=== PATIENT | female | born 1945 | race Caucasian/White ===

== ENCOUNTER 2020-09-03 09:48 | Outpatient (REF) | payer MEDICARE, SELFPAY ==
--- NOTE | ~2020-09-03 | XR_ITS ---
EXAMINATION: XR LUMBOSACRAL SPINE CLINICAL INFORMATION: Lumbar radiculopathy. COMPARISON: Lumbar spine radiographs dated 07/08/2016. TECHNIQUE: 3 views of the lumbosacral spine. FINDINGS: Mild levocurvature of the lumbar spine is unchanged. No acute fracture or subluxation. No loss of vertebral body height. Multilevel loss of intervertebral disc height with endplate osteophytes. Multilevel bilateral facet arthropathy. Findings have slightly progressed when compared to the prior radiographs. No lytic or blastic osseous lesion. Atherosclerotic calcifications. XR/XR lumbar spine 2-3V IMPRESSION: Prominent multilevel degenerative disc disease and bilateral facet arthropathy, slightly progressed when compared to the prior radiographs.
[2020-09-03 10:42] LABS: MANUAL DIFF FLAG NO
[2020-09-03 11:00] LABS: Basophils Percent Auto 0.4 % (0-2); Eosinophils Absolute Auto 0.2 X10*3/uL (0.0-0.4); Eosinophils Percent Auto 4.2 % (0-4); Hematocrit 28.2 % (37-47); Hemoglobin 8.7 g/dl (12.0-16.0); Imm Gran Abs Auto 0.01 X10*3/uL (0.00-0.03); Imm Gran Pct Auto 0.2 % (0.0-0.4); Lymphocytes Absolute Auto 0.9 X10*3/uL (1.2-4.9); Lymphocytes Percent Auto 17.9 % (20-40); Mean Corpuscular HGB Conc 30.9 g/dl (31.0-35.0); Mean Corpuscular Volume 84.2 fL (80-98); Mean Platelet Volume 9.8 fL (9.4-12.3); Monocytes Absolute Auto 0.5 X10*3/uL (0.1-1.2); Monocytes Percent Auto 10.1 % (2-11); Neutrophils Absolute Auto 3.5 X10*3/uL (2.0-8.3); Neutrophils Percent Auto 67.2 % (45-73); Platelet Count 153 X10*3/uL (160-400); Red Blood Count 3.35 X10*6/uL (4.20-5.50); Red Cell Distribution Width 14.3 % (11.0-16.0); White Blood Count 5.3 X10*3/uL (4.8-10.8)
[2020-09-03 11:22] LABS: Alanine Aminotransferase 15 U/L (0-31); Albumin Level 3.9 g/dL (3.5-5.0); Alkaline Phosphatase 78 U/L (39-117); Anion Gap 16 (12-20); Aspartate Amino Transferase 21 U/L (5-31); Bilirubin Total 0.4 mg/dL (0.0-1.0); Blood Urea Nitrogen 24 mg/dL (9-16); Calcium 9.1 mg/dL (8.4-10.2); Carbon Dioxide 24 mmol/L (22-29); Chloride 98 mmol/L (96-108); Cholesterol 112 mg/dL; Estimated Glomerular Filt Rate 42; Glucose Fasting 142 mg/dL (60-99); HDL Cholesterol 42 mg/dL; LDL Cholesterol Calculated 57 mg/dl; Potassium 4.9 mmol/L (3.3-5.1); Sodium 133 mmol/L (135-145); Total Protein 6.8 g/dL (6.5-8.0); Triglycerides 67 mg/dL; Uric Acid 4.3 mg/dL (2.4-5.7)
[2020-09-03 11:48] LABS: Thyroid Stimulating Hormone 2.44 uIU/mL (0.32-4.0)
[2020-09-07 13:32] LABS: Vitamin D 25-OH, D2 <4 ng/mL; Vitamin D 25-OH, D3 36 ng/mL; Vitamin D 25-OH, Total 36 ng/mL (30-100)
== END 2020-09-03 09:49 | disposition home or self-care (01) ==
LOC: HO.XRAY 09:48
PROVIDERS: PCP Internal Medicine; Visit Provider Internal Medicine
DX: M54.16 Radiculopathy, lumbar region (principal); E78.00 Pure hypercholesterolemia, unspecified; M10.9 Gout, unspecified; E78.5 Hyperlipidemia, unspecified; E55.9 Vitamin D deficiency, unspecified; D64.9 Anemia, unspecified; D61.818 Other pancytopenia; L65.9 Nonscarring hair loss, unspecified
CPT/HCPCS: 36415; 72100; 80053; 80061; 82306; 84443; 84550; 85025

== ENCOUNTER → 2020-09-09 09:56 | Outpatient (BNVA) | payer MEDICARE, SELFPAY | PROVIDERS: PCP Internal Medicine; Visit Provider Student in an Organized Health Care Education/Training Program | DX: M70.61 Trochanteric bursitis, right hip (principal); M16.11 Unilateral primary osteoarthritis, right hip; M25.551 Pain in right hip; I10 Essential (primary) hypertension; E78.00 Pure hypercholesterolemia, unspecified; F41.8 Other specified anxiety disorders; Z87.891 Personal history of nicotine dependence; Z79.4 Long term (current) use of insulin; Z79.899 Other long term (current) drug therapy | CPT/HCPCS: 20610; 99212 ==

== ENCOUNTER → 2020-09-15 14:21 | Outpatient (BNVA) | payer MEDICARE, SELFPAY | PROVIDERS: PCP Internal Medicine; Visit Provider Internal Medicine | DX: E11.9 Type 2 diabetes mellitus without complications (principal); E78.5 Hyperlipidemia, unspecified; I10 Essential (primary) hypertension | CPT/HCPCS: 82947; 99212 ==

== ENCOUNTER 2020-12-20 11:12 | Emergency (ER) | payer MEDICARE, SELFPAY ==
[2020-12-20] VITALS (7 sets, daily range): BP systolic 158–184; BP diastolic 53–82; PULSE 62–95; RESP 14–18; TEMP 36.1–36.6; O2SAT 94–99; BMI 34.5
--- NOTE | ~2020-12-20 | US_ITS ---
EXAMINATION: US VENOUS ULTRASOUND WITH DOPPLER LOWER EXTREMITY, BILATERAL CLINICAL INFORMATION: Fall and swelling to both legs, rule out DVT COMPARISON: None TECHNIQUE: Ultrasound of the deep veins is performed from the hip to the calf with compression sonography and color and pulse Doppler assessment. Spectral analysis with color-flow imaging is performed. FINDINGS: RIGHT: There is normal venous compression and respiratory variation and augmented flow. The visualized common femoral vein, superficial femoral vein, profunda femoral vein, popliteal vein, and the trifurcation region shows no evidence of deep venous thrombosis. There is no significant popliteal fossa cyst. LEFT: There is normal venous compression and respiratory variation and augmented flow. The visualized common femoral vein, superficial femoral vein, profunda femoral vein, popliteal vein, and the trifurcation region shows no evidence of deep venous thrombosis. There is no significant popliteal fossa cyst. If the patient's symptoms persist, followup ultrasound in 5 days 7 days might be of value to exclude proximal propagation from a non-visualized calf vein. US/US venous duplex LE BI IMPRESSION: No DVT demonstrated in the bilateral lower extremity.
--- NOTE | ~2020-12-20 | XR_ITS ---
EXAMINATION: CR RIGHT ANKLE. CR RIGHT HIP. CLINICAL INFORMATION: Fall. Right ankle pain. Right hip pain. COMPARISON: CT scan of the abdomen and pelvis dated 06/27/2019. Right ankle films dated 08/13/2013. TECHNIQUE: 3 views of the right ankle. Frontal view of the pelvis and 2 views of the right hip performed on 3 images. FINDINGS: Right ankle: Prominent bimalleolar soft tissue swelling is seen, asymmetrically affecting the lateral malleolus. Diffuse osteopenia is noted. No acute fracture or dislocation is seen. The ankle mortise is symmetric and intact. Previously noted lucency in the lateral talar dome is less well visualized. There are now new/progressive mild hypertrophic changes seen in the tibiotalar and tibiofibular joint. No significant ankle joint effusion seen. Moderate-sized plantar and posterior calcaneal spurs noted. Mild intertarsal spurring also seen. Pelvis and right hip: Bony pelvis appears intact. Evaluation of the mid and lower sacrum is, however, limited by overlying stool and gas filled loops of bowel. Sacroiliac joints and pubic symphysis remain intact. Both hip joints are intact, though there is significant limitation in evaluating the hip on the crosstable lateral views due to technical difficulties and overlap of structures. There is mild degenerative change seen in both hip joints with superior joint space narrowing and acetabular roof sclerosis, spurring and cystic change noted. XR/XR hip RT min 2V IMPRESSION: 1. Prominent soft tissue swelling about the ankle. No definite acute fracture. Degenerative changes in the ankle and hindfoot and midfoot as discussed above. 2. No acute fracture of the pelvis or right hip, though evaluation of the right hip on crosstable lateral view is significantly limited. If patient's symptoms persist, repeat radiograph in 7-10 days is suggested for reassessment versus evaluation with CT scan.
--- NOTE | 2020-12-20 11:35 | ED.LOWEXIN ---
HPI - Extremity Injury (Lower) General Chief Complaint: Extremity Injury, Lower Stated Complaint: fell a month ago Time Seen by Provider: 12/20/20 11:26 Source: patient and EMS Mode of arrival: EMS Limitations: no limitations History of Present Illness HPI Narrative: this is a 75 yo female came in by EMS for evaluation of right ankle and right hip pain. patient lives home alone mostly independent, patient fell last month hurt her right ankle and right hip, patient is be able to ambulate with difficulty, patient woke up this morning with increased pain to the right ankle. Patient declined any recent fall, no head injury, no other complaint of the patient. Related Data Home Medications Medication Instructions Recorded Confirmed albuterol sulfate 90 mcg/actuation 2 puff INHALATION Q4H PRN 01/31/20 10/30/20 aerosol inhaler docusate sodium 100 mg capsule 100 mg PO BID PRN 01/31/20 10/30/20 insulin aspart U-100 100 unit/mL 3 - 9 unit SUBCUT TID 01/31/20 10/30/20 (3 mL) subcutaneous pen lancets 33 gauge #100 ea 01/31/20 10/30/20 insulin glargine 100 unit/mL (3 24 unit SUBCUT BEDTIME ml 09/15/20 10/30/20 mL) subcutaneous pen (Lantus Solostar U-100 Insulin) Previous Rx's Medication Instructions Recorded lancets 28 gauge (FreeStyle #100 ea 01/22/20 Lancets) spironolactone 25 mg tablet 25 mg PO DAILY 90 Days #90 tab 03/11/20 colchicine 0.6 mg capsule 0.6 mg PO DAILY 30 Days #30 cap 04/17/20 blood sugar diagnostic (FreeStyle 1 strip MISCELLANEOUS TID 90 Days 07/21/20 Lite Strips) #200 strip alcohol swabs 1 pad TOPICAL TID 67 Days #200 ea 07/22/20 triamcinolone acetonide 0.1 % 1 appl TOPICAL BID PRN 30 Days #80 07/24/20 topical cream g ascorbic acid (vitamin C) 500 mg 500 mg PO BID 90 Days #180 tab 08/19/20 tablet ferrous sulfate 325 mg (65 mg 325 mg PO DAILY 90 Days #90 tab 09/03/20 iron) tablet,delayed release metformin 1,000 mg tablet 1,000 mg PO BID 90 Days #180 tab 09/18/20 gabapentin 800 mg tablet 800 mg PO .every 6 hours 30 Days 09/25/20 #120 tab pen needle, diabetic 32 gauge x #50 ea 09/25/20 furosemide 20 mg tablet 20 mg PO BID 30 Days #60 tab 09/28/20 albuterol sulfate 2.5 mg INHALATION TID 30 Days #270 10/14/20 ml liraglutide 0.6 mg/0.1 mL (18 mg/3 1.8 mg SUBCUT DAILY 30 Days #9 ml 10/15/20 mL) subcutaneous pen injector ([employer] 3-Aric) atorvastatin 20 mg tablet 20 mg PO DAILY 90 Days #90 tab 10/18/20 montelukast 10 mg tablet 10 mg PO BEDTIME 90 Days #90 tab 10/18/20 grab bars #3 ea 10/28/20 mupirocin 2 % topical ointment 1 appl TOPICAL BID 14 Days #15 g 11/07/20 calcium carbonate 600 mg (1,500 1 tab PO BID 90 Days #180 tab 11/12/20 mg)-vitamin D3 400 unit tablet allopurinol 300 mg tablet 300 mg PO DAILY 90 Days #90 tab 12/02/20 clonazepam 0.5 mg tablet 0.5 mg PO BID PRN 30 Days #60 tab 12/02/20 tramadol 50 mg tablet 50 mg PO Q6H PRN 30 Days #120 tab 12/02/20 blood-glucose meter (FreeStyle #1 ea 12/15/20 Cathay Lite) losartan 50 mg tablet 50 mg PO DAILY 90 Days #90 tab 12/18/20 Allergies Allergy/AdvReac Type Severity Reaction Status Date / Time No Known Allergies Allergy Verified 10/02/20 14:09 Review of Systems Review of Systems: All other systems are reviewed and are negative Constitutional: Reports as per HPI and Reports no additional constitutional complaints Eyes: Reports as per HPI and Reports no additional eye complaints Reports system reviewed and no additional complaints, except as documented Cardiovascular: Reports as per HPI and Reports no additional cardiovascular complaints Respiratory: Reports as per HPI and Reports no additional respiratory complaints Gastrointestinal: Reports as per HPI and Reports no additional gastrointestinal complaints Genitourinary: Reports no additional female genitourinary complaints Musculoskeletal: Reports no additional musculoskeletal complaints Skin/Breast: Reports system reviewed and no additional complaints, except as docu Psychiatric: Reports no additional psychiatric complaints Endocrine: Reports no additional endocrine complaints Hematologic/Lymphatic: Reports no additional hematologic/lymphatic complaints Allergic/Immunologic: Reports no additional allergic/immunologic complaints Reports system reviewed and no additional complaints, except as documented and Reports Abnormal speech present FOR[facility]LY [facility] Past Medical History Medical History Chronic alcoholic liver disease Constipation by delayed colonic transit Depression with anxiety Diabetes mellitus Essential hypertension Gout Hair loss Hearing loss HLD (hyperlipidemia) HTN (hypertension) Hypovitaminosis D Lumbar degenerative disc disease Lumbar radiculopathy Moderate asthma Neuropathy Numbness Pure hypercholesterolemia T2DM (type 2 diabetes mellitus) Umbilical hernia Surgical History H/O cervical biopsy History of appendectomy History of colonoscopy History of total abdominal hysterectomy and bilateral salpingo-oophorectomy Family History Family History Father Renal failure Mother Fatty liver Ovarian cancer Maternal Aunt Ovarian cancer Breast cancer Brother Colon cancer Social History Social History Housing: Apartment Alcohol intake: former Patient Tobacco Use Status: Former Tobacco user Tobacco use type: Cigarette e-Cigarette/Vaping Use: Never Used Second Hand Smoke Exposure: No Advance Directives: No Advance Directives Information Provided: No service: No Current occupational status: employed Physical Exam Vital Signs: Vital Signs: Last Vital Signs Temp 97.0 F 12/20/20 11:33 Pulse 68 12/20/20 11:33 Resp 15 12/20/20 11:33 BP 184/78 H 12/20/20 11:33 Pulse Ox 94 12/20/20 11:33 Body Mass Index 34.5 Vital signs have been reviewed as appeared to be correct. Blood pressure elevated. Heart rate normal. Respiration rate normal. Temperature normal. Oxygen saturation normal. Appearance: Alert. Oriented X3. No acute distress. Head: Normal external exam. Normocephalic. Atraumatic. No Perez signs noted. No raccoon eyes noted Eyes: PERRLA. EOMI. Conjunctiva and sclera normal. Eyelids normal. ENT: TM's Normal. Pharynx normal. Uvula midline. Moist mucous membranes. No trismus noted. No drooling noted. No muffled voice noted. Neck: Normal inspection. Neck supple. FROM. No adenopathy. Thyroid Normal. No meningeal signs. No neck mass noted. CVS: Normal heart rate and rhythm. Heart sound normal. No murmurs noted. Pulses normal throughout. Respiratory: No respiratory distress. Painless inspiration. Breath sounds normal. No wheezes/rales/rhonchi noted. Chest nontender. No accessory muscle usage noted or decreased air movement noted. Abdomen: Soft and nontender. Bowel sounds normal in all 4 quadrants. No distention noted. No organomegaly noted. No visible injury noted. Back: No CVA tenderness. Full range of motion noted. Skin: Skin warm and dry. Normal skin color. Normal skin turgor. No rashes/lesions/lacerations noted. Extremities: Right lower ext. exam.: Right ankle normal inspection, tender to touch diffusely, no step-off, no deformity. Right hip exam is normal inspection, no deformity, tender to touch. Neuro: Oriented X 3. Cranial nerve exam: II-XII are grossly intact No motor deficit. No sensory deficit. Reflexes normal. Course Course Course Narrative: Assessment and plan. 75-year-old female's [place] came in for evaluation a fall month ago complaining of right hip/right ankle pain, exam and x-rays are unremarkable, labs are overall unremarkable in normal range. As discussed with the patient we will place the patient into a rehab/physical therapy. Reevaluation(s) Reevaluation #1: Physician observation started at 13;45 . Patient placed in physician observation because the patient needed more time for medication to work and to see PT/case management for evaluation and the need for placement patient's vital sign were stable, patient is alert and oriented , neuro exam unchanged, unremarkable rest of physical exam. Time: 13:45 MDM - Extremity Injury (Lower) Medical Records Attestation: I reviewed the patient's medical records. Lab Data Attestation: I reviewed the patient's lab results. Result diagrams: 12/20/20 13:06 12/20/20 13:06 Labs: Lab Results 12/20/20 12/20/20 Range/Units 13:06 13:06 WBC 6.0 (4.8-10.8) X10*3/uL RBC 3.78 L (4.20-5.50) X10*6/uL Hgb 11.3 L (12.0-16.0) g/dl Hct 35.0 L (37.0-47.0) % MCV 92.6 (80.0-98.0) fL MCH 29.9 (27.0-33.0) pg MCHC 32.3 (31.0-35.0) g/dl RDW 16.7 H (11.0-16.0) % Plt Count 145 L (160-400) X10*3/uL MPV 8.7 L (9.4-12.3) fL Immature Gran % (Auto) 0.2 (0.0-0.4) % Neut % (Auto) 73.9 H (45-73) % Lymph % (Auto) 15.4 L (20-40) % [place] % (Auto) 6.3 (2-11) % Eos % (Auto) 3.7 (0-4) % Baso % (Auto) 0.5 (0-2) % Lymph # (Auto) 0.9 L (1.2-4.9) X10*3/uL [place] # (Auto) 0.4 (0.1-1.2) X10*3/uL Eos # (Auto) 0.2 (0.0-0.4) X10*3/uL Baso # (Auto) 0.0 (0.0-0.2) X10*3/uL Abs Immat Gran (auto) 0.01 (0.00-0.03) X10*3/uL Absolute Neuts (auto) 4.45 (2.0-8.3) x10*3/uL Absolute Nucleated RBC 0.000 (0.0-0.012) X10*3/uL Nucleated RBC % (auto) 0.0 (0.0-0.2) /100WBC Sodium 140 (135-145) mmol/L Potassium 5.0 (3.3-5.1) mmol/L Chloride 99 (96-108) mmol/L Carbon Dioxide 32 H (22-29) mmol/L Anion Gap 14 (12-20) BUN 35 H (9-16) mg/dL Creatinine 1.35 (0.5-1.4) mg/dL Estim Creat Clear Calc 37.3 Estimated GFR 38 Random Glucose 147 H (60-115) mg/dL Calcium 9.8 (8.4-10.2) mg/dL Imaging Data Right ankle/right hip x-ray: Radiologist's impression: 1. Prominent soft tissue swelling about the ankle. No definite acute fracture. Degenerative changes in the ankle and hindfoot and midfoot as discussed above. 2. No acute fracture of the pelvis or right hip, though evaluation of the right hip on crosstable lateral view is significantly limited. If patient's symptoms persist, repeat radiograph in 7-10 days is suggested for reassessment versus evaluation with CT scan. Right lower extremities venous ultrasound: Radiologist's impression: No DVT demonstrated in bilateral lower extremities. Discharge Plan Discharge Clinical Impression: Adult failure to thrive, Ankle pain, Acute hip pain Prescriptions: No Action (DME) lancets [FreeStyle Lancets] 28 gauge misc See Rx Instructions .ROUTE .MEDSUPPLY Qty: 100 RF: 11 Hold Instructions: patient's request spironolactone 25 mg tablet 25 mg PO DAILY 90 Days Qty: 90 RF: 3 colchicine 0.6 mg capsule 0.6 mg PO DAILY 30 Days Qty: 30 RF: 0 blood sugar diagnostic [FreeStyle Lite Strips] Strip 1 strip miscellaneous TID 90 Days Qty: 200 RF: 3 Hold Instructions: patient request alcohol swabs Pads, Medicated 1 pad topical TID 67 Days Qty: 200 RF: 5 triamcinolone acetonide 0.1 % cream 1 appl topical BID PRN (Reason: rash) 30 Days Qty: 80 RF: 4 ascorbic acid (vitamin C) 500 mg tablet 500 mg PO BID 90 Days Qty: 180 RF: 3 ferrous sulfate 325 mg (65 mg iron) tablet,delayed release (DR/EC) 325 mg PO DAILY 90 Days Qty: 90 RF: 1 metformin 1,000 mg tablet 1,000 mg PO BID 90 Days Qty: 180 RF: 3 (DME) pen needle, diabetic 32 gauge x 5/32 needle See Rx Instructions ea .ROUTE TID Qty: 50 RF: 11 gabapentin 800 mg tablet 800 mg PO .every 6 hours 30 Days Qty: 120 RF: 6 furosemide 20 mg tablet 20 mg PO BID 30 Days Qty: 60 RF: 6 albuterol sulfate 2.5 mg /3 mL (0.083 %) solution for nebulization 2.5 mg inhalation TID 30 Days Qty: 270 RF: 3 Hold Instructions: Doctor's Order [employer] 3-Aric 0.6 mg/0.1 mL (18 mg/3 mL) pen injector 1.8 mg subcut DAILY 30 Days Qty: 9 RF: 6 montelukast 10 mg tablet 10 mg PO BEDTIME 90 Days Qty: 90 RF: 1 atorvastatin 20 mg tablet 20 mg PO DAILY 90 Days Qty: 90 RF: 3 (DME) grab bars See Rx Instructions .Route .MEDSUPPLY Qty: 3 RF: 0 mupirocin 2 % ointment 1 appl topical BID 14 Days Qty: 15 RF: 1 calcium carbonate-vitamin D3 600 mg(1,500mg) -400 unit tablet 1 tab PO BID 90 Days Qty: 180 RF: 3 clonazepam 0.5 mg tablet 0.5 mg PO BID PRN (Reason: anxiety) 30 Days Qty: 60 RF: 0 allopurinol 300 mg tablet 300 mg PO DAILY 90 Days Qty: 90 RF: 3 tramadol 50 mg tablet 50 mg PO Q6H PRN (Reason: pain) 30 Days Qty: 120 RF: 0 (DME) blood-glucose meter [FreeStyle Cathay Lite] Kit See Rx Instructions .ROUTE .MEDSUPPLY Qty: 1 RF: 0 losartan 50 mg tablet 50 mg PO DAILY 90 Days Qty: 90 RF: 3 docusate sodium 100 mg capsule 100 mg PO BID PRN (Reason: Constipation) RF: 0 (DME) lancets 33 gauge misc See Rx Instructions ea .ROUTE .MEDSUPPLY Qty: 100 RF: 0 Hold Instructions: patient's request insulin aspart U-100 100 unit/mL (3 mL) insulin pen 3 - 9 unit subcut TID RF: 0 albuterol sulfate 90 mcg/actuation HFA aerosol inhaler 2 puff inhalation Q4H PRN (Reason: Wheezing) RF: 0 Lantus Solostar U-100 Insulin 100 unit/mL (3 mL) insulin pen 24 unit subcut BEDTIME RF: 0
[2020-12-20 13:10] LABS: MANUAL DIFF FLAG NO
[2020-12-20 13:19] LABS: Basophils Percent Auto 0.5 % (0-2); Eosinophils Absolute Auto 0.2 X10*3/uL (0.0-0.4); Eosinophils Percent Auto 3.7 % (0-4); Hemoglobin 11.3 g/dl (12.0-16.0); Imm Gran Abs Auto 0.01 X10*3/uL (0.00-0.03); Imm Gran Pct Auto 0.2 % (0.0-0.4); Lymphocytes Absolute Auto 0.9 X10*3/uL (1.2-4.9); Lymphocytes Percent Auto 15.4 % (20-40); Mean Corpuscular HGB Conc 32.3 g/dl (31.0-35.0); Mean Corpuscular Hemoglobin 29.9 pg (27.0-33.0); Mean Corpuscular Volume 92.6 fL (80.0-98.0); Mean Platelet Volume 8.7 fL (9.4-12.3); Monocytes Absolute Auto 0.4 X10*3/uL (0.1-1.2); Monocytes Percent Auto 6.3 % (2-11); Neutrophils Absolute Auto 4.45 x10*3/uL (2.0-8.3); Neutrophils Percent Auto 73.9 % (45-73); Platelet Count 145 X10*3/uL (160-400); Red Blood Count 3.78 X10*6/uL (4.20-5.50); Red Cell Distribution Width 16.7 % (11.0-16.0)
[2020-12-20 13:27] LABS: Anion Gap 14 (12-20); Blood Urea Nitrogen 35 mg/dL (9-16); Calcium 9.8 mg/dL (8.4-10.2); Carbon Dioxide 32 mmol/L (22-29); Chloride 99 mmol/L (96-108); Creatinine Clr Calc Pharmacy 37.3; Estimated Glomerular Filt Rate 38; Glucose Random 147 mg/dL (60-115); Sodium 140 mmol/L (135-145)
--- NOTE | 2020-12-20 14:00 | PC.NURSE ---
pt at bedside
[2020-12-20 14:10] LABS: Appearance Urine CLEAR; Color Urine STRAW; Glucose Urine UA NEG (NEG); Leukocyte Esterase Urine NEG (NEG); Nitrite Urine NEG (NEG); PH 6.5 (5.0-8.0); Urine Blood NEG (NEG); Urine Ketones NEG (NEG); Urine Protein NEG (NEG-TRACE)
--- NOTE | 2020-12-20 14:23 | PC.NURSE ---
pt resting in bed at this time, awaiting dispo.
--- NOTE | 2020-12-20 15:32 | PC.NURSE ---
Jolanta Faith, daughter and proxy called,
--- NOTE | 2020-12-20 15:50 | MHC.CM.PN ---
Female 75 Consult received from ED, for placement. The patient BIBA for rt LE pain. A PT eval indicated that the pt will qualify for STR. The pt agrees with [facility] STR. Pt preferences obtained. Referral were sent out. The PT and ER info was sent for facility review. [facility] following [facility]. They will not have a bed until Tuesday. Several attempts to reach primary contact Jolanta Faith. There was not the option of leaving a . Second contact, Pts son, Nubia Faith was reached. He was notified of Pt coming to [facility] for LE pain. The discharge plan was reviewed.He was informed that She qualifies for rehab. He is aware that the pt provided preferences for STR. The referrals were sent. He is in agreement with discharge plan. He agreed to communicate our discussion to Jolanta because [facility] was not able to contact her. CM will follow.
[2020-12-20 15:53] LABS: Glucose, Whole Blood 87 mg/dL (60-115)
--- NOTE | 2020-12-20 16:14 | PC.NURSE ---
pt moved into room 9. cbg checked. denies any needs. call srinivasan in reach.
--- NOTE | 2020-12-20 18:29 | PC.NURSE ---
med rec done, aware.
[2020-12-20] MEDS: Colchicine 0.6 MG TABLET PO (20:30)
[2020-12-20] MEDS: Ferrous Sulfate 324 MG TABLET.DR PO (20:42)
[2020-12-20] MEDS: Spironolactone 25 MG TABLET PO (20:43)
[2020-12-20] MEDS: Gabapentin 400 MG CAPSULE 800 MG PO (20:43)
[2020-12-20] MEDS: Furosemide 20 MG TABLET PO (20:44)
[2020-12-20] MEDS: allopurinoL 300 MG TABLET PO (20:44)
[2020-12-20] MEDS: Losartan Potassium 50 MG TABLET PO (20:44)
[2020-12-20] MEDS: Calcium + Vitamin D 250 MG TABLET 500 MG PO (20:45)
[2020-12-20] MEDS: metFORMIN HCl 1,000 MG TABLET 1000 MG PO (20:45)
[2020-12-20] MEDS: Montelukast Sodium 10 MG TABLET PO (20:45)
[2020-12-20] MEDS: Atorvastatin Calcium 20 MG TABLET PO (20:45)
[2020-12-20] MEDS: Ascorbic Acid 500 MG TABLET PO (21:00)
[2020-12-20 22:42] LABS: Glucose, Whole Blood 162 mg/dL (60-115)
--- NOTE | 2020-12-21 00:04 | PC.NURSE ---
Moved pt to a hospital bed. Pt used commode before transfer to hospital bed. Pt has difficulty standing and moving to commode, recommended use of a pure wick. Pt agreeable to try for the night. Put pt on pure wick. Will continue to monitor.
--- NOTE | 2020-12-21 00:47 | PC.NURSE ---
Patient's insulin held due to BS of 162. aware.
[2020-12-21 03:40] VITALS: RESP 14
[2020-12-21 06:08] VITALS: BP 143/67; PULSE 70; RESP 14; O2SAT 95
[2020-12-21] MEDS: metFORMIN HCl 1,000 MG TABLET 1000 MG PO ×2 (09:02→20:57)
[2020-12-21] MEDS: Ascorbic Acid 500 MG TABLET PO ×2 (09:02→20:57)
[2020-12-21] MEDS: Calcium + Vitamin D 250 MG TABLET 500 MG PO ×2 (09:02→20:57)
[2020-12-21 09:03] VITALS: BP 143/67; PULSE 70
[2020-12-21] MEDS: Losartan Potassium 50 MG TABLET PO (09:03)
[2020-12-21] MEDS: Gabapentin 400 MG CAPSULE 800 MG PO ×3 (09:03→20:57)
[2020-12-21] MEDS: Ferrous Sulfate 324 MG TABLET.DR PO (09:03)
[2020-12-21] MEDS: allopurinoL 300 MG TABLET PO (09:03)
[2020-12-21] MEDS: Furosemide 20 MG TABLET PO ×2 (09:03→20:58)
[2020-12-21] MEDS: Spironolactone 25 MG TABLET PO (09:03)
[2020-12-21] MEDS: Atorvastatin Calcium 20 MG TABLET PO (09:04)
[2020-12-21] MEDS: traMADoL HCL 50 MG TABLET PO ×3 (09:09→15:56)
--- NOTE | 2020-12-21 09:23 | PC.NURSE ---
cleaned up in bathroom, bed linens changed, pt 2 assist. sts feeling stronger today than yesterday. tolerating po, took all of morning medications, eating breakfast at this time.
--- NOTE | 2020-12-21 11:33 | MHC.CM.PN ---
Addendum entered by Janny Rubalcava 12/21/20 15:01: Met with the patient this afternoon to review DP. I updated the patient on the bed search. [facility]. They did not have a bed over the weekend, but will offer if they have bed availability Tuesday. She told me that has been vaccinated x2 Moderna Feb 2020. I was notified by staff that there was an error in the # listed for Jolanta her primary contact. Using the correct #, I was able to leave a VM. I updated her on the bed search. The contact info for the ER tomorrow will be Ariane. Original Note: Female 75 DX LE pain s/p recent fall. We do not have a bed offer for today. R facilities are following for Tuesday, [facility]. More referrals have been sent out today with updated info. We have not received a bed offer yet, from the new facility referrals. T/W attempted to reach the 2 contacts listed. A VM was left requesting vaccine status. An update on the bed search was also communicated. CM will follow.
[2020-12-21 15:19] VITALS: BP 170/61; PULSE 64; RESP 16; O2SAT 94
[2020-12-21] MEDS: polyethylene glycoL 3350 17 GM POWD.PACK PO (15:56)
[2020-12-21] MEDS: Magnesium Citrate 300 ML SOLUTION 150 ML PO (19:02)
[2020-12-21 20:54] LABS: Glucose, Whole Blood 233 mg/dL (60-115)
[2020-12-21] MEDS: Montelukast Sodium 10 MG TABLET PO (20:57)
[2020-12-21] MEDS: Insulin Glargine,Hum.rec.anlog 100 UNIT/ML 10 ML VIAL 24 UNIT SUBCUT (20:57)
--- NOTE | 2020-12-21 21:01 | PC.NURSE ---
Pt is alert/oriented. Reports 6/10 right hip pain, repositioned in bed with some relief. Up to commode after Mag citrate, no bowel movement at this time. Reports last BM 4 days ago, adb is soft, nontender with +bowel sounds x 4 Pt given PM meds and Lantus, with HS snack. VSS.
[2020-12-21 21:06] VITALS: BP 152/76; PULSE 65; RESP 16
--- NOTE | 2020-12-22 02:53 | PC.NURSE ---
Pt asleep, RR even/unlabored
[2020-12-22] MEDS: Gabapentin 400 MG CAPSULE 800 MG PO ×3 (03:01→15:43)
[2020-12-22] MEDS: Ascorbic Acid 500 MG TABLET PO (09:26)
[2020-12-22] MEDS: Calcium + Vitamin D 250 MG TABLET 500 MG PO (09:26)
[2020-12-22] MEDS: Atorvastatin Calcium 20 MG TABLET PO (09:26)
[2020-12-22] MEDS: metFORMIN HCl 1,000 MG TABLET 1000 MG PO (09:26)
[2020-12-22 09:29] VITALS: BP 144/62; PULSE 66
[2020-12-22] MEDS: Spironolactone 25 MG TABLET PO (09:29)
[2020-12-22 09:32] VITALS: BP 146/62; PULSE 66
[2020-12-22] MEDS: allopurinoL 300 MG TABLET PO (09:32)
[2020-12-22] MEDS: Losartan Potassium 50 MG TABLET PO (09:32)
--- NOTE | 2020-12-22 09:34 | MHC.CM.ED ---
Patient remains in ER. Clinical updates sent to facilities still following patient: [facility] and [facility]. Continue to monitor for d/c needs.
[2020-12-22] MEDS: Furosemide 20 MG TABLET PO (09:35)
[2020-12-22 09:37] VITALS: BP 146/62; PULSE 66; RESP 16; O2SAT 97
--- NOTE | 2020-12-22 09:52 | PC.NURSE ---
pt alert, vss. pt given breakfast, morning meds given as documented. pt denies chest pain/sob. pt reports 4/10 pain in both her right arm and knee. Pt resting quietly, no apparent distress noted.
[2020-12-22] MEDS: Colchicine 0.6 MG TABLET PO (11:29)
--- NOTE | 2020-12-22 11:30 | PC.NURSE ---
Pt reported she has not had a b.m. in 4 days. she stated she was given something this morning to help her go but it did not help. Pt requested something else to help her with her bowels. PRN Colace given. Pharmacy brought med up, med administered late.
[2020-12-22] MEDS: Docusate Sodium 100 MG CAPSULE PO (11:41)
--- NOTE | 2020-12-22 13:04 | MHC.CM.ED ---
[facility] is only facility that is able to offer a bed. Spoke with patient's daughter, Jolanta, via telephone. Jolanta accepts bed. [facility] will go for insurance auth. Rapid Covid swab is ordered. Continue to monitor for d/c needs.
[2020-12-22 14:03] LABS: COVID-19 Test Negative (Negative)
--- NOTE | 2020-12-22 15:41 | MHC.CM.ED ---
Insurance auth has been obtained by [facility]. Patient can leave at 530pm. [facility] booked. Med nec with chart. Patient, daughter Antonio Stover RN and Dr Bailey aware. Continue to moior for d/c needs.
[2020-12-22 15:46] VITALS: BP 157/73; PULSE 68; RESP 18; O2SAT 97
--- NOTE | 2020-12-22 16:00 | PC.NURSE ---
pt accepted to [facility] pt to be transported to facility via ambulance around 1730. pt aware. lunch given, vss. daughter at bedside.
== END 2020-12-22 18:56 | disposition skilled nursing facility (03) ==
PROVIDERS: Emergency Medicine; Emergency Provider Emergency Medicine; PCP Internal Medicine
DX: R62.7 Adult failure to thrive (principal); M25.572 Pain in left ankle and joints of left foot; M25.571 Pain in right ankle and joints of right foot; M25.552 Pain in left hip; M25.551 Pain in right hip; R60.0 Localized edema; Z20.822 Contact with and (suspected) exposure to COVID-19; Z79.899 Other long term (current) drug therapy
CPT/HCPCS: 36415; 73502; 73600; 80048; 81003; 82947; 85025; 87635; 93970; 97162; 99285

== ENCOUNTER 2020-12-23 06:40 | Outpatient (REF) | payer MEDICARE, SELFPAY ==
[2020-12-23 06:45] LABS: MANUAL DIFF FLAG NO
[2020-12-23 06:55] LABS: Basophils Absolute Auto 0.1 X10*3/uL (0.0-0.2); Basophils Percent Auto 0.8 % (0-2); Eosinophils Absolute Auto 0.3 X10*3/uL (0.0-0.4); Eosinophils Percent Auto 3.3 % (0-4); Hematocrit 37.7 % (37.0-47.0); Hemoglobin 12.1 g/dl (12.0-16.0); Imm Gran Abs Auto 0.02 X10*3/uL (0.00-0.03); Imm Gran Pct Auto 0.3 % (0.0-0.4); Lymphocytes Absolute Auto 1.2 X10*3/uL (1.2-4.9); Lymphocytes Percent Auto 16.4 % (20-40); Mean Corpuscular HGB Conc 32.1 g/dl (31.0-35.0); Mean Corpuscular Volume 90.4 fL (80.0-98.0); Mean Platelet Volume 9.7 fL (9.4-12.3); Monocytes Absolute Auto 0.6 X10*3/uL (0.1-1.2); Monocytes Percent Auto 7.5 % (2-11); Neutrophils Absolute Auto 5.42 x10*3/uL (2.0-8.3); Neutrophils Percent Auto 71.7 % (45-73); Platelet Count 210 X10*3/uL (160-400); Red Blood Count 4.17 X10*6/uL (4.20-5.50); Red Cell Distribution Width 16.1 % (11.0-16.0); White Blood Count 7.6 X10*3/uL (4.8-10.8)
[2020-12-23 07:12] LABS: Alanine Aminotransferase 19 U/L (0-31); Albumin Level 4.1 g/dL (3.5-5.0); Alkaline Phosphatase 86 U/L (39-117); Anion Gap 17 (12-20); Aspartate Amino Transferase 22 U/L (5-31); Bilirubin Total 0.6 mg/dL (0.0-1.0); Blood Urea Nitrogen 38 mg/dL (9-16); Calcium 9.8 mg/dL (8.4-10.2); Carbon Dioxide 28 mmol/L (22-29); Chloride 98 mmol/L (96-108); Estimated Glomerular Filt Rate 43; Glucose Random 173 mg/dL (60-115); Potassium 4.8 mmol/L (3.3-5.1); Sodium 138 mmol/L (135-145); Total Protein 7.3 g/dL (6.5-8.0)
== END 2020-12-23 06:41 | disposition home or self-care (01) ==
LOC: HO.MMNH1L 06:40
PROVIDERS: Visit Provider Family Medicine
DX: I10 Essential (primary) hypertension (principal); E11.9 Type 2 diabetes mellitus without complications; K76.9 Liver disease, unspecified
CPT/HCPCS: 36415; 80053; 85025

== ENCOUNTER 2020-12-29 00:31 | Outpatient (REF) | payer MEDICARE, SELFPAY ==
[2020-12-29 06:25] LABS: MANUAL DIFF FLAG NO
[2020-12-29 06:53] LABS: Basophils Absolute Auto 0.1 X10*3/uL (0.0-0.2); Basophils Percent Auto 0.9 % (0-2); Eosinophils Absolute Auto 0.2 X10*3/uL (0.0-0.4); Eosinophils Percent Auto 4.4 % (0-4); Hematocrit 34.4 % (37.0-47.0); Imm Gran Abs Auto 0.01 X10*3/uL (0.00-0.03); Imm Gran Pct Auto 0.2 % (0.0-0.4); Lymphocytes Absolute Auto 1.6 X10*3/uL (1.2-4.9); Lymphocytes Percent Auto 29.2 % (20-40); Mean Corpuscular Hemoglobin 29.9 pg (27.0-33.0); Mean Corpuscular Volume 93.5 fL (80.0-98.0); Mean Platelet Volume 9.4 fL (9.4-12.3); Monocytes Absolute Auto 0.5 X10*3/uL (0.1-1.2); Monocytes Percent Auto 8.5 % (2-11); Neutrophils Absolute Auto 3.1 x10*3/uL (2.0-8.3); Neutrophils Percent Auto 56.8 % (45-73); Platelet Count 148 X10*3/uL (160-400); Red Blood Count 3.68 X10*6/uL (4.20-5.50); Red Cell Distribution Width 15.4 % (11.0-16.0); White Blood Count 5.4 X10*3/uL (4.8-10.8)
[2020-12-29 07:52] LABS: Anion Gap 15 (12-20); Blood Urea Nitrogen 40 mg/dL (9-16); Calcium 8.8 mg/dL (8.4-10.2); Carbon Dioxide 30 mmol/L (22-29); Chloride 101 mmol/L (96-108); Estimated Glomerular Filt Rate 44; Glucose Random 40 mg/dL (60-115); Potassium 3.9 mmol/L (3.3-5.1); Sodium 142 mmol/L (135-145)
== END 2020-12-29 00:32 | disposition home or self-care (01) ==
LOC: HO.MMNH1L 00:31
PROVIDERS: Visit Provider Family Medicine
DX: K76.9 Liver disease, unspecified (principal); I10 Essential (primary) hypertension; E11.9 Type 2 diabetes mellitus without complications
CPT/HCPCS: 36415; 80048; 85025

== ENCOUNTER 2021-01-05 00:30 | Outpatient (REF) | payer MEDICARE, SELFPAY ==
[2021-01-05 07:11] LABS: MANUAL DIFF FLAG NO
[2021-01-05 07:30] LABS: Basophils Percent Auto 0.5 % (0-2); Eosinophils Absolute Auto 0.3 X10*3/uL (0.0-0.4); Eosinophils Percent Auto 4.8 % (0-4); Hematocrit 35.3 % (37.0-47.0); Lymphocytes Absolute Auto 1.5 X10*3/uL (1.2-4.9); Lymphocytes Percent Auto 26.2 % (20-40); Mean Corpuscular HGB Conc 31.2 g/dl (31.0-35.0); Mean Corpuscular Hemoglobin 29.5 pg (27.0-33.0); Mean Corpuscular Volume 94.6 fL (80.0-98.0); Monocytes Absolute Auto 0.6 X10*3/uL (0.1-1.2); Neutrophils Absolute Auto 3.3 x10*3/uL (2.0-8.3); Neutrophils Percent Auto 58.5 % (45-73); Platelet Count 147 X10*3/uL (160-400); Red Blood Count 3.73 X10*6/uL (4.20-5.50); Red Cell Distribution Width 14.9 % (11.0-16.0); White Blood Count 5.6 X10*3/uL (4.8-10.8)
[2021-01-05 08:09] LABS: Anion Gap 16 (12-20); Blood Urea Nitrogen 35 mg/dL (9-16); Calcium 9.6 mg/dL (8.4-10.2); Carbon Dioxide 33 mmol/L (22-29); Chloride 98 mmol/L (96-108); Estimated Glomerular Filt Rate 32; Glucose Random 76 mg/dL (60-115); Potassium 4.5 mmol/L (3.3-5.1); Sodium 142 mmol/L (135-145)
== END 2021-01-05 00:31 | disposition home or self-care (01) ==
LOC: HO.MMNH1L 00:30
PROVIDERS: Visit Provider Family Medicine
DX: K76.9 Liver disease, unspecified (principal); I10 Essential (primary) hypertension; E11.9 Type 2 diabetes mellitus without complications
CPT/HCPCS: 36415; 80048; 85025

== ENCOUNTER 2021-01-12 22:06 | Outpatient (REF) | payer MEDICARE, SELFPAY ==
[2021-01-12 06:53] LABS: MANUAL DIFF FLAG NO
[2021-01-12 07:05] LABS: Basophils Percent Auto 0.5 % (0-2); Eosinophils Absolute Auto 0.2 X10*3/uL (0.0-0.4); Hematocrit 33.9 % (37.0-47.0); Hemoglobin 10.5 g/dl (12.0-16.0); Imm Gran Abs Auto 0.01 X10*3/uL (0.00-0.03); Imm Gran Pct Auto 0.2 % (0.0-0.4); Lymphocytes Percent Auto 24.7 % (20-40); Mean Corpuscular Hemoglobin 29.7 pg (27.0-33.0); Monocytes Absolute Auto 0.4 X10*3/uL (0.1-1.2); Monocytes Percent Auto 9.1 % (2-11); Neutrophils Absolute Auto 2.5 x10*3/uL (2.0-8.3); Neutrophils Percent Auto 60.5 % (45-73); Platelet Count 121 X10*3/uL (160-400); Red Blood Count 3.53 X10*6/uL (4.20-5.50); Red Cell Distribution Width 14.7 % (11.0-16.0); White Blood Count 4.2 X10*3/uL (4.8-10.8)
[2021-01-12 07:22] LABS: Anion Gap 16 (12-20); Blood Urea Nitrogen 35 mg/dL (9-16); Calcium 9.6 mg/dL (8.4-10.2); Carbon Dioxide 31 mmol/L (22-29); Chloride 102 mmol/L (96-108); Estimated Glomerular Filt Rate 38; Glucose Random 63 mg/dL (60-115); Potassium 4.2 mmol/L (3.3-5.1); Sodium 145 mmol/L (135-145)
== END 2021-01-12 22:07 | disposition home or self-care (01) ==
LOC: HO.MMNH1L 22:06
PROVIDERS: Visit Provider Family Medicine
DX: K76.9 Liver disease, unspecified (principal); I10 Essential (primary) hypertension; E11.9 Type 2 diabetes mellitus without complications
CPT/HCPCS: 36415; 80048; 85025

== ENCOUNTER 2021-01-19 00:56 | Outpatient (REF) | payer MEDICARE, SELFPAY ==
[2021-01-19 06:40] LABS: MANUAL DIFF FLAG NO
[2021-01-19 06:54] LABS: Basophils Percent Auto 0.7 % (0-2); Eosinophils Absolute Auto 0.2 X10*3/uL (0.0-0.4); Eosinophils Percent Auto 4.2 % (0-4); Hemoglobin 10.5 g/dl (12.0-16.0); Imm Gran Abs Auto 0.01 X10*3/uL (0.00-0.03); Imm Gran Pct Auto 0.2 % (0.0-0.4); Lymphocytes Absolute Auto 1.2 X10*3/uL (1.2-4.9); Lymphocytes Percent Auto 28.1 % (20-40); Mean Corpuscular HGB Conc 30.9 g/dl (31.0-35.0); Mean Corpuscular Hemoglobin 29.8 pg (27.0-33.0); Mean Corpuscular Volume 96.6 fL (80.0-98.0); Monocytes Absolute Auto 0.4 X10*3/uL (0.1-1.2); Monocytes Percent Auto 8.2 % (2-11); Neutrophils Absolute Auto 2.5 x10*3/uL (2.0-8.3); Neutrophils Percent Auto 58.6 % (45-73); Platelet Count 118 X10*3/uL (160-400); Red Blood Count 3.52 X10*6/uL (4.20-5.50); Red Cell Distribution Width 14.6 % (11.0-16.0); White Blood Count 4.3 X10*3/uL (4.8-10.8)
[2021-01-19 07:28] LABS: Anion Gap 15 (12-20); Blood Urea Nitrogen 35 mg/dL (9-16); Calcium 9.8 mg/dL (8.4-10.2); Carbon Dioxide 30 mmol/L (22-29); Chloride 100 mmol/L (96-108); Estimated Glomerular Filt Rate 38; Glucose Random 106 mg/dL (60-115); Potassium 4.2 mmol/L (3.3-5.1); Sodium 141 mmol/L (135-145)
== END 2021-01-19 00:57 | disposition home or self-care (01) ==
LOC: HO.MMNH1L 00:56
PROVIDERS: Visit Provider Family Medicine
DX: I10 Essential (primary) hypertension (principal); E11.9 Type 2 diabetes mellitus without complications; K76.9 Liver disease, unspecified
CPT/HCPCS: 36415; 80048; 85025

== ENCOUNTER 2021-01-26 00:16 | Outpatient (REF) | payer MEDICARE, SELFPAY ==
[2021-01-26 07:34] LABS: MANUAL DIFF FLAG NO
[2021-01-26 08:06] LABS: Basophils Percent Auto 0.4 % (0-2); Eosinophils Absolute Auto 0.2 X10*3/uL (0.0-0.4); Hematocrit 34.5 % (37.0-47.0); Imm Gran Abs Auto 0.02 X10*3/uL (0.00-0.03); Imm Gran Pct Auto 0.4 % (0.0-0.4); Lymphocytes Absolute Auto 1.5 X10*3/uL (1.2-4.9); Lymphocytes Percent Auto 28.4 % (20-40); Mean Corpuscular HGB Conc 31.9 g/dl (31.0-35.0); Mean Corpuscular Hemoglobin 30.7 pg (27.0-33.0); Mean Corpuscular Volume 96.4 fL (80.0-98.0); Mean Platelet Volume 10.1 fL (9.4-12.3); Monocytes Absolute Auto 0.4 X10*3/uL (0.1-1.2); Monocytes Percent Auto 8.4 % (2-11); Neutrophils Percent Auto 58.4 % (45-73); Platelet Count 131 X10*3/uL (160-400); Red Blood Count 3.58 X10*6/uL (4.20-5.50); Red Cell Distribution Width 14.5 % (11.0-16.0); White Blood Count 5.2 X10*3/uL (4.8-10.8)
[2021-01-26 08:51] LABS: Anion Gap 13 (12-20); Blood Urea Nitrogen 29 mg/dL (9-16); Calcium 9.4 mg/dL (8.4-10.2); Carbon Dioxide 32 mmol/L (22-29); Chloride 103 mmol/L (96-108); Estimated Glomerular Filt Rate 39; Glucose Random 55 mg/dL (60-115); Potassium 4.3 mmol/L (3.3-5.1); Sodium 144 mmol/L (135-145)
== END 2021-01-26 00:17 | disposition home or self-care (01) ==
LOC: HO.MMNH1L 00:16
PROVIDERS: Visit Provider Family Medicine
DX: K76.9 Liver disease, unspecified (principal); I10 Essential (primary) hypertension; E11.9 Type 2 diabetes mellitus without complications
CPT/HCPCS: 36415; 80048; 85025

== ENCOUNTER 2021-02-02 00:15 | Outpatient (REF) | payer MEDICARE, SELFPAY ==
[2021-02-02 06:28] LABS: MANUAL DIFF FLAG NO
[2021-02-02 06:59] LABS: Basophils Percent Auto 0.6 % (0-2); Eosinophils Absolute Auto 0.2 X10*3/uL (0.0-0.4); Eosinophils Percent Auto 3.8 % (0-4); Hemoglobin 10.9 g/dl (12.0-16.0); Imm Gran Abs Auto 0.01 X10*3/uL (0.00-0.03); Imm Gran Pct Auto 0.2 % (0.0-0.4); Lymphocytes Absolute Auto 1.2 X10*3/uL (1.2-4.9); Lymphocytes Percent Auto 24.9 % (20-40); Mean Corpuscular HGB Conc 31.1 g/dl (31.0-35.0); Mean Corpuscular Hemoglobin 30.2 pg (27.0-33.0); Mean Platelet Volume 10.2 fL (9.4-12.3); Monocytes Absolute Auto 0.5 X10*3/uL (0.1-1.2); Monocytes Percent Auto 11.3 % (2-11); Neutrophils Absolute Auto 2.8 x10*3/uL (2.0-8.3); Neutrophils Percent Auto 59.2 % (45-73); Platelet Count 125 X10*3/uL (160-400); Red Blood Count 3.61 X10*6/uL (4.20-5.50); Red Cell Distribution Width 14.3 % (11.0-16.0); White Blood Count 4.8 X10*3/uL (4.8-10.8)
[2021-02-02 07:21] LABS: Anion Gap 15 (12-20); Blood Urea Nitrogen 32 mg/dL (9-16); Calcium 9.8 mg/dL (8.4-10.2); Carbon Dioxide 33 mmol/L (22-29); Chloride 99 mmol/L (96-108); Estimated Glomerular Filt Rate 33; Glucose Random 99 mg/dL (60-115); Sodium 142 mmol/L (135-145)
== END 2021-02-02 00:16 | disposition home or self-care (01) ==
LOC: HO.MMNH1L 00:15
PROVIDERS: Visit Provider Family Medicine
DX: I10 Essential (primary) hypertension (principal); E11.9 Type 2 diabetes mellitus without complications; K76.9 Liver disease, unspecified
CPT/HCPCS: 36415; 80048; 85025

== ENCOUNTER 2021-02-09 01:27 | Outpatient (REF) | payer MEDICARE, SELFPAY ==
[2021-02-09 06:48] LABS: MANUAL DIFF FLAG NO
[2021-02-09 07:41] LABS: Anion Gap 12 (12-20); Blood Urea Nitrogen 31 mg/dL (9-16); Calcium 9.8 mg/dL (8.4-10.2); Carbon Dioxide 35 mmol/L (22-29); Chloride 103 mmol/L (96-108); Estimated Glomerular Filt Rate 34; Glucose Random 111 mg/dL (60-115); Potassium 4.5 mmol/L (3.3-5.1); Sodium 145 mmol/L (135-145)
[2021-02-09 08:53] LABS: Basophils Percent Auto 0.5 % (0-2); Eosinophils Absolute Auto 0.1 X10*3/uL (0.0-0.4); Eosinophils Percent Auto 3.3 % (0-4); Hemoglobin 11.1 g/dl (12.0-16.0); Imm Gran Abs Auto 0.02 X10*3/uL (0.00-0.03); Imm Gran Pct Auto 0.5 % (0.0-0.4); Lymphocytes Absolute Auto 1.3 X10*3/uL (1.2-4.9); Mean Corpuscular HGB Conc 30.8 g/dl (31.0-35.0); Mean Corpuscular Hemoglobin 29.6 pg (27.0-33.0); Mean Platelet Volume 10.3 fL (9.4-12.3); Monocytes Absolute Auto 0.3 X10*3/uL (0.1-1.2); Neutrophils Absolute Auto 2.4 x10*3/uL (2.0-8.3); Neutrophils Percent Auto 56.7 % (45-73); Platelet Count 122 X10*3/uL (160-400); Red Blood Count 3.75 X10*6/uL (4.20-5.50); Red Cell Distribution Width 14.2 % (11.0-16.0); White Blood Count 4.2 X10*3/uL (4.8-10.8)
== END 2021-02-09 01:28 | disposition home or self-care (01) ==
LOC: HO.MMNH1L 01:27
PROVIDERS: Visit Provider Family Medicine
DX: K76.9 Liver disease, unspecified (principal); I10 Essential (primary) hypertension; E11.9 Type 2 diabetes mellitus without complications
CPT/HCPCS: 36415; 80048; 85025

== ENCOUNTER 2021-02-16 00:50 | Outpatient (REF) | payer MEDICARE, SELFPAY ==
[2021-02-16 06:47] LABS: MANUAL DIFF FLAG NO
[2021-02-16 07:08] LABS: Basophils Percent Auto 0.5 % (0-2); Eosinophils Absolute Auto 0.2 X10*3/uL (0.0-0.4); Hematocrit 33.9 % (37.0-47.0); Hemoglobin 10.4 g/dl (12.0-16.0); Imm Gran Abs Auto 0.01 X10*3/uL (0.00-0.03); Imm Gran Pct Auto 0.3 % (0.0-0.4); Lymphocytes Absolute Auto 1.1 X10*3/uL (1.2-4.9); Lymphocytes Percent Auto 26.4 % (20-40); Mean Corpuscular HGB Conc 30.7 g/dl (31.0-35.0); Mean Corpuscular Hemoglobin 29.9 pg (27.0-33.0); Mean Corpuscular Volume 97.4 fL (80.0-98.0); Mean Platelet Volume 9.9 fL (9.4-12.3); Monocytes Absolute Auto 0.5 X10*3/uL (0.1-1.2); Monocytes Percent Auto 11.6 % (2-11); Neutrophils Absolute Auto 2.3 x10*3/uL (2.0-8.3); Neutrophils Percent Auto 57.2 % (45-73); Platelet Count 108 X10*3/uL (160-400); Red Blood Count 3.48 X10*6/uL (4.20-5.50); Red Cell Distribution Width 14.6 % (11.0-16.0)
[2021-02-16 07:44] LABS: Anion Gap 17 (12-20); Blood Urea Nitrogen 37 mg/dL (9-16); Calcium 9.4 mg/dL (8.4-10.2); Carbon Dioxide 30 mmol/L (22-29); Chloride 104 mmol/L (96-108); Estimated Glomerular Filt Rate 28; Glucose Random 96 mg/dL (60-115); Potassium 4.7 mmol/L (3.3-5.1); Sodium 146 mmol/L (135-145)
== END 2021-02-16 00:51 | disposition home or self-care (01) ==
LOC: HO.MMNH1L 00:50
PROVIDERS: Visit Provider Family Medicine
DX: I10 Essential (primary) hypertension (principal); E11.9 Type 2 diabetes mellitus without complications; K76.9 Liver disease, unspecified
CPT/HCPCS: 36415; 80048; 85025

== ENCOUNTER 2021-02-23 00:21 | Outpatient (REF) | payer MEDICARE, SELFPAY ==
[2021-02-23 06:43] LABS: MANUAL DIFF FLAG NO
[2021-02-23 07:15] LABS: Basophils Percent Auto 0.7 % (0-2); Eosinophils Absolute Auto 0.2 X10*3/uL (0.0-0.4); Eosinophils Percent Auto 4.7 % (0-4); Hematocrit 33.4 % (37.0-47.0); Hemoglobin 10.6 g/dl (12.0-16.0); Imm Gran Abs Auto 0.01 X10*3/uL (0.00-0.03); Imm Gran Pct Auto 0.2 % (0.0-0.4); Lymphocytes Absolute Auto 1.3 X10*3/uL (1.2-4.9); Lymphocytes Percent Auto 30.7 % (20-40); Mean Corpuscular HGB Conc 31.7 g/dl (31.0-35.0); Mean Corpuscular Hemoglobin 30.5 pg (27.0-33.0); Monocytes Absolute Auto 0.4 X10*3/uL (0.1-1.2); Neutrophils Absolute Auto 2.3 x10*3/uL (2.0-8.3); Neutrophils Percent Auto 54.7 % (45-73); Platelet Count 118 X10*3/uL (160-400); Red Blood Count 3.48 X10*6/uL (4.20-5.50); Red Cell Distribution Width 14.2 % (11.0-16.0); White Blood Count 4.2 X10*3/uL (4.8-10.8)
[2021-02-23 07:55] LABS: Anion Gap 14 (12-20); Blood Urea Nitrogen 29 mg/dL (9-16); Calcium 9.4 mg/dL (8.4-10.2); Carbon Dioxide 30 mmol/L (22-29); Chloride 104 mmol/L (96-108); Estimated Glomerular Filt Rate 33; Glucose Random 74 mg/dL (60-115); Potassium 4.8 mmol/L (3.3-5.1); Sodium 143 mmol/L (135-145)
== END 2021-02-23 00:22 | disposition home or self-care (01) ==
LOC: HO.MMNH1L 00:21
PROVIDERS: Visit Provider Family Medicine
DX: I10 Essential (primary) hypertension (principal); E11.9 Type 2 diabetes mellitus without complications; K76.9 Liver disease, unspecified
CPT/HCPCS: 36415; 80048; 85025

== ENCOUNTER 2021-03-02 00:47 | Outpatient (REF) | payer MEDICARE, SELFPAY ==
[2021-03-02 06:49] LABS: MANUAL DIFF FLAG NO
[2021-03-02 07:11] LABS: Basophils Percent Auto 0.4 % (0-2); Eosinophils Absolute Auto 0.1 X10*3/uL (0.0-0.4); Eosinophils Percent Auto 5.2 % (0-4); Hematocrit 31.3 % (37.0-47.0); Hemoglobin 9.8 g/dl (12.0-16.0); Lymphocytes Absolute Auto 0.8 X10*3/uL (1.2-4.9); Lymphocytes Percent Auto 30.7 % (20-40); Mean Corpuscular HGB Conc 31.3 g/dl (31.0-35.0); Mean Corpuscular Hemoglobin 30.3 pg (27.0-33.0); Mean Corpuscular Volume 96.9 fL (80.0-98.0); Mean Platelet Volume 9.5 fL (9.4-12.3); Monocytes Absolute Auto 0.5 X10*3/uL (0.1-1.2); Monocytes Percent Auto 17.9 % (2-11); Neutrophils Absolute Auto 1.2 x10*3/uL (2.0-8.3); Neutrophils Percent Auto 45.8 % (45-73); Platelet Count 105 X10*3/uL (160-400); Red Blood Count 3.23 X10*6/uL (4.20-5.50); Red Cell Distribution Width 14.6 % (11.0-16.0)
[2021-03-02 07:30] LABS: Anion Gap 12 (12-20); Blood Urea Nitrogen 33 mg/dL (9-16); Calcium 9.2 mg/dL (8.4-10.2); Carbon Dioxide 31 mmol/L (22-29); Chloride 103 mmol/L (96-108); Estimated Glomerular Filt Rate 33; Glucose Random 170 mg/dL (60-115); Potassium 4.1 mmol/L (3.3-5.1); Sodium 142 mmol/L (135-145)
[2021-03-02 07:35] LABS: White Blood Count 2.5 X10*3/uL (4.8-10.8)
== END 2021-03-02 00:48 | disposition home or self-care (01) ==
LOC: HO.MMNH1L 00:47
PROVIDERS: Visit Provider Family Medicine
DX: K76.9 Liver disease, unspecified (principal); I10 Essential (primary) hypertension; E11.9 Type 2 diabetes mellitus without complications
CPT/HCPCS: 36415; 80048; 85025

== ENCOUNTER 2021-03-09 | Outpatient (REF) | payer MEDICARE, SELFPAY ==
[2021-03-09 07:44] LABS: MANUAL DIFF FLAG NO
[2021-03-09 07:49] LABS: Basophils Percent Auto 0.6 % (0-2); Eosinophils Absolute Auto 0.2 X10*3/uL (0.0-0.4); Eosinophils Percent Auto 6.1 % (0-4); Hematocrit 32.6 % (37.0-47.0); Hemoglobin 10.1 g/dl (12.0-16.0); Imm Gran Abs Auto 0.01 X10*3/uL (0.00-0.03); Imm Gran Pct Auto 0.3 % (0.0-0.4); Lymphocytes Absolute Auto 1.1 X10*3/uL (1.2-4.9); Lymphocytes Percent Auto 33.4 % (20-40); Mean Corpuscular Hemoglobin 29.8 pg (27.0-33.0); Mean Corpuscular Volume 96.2 fL (80.0-98.0); Mean Platelet Volume 10.1 fL (9.4-12.3); Monocytes Absolute Auto 0.3 X10*3/uL (0.1-1.2); Monocytes Percent Auto 9.5 % (2-11); Neutrophils Absolute Auto 1.6 x10*3/uL (2.0-8.3); Neutrophils Percent Auto 50.1 % (45-73); Platelet Count 114 X10*3/uL (160-400); Red Blood Count 3.39 X10*6/uL (4.20-5.50); Red Cell Distribution Width 14.3 % (11.0-16.0); White Blood Count 3.3 X10*3/uL (4.8-10.8)
[2021-03-09 08:12] LABS: Anion Gap 13 (12-20); Blood Urea Nitrogen 29 mg/dL (9-16); Calcium 9.4 mg/dL (8.4-10.2); Carbon Dioxide 31 mmol/L (22-29); Chloride 104 mmol/L (96-108); Estimated Glomerular Filt Rate 41; Glucose Random 163 mg/dL (60-115); Potassium 3.9 mmol/L (3.3-5.1); Sodium 144 mmol/L (135-145)
== END 2021-03-09 00:01 | disposition home or self-care (01) ==
LOC: HO.MMNH1L
PROVIDERS: Visit Provider Family Medicine
DX: K76.9 Liver disease, unspecified (principal); E11.9 Type 2 diabetes mellitus without complications; I10 Essential (primary) hypertension
CPT/HCPCS: 36415; 80048; 85025

== ENCOUNTER 2021-03-16 01:02 | Outpatient (REF) | payer MEDICARE, SELFPAY ==
[2021-03-16 06:45] LABS: MANUAL DIFF FLAG NO
[2021-03-16 06:59] LABS: Basophils Percent Auto 0.6 % (0-2); Eosinophils Absolute Auto 0.2 X10*3/uL (0.0-0.4); Eosinophils Percent Auto 4.7 % (0-4); Hematocrit 31.8 % (37.0-47.0); Hemoglobin 10.3 g/dl (12.0-16.0); Imm Gran Abs Auto 0.01 X10*3/uL (0.00-0.03); Imm Gran Pct Auto 0.2 % (0.0-0.4); Lymphocytes Absolute Auto 1.5 X10*3/uL (1.2-4.9); Lymphocytes Percent Auto 28.6 % (20-40); Mean Corpuscular HGB Conc 32.4 g/dl (31.0-35.0); Mean Corpuscular Hemoglobin 31.1 pg (27.0-33.0); Mean Corpuscular Volume 96.1 fL (80.0-98.0); Monocytes Absolute Auto 0.5 X10*3/uL (0.1-1.2); Monocytes Percent Auto 9.7 % (2-11); Neutrophils Absolute Auto 2.9 x10*3/uL (2.0-8.3); Neutrophils Percent Auto 56.2 % (45-73); Platelet Count 125 X10*3/uL (160-400); Red Blood Count 3.31 X10*6/uL (4.20-5.50); Red Cell Distribution Width 14.3 % (11.0-16.0); White Blood Count 5.1 X10*3/uL (4.8-10.8)
[2021-03-16 07:25] LABS: Anion Gap 13 (12-20); Blood Urea Nitrogen 28 mg/dL (9-16); Calcium 9.4 mg/dL (8.4-10.2); Carbon Dioxide 33 mmol/L (22-29); Chloride 100 mmol/L (96-108); Estimated Glomerular Filt Rate 33; Glucose Random 142 mg/dL (60-115); Potassium 4.2 mmol/L (3.3-5.1); Sodium 142 mmol/L (135-145)
== END 2021-03-16 01:03 | disposition home or self-care (01) ==
LOC: HO.MMNH1L 01:02
PROVIDERS: Visit Provider Family Medicine
DX: K76.9 Liver disease, unspecified (principal); I10 Essential (primary) hypertension; E11.9 Type 2 diabetes mellitus without complications
CPT/HCPCS: 36415; 80048; 85025

== ENCOUNTER 2021-03-23 00:40 | Outpatient (REF) | payer MEDICARE, SELFPAY ==
[2021-03-23 07:07] LABS: MANUAL DIFF FLAG NO
[2021-03-23 08:00] LABS: Basophils Percent Auto 0.4 % (0-2); Eosinophils Absolute Auto 0.2 X10*3/uL (0.0-0.4); Eosinophils Percent Auto 4.2 % (0-4); Hematocrit 31.3 % (37.0-47.0); Imm Gran Abs Auto 0.02 X10*3/uL (0.00-0.03); Imm Gran Pct Auto 0.4 % (0.0-0.4); Lymphocytes Absolute Auto 1.5 X10*3/uL (1.2-4.9); Mean Corpuscular HGB Conc 31.9 g/dl (31.0-35.0); Mean Corpuscular Hemoglobin 30.4 pg (27.0-33.0); Mean Corpuscular Volume 95.1 fL (80.0-98.0); Monocytes Absolute Auto 0.5 X10*3/uL (0.1-1.2); Monocytes Percent Auto 9.8 % (2-11); Neutrophils Absolute Auto 3.2 x10*3/uL (2.0-8.3); Neutrophils Percent Auto 58.2 % (45-73); Platelet Count 126 X10*3/uL (160-400); Red Blood Count 3.29 X10*6/uL (4.20-5.50); Red Cell Distribution Width 14.6 % (11.0-16.0); White Blood Count 5.5 X10*3/uL (4.8-10.8)
[2021-03-23 08:22] LABS: Anion Gap 12 (12-20); Blood Urea Nitrogen 34 mg/dL (9-16); Calcium 9.3 mg/dL (8.4-10.2); Carbon Dioxide 31 mmol/L (22-29); Chloride 102 mmol/L (96-108); Estimated Glomerular Filt Rate 34; Glucose Random 80 mg/dL (60-115); Potassium 4.4 mmol/L (3.3-5.1); Sodium 141 mmol/L (135-145)
== END 2021-03-23 00:41 | disposition home or self-care (01) ==
LOC: HO.MMNH1L 00:40
PROVIDERS: Visit Provider Family Medicine
DX: K76.9 Liver disease, unspecified (principal); I10 Essential (primary) hypertension; E11.9 Type 2 diabetes mellitus without complications
CPT/HCPCS: 36415; 80048; 85025

== ENCOUNTER 2021-03-30 | Outpatient (REF) | payer MEDICARE, SELFPAY ==
[2021-03-30 07:23] LABS: MANUAL DIFF FLAG NO
[2021-03-30 07:33] LABS: Basophils Percent Auto 0.7 % (0-2); Eosinophils Absolute Auto 0.3 X10*3/uL (0.0-0.4); Eosinophils Percent Auto 6.2 % (0-4); Hematocrit 31.6 % (37.0-47.0); Hemoglobin 10.2 g/dl (12.0-16.0); Imm Gran Abs Auto 0.01 X10*3/uL (0.00-0.03); Imm Gran Pct Auto 0.2 % (0.0-0.4); Lymphocytes Absolute Auto 1.1 X10*3/uL (1.2-4.9); Lymphocytes Percent Auto 26.7 % (20-40); Mean Corpuscular HGB Conc 32.3 g/dl (31.0-35.0); Mean Platelet Volume 9.9 fL (9.4-12.3); Monocytes Absolute Auto 0.4 X10*3/uL (0.1-1.2); Monocytes Percent Auto 9.1 % (2-11); Neutrophils Absolute Auto 2.3 x10*3/uL (2.0-8.3); Neutrophils Percent Auto 57.1 % (45-73); Platelet Count 118 X10*3/uL (160-400); Red Blood Count 3.29 X10*6/uL (4.20-5.50); Red Cell Distribution Width 14.7 % (11.0-16.0); White Blood Count 4.1 X10*3/uL (4.8-10.8)
[2021-03-30 08:31] LABS: Anion Gap 14 (12-20); Blood Urea Nitrogen 44 mg/dL (9-16); Calcium 9.3 mg/dL (8.4-10.2); Carbon Dioxide 31 mmol/L (22-29); Chloride 103 mmol/L (96-108); Estimated Glomerular Filt Rate 27; Glucose Random 107 mg/dL (60-115); Potassium 4.8 mmol/L (3.3-5.1); Sodium 143 mmol/L (135-145)
== END 2021-03-30 00:01 | disposition home or self-care (01) ==
LOC: HO.MMNH1L
PROVIDERS: Visit Provider Family Medicine
DX: E11.9 Type 2 diabetes mellitus without complications (principal); I10 Essential (primary) hypertension; K76.9 Liver disease, unspecified
CPT/HCPCS: 36415; 80048; 85025

== ENCOUNTER 2021-04-06 | Outpatient (REF) | payer MEDICARE, SELFPAY ==
[2021-04-06 07:30] LABS: MANUAL DIFF FLAG NO
[2021-04-06 07:37] LABS: Basophils Percent Auto 0.3 % (0-2); Eosinophils Absolute Auto 0.2 X10*3/uL (0.0-0.4); Hematocrit 30.8 % (37.0-47.0); Hemoglobin 9.6 g/dl (12.0-16.0); Lymphocytes Absolute Auto 0.7 X10*3/uL (1.2-4.9); Lymphocytes Percent Auto 20.5 % (20-40); Mean Corpuscular HGB Conc 31.2 g/dl (31.0-35.0); Mean Corpuscular Hemoglobin 30.3 pg (27.0-33.0); Mean Corpuscular Volume 97.2 fL (80.0-98.0); Mean Platelet Volume 9.7 fL (9.4-12.3); Monocytes Absolute Auto 0.6 X10*3/uL (0.1-1.2); Monocytes Percent Auto 17.9 % (2-11); Neutrophils Absolute Auto 1.9 x10*3/uL (2.0-8.3); Neutrophils Percent Auto 54.3 % (45-73); Platelet Count 104 X10*3/uL (160-400); Red Blood Count 3.17 X10*6/uL (4.20-5.50); Red Cell Distribution Width 14.8 % (11.0-16.0); White Blood Count 3.4 X10*3/uL (4.8-10.8)
[2021-04-06 08:08] LABS: Anion Gap 14 (12-20); Blood Urea Nitrogen 36 mg/dL (9-16); Calcium 9.2 mg/dL (8.4-10.2); Carbon Dioxide 31 mmol/L (22-29); Chloride 104 mmol/L (96-108); Estimated Glomerular Filt Rate 31; Glucose Random 97 mg/dL (60-115); Potassium 4.5 mmol/L (3.3-5.1); Sodium 144 mmol/L (135-145)
== END 2021-04-06 00:01 | disposition home or self-care (01) ==
LOC: HO.MMNH1L
PROVIDERS: Visit Provider Family Medicine
DX: K76.9 Liver disease, unspecified (principal); E11.9 Type 2 diabetes mellitus without complications; I10 Essential (primary) hypertension
CPT/HCPCS: 36415; 80048; 85025

== ENCOUNTER 2021-04-13 | Outpatient (REF) | payer MEDICARE, SELFPAY ==
[2021-04-13 06:34] LABS: MANUAL DIFF FLAG NO
[2021-04-13 07:08] LABS: Basophils Percent Auto 0.5 % (0-2); Eosinophils Absolute Auto 0.2 X10*3/uL (0.0-0.4); Eosinophils Percent Auto 5.6 % (0-4); Hematocrit 31.3 % (37.0-47.0); Imm Gran Abs Auto 0.01 X10*3/uL (0.00-0.03); Imm Gran Pct Auto 0.3 % (0.0-0.4); Lymphocytes Absolute Auto 1.4 X10*3/uL (1.2-4.9); Lymphocytes Percent Auto 36.8 % (20-40); Mean Corpuscular HGB Conc 31.9 g/dl (31.0-35.0); Mean Corpuscular Volume 96.9 fL (80.0-98.0); Mean Platelet Volume 9.6 fL (9.4-12.3); Monocytes Absolute Auto 0.3 X10*3/uL (0.1-1.2); Monocytes Percent Auto 8.5 % (2-11); Neutrophils Absolute Auto 1.8 x10*3/uL (2.0-8.3); Neutrophils Percent Auto 48.3 % (45-73); Platelet Count 125 X10*3/uL (160-400); Red Blood Count 3.23 X10*6/uL (4.20-5.50); Red Cell Distribution Width 14.5 % (11.0-16.0); White Blood Count 3.8 X10*3/uL (4.8-10.8)
[2021-04-13 07:26] LABS: Anion Gap 16 (12-20); Blood Urea Nitrogen 31 mg/dL (9-16); Carbon Dioxide 30 mmol/L (22-29); Chloride 101 mmol/L (96-108); Estimated Glomerular Filt Rate 35; Glucose Random 85 mg/dL (60-115); Potassium 4.6 mmol/L (3.3-5.1); Sodium 142 mmol/L (135-145)
== END 2021-04-13 00:01 | disposition home or self-care (01) ==
LOC: HO.MMNH1L
PROVIDERS: Visit Provider Family Medicine
DX: K76.9 Liver disease, unspecified (principal); E11.9 Type 2 diabetes mellitus without complications; I10 Essential (primary) hypertension
CPT/HCPCS: 36415; 80048; 85025

== ENCOUNTER 2021-04-20 05:35 | Outpatient (REF) | payer MEDICARE, SELFPAY ==
[2021-04-20 07:03] LABS: MANUAL DIFF FLAG NO
[2021-04-20 07:15] LABS: Basophils Percent Auto 0.7 % (0-2); Eosinophils Absolute Auto 0.2 X10*3/uL (0.0-0.4); Eosinophils Percent Auto 4.5 % (0-4); Hemoglobin 9.9 g/dl (12.0-16.0); Imm Gran Abs Auto 0.01 X10*3/uL (0.00-0.03); Imm Gran Pct Auto 0.2 % (0.0-0.4); Lymphocytes Absolute Auto 1.3 X10*3/uL (1.2-4.9); Lymphocytes Percent Auto 28.8 % (20-40); Mean Corpuscular HGB Conc 30.9 g/dl (31.0-35.0); Mean Corpuscular Hemoglobin 30.7 pg (27.0-33.0); Mean Corpuscular Volume 99.1 fL (80.0-98.0); Mean Platelet Volume 9.8 fL (9.4-12.3); Monocytes Absolute Auto 0.5 X10*3/uL (0.1-1.2); Monocytes Percent Auto 11.1 % (2-11); Neutrophils Absolute Auto 2.4 x10*3/uL (2.0-8.3); Neutrophils Percent Auto 54.7 % (45-73); Platelet Count 123 X10*3/uL (160-400); Red Blood Count 3.23 X10*6/uL (4.20-5.50); Red Cell Distribution Width 14.9 % (11.0-16.0); White Blood Count 4.4 X10*3/uL (4.8-10.8)
[2021-04-20 07:35] LABS: Anion Gap 14 (12-20); Blood Urea Nitrogen 33 mg/dL (9-16); Calcium 9.7 mg/dL (8.4-10.2); Carbon Dioxide 34 mmol/L (22-29); Chloride 102 mmol/L (96-108); Estimated Glomerular Filt Rate 29; Glucose Random 131 mg/dL (60-115); Sodium 145 mmol/L (135-145)
== END 2021-04-20 05:36 | disposition home or self-care (01) ==
LOC: HO.MMNH1L 05:35
PROVIDERS: Visit Provider Family Medicine
DX: K76.9 Liver disease, unspecified (principal); I10 Essential (primary) hypertension; E11.9 Type 2 diabetes mellitus without complications
CPT/HCPCS: 36415; 80048; 85025

== ENCOUNTER 2021-04-27 21:31 | Outpatient (REF) | payer MEDICARE, SELFPAY ==
[2021-04-27 06:20] LABS: MANUAL DIFF FLAG NO
[2021-04-27 07:03] LABS: Basophils Percent Auto 0.5 % (0-2); Eosinophils Absolute Auto 0.2 X10*3/uL (0.0-0.4); Eosinophils Percent Auto 4.4 % (0-4); Hematocrit 29.7 % (37.0-47.0); Hemoglobin 9.4 g/dl (12.0-16.0); Imm Gran Abs Auto 0.01 X10*3/uL (0.00-0.03); Imm Gran Pct Auto 0.3 % (0.0-0.4); Lymphocytes Absolute Auto 1.2 X10*3/uL (1.2-4.9); Lymphocytes Percent Auto 31.3 % (20-40); Mean Corpuscular HGB Conc 31.6 g/dl (31.0-35.0); Mean Corpuscular Hemoglobin 30.7 pg (27.0-33.0); Mean Corpuscular Volume 97.1 fL (80.0-98.0); Mean Platelet Volume 10.2 fL (9.4-12.3); Monocytes Absolute Auto 0.4 X10*3/uL (0.1-1.2); Neutrophils Absolute Auto 2.1 x10*3/uL (2.0-8.3); Neutrophils Percent Auto 54.5 % (45-73); Platelet Count 116 X10*3/uL (160-400); Red Blood Count 3.06 X10*6/uL (4.20-5.50); Red Cell Distribution Width 14.6 % (11.0-16.0); White Blood Count 3.9 X10*3/uL (4.8-10.8)
[2021-04-27 07:24] LABS: Anion Gap 13 (12-20); Blood Urea Nitrogen 29 mg/dL (9-16); Calcium 9.4 mg/dL (8.4-10.2); Carbon Dioxide 31 mmol/L (22-29); Chloride 101 mmol/L (96-108); Estimated Glomerular Filt Rate 36; Glucose Random 66 mg/dL (60-115); Potassium 4.8 mmol/L (3.3-5.1); Sodium 140 mmol/L (135-145)
== END 2021-04-27 21:32 | disposition home or self-care (01) ==
LOC: HO.MMNH1L 21:31
PROVIDERS: Visit Provider Family Medicine
DX: K76.9 Liver disease, unspecified (principal); I10 Essential (primary) hypertension; E11.9 Type 2 diabetes mellitus without complications
CPT/HCPCS: 36415; 80048; 85025

== ENCOUNTER 2021-05-04 00:34 | Outpatient (REF) | payer MEDICARE, SELFPAY ==
[2021-05-04 06:46] LABS: MANUAL DIFF FLAG NO
[2021-05-04 06:56] LABS: Basophils Percent Auto 0.7 % (0-2); Eosinophils Absolute Auto 0.1 X10*3/uL (0.0-0.4); Eosinophils Percent Auto 1.8 % (0-4); Hematocrit 31.1 % (37.0-47.0); Hemoglobin 9.9 g/dl (12.0-16.0); Imm Gran Abs Auto 0.01 X10*3/uL (0.00-0.03); Imm Gran Pct Auto 0.2 % (0.0-0.4); Lymphocytes Absolute Auto 0.9 X10*3/uL (1.2-4.9); Lymphocytes Percent Auto 20.1 % (20-40); Mean Corpuscular HGB Conc 31.8 g/dl (31.0-35.0); Mean Corpuscular Hemoglobin 30.8 pg (27.0-33.0); Mean Corpuscular Volume 96.9 fL (80.0-98.0); Mean Platelet Volume 9.8 fL (9.4-12.3); Monocytes Absolute Auto 0.4 X10*3/uL (0.1-1.2); Neutrophils Percent Auto 68.2 % (45-73); Platelet Count 123 X10*3/uL (160-400); Red Blood Count 3.21 X10*6/uL (4.20-5.50); Red Cell Distribution Width 14.7 % (11.0-16.0); White Blood Count 4.4 X10*3/uL (4.8-10.8)
[2021-05-04 07:17] LABS: Anion Gap 12 (12-20); Blood Urea Nitrogen 36 mg/dL (9-16); Carbon Dioxide 30 mmol/L (22-29); Chloride 104 mmol/L (96-108); Estimated Glomerular Filt Rate 45; Glucose Random 192 mg/dL (60-115); Potassium 5.1 mmol/L (3.3-5.1); Sodium 141 mmol/L (135-145)
== END 2021-05-04 00:35 | disposition home or self-care (01) ==
LOC: HO.MMNH1L 00:34
PROVIDERS: Visit Provider Family Medicine
DX: K76.9 Liver disease, unspecified (principal); I10 Essential (primary) hypertension; E11.9 Type 2 diabetes mellitus without complications
CPT/HCPCS: 36415; 80048; 85025

== ENCOUNTER 2021-05-11 00:21 | Outpatient (REF) | payer MEDICARE, SELFPAY ==
[2021-05-11 07:16] LABS: MANUAL DIFF FLAG NO
[2021-05-11 07:23] LABS: Basophils Percent Auto 0.4 % (0-2); Eosinophils Absolute Auto 0.1 X10*3/uL (0.0-0.4); Eosinophils Percent Auto 1.4 % (0-4); Hematocrit 32.8 % (37.0-47.0); Hemoglobin 10.3 g/dl (12.0-16.0); Imm Gran Abs Auto 0.02 X10*3/uL (0.00-0.03); Imm Gran Pct Auto 0.4 % (0.0-0.4); Lymphocytes Absolute Auto 1.1 X10*3/uL (1.2-4.9); Lymphocytes Percent Auto 20.1 % (20-40); Mean Corpuscular HGB Conc 31.4 g/dl (31.0-35.0); Mean Corpuscular Hemoglobin 31.2 pg (27.0-33.0); Mean Corpuscular Volume 99.4 fL (80.0-98.0); Mean Platelet Volume 9.4 fL (9.4-12.3); Monocytes Absolute Auto 0.5 X10*3/uL (0.1-1.2); Monocytes Percent Auto 8.9 % (2-11); Neutrophils Absolute Auto 3.9 x10*3/uL (2.0-8.3); Neutrophils Percent Auto 68.8 % (45-73); Platelet Count 125 X10*3/uL (160-400); White Blood Count 5.6 X10*3/uL (4.8-10.8)
[2021-05-11 07:46] LABS: Anion Gap 13 (12-20); Blood Urea Nitrogen 38 mg/dL (9-16); Calcium 9.3 mg/dL (8.4-10.2); Carbon Dioxide 29 mmol/L (22-29); Chloride 103 mmol/L (96-108); Estimated Glomerular Filt Rate 37; Glucose Random 104 mg/dL (60-115); Potassium 5.4 mmol/L (3.3-5.1); Sodium 140 mmol/L (135-145)
== END 2021-05-11 00:22 | disposition home or self-care (01) ==
LOC: HO.MMNH1L 00:21
PROVIDERS: Visit Provider Family Medicine
DX: I10 Essential (primary) hypertension (principal); E11.9 Type 2 diabetes mellitus without complications; K76.9 Liver disease, unspecified
CPT/HCPCS: 36415; 80048; 85025

== ENCOUNTER 2021-05-18 00:31 | Outpatient (REF) | payer MEDICARE, SELFPAY ==
[2021-05-18 06:42] LABS: MANUAL DIFF FLAG NO
[2021-05-18 07:04] LABS: Basophils Percent Auto 0.5 % (0-2); Eosinophils Absolute Auto 0.1 X10*3/uL (0.0-0.4); Eosinophils Percent Auto 2.5 % (0-4); Hematocrit 32.1 % (37.0-47.0); Hemoglobin 10.1 g/dl (12.0-16.0); Imm Gran Abs Auto 0.01 X10*3/uL (0.00-0.03); Imm Gran Pct Auto 0.2 % (0.0-0.4); Lymphocytes Absolute Auto 0.9 X10*3/uL (1.2-4.9); Lymphocytes Percent Auto 19.9 % (20-40); Mean Corpuscular HGB Conc 31.5 g/dl (31.0-35.0); Mean Corpuscular Hemoglobin 31.3 pg (27.0-33.0); Mean Corpuscular Volume 99.4 fL (80.0-98.0); Mean Platelet Volume 9.6 fL (9.4-12.3); Monocytes Absolute Auto 0.3 X10*3/uL (0.1-1.2); Monocytes Percent Auto 7.1 % (2-11); Neutrophils Absolute Auto 3.1 x10*3/uL (2.0-8.3); Neutrophils Percent Auto 69.8 % (45-73); Platelet Count 118 X10*3/uL (160-400); Red Blood Count 3.23 X10*6/uL (4.20-5.50); Red Cell Distribution Width 14.5 % (11.0-16.0); White Blood Count 4.4 X10*3/uL (4.8-10.8)
[2021-05-18 07:23] LABS: Anion Gap 14 (12-20); Blood Urea Nitrogen 38 mg/dL (9-16); Calcium 9.1 mg/dL (8.4-10.2); Carbon Dioxide 29 mmol/L (22-29); Chloride 103 mmol/L (96-108); Estimated Glomerular Filt Rate 39; Glucose Random 224 mg/dL (60-115); Potassium 4.9 mmol/L (3.3-5.1); Sodium 141 mmol/L (135-145)
== END 2021-05-18 00:32 | disposition home or self-care (01) ==
LOC: HO.MMNH1L 00:31
PROVIDERS: Visit Provider Family Medicine
DX: K76.9 Liver disease, unspecified (principal); I10 Essential (primary) hypertension; E11.9 Type 2 diabetes mellitus without complications
CPT/HCPCS: 36415; 80048; 85025

== ENCOUNTER 2021-05-25 | Outpatient (REF) | payer OTHER, SELFPAY ==
[2021-05-25 06:42] LABS: MANUAL DIFF FLAG NO
[2021-05-25 06:51] LABS: Basophils Percent Auto 0.5 % (0-2); Eosinophils Absolute Auto 0.1 X10*3/uL (0.0-0.4); Eosinophils Percent Auto 2.8 % (0-4); Hematocrit 31.8 % (37.0-47.0); Hemoglobin 9.9 g/dl (12.0-16.0); Imm Gran Abs Auto 0.01 X10*3/uL (0.00-0.03); Imm Gran Pct Auto 0.2 % (0.0-0.4); Lymphocytes Percent Auto 24.2 % (20-40); Mean Corpuscular HGB Conc 31.1 g/dl (31.0-35.0); Mean Corpuscular Hemoglobin 31.1 pg (27.0-33.0); Monocytes Absolute Auto 0.4 X10*3/uL (0.1-1.2); Monocytes Percent Auto 9.2 % (2-11); Neutrophils Absolute Auto 2.7 x10*3/uL (2.0-8.3); Neutrophils Percent Auto 63.1 % (45-73); Platelet Count 106 X10*3/uL (160-400); Red Blood Count 3.18 X10*6/uL (4.20-5.50); Red Cell Distribution Width 14.5 % (11.0-16.0); White Blood Count 4.3 X10*3/uL (4.8-10.8)
[2021-05-25 07:21] LABS: Anion Gap 12 (12-20); Blood Urea Nitrogen 35 mg/dL (9-16); Calcium 9.1 mg/dL (8.4-10.2); Carbon Dioxide 31 mmol/L (22-29); Chloride 103 mmol/L (96-108); Estimated Glomerular Filt Rate 40; Glucose Random 124 mg/dL (60-115); Potassium 4.5 mmol/L (3.3-5.1); Sodium 141 mmol/L (135-145)
== END 2021-05-25 00:01 ==
LOC: HO.MMNH1L
PROVIDERS: Visit Provider Family Medicine
DX: K76.9 Liver disease, unspecified (principal); I10 Essential (primary) hypertension; E11.9 Type 2 diabetes mellitus without complications
CPT/HCPCS: 36415; 80048; 85025

== ENCOUNTER 2021-06-01 | Outpatient (REF) | payer OTHER, SELFPAY ==
[2021-06-01 06:41] LABS: MANUAL DIFF FLAG NO
[2021-06-01 06:44] LABS: Basophils Percent Auto 0.5 % (0-2); Eosinophils Absolute Auto 0.1 X10*3/uL (0.0-0.4); Eosinophils Percent Auto 2.1 % (0-4); Hematocrit 32.4 % (37.0-47.0); Hemoglobin 10.3 g/dl (12.0-16.0); Imm Gran Abs Auto 0.01 X10*3/uL (0.00-0.03); Imm Gran Pct Auto 0.2 % (0.0-0.4); Lymphocytes Absolute Auto 1.2 X10*3/uL (1.2-4.9); Lymphocytes Percent Auto 27.1 % (20-40); Mean Corpuscular HGB Conc 31.8 g/dl (31.0-35.0); Mean Corpuscular Hemoglobin 31.4 pg (27.0-33.0); Mean Corpuscular Volume 98.8 fL (80.0-98.0); Mean Platelet Volume 9.9 fL (9.4-12.3); Monocytes Absolute Auto 0.4 X10*3/uL (0.1-1.2); Monocytes Percent Auto 9.1 % (2-11); Neutrophils Absolute Auto 2.6 x10*3/uL (2.0-8.3); Platelet Count 110 X10*3/uL (160-400); Red Blood Count 3.28 X10*6/uL (4.20-5.50); Red Cell Distribution Width 14.3 % (11.0-16.0); White Blood Count 4.3 X10*3/uL (4.8-10.8)
[2021-06-01 07:20] LABS: Anion Gap 13 (12-20); Blood Urea Nitrogen 34 mg/dL (9-16); Calcium 9.3 mg/dL (8.4-10.2); Carbon Dioxide 29 mmol/L (22-29); Chloride 101 mmol/L (96-108); Estimated Glomerular Filt Rate 34; Glucose Random 133 mg/dL (60-115); Sodium 138 mmol/L (135-145)
== END 2021-06-01 00:01 | disposition home or self-care (01) ==
LOC: HO.MMNH1L
PROVIDERS: Visit Provider Family Medicine
DX: I10 Essential (primary) hypertension (principal); E11.9 Type 2 diabetes mellitus without complications
CPT/HCPCS: 36415; 80048; 85025

== ENCOUNTER 2021-06-08 | Outpatient (REF) | payer OTHER, SELFPAY ==
[2021-06-08 06:57] LABS: MANUAL DIFF FLAG NO
[2021-06-08 07:08] LABS: Basophils Percent Auto 0.5 % (0-2); Eosinophils Absolute Auto 0.1 X10*3/uL (0.0-0.4); Eosinophils Percent Auto 1.8 % (0-4); Hematocrit 32.1 % (37.0-47.0); Hemoglobin 10.1 g/dl (12.0-16.0); Imm Gran Abs Auto 0.02 X10*3/uL (0.00-0.03); Imm Gran Pct Auto 0.4 % (0.0-0.4); Lymphocytes Absolute Auto 1.2 X10*3/uL (1.2-4.9); Lymphocytes Percent Auto 20.5 % (20-40); Mean Corpuscular HGB Conc 31.5 g/dl (31.0-35.0); Mean Corpuscular Hemoglobin 31.2 pg (27.0-33.0); Mean Corpuscular Volume 99.1 fL (80.0-98.0); Mean Platelet Volume 9.6 fL (9.4-12.3); Monocytes Absolute Auto 0.6 X10*3/uL (0.1-1.2); Monocytes Percent Auto 9.8 % (2-11); Neutrophils Absolute Auto 3.8 x10*3/uL (2.0-8.3); Platelet Count 119 X10*3/uL (160-400); Red Blood Count 3.24 X10*6/uL (4.20-5.50); Red Cell Distribution Width 14.1 % (11.0-16.0); White Blood Count 5.7 X10*3/uL (4.8-10.8)
[2021-06-08 08:07] LABS: Anion Gap 13 (12-20); Blood Urea Nitrogen 42 mg/dL (9-16); Calcium 9.4 mg/dL (8.4-10.2); Carbon Dioxide 32 mmol/L (22-29); Chloride 102 mmol/L (96-108); Estimated Glomerular Filt Rate 31; Glucose Random 102 mg/dL (60-115); Potassium 5.1 mmol/L (3.3-5.1); Sodium 142 mmol/L (135-145)
== END 2021-06-08 00:01 | disposition home or self-care (01) ==
LOC: HO.MMNH1L
PROVIDERS: Visit Provider Family Medicine
DX: I10 Essential (primary) hypertension (principal); E11.9 Type 2 diabetes mellitus without complications; K76.9 Liver disease, unspecified
CPT/HCPCS: 36415; 80048; 85025

== ENCOUNTER 2021-06-15 | Outpatient (REF) | payer OTHER, SELFPAY ==
[2021-06-15 07:09] LABS: MANUAL DIFF FLAG NO
[2021-06-15 07:29] LABS: Basophils Percent Auto 0.4 % (0-2); Eosinophils Absolute Auto 0.1 X10*3/uL (0.0-0.4); Eosinophils Percent Auto 2.6 % (0-4); Hematocrit 32.6 % (37.0-47.0); Hemoglobin 10.4 g/dl (12.0-16.0); Imm Gran Abs Auto 0.01 X10*3/uL (0.00-0.03); Imm Gran Pct Auto 0.2 % (0.0-0.4); Lymphocytes Absolute Auto 1.1 X10*3/uL (1.2-4.9); Lymphocytes Percent Auto 24.4 % (20-40); Mean Corpuscular HGB Conc 31.9 g/dl (31.0-35.0); Mean Corpuscular Hemoglobin 31.3 pg (27.0-33.0); Mean Corpuscular Volume 98.2 fL (80.0-98.0); Mean Platelet Volume 9.7 fL (9.4-12.3); Monocytes Absolute Auto 0.5 X10*3/uL (0.1-1.2); Monocytes Percent Auto 11.6 % (2-11); Neutrophils Absolute Auto 2.8 x10*3/uL (2.0-8.3); Neutrophils Percent Auto 60.8 % (45-73); Platelet Count 117 X10*3/uL (160-400); Red Blood Count 3.32 X10*6/uL (4.20-5.50); Red Cell Distribution Width 14.2 % (11.0-16.0); White Blood Count 4.6 X10*3/uL (4.8-10.8)
[2021-06-15 07:35] LABS: Anion Gap 9 (12-20); Blood Urea Nitrogen 34 mg/dL (9-16); Calcium 9.2 mg/dL (8.4-10.2); Carbon Dioxide 34 mmol/L (22-29); Chloride 103 mmol/L (96-108); Estimated Glomerular Filt Rate 42; Glucose Random 101 mg/dL (60-115); Potassium 5.1 mmol/L (3.3-5.1); Sodium 141 mmol/L (135-145)
== END 2021-06-15 00:01 | disposition home or self-care (01) ==
LOC: HO.MMNH1L
PROVIDERS: Visit Provider Family Medicine
DX: I10 Essential (primary) hypertension (principal); E11.9 Type 2 diabetes mellitus without complications; K76.9 Liver disease, unspecified
CPT/HCPCS: 36415; 80048; 85025

== ENCOUNTER 2021-06-22 | Outpatient (REF) | payer OTHER, SELFPAY ==
[2021-06-22 06:35] LABS: MANUAL DIFF FLAG NO
[2021-06-22 07:05] LABS: Basophils Percent Auto 0.5 % (0-2); Eosinophils Absolute Auto 0.1 X10*3/uL (0.0-0.4); Eosinophils Percent Auto 2.3 % (0-4); Hematocrit 34.3 % (37.0-47.0); Hemoglobin 10.8 g/dl (12.0-16.0); Imm Gran Abs Auto 0.01 X10*3/uL (0.00-0.03); Imm Gran Pct Auto 0.2 % (0.0-0.4); Lymphocytes Absolute Auto 1.1 X10*3/uL (1.2-4.9); Lymphocytes Percent Auto 25.3 % (20-40); Mean Corpuscular HGB Conc 31.5 g/dl (31.0-35.0); Mean Corpuscular Hemoglobin 31.1 pg (27.0-33.0); Mean Corpuscular Volume 98.8 fL (80.0-98.0); Mean Platelet Volume 9.8 fL (9.4-12.3); Monocytes Absolute Auto 0.4 X10*3/uL (0.1-1.2); Monocytes Percent Auto 8.7 % (2-11); Neutrophils Absolute Auto 2.8 x10*3/uL (2.0-8.3); Platelet Count 130 X10*3/uL (160-400); Red Blood Count 3.47 X10*6/uL (4.20-5.50); White Blood Count 4.4 X10*3/uL (4.8-10.8)
[2021-06-22 07:10] LABS: Anion Gap 16 (12-20); Blood Urea Nitrogen 33 mg/dL (9-16); Calcium 9.3 mg/dL (8.4-10.2); Carbon Dioxide 27 mmol/L (22-29); Chloride 101 mmol/L (96-108); Estimated Glomerular Filt Rate 39; Glucose Random 237 mg/dL (60-115); Potassium 4.8 mmol/L (3.3-5.1); Sodium 139 mmol/L (135-145)
== END 2021-06-22 00:01 ==
LOC: HO.MMNH1L
PROVIDERS: Visit Provider Family Medicine
DX: I10 Essential (primary) hypertension (principal); E11.9 Type 2 diabetes mellitus without complications; K76.9 Liver disease, unspecified
CPT/HCPCS: 36415; 80048; 85025

== ENCOUNTER 2021-07-02 | Outpatient (REF) | payer OTHER, SELFPAY ==
[2021-07-02 06:37] LABS: Hematocrit 32.2 % (37.0-47.0); Hemoglobin 10.3 g/dl (12.0-16.0); Mean Corpuscular Hemoglobin 31.4 pg (27.0-33.0); Mean Corpuscular Volume 98.2 fL (80.0-98.0); Mean Platelet Volume 9.7 fL (9.4-12.3); Platelet Count 130 X10*3/uL (160-400); Red Blood Count 3.28 X10*6/uL (4.20-5.50); Red Cell Distribution Width 13.8 % (11.0-16.0); White Blood Count 4.9 X10*3/uL (4.8-10.8)
[2021-07-02 07:31] LABS: Anion Gap 14 (12-20); Blood Urea Nitrogen 37 mg/dL (9-16); Calcium 9.7 mg/dL (8.4-10.2); Carbon Dioxide 32 mmol/L (22-29); Chloride 97 mmol/L (96-108); Estimated Glomerular Filt Rate 34; Glucose Random 187 mg/dL (60-115); Potassium 5.1 mmol/L (3.3-5.1); Sodium 138 mmol/L (135-145)
== END 2021-07-02 00:01 ==
LOC: HO.MMNH1L
PROVIDERS: Visit Provider Family Medicine
DX: M51.36 Other intervertebral disc degeneration, lumbar region (principal); Z86.16 Personal history of COVID-19
CPT/HCPCS: 36415; 80048; 85027

== ENCOUNTER 2021-07-06 | Outpatient (REF) | payer OTHER, MEDICARE, SELFPAY ==
[2021-07-06 07:02] LABS: MANUAL DIFF FLAG NO
[2021-07-06 07:33] LABS: Basophils Percent Auto 0.6 % (0-2); Eosinophils Absolute Auto 0.2 X10*3/uL (0.0-0.4); Eosinophils Percent Auto 2.3 % (0-4); Hematocrit 33.5 % (37.0-47.0); Hemoglobin 10.6 g/dl (12.0-16.0); Imm Gran Abs Auto 0.02 X10*3/uL (0.00-0.03); Imm Gran Pct Auto 0.3 % (0.0-0.4); Lymphocytes Percent Auto 14.3 % (20-40); Mean Corpuscular HGB Conc 31.6 g/dl (31.0-35.0); Mean Platelet Volume 9.2 fL (9.4-12.3); Monocytes Absolute Auto 0.7 X10*3/uL (0.1-1.2); Monocytes Percent Auto 10.4 % (2-11); Neutrophils Absolute Auto 5.1 x10*3/uL (2.0-8.3); Neutrophils Percent Auto 72.1 % (45-73); Platelet Count 158 X10*3/uL (160-400); Red Blood Count 3.42 X10*6/uL (4.20-5.50); Red Cell Distribution Width 14.1 % (11.0-16.0)
[2021-07-06 07:59] LABS: Anion Gap 14 (12-20); Blood Urea Nitrogen 48 mg/dL (9-16); Calcium 9.3 mg/dL (8.4-10.2); Carbon Dioxide 32 mmol/L (22-29); Chloride 97 mmol/L (96-108); Estimated Glomerular Filt Rate 27; Glucose Random 249 mg/dL (60-115); Potassium 4.5 mmol/L (3.3-5.1); Sodium 138 mmol/L (135-145)
== END 2021-07-06 00:01 | disposition home or self-care (01) ==
LOC: HO.MMNH1L
PROVIDERS: Visit Provider Family Medicine
DX: M51.36 Other intervertebral disc degeneration, lumbar region (principal); Z86.16 Personal history of COVID-19
CPT/HCPCS: 36415; 80048; 85025

== ENCOUNTER 2021-07-23 10:53 | Outpatient (REF) | payer OTHER, SELFPAY ==
[2021-07-21 06:23] LABS: MANUAL DIFF FLAG NO
[2021-07-21 07:04] LABS: Basophils Percent Auto 0.6 % (0-2); Eosinophils Absolute Auto 0.1 X10*3/uL (0.0-0.4); Eosinophils Percent Auto 2.4 % (0-4); Hematocrit 33.1 % (37.0-47.0); Hemoglobin 10.5 g/dl (12.0-16.0); Imm Gran Abs Auto 0.01 X10*3/uL (0.00-0.03); Imm Gran Pct Auto 0.2 % (0.0-0.4); Lymphocytes Percent Auto 18.8 % (20-40); Mean Corpuscular HGB Conc 31.7 g/dl (31.0-35.0); Mean Corpuscular Hemoglobin 31.2 pg (27.0-33.0); Mean Corpuscular Volume 98.2 fL (80.0-98.0); Mean Platelet Volume 9.7 fL (9.4-12.3); Monocytes Absolute Auto 0.5 X10*3/uL (0.1-1.2); Monocytes Percent Auto 8.8 % (2-11); Neutrophils Absolute Auto 3.8 x10*3/uL (2.0-8.3); Neutrophils Percent Auto 69.2 % (45-73); Platelet Count 134 X10*3/uL (160-400); Red Blood Count 3.37 X10*6/uL (4.20-5.50); White Blood Count 5.4 X10*3/uL (4.8-10.8)
[2021-07-21 07:27] LABS: Anion Gap 17 (12-20); Blood Urea Nitrogen 46 mg/dL (9-16); Calcium 9.4 mg/dL (8.4-10.2); Carbon Dioxide 28 mmol/L (22-29); Chloride 100 mmol/L (96-108); Estimated Glomerular Filt Rate 24; Glucose Random 230 mg/dL (60-115); Potassium 4.8 mmol/L (3.3-5.1); Sodium 140 mmol/L (135-145)
== END 2021-07-23 10:54 | disposition home or self-care (01) ==
LOC: HO.MMNH1L 10:53
PROVIDERS: Visit Provider Family Medicine
DX: M51.36 Other intervertebral disc degeneration, lumbar region (principal); Z86.16 Personal history of COVID-19
CPT/HCPCS: 36415; 80048; 85025

== ENCOUNTER 2021-07-23 11:21 | Outpatient (REF) | payer OTHER, MEDICARE, SELFPAY ==
[2021-07-13 06:49] LABS: MANUAL DIFF FLAG NO
[2021-07-13 07:03] LABS: Basophils Percent Auto 0.7 % (0-2); Eosinophils Absolute Auto 0.1 X10*3/uL (0.0-0.4); Hemoglobin 10.9 g/dl (12.0-16.0); Imm Gran Abs Auto 0.01 X10*3/uL (0.00-0.03); Imm Gran Pct Auto 0.2 % (0.0-0.4); Lymphocytes Absolute Auto 1.2 X10*3/uL (1.2-4.9); Lymphocytes Percent Auto 20.4 % (20-40); Mean Corpuscular HGB Conc 32.1 g/dl (31.0-35.0); Mean Corpuscular Hemoglobin 31.4 pg (27.0-33.0); Mean Platelet Volume 9.7 fL (9.4-12.3); Monocytes Absolute Auto 0.5 X10*3/uL (0.1-1.2); Neutrophils Percent Auto 67.7 % (45-73); Platelet Count 151 X10*3/uL (160-400); Red Blood Count 3.47 X10*6/uL (4.20-5.50); Red Cell Distribution Width 13.9 % (11.0-16.0); White Blood Count 5.9 X10*3/uL (4.8-10.8)
[2021-07-13 07:38] LABS: Anion Gap 19 (12-20); Blood Urea Nitrogen 47 mg/dL (9-16); Calcium 9.2 mg/dL (8.4-10.2); Carbon Dioxide 31 mmol/L (22-29); Chloride 96 mmol/L (96-108); Estimated Glomerular Filt Rate 27; Glucose Random 192 mg/dL (60-115); Potassium 4.8 mmol/L (3.3-5.1); Sodium 141 mmol/L (135-145)
== END 2021-07-23 11:22 | disposition home or self-care (01) ==
LOC: HO.MMNH1L 11:21
PROVIDERS: Visit Provider Family Medicine
DX: M51.36 Other intervertebral disc degeneration, lumbar region (principal); Z86.16 Personal history of COVID-19
CPT/HCPCS: 36415; 80048; 85025

== ENCOUNTER 2021-07-27 06:30 | Outpatient (REF) | payer OTHER, MEDICARE, SELFPAY ==
[2021-07-27 06:39] LABS: MANUAL DIFF FLAG NO
[2021-07-27 07:12] LABS: Basophils Percent Auto 0.5 % (0-2); Eosinophils Absolute Auto 0.1 X10*3/uL (0.0-0.4); Eosinophils Percent Auto 1.9 % (0-4); Hematocrit 32.6 % (37.0-47.0); Hemoglobin 10.4 g/dl (12.0-16.0); Imm Gran Abs Auto 0.01 X10*3/uL (0.00-0.03); Imm Gran Pct Auto 0.2 % (0.0-0.4); Lymphocytes Absolute Auto 0.9 X10*3/uL (1.2-4.9); Lymphocytes Percent Auto 21.3 % (20-40); Mean Corpuscular HGB Conc 31.9 g/dl (31.0-35.0); Mean Corpuscular Hemoglobin 31.3 pg (27.0-33.0); Mean Corpuscular Volume 98.2 fL (80.0-98.0); Mean Platelet Volume 9.7 fL (9.4-12.3); Monocytes Absolute Auto 0.4 X10*3/uL (0.1-1.2); Neutrophils Absolute Auto 2.9 x10*3/uL (2.0-8.3); Neutrophils Percent Auto 67.1 % (45-73); Platelet Count 128 X10*3/uL (160-400); Red Blood Count 3.32 X10*6/uL (4.20-5.50); Red Cell Distribution Width 13.7 % (11.0-16.0); White Blood Count 4.3 X10*3/uL (4.8-10.8)
[2021-07-27 07:43] LABS: Anion Gap 12 (12-20); Blood Urea Nitrogen 27 mg/dL (9-16); Calcium 9.3 mg/dL (8.4-10.2); Carbon Dioxide 31 mmol/L (22-29); Chloride 103 mmol/L (96-108); Estimated Glomerular Filt Rate 38; Glucose Random 205 mg/dL (60-115); Potassium 4.6 mmol/L (3.3-5.1); Sodium 141 mmol/L (135-145)
== END 2021-07-27 06:31 | disposition home or self-care (01) ==
LOC: HO.MMNH1L 06:30
PROVIDERS: Visit Provider Family Medicine
DX: M51.36 Other intervertebral disc degeneration, lumbar region (principal); Z86.16 Personal history of COVID-19
CPT/HCPCS: 36415; 80048; 85025

== ENCOUNTER 2021-08-03 06:12 | Outpatient (REF) | payer OTHER, MEDICARE, SELFPAY ==
[2021-08-03 06:15] LABS: MANUAL DIFF FLAG NO
[2021-08-03 06:51] LABS: Basophils Percent Auto 0.5 % (0-2); Eosinophils Absolute Auto 0.1 X10*3/uL (0.0-0.4); Eosinophils Percent Auto 2.1 % (0-4); Hematocrit 31.3 % (37.0-47.0); Imm Gran Abs Auto 0.01 X10*3/uL (0.00-0.03); Imm Gran Pct Auto 0.2 % (0.0-0.4); Lymphocytes Absolute Auto 0.9 X10*3/uL (1.2-4.9); Lymphocytes Percent Auto 21.7 % (20-40); Mean Corpuscular HGB Conc 31.9 g/dl (31.0-35.0); Mean Corpuscular Hemoglobin 31.4 pg (27.0-33.0); Mean Corpuscular Volume 98.4 fL (80.0-98.0); Mean Platelet Volume 9.7 fL (9.4-12.3); Monocytes Absolute Auto 0.4 X10*3/uL (0.1-1.2); Monocytes Percent Auto 10.3 % (2-11); Neutrophils Absolute Auto 2.8 x10*3/uL (2.0-8.3); Neutrophils Percent Auto 65.2 % (45-73); Platelet Count 121 X10*3/uL (160-400); Red Blood Count 3.18 X10*6/uL (4.20-5.50); Red Cell Distribution Width 13.9 % (11.0-16.0); White Blood Count 4.3 X10*3/uL (4.8-10.8)
[2021-08-03 07:18] LABS: Anion Gap 14 (12-20); Blood Urea Nitrogen 34 mg/dL (9-16); Calcium 8.5 mg/dL (8.4-10.2); Carbon Dioxide 30 mmol/L (22-29); Chloride 104 mmol/L (96-108); Estimated Glomerular Filt Rate 34; Glucose Random 152 mg/dL (60-115); Potassium 4.7 mmol/L (3.3-5.1); Sodium 143 mmol/L (135-145)
== END 2021-08-03 06:13 | disposition home or self-care (01) ==
LOC: HO.MMNH1L 06:12
PROVIDERS: Visit Provider Family Medicine
DX: M51.36 Other intervertebral disc degeneration, lumbar region (principal); Z86.16 Personal history of COVID-19
CPT/HCPCS: 36415; 80048; 85025

== ENCOUNTER 2021-08-10 08:55 | Outpatient (REF) | payer OTHER, SELFPAY ==
[2021-08-10 06:41] LABS: MANUAL DIFF FLAG NO
[2021-08-10 06:42] LABS: Basophils Percent Auto 0.4 % (0-2); Eosinophils Absolute Auto 0.1 X10*3/uL (0.0-0.4); Eosinophils Percent Auto 1.3 % (0-4); Hematocrit 32.6 % (37.0-47.0); Hemoglobin 10.2 g/dl (12.0-16.0); Imm Gran Abs Auto 0.01 X10*3/uL (0.00-0.03); Imm Gran Pct Auto 0.2 % (0.0-0.4); Lymphocytes Absolute Auto 0.9 X10*3/uL (1.2-4.9); Lymphocytes Percent Auto 17.9 % (20-40); Mean Corpuscular HGB Conc 31.3 g/dl (31.0-35.0); Mean Corpuscular Hemoglobin 30.9 pg (27.0-33.0); Mean Corpuscular Volume 98.8 fL (80.0-98.0); Mean Platelet Volume 9.2 fL (9.4-12.3); Monocytes Absolute Auto 0.4 X10*3/uL (0.1-1.2); Monocytes Percent Auto 8.2 % (2-11); Neutrophils Absolute Auto 3.4 x10*3/uL (2.0-8.3); Platelet Count 116 X10*3/uL (160-400); White Blood Count 4.8 X10*3/uL (4.8-10.8)
[2021-08-10 07:18] LABS: Anion Gap 15 (12-20); Blood Urea Nitrogen 43 mg/dL (9-16); Calcium 8.8 mg/dL (8.4-10.2); Carbon Dioxide 28 mmol/L (22-29); Chloride 101 mmol/L (96-108); Estimated Glomerular Filt Rate 35; Glucose Random 255 mg/dL (60-115); Potassium 4.8 mmol/L (3.3-5.1); Sodium 139 mmol/L (135-145)
== END 2021-08-10 08:56 | disposition home or self-care (01) ==
LOC: HO.MMNH1L 08:55
PROVIDERS: Visit Provider Family Medicine
DX: M51.36 Other intervertebral disc degeneration, lumbar region (principal); Z86.16 Personal history of COVID-19
CPT/HCPCS: 36415; 80048; 85025

== ENCOUNTER 2021-08-17 06:17 | Outpatient (REF) | payer OTHER, SELFPAY ==
[2021-08-17 06:17] LABS: MANUAL DIFF FLAG NO
[2021-08-17 07:08] LABS: Basophils Percent Auto 0.5 % (0-2); Eosinophils Absolute Auto 0.1 X10*3/uL (0.0-0.4); Eosinophils Percent Auto 2.3 % (0-4); Hematocrit 35.3 % (37.0-47.0); Hemoglobin 10.9 g/dl (12.0-16.0); Imm Gran Abs Auto 0.01 X10*3/uL (0.00-0.03); Imm Gran Pct Auto 0.2 % (0.0-0.4); Lymphocytes Percent Auto 17.6 % (20-40); Mean Corpuscular HGB Conc 30.9 g/dl (31.0-35.0); Mean Corpuscular Hemoglobin 30.6 pg (27.0-33.0); Mean Corpuscular Volume 99.2 fL (80.0-98.0); Mean Platelet Volume 9.9 fL (9.4-12.3); Monocytes Absolute Auto 0.5 X10*3/uL (0.1-1.2); Monocytes Percent Auto 8.4 % (2-11); Neutrophils Absolute Auto 4.1 x10*3/uL (2.0-8.3); Platelet Count 119 X10*3/uL (160-400); Red Blood Count 3.56 X10*6/uL (4.20-5.50); White Blood Count 5.7 X10*3/uL (4.8-10.8)
[2021-08-17 07:21] LABS: Anion Gap 20 (12-20); Blood Urea Nitrogen 36 mg/dL (9-16); Calcium 9.6 mg/dL (8.4-10.2); Carbon Dioxide 27 mmol/L (22-29); Chloride 99 mmol/L (96-108); Estimated Glomerular Filt Rate 33; Glucose Random 193 mg/dL (60-115); Potassium 4.4 mmol/L (3.3-5.1); Sodium 142 mmol/L (135-145)
== END 2021-08-17 06:18 | disposition home or self-care (01) ==
LOC: HO.MMNH1L 06:17
PROVIDERS: Visit Provider Family Medicine
DX: M51.36 Other intervertebral disc degeneration, lumbar region (principal); Z86.16 Personal history of COVID-19
CPT/HCPCS: 36415; 80048; 85025

== ENCOUNTER 2021-08-25 07:08 | Outpatient (REF) | payer OTHER, SELFPAY ==
[2021-08-25 06:28] LABS: MANUAL DIFF FLAG NO
[2021-08-25 06:44] LABS: Anion Gap 13 (12-20); Blood Urea Nitrogen 34 mg/dL (9-16); Calcium 9.2 mg/dL (8.4-10.2); Carbon Dioxide 31 mmol/L (22-29); Chloride 103 mmol/L (96-108); Estimated Glomerular Filt Rate 33; Glucose Random 158 mg/dL (60-115); Potassium 4.7 mmol/L (3.3-5.1); Sodium 142 mmol/L (135-145)
[2021-08-25 06:45] LABS: Basophils Percent Auto 0.5 % (0-2); Eosinophils Absolute Auto 0.1 X10*3/uL (0.0-0.4); Eosinophils Percent Auto 2.2 % (0-4); Hematocrit 31.5 % (37.0-47.0); Hemoglobin 9.6 g/dl (12.0-16.0); Imm Gran Abs Auto 0.02 X10*3/uL (0.00-0.03); Imm Gran Pct Auto 0.4 % (0.0-0.4); Lymphocytes Absolute Auto 1.2 X10*3/uL (1.2-4.9); Lymphocytes Percent Auto 21.7 % (20-40); Mean Corpuscular HGB Conc 30.5 g/dl (31.0-35.0); Mean Corpuscular Hemoglobin 30.6 pg (27.0-33.0); Mean Corpuscular Volume 100.3 fL (80.0-98.0); Mean Platelet Volume 9.5 fL (9.4-12.3); Monocytes Absolute Auto 0.6 X10*3/uL (0.1-1.2); Monocytes Percent Auto 10.5 % (2-11); Neutrophils Absolute Auto 3.6 x10*3/uL (2.0-8.3); Neutrophils Percent Auto 64.7 % (45-73); Platelet Count 122 X10*3/uL (160-400); Red Blood Count 3.14 X10*6/uL (4.20-5.50); Red Cell Distribution Width 14.2 % (11.0-16.0); White Blood Count 5.5 X10*3/uL (4.8-10.8)
== END 2021-08-25 07:09 | disposition home or self-care (01) ==
LOC: HO.MMNH1L 07:08
PROVIDERS: Visit Provider Family Medicine
DX: M51.36 Other intervertebral disc degeneration, lumbar region (principal); Z86.16 Personal history of COVID-19
CPT/HCPCS: 36415; 80048; 85025

== ENCOUNTER 2021-08-31 06:18 | Outpatient (REF) | payer OTHER, SELFPAY ==
[2021-08-31 06:35] LABS: MANUAL DIFF FLAG NO
[2021-08-31 06:54] LABS: Basophils Percent Auto 0.5 % (0-2); Eosinophils Absolute Auto 0.1 X10*3/uL (0.0-0.4); Eosinophils Percent Auto 2.1 % (0-4); Hematocrit 34.5 % (37.0-47.0); Imm Gran Abs Auto 0.02 X10*3/uL (0.00-0.03); Imm Gran Pct Auto 0.3 % (0.0-0.4); Lymphocytes Absolute Auto 1.3 X10*3/uL (1.2-4.9); Lymphocytes Percent Auto 22.3 % (20-40); Mean Corpuscular HGB Conc 31.9 g/dl (31.0-35.0); Mean Corpuscular Hemoglobin 31.6 pg (27.0-33.0); Mean Corpuscular Volume 99.1 fL (80.0-98.0); Mean Platelet Volume 9.6 fL (9.4-12.3); Monocytes Absolute Auto 0.5 X10*3/uL (0.1-1.2); Monocytes Percent Auto 9.4 % (2-11); Neutrophils Absolute Auto 3.7 x10*3/uL (2.0-8.3); Neutrophils Percent Auto 65.4 % (45-73); Platelet Count 141 X10*3/uL (160-400); Red Blood Count 3.48 X10*6/uL (4.20-5.50); White Blood Count 5.7 X10*3/uL (4.8-10.8)
[2021-08-31 07:16] LABS: Anion Gap 17 (12-20); Blood Urea Nitrogen 33 mg/dL (9-16); Calcium 9.4 mg/dL (8.4-10.2); Carbon Dioxide 27 mmol/L (22-29); Chloride 100 mmol/L (96-108); Estimated Glomerular Filt Rate 31; Glucose Random 203 mg/dL (60-115); Potassium 4.8 mmol/L (3.3-5.1); Sodium 139 mmol/L (135-145)
== END 2021-08-31 06:19 | disposition home or self-care (01) ==
LOC: HO.MMNH1L 06:18
PROVIDERS: Visit Provider Family Medicine
DX: M51.36 Other intervertebral disc degeneration, lumbar region (principal); Z86.16 Personal history of COVID-19
CPT/HCPCS: 36415; 80048; 85025

== ENCOUNTER 2021-09-07 06:55 | Outpatient (REF) | payer OTHER, SELFPAY ==
[2021-09-07 06:43] LABS: Hematocrit 32.9 % (37.0-47.0); Hemoglobin 10.3 g/dl (12.0-16.0); Mean Corpuscular HGB Conc 31.3 g/dl (31.0-35.0); Mean Corpuscular Hemoglobin 30.7 pg (27.0-33.0); Mean Corpuscular Volume 98.2 fL (80.0-98.0); Mean Platelet Volume 9.7 fL (9.4-12.3); Platelet Count 133 X10*3/uL (160-400); Red Blood Count 3.35 X10*6/uL (4.20-5.50); Red Cell Distribution Width 14.1 % (11.0-16.0); White Blood Count 4.8 X10*3/uL (4.8-10.8)
[2021-09-07 07:03] LABS: Anion Gap 14 (12-20); Blood Urea Nitrogen 34 mg/dL (9-16); Calcium 8.7 mg/dL (8.4-10.2); Carbon Dioxide 31 mmol/L (22-29); Chloride 101 mmol/L (96-108); Estimated Glomerular Filt Rate 27; Glucose Random 110 mg/dL (60-115); Potassium 4.6 mmol/L (3.3-5.1); Sodium 141 mmol/L (135-145)
== END 2021-09-07 06:56 | disposition home or self-care (01) ==
LOC: HO.MMNH1L 06:55
PROVIDERS: Visit Provider Family Medicine
DX: M51.36 Other intervertebral disc degeneration, lumbar region (principal); Z86.16 Personal history of COVID-19
CPT/HCPCS: 36415; 80048; 85027

== ENCOUNTER 2021-09-14 06:20 | Outpatient (REF) | payer OTHER, SELFPAY ==
[2021-09-14 06:24] LABS: MANUAL DIFF FLAG NO
[2021-09-14 06:47] LABS: Basophils Percent Auto 0.6 % (0-2); Eosinophils Absolute Auto 0.1 X10*3/uL (0.0-0.4); Eosinophils Percent Auto 2.4 % (0-4); Hematocrit 32.8 % (37.0-47.0); Hemoglobin 10.4 g/dl (12.0-16.0); Imm Gran Abs Auto 0.01 X10*3/uL (0.00-0.03); Imm Gran Pct Auto 0.2 % (0.0-0.4); Lymphocytes Absolute Auto 1.1 X10*3/uL (1.2-4.9); Lymphocytes Percent Auto 23.4 % (20-40); Mean Corpuscular HGB Conc 31.7 g/dl (31.0-35.0); Mean Corpuscular Hemoglobin 31.5 pg (27.0-33.0); Mean Corpuscular Volume 99.4 fL (80.0-98.0); Mean Platelet Volume 9.8 fL (9.4-12.3); Monocytes Absolute Auto 0.4 X10*3/uL (0.1-1.2); Monocytes Percent Auto 8.7 % (2-11); Neutrophils Percent Auto 64.7 % (45-73); Platelet Count 128 X10*3/uL (160-400); Red Cell Distribution Width 14.1 % (11.0-16.0); White Blood Count 4.6 X10*3/uL (4.8-10.8)
[2021-09-14 07:18] LABS: Anion Gap 16 (12-20); Blood Urea Nitrogen 34 mg/dL (9-16); Calcium 8.7 mg/dL (8.4-10.2); Carbon Dioxide 29 mmol/L (22-29); Chloride 103 mmol/L (96-108); Estimated Glomerular Filt Rate 32; Glucose Random 93 mg/dL (60-115); Potassium 5.1 mmol/L (3.3-5.1); Sodium 143 mmol/L (135-145)
== END 2021-09-14 06:21 | disposition home or self-care (01) ==
LOC: HO.MMNH1L 06:20
PROVIDERS: Visit Provider Family Medicine
DX: M51.36 Other intervertebral disc degeneration, lumbar region (principal); Z86.16 Personal history of COVID-19
CPT/HCPCS: 36415; 80048; 85025

== ENCOUNTER 2021-09-21 06:38 | Outpatient (REF) | payer OTHER, SELFPAY ==
[2021-09-21 06:31] LABS: MANUAL DIFF FLAG NO
[2021-09-21 06:59] LABS: Basophils Percent Auto 0.5 % (0-2); Eosinophils Absolute Auto 0.1 X10*3/uL (0.0-0.4); Eosinophils Percent Auto 2.6 % (0-4); Hematocrit 32.9 % (37.0-47.0); Hemoglobin 10.4 g/dl (12.0-16.0); Imm Gran Abs Auto 0.01 X10*3/uL (0.00-0.03); Imm Gran Pct Auto 0.2 % (0.0-0.4); Lymphocytes Percent Auto 23.3 % (20-40); Mean Corpuscular HGB Conc 31.6 g/dl (31.0-35.0); Mean Corpuscular Hemoglobin 31.9 pg (27.0-33.0); Mean Corpuscular Volume 100.9 fL (80.0-98.0); Mean Platelet Volume 9.8 fL (9.4-12.3); Monocytes Absolute Auto 0.5 X10*3/uL (0.1-1.2); Monocytes Percent Auto 11.9 % (2-11); Neutrophils Absolute Auto 2.6 x10*3/uL (2.0-8.3); Neutrophils Percent Auto 61.5 % (45-73); Platelet Count 113 X10*3/uL (160-400); Red Blood Count 3.26 X10*6/uL (4.20-5.50); Red Cell Distribution Width 14.3 % (11.0-16.0); White Blood Count 4.2 X10*3/uL (4.8-10.8)
[2021-09-21 07:04] LABS: Anion Gap 17 (12-20); Blood Urea Nitrogen 42 mg/dL (9-16); Carbon Dioxide 29 mmol/L (22-29); Chloride 102 mmol/L (96-108); Estimated Glomerular Filt Rate 24; Glucose Random 226 mg/dL (60-115); Potassium 4.4 mmol/L (3.3-5.1); Sodium 144 mmol/L (135-145)
== END 2021-09-21 06:39 | disposition home or self-care (01) ==
LOC: HO.MMNH1L 06:38
PROVIDERS: Visit Provider Family Medicine
DX: M51.36 Other intervertebral disc degeneration, lumbar region (principal); Z86.16 Personal history of COVID-19
CPT/HCPCS: 36415; 80048; 85025

== ENCOUNTER 2021-09-28 06:37 | Outpatient (REF) | payer OTHER, SELFPAY ==
[2021-09-28 06:19] LABS: MANUAL DIFF FLAG NO
[2021-09-28 07:20] LABS: Basophils Percent Auto 0.5 % (0-2); Eosinophils Absolute Auto 0.2 X10*3/uL (0.0-0.4); Hematocrit 34.8 % (37.0-47.0); Hemoglobin 11.2 g/dl (12.0-16.0); Imm Gran Abs Auto 0.01 X10*3/uL (0.00-0.03); Imm Gran Pct Auto 0.2 % (0.0-0.4); Lymphocytes Absolute Auto 1.3 X10*3/uL (1.2-4.9); Lymphocytes Percent Auto 23.9 % (20-40); Mean Corpuscular HGB Conc 32.2 g/dl (31.0-35.0); Mean Corpuscular Hemoglobin 31.8 pg (27.0-33.0); Mean Corpuscular Volume 98.9 fL (80.0-98.0); Mean Platelet Volume 9.7 fL (9.4-12.3); Monocytes Absolute Auto 0.5 X10*3/uL (0.1-1.2); Monocytes Percent Auto 9.3 % (2-11); Neutrophils Absolute Auto 3.5 x10*3/uL (2.0-8.3); Neutrophils Percent Auto 63.1 % (45-73); Platelet Count 150 X10*3/uL (160-400); Red Blood Count 3.52 X10*6/uL (4.20-5.50); Red Cell Distribution Width 14.3 % (11.0-16.0); White Blood Count 5.6 X10*3/uL (4.8-10.8)
[2021-09-28 07:29] LABS: Anion Gap 15 (12-20); Blood Urea Nitrogen 28 mg/dL (9-16); Calcium 9.7 mg/dL (8.4-10.2); Carbon Dioxide 30 mmol/L (22-29); Chloride 101 mmol/L (96-108); Estimated Glomerular Filt Rate 39; Glucose Random 191 mg/dL (60-115); Potassium 4.5 mmol/L (3.3-5.1); Sodium 141 mmol/L (135-145)
== END 2021-09-28 06:38 | disposition home or self-care (01) ==
LOC: HO.MMNH1L 06:37
PROVIDERS: Visit Provider Family Medicine
DX: M51.36 Other intervertebral disc degeneration, lumbar region (principal); Z86.16 Personal history of COVID-19
CPT/HCPCS: 36415; 80048; 85025

== ENCOUNTER 2021-10-05 06:20 | Outpatient (REF) | payer OTHER, SELFPAY ==
[2021-10-05 06:13] LABS: MANUAL DIFF FLAG NO
[2021-10-05 06:30] LABS: Basophils Percent Auto 0.6 % (0-2); Eosinophils Absolute Auto 0.1 X10*3/uL (0.0-0.4); Eosinophils Percent Auto 2.8 % (0-4); Hematocrit 31.3 % (37.0-47.0); Imm Gran Abs Auto 0.02 X10*3/uL (0.00-0.03); Imm Gran Pct Auto 0.4 % (0.0-0.4); Lymphocytes Percent Auto 21.4 % (20-40); Mean Corpuscular HGB Conc 31.9 g/dl (31.0-35.0); Mean Corpuscular Hemoglobin 31.4 pg (27.0-33.0); Mean Corpuscular Volume 98.4 fL (80.0-98.0); Monocytes Absolute Auto 0.6 X10*3/uL (0.1-1.2); Monocytes Percent Auto 12.2 % (2-11); Neutrophils Absolute Auto 2.9 x10*3/uL (2.0-8.3); Neutrophils Percent Auto 62.6 % (45-73); Platelet Count 115 X10*3/uL (160-400); Red Blood Count 3.18 X10*6/uL (4.20-5.50); Red Cell Distribution Width 13.6 % (11.0-16.0); White Blood Count 4.7 X10*3/uL (4.8-10.8)
[2021-10-05 07:10] LABS: Anion Gap 15 (12-20); Blood Urea Nitrogen 32 mg/dL (9-16); Calcium 8.5 mg/dL (8.4-10.2); Carbon Dioxide 33 mmol/L (22-29); Chloride 96 mmol/L (96-108); Estimated Glomerular Filt Rate 29; Glucose Random 183 mg/dL (60-115); Potassium 4.2 mmol/L (3.3-5.1); Sodium 140 mmol/L (135-145)
== END 2021-10-05 06:21 | disposition home or self-care (01) ==
LOC: HO.MMNH1L 06:20
PROVIDERS: Visit Provider Family Medicine
DX: M51.36 Other intervertebral disc degeneration, lumbar region (principal); Z86.16 Personal history of COVID-19
CPT/HCPCS: 36415; 80048; 85025

== ENCOUNTER 2021-10-12 06:29 | Outpatient (REF) | payer OTHER, SELFPAY ==
[2021-10-12 06:17] LABS: MANUAL DIFF FLAG NO
[2021-10-12 06:27] LABS: Basophils Absolute Auto 0.1 X10*3/uL (0.0-0.2); Basophils Percent Auto 0.8 % (0-2); Eosinophils Absolute Auto 0.2 X10*3/uL (0.0-0.4); Eosinophils Percent Auto 3.9 % (0-4); Hematocrit 34.9 % (37.0-47.0); Hemoglobin 11.1 g/dl (12.0-16.0); Imm Gran Abs Auto 0.01 X10*3/uL (0.00-0.03); Imm Gran Pct Auto 0.2 % (0.0-0.4); Lymphocytes Absolute Auto 1.5 X10*3/uL (1.2-4.9); Lymphocytes Percent Auto 24.4 % (20-40); Mean Corpuscular HGB Conc 31.8 g/dl (31.0-35.0); Mean Corpuscular Hemoglobin 31.4 pg (27.0-33.0); Mean Corpuscular Volume 98.6 fL (80.0-98.0); Mean Platelet Volume 9.7 fL (9.4-12.3); Monocytes Absolute Auto 0.6 X10*3/uL (0.1-1.2); Monocytes Percent Auto 9.3 % (2-11); Neutrophils Absolute Auto 3.8 x10*3/uL (2.0-8.3); Neutrophils Percent Auto 61.4 % (45-73); Platelet Count 154 X10*3/uL (160-400); Red Blood Count 3.54 X10*6/uL (4.20-5.50); Red Cell Distribution Width 13.9 % (11.0-16.0); White Blood Count 6.2 X10*3/uL (4.8-10.8)
[2021-10-12 06:59] LABS: Anion Gap 20 (12-20); Blood Urea Nitrogen 28 mg/dL (9-16); Calcium 9.5 mg/dL (8.4-10.2); Carbon Dioxide 30 mmol/L (22-29); Chloride 96 mmol/L (96-108); Estimated Glomerular Filt Rate 30; Glucose Random 135 mg/dL (60-115); Potassium 4.9 mmol/L (3.3-5.1); Sodium 141 mmol/L (135-145)
== END 2021-10-12 06:30 | disposition home or self-care (01) ==
LOC: HO.MMNH1L 06:29
PROVIDERS: Visit Provider Family Medicine
DX: M51.36 Other intervertebral disc degeneration, lumbar region (principal); Z86.16 Personal history of COVID-19
CPT/HCPCS: 36415; 80048; 85025

== ENCOUNTER 2021-10-19 06:37 | Outpatient (REF) | payer OTHER, SELFPAY ==
[2021-10-19 06:24] LABS: MANUAL DIFF FLAG NO
[2021-10-19 06:46] LABS: Anion Gap 19 (12-20); Basophils Percent Auto 0.5 % (0-2); Blood Urea Nitrogen 33 mg/dL (9-16); Calcium 9.4 mg/dL (8.4-10.2); Carbon Dioxide 32 mmol/L (22-29); Chloride 96 mmol/L (96-108); Eosinophils Absolute Auto 0.2 X10*3/uL (0.0-0.4); Eosinophils Percent Auto 4.1 % (0-4); Estimated Glomerular Filt Rate 30; Glucose Random 294 mg/dL (60-115); Hematocrit 32.9 % (37.0-47.0); Hemoglobin 10.4 g/dl (12.0-16.0); Imm Gran Abs Auto 0.01 X10*3/uL (0.00-0.03); Imm Gran Pct Auto 0.2 % (0.0-0.4); Lymphocytes Percent Auto 21.9 % (20-40); Mean Corpuscular HGB Conc 31.6 g/dl (31.0-35.0); Mean Corpuscular Hemoglobin 31.3 pg (27.0-33.0); Mean Corpuscular Volume 99.1 fL (80.0-98.0); Mean Platelet Volume 9.9 fL (9.4-12.3); Monocytes Absolute Auto 0.4 X10*3/uL (0.1-1.2); Neutrophils Absolute Auto 2.8 x10*3/uL (2.0-8.3); Neutrophils Percent Auto 64.3 % (45-73); Platelet Count 120 X10*3/uL (160-400); Potassium 4.8 mmol/L (3.3-5.1); Red Blood Count 3.32 X10*6/uL (4.20-5.50); Red Cell Distribution Width 13.9 % (11.0-16.0); Sodium 142 mmol/L (135-145); White Blood Count 4.4 X10*3/uL (4.8-10.8)
== END 2021-10-19 06:38 | disposition home or self-care (01) ==
LOC: HO.MMNH1L 06:37
PROVIDERS: Visit Provider Family Medicine
DX: M51.36 Other intervertebral disc degeneration, lumbar region (principal); Z86.16 Personal history of COVID-19
CPT/HCPCS: 36415; 80048; 85025

== ENCOUNTER 2021-10-27 06:30 | Outpatient (REF) | payer OTHER, SELFPAY ==
[2021-10-27 06:32] LABS: MANUAL DIFF FLAG NO
[2021-10-27 06:59] LABS: Basophils Percent Auto 0.8 % (0-2); Eosinophils Absolute Auto 0.2 X10*3/uL (0.0-0.4); Eosinophils Percent Auto 3.4 % (0-4); Hematocrit 32.5 % (37.0-47.0); Hemoglobin 10.3 g/dl (12.0-16.0); Imm Gran Abs Auto 0.01 X10*3/uL (0.00-0.03); Imm Gran Pct Auto 0.2 % (0.0-0.4); Lymphocytes Absolute Auto 1.1 X10*3/uL (1.2-4.9); Lymphocytes Percent Auto 21.4 % (20-40); Mean Corpuscular HGB Conc 31.7 g/dl (31.0-35.0); Mean Corpuscular Hemoglobin 31.4 pg (27.0-33.0); Mean Corpuscular Volume 99.1 fL (80.0-98.0); Monocytes Absolute Auto 0.5 X10*3/uL (0.1-1.2); Monocytes Percent Auto 9.2 % (2-11); Neutrophils Absolute Auto 3.2 x10*3/uL (2.0-8.3); Platelet Count 120 X10*3/uL (160-400); Red Blood Count 3.28 X10*6/uL (4.20-5.50); Red Cell Distribution Width 13.8 % (11.0-16.0)
[2021-10-27 07:47] LABS: Anion Gap 17 (12-20); Blood Urea Nitrogen 39 mg/dL (9-16); Carbon Dioxide 28 mmol/L (22-29); Chloride 100 mmol/L (96-108); Estimated Glomerular Filt Rate 31; Glucose Random 230 mg/dL (60-115); Potassium 4.6 mmol/L (3.3-5.1); Sodium 140 mmol/L (135-145)
== END 2021-10-27 06:31 | disposition home or self-care (01) ==
LOC: HO.MMNH1L 06:30
PROVIDERS: Visit Provider Family Medicine
DX: M51.36 Other intervertebral disc degeneration, lumbar region (principal); Z86.16 Personal history of COVID-19
CPT/HCPCS: 36415; 80048; 85025

== ENCOUNTER 2021-11-02 06:59 | Outpatient (REF) | payer OTHER, SELFPAY ==
[2021-11-02 07:25] LABS: Hematocrit 33.7 % (37.0-47.0); Hemoglobin 10.6 g/dl (12.0-16.0); Mean Corpuscular HGB Conc 31.5 g/dl (31.0-35.0); Mean Corpuscular Hemoglobin 31.2 pg (27.0-33.0); Mean Corpuscular Volume 99.1 fL (80.0-98.0); Mean Platelet Volume 9.8 fL (9.4-12.3); Platelet Count 138 X10*3/uL (160-400); Red Cell Distribution Width 13.8 % (11.0-16.0); White Blood Count 5.4 X10*3/uL (4.8-10.8)
[2021-11-02 08:03] LABS: Anion Gap 19 (12-20); Blood Urea Nitrogen 39 mg/dL (9-16); Calcium 9.2 mg/dL (8.4-10.2); Carbon Dioxide 28 mmol/L (22-29); Chloride 100 mmol/L (96-108); Estimated Glomerular Filt Rate 29; Glucose Random 126 mg/dL (60-115); Potassium 4.9 mmol/L (3.3-5.1); Sodium 142 mmol/L (135-145)
== END 2021-11-02 07:00 | disposition home or self-care (01) ==
LOC: HO.MMNH1L 06:59
PROVIDERS: Visit Provider Family Medicine
DX: M51.36 Other intervertebral disc degeneration, lumbar region (principal); Z86.16 Personal history of COVID-19
CPT/HCPCS: 36415; 80048; 85027

== ENCOUNTER 2021-11-09 06:43 | Outpatient (REF) | payer OTHER, SELFPAY ==
[2021-11-09 06:42] LABS: Hematocrit 32.2 % (37.0-47.0); Hemoglobin 10.2 g/dl (12.0-16.0); Mean Corpuscular HGB Conc 31.7 g/dl (31.0-35.0); Mean Corpuscular Volume 97.9 fL (80.0-98.0); Platelet Count 135 X10*3/uL (160-400); Red Blood Count 3.29 X10*6/uL (4.20-5.50); Red Cell Distribution Width 13.6 % (11.0-16.0); White Blood Count 4.6 X10*3/uL (4.8-10.8)
[2021-11-09 07:18] LABS: Anion Gap 19 (12-20); Blood Urea Nitrogen 32 mg/dL (9-16); Calcium 9.1 mg/dL (8.4-10.2); Carbon Dioxide 28 mmol/L (22-29); Chloride 100 mmol/L (96-108); Estimated Glomerular Filt Rate 36; Glucose Random 103 mg/dL (60-115); Potassium 4.5 mmol/L (3.3-5.1); Sodium 142 mmol/L (135-145)
== END 2021-11-09 06:44 | disposition home or self-care (01) ==
LOC: HO.MMNH1L 06:43
PROVIDERS: Visit Provider Family Medicine
DX: M51.36 Other intervertebral disc degeneration, lumbar region (principal); Z86.16 Personal history of COVID-19
CPT/HCPCS: 36415; 80048; 85027

== ENCOUNTER → 2021-11-11 13:28 | Outpatient (BNVA) | payer OTHER, SELFPAY | PROVIDERS: PCP Internal Medicine; Referring Provider Internal Medicine; Visit Provider Internal Medicine | DX: K74.60 Unspecified cirrhosis of liver (principal); K64.9 Unspecified hemorrhoids | CPT/HCPCS: 99212 ==

== ENCOUNTER 2021-11-16 06:49 | Outpatient (REF) | payer OTHER, SELFPAY ==
[2021-11-16 06:41] LABS: MANUAL DIFF FLAG NO
[2021-11-16 06:46] LABS: Basophils Percent Auto 0.4 % (0-2); Eosinophils Percent Auto 0.6 % (0-4); Hematocrit 35.7 % (37.0-47.0); Hemoglobin 11.4 g/dl (12.0-16.0); Imm Gran Abs Auto 0.02 X10*3/uL (0.00-0.03); Imm Gran Pct Auto 0.4 % (0.0-0.4); Lymphocytes Absolute Auto 0.8 X10*3/uL (1.2-4.9); Lymphocytes Percent Auto 16.9 % (20-40); Mean Corpuscular HGB Conc 31.9 g/dl (31.0-35.0); Mean Corpuscular Hemoglobin 31.1 pg (27.0-33.0); Mean Corpuscular Volume 97.5 fL (80.0-98.0); Mean Platelet Volume 9.7 fL (9.4-12.3); Monocytes Absolute Auto 0.5 X10*3/uL (0.1-1.2); Monocytes Percent Auto 9.4 % (2-11); Neutrophils Absolute Auto 3.6 x10*3/uL (2.0-8.3); Neutrophils Percent Auto 72.3 % (45-73); Platelet Count 125 X10*3/uL (160-400); Red Blood Count 3.66 X10*6/uL (4.20-5.50); Red Cell Distribution Width 13.6 % (11.0-16.0)
[2021-11-16 07:11] LABS: Anion Gap 20 (12-20); Blood Urea Nitrogen 41 mg/dL (9-16); Calcium 9.8 mg/dL (8.4-10.2); Carbon Dioxide 28 mmol/L (22-29); Chloride 98 mmol/L (96-108); Estimated Glomerular Filt Rate 35; Glucose Random 252 mg/dL (60-115); Potassium 4.8 mmol/L (3.3-5.1); Sodium 141 mmol/L (135-145)
== END 2021-11-16 06:50 | disposition home or self-care (01) ==
LOC: HO.MMNH1L 06:49
PROVIDERS: Visit Provider Family Medicine
DX: M51.36 Other intervertebral disc degeneration, lumbar region (principal); Z86.16 Personal history of COVID-19
CPT/HCPCS: 36415; 80048; 85025

== ENCOUNTER 2021-11-23 07:22 | Outpatient (REF) | payer OTHER, SELFPAY ==
[2021-11-23 07:18] LABS: MANUAL DIFF FLAG NO
[2021-11-23 07:28] LABS: Basophils Percent Auto 0.3 % (0-2); Eosinophils Percent Auto 0.5 % (0-4); Hemoglobin 11.6 g/dl (12.0-16.0); Imm Gran Abs Auto 0.04 X10*3/uL (0.00-0.03); Imm Gran Pct Auto 0.6 % (0.0-0.4); Lymphocytes Absolute Auto 0.7 X10*3/uL (1.2-4.9); Mean Corpuscular HGB Conc 31.4 g/dl (31.0-35.0); Mean Corpuscular Hemoglobin 30.5 pg (27.0-33.0); Mean Corpuscular Volume 97.4 fL (80.0-98.0); Mean Platelet Volume 9.8 fL (9.4-12.3); Monocytes Absolute Auto 0.4 X10*3/uL (0.1-1.2); Monocytes Percent Auto 6.7 % (2-11); Neutrophils Absolute Auto 5.3 x10*3/uL (2.0-8.3); Neutrophils Percent Auto 80.9 % (45-73); Platelet Count 130 X10*3/uL (160-400); Red Cell Distribution Width 13.9 % (11.0-16.0); White Blood Count 6.6 X10*3/uL (4.8-10.8)
[2021-11-23 08:16] LABS: Anion Gap 19 (12-20); Blood Urea Nitrogen 43 mg/dL (9-16); Calcium 9.1 mg/dL (8.4-10.2); Carbon Dioxide 26 mmol/L (22-29); Chloride 98 mmol/L (96-108); Estimated Glomerular Filt Rate 35; Glucose Random 341 mg/dL (60-115); Sodium 138 mmol/L (135-145)
== END 2021-11-23 07:23 | disposition home or self-care (01) ==
LOC: HO.MMNH1L 07:22
PROVIDERS: Visit Provider Family Medicine
DX: M51.36 Other intervertebral disc degeneration, lumbar region (principal); Z86.16 Personal history of COVID-19
CPT/HCPCS: 36415; 80048; 85025

== ENCOUNTER 2021-11-30 06:41 | Outpatient (REF) | payer OTHER, SELFPAY ==
[2021-11-30 06:57] LABS: Hematocrit 35.2 % (37.0-47.0); Hemoglobin 11.2 g/dl (12.0-16.0); Mean Corpuscular HGB Conc 31.8 g/dl (31.0-35.0); Mean Corpuscular Hemoglobin 31.4 pg (27.0-33.0); Mean Corpuscular Volume 98.6 fL (80.0-98.0); Mean Platelet Volume 9.8 fL (9.4-12.3); Platelet Count 128 X10*3/uL (160-400); Red Blood Count 3.57 X10*6/uL (4.20-5.50); Red Cell Distribution Width 13.6 % (11.0-16.0); White Blood Count 5.8 X10*3/uL (4.8-10.8)
[2021-11-30 07:13] LABS: Anion Gap 18 (12-20); Blood Urea Nitrogen 45 mg/dL (9-16); Calcium 9.4 mg/dL (8.4-10.2); Carbon Dioxide 28 mmol/L (22-29); Chloride 103 mmol/L (96-108); Estimated Glomerular Filt Rate 37; Glucose Random 155 mg/dL (60-115); Sodium 144 mmol/L (135-145)
== END 2021-11-30 06:42 | disposition home or self-care (01) ==
LOC: HO.MMNH1L 06:41
PROVIDERS: Visit Provider Family Medicine
DX: M51.36 Other intervertebral disc degeneration, lumbar region (principal); Z86.16 Personal history of COVID-19
CPT/HCPCS: 36415; 80048; 85027

== ENCOUNTER 2021-12-07 09:29 | Outpatient (REF) | payer OTHER, SELFPAY ==
[2021-12-07 10:03] LABS: Hematocrit 33.9 % (37.0-47.0); Hemoglobin 10.9 g/dl (12.0-16.0); Mean Corpuscular HGB Conc 32.2 g/dl (31.0-35.0); Mean Corpuscular Volume 96.3 fL (80.0-98.0); Mean Platelet Volume 9.7 fL (9.4-12.3); Platelet Count 105 X10*3/uL (160-400); Red Blood Count 3.52 X10*6/uL (4.20-5.50); Red Cell Distribution Width 13.7 % (11.0-16.0); White Blood Count 4.7 X10*3/uL (4.8-10.8)
[2021-12-07 10:26] LABS: Anion Gap 18 (12-20); Blood Urea Nitrogen 42 mg/dL (9-16); Calcium 9.4 mg/dL (8.4-10.2); Carbon Dioxide 30 mmol/L (22-29); Chloride 98 mmol/L (96-108); Estimated Glomerular Filt Rate 34; Glucose Random 176 mg/dL (60-115); Potassium 5.1 mmol/L (3.3-5.1); Sodium 141 mmol/L (135-145)
== END 2021-12-07 09:30 | disposition home or self-care (01) ==
LOC: HO.MMNH1L 09:29
PROVIDERS: Visit Provider Family Medicine
DX: M51.36 Other intervertebral disc degeneration, lumbar region (principal); Z86.16 Personal history of COVID-19
CPT/HCPCS: 36415; 80048; 85027

== ENCOUNTER 2021-12-14 06:57 | Outpatient (REF) | payer OTHER, SELFPAY ==
[2021-12-14 07:37] LABS: Hematocrit 32.5 % (37.0-47.0); Hemoglobin 10.5 g/dl (12.0-16.0); Mean Corpuscular HGB Conc 32.3 g/dl (31.0-35.0); Mean Corpuscular Hemoglobin 31.3 pg (27.0-33.0); Mean Corpuscular Volume 96.7 fL (80.0-98.0); Mean Platelet Volume 9.4 fL (9.4-12.3); Platelet Count 105 X10*3/uL (160-400); Red Blood Count 3.36 X10*6/uL (4.20-5.50); Red Cell Distribution Width 13.4 % (11.0-16.0); White Blood Count 4.4 X10*3/uL (4.8-10.8)
[2021-12-14 07:47] LABS: Anion Gap 19 (12-20); Blood Urea Nitrogen 33 mg/dL (9-16); Calcium 9.1 mg/dL (8.4-10.2); Carbon Dioxide 30 mmol/L (22-29); Chloride 97 mmol/L (96-108); Estimated Glomerular Filt Rate 32; Glucose Random 223 mg/dL (60-115); Potassium 5.1 mmol/L (3.3-5.1); Sodium 141 mmol/L (135-145)
== END 2021-12-14 06:58 | disposition home or self-care (01) ==
LOC: HO.MMNH1L 06:57
PROVIDERS: Visit Provider Family Medicine
DX: M51.36 Other intervertebral disc degeneration, lumbar region (principal); Z86.16 Personal history of COVID-19
CPT/HCPCS: 36415; 80048; 85027

== ENCOUNTER 2021-12-18 10:08 | Outpatient (REF) | payer OTHER, SELFPAY ==
--- NOTE | ~2021-12-18 | US_ITS ---
EXAMINATION: US ABDOMEN COMPLETE CLINICAL INFORMATION: Unspecified cirrhosis of liver. COMPARISON: CT abdomen and pelvis 06/27/2019 and 08/20/2018. Ultrasound abdomen complete 10/04/2017 and 02/28/2012. TECHNIQUE: Real-time imaging of the abdominal viscera. FINDINGS: PANCREAS: There is a 1.1 x 1.3 x 1.1 cm cystic appearing lesion along the superior aspect of the proximal pancreas, previously measuring up to 1.[address] from 08/20/2018. The main pancreatic duct measures 0.3 cm in diameter. ABDOMINAL AORTA: Not well visualized due to shadowing from overlying bowel gas. INFERIOR VENA CAVA: Visualized portions are normal. LIVER: The liver is normal in size. Increased parenchymal echogenicity with nodular contour. No focal hepatic lesion. There is no intrahepatic biliary duct dilatation seen. GALLBLADDER: Hyperechoic content layering in the lumen, possibly stones versus sludge. Negative Mason's sign. The gallbladder is physiologically distended. No evidence of gallbladder wall thickening or pericholecystic fluid. COMMON BILE DUCT: Normal in caliber measuring 0.4 cm in diameter. RIGHT KIDNEY: There is a 3.6 cm simple cyst in the lower pole, for which no imaging follow-up is recommended. No hydronephrosis or renal calculi. The kidney measures 9.1 cm in maximum dimension. LEFT KIDNEY: Normal. No hydronephrosis. No renal calculi or focal parenchymal lesions. The kidney measures 9.8 cm in maximum dimension. SPLEEN: Enlarged. The spleen measures 12.9 cm in maximum dimension. FREE FLUID: None. ADDITIONAL FINDINGS: The main portal vein appears prominent measuring 17 mm in diameter. US/US abdomen complete IMPRESSION: 1. Increased parenchymal echogenicity of the liver with nodular contour most suggestive of cirrhosis. 2. Splenomegaly and prominent main portal vein, raising the possibility of portal hypertension. 3. Cholelithiasis and gallbladder sludge but no sonographic evidence of acute cholecystitis. 4. There is a 1.3 cm cystic appearing lesion in the proximal aspect of the pancreas, previously measured 1.[address] from 08/20/2018. This could be further evaluated with a contrast-enhanced pancreatic MR protocol/MRCP.
== END 2021-12-18 10:09 | disposition home or self-care (01) ==
LOC: HO.US 10:08
PROVIDERS: Visit Provider Internal Medicine
DX: K74.60 Unspecified cirrhosis of liver (principal)
CPT/HCPCS: 76700

== ENCOUNTER 2021-12-21 06:17 | Outpatient (REF) | payer OTHER, SELFPAY ==
[2021-12-21 06:33] LABS: MANUAL DIFF FLAG NO
[2021-12-21 06:51] LABS: Basophils Percent Auto 0.5 % (0-2); Eosinophils Absolute Auto 0.1 X10*3/uL (0.0-0.4); Eosinophils Percent Auto 1.3 % (0-4); Hematocrit 31.6 % (37.0-47.0); Imm Gran Abs Auto 0.01 X10*3/uL (0.00-0.03); Imm Gran Pct Auto 0.3 % (0.0-0.4); Lymphocytes Absolute Auto 0.6 X10*3/uL (1.2-4.9); Lymphocytes Percent Auto 15.9 % (20-40); Mean Corpuscular HGB Conc 31.6 g/dl (31.0-35.0); Mean Corpuscular Volume 97.8 fL (80.0-98.0); Mean Platelet Volume 9.5 fL (9.4-12.3); Monocytes Absolute Auto 0.4 X10*3/uL (0.1-1.2); Monocytes Percent Auto 10.1 % (2-11); Neutrophils Absolute Auto 2.8 x10*3/uL (2.0-8.3); Neutrophils Percent Auto 71.9 % (45-73); Platelet Count 103 X10*3/uL (160-400); Red Blood Count 3.23 X10*6/uL (4.20-5.50); Red Cell Distribution Width 13.7 % (11.0-16.0)
[2021-12-21 07:59] LABS: Anion Gap 16 (12-20); Blood Urea Nitrogen 33 mg/dL (9-16); Calcium 9.2 mg/dL (8.4-10.2); Carbon Dioxide 31 mmol/L (22-29); Chloride 98 mmol/L (96-108); Estimated Glomerular Filt Rate 34; Glucose Random 448 mg/dL (60-115); Potassium 4.7 mmol/L (3.3-5.1); Sodium 140 mmol/L (135-145)
== END 2021-12-21 06:18 | disposition home or self-care (01) ==
LOC: HO.MMNH1L 06:17
PROVIDERS: Visit Provider Family Medicine
DX: M51.36 Other intervertebral disc degeneration, lumbar region (principal); Z86.16 Personal history of COVID-19
CPT/HCPCS: 36415; 80048; 85025

== ENCOUNTER 2021-12-28 05:41 | Outpatient (REF) | payer OTHER, SELFPAY ==
[2021-12-28 05:48] LABS: MANUAL DIFF FLAG NO
[2021-12-28 06:23] LABS: Basophils Percent Auto 0.4 % (0-2); Eosinophils Absolute Auto 0.1 X10*3/uL (0.0-0.4); Eosinophils Percent Auto 1.8 % (0-4); Hematocrit 33.7 % (37.0-47.0); Hemoglobin 10.6 g/dl (12.0-16.0); Imm Gran Abs Auto 0.02 X10*3/uL (0.00-0.03); Imm Gran Pct Auto 0.4 % (0.0-0.4); Lymphocytes Absolute Auto 0.9 X10*3/uL (1.2-4.9); Lymphocytes Percent Auto 15.8 % (20-40); Mean Corpuscular HGB Conc 31.5 g/dl (31.0-35.0); Mean Corpuscular Hemoglobin 31.1 pg (27.0-33.0); Mean Corpuscular Volume 98.8 fL (80.0-98.0); Monocytes Absolute Auto 0.5 X10*3/uL (0.1-1.2); Monocytes Percent Auto 9.8 % (2-11); Neutrophils Percent Auto 71.8 % (45-73); Platelet Count 114 X10*3/uL (160-400); Red Blood Count 3.41 X10*6/uL (4.20-5.50); Red Cell Distribution Width 13.8 % (11.0-16.0); White Blood Count 5.5 X10*3/uL (4.8-10.8)
[2021-12-28 06:57] LABS: Anion Gap 20 (12-20); Blood Urea Nitrogen 34 mg/dL (9-16); Calcium 9.1 mg/dL (8.4-10.2); Carbon Dioxide 26 mmol/L (22-29); Chloride 100 mmol/L (96-108); Estimated Glomerular Filt Rate 32; Glucose Random 282 mg/dL (60-115); Potassium 4.5 mmol/L (3.3-5.1); Sodium 141 mmol/L (135-145)
== END 2021-12-28 05:42 | disposition home or self-care (01) ==
LOC: HO.MMNH1L 05:41
PROVIDERS: Visit Provider Family Medicine
DX: M51.36 Other intervertebral disc degeneration, lumbar region (principal); Z86.16 Personal history of COVID-19
CPT/HCPCS: 36415; 80048; 85025

== ENCOUNTER 2022-01-04 06:41 | Outpatient (REF) | payer OTHER, SELFPAY ==
[2022-01-04 06:56] LABS: Hematocrit 34.5 % (37.0-47.0); Hemoglobin 11.2 g/dl (12.0-16.0); Mean Corpuscular HGB Conc 32.5 g/dl (31.0-35.0); Mean Corpuscular Hemoglobin 31.6 pg (27.0-33.0); Mean Corpuscular Volume 97.5 fL (80.0-98.0); Mean Platelet Volume 9.9 fL (9.4-12.3); Platelet Count 138 X10*3/uL (160-400); Red Blood Count 3.54 X10*6/uL (4.20-5.50)
[2022-01-04 07:39] LABS: Anion Gap 17 (12-20); Blood Urea Nitrogen 31 mg/dL (9-16); Calcium 9.4 mg/dL (8.4-10.2); Carbon Dioxide 29 mmol/L (22-29); Chloride 99 mmol/L (96-108); Estimated Glomerular Filt Rate 33; Glucose Random 316 mg/dL (60-115); Potassium 5.1 mmol/L (3.3-5.1); Sodium 140 mmol/L (135-145)
== END 2022-01-04 06:42 | disposition home or self-care (01) ==
LOC: HO.MMNH1L 06:41
PROVIDERS: Visit Provider Family Medicine
DX: M51.36 Other intervertebral disc degeneration, lumbar region (principal); Z86.16 Personal history of COVID-19
CPT/HCPCS: 36415; 80048; 85027

== ENCOUNTER 2022-01-11 06:29 | Outpatient (REF) | payer OTHER, SELFPAY ==
[2022-01-11 06:30] LABS: Hematocrit 35.3 % (37.0-47.0); Hemoglobin 11.3 g/dl (12.0-16.0); Mean Corpuscular Hemoglobin 31.2 pg (27.0-33.0); Mean Corpuscular Volume 97.5 fL (80.0-98.0); Mean Platelet Volume 9.2 fL (9.4-12.3); Platelet Count 148 X10*3/uL (160-400); Red Blood Count 3.62 X10*6/uL (4.20-5.50); Red Cell Distribution Width 14.1 % (11.0-16.0); White Blood Count 6.8 X10*3/uL (4.8-10.8)
[2022-01-11 07:01] LABS: Anion Gap 18 (12-20); Blood Urea Nitrogen 33 mg/dL (9-16); Calcium 9.6 mg/dL (8.4-10.2); Carbon Dioxide 27 mmol/L (22-29); Chloride 101 mmol/L (96-108); Estimated Glomerular Filt Rate 26; Glucose Random 104 mg/dL (60-115); Potassium 5.3 mmol/L (3.3-5.1); Sodium 141 mmol/L (135-145)
== END 2022-01-11 06:30 | disposition home or self-care (01) ==
LOC: HO.MMNH1L 06:29
PROVIDERS: Visit Provider Family Medicine
DX: I83.11 Varicose veins of right lower extremity with inflammation (principal); M51.36 Other intervertebral disc degeneration, lumbar region; Z86.16 Personal history of COVID-19
CPT/HCPCS: 36415; 80048; 85027; 99212

== ENCOUNTER 2022-01-18 07:17 | Outpatient (REF) | payer OTHER, SELFPAY ==
[2022-01-18 07:33] LABS: Hemoglobin 11.7 g/dl (12.0-16.0); Mean Corpuscular HGB Conc 31.6 g/dl (31.0-35.0); Mean Corpuscular Hemoglobin 31.3 pg (27.0-33.0); Mean Corpuscular Volume 98.9 fL (80.0-98.0); Mean Platelet Volume 9.7 fL (9.4-12.3); Platelet Count 180 X10*3/uL (160-400); Red Blood Count 3.74 X10*6/uL (4.20-5.50); Red Cell Distribution Width 14.1 % (11.0-16.0); White Blood Count 6.7 X10*3/uL (4.8-10.8)
[2022-01-18 08:16] LABS: Anion Gap 16 (12-20); Blood Urea Nitrogen 29 mg/dL (9-16); Calcium 9.9 mg/dL (8.4-10.2); Carbon Dioxide 32 mmol/L (22-29); Chloride 97 mmol/L (96-108); Estimated Glomerular Filt Rate 31; Glucose Random 172 mg/dL (60-115); Sodium 140 mmol/L (135-145)
== END 2022-01-18 07:18 | disposition home or self-care (01) ==
LOC: HO.MMNH3L 07:17
PROVIDERS: Visit Provider Family Medicine
DX: M51.36 Other intervertebral disc degeneration, lumbar region (principal); K74.60 Unspecified cirrhosis of liver; Z86.16 Personal history of COVID-19
CPT/HCPCS: 36415; 80048; 85027

== ENCOUNTER 2022-01-25 07:16 | Outpatient (REF) | payer OTHER, SELFPAY ==
[2022-01-25 07:09] LABS: MANUAL DIFF FLAG NO
[2022-01-25 07:47] LABS: Basophils Percent Auto 0.4 % (0-2); Eosinophils Absolute Auto 0.1 X10*3/uL (0.0-0.4); Eosinophils Percent Auto 1.1 % (0-4); Hematocrit 36.1 % (37.0-47.0); Hemoglobin 11.1 g/dl (12.0-16.0); Imm Gran Abs Auto 0.03 X10*3/uL (0.00-0.03); Imm Gran Pct Auto 0.4 % (0.0-0.4); Lymphocytes Absolute Auto 1.4 X10*3/uL (1.2-4.9); Lymphocytes Percent Auto 19.5 % (20-40); Mean Corpuscular HGB Conc 30.7 g/dl (31.0-35.0); Mean Corpuscular Hemoglobin 30.7 pg (27.0-33.0); Mean Platelet Volume 9.8 fL (9.4-12.3); Monocytes Absolute Auto 0.5 X10*3/uL (0.1-1.2); Monocytes Percent Auto 7.4 % (2-11); Neutrophils Percent Auto 71.2 % (45-73); Platelet Count 158 X10*3/uL (160-400); Red Blood Count 3.61 X10*6/uL (4.20-5.50); Red Cell Distribution Width 14.2 % (11.0-16.0)
[2022-01-25 08:21] LABS: Anion Gap 17 (12-20); Blood Urea Nitrogen 38 mg/dL (9-16); Calcium 9.3 mg/dL (8.4-10.2); Carbon Dioxide 31 mmol/L (22-29); Chloride 101 mmol/L (96-108); Estimated Glomerular Filt Rate 35; Glucose Random 168 mg/dL (60-115); Potassium 4.9 mmol/L (3.3-5.1); Sodium 144 mmol/L (135-145)
== END 2022-01-25 07:17 | disposition home or self-care (01) ==
LOC: HO.MMNH3L 07:16
PROVIDERS: Visit Provider Family Medicine
DX: M51.36 Other intervertebral disc degeneration, lumbar region (principal); Z86.16 Personal history of COVID-19
CPT/HCPCS: 36415; 80048; 85025

== ENCOUNTER 2022-02-01 07:58 | Outpatient (REF) | payer OTHER, SELFPAY ==
[2022-02-01 07:10] LABS: MANUAL DIFF FLAG NO
[2022-02-01 07:53] LABS: Basophils Percent Auto 0.6 % (0-2); Eosinophils Absolute Auto 0.1 X10*3/uL (0.0-0.4); Eosinophils Percent Auto 1.9 % (0-4); Hematocrit 35.8 % (37.0-47.0); Hemoglobin 11.3 g/dl (12.0-16.0); Imm Gran Abs Auto 0.02 X10*3/uL (0.00-0.03); Imm Gran Pct Auto 0.3 % (0.0-0.4); Lymphocytes Absolute Auto 1.4 X10*3/uL (1.2-4.9); Lymphocytes Percent Auto 21.9 % (20-40); Mean Corpuscular HGB Conc 31.6 g/dl (31.0-35.0); Mean Corpuscular Hemoglobin 30.8 pg (27.0-33.0); Mean Corpuscular Volume 97.5 fL (80.0-98.0); Mean Platelet Volume 9.3 fL (9.4-12.3); Monocytes Absolute Auto 0.7 X10*3/uL (0.1-1.2); Monocytes Percent Auto 10.2 % (2-11); Neutrophils Absolute Auto 4.1 x10*3/uL (2.0-8.3); Neutrophils Percent Auto 65.1 % (45-73); Platelet Count 179 X10*3/uL (160-400); Red Blood Count 3.67 X10*6/uL (4.20-5.50); Red Cell Distribution Width 14.6 % (11.0-16.0); White Blood Count 6.4 X10*3/uL (4.8-10.8)
[2022-02-01 08:15] LABS: Anion Gap 15 (12-20); Blood Urea Nitrogen 37 mg/dL (9-16); Calcium 9.8 mg/dL (8.4-10.2); Carbon Dioxide 33 mmol/L (22-29); Chloride 96 mmol/L (96-108); Estimated Glomerular Filt Rate 29; Glucose Random 159 mg/dL (60-115); Potassium 4.9 mmol/L (3.3-5.1); Sodium 139 mmol/L (135-145)
== END 2022-02-01 07:59 | disposition home or self-care (01) ==
LOC: HO.MMNH3L 07:58
PROVIDERS: Visit Provider Family Medicine
DX: M51.36 Other intervertebral disc degeneration, lumbar region (principal); Z86.16 Personal history of COVID-19
CPT/HCPCS: 36415; 80048; 85025

== ENCOUNTER 2022-02-08 06:59 | Outpatient (REF) | payer OTHER, SELFPAY ==
[2022-02-08 06:40] LABS: MANUAL DIFF FLAG NO
[2022-02-08 07:41] LABS: Anion Gap 19 (12-20); Blood Urea Nitrogen 40 mg/dL (9-16); Calcium 9.3 mg/dL (8.4-10.2); Carbon Dioxide 29 mmol/L (22-29); Chloride 103 mmol/L (96-108); Estimated Glomerular Filt Rate 36; Glucose Random 82 mg/dL (60-115); Potassium 5.2 mmol/L (3.3-5.1); Sodium 146 mmol/L (135-145)
[2022-02-08 07:43] LABS: Basophils Percent Auto 0.7 % (0-2); Eosinophils Absolute Auto 0.1 X10*3/uL (0.0-0.4); Eosinophils Percent Auto 1.8 % (0-4); Hemoglobin 10.1 g/dl (12.0-16.0); Imm Gran Abs Auto 0.01 X10*3/uL (0.00-0.03); Imm Gran Pct Auto 0.2 % (0.0-0.4); Lymphocytes Absolute Auto 1.1 X10*3/uL (1.2-4.9); Mean Corpuscular HGB Conc 31.6 g/dl (31.0-35.0); Mean Corpuscular Hemoglobin 30.9 pg (27.0-33.0); Mean Corpuscular Volume 97.9 fL (80.0-98.0); Mean Platelet Volume 9.5 fL (9.4-12.3); Monocytes Absolute Auto 0.4 X10*3/uL (0.1-1.2); Monocytes Percent Auto 9.6 % (2-11); Neutrophils Absolute Auto 2.7 x10*3/uL (2.0-8.3); Neutrophils Percent Auto 61.7 % (45-73); Platelet Count 123 X10*3/uL (160-400); Red Blood Count 3.27 X10*6/uL (4.20-5.50); Red Cell Distribution Width 14.6 % (11.0-16.0); White Blood Count 4.4 X10*3/uL (4.8-10.8)
== END 2022-02-08 07:00 | disposition home or self-care (01) ==
LOC: HO.MMNH3L 06:59
PROVIDERS: Visit Provider Family Medicine
DX: M51.36 Other intervertebral disc degeneration, lumbar region (principal); Z86.16 Personal history of COVID-19
CPT/HCPCS: 36415; 80048; 85025

== ENCOUNTER → 2022-02-10 12:58 | Outpatient (BNVA) | payer OTHER, SELFPAY | PROVIDERS: PCP Internal Medicine; Visit Provider Internal Medicine | DX: K74.60 Unspecified cirrhosis of liver (principal); K64.9 Unspecified hemorrhoids | CPT/HCPCS: 99212 ==

== ENCOUNTER 2022-02-15 06:28 | Outpatient (REF) | payer OTHER, SELFPAY ==
[2022-02-15 06:29] LABS: MANUAL DIFF FLAG NO
[2022-02-15 07:08] LABS: Basophils Percent Auto 0.6 % (0-2); Eosinophils Absolute Auto 0.1 X10*3/uL (0.0-0.4); Eosinophils Percent Auto 2.7 % (0-4); Hematocrit 34.2 % (37.0-47.0); Hemoglobin 10.5 g/dl (12.0-16.0); Imm Gran Abs Auto 0.02 X10*3/uL (0.00-0.03); Imm Gran Pct Auto 0.4 % (0.0-0.4); Lymphocytes Absolute Auto 1.2 X10*3/uL (1.2-4.9); Lymphocytes Percent Auto 22.3 % (20-40); Mean Corpuscular HGB Conc 30.7 g/dl (31.0-35.0); Mean Corpuscular Hemoglobin 30.7 pg (27.0-33.0); Mean Platelet Volume 9.4 fL (9.4-12.3); Monocytes Absolute Auto 0.4 X10*3/uL (0.1-1.2); Monocytes Percent Auto 8.4 % (2-11); Neutrophils Absolute Auto 3.4 x10*3/uL (2.0-8.3); Neutrophils Percent Auto 65.6 % (45-73); Platelet Count 143 X10*3/uL (160-400); Red Blood Count 3.42 X10*6/uL (4.20-5.50); Red Cell Distribution Width 14.6 % (11.0-16.0); White Blood Count 5.2 X10*3/uL (4.8-10.8)
[2022-02-15 07:36] LABS: Anion Gap 16 (12-20); Blood Urea Nitrogen 32 mg/dL (9-16); Calcium 9.2 mg/dL (8.4-10.2); Carbon Dioxide 29 mmol/L (22-29); Chloride 102 mmol/L (96-108); Estimated Glomerular Filt Rate 31; Glucose Random 152 mg/dL (60-115); Potassium 4.7 mmol/L (3.3-5.1); Sodium 142 mmol/L (135-145)
== END 2022-02-15 06:29 | disposition home or self-care (01) ==
LOC: HO.MMNH3L 06:28
PROVIDERS: Visit Provider Family Medicine
DX: M51.36 Other intervertebral disc degeneration, lumbar region (principal); Z86.16 Personal history of COVID-19
CPT/HCPCS: 36415; 80048; 85025

== ENCOUNTER 2022-02-22 06:25 | Outpatient (REF) | payer OTHER, SELFPAY ==
[2022-02-22 06:23] LABS: MANUAL DIFF FLAG NO
[2022-02-22 06:42] LABS: Basophils Percent Auto 0.8 % (0-2); Eosinophils Absolute Auto 0.1 X10*3/uL (0.0-0.4); Eosinophils Percent Auto 2.6 % (0-4); Hematocrit 32.3 % (37.0-47.0); Hemoglobin 10.3 g/dl (12.0-16.0); Imm Gran Abs Auto 0.01 X10*3/uL (0.00-0.03); Imm Gran Pct Auto 0.2 % (0.0-0.4); Lymphocytes Percent Auto 20.6 % (20-40); Mean Corpuscular HGB Conc 31.9 g/dl (31.0-35.0); Mean Corpuscular Hemoglobin 31.4 pg (27.0-33.0); Mean Corpuscular Volume 98.5 fL (80.0-98.0); Monocytes Absolute Auto 0.5 X10*3/uL (0.1-1.2); Monocytes Percent Auto 9.8 % (2-11); Neutrophils Absolute Auto 3.3 x10*3/uL (2.0-8.3); Platelet Count 135 X10*3/uL (160-400); Red Blood Count 3.28 X10*6/uL (4.20-5.50); Red Cell Distribution Width 14.5 % (11.0-16.0)
[2022-02-22 07:19] LABS: Anion Gap 16 (12-20); Blood Urea Nitrogen 35 mg/dL (9-16); Calcium 9.5 mg/dL (8.4-10.2); Carbon Dioxide 31 mmol/L (22-29); Chloride 102 mmol/L (96-108); Estimated Glomerular Filt Rate 36; Glucose Random 229 mg/dL (60-115); Potassium 4.8 mmol/L (3.3-5.1); Sodium 144 mmol/L (135-145)
== END 2022-02-22 06:26 | disposition home or self-care (01) ==
LOC: HO.MMNH3L 06:25
PROVIDERS: Visit Provider Family Medicine
DX: M51.36 Other intervertebral disc degeneration, lumbar region (principal); Z86.16 Personal history of COVID-19
CPT/HCPCS: 36415; 80048; 85025

== ENCOUNTER 2022-02-25 12:42 | Outpatient (REF) | payer OTHER, SELFPAY ==
--- NOTE | ~2022-02-25 | US_ITS ---
EXAMINATION: US LOWER EXTREMITY VENOUS (REFLUX EXAM), BILATERAL CLINICAL INDICATION: Varicose veins COMPARISON: Bilateral lower extremity duplex on 12/20/2020 TECHNIQUE: Color flow triplex imaging and compression Doppler was performed to evaluate both the deep and the superficial systems bilaterally. To evaluate the superficial system, the examination was performed in the upright position. Color-flow Doppler ultrasound and compression ultrasound were utilized. In addition, maneuvers were utilized to demonstrate reflux. FINDINGS: 1. DEEP VENOUS ULTRASOUND OF THE RIGHT LOWER EXTREMITY: Common Femoral Vein: Compressible, normal respiratory variation and augmented flow. Femoral Vein: Compressible, normal color flow and augmentation. Popliteal Vein: Compressible, normal augmentation. Deep Reflux: There is no evidence of reflux in the deep system in either the common femoral vein or the popliteal vein. There is no evidence of a Blount's cyst. 2. SUPERFICIAL ULTRASOUND WITH DOPPLER OF RIGHT LOWER EXTREMITY: GREAT SAPHENOUS VEIN: Saphenofemoral Junction: 1.0 cm; Reflux: 0 ms Proximal Thigh: 0.6 cm; Reflux: 0 ms Mid Thigh: 0.2 cm; Reflux: 0 ms Above Knee: 0.2 cm; Reflux: 0 ms At Knee: 0.3 cm; Reflux: 0 ms Below Knee: 0.2 cm; Reflux: 0 ms Mid Calf: 0.2 cm; Reflux: 1248 ms Ankle: 0.2 cm; Reflux: 0 ms DUPLICATED MEDIAL GREAT SAPHENOUS VEIN: Diameter: None Imaged Reflux: NA DUPLICATED LATERAL GREAT SAPHENOUS VEIN: Diameter: 0.2cm Reflux: NA SMALL SAPHENOUS VEIN: Proximal: 0.2 cm; Reflux: 0 ms Distal: 0.2 cm; Reflux: 0 ms VEIN OF GIACOMINI: None Imaged. PERFORATORS: Location: None Imaged Size: NA Reflux: NA VARICOSITIES: Location: None Imaged Size: NA Reflux: NA 3. DEEP VENOUS ULTRASOUND OF THE LEFT LOWER EXTREMITY: Common Femoral Vein: Compressible, normal respiratory variation and augmented flow. Femoral Vein: Compressible, normal color flow and augmentation. Popliteal Vein: Compressible, normal augmentation. Deep Reflux: There is no evidence of reflux in the deep system in either the common femoral vein or the popliteal vein. There is no evidence of a Blount's cyst. 4. SUPERFICIAL ULTRASOUND WITH DOPPLER OF LEFT LOWER EXTREMITY: GREAT SAPHENOUS VEIN: Saphenofemoral Junction: 0.7 cm; Reflux: 0 ms Proximal Thigh: 0.5 cm; Reflux: 0 ms Mid Thigh: 0.3 cm; Reflux: 0 ms Above Knee: 0.2 cm; Reflux: 0 ms At Knee: 0.3 cm; Reflux: 0 ms Below Knee: 0.2 cm; Reflux: 0 ms Mid Calf: 0.2 cm; Reflux: 0 ms Ankle: 0.1 cm; Reflux: 0 ms DUPLICATED MEDIAL GREAT SAPHENOUS VEIN: Diameter: None Imaged Reflux: NA DUPLICATED LATERAL GREAT SAPHENOUS VEIN: Diameter: 0.2 cm Reflux: NA SMALL SAPHENOUS VEIN: Proximal: 0.2 cm; Reflux: 0 ms Distal: 0.1 cm; Reflux: 0 ms VEIN OF GIACOMINI: None Imaged. PERFORATORS: Location: None Imaged Size: NA Reflux: NA VARICOSITIES: Location: None Imaged Size: NA Reflux: NA US/US venous duplex LE BI IMPRESSION: 1. Right great saphenous vein reflux at the mid calf. 2. No left great saphenous venous insufficiency. 3. No significant reflux in the bilateral small saphenous veins.
== END 2022-02-25 12:43 | disposition home or self-care (01) ==
LOC: HO.US 12:42
PROVIDERS: PCP Internal Medicine; Visit Provider Surgery Vascular Surgery
DX: I83.893 Varicose veins of bilateral lower extremities with other complications (principal)
CPT/HCPCS: 93970

== ENCOUNTER 2022-03-01 06:01 | Outpatient (REF) | payer OTHER, SELFPAY ==
[2022-03-01 05:52] LABS: MANUAL DIFF FLAG NO
[2022-03-01 06:15] LABS: Basophils Percent Auto 0.5 % (0-2); Eosinophils Absolute Auto 0.1 X10*3/uL (0.0-0.4); Eosinophils Percent Auto 2.3 % (0-4); Hematocrit 33.9 % (37.0-47.0); Hemoglobin 10.6 g/dl (12.0-16.0); Imm Gran Abs Auto 0.01 X10*3/uL (0.00-0.03); Imm Gran Pct Auto 0.2 % (0.0-0.4); Lymphocytes Absolute Auto 1.2 X10*3/uL (1.2-4.9); Lymphocytes Percent Auto 20.8 % (20-40); Mean Corpuscular HGB Conc 31.3 g/dl (31.0-35.0); Mean Corpuscular Hemoglobin 31.4 pg (27.0-33.0); Mean Corpuscular Volume 100.3 fL (80.0-98.0); Mean Platelet Volume 9.9 fL (9.4-12.3); Monocytes Absolute Auto 0.5 X10*3/uL (0.1-1.2); Monocytes Percent Auto 8.4 % (2-11); Neutrophils Absolute Auto 3.8 x10*3/uL (2.0-8.3); Neutrophils Percent Auto 67.8 % (45-73); Platelet Count 146 X10*3/uL (160-400); Red Blood Count 3.38 X10*6/uL (4.20-5.50); Red Cell Distribution Width 14.3 % (11.0-16.0); White Blood Count 5.6 X10*3/uL (4.8-10.8)
[2022-03-01 06:47] LABS: Anion Gap 14 (12-20); Blood Urea Nitrogen 32 mg/dL (9-16); Calcium 9.4 mg/dL (8.4-10.2); Carbon Dioxide 29 mmol/L (22-29); Chloride 100 mmol/L (96-108); Estimated Glomerular Filt Rate 31; Glucose Random 254 mg/dL (60-115); Potassium 4.8 mmol/L (3.3-5.1); Sodium 138 mmol/L (135-145)
== END 2022-03-01 06:02 | disposition home or self-care (01) ==
LOC: HO.MMNH3L 06:01
PROVIDERS: Visit Provider Family Medicine
DX: M51.36 Other intervertebral disc degeneration, lumbar region (principal); Z86.16 Personal history of COVID-19
CPT/HCPCS: 36415; 80048; 85025

== ENCOUNTER 2022-03-08 06:36 | Outpatient (REF) | payer OTHER, SELFPAY ==
[2022-03-08 06:23] LABS: MANUAL DIFF FLAG NO
[2022-03-08 07:17] LABS: Basophils Percent Auto 0.6 % (0-2); Eosinophils Absolute Auto 0.1 X10*3/uL (0.0-0.4); Eosinophils Percent Auto 2.6 % (0-4); Hematocrit 30.9 % (37.0-47.0); Hemoglobin 9.8 g/dl (12.0-16.0); Lymphocytes Absolute Auto 1.1 X10*3/uL (1.2-4.9); Lymphocytes Percent Auto 24.5 % (20-40); Mean Corpuscular HGB Conc 31.7 g/dl (31.0-35.0); Mean Corpuscular Hemoglobin 31.3 pg (27.0-33.0); Mean Corpuscular Volume 98.7 fL (80.0-98.0); Mean Platelet Volume 9.4 fL (9.4-12.3); Monocytes Absolute Auto 0.5 X10*3/uL (0.1-1.2); Monocytes Percent Auto 10.1 % (2-11); Neutrophils Absolute Auto 2.9 x10*3/uL (2.0-8.3); Neutrophils Percent Auto 62.2 % (45-73); Platelet Count 128 X10*3/uL (160-400); Red Blood Count 3.13 X10*6/uL (4.20-5.50); Red Cell Distribution Width 14.3 % (11.0-16.0); White Blood Count 4.7 X10*3/uL (4.8-10.8)
[2022-03-08 07:23] LABS: Anion Gap 13 (12-20); Blood Urea Nitrogen 34 mg/dL (9-16); Calcium 9.3 mg/dL (8.4-10.2); Carbon Dioxide 31 mmol/L (22-29); Chloride 104 mmol/L (96-108); Estimated Glomerular Filt Rate 41; Glucose Random 75 mg/dL (60-115); Potassium 4.6 mmol/L (3.3-5.1); Sodium 143 mmol/L (135-145)
== END 2022-03-08 06:37 | disposition home or self-care (01) ==
LOC: HO.MMNH3L 06:36
PROVIDERS: Visit Provider Family Medicine
DX: M51.36 Other intervertebral disc degeneration, lumbar region (principal); Z86.16 Personal history of COVID-19
CPT/HCPCS: 36415; 80048; 85025

== ENCOUNTER 2022-03-15 06:43 | Outpatient (REF) | payer OTHER, SELFPAY ==
[2022-03-15 06:27] LABS: MANUAL DIFF FLAG NO
[2022-03-15 07:17] LABS: Basophils Percent Auto 0.6 % (0-2); Eosinophils Absolute Auto 0.1 X10*3/uL (0.0-0.4); Eosinophils Percent Auto 2.8 % (0-4); Hematocrit 33.6 % (37.0-47.0); Hemoglobin 10.4 g/dl (12.0-16.0); Imm Gran Abs Auto 0.01 X10*3/uL (0.00-0.03); Imm Gran Pct Auto 0.2 % (0.0-0.4); Lymphocytes Absolute Auto 1.2 X10*3/uL (1.2-4.9); Lymphocytes Percent Auto 25.1 % (20-40); Mean Corpuscular Volume 100.3 fL (80.0-98.0); Mean Platelet Volume 9.9 fL (9.4-12.3); Monocytes Absolute Auto 0.4 X10*3/uL (0.1-1.2); Monocytes Percent Auto 8.9 % (2-11); Neutrophils Absolute Auto 2.9 x10*3/uL (2.0-8.3); Neutrophils Percent Auto 62.4 % (45-73); Platelet Count 158 X10*3/uL (160-400); Red Blood Count 3.35 X10*6/uL (4.20-5.50); Red Cell Distribution Width 14.2 % (11.0-16.0); White Blood Count 4.7 X10*3/uL (4.8-10.8)
[2022-03-15 07:32] LABS: Anion Gap 19 (12-20); Blood Urea Nitrogen 36 mg/dL (9-16); Calcium 9.6 mg/dL (8.4-10.2); Carbon Dioxide 31 mmol/L (22-29); Chloride 100 mmol/L (96-108); Estimated Glomerular Filt Rate 34; Glucose Random 158 mg/dL (60-115); Potassium 4.8 mmol/L (3.3-5.1); Sodium 145 mmol/L (135-145)
== END 2022-03-15 06:44 | disposition home or self-care (01) ==
LOC: HO.MMNH3L 06:43
PROVIDERS: Visit Provider Family Medicine
DX: M51.36 Other intervertebral disc degeneration, lumbar region (principal); Z86.16 Personal history of COVID-19
CPT/HCPCS: 36415; 80048; 85025

== ENCOUNTER 2022-03-22 07:07 | Outpatient (REF) | payer OTHER, SELFPAY ==
[2022-03-22 06:51] LABS: MANUAL DIFF FLAG NO
[2022-03-22 07:37] LABS: Basophils Percent Auto 0.6 % (0-2); Eosinophils Absolute Auto 0.2 X10*3/uL (0.0-0.4); Eosinophils Percent Auto 3.1 % (0-4); Hematocrit 30.9 % (37.0-47.0); Hemoglobin 9.6 g/dl (12.0-16.0); Imm Gran Abs Auto 0.01 X10*3/uL (0.00-0.03); Imm Gran Pct Auto 0.2 % (0.0-0.4); Lymphocytes Absolute Auto 1.1 X10*3/uL (1.2-4.9); Lymphocytes Percent Auto 22.4 % (20-40); Mean Corpuscular HGB Conc 31.1 g/dl (31.0-35.0); Mean Corpuscular Hemoglobin 31.2 pg (27.0-33.0); Mean Corpuscular Volume 100.3 fL (80.0-98.0); Mean Platelet Volume 9.7 fL (9.4-12.3); Monocytes Absolute Auto 0.5 X10*3/uL (0.1-1.2); Monocytes Percent Auto 10.6 % (2-11); Neutrophils Absolute Auto 3.1 x10*3/uL (2.0-8.3); Neutrophils Percent Auto 63.1 % (45-73); Platelet Count 138 X10*3/uL (160-400); Red Blood Count 3.08 X10*6/uL (4.20-5.50); Red Cell Distribution Width 14.2 % (11.0-16.0); White Blood Count 4.9 X10*3/uL (4.8-10.8)
[2022-03-22 08:15] LABS: Anion Gap 17 (12-20); Blood Urea Nitrogen 38 mg/dL (9-16); Calcium 9.3 mg/dL (8.4-10.2); Carbon Dioxide 31 mmol/L (22-29); Chloride 102 mmol/L (96-108); Estimated Glomerular Filt Rate 30; Glucose Random 132 mg/dL (60-115); Potassium 4.7 mmol/L (3.3-5.1); Sodium 145 mmol/L (135-145)
== END 2022-03-22 07:08 | disposition home or self-care (01) ==
LOC: HO.MMNH3L 07:07
PROVIDERS: Visit Provider Family Medicine
DX: M51.36 Other intervertebral disc degeneration, lumbar region (principal); Z86.16 Personal history of COVID-19
CPT/HCPCS: 36415; 80048; 85025

== ENCOUNTER 2022-03-29 06:44 | Outpatient (REF) | payer OTHER, SELFPAY ==
[2022-03-29 06:40] LABS: MANUAL DIFF FLAG NO
[2022-03-29 07:20] LABS: Basophils Absolute Auto 0.1 X10*3/uL (0.0-0.2); Basophils Percent Auto 0.8 % (0-2); Eosinophils Absolute Auto 0.2 X10*3/uL (0.0-0.4); Eosinophils Percent Auto 2.7 % (0-4); Hematocrit 32.3 % (37.0-47.0); Hemoglobin 10.1 g/dl (12.0-16.0); Imm Gran Abs Auto 0.01 X10*3/uL (0.00-0.03); Imm Gran Pct Auto 0.2 % (0.0-0.4); Lymphocytes Absolute Auto 1.4 X10*3/uL (1.2-4.9); Lymphocytes Percent Auto 21.9 % (20-40); Mean Corpuscular HGB Conc 31.3 g/dl (31.0-35.0); Mean Corpuscular Hemoglobin 31.3 pg (27.0-33.0); Mean Platelet Volume 10.1 fL (9.4-12.3); Monocytes Absolute Auto 0.6 X10*3/uL (0.1-1.2); Monocytes Percent Auto 9.6 % (2-11); Neutrophils Absolute Auto 4.1 x10*3/uL (2.0-8.3); Neutrophils Percent Auto 64.8 % (45-73); Platelet Count 146 X10*3/uL (160-400); Red Blood Count 3.23 X10*6/uL (4.20-5.50); White Blood Count 6.3 X10*3/uL (4.8-10.8)
[2022-03-29 07:41] LABS: Anion Gap 17 (12-20); Blood Urea Nitrogen 40 mg/dL (9-16); Calcium 9.6 mg/dL (8.4-10.2); Carbon Dioxide 26 mmol/L (22-29); Chloride 104 mmol/L (96-108); Estimated Glomerular Filt Rate 33; Glucose Random 112 mg/dL (60-115); Sodium 142 mmol/L (135-145)
== END 2022-03-29 06:45 | disposition home or self-care (01) ==
LOC: HO.MMNH3L 06:44
PROVIDERS: Visit Provider Family Medicine
DX: M51.36 Other intervertebral disc degeneration, lumbar region (principal); Z86.16 Personal history of COVID-19
CPT/HCPCS: 36415; 80048; 85025

== ENCOUNTER 2022-04-05 06:38 | Outpatient (REF) | payer OTHER, SELFPAY ==
[2022-04-05 06:25] LABS: MANUAL DIFF FLAG NO
[2022-04-05 07:23] LABS: Basophils Percent Auto 0.7 % (0-2); Eosinophils Absolute Auto 0.2 X10*3/uL (0.0-0.4); Eosinophils Percent Auto 4.1 % (0-4); Hemoglobin 9.4 g/dl (12.0-16.0); Imm Gran Abs Auto 0.02 X10*3/uL (0.00-0.03); Imm Gran Pct Auto 0.4 % (0.0-0.4); Lymphocytes Absolute Auto 1.2 X10*3/uL (1.2-4.9); Lymphocytes Percent Auto 22.8 % (20-40); Mean Corpuscular HGB Conc 31.3 g/dl (31.0-35.0); Mean Corpuscular Hemoglobin 31.2 pg (27.0-33.0); Mean Corpuscular Volume 99.7 fL (80.0-98.0); Mean Platelet Volume 10.2 fL (9.4-12.3); Monocytes Absolute Auto 0.6 X10*3/uL (0.1-1.2); Monocytes Percent Auto 10.8 % (2-11); Neutrophils Absolute Auto 3.3 x10*3/uL (2.0-8.3); Neutrophils Percent Auto 61.2 % (45-73); Platelet Count 145 X10*3/uL (160-400); Red Blood Count 3.01 X10*6/uL (4.20-5.50); Red Cell Distribution Width 14.3 % (11.0-16.0); White Blood Count 5.4 X10*3/uL (4.8-10.8)
[2022-04-05 07:38] LABS: Anion Gap 16 (12-20); Blood Urea Nitrogen 44 mg/dL (9-16); Calcium 9.4 mg/dL (8.4-10.2); Carbon Dioxide 27 mmol/L (22-29); Chloride 102 mmol/L (96-108); Estimated Glomerular Filt Rate 31; Glucose Random 107 mg/dL (60-115); Potassium 4.9 mmol/L (3.3-5.1); Sodium 140 mmol/L (135-145)
== END 2022-04-05 06:39 | disposition home or self-care (01) ==
LOC: HO.MMNH3L 06:38
PROVIDERS: Visit Provider Family Medicine
DX: M51.36 Other intervertebral disc degeneration, lumbar region (principal); Z86.16 Personal history of COVID-19
CPT/HCPCS: 36415; 80048; 85025

== ENCOUNTER 2022-04-11 13:37 | Emergency (ER) | payer OTHER, SELFPAY ==
--- NOTE | ~2022-04-11 | XR_ITS ---
EXAMINATION: XR SHOULDER, RIGHT CLINICAL INFORMATION: Trauma, pain COMPARISON: None TECHNIQUE: AP external rotation, Grashey, scapular Y, and axillary views of the right shoulder. FINDINGS: There is moderate-severe acromioclavicular osteoarthritis. Glenohumeral joint is well preserved. No fracture. Alignment is anatomic. . Diffuse osteopenia. XR/XR shoulder RT min 2V IMPRESSION: Moderate-severe acromioclavicular joint arthritis.
--- NOTE | ~2022-04-11 | CT_ITS ---
EXAMINATION: CT HEAD WITHOUT CONTRAST CT CERVICAL SPINE WITHOUT CONTRAST CLINICAL INFORMATION: Trauma. Pain. COMPARISON: CT head 03/13/2015. TECHNIQUE: Contiguous axial imaging was performed from the skull base to vertex without intravenous administration of contrast. Contiguous axial imaging was performed from the upper chest through the skull base without intravenous administration of contrast. Coronal and sagittal reformats were obtained at the acquisition workstation. This CT examination was performed using dose optimization techniques as appropriate, variously including the following: *Automated exposure control *Adjustment of mA and/or kV according to patient size (this includes techniques or standardized protocols for targeted exams where dose is matched to indication/reason for exam; i.e. extremities or head) *Use of iterative reconstruction technique DLP: 698 and 382 mGy-cm FINDINGS: Head: There is no evidence of acute intracranial hemorrhage or edematous territorial infarction. Scattered hypoattenuation in the periventricular and deep white matter are consistent with moderate microangiopathy. Sage-white matter differentiation is preserved. Proportional prominence of the ventricles and sulcal spaces. No evidence for obstructive hydrocephalus. No abnormal mass effect or midline shift. No extra-axial fluid collections. No acute soft tissue or osseous abnormalities. Mild mucosal thickening of the paranasal sinuses with no air-fluid levels. Small right mastoid effusion. Middle ear cavities are clear. Bilateral lens extraction. Cervical Spine: The atlantooccipital and atlantoaxial articulations remain well aligned. Minimal anterolisthesis of C4 on C5. No evidence of acute compression deformity. Multilevel cervical spondylosis with variously degrees of neural foraminal encroachment. Prominent anterior osteophytes at C6, C7 and T1 indenting upon the posterior esophagus. Degenerative calcifications surrounding the odontoid dens. Incidentally noted left-sided cervical rib fused with the first rib. There is no prevertebral soft tissue swelling. The soft tissues are normal in appearance. The lung apices demonstrate no abnormalities. CT/CT cervical spine wo IV con IMPRESSION: 1. No acute intracranial pathology. 2. Moderate chronic microangiopathy and generalized cerebral volume loss. 3. No acute cervical spinal fractures or malalignment. 4. Multilevel cervical spondylosis.
--- NOTE | ~2022-04-11 | XR_ITS ---
EXAMINATION: XR HIP, RIGHT CLINICAL INFORMATION: Fall and hip pain. COMPARISON: Radiograph of the right hip 12/20/2020. TECHNIQUE: Two views of the right hip. FINDINGS: No acute fractures or malalignment. Moderate degenerative osteoarthritis in both hips. SI joints are symmetric. Pubic symphysis is maintained. No significant soft tissue abnormality. XR/XR hip RT min 2V IMPRESSION: No acute fractures or malalignment. Moderate degenerative osteoarthritis.
--- NOTE | ~2022-04-11 | CT_ITS ---
EXAMINATION: CT THORACIC SPINE WITHOUT CONTRAST CLINICAL INFORMATION: Status post fall COMPARISON: July 08, 2016 TECHNIQUE: CT thoracic spine with coronal and sagittal reconstructions This CT examination was performed using dose optimization techniques as appropriate, variously including the following: *Automated exposure control *Adjustment of mA and/or kV according to patient size (this includes techniques or standardized protocols for targeted exams where dose is matched to indication/reason for exam; i.e. extremities or head) *Use of iterative reconstruction technique DLP: 685.10 mGy-cm FINDINGS: There is osteopenia visualized bones. No acute thoracic spine fractures identified. No significant loss of height of any vertebral bodies is seen. There is some multilevel spurring and bony bridging throughout the thoracic spine and also involving the anterior longitudinal ligament. Paraspinal muscle fat planes are maintained. There is mild scoliosis of the superior thoracic spine convex right. Coronary artery calcifications seen. No significant lung masses appreciated. CT/CT thoracic spine wo IV con IMPRESSION: No acute thoracic spine fracture. Multilevel degenerative disc disease and spurring with bridging of vertebral bodies throughout the thoracic spine. Fleischner guidelines were followed.
--- NOTE | ~2022-04-11 | CT_ITS ---
EXAMINATION: CT LUMBAR SPINE WITHOUT CONTRAST CLINICAL INFORMATION: Pain status post fall. COMPARISON: Plain film study of September 03, [address] of the abdomen of August 20, 2018 TECHNIQUE: CT of the lumbar spine with coronal and sagittal reconstructions. This CT examination was performed using dose optimization techniques as appropriate, variously including the following: *Automated exposure control *Adjustment of mA and/or kV according to patient size (this includes techniques or standardized protocols for targeted exams where dose is matched to indication/reason for exam; i.e. extremities or head) *Use of iterative reconstruction technique DLP; 686.92 mGy-cm FINDINGS: There appears be osteopenia of visualized bones. There appears be mild narrowing of the L3-L4 and L4-L5 disc space levels. No acute fracture is appreciated. Vacuum phenomena is seen at the T12-L1, L1-L2, and L5-S1 levels. Multilevel degenerative marginal spurring is present most prominent at T12-L1, L4-L5, and L5-S1 levels. Facet arthropathy is present bilaterally throughout the lumbar spine right greater than left. There appears to be some neural foraminal narrowing related to bony spurring and disc bulge right L1-L2 level. Calcified plaque is seen within the abdominal aorta. CT/CT lumbar spine wo IV con IMPRESSION: Osteopenia. Multilevel degenerative disc disease and facet arthropathy as described. No acute fracture appreciated.
[2022-04-11 13:46] VITALS: BP 152/92; BP 156/57; PULSE 70; PULSE 76; RESP 16; TEMP 36.5; O2SAT 96; O2SAT 99; BMI 38.2
--- NOTE | 2022-04-11 14:02 | ED.FALL ---
HPI - Fall General Chief Complaint: Fall Stated Complaint: fall Time Seen by Provider: 04/11/22 13:55 Source: patient Mode of arrival: EMS Limitations: no limitations History of Present Illness HPI Narrative: fell at nursing at [facility] from wheelchair she was trying to reach something in the floor no LOC she is c/o back pain and rt shoulder pain complaint: fall Onset (ago): hour(s) (2) Fall from: wheelchair Fall witnessed: yes, by living facility staff Place fall occurred: [facility] and other Loss of consciousness: none Related Data Home Medications Medication Instructions Recorded Confirmed albuterol sulfate 90 mcg/actuation 2 puff inhalation Q4H PRN Wheezing 01/31/20 12/20/20 aerosol inhaler docusate sodium 100 mg capsule 100 mg PO BID PRN Constipation 01/31/20 12/20/20 insulin aspart U-100 100 unit/mL 3 - 9 unit subcut TID 01/31/20 10/30/20 (3 mL) subcutaneous pen lancets 33 gauge #100 ea 01/31/20 10/30/20 insulin glargine 100 unit/mL (3 24 unit subcut QAM 09/15/20 12/20/20 mL) subcutaneous pen (Lantus Solostar U-100 Insulin) calcium carbonate 600 mg-vitamin 1 tab PO BID 11/11/21 D3 10 mcg (400 unit) tablet colchicine 0.6 mg tablet 0.6 mg PO DAILY 11/11/21 spironolactone 25 mg tablet 25 mg PO DAILY 11/11/21 Previous Rx's Medication Instructions Recorded lancets 28 gauge (FreeStyle #100 ea 01/22/20 Lancets) alcohol swabs 1 pad topical TID 67 days #200 ea 07/22/20 triamcinolone acetonide 0.1 % 1 appl topical BID PRN rash 30 07/24/20 topical cream days #80 grams ascorbic acid (vitamin C) 500 mg 500 mg PO BID 90 days #180 tabs 08/19/20 tablet ferrous sulfate 325 mg (65 mg 325 mg PO DAILY 90 days #90 tabs 09/03/20 iron) tablet,delayed release metformin 1,000 mg tablet 1,000 mg PO BID 90 days #180 tabs 09/18/20 gabapentin 800 mg tablet 800 mg PO .every 6 hours 30 days 09/25/20 #120 tabs pen needle, diabetic 32 gauge x #50 ea 09/25/20 5/32 furosemide 20 mg tablet 20 mg PO BID 30 days #60 tabs 09/28/20 albuterol sulfate 2.5 mg/3 mL 2.5 mg (3 mL) inhalation TID 30 10/14/20 (0.083 %) solution for nebulization days #270 mL liraglutide 0.6 mg/0.1 mL (18 mg/3 1.8 mg (0.3 mL) subcut DAILY 30 10/15/20 mL) subcutaneous pen injector days #9 mL (Victoza 3-Aric) atorvastatin 20 mg tablet 20 mg PO DAILY 90 days #90 tabs 10/18/20 montelukast 10 mg tablet 10 mg PO BEDTIME 90 days #90 tabs 10/18/20 grab bars #3 ea 10/28/20 mupirocin 2 % topical ointment 1 appl topical BID 14 days #15 11/07/20 grams allopurinol 300 mg tablet 300 mg PO DAILY 90 days #90 tabs 12/02/20 clonazepam 0.5 mg tablet 0.5 mg PO BID PRN anxiety 30 days 12/02/20 #60 tabs tramadol 50 mg tablet 50 mg PO Q6H PRN pain 30 days #120 12/02/20 tabs blood-glucose meter (FreeStyle #1 ea 12/15/20 [place] Lite kit) losartan 50 mg tablet 50 mg PO DAILY 90 days #90 tabs 12/18/20 hydrocortisone 1 % topical cream 1 appl [place] DAILY #28.4 grams 11/11/21 with perineal applicator psyllium husk 6 gram/6 gram oral 1 tbsp PO DAILY #300 grams 11/11/21 powder Allergies Allergy/AdvReac Type Severity Reaction Status Date / Time No Known Allergies Allergy Verified 02/10/22 13:03 Review of Systems ENT: Reports system reviewed and no additional complaints, except as documented Respiratory: Respiratory: Reports no additional respiratory complaints PMFSH Past Medical History Medical History Chronic alcoholic liver disease Constipation by delayed colonic transit Depression with anxiety Diabetes mellitus Essential hypertension Gout Hair loss Hearing loss HLD (hyperlipidemia) HTN (hypertension) Hypovitaminosis D Lumbar degenerative disc disease Lumbar radiculopathy Moderate asthma Neuropathy Numbness Pure hypercholesterolemia T2DM (type 2 diabetes mellitus) Umbilical hernia Surgical History H/O cervical biopsy History of appendectomy History of colonoscopy History of total abdominal hysterectomy and bilateral salpingo-oophorectomy Family History Family History Father Renal failure Mother Fatty liver Ovarian cancer Maternal Aunt Ovarian cancer Breast cancer Brother Colon cancer Social History Social History Housing: Apartment Alcohol intake: never Patient Tobacco Use Status: Former Tobacco user Tobacco use type: Cigarette Smoked in Last 30 Days: No e-Cigarette/Vaping Use: Never Used Second Hand Smoke Exposure: No Use of substances other than those prescribed or required for medical reasons: No Advance Directives: Yes Advance Directives on File: Yes Advance Directives Date on File: 12/22/20 service: No Current occupational status: employed Physical Exam Vital Signs: Vital Signs: Last Vital Signs Temp 97.7 F 04/11/22 13:46 Pulse 69 04/11/22 16:26 Resp 14 04/11/22 16:26 BP 145/63 H 04/11/22 16:26 Pulse Ox 99 04/11/22 16:26 O2 Del Method 04/11/22 16:26 BMI result Body Mass Index 38.2 Const: General: cooperative and no acute distress Nutritional Appearance: well nourished Orientation/consciousness: patient oriented x3 Limitations: no limitations HEENT: Head: Yes normal to inspection, Yes No palpable skull fracture present and Yes atraumatic General nose exam: Normal external nose present Face and sinus: Yes normal facial exam Mouth: Normal oral and palatal mucosa present Throat: Yes posterior oropharynx normal Neck: Neck: Yes normal visual inspection Chest: Chest palpation & inspection: normal inspection of the chest Resp: Effort & Inspection: normal respiratory effort Auscultation: clear to auscultation bilaterally Cardio: Jugular venous distension: no JVD Rate: regular rate Rhythm: regular rhythm GI: Inspection: Yes normal to inspection Palpation (GI): Soft to palpation, not firm and nontender Skin: General skin exam: no rashes or lesions noted and elasticity normal Lesions: no lesions Rashes: no rashes Trauma: no lacerations or abrasions Neuro: General: patient oriented x3, gait normal and CN's II-XI intact bilaterally Cranial nerves: Yes CN's II-XII intact bilaterally Course Reevaluation(s) Reevaluation #1: SIGNED OUT TO DR SIMON,I AM OFF SHIFT NOW Time: 16:32 Medical Decision Making Medical Decision Making [facility] Narrative: Patient fell at the nursing normal from the wheelchair will get imaging and reassessed Differential Diagnosis Differential Diagnoses: The differential diagnosis associated with the presentation includes Subdural hematoma/ cervical fracture Lab Data Labs: Lab Results 04/11/22 Range/Units 15:12 Urine Color Yellow Urine Appearance Clear Urine pH 6.0 (5.0-9.0) Ur Specific [place] 1.015 (1.005-1.025) Urine Protein Negative (Neg-Trace) mg/dL Urine Glucose (UA) Negative (Negative) mg/dL Urine Ketones Negative (Negative) mg/dL Urine Blood Negative (Negative) Urine Nitrite Negative (Negative) Ur Leukocyte Esterase Small (1+) H (Negative) Urine RBC 11-20 H (0-2) /HPF Urine WBC 0-5 (0-5) /HPF Ur Squamous Epith Cells 0-2 (0-2) /HPF Urine Bacteria None Seen (None Seen) Hyaline Casts 0-2 (0-2) /LPF Discharge Plan Discharge Clinical Impression: Fall, Back pain Patient Disposition: Still a Patient Prescriptions: No Action (DME) lancets [FreeStyle Lancets] 28 gauge misc See Rx Instructions .ROUTE .MEDSUPPLY Qty: 100 11RF Hold Instructions: patient's request Rx Instructions: As directed alcohol swabs Pads, Medicated 1 pad topical TID 67 Days Qty: 200 5RF triamcinolone acetonide 0.1 % cream 1 appl topical BID PRN (Reason: rash) 30 Days Qty: 80 4RF Hold Instructions: Doctor's Order ascorbic acid (vitamin C) 500 mg tablet 500 mg PO BID 90 Days Qty: 180 3RF ferrous sulfate 325 mg (65 mg iron) tablet,delayed release (DR/EC) 325 mg PO DAILY 90 Days Qty: 90 1RF metformin 1,000 mg tablet 1,000 mg PO BID 90 Days Qty: 180 3RF (DME) pen needle, diabetic 32 gauge x 5/32 needle See Rx Instructions .ROUTE TID Qty: 50 11RF Rx Instructions: As directed gabapentin 800 mg tablet 800 mg PO .every 6 hours 30 Days Qty: 120 6RF furosemide 20 mg tablet 20 mg PO BID 30 Days Qty: 60 6RF albuterol sulfate 2.5 mg /3 mL (0.083 %) solution for nebulization 2.5 mg inhalation TID 30 Days Qty: 270 3RF Hold Instructions: Doctor's Order Victoza 3-Aric 0.6 mg/0.1 mL (18 mg/3 mL) pen injector 1.8 mg subcut DAILY 30 Days Qty: 9 6RF montelukast 10 mg tablet 10 mg PO BEDTIME 90 Days Qty: 90 1RF atorvastatin 20 mg tablet 20 mg PO DAILY 90 Days Qty: 90 3RF (DME) grab bars See Rx Instructions .Route .MEDSUPPLY Qty: 3 0RF Rx Instructions: As directed mupirocin 2 % ointment 1 appl topical BID 14 Days Qty: 15 1RF clonazepam 0.5 mg tablet 0.5 mg PO BID PRN (Reason: anxiety) 30 Days Qty: 60 0RF allopurinol 300 mg tablet 300 mg PO DAILY 90 Days Qty: 90 3RF tramadol 50 mg tablet 50 mg PO Q6H PRN (Reason: pain) 30 Days Qty: 120 0RF (DME) blood-glucose meter [FreeStyle [place] Lite] Kit See Rx Instructions .ROUTE .MEDSUPPLY Qty: 1 0RF Rx Instructions: 3 x/day losartan 50 mg tablet 50 mg PO DAILY 90 Days Qty: 90 3RF docusate sodium 100 mg capsule 100 mg PO BID PRN (Reason: Constipation) (DME) lancets 33 gauge misc See Rx Instructions .ROUTE .MEDSUPPLY Qty: 100 Hold Instructions: patient's request Rx Instructions: As directed insulin aspart U-100 100 unit/mL (3 mL) insulin pen 3 - 9 unit subcut TID albuterol sulfate 90 mcg/actuation HFA aerosol inhaler 2 puff inhalation Q4H PRN (Reason: Wheezing) Lantus Solostar U-100 Insulin 100 unit/mL (3 mL) insulin pen 24 unit subcut QAM calcium carbonate-vitamin D3 600 mg-10 mcg (400 unit) tablet 1 tab PO BID colchicine 0.6 mg tablet 0.6 mg PO DAILY spironolactone 25 mg tablet 25 mg PO DAILY psyllium husk 6 gram/6 gram powder 1 tbsp PO DAILY Qty: 300 0RF Rx Instructions: mix into at least 8 oz of water or juice before administering hydrocortisone 1 % cream with perineal applicator 1 appl [place] DAILY Qty: 28.4 0RF
[2022-04-11 15:20] LABS: Appearance Urine Clear; Color Urine Yellow; Glucose Urine UA Negative (Negative); Leukocyte Esterase Urine Small (1+) (Negative); Nitrite Urine Negative (Negative); Specific Gravity - Urine 1.015 (1.005-1.025); UMIC TRIGGER UACC YES; Urine Blood Negative (Negative); Urine Ketones Negative (Negative); Urine Protein Negative (Neg-Trace)
[2022-04-11 15:31] LABS: Bacteria Urine None Seen (None Seen); Hyaline Casts Urine 0-2 /LPF (0-2); Squamous Epithelial Cell Urine 0-2 /HPF (0-2); UACC Culture Trigger YES; WBC Urine 0-5 /HPF (0-5)
[2022-04-11 16:26] VITALS: BP 145/63; PULSE 69; RESP 14; O2SAT 99
[2022-04-11 18:12] VITALS: BP 142/57; PULSE 65; RESP 16; O2SAT 97
[2022-04-11] MEDS: HYDROmorphone HCl 1 MG/ML SYRINGE IM (18:13)
[2022-04-11 19:43] LABS: Glucose, Whole Blood 72 mg/dL (60-115)
[2022-04-11] MEDS: oxyCODONE HCl Immed Release 5 MG TABLET PO (22:40)
== END 2022-04-11 22:56 | disposition skilled nursing facility (03) ==
PROVIDERS: Emergency Provider Emergency Medicine; PCP Internal Medicine
DX: S39.012A Strain of muscle, fascia and tendon of lower back, initial encounter (principal); S16.1XXA Strain of muscle, fascia and tendon at neck level, initial encounter; R51.9 Headache, unspecified; M54.2 Cervicalgia; M25.551 Pain in right hip; M25.511 Pain in right shoulder; M54.6 Pain in thoracic spine; W05.0XXA Fall from non-moving wheelchair, initial encounter; Y93.9 Activity, unspecified; Y92.009 Unspecified place in unspecified non-institutional (private) residence as the place of occurrence of the external cause; Y99.9 Unspecified external cause status; Z79.899 Other long term (current) drug therapy
CPT/HCPCS: 70450; 72125; 72128; 72131; 73030; 73502; 81001; 82947; 87086; 96372; 99284; J1170

== ENCOUNTER 2022-04-12 07:04 | Outpatient (REF) | payer OTHER, SELFPAY ==
[2022-04-12 06:28] LABS: MANUAL DIFF FLAG NO
[2022-04-12 07:06] LABS: Basophils Percent Auto 0.6 % (0-2); Eosinophils Absolute Auto 0.2 X10*3/uL (0.0-0.4); Eosinophils Percent Auto 3.2 % (0-4); Hematocrit 29.7 % (37.0-47.0); Hemoglobin 9.4 g/dl (12.0-16.0); Imm Gran Abs Auto 0.01 X10*3/uL (0.00-0.03); Imm Gran Pct Auto 0.2 % (0.0-0.4); Lymphocytes Percent Auto 20.6 % (20-40); Mean Corpuscular HGB Conc 31.6 g/dl (31.0-35.0); Mean Corpuscular Hemoglobin 31.2 pg (27.0-33.0); Mean Corpuscular Volume 98.7 fL (80.0-98.0); Mean Platelet Volume 9.6 fL (9.4-12.3); Monocytes Absolute Auto 0.6 X10*3/uL (0.1-1.2); Monocytes Percent Auto 11.1 % (2-11); Neutrophils Absolute Auto 3.2 x10*3/uL (2.0-8.3); Neutrophils Percent Auto 64.3 % (45-73); Platelet Count 137 X10*3/uL (160-400); Red Blood Count 3.01 X10*6/uL (4.20-5.50); Red Cell Distribution Width 14.1 % (11.0-16.0)
[2022-04-12 07:39] LABS: Anion Gap 14 (12-20); Blood Urea Nitrogen 37 mg/dL (9-16); Calcium 8.9 mg/dL (8.4-10.2); Carbon Dioxide 31 mmol/L (22-29); Chloride 102 mmol/L (96-108); Estimated Glomerular Filt Rate 31; Glucose Random 152 mg/dL (60-115); Potassium 4.7 mmol/L (3.3-5.1); Sodium 142 mmol/L (135-145)
== END 2022-04-12 07:05 | disposition home or self-care (01) ==
LOC: HO.MMNH3L 07:04
PROVIDERS: Visit Provider Family Medicine
DX: E11.42 Type 2 diabetes mellitus with diabetic polyneuropathy (principal); I10 Essential (primary) hypertension; R60.0 Localized edema
CPT/HCPCS: 36415; 80048; 85025

== ENCOUNTER 2022-04-19 06:12 | Outpatient (REF) | payer OTHER, SELFPAY ==
[2022-04-19 06:02] LABS: MANUAL DIFF FLAG NO
[2022-04-19 06:32] LABS: Basophils Percent Auto 0.6 % (0-2); Eosinophils Absolute Auto 0.2 X10*3/uL (0.0-0.4); Eosinophils Percent Auto 4.4 % (0-4); Hematocrit 31.8 % (37.0-47.0); Imm Gran Abs Auto 0.01 X10*3/uL (0.00-0.03); Imm Gran Pct Auto 0.2 % (0.0-0.4); Lymphocytes Percent Auto 19.8 % (20-40); Mean Corpuscular HGB Conc 31.4 g/dl (31.0-35.0); Mean Corpuscular Hemoglobin 31.1 pg (27.0-33.0); Mean Corpuscular Volume 98.8 fL (80.0-98.0); Mean Platelet Volume 9.6 fL (9.4-12.3); Monocytes Absolute Auto 0.6 X10*3/uL (0.1-1.2); Monocytes Percent Auto 11.1 % (2-11); Neutrophils Absolute Auto 3.4 x10*3/uL (2.0-8.3); Neutrophils Percent Auto 63.9 % (45-73); Platelet Count 145 X10*3/uL (160-400); Red Blood Count 3.22 X10*6/uL (4.20-5.50); Red Cell Distribution Width 14.2 % (11.0-16.0); White Blood Count 5.2 X10*3/uL (4.8-10.8)
[2022-04-19 06:38] LABS: Anion Gap 16 (12-20); Blood Urea Nitrogen 46 mg/dL (9-16); Calcium 9.1 mg/dL (8.4-10.2); Carbon Dioxide 33 mmol/L (22-29); Chloride 97 mmol/L (96-108); Estimated Glomerular Filt Rate 26; Glucose Random 79 mg/dL (60-115); Potassium 4.7 mmol/L (3.3-5.1); Sodium 141 mmol/L (135-145)
== END 2022-04-19 06:13 | disposition home or self-care (01) ==
LOC: HO.MMNH3L 06:12
PROVIDERS: Visit Provider Family Medicine
DX: M51.36 Other intervertebral disc degeneration, lumbar region (principal); Z86.16 Personal history of COVID-19
CPT/HCPCS: 36415; 80048; 85025

== ENCOUNTER 2022-04-22 09:47 | Day surgery (SDC) | payer OTHER, SELFPAY ==
[2022-04-22] VITALS (8 sets, daily range): BP systolic 110–123; BP diastolic 41–76; PULSE 66–77; RESP 16–18; TEMP 36.1–36.6; O2SAT 94–100; BMI 33.6
--- NOTE | 2022-04-22 10:31 | MHC.SHP ---
Pre-Procedural Eval Section A Date of Service: 04/22/22 Section B Chief Complaint: cirrhosis of liver,hemorrhoids, Relevant Family History (Specify if Yes): No Relevant Social History: None Present Medications: see Short Stay Collaborative assessment Medical History: Significant History (Chronic alcoholic liver disease Constipation by delayed colonic transit Depression with anxiety Diabetes mellitus Essential hypertension Gout Hair loss Hearing loss HLD (hyperlipidemia) HTN (hypertension) Hypovitaminosis D Lumbar degenerative disc disease Lumbar radiculopathy Moderate asthma Neuropa) History of Previous Operations: Relevant previous surgery/procedure and date(s) ( H/O cervical biopsy History of appendectomy History of colonoscopy History of total abdominal hysterectomy and bilateral salpingo-oophorectomy) Allergies: Allergies Allergy/AdvReac Type Severity Reaction Status Date / Time No Known Allergies Allergy Verified 02/10/22 13:03 Review of Systems Sugical H&P ROS: Negative: Constitution, Cardiovascular, Respiratory, Neurological, Psychiatric, Hem-Onc, Allergic/Immunologic, Gastrointestinal, Genitourinary, Musculoskeletal, Integumentary, Endocrine and Eyes/Ears/Nose/Throat Exam Surgical H&P Exam: Normal: HEENT, Normal: Heart, Normal: Lungs, Normal: Extremities, Normal: Abdomen, Normal: Skin and Normal: Neurological Plan Diagnosis/Plan: Unchanged I have reviewed the history and physical and performed a pertinent physical examination on my patient. No changes have occurred unless specified. Time Spent With Patient Time: Total time managing care of this patient today ____ minutes.
[2022-04-22 10:43] LABS: Glucose, Whole Blood 101 mg/dL (60-115)
[2022-04-22] MEDS: Sodium Phosphate,Mono-Dibasic 133 ML ENEMA PR ×2 (11:19)
--- NOTE | 2022-04-22 11:20 | PC.NURSE ---
fleets enema pr, given @ 1030 with results of fuller liquid, clear, 2nd enema pr given 1045
--- NOTE | 2022-04-22 11:47 | HO.ANESPROP2 ---
HPI - Anesthesia Eval Consult details Narrative: 76yo female patient for EGD, Flexible Sigmoidoscopy PMF Active Problems Active Problems: All Active Problems (Updated 04/12/22 @ 00:00 by Tanya Watkins) Varicose veins of right lower extremity with inflammation (Acute) Cirrhosis (Acute) Chronic alcoholic liver disease (Acute) Numbness (Acute) HTN (hypertension) (Acute) HLD (hyperlipidemia) (Acute) T2DM (type 2 diabetes mellitus) (Acute) Trochanteric bursitis, right hip (Acute) Lumbar radiculopathy (Acute) Hair loss (Acute) Hearing loss (Acute) Umbilical hernia (Acute) Hypovitaminosis D (Acute) Constipation by delayed colonic transit (Acute) Pure hypercholesterolemia (Acute) Depression with anxiety (Acute) Gout (Acute) Moderate asthma (Acute) Essential hypertension (Acute) Diabetes mellitus (Acute) Lumbar degenerative disc disease (Acute) Neuropathy (Acute) DARREL. No longer using CPAP. 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 Claw foot (per patient) Past Medical History Medical History Chronic alcoholic liver disease Constipation by delayed colonic transit Depression with anxiety Diabetes mellitus Essential hypertension Gout Hair loss Hearing loss HLD (hyperlipidemia) HTN (hypertension) Hypovitaminosis D Lumbar degenerative disc disease Lumbar radiculopathy Moderate asthma Neuropathy Numbness Pure hypercholesterolemia T2DM (type 2 diabetes mellitus) Umbilical hernia Family History Family History Father Renal failure Mother Fatty liver Ovarian cancer Maternal Aunt Ovarian cancer Breast cancer Brother Colon cancer Family history of problems with anesthesia: No Surgical History Surgical History H/O cervical biopsy History of appendectomy History of colonoscopy History of total abdominal hysterectomy and bilateral salpingo-oophorectomy History of Problems with Anesthesia: No Social History Social History Housing: Apartment Alcohol intake: never Patient Tobacco Use Status: Former Tobacco user Tobacco use type: Cigarette e-Cigarette/Vaping Use: Never Used Second Hand Smoke Exposure: No Use of substances other than those prescribed or required for medical reasons: Unable to respond Advance Directives: Yes Advance Directives on File: Yes Advance Directives Date on File: 12/22/20 service: No Current occupational status: employed Meds Allergies Allergy/AdvReac Type Severity Reaction Status Date / Time No Known Allergies Allergy Verified 02/10/22 13:03 Active Medications: Current Medications Sodium Biphosphate/Sodium Phosphate (Sodium Phosphate,Clarke-Dibasic 133 Ml Enema) 133 ml NM ONCE PRN PRN Reason: Consult order Last Admin: 04/22/22 11:19 Dose: 133 ml Home Medications Medication Instructions Recorded Confirmed Last Taken Type albuterol sulfate 90 mcg/actuation 2 puff inhalation Q4H PRN Wheezing 01/31/20 12/20/20 12/19/20 History aerosol inhaler docusate sodium 100 mg capsule 100 mg PO BID PRN Constipation 01/31/20 12/20/20 12/19/20 History insulin aspart U-100 100 unit/mL 3 - 9 unit subcut TID 01/31/20 10/30/20 Unknown History (3 mL) subcutaneous pen lancets 33 gauge #100 ea 01/31/20 10/30/20 Unknown History insulin glargine 100 unit/mL (3 24 unit subcut QAM 09/15/20 12/20/20 12/19/20 History mL) subcutaneous pen (Lantus Solostar U-100 Insulin) calcium carbonate 600 mg-vitamin 1 tab PO BID 11/11/21 Unknown History D3 10 mcg (400 unit) tablet colchicine 0.6 mg tablet 0.6 mg PO DAILY 11/11/21 Unknown History spironolactone 25 mg tablet 25 mg PO DAILY 11/11/21 Unknown History Exam Exam Date and Time: April 22, 2022 114 Height,Weight and Vital Signs: Height 5 ft 3 in Weight 86.183 kg Last Vital Signs Temp 97.8 F 04/22/22 10:20 Pulse 77 04/22/22 10:20 Resp 18 04/22/22 10:20 BP 123/65 04/22/22 10:20 Pulse Ox 94 04/22/22 10:20 O2 Del Method 04/22/22 10:20 Pertinent Lab Results Pertinent Lab Results: Laboratory Tests 04/22/22 10:37 POC Glucose 103 Airway Mallampati Class: II TM Dist: >3cm Neck ROM: Full Denture: Upper and Lower Loose/Missing/Broken Teeth: Yes (No teeth in) Heart: RRR Lungs: CTAB Assessment and Plan Assessment Anesthesia Assessment: Anesthesia Plan Discussed and Chart Reviewed Final Anesthetic Review Family History of Problems with Anesthesia: No History of Problems with Anesthesia: No NPO: Yes ASA Class: III Final Preanesthetic Review: No Changes in Pt Med Stat, Meds/Allgs Chart Reviewed, Consent Obtained/Reviewed and Anes Risks/Benef Reviewed Patient Risk: Intermediate Procedure Risk: Low Assessment/Block/Sedation in SS: Assess/Block/Sedation-SS Anesthetic Plan Anesthetic Plan: MAC: Disposition: Standard PACU
--- NOTE | 2022-04-22 11:51 | W.PM.OPN ---
Operative Note Operative Note Date of Service: 04/22/22 Narrative: Operative Information Procedure Description: EGD, Colonoscopy Indication: [] Anesthesia: MAC FLEXIBLE TRANSORAL UPPER GASTROINTESTINAL ENDOSCOPY AND COLONOSCOPY PROCEDURE NOTE UPPER ENDOSCOPY Consent: Indications for the procedure and potential complications of bleeding, perforation, reaction to medications and missed diagnosis were discussed with the patient and informed consent was obtained. Instrument: Olympus GIF H 190 J mid size upper endoscope Monitoring: Vital signs and clinical assessment, continuous EKG monitoring, Pulse oximetry, Carbon Dioxide monitoring and blood pressure monitoring were done throughout the procedure. Procedure: The patient was placed in the left lateral decubitis position and pre-procedure medications were administered and a bite block was placed. The endoscope was inserted into the mouth and advanced under direct vision to the third part of duodenum. A careful inspection was made as the upper endoscope was withdrawn including a retroflexed examination of the proximal stomach; Findings and interventions are described below. Findings: Larynx:normal Esophagus: GE junction at [] cm, diaphragm hiatus at [] cm, normal mucosa Stomach: Normal mucosa. Biopsies were obtained. Grade 2 flap valve on retroflexed examination of the cardia. Duodenum: Normal bulb and descending duodenum, Intervention: Biopsies as noted above COLONOSCOPY Instrument: Olympus variable stiffness pediatric scope 190L Colonoscopy Monitoring: Vital signs and clinical assessment, continuous EKG monitoring, Pulse oximetry, Carbon Dioxide monitoring and blood pressure monitoring were done throughout the procedure. Colon withdrawal time was [] minutes. Procedure: The patient was placed in the left lateral decubitis position and pre-procedure medications were administered. After a digital rectal examination of the ano-rectum, the video colonoscope was inserted into the rectum and advanced through the colon to the cecum/TI. The colonoscope was slowly withdrawn in a retrograde panoramic fashion and the colon mucosa was carefully examined including a retroflexed view of the rectum. Findings and interventions are described below. Procedure Difficulty: Findings: Terminal Ileum-normal Cecum:normal Ascending Colon: normal Transverse Colon -normal Descending Colon:normal Sigmoid Colon: normal Rectum: Retroflexion with [] internal hemorrhoids, grade [] Anorectum - normal Colon preparation: [place] Bowel Preparation Scale Right colon; [] Transverse colon: [] Left colon; [] (0 = Unprepared colon segment with mucosa not seen due to solid stool that cannot be cleared. 1 = Portion of mucosa of the colon segment seen, but other areas of the colon segment not well seen due to staining, residual stool and/or opaque liquid. 2 = Minor amount of residual staining, small fragments of stool and/or opaque liquid, but mucosa of colon segment seen well. 3 = Entire mucosa of colon segment seen well with no residual staining, small fragments of stool or opaque liquid) Impression and Post Procedure Diagnosis: Endoscopy Findings: [] Colonoscopy Findings: [] Plan: Await Pathology results Repeat Colonoscopy in [] years or earlier if clinically indicated High fiber diet leaflet avoid straining at stool, epsom salts and sitz bath, anusol supps or cream Above findings were reviewed with the patient and relevant handouts were provided if indicated.
--- NOTE | 2022-04-22 13:52 | P.OP_ITS ---
Operative Note Operative Note Date of Service: 04/22/22 Narrative: Procedure:?Esophagogastroduodenoscopy and Flexible sigmoidoscopy Indication:?Cirrhosis, rectal bleeding Endoscopist:?Faraz Simmons Anesthesia Provider:?Dr Hilda Woodall Anesthesia type:?MAC Instrument:?Olympus GIF-H190 EGD Procedure:?? The procedure, indications, preparation and potential complications were reviewed with the patient, who indicated understanding and gave written informed consent to proceed. A physical exam was performed. The endoscope was introduced through the mouth, and advanced to the second part of the duodenum. The mucosa was carefully examined on slow withdrawal of the endoscope. The patient tolerated the procedure well. There were no immediate complications.? ? EGD Findings:? * Esophagus:?Small varices were noted that flattened on insufflation. The Z line was at 38 cm. * Stomach:?Erythema and red spots scattered in the antrum consistent with gastric antral vascular ectasia (GAVE). Random gastric biopsies were obtained to r/o H pylori. * Duodenum:? Normal mucosa was noted in the whole of the examined duodenum. ? Cold forceps biopsies were up pain from the duodenal bulb and 2nd part of the duodenum to rule out celiac sprue. Sigmoidoscopy Procedure:? The patient was then turned for the sigmoidoscopy. A digital rectal exam was performed which was abnormal for large hemorrhoids. The scope was then inserted through the anus and advanced through the colon to the hepatic flexure at 70 cm. Mucosa was carefully examined under high definition white light as the instrument was slowly withdrawn in a retrograde panoramic fashion. Retroflexion was performed in rectum. The procedure was not difficult. There were no immediate obvious complications. Limitations: Poor prep. Findings: Mucosa: Poor visualisation in transverse colon and proximal descending colon due to solid and semi solid stool. There was a clean based ulcer at the anorectal junction. Biospies from the rectal edge were obtained for histology. Protruding lesions: * Large internal hemorrhoids with stigmata of recent bleeding. Impression:? * Flat varices * GAVE (biopsy) * Normal duodenum (biopsy) * Anorectal junction ulcer (biopsy) * Large external and internal hemorrhoids Recommendations:?? * Follow path results. * Suspect ulcer likely 2/2 SURS * Small varices without high risk stigmata in a pt with compensated cirrhosis and therefore NSBB not indicated. * Avoid NSAIDs Above was reviewed with the patient and a handout was provided.
[2022-04-22 14:24] LABS: MANUAL DIFF FLAG NO
[2022-04-22 14:28] LABS: Basophils Percent Auto 0.7 % (0-2); Eosinophils Absolute Auto 0.2 X10*3/uL (0.0-0.4); Eosinophils Percent Auto 3.3 % (0-4); Hematocrit 32.7 % (37.0-47.0); Imm Gran Abs Auto 0.02 X10*3/uL (0.00-0.03); Imm Gran Pct Auto 0.4 % (0.0-0.4); Lymphocytes Absolute Auto 0.9 X10*3/uL (1.2-4.9); Lymphocytes Percent Auto 15.3 % (20-40); Mean Corpuscular HGB Conc 30.6 g/dl (31.0-35.0); Mean Corpuscular Hemoglobin 30.2 pg (27.0-33.0); Mean Corpuscular Volume 98.8 fL (80.0-98.0); Mean Platelet Volume 9.3 fL (9.4-12.3); Monocytes Absolute Auto 0.5 X10*3/uL (0.1-1.2); Monocytes Percent Auto 9.1 % (2-11); Neutrophils Absolute Auto 4.1 x10*3/uL (2.0-8.3); Neutrophils Percent Auto 71.2 % (45-73); Platelet Count 154 X10*3/uL (160-400); Red Blood Count 3.31 X10*6/uL (4.20-5.50); Red Cell Distribution Width 14.3 % (11.0-16.0); White Blood Count 5.7 X10*3/uL (4.8-10.8)
[2022-04-22 14:45] LABS: Alanine Aminotransferase 17 U/L (0-31); Albumin Level 3.3 g/dL (3.5-5.0); Alkaline Phosphatase 78 U/L (39-117); Anion Gap 15 (12-20); Aspartate Amino Transferase 24 U/L (5-31); Bilirubin Total 0.7 mg/dL (0.0-1.0); Blood Urea Nitrogen 59 mg/dL (9-16); Calcium 9.5 mg/dL (8.4-10.2); Carbon Dioxide 32 mmol/L (22-29); Chloride 99 mmol/L (96-108); Creatinine Clr Calc Pharmacy 19.4; Estimated Glomerular Filt Rate 19; Glucose Random 91 mg/dL (60-115); Potassium 4.9 mmol/L (3.3-5.1); Sodium 141 mmol/L (135-145); Total Protein 5.8 g/dL (6.5-8.0)
== END 2022-04-22 16:45 | disposition home or self-care (01) ==
PROVIDERS: Internal Medicine; PCP Internal Medicine; Visit Provider Internal Medicine Gastroenterology
PROC: 0DJ08ZZ Inspection of Upper Intestinal Tract, Via Natural or Artificial Opening Endoscopic (ICD-10-PCS; CPT 43235; principal; 2022-04-22 11:10)
DX: K74.60 Unspecified cirrhosis of liver (principal); K62.5 Hemorrhage of anus and rectum; K64.8 Other hemorrhoids; K64.4 Residual hemorrhoidal skin tags; K62.6 Ulcer of anus and rectum; K59.01 Slow transit constipation; K31.819 Angiodysplasia of stomach and duodenum without bleeding; I85.00 Esophageal varices without bleeding; I10 Essential (primary) hypertension; E78.00 Pure hypercholesterolemia, unspecified; G62.9 Polyneuropathy, unspecified; G47.30 Sleep apnea, unspecified; J45.909 Unspecified asthma, uncomplicated; L65.9 Nonscarring hair loss, unspecified; E11.9 Type 2 diabetes mellitus without complications; Z79.4 Long term (current) use of insulin; Z79.899 Other long term (current) drug therapy; Z87.891 Personal history of nicotine dependence
CPT/HCPCS: 45331; 43239; 36415; 80053; 82947; 85025; 88305; 88342; J3010

== ENCOUNTER 2022-04-26 06:50 | Outpatient (REF) | payer OTHER, SELFPAY ==
[2022-04-26 06:31] LABS: MANUAL DIFF FLAG NO
[2022-04-26 07:30] LABS: Anion Gap 17 (12-20); Blood Urea Nitrogen 55 mg/dL (9-16); Calcium 9.3 mg/dL (8.4-10.2); Carbon Dioxide 32 mmol/L (22-29); Chloride 99 mmol/L (96-108); Estimated Glomerular Filt Rate 18; Potassium 4.7 mmol/L (3.3-5.1); Sodium 143 mmol/L (135-145)
[2022-04-26 07:59] LABS: Basophils Percent Auto 0.7 % (0-2); Eosinophils Absolute Auto 0.3 X10*3/uL (0.0-0.4); Hematocrit 33.6 % (37.0-47.0); Hemoglobin 10.5 g/dl (12.0-16.0); Imm Gran Abs Auto 0.02 X10*3/uL (0.00-0.03); Imm Gran Pct Auto 0.4 % (0.0-0.4); Lymphocytes Percent Auto 18.4 % (20-40); Mean Corpuscular HGB Conc 31.3 g/dl (31.0-35.0); Mean Corpuscular Volume 99.1 fL (80.0-98.0); Mean Platelet Volume 9.9 fL (9.4-12.3); Monocytes Absolute Auto 0.5 X10*3/uL (0.1-1.2); Monocytes Percent Auto 9.6 % (2-11); Neutrophils Absolute Auto 3.7 x10*3/uL (2.0-8.3); Neutrophils Percent Auto 65.9 % (45-73); Platelet Count 155 X10*3/uL (160-400); Red Blood Count 3.39 X10*6/uL (4.20-5.50); Red Cell Distribution Width 14.4 % (11.0-16.0); White Blood Count 5.6 X10*3/uL (4.8-10.8)
[2022-04-26 08:04] LABS: Glucose Random 58 mg/dL (60-115)
== END 2022-04-26 06:51 | disposition home or self-care (01) ==
LOC: HO.MMNH3L 06:50
PROVIDERS: Visit Provider Family Medicine
DX: E11.42 Type 2 diabetes mellitus with diabetic polyneuropathy (principal); I10 Essential (primary) hypertension; R60.0 Localized edema
CPT/HCPCS: 36415; 80048; 85025

== ENCOUNTER 2022-05-03 05:48 | Outpatient (REF) | payer OTHER, SELFPAY ==
[2022-05-03 05:40] LABS: MANUAL DIFF FLAG NO
[2022-05-03 06:06] LABS: Basophils Absolute Auto 0.1 X10*3/uL (0.0-0.2); Basophils Percent Auto 0.7 % (0-2); Eosinophils Absolute Auto 0.4 X10*3/uL (0.0-0.4); Eosinophils Percent Auto 6.3 % (0-4); Hematocrit 36.5 % (37.0-47.0); Hemoglobin 11.3 g/dl (12.0-16.0); Imm Gran Abs Auto 0.02 X10*3/uL (0.00-0.03); Imm Gran Pct Auto 0.3 % (0.0-0.4); Lymphocytes Absolute Auto 1.1 X10*3/uL (1.2-4.9); Lymphocytes Percent Auto 16.9 % (20-40); Mean Corpuscular Hemoglobin 30.6 pg (27.0-33.0); Mean Corpuscular Volume 98.9 fL (80.0-98.0); Mean Platelet Volume 10.1 fL (9.4-12.3); Monocytes Absolute Auto 0.7 X10*3/uL (0.1-1.2); Monocytes Percent Auto 9.7 % (2-11); Neutrophils Absolute Auto 4.4 x10*3/uL (2.0-8.3); Neutrophils Percent Auto 66.1 % (45-73); Platelet Count 162 X10*3/uL (160-400); Red Blood Count 3.69 X10*6/uL (4.20-5.50); Red Cell Distribution Width 14.5 % (11.0-16.0); White Blood Count 6.7 X10*3/uL (4.8-10.8)
[2022-05-03 06:30] LABS: Anion Gap 20 (12-20); Blood Urea Nitrogen 56 mg/dL (9-16); Calcium 9.3 mg/dL (8.4-10.2); Carbon Dioxide 30 mmol/L (22-29); Chloride 99 mmol/L (96-108); Estimated Glomerular Filt Rate 15; Glucose Random 78 mg/dL (60-115); Potassium 5.4 mmol/L (3.3-5.1); Sodium 144 mmol/L (135-145)
== END 2022-05-03 05:49 | disposition home or self-care (01) ==
LOC: HO.MMNH3L 05:48
PROVIDERS: Visit Provider Family Medicine
DX: E11.42 Type 2 diabetes mellitus with diabetic polyneuropathy (principal); I10 Essential (primary) hypertension; R60.0 Localized edema
CPT/HCPCS: 36415; 80048; 85025

== ENCOUNTER 2022-05-10 05:54 | Outpatient (REF) | payer OTHER, SELFPAY ==
[2022-05-10 05:44] LABS: MANUAL DIFF FLAG NO
[2022-05-10 06:25] LABS: Basophils Absolute Auto 0.1 X10*3/uL (0.0-0.2); Basophils Percent Auto 0.9 % (0-2); Eosinophils Absolute Auto 0.8 X10*3/uL (0.0-0.4); Eosinophils Percent Auto 11.5 % (0-4); Hematocrit 36.2 % (37.0-47.0); Imm Gran Abs Auto 0.02 X10*3/uL (0.00-0.03); Imm Gran Pct Auto 0.3 % (0.0-0.4); Lymphocytes Absolute Auto 1.3 X10*3/uL (1.2-4.9); Lymphocytes Percent Auto 18.8 % (20-40); Mean Corpuscular HGB Conc 30.4 g/dl (31.0-35.0); Mean Corpuscular Hemoglobin 30.3 pg (27.0-33.0); Mean Corpuscular Volume 99.7 fL (80.0-98.0); Mean Platelet Volume 10.2 fL (9.4-12.3); Monocytes Absolute Auto 0.6 X10*3/uL (0.1-1.2); Neutrophils Absolute Auto 4.1 x10*3/uL (2.0-8.3); Neutrophils Percent Auto 59.5 % (45-73); Platelet Count 171 X10*3/uL (160-400); Red Blood Count 3.63 X10*6/uL (4.20-5.50); Red Cell Distribution Width 14.6 % (11.0-16.0); White Blood Count 6.8 X10*3/uL (4.8-10.8)
[2022-05-10 07:25] LABS: Anion Gap 18 (12-20); Blood Urea Nitrogen 62 mg/dL (9-16); Calcium 9.8 mg/dL (8.4-10.2); Carbon Dioxide 26 mmol/L (22-29); Chloride 101 mmol/L (96-108); Estimated Glomerular Filt Rate 13; Glucose Random 104 mg/dL (60-115); Potassium 5.9 mmol/L (3.3-5.1); Sodium 139 mmol/L (135-145)
== END 2022-05-10 05:55 | disposition home or self-care (01) ==
LOC: HO.MMNH3L 05:54
PROVIDERS: Visit Provider Family Medicine
DX: E11.42 Type 2 diabetes mellitus with diabetic polyneuropathy (principal); I10 Essential (primary) hypertension; R60.0 Localized edema
CPT/HCPCS: 36415; 80048; 85025

== ENCOUNTER 2022-05-17 06:22 | Outpatient (REF) | payer OTHER, SELFPAY ==
[2022-05-17 06:10] LABS: MANUAL DIFF FLAG NO
[2022-05-17 06:38] LABS: Basophils Absolute Auto 0.1 X10*3/uL (0.0-0.2); Basophils Percent Auto 0.8 % (0-2); Eosinophils Absolute Auto 0.5 X10*3/uL (0.0-0.4); Eosinophils Percent Auto 8.3 % (0-4); Hematocrit 36.6 % (37.0-47.0); Hemoglobin 11.2 g/dl (12.0-16.0); Imm Gran Abs Auto 0.01 X10*3/uL (0.00-0.03); Imm Gran Pct Auto 0.2 % (0.0-0.4); Lymphocytes Absolute Auto 1.1 X10*3/uL (1.2-4.9); Lymphocytes Percent Auto 18.7 % (20-40); Mean Corpuscular HGB Conc 30.6 g/dl (31.0-35.0); Mean Corpuscular Hemoglobin 29.9 pg (27.0-33.0); Mean Corpuscular Volume 97.9 fL (80.0-98.0); Monocytes Absolute Auto 0.5 X10*3/uL (0.1-1.2); Monocytes Percent Auto 8.6 % (2-11); Neutrophils Absolute Auto 3.8 x10*3/uL (2.0-8.3); Neutrophils Percent Auto 63.4 % (45-73); Platelet Count 141 X10*3/uL (160-400); Red Blood Count 3.74 X10*6/uL (4.20-5.50); Red Cell Distribution Width 14.3 % (11.0-16.0)
[2022-05-17 07:08] LABS: Anion Gap 18 (12-20); Blood Urea Nitrogen 66 mg/dL (9-16); Calcium 9.9 mg/dL (8.4-10.2); Carbon Dioxide 28 mmol/L (22-29); Chloride 99 mmol/L (96-108); Estimated Glomerular Filt Rate 14; Glucose Random 82 mg/dL (60-115); Potassium 5.4 mmol/L (3.3-5.1); Sodium 140 mmol/L (135-145)
== END 2022-05-17 06:23 | disposition home or self-care (01) ==
LOC: HO.MMNH3L 06:22
PROVIDERS: Visit Provider Family Medicine
DX: E11.42 Type 2 diabetes mellitus with diabetic polyneuropathy (principal); I10 Essential (primary) hypertension; R60.0 Localized edema
CPT/HCPCS: 36415; 80048; 85025

== ENCOUNTER 2022-05-24 06:28 | Outpatient (REF) | payer OTHER, SELFPAY ==
[2022-05-24 06:23] LABS: MANUAL DIFF FLAG NO
[2022-05-24 06:51] LABS: Basophils Absolute Auto 0.1 X10*3/uL (0.0-0.2); Basophils Percent Auto 0.8 % (0-2); Eosinophils Absolute Auto 0.5 X10*3/uL (0.0-0.4); Eosinophils Percent Auto 8.8 % (0-4); Hematocrit 38.1 % (37.0-47.0); Imm Gran Abs Auto 0.02 X10*3/uL (0.00-0.03); Imm Gran Pct Auto 0.3 % (0.0-0.4); Lymphocytes Absolute Auto 0.9 X10*3/uL (1.2-4.9); Lymphocytes Percent Auto 14.6 % (20-40); Mean Corpuscular HGB Conc 31.5 g/dl (31.0-35.0); Mean Corpuscular Hemoglobin 30.6 pg (27.0-33.0); Mean Corpuscular Volume 97.2 fL (80.0-98.0); Mean Platelet Volume 10.4 fL (9.4-12.3); Monocytes Absolute Auto 0.8 X10*3/uL (0.1-1.2); Monocytes Percent Auto 12.8 % (2-11); Neutrophils Absolute Auto 3.9 x10*3/uL (2.0-8.3); Neutrophils Percent Auto 62.7 % (45-73); Platelet Count 169 X10*3/uL (160-400); Red Blood Count 3.92 X10*6/uL (4.20-5.50); White Blood Count 6.2 X10*3/uL (4.8-10.8)
[2022-05-24 07:03] LABS: Anion Gap 19 (12-20); Blood Urea Nitrogen 69 mg/dL (9-16); Calcium 9.6 mg/dL (8.4-10.2); Carbon Dioxide 28 mmol/L (22-29); Chloride 97 mmol/L (96-108); Estimated Glomerular Filt Rate 11; Glucose Random 93 mg/dL (60-115); Potassium 5.6 mmol/L (3.3-5.1); Sodium 138 mmol/L (135-145)
== END 2022-05-24 06:29 | disposition home or self-care (01) ==
LOC: HO.MMNH3L 06:28
PROVIDERS: Visit Provider Family Medicine
DX: E11.42 Type 2 diabetes mellitus with diabetic polyneuropathy (principal); I10 Essential (primary) hypertension; R60.0 Localized edema
CPT/HCPCS: 36415; 80048; 85025

== ENCOUNTER 2022-05-31 06:04 | Outpatient (REF) | payer OTHER, SELFPAY ==
[2022-05-31 05:57] LABS: MANUAL DIFF FLAG NO
[2022-05-31 06:18] LABS: Basophils Absolute Auto 0.1 X10*3/uL (0.0-0.2); Basophils Percent Auto 0.8 % (0-2); Eosinophils Absolute Auto 0.6 X10*3/uL (0.0-0.4); Eosinophils Percent Auto 9.1 % (0-4); Hematocrit 39.7 % (37.0-47.0); Hemoglobin 12.5 g/dl (12.0-16.0); Imm Gran Abs Auto 0.01 X10*3/uL (0.00-0.03); Imm Gran Pct Auto 0.2 % (0.0-0.4); Lymphocytes Absolute Auto 1.4 X10*3/uL (1.2-4.9); Lymphocytes Percent Auto 21.3 % (20-40); Mean Corpuscular HGB Conc 31.5 g/dl (31.0-35.0); Mean Corpuscular Volume 95.2 fL (80.0-98.0); Mean Platelet Volume 9.9 fL (9.4-12.3); Monocytes Absolute Auto 0.7 X10*3/uL (0.1-1.2); Monocytes Percent Auto 10.7 % (2-11); Neutrophils Absolute Auto 3.8 x10*3/uL (2.0-8.3); Neutrophils Percent Auto 57.9 % (45-73); Platelet Count 165 X10*3/uL (160-400); Red Blood Count 4.17 X10*6/uL (4.20-5.50); White Blood Count 6.6 X10*3/uL (4.8-10.8)
[2022-05-31 07:13] LABS: Alanine Aminotransferase 14 U/L (0-31); Albumin Level 3.5 g/dL (3.5-5.0); Alkaline Phosphatase 105 U/L (39-117); Anion Gap 18 (12-20); Aspartate Amino Transferase 29 U/L (5-31); Bilirubin Total 0.7 mg/dL (0.0-1.0); Blood Urea Nitrogen 67 mg/dL (9-16); Calcium 9.3 mg/dL (8.4-10.2); Carbon Dioxide 24 mmol/L (22-29); Chloride 101 mmol/L (96-108); Glucose Random 105 mg/dL (60-115); Potassium 5.6 mmol/L (3.3-5.1); Sodium 137 mmol/L (135-145); Total Protein 6.2 g/dL (6.5-8.0)
[2022-05-31 07:30] LABS: Estimated Glomerular Filt Rate 10
== END 2022-05-31 06:05 | disposition home or self-care (01) ==
LOC: HO.MMNH3L 06:04
PROVIDERS: Visit Provider Family Medicine
DX: E11.42 Type 2 diabetes mellitus with diabetic polyneuropathy (principal); I10 Essential (primary) hypertension; R60.0 Localized edema
CPT/HCPCS: 36415; 80053; 85025

== ENCOUNTER → 2022-06-01 12:32 | Outpatient (BNVA) | payer OTHER, SELFPAY | PROVIDERS: PCP Internal Medicine; Visit Provider Internal Medicine ==

== ENCOUNTER 2022-06-01 13:11 | Inpatient (IN) | payer OTHER, SELFPAY ==
--- NOTE | ~2022-06-01 | CT_ITS ---
EXAMINATION: CT head/brain wo IV con CLINICAL INFORMATION: weakness COMPARISON: CT head 04/11/2022 TECHNIQUE: Contiguous axial imaging was performed from the skull base to vertex without intravenous contrast. Sagittal and coronal reformatted images were obtained. This CT examination was performed using dose optimization techniques as appropriate, variously including the following: * Automated exposure control * Adjustment of mA and/or kV according to patient size (this includes techniques or standardized protocols for targeted exams where dose is matched to indication/reason for exam; i.e. extremities or head) Use of iterative reconstruction technique DLP: 702 mGy-cm FINDINGS: Stable mild generalized parenchymal volume loss and moderate chronic microangiopathy. No territorial loss of ornelas-white differentiation. No acute intracranial hemorrhage or extra-axial fluid collection. No mass lesion, significant mass effect, or herniation pattern. Bilateral lens extractions. Leftward nasal septal deviation with leftward bony spur. Paranasal sinuses and mastoid air cells are well aerated. Osseous structures are intact. Edentulous maxillary alveolar ridge. Severe degenerative changes across the anterior atlantodental interval with mineralized retrodental ligamentous thickening. CT/CT head/brain wo IV con IMPRESSION: No acute intracranial abnormality. Specifically, no CT evidence of acute intracranial hemorrhage, significant mass effect, hydrocephalus, or large territorial infarction. Stable volume loss and chronic microangiopathy.
--- NOTE | ~2022-06-01 | CT_ITS ---
EXAMINATION: CT ABDOMEN AND PELVIS WITHOUT CONTRAST CLINICAL INFORMATION: Diffuse abdominal discomfort COMPARISON: CT abdomen pelvis 06/27/2019 TECHNIQUE: Multidetector volumetric imaging was performed from the superior aspect of the liver through the pubic symphysis. Sagittal and coronal reformatted images were obtained on the technologist's workstation. This CT examination was performed using dose optimization techniques as appropriate, variously including the following: *Automated exposure control *Adjustment of mA and/or kV according to patient size (this includes techniques or standardized protocols for targeted exams where dose is matched to indication/reason for exam; i.e. extremities or head) *Use of iterative reconstruction technique DLP: 682 mGy-cm FINDINGS: LUNG BASES: There is bandlike atelectasis right lower lobe. The heart size is normal. LIVER, GALLBLADDER, AND BILIARY TREE: The liver is enlarged in size with a lobulated contour consistent known ascites. No focal lesion or intrahepatic ductal dilatation seen. The gallbladder has hypodense gravel or small stones. No wall thickening seen. PANCREAS: Unremarkable. SPLEEN: Unremarkable. ADRENAL GLANDS: Unremarkable. KIDNEYS AND URETERS: The kidneys are normal in size, shape, and attenuation. No hydronephrosis, hydroureter, or calculi seen. No perinephric stranding. There is a partially exophytic 3.8 x 3.5 cm simple cyst lower pole right kidney. BLADDER: Unremarkable. GASTROINTESTINAL TRACT: There is scattered stool and gas seen throughout the colon without distention. The small bowel loops in the mesentery is unremarkable. ABDOMINAL WALL: There is prominent left umbilical and left inguinal hernia containing fat. LYMPH NODES: Normal. VASCULAR: There are abdomen and collateral vessels seen in the abdominal wall intraperitoneal likely varicose veins secondary to portal hypertension. PELVIC VISCERA: Unremarkable. OSSEOUS STRUCTURES: No aggressive lytic or sclerotic process seen. Mild ventral spondylosis lower dorsal spine. There is facet joint arthropathy left L5-S1, right L3-L4, L2-L3 disc levels.. CT/CT abdomen pelvis wo IV con IMPRESSION: 1. Hepatomegaly with lobulated contour consistent with cirrhosis. There is no ascites. 2. There is portal hypertension with collateral vessels in the anterior abdominal wall. 3. Left umbilical and left inguinal hernia containing fat. 4. Simple cyst lower pole right kidney. 5. No acute intra-abdominal process seen. Fleischner guidelines were followed.
[2022-06-01 13:26] VITALS: BP 141/69; BP 90/60; PULSE 105; PULSE 85; RESP 16; TEMP 36.6; O2SAT 96; BMI 32.7
--- NOTE | 2022-06-01 13:33 | ECG_ITS ---
Test Reason : weakness Blood Pressure : / mmHG Vent. Rate : 088 BPM Atrial Rate : 088 BPM P-R Int : 192 ms QRS Dur : 090 ms QT Int : 376 ms P-R-T Axes : 085 046 076 degrees QTc Int : 454 ms Normal sinus rhythm Septal infarct , ST elevation in Septal leads Abnormal ECG When compared with ECG of 21-AUG-2018 23:19, QRS axis Shifted left ST elevation now present in Septal leads Referred By: Bethany Waddell Electronically Signed By:CHANDRIKA MEEHAN MD
[2022-06-01] MEDS: 0.9 % Sodium Chloride 1,000 ML 999 ML IVCONT (14:02)
[2022-06-01 14:33] LABS: MANUAL DIFF FLAG NO
[2022-06-01 14:38] LABS: Basophils Percent Auto 0.5 % (0-2); Eosinophils Absolute Auto 0.6 X10*3/uL (0.0-0.4); Eosinophils Percent Auto 9.4 % (0-4); Hematocrit 40.8 % (37.0-47.0); Hemoglobin 12.9 g/dl (12.0-16.0); Imm Gran Abs Auto 0.01 X10*3/uL (0.00-0.03); Imm Gran Pct Auto 0.2 % (0.0-0.4); Lymphocytes Absolute Auto 0.8 X10*3/uL (1.2-4.9); Lymphocytes Percent Auto 13.5 % (20-40); Mean Corpuscular HGB Conc 31.6 g/dl (31.0-35.0); Mean Corpuscular Hemoglobin 30.6 pg (27.0-33.0); Mean Corpuscular Volume 96.9 fL (80.0-98.0); Mean Platelet Volume 9.5 fL (9.4-12.3); Monocytes Absolute Auto 0.4 X10*3/uL (0.1-1.2); Monocytes Percent Auto 7.1 % (2-11); Neutrophils Absolute Auto 4.3 x10*3/uL (2.0-8.3); Neutrophils Percent Auto 69.3 % (45-73); Platelet Count 139 X10*3/uL (160-400); Red Blood Count 4.21 X10*6/uL (4.20-5.50); Red Cell Distribution Width 15.1 % (11.0-16.0); White Blood Count 6.2 X10*3/uL (4.8-10.8)
[2022-06-01 14:42] LABS: INTERNATIONAL NORM RATIO 1.1 (0.9-1.1); Prothrombin Time 12.7 SEC (10.0-13.1)
--- NOTE | 2022-06-01 14:48 | PHA.MEDREC ---
Pharmacy Consult ? Medication Reconciliation Pharmacy has completed the medication reconciliation. Med rec complete using list from Darin Trievdi.
[2022-06-01 14:51] LABS: Lactic Acid 3.7 mmol/L (0.5-2.0)
[2022-06-01 14:52] LABS: COVID-19 Test Negative (Negative); IDNOW Serial# BCCEAD1C
[2022-06-01 15:01] LABS: Alanine Aminotransferase 15 U/L (0-31); Albumin Level 3.9 g/dL (3.5-5.0); Alkaline Phosphatase 118 U/L (39-117); Aspartate Amino Transferase 29 U/L (5-31); Bilirubin Direct 0.3 mg/dL (0.0-0.5); Bilirubin Total 0.8 mg/dL (0.0-1.0); Blood Urea Nitrogen 68 mg/dL (9-16); Glucose Random 79 mg/dL (60-115); Lipase 32 U/L (8-78); Magnesium 1.6 mg/dL (1.6-2.6); Total Protein 6.6 g/dL (6.5-8.0)
[2022-06-01 15:03] LABS: Anion Gap 20 (12-20); Carbon Dioxide 24 mmol/L (22-29); Chloride 100 mmol/L (96-108); Creatinine Clr Calc Pharmacy 10.2; Estimated Glomerular Filt Rate 10; Potassium 6.4 mmol/L (3.3-5.1); Sodium 138 mmol/L (135-145)
[2022-06-01 15:05] LABS: Troponin-I High Sensitivity 266.1 ng/L (<3.5-17.0)
--- NOTE | 2022-06-01 15:06 | ED.GENADULT ---
HPI - General Adult General Chief complaint: General Medical Stated complaint: norm lab/ decrease kidney function Time Seen by Provider: 06/01/22 13:23 Source: patient Mode of arrival: EMS Limitations: other (Poor historian) History of Present Illness HPI narrative: Patient comes to the emergency room from [facility]. Patient was seen today by Dr. Simmons in her office. Today, patient had a follow-up appointment. Patient reported that she has been having diarrhea for 23 days, feels ?unwell?, complaining of intermittent diffuse abdominal cramping. Denies any fever chills. Dr. Simmons discussed the patient with me prior to patient's arrival, the creatinine has been increasing; from an average of 1.8-4.2 in 3 weeks. Related Data Home Medications Medication Instructions Recorded Confirmed albuterol sulfate 90 mcg/actuation 2 puff inhalation Q4H PRN Wheezing 01/31/20 06/01/22 aerosol inhaler docusate sodium 100 mg capsule 100 mg PO BID PRN Constipation 01/31/20 06/01/22 insulin aspart U-100 100 unit/mL See Protocol subcut TID 01/31/20 06/01/22 (3 mL) subcutaneous pen lancets 33 gauge #100 ea 01/31/20 04/29/22 insulin glargine 100 unit/mL (3 25 unit subcut BEDTIME 09/15/20 06/01/22 mL) subcutaneous pen (Lantus Solostar U-100 Insulin) colchicine 0.6 mg tablet 0.6 mg PO DAILY 11/11/21 06/01/22 acetaminophen 325 mg tablet 650 mg PO Q6H PRN Fever Or Pain 06/01/22 06/01/22 allopurinol 300 mg tablet 300 mg PO DAILY 06/01/22 06/01/22 atorvastatin 20 mg tablet 20 mg PO BEDTIME 06/01/22 06/01/22 calcium carbonate 600 mg-vitamin 1 tab PO BID 06/01/22 06/01/22 D3 10 mcg (400 unit) tablet (Calcium 600 + D(3)) clonazepam 0.5 mg tablet 0.5 mg PO BEDTIME 06/01/22 06/01/22 escitalopram oxalate 5 mg tablet 5 mg PO DAILY 06/01/22 06/01/22 (Lexapro) furosemide 40 mg tablet 40 mg PO DAILY 06/01/22 06/01/22 gabapentin 800 mg tablet 800 mg PO Q6H 06/01/22 06/01/22 hydrocortisone-pramoxine 2.5 %-1 % 1 appl GA BID 06/01/22 06/01/22 rectal cream (Analpram-HC) liraglutide 0.6 mg/0.1 mL (18 mg/3 1.8 mg subcut BEDTIME 06/01/22 06/01/22 mL) subcutaneous pen injector (NewStep Networkstoza 3-Aric) metoclopramide HCl 5 mg tablet 5 mg PO TID 06/01/22 06/01/22 polyethylene glycol 3350 17 gram 17 g PO BID PRN Constipation 06/01/22 06/01/22 oral powder packet potassium chloride 20 mEq 20 meq PO DAILY 06/01/22 06/01/22 tablet,extended release psyllium husk 3.4 gram/5.4 gram 1 tsp PO DAILY 06/01/22 06/01/22 oral powder (Tiffanie-Mucil) tramadol 50 mg tablet 50 mg PO Q8H PRN MODERATE TO 06/01/22 06/01/22 SEVERE PAIN Previous Rx's Medication Instructions Recorded lancets 28 gauge (FreeStyle #100 ea 01/22/20 Lancets) ferrous sulfate 325 mg (65 mg 325 mg PO DAILY 90 days #90 tabs 09/03/20 iron) tablet,delayed release metformin 1,000 mg tablet 1,000 mg PO BID 90 days #180 tabs 09/18/20 pen needle, diabetic 32 gauge x #50 ea 09/25/20 montelukast 10 mg tablet 10 mg PO BEDTIME 90 days #90 tabs 10/18/20 grab bars #3 ea 10/28/20 blood-glucose meter (FreeStyle #1 ea 12/15/20 [place] Lite kit) losartan 50 mg tablet 50 mg PO DAILY 90 days #90 tabs 12/18/20 Allergies Allergy/AdvReac Type Severity Reaction Status Date / Time No Known Allergies Allergy Verified 06/01/22 12:45 Review of Systems Review of Systems: Constitutional : No Weight loss, No Fever, No Chills, No Night Sweats, complaining of fatigue, feeling unwell ENT/Mouth : No Hearing loss, No Ear Pain, No Nasal Congestion, No Sinus Pain, No Hoarseness, No sore throat, No Rhinorrhea, No Swallowing Difficulty Eyes: No Eye Pain, No Swelling, No Redness, No Foreign Body, No Discharge, No Vision Changes Cardiovascular : No Chest Pain, No SOB, No Dyspnea on Exertion, No Orthopnea, No Edema, No Palpitations Respiratory : No Cough, No Sputum, No Wheezing, No Smoke Exposure, No Dyspnea Gastrointestinal : No Nausea, No Vomiting, complaining of diarrhea for 3 days, diffuse abdominal cramping Genitourinary : no irregular bleeding, No Dysuria, No Urinary Frequency, No Hematuria, No Urinary Incontinence, No Urgency, No Flank Pain, No Urinary Flow Changes, No Hesitancy Musculoskeletal : No joint pain, No Myalgias, No Joint Swelling Skin : No Skin Lesions, No rash Neuro : No Weakness, No Numbness, No Paresthesias, No Loss of Consciousness, No Dizziness, No Headache Psych : No Anxiety/Panic, No Depression, No SI/HI/AH/VH, No Social Issues, Heme/Lymph: No Bruising, No Bleeding,No Lymphadenopathy Endocrine : No Polyuria, No Polydipsia, No Temperature Intolerance PMFSH Past Medical History Medical History Chronic alcoholic liver disease Constipation by delayed colonic transit Depression with anxiety Diabetes mellitus Essential hypertension Gout Hair loss Hearing loss HLD (hyperlipidemia) HTN (hypertension) Hypovitaminosis D Lumbar degenerative disc disease Lumbar radiculopathy Moderate asthma Neuropathy Numbness Pure hypercholesterolemia T2DM (type 2 diabetes mellitus) Umbilical hernia Surgical History H/O cervical biopsy History of appendectomy History of colonoscopy History of total abdominal hysterectomy and bilateral salpingo-oophorectomy Family History Family History Father Renal failure Mother Fatty liver Ovarian cancer Maternal Aunt Ovarian cancer Breast cancer Brother Colon cancer Social History Social History Housing: Apartment Alcohol intake: unknown Patient Tobacco Use Status: Former Tobacco user Tobacco use type: Cigarette Smoked in Last 30 Days: No e-Cigarette/Vaping Use: Never Used Second Hand Smoke Exposure: No Advance Directives: Yes Advance Directives on File: Yes Advance Directives Date on File: 12/22/20 service: No Current occupational status: employed Cognitive needs: No Hearing needs: No Vision needs: No Physical Exam ED Vital Signs: Vital Signs - 24 hr 06/01/22 13:26 06/01/22 16:09 06/01/22 16:24 Temperature 97.9 F Pulse Rate 85 67 94 Respiratory Rate 16 15 12 Blood Pressure 141/69 H 122/57 L Pulse Oximetry 96 94 Oxygen Delivery Method Room Air Room Air BMI result Body Mass Index 32.7 Const Other: Appearance: Alert. Oriented X3. No acute distress. Eyes: Pupils equal, round and reactive to light. ENT: Pharynx normal. Neck: Normal inspection. Neck supple. No lymph nodes noted. No crepitus CVS: Normal heart rate and rhythm. Pulses normal. Normal S1 and S2 Respiratory: No respiratory distress. Breath sounds normal. No Wheezing. No rales Abdomen: Soft , mild discomfort to palpation in all quadrants. No rigidity. No distention. Skin: Skin warm and dry. Patient has stage I pressure ulcers in the buttocks Extremities: No lower extremity edema. No Lacerations. No Rash Neuro: Oriented X 3. 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 Discontinued Medications Generic Name Dose Route Start Last Admin Trade Name Freq PRN Reason Stop Dose Admin Albuterol Sulfate 5 mg 06/01/22 15:44 06/01/22 16:08 Albuterol Sulfate (0.083%) 2.5 Mg/3 Ml Vial.Neb INHALE 06/01/22 15:45 5 mg ONCE ONE Administration Sodium Chloride 1,000 mls @ 999 mls/hr 06/01/22 13:33 06/01/22 15:05 Ns IVCONT 06/01/22 14:33 Infused .Q1H1M ONE Infusion Calcium Gluconate 2 gm in 100 mls @ 50 mls/hr 06/01/22 15:49 06/01/22 16:30 Calcium Gluconate IV 06/01/22 17:48 50 mls/hr ONCE ONE Administration Insulin Human Regular 5 unit 06/01/22 15:44 06/01/22 16:27 Insulin Regular, Human 100 Unit/Ml 3 Ml Vial IVPUSH 06/01/22 15:45 5 unit ONCE ONE Administration Ondansetron HCl 4 mg 06/01/22 15:51 06/01/22 16:07 Ondansetron Hcl 4 Mg/2 Ml Vial IVPUSH 06/01/22 15:52 4 mg ONCE ONE Administration Sodium Zirconium Cyclosilicate 10 gm 06/01/22 15:44 06/01/22 16:29 Sodium Zirconium Cyclosilicate 10 Gm Powd.Pack PO 06/01/22 15:45 10 gm ONCE ONE Administration Medical Decision Making Medical Decision Making MDM Narrative: -I discussed the patient with the internal medicine team. Discussed with the patient that pending on urine osmolarity and urine sodium, patient may need albumin/octreotide upper GIs request. -patient being admitted for acute kidney injury on chronic kidney disease, likely secondary to dehydration, Lasix, will likely need a Nephrology consult. -hyperkalemia, likely secondary to renal failure. Patient was started on Lokelma, given D50 and insulin, albuterol neb treatment -diarrhea -lactic acidosis, likely multifactorial, combination of renal failure, metformin, sepsis not suspected Admission/Observation Consideration of admission/observation: Escalation of care including admission/observation considered Consult Healthcare Provider Management of the patient was discussed with: Hospitalist Lab Data [facility] Lab Attestation statement: I reviewed the patient's lab results. 06/01/22 14:25 06/01/22 14:25 Labs: Lab Results 06/01/22 06/01/22 06/01/22 Range/Units 14:25 14:25 14:25 WBC 6.2 (4.8-10.8) X10*3/uL RBC 4.21 (4.20-5.50) X10*6/uL Hgb 12.9 (12.0-16.0) g/dl Hct 40.8 (37.0-47.0) % MCV 96.9 (80.0-98.0) fL MCH 30.6 (27.0-33.0) pg MCHC 31.6 (31.0-35.0) g/dl RDW 15.1 (11.0-16.0) % Plt Count 139 L (160-400) X10*3/uL MPV 9.5 (9.4-12.3) fL Immature Gran % (Auto) 0.2 (0.0-0.4) % Neut % (Auto) 69.3 (45-73) % Lymph % (Auto) 13.5 L (20-40) % [place] % (Auto) 7.1 (2-11) % Eos % (Auto) 9.4 H (0-4) % Baso % (Auto) 0.5 (0-2) % Lymph # (Auto) 0.8 L (1.2-4.9) X10*3/uL [place] # (Auto) 0.4 (0.1-1.2) X10*3/uL Eos # (Auto) 0.6 H (0.0-0.4) X10*3/uL Baso # (Auto) 0.0 (0.0-0.2) X10*3/uL Abs Immat Gran (auto) 0.01 (0.00-0.03) X10*3/uL Absolute Neuts (auto) 4.3 (2.0-8.3) x10*3/uL Absolute Nucleated RBC 0.000 (0.0-0.012) X10*3/uL Nucleated RBC % (auto) 0.0 (0.0-0.2) /100WBC PT (10.0-13.1) SEC INR (0.9-1.1) Sodium 138 (135-145) mmol/L Potassium 6.4 H* (3.3-5.1) mmol/L Chloride 100 (96-108) mmol/L Carbon Dioxide 24 (22-29) mmol/L Anion Gap 20 (12-20) BUN 68 H (9-16) mg/dL Creatinine 4.30 H* (0.5-1.4) mg/dL Estim Creat Clear Calc 10.2 Estimated GFR 10 Random Glucose 79 (60-115) mg/dL Lactic Acid (0.5-2.0) mmol/L Lactic Acid F/U @ 2Hr (0.5-2.0) mmol/L Calcium 10.0 D (8.4-10.2) mg/dL Magnesium 1.6 (1.6-2.6) mg/dL Total Bilirubin 0.8 (0.0-1.0) mg/dL Direct Bilirubin 0.3 (0.0-0.5) mg/dL AST 29 (5-31) U/L ALT 15 (0-31) U/L Alkaline Phosphatase 118 H (39-117) U/L Troponin I High Sens (<3.5-17.0) ng/L Total Protein 6.6 (6.5-8.0) g/dL Albumin 3.9 (3.5-5.0) g/dL Lipase 32 (8-78) U/L COVID-19 (LASHELL) Negative (Negative) COVID-19 Clin Com See Note 06/01/22 06/01/22 06/01/22 Range/Units 14:25 14:25 14:25 WBC (4.8-10.8) X10*3/uL RBC (4.20-5.50) X10*6/uL Hgb (12.0-16.0) g/dl Hct (37.0-47.0) % MCV (80.0-98.0) fL MCH (27.0-33.0) pg MCHC (31.0-35.0) g/dl RDW (11.0-16.0) % Plt Count (160-400) X10*3/uL MPV (9.4-12.3) fL Immature Gran % (Auto) (0.0-0.4) % Neut % (Auto) (45-73) % Lymph % (Auto) (20-40) % [place] % (Auto) (2-11) % Eos % (Auto) (0-4) % Baso % (Auto) (0-2) % Lymph # (Auto) (1.2-4.9) X10*3/uL [place] # (Auto) (0.1-1.2) X10*3/uL Eos # (Auto) (0.0-0.4) X10*3/uL Baso # (Auto) (0.0-0.2) X10*3/uL Abs Immat Gran (auto) (0.00-0.03) X10*3/uL Absolute Neuts (auto) (2.0-8.3) x10*3/uL Absolute Nucleated RBC (0.0-0.012) X10*3/uL Nucleated RBC % (auto) (0.0-0.2) /100WBC PT 12.7 (10.0-13.1) SEC INR 1.1 (0.9-1.1) Sodium (135-145) mmol/L Potassium (3.3-5.1) mmol/L Chloride (96-108) mmol/L Carbon Dioxide (22-29) mmol/L Anion Gap (12-20) BUN (9-16) mg/dL Creatinine (0.5-1.4) mg/dL Estim Creat Clear Calc Estimated GFR Random Glucose (60-115) mg/dL Lactic Acid 3.7 H* (0.5-2.0) mmol/L Lactic Acid F/U @ 2Hr (0.5-2.0) mmol/L Calcium (8.4-10.2) mg/dL Magnesium (1.6-2.6) mg/dL Total Bilirubin (0.0-1.0) mg/dL Direct Bilirubin (0.0-0.5) mg/dL AST (5-31) U/L ALT (0-31) U/L Alkaline Phosphatase (39-117) U/L Troponin I High Sens 266.1 H* (<3.5-17.0) ng/L Total Protein (6.5-8.0) g/dL Albumin (3.5-5.0) g/dL Lipase (8-78) U/L COVID-19 (LASHELL) (Negative) COVID-19 Clin Com 06/01/22 Range/Units 16:45 WBC (4.8-10.8) X10*3/uL RBC (4.20-5.50) X10*6/uL Hgb (12.0-16.0) g/dl Hct (37.0-47.0) % MCV (80.0-98.0) fL MCH (27.0-33.0) pg MCHC (31.0-35.0) g/dl RDW (11.0-16.0) % Plt Count (160-400) X10*3/uL MPV (9.4-12.3) fL Immature Gran % (Auto) (0.0-0.4) % Neut % (Auto) (45-73) % Lymph % (Auto) (20-40) % [place] % (Auto) (2-11) % Eos % (Auto) (0-4) % Baso % (Auto) (0-2) % Lymph # (Auto) (1.2-4.9) X10*3/uL [place] # (Auto) (0.1-1.2) X10*3/uL Eos # (Auto) (0.0-0.4) X10*3/uL Baso # (Auto) (0.0-0.2) X10*3/uL Abs Immat Gran (auto) (0.00-0.03) X10*3/uL Absolute Neuts (auto) (2.0-8.3) x10*3/uL Absolute Nucleated RBC (0.0-0.012) X10*3/uL Nucleated RBC % (auto) (0.0-0.2) /100WBC PT (10.0-13.1) SEC INR (0.9-1.1) Sodium (135-145) mmol/L Potassium (3.3-5.1) mmol/L Chloride (96-108) mmol/L Carbon Dioxide (22-29) mmol/L Anion Gap (12-20) BUN (9-16) mg/dL Creatinine (0.5-1.4) mg/dL Estim Creat Clear Calc Estimated GFR Random Glucose (60-115) mg/dL Lactic Acid (0.5-2.0) mmol/L Lactic Acid F/U @ 2Hr 3.3 H* (0.5-2.0) mmol/L Calcium (8.4-10.2) mg/dL Magnesium (1.6-2.6) mg/dL Total Bilirubin (0.0-1.0) mg/dL Direct Bilirubin (0.0-0.5) mg/dL AST (5-31) U/L ALT (0-31) U/L Alkaline Phosphatase (39-117) U/L Troponin I High Sens (<3.5-17.0) ng/L Total Protein (6.5-8.0) g/dL Albumin (3.5-5.0) g/dL Lipase (8-78) U/L COVID-19 (LASHELL) (Negative) COVID-19 Clin Com Radiology Impression Discussion of test interpretation with radiology: I have reviewed the radiologist's reading. Radiologist Impression: FINDINGS: LUNG BASES: There is bandlike atelectasis right lower lobe. The heart size is normal.? LIVER, GALLBLADDER, AND BILIARY TREE: The liver is enlarged in size with a lobulated contour consistent known ascites. No focal lesion or intrahepatic ductal dilatation seen. The gallbladder has hypodense gravel or small stones. No wall thickening seen. PANCREAS: Unremarkable.? SPLEEN: Unremarkable.? ADRENAL GLANDS: Unremarkable.? KIDNEYS AND URETERS: The kidneys are normal in size, shape, and attenuation. No hydronephrosis, hydroureter, or calculi seen. No perinephric stranding. There is a partially exophytic 3.8 x 3.5 cm simple cyst lower pole right kidney. BLADDER: Unremarkable.? GASTROINTESTINAL TRACT: There is scattered stool and gas seen throughout the colon without distention. The small bowel loops in the mesentery is unremarkable.? ABDOMINAL WALL: There is prominent left umbilical and left inguinal hernia containing fat. LYMPH NODES: Normal. VASCULAR: There are abdomen and collateral vessels seen in the abdominal wall intraperitoneal likely varicose veins secondary to portal hypertension. PELVIC VISCERA: Unremarkable.? OSSEOUS STRUCTURES: No aggressive lytic or sclerotic process seen. Mild ventral spondylosis lower dorsal spine. There is facet joint arthropathy left L5-S1, right L3-L4, L2-L3 disc levels.. CT/CT abdomen pelvis wo IV con IMPRESSION: 1.? Hepatomegaly with lobulated contour consistent with cirrhosis. There is no ascites. 2.? There is portal hypertension with collateral vessels in the anterior abdominal wall. 3.? Left umbilical and left inguinal hernia containing fat. 4.? Simple cyst lower pole right kidney. 5.? No acute intra-abdominal process seen. ? Critical Care Time Critical Care Time Critical Care Time: Yes Total Critical Care Time: 60 Attestation: I have personally provided critical care time. Time includes review of lab data, radiology results, discussion with consultants, and monitoring for potential decompensation. Intervention performed as documented. Discharge Plan Discharge Clinical Impression: Acute kidney injury superimposed on CKD, Acute hyperkalemia, Diarrhea, Elevated lactic acid level Patient Disposition: Admitted As Inpatient Prescriptions: No Action (DME) lancets [FreeStyle Lancets] 28 gauge misc See Rx Instructions .ROUTE .MEDSUPPLY Qty: 100 11RF Hold Instructions: patient's request Rx Instructions: As directed ferrous sulfate 325 mg (65 mg iron) tablet,delayed release (DR/EC) 325 mg PO DAILY 90 Days Qty: 90 1RF metformin 1,000 mg tablet 1,000 mg PO BID 90 Days Qty: 180 3RF (DME) pen needle, diabetic 32 gauge x 5/32 needle See Rx Instructions .ROUTE TID Qty: 50 11RF Rx Instructions: As directed montelukast 10 mg tablet 10 mg PO BEDTIME 90 Days Qty: 90 1RF (DME) grab bars See Rx Instructions .Route .MEDSUPPLY Qty: 3 0RF Rx Instructions: As directed (DME) blood-glucose meter [FreeStyle [place] Lite] Kit See Rx Instructions .ROUTE .MEDSUPPLY Qty: 1 0RF Rx Instructions: 3 x/day losartan 50 mg tablet 50 mg PO DAILY 90 Days Qty: 90 3RF furosemide 40 mg Tablet 40 mg PO DAILY metoclopramide HCl 5 mg Tablet 5 mg PO TID hydrocortisone-pramoxine [Analpram-HC] 2.5-1 % Cream 1 appl GA BID escitalopram oxalate [Lexapro] 5 mg Tablet 5 mg PO DAILY Tiffanie-Mucil 3.4 gram/5.4 gram Powder 1 tsp PO DAILY Rx Instructions: mix into at least 4 oz water or juice before administering tramadol 50 mg tablet 50 mg PO Q8H PRN (Reason: MODERATE TO SEVERE PAIN) acetaminophen 325 mg Tablet 650 mg PO Q6H PRN (Reason: Fever Or Pain) polyethylene glycol 3350 [GlycoLax] 17 gram Powder In Packet 17 g PO BID PRN (Reason: Constipation) potassium chloride 20 mEq Tablet Extended Release 20 meq PO DAILY clonazepam 0.5 mg tablet 0.5 mg PO BEDTIME gabapentin 800 mg Tablet 800 mg PO Q6H atorvastatin 20 mg tablet 20 mg PO BEDTIME allopurinol 300 mg Tablet 300 mg PO DAILY calcium carbonate-vitamin D3 [Calcium 600 + D(3)] 600 mg-10 mcg (400 unit) Tablet 1 tab PO BID Victoza 3-Aric 0.6 mg/0.1 mL (18 mg/3 mL) pen injector 1.8 mg subcut BEDTIME docusate sodium 100 mg capsule 100 mg PO BID PRN (Reason: Constipation) (DME) lancets 33 gauge misc See Rx Instructions .ROUTE .MEDSUPPLY Qty: 100 Hold Instructions: patient's request Rx Instructions: As directed insulin aspart U-100 100 unit/mL (3 mL) insulin pen See Protocol subcut TID Protocol: Insulin Correction Scale Less than or equal to 110 ---- Give (units): 0 111 to 150 Give (units): 0 151 to 200 Give (units): 0 201 to 250 Give (units): 3 251 to 300 Give (units): 4 301 to 350 Give (units): 6 Greater than 350 Give (units): 9 Call MD if Blood Glucose > : 350 albuterol sulfate 90 mcg/actuation HFA aerosol inhaler 2 puff inhalation Q4H PRN (Reason: Wheezing) Lydia Stokesar U-100 Insulin 100 unit/mL (3 mL) insulin pen 25 unit subcut BEDTIME colchicine 0.6 mg tablet 0.6 mg PO DAILY
[2022-06-01] MEDS: ondansetron HCL 4 MG/2 ML VIAL IVPUSH (16:07)
[2022-06-01] MEDS: Albuterol Sulfate (0.083%) 2.5 MG/3 ML VIAL.NEB 5 MG INHALE (16:08)
[2022-06-01 16:09] VITALS: PULSE 67; RESP 15; O2SAT 94
[2022-06-01] MEDS: Dextrose 10 % 250 ML 750 ML IV (16:12)
[2022-06-01 16:24] VITALS: BP 122/57; PULSE 94; RESP 12; O2SAT 94
[2022-06-01] MEDS: Insulin Regular, Human 100 UNIT/ML 3 ML VIAL IVPUSH (16:27)
[2022-06-01] MEDS: Sodium Zirconium Cyclosilicate 10 GM POWD.PACK PO (16:29)
[2022-06-01] MEDS: Calcium Gluconate/NaCl,Iso-Osm 2 GM/100 ML PLAST..BAG IV (16:30)
[2022-06-01 16:31] LABS: Reflex Lactate? Lactic Acid Added
--- NOTE | 2022-06-01 16:48 | PM.IMHP ---
History of Present Illness Date of Service: 06/01/22 Chief Complaint: Diarrhea, renal failure and hyperkalemia This is a 76-year-old female with multiple medical problem as listed below and notable for for CKD, HTN, HLD, l history of alcohol and nonalcoholic liver disease that has led to cirrhosis. She reside at [facility] and was brought to GI clinic for evaluation of ongoing diarrhea for x 3 weeks, nausea, vomitting , reduce apetite and generally unwell, and 20 Ib weight loss. Labs noted to be abnormal including creatinine of 4.3 which steadily up from march at around 1.8, additionally potassium is 6.4. She reportedly have been geting weekly IVF hydration at [facility] under the supervision of Nephrology but no improvement in renal function. As result of poor mobility, she has develloped pressure Review of Systems Review of Systems: Gen: no fever Resp: no sob, no cough CV: no chest, no THAKKAR, no leg edema GI: No n/v, no abd pain Neuro: No confusion [facility] Medical History Chronic alcoholic liver disease Constipation by delayed colonic transit Depression with anxiety Diabetes mellitus Essential hypertension Gout Hair loss Hearing loss HLD (hyperlipidemia) HTN (hypertension) Hypovitaminosis D Lumbar degenerative disc disease Lumbar radiculopathy Moderate asthma Neuropathy Numbness Pure hypercholesterolemia T2DM (type 2 diabetes mellitus) Umbilical hernia Family History Father Renal failure Mother Fatty liver Ovarian cancer Maternal Aunt Ovarian cancer Breast cancer Brother Colon cancer Surgical History H/O cervical biopsy History of appendectomy History of colonoscopy History of total abdominal hysterectomy and bilateral salpingo-oophorectomy Social History Household Members: None Housing: Detention Do you presently have visiting nurse or other home services: No Alcohol intake: unknown Patient Tobacco Use Status: Former Tobacco user Tobacco use type: Cigarette Smoked in Last 30 Days: No e-Cigarette/Vaping Use: Never Used Patient Interested in Nicotine Replacement: No Patient Given Instructions on How to Stop Smoking: No Second Hand Smoke Exposure: No Use of substances other than those prescribed or required for medical reasons: No Currently Displaying Signs/Symptoms of Drug Intoxication Withdrawal: No Any prior treatment program specific to substance use: No Have you been hit, kicked, punched, or otherwise hurt by someone within the past year? If so, by whom?: No Do you feel safe in your current relationship?: No Is there a partner from a previous relationship who is making you feel unsafe now?: No Are you made to feel afraid or neglected: No Advance Directives: Yes Advance Directives Information Provided: No Advance Directives on File: Yes Advance Directives Date on File: 12/22/20 Do you have thoughts of harming others: None Do you have a plan to hurt others: No Plan Recently lost weight without trying: Yes How much weight loss: 14-23 pounds Nutrition Risks: No Nutritional Risk Patient : No : No Poor oral hygiene: No service: No Current occupational status: employed Cognitive needs: No Hearing needs: No Vision needs: No Meds Allergies Allergy/AdvReac Type Severity Reaction Status Date / Time No Known Allergies Allergy Verified 06/01/22 12:45 Active Medications: Current Medications Dextrose (D10) 250 mls @ 750 mls/hr IV Q15M PRN PRN Reason: per Hypoglycemia Standing Ord. Last Admin: 06/01/22 16:12 Dose: 750 mls/hr Calcium Gluconate (Calcium Gluconate) 2 gm in 100 mls @ 50 mls/hr IV ONCE ONE Stop: 06/01/22 17:48 Last Admin: 06/01/22 16:30 Dose: 50 mls/hr Pharmacy Consult (Consult Rx Perform Med Rec) 1 each MISCELLANE ONCE PRN PRN Reason: Consult order Home Medications Medication Instructions Recorded Confirmed Last Taken Type albuterol sulfate 90 mcg/actuation 2 puff inhalation Q4H PRN Wheezing 01/31/20 06/01/22 12/19/20 History aerosol inhaler docusate sodium 100 mg capsule 100 mg PO BID PRN Constipation 01/31/20 06/01/22 12/19/20 History insulin aspart U-100 100 unit/mL See Protocol subcut TID 01/31/20 06/01/22 Unknown History (3 mL) subcutaneous pen lancets 33 gauge #100 ea 01/31/20 04/29/22 Unknown History insulin glargine 100 unit/mL (3 25 unit subcut BEDTIME 09/15/20 06/01/22 12/19/20 History mL) subcutaneous pen (Lantus Solostar U-100 Insulin) colchicine 0.6 mg tablet 0.6 mg PO DAILY 11/11/21 06/01/22 Unknown History acetaminophen 325 mg tablet 650 mg PO Q6H PRN Fever Or Pain 06/01/22 06/01/22 Unknown History allopurinol 300 mg tablet 300 mg PO DAILY 06/01/22 06/01/22 Unknown History atorvastatin 20 mg tablet 20 mg PO BEDTIME 06/01/22 06/01/22 Unknown History calcium carbonate 600 mg-vitamin 1 tab PO BID 06/01/22 06/01/22 Unknown History D3 10 mcg (400 unit) tablet (Calcium 600 + D(3)) clonazepam 0.5 mg tablet 0.5 mg PO BEDTIME 06/01/22 06/01/22 Unknown History escitalopram oxalate 5 mg tablet 5 mg PO DAILY 06/01/22 06/01/22 Unknown History (Lexapro) furosemide 40 mg tablet 40 mg PO DAILY 06/01/22 06/01/22 Unknown History gabapentin 800 mg tablet 800 mg PO Q6H 06/01/22 06/01/22 Unknown History hydrocortisone-pramoxine 2.5 %-1 % 1 appl MS BID 06/01/22 06/01/22 Unknown History rectal cream (Analpram-HC) liraglutide 0.6 mg/0.1 mL (18 mg/3 1.8 mg subcut BEDTIME 06/01/22 06/01/22 Unknown History mL) subcutaneous pen injector (Victoza 3-Aric) metoclopramide HCl 5 mg tablet 5 mg PO TID 06/01/22 06/01/22 Unknown History polyethylene glycol 3350 17 gram 17 g PO BID PRN Constipation 06/01/22 06/01/22 Unknown History oral powder packet potassium chloride 20 mEq 20 meq PO DAILY 06/01/22 06/01/22 Unknown History tablet,extended release psyllium husk 3.4 gram/5.4 gram 1 tsp PO DAILY 06/01/22 06/01/22 Unknown History oral powder (Tiffanie-Mucil) tramadol 50 mg tablet 50 mg PO Q8H PRN MODERATE TO 06/01/22 06/01/22 Unknown History SEVERE PAIN Physical Exam Vital Signs and Narrative: Vital Signs: Last Vital Signs Temp 97.9 F 06/01/22 13:26 Pulse 94 06/01/22 16:24 Resp 12 06/01/22 16:24 BP 122/57 L 06/01/22 16:24 Pulse Ox 94 06/01/22 16:24 O2 Del Method Room Air 06/01/22 16:24 BMI result Body Mass Index 32.7 Const: Other: Constitutional: Alert, in no distress, Mental Status: Oriented to person, place and time. Eyes: Pupils are equal, round and reactive to light.Trachea midline. Respiratory: Clear to auscultation. No wheezing, rales or rhonchi. Cardiovascular: S1 S2 regular. No murmurs, rubs or gallops. Gastrointestinal: Abdomen soft, non-tender, non-distended. Normal bowel sounds.? Neurologic: Cranial nerves II-XII grossly intact. No focal neurological deficits. Moves all extremities spontaneously.? Skin: No rashes or lesions.? Musculoskeletal: No cyanosis or clubbing. Psychiatric: Normal mood and affect? Results Labs 06/01/22 14:25 06/01/22 14:25 Labs: Laboratory Results - last 24 hr 06/01/22 06/01/22 06/01/22 14:25 14:25 14:25 MCV 96.9 MCH 30.6 MCHC 31.6 RDW 15.1 Plt Count 139 L MPV 9.5 Immature Gran % (Auto) 0.2 Neut % (Auto) 69.3 Lymph % (Auto) 13.5 L Henderson % (Auto) 7.1 Eos % (Auto) 9.4 H Baso % (Auto) 0.5 Lymph # (Auto) 0.8 L Henderson # (Auto) 0.4 Eos # (Auto) 0.6 H Baso # (Auto) 0.0 Abs Immat Gran (auto) 0.01 Absolute Neuts (auto) 4.3 Absolute Nucleated RBC 0.000 Nucleated RBC % (auto) 0.0 PT INR Anion Gap 20 Estim Creat Clear Calc 10.2 Estimated GFR 10 Random Glucose 79 Lactic Acid Calcium 10.0 D Magnesium 1.6 Total Bilirubin 0.8 Direct Bilirubin 0.3 AST 29 ALT 15 Alkaline Phosphatase 118 H Troponin I High Sens Total Protein 6.6 Albumin 3.9 Lipase 32 COVID-19 ([facility]LL) Negative COVID-19 Clin Com See Note 04/11/23 04/11/23 04/11/23 14:25 14:25 14:25 MCV MCH MCHC RDW Plt Count MPV Immature Gran % (Auto) Neut % (Auto) Lymph % (Auto) Henderson % (Auto) Eos % (Auto) Baso % (Auto) Lymph # (Auto) Henderson # (Auto) Eos # (Auto) Baso # (Auto) Abs Immat Gran (auto) Absolute Neuts (auto) Absolute Nucleated RBC Nucleated RBC % (auto) PT 12.7 INR 1.1 Anion Gap Estim Creat Clear Calc Estimated GFR Random Glucose Lactic Acid 3.7 H* Calcium Magnesium Total Bilirubin Direct Bilirubin AST ALT Alkaline Phosphatase Troponin I High Sens 266.1 H* Total Protein Albumin Lipase COVID-19 ([facility]LL) COVID-19 Clin Com Imaging Radiologist's Impressions: Impressions Abdomen/Pelvis CT 06/01/22 13:52 IMPRESSION: 1. Hepatomegaly with lobulated contour consistent with cirrhosis. There is no ascites. 2. There is portal hypertension with collateral vessels in the anterior abdominal wall. 3. Left umbilical and left inguinal hernia containing fat. 4. Simple cyst lower pole right kidney. 5. No acute intra-abdominal process seen. Fleischner guidelines were followed. Assessment and Plan (1) Acute kidney injury: Status: Acute (2) CKD (chronic kidney disease), stage IV: Status: Acute Plan 77/F with CKD, Cirrhosis, HTN, HLD, cirrhosis, here with TISHA and CKD--likely multifactorial, including dehydration, Lasix, Losartan. IV fluid and repeat tomorrow. Neoprhology consult Hyperkalemia--Hyperkalemia d/trenal failure, K supplement and Losartan. Stop Losartan and K supplement, Lokelma and repeat level Diarrhea--not sure what the cause is, check GI panel and C dif, hydrate and stop Colchicine Acute lactic acidosis--d/t renal failure and Metformin which is bein discontinued Dehydration--IVF HTN--stop Losartan, Norvasc if needed HLD--Lipitor weight loss d/t diarrhea Diabetes--Hold Metformin and Victoza, sliding insulin and if BS too high add Lantus Time Spent With Patient Time: Total time managing care of this patient today ____ minutes. Quality Stroke Does the patient have a stroke diagnosis?: No VTE Prior VTE?: No VTE Risk Level:: Medical - moderate - high VTE Device Contraindication: Treatment Not Indicated VTE Drug Contraindication: N/A - Med Ordered
[2022-06-01 17:13] LABS: ~Lactic Acid-LAB USE ONLY 3.3 mmol/L (0.5-2.0)
[2022-06-01 18:09] LABS: Appearance Urine Clear; Color Urine Yellow; Glucose Urine UA Negative (Negative); Leukocyte Esterase Urine Negative (Negative); Nitrite Urine Negative (Negative); Urine Blood Negative (Negative); Urine Ketones Negative (Negative); Urine Protein Negative (Neg-Trace)
[2022-06-01 18:49] LABS: Reflex Lactate? 2 Y
[2022-06-01 19:27] VITALS: BP 101/61; PULSE 106; RESP 15; TEMP 36.4; O2SAT 98
--- NOTE | 2022-06-01 19:31 | PC.NURSE ---
Assumed care for pt. Pt aox3 resting at the bedside. Breaths are even and unlabored. Sinus tach on monitor with HR 106. Reports increased shaking of the head and neck. Pt reports shaking will decrease with head repositioned. Pt repositioned in the bed and shaking stopped. POC 100. VSS. Medicated as ordered. Pt tolerated well.
[2022-06-01] MEDS: Sodium Chloride 0.45 % 1,000 ML 150 ML IVCONT (19:34)
[2022-06-01] MEDS: Heparin Sodium,Porcine 5,000 UNIT/ML VIAL 5000 UNIT SUBCUT (19:34)
[2022-06-01 19:36] LABS: Glucose, Whole Blood 100 mg/dL (60-115)
[2022-06-01 19:52] LABS: ~Lactic Acid-LAB USE ONLY 7.4 mmol/L (0.5-2.0)
--- NOTE | 2022-06-01 19:54 | PC.NURSE ---
Critical result received by Kimberly from the lab: Lactic acid 7.4. Watts text sent to Dr. Valiente. No new orders received.
--- NOTE | 2022-06-01 20:27 | MHC.EDTECH ---
i took over this assignment., the pure wick was put in and vitals were taken, she was put on the bed blancas to try to move her bowels, she was taken off bedpan only a smear
[2022-06-01] MEDS: 0.9 % Sodium Chloride 500 ML IV (20:30)
--- NOTE | 2022-06-01 20:52 | PC.NURSE ---
RN to RN report given to nurse David. Pt being transferred to room 443 and aware of plan of care. [place] text sent to hospital transport.
[2022-06-01 21:49] VITALS: BP 102/59; PULSE 94; RESP 13; TEMP 36; O2SAT 97
[2022-06-01 22:13] LABS: Glucose, Whole Blood 93 mg/dL (60-115)
[2022-06-01] MEDS: Metoclopramide HCl 5 MG TABLET PO (22:18)
[2022-06-01] MEDS: clonazePAM 0.5 MG TABLET PO (22:18)
[2022-06-01] MEDS: Atorvastatin Calcium 20 MG TABLET PO (22:18)
[2022-06-01] MEDS: Calcium + Vitamin D 250 MG TABLET 500 MG PO (22:18)
[2022-06-01] MEDS: Insulin Glargine,Hum.rec.anlog 100 UNIT/ML 10 ML VIAL 25 UNIT SUBCUT (22:19)
[2022-06-01] MEDS: Montelukast Sodium 10 MG TABLET PO (22:38)
[2022-06-01] MEDS: Gabapentin 400 MG CAPSULE 800 MG PO (22:38)
[2022-06-01 23:41] VITALS: BP 112/49; PULSE 96; RESP 14; TEMP 36.1; O2SAT 95
[2022-06-02] MEDS: traMADoL HCL 50 MG TABLET PO ×2 (02:22→22:33)
[2022-06-02 03:52] VITALS: BP 118/47; PULSE 80; RESP 16; TEMP 36.2; O2SAT 98
[2022-06-02 04:10] LABS: CDiff Gene PCR NEGATIVE (Negative)
[2022-06-02] MEDS: Sodium Chloride 0.45 % 1,000 ML 150 ML IVCONT ×3 (04:40→18:42)
[2022-06-02] MEDS: Heparin Sodium,Porcine 5,000 UNIT/ML VIAL 5000 UNIT SUBCUT ×2 (06:13→17:20)
[2022-06-02 06:35] LABS: Anion Gap 18 (12-20); Blood Urea Nitrogen 57 mg/dL (9-16); Calcium 9.4 mg/dL (8.4-10.2); Carbon Dioxide 21 mmol/L (22-29); Chloride 102 mmol/L (96-108); Creatinine Clr Calc Pharmacy 12.7; Estimated Glomerular Filt Rate 13; Glucose Random 86 mg/dL (60-115); Potassium 5.3 mmol/L (3.3-5.1); Sodium 136 mmol/L (135-145)
[2022-06-02 07:17] LABS: Glucose, Whole Blood 79 mg/dL (60-115)
[2022-06-02 07:18] VITALS: BP 102/43; PULSE 72; RESP 18; TEMP 36; O2SAT 94
--- NOTE | 2022-06-02 07:23 | P.PNIM_ITS ---
Subjective Subjective Date of Service: 06/03/22 Interval History: f/u on tisha, hyperkalemia, diarrhea interval histrory has no new complaint, no diarrhea, still feels generally weak but overall better Physical Exam Vital Signs: Vital Signs: Last Vital Signs Temp 97.2 F 06/02/22 03:52 Pulse 80 06/02/22 03:52 Resp 16 06/02/22 03:52 BP 118/47 L 06/02/22 03:52 Pulse Ox 98 06/02/22 03:52 O2 Del Method Room Air 06/02/22 03:52 BMI result Body Mass Index 32.7 Const: Other: General: AO X 3, no acute distress Resp: CTA bilateral CVS: S1,S2,RRR GI: +BS, NT, no distention Skin: No rash Neuro: motor grossly intact, but generally weak--moves both legs but minimally, complet arm movement Psych: appropriate affect Objective Data Active Medications Acetaminophen (Acetaminophen 325 Mg Tablet) 650 mg PO Q6H PRN PRN Reason: Fever Or Pain Albuterol Sulfate (Albuterol Sulfate 90 Mcg 8 Gm Inhaler) 2 puff INHALE Q4H PRN PRN Reason: Wheezing Allopurinol (Allopurinol 300 Mg Tablet) 300 mg PO DAILY [facility] Atorvastatin Calcium (Atorvastatin Calcium 20 Mg Tablet) 20 mg PO BEDTIME [facility] Last Admin: 06/01/22 22:18 Dose: 20 mg Documented By: VIDA Calcium Carbonate/Cholecalciferol (Calcium + Vitamin D 250 Mg Tablet) 500 mg PO BID [facility] Last Admin: 06/01/22 22:18 Dose: 500 mg Documented By: IVDA Clonazepam (Clonazepam 0.5 Mg Tablet) 0.5 mg PO BEDTIME [facility] Last Admin: 06/01/22 22:18 Dose: 0.5 mg Documented By: VIDA Docusate Sodium (Docusate Sodium 100 Mg Capsule) 100 mg PO BID PRN PRN Reason: Constipation Escitalopram Oxalate (Escitalopram Oxalate 5 Mg Tablet) 5 mg PO DAILY [facility] Ferrous Sulfate (Ferrous Sulfate 324 Mg Tablet.) 324 mg PO DAILY [facility] Gabapentin (Gabapentin 400 Mg Capsule) 800 mg PO QID [facility] Last Admin: 06/01/22 22:38 Dose: 800 mg Documented By: VIDA Heparin Sodium (Porcine) (Heparin Sodium,Porcine 5,000 Unit/Ml Vial) 5,000 unit SUBCUT Q12H [facility] Last Admin: 06/02/22 06:13 Dose: 5,000 unit Documented By: VIDA Dextrose (D10) 250 mls @ 750 mls/hr IV Q15M PRN PRN Reason: per Hypoglycemia Standing Ord. Last Infusion: 06/01/22 17:08 Dose: 0 mls/hr Documented By: SANGEETHA Sodium Chloride (Sodium Chloride 0.45 %) 1,000 mls @ 150 mls/hr IVCONT .Q6H40M [facility] Last Admin: 06/02/22 04:40 Dose: 150 mls/hr Documented By: VIDA Insulin Glargine (Insulin Glargine,Hum.Rec.Anlog 100 Unit/Ml 10 Ml Vial) 25 unit SUBCUT BEDTIME [facility] Last Admin: 06/01/22 22:19 Dose: 25 unit Documented By: VIDA Melatonin (Melatonin 3 Mg Tablet) 6 mg PO BEDTIME PRN PRN Reason: Insomnia Metoclopramide HCl (Metoclopramide Hcl 5 Mg Tablet) 5 mg PO TID [facility] Last Admin: 06/01/22 22:18 Dose: 5 mg Documented By: VIDA Montelukast Sodium (Montelukast Sodium 10 Mg Tablet) 10 mg PO BEDTIME [facility] Last Admin: 06/01/22 22:38 Dose: 10 mg Documented By: VIDA Non-Formulary Medication (Hydrocortisone-Pramoxine [Analpram-Hc]) 1 appl MS BID [facility] Ondansetron HCl (Ondansetron Hcl 4 Mg/2 Ml Vial) 4 mg IVPUSH Q8H PRN PRN Reason: Nausea and Vomiting Pharmacy Consult (Consult Rx Perform Med Rec) 1 each MISCELLANE ONCE PRN PRN Reason: Consult order Polyethylene Glycol (Polyethylene Glycol 3350 17 Gm Powd.Pack) 17 gm PO BID PRN PRN Reason: Constipation Psyllium Hydrophilic Mucilloid (Psyllium Seed 3.4 Gm Powd.Pack) 3.4 gm PO DAILY [facility] Sodium Chloride (0.9 % Sodium Chloride Flush 3 Ml Syringe) 3 ml IVFLUSH QSHIFT [facility] Last Admin: 06/01/22 23:46 Dose: Not Given Documented By: VIDA Non-Admin Reason: IV Running Tramadol HCl (Tramadol Hcl 50 Mg Tablet) 50 mg PO Q8H PRN PRN Reason: MODERATE TO SEVERE PAIN Last Admin: 06/02/22 02:22 Dose: 50 mg Documented By: VIDA Labs 06/01/22 14:25 06/02/22 05:24 Labs: Laboratory Results - last 24 hr 06/01/22 06/01/22 06/01/22 14:25 14:25 14:25 MCV 96.9 MCH 30.6 MCHC 31.6 RDW 15.1 Plt Count 139 L MPV 9.5 Immature Gran % (Auto) 0.2 Neut % (Auto) 69.3 Lymph % (Auto) 13.5 L Ellis % (Auto) 7.1 Eos % (Auto) 9.4 H Baso % (Auto) 0.5 Lymph # (Auto) 0.8 L Ellis # (Auto) 0.4 Eos # (Auto) 0.6 H Baso # (Auto) 0.0 Abs Immat Gran (auto) 0.01 Absolute Neuts (auto) 4.3 Absolute Nucleated RBC 0.000 Nucleated RBC % (auto) 0.0 PT INR Anion Gap 20 Estim Creat Clear Calc 10.2 Estimated GFR 10 POC Glucose Random Glucose 79 Lactic Acid Lactic Acid F/U @ 2Hr Lactic Acid F/U @ 4Hr Calcium 10.0 D Magnesium 1.6 Total Bilirubin 0.8 Direct Bilirubin 0.3 AST 29 ALT 15 Alkaline Phosphatase 118 H Troponin I High Sens Total Protein 6.6 Albumin 3.9 Lipase 32 Urine Color Urine Appearance Urine pH Ur Specific [place] Urine Protein Urine Glucose (UA) Urine Ketones Urine Blood Urine Nitrite Ur Leukocyte Esterase C. difficile Tox B Gene COVID-19 ([facility]) Negative COVID-19 Clin Com See Note 06/01/22 06/01/22 06/01/22 14:25 14:25 14:25 MCV MCH MCHC RDW Plt Count MPV Immature Gran % (Auto) Neut % (Auto) Lymph % (Auto) Ellis % (Auto) Eos % (Auto) Baso % (Auto) Lymph # (Auto) Ellis # (Auto) Eos # (Auto) Baso # (Auto) Abs Immat Gran (auto) Absolute Neuts (auto) Absolute Nucleated RBC Nucleated RBC % (auto) PT 12.7 INR 1.1 Anion Gap Estim Creat Clear Calc Estimated GFR POC Glucose Random Glucose Lactic Acid 3.7 H* Lactic Acid F/U @ 2Hr Lactic Acid F/U @ 4Hr Calcium Magnesium Total Bilirubin Direct Bilirubin AST ALT Alkaline Phosphatase Troponin I High Sens 266.1 H* Total Protein Albumin Lipase Urine Color Urine Appearance Urine pH Ur Specific [place] Urine Protein Urine Glucose (UA) Urine Ketones Urine Blood Urine Nitrite Ur Leukocyte Esterase C. difficile Tox B Gene COVID-19 ([facility]) COVID-19 [employer] 06/01/22 06/01/22 06/01/22 16:45 18:04 19:17 MCV MCH MCHC RDW Plt Count MPV Immature Gran % (Auto) Neut % (Auto) Lymph % (Auto) Ellis % (Auto) Eos % (Auto) Baso % (Auto) Lymph # (Auto) Ellis # (Auto) Eos # (Auto) Baso # (Auto) Abs Immat Gran (auto) Absolute Neuts (auto) Absolute Nucleated RBC Nucleated RBC % (auto) PT INR Anion Gap Estim Creat Clear Calc Estimated GFR POC Glucose Random Glucose Lactic Acid Lactic Acid F/U @ 2Hr 3.3 H* Lactic Acid F/U @ 4Hr 7.4 H* Calcium Magnesium Total Bilirubin Direct Bilirubin AST ALT Alkaline Phosphatase Troponin I High Sens Total Protein Albumin Lipase Urine Color Yellow Urine Appearance Clear Urine pH 5.0 Ur Specific [place] 1.010 Urine Protein Negative Urine Glucose (UA) Negative Urine Ketones Negative Urine Blood Negative Urine Nitrite Negative Ur Leukocyte Esterase Negative C. difficile Tox B Gene COVID-19 ([facility]) COVID-19 [employer] 06/01/22 06/01/22 06/02/22 19:26 21:46 02:00 MCV MCH MCHC RDW Plt Count MPV Immature Gran % (Auto) Neut % (Auto) Lymph % (Auto) Ellis % (Auto) Eos % (Auto) Baso % (Auto) Lymph # (Auto) Ellis # (Auto) Eos # (Auto) Baso # (Auto) Abs Immat Gran (auto) Absolute Neuts (auto) Absolute Nucleated RBC Nucleated RBC % (auto) PT INR Anion Gap Estim Creat Clear Calc Estimated GFR POC Glucose 100 93 Random Glucose Lactic Acid Lactic Acid F/U @ 2Hr Lactic Acid F/U @ 4Hr Calcium Magnesium Total Bilirubin Direct Bilirubin AST ALT Alkaline Phosphatase Troponin I High Sens Total Protein Albumin Lipase Urine Color Urine Appearance Urine pH Ur Specific [place] Urine Protein Urine Glucose (UA) Urine Ketones Urine Blood Urine Nitrite Ur Leukocyte Esterase C. difficile Tox B Gene NEGATIVE COVID-19 ([facility]) COVID-19 [employer] 06/02/22 06/02/22 05:24 06:56 MCV MCH MCHC RDW Plt Count MPV Immature Gran % (Auto) Neut % (Auto) Lymph % (Auto) Ellis % (Auto) Eos % (Auto) Baso % (Auto) Lymph # (Auto) Ellis # (Auto) Eos # (Auto) Baso # (Auto) Abs Immat Gran (auto) Absolute Neuts (auto) Absolute Nucleated RBC Nucleated RBC % (auto) PT INR Anion Gap 18 Estim Creat Clear Calc 12.7 Estimated GFR 13 POC Glucose 79 Random Glucose 86 Lactic Acid Lactic Acid F/U @ 2Hr Lactic Acid F/U @ 4Hr Calcium 9.4 Magnesium Total Bilirubin Direct Bilirubin AST ALT Alkaline Phosphatase Troponin I High Sens Total Protein Albumin Lipase Urine Color Urine Appearance Urine pH Ur Specific [place] Urine Protein Urine Glucose (UA) Urine Ketones Urine Blood Urine Nitrite Ur Leukocyte Esterase C. difficile Tox B Gene COVID-19 ([facility]) COVID-19 Clin Com Assessment and Plan (1) Acute kidney injury superimposed on CKD: Status: Acute (2) Acute hyperkalemia: Status: Acute (3) Diarrhea: Status: Acute (4) Elevated lactic acid level: Status: Acute Plan 77/F with CKD, Cirrhosis, HTN, HLD here with TISHA and CKD--likely multifactorial, including dehydration, Lasix, Losartan. Better. IV fluid and repeat tomorrow. Neoprhology consult Hyperkalemia--Hyperkalemia d/trenal failure, K supplement? and Losartan. Stop Losartan and K supplement. K is better today today, 1 dose of Lokelma and repeat tomorrow Diarrhea--not sure what the cause is, check GI panel and C dif, hydrate and stop Colchicine Acute lactic acidosis--d/t renal failure and Metformin which is bein discontinued Dehydration--IVF HTN--stop Losartan, Norvasc if needed HLD--Lipitor weight loss d/t diarrhea Diabetes--Hold Metformin and Victoza, sliding insulin and if BS too high add Lantus Generalized weakness with concern of weakness on right side, pt states that she has been like this for at least 3 months since a last fall and has not been walking, no other sings of stroke.. She was able able to lift both arms up w ithout any difficult, she wigle both toes, she has weakness in both legs and does move both but not able to move either against gravity.. and she relates again that this is not new and ongoing for months and not able to walk for months..I had RN show me what was different from earlier assessment, reportedly she was sleepy in the morning, but she is fully alert oriented and overall feels better.. Time Spent With Patient Time: Total time managing care of this patient today ____ minutes. Time Spent With Patient Time: Total time managing care of this patient today ____ minutes. Quality Stroke Does the patient have a stroke diagnosis?: No VTE Prior VTE?: No VTE Risk Level:: Medical - moderate - high VTE Device Contraindication: Treatment Not Indicated VTE Drug Contraindication: N/A - Med Ordered
[2022-06-02] MEDS: allopurinoL 300 MG TABLET PO (08:56)
[2022-06-02] MEDS: Metoclopramide HCl 5 MG TABLET PO ×3 (08:56→22:34)
[2022-06-02] MEDS: Calcium + Vitamin D 250 MG TABLET 500 MG PO ×2 (08:56→22:34)
[2022-06-02] MEDS: Ferrous Sulfate 324 MG TABLET.DR PO (08:56)
[2022-06-02] MEDS: Escitalopram Oxalate 5 MG TABLET PO (08:57)
--- NOTE | 2022-06-02 09:03 | MHC.CM.PN ---
Patient is unavailable; CM spoke with Daughter/HCP/Jolanta at [phone] and addressed IMM with her (original to be mailed certified letter to Jolanta and a copy has been placed on the chart). 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 is the goal. CM has initiated and will follow for dc planning.
[2022-06-02] MEDS: 0.9 % Sodium Chloride Flush 3 ML SYRINGE IVFLUSH ×2 (09:48→16:34)
[2022-06-02 09:52] LABS: Campylobacter Not Detected (Not Detect.); E. coli EAEC Not Detected (Not Detect.); E. coli EPEC Not Detected (Not Detect.); E. coli ETEC Not Detected (Not Detect.); E. coli STEC Not Detected (Not Detect.); Plesiomonas shigelloides Not Detected (Not Detect.); Salmonella Not Detected (Not Detect.); Vibrio Not Detected (Not Detect.); Vibrio Cholerae Not Detected (Not Detect.); Yersinia enterocolitica Not Detected (Not Detect.)
[2022-06-02 09:53] LABS: Adenovirus F 40/41 Not Detected (Not Detect.); Astrovirus Not Detected (Not Detect.); Cryptosporidium Not Detected (Not Detect.); Cyclospora cayetanensis Not Detected (Not Detect.); Entamoeba histolytica Not Detected (Not Detect.); Giardia lamblia Not Detected (Not Detect.); Norovirus GI/GII Not Detected (Not Detect.); Rotavirus A Not Detected (Not Detect.); Sapovirus Not Detected (Not Detect.); Shigella sp./EIEC Not Detected (Not Detect.)
[2022-06-02 10:57] LABS: Glucose, Whole Blood 81 mg/dL (60-115)
[2022-06-02 11:41] VITALS: BMI 32.7
[2022-06-02] MEDS: Sodium Zirconium Cyclosilicate 10 GM POWD.PACK PO (11:53)
[2022-06-02 12:00] VITALS: BP 117/60; PULSE 82; RESP 18; TEMP 36.6; O2SAT 95
[2022-06-02] MEDS: Gabapentin 400 MG CAPSULE 800 MG PO ×3 (14:10→22:34)
[2022-06-02 15:21] VITALS: BP 111/55; PULSE 71; RESP 14; TEMP 36; O2SAT 97
[2022-06-02 17:01] LABS: Glucose, Whole Blood 119 mg/dL (60-115)
--- NOTE | 2022-06-02 17:53 | PC.NURSE ---
Assumed care of patient at 0700. Received report from night RN that pt had right sided weakness. Pt noted to be drowsy this am, gabapentin held. Pt more alert this afternoon. Alert and oriented x person and place. Able to follow commands. Pt having difficulty moving right arm and unable to move right leg. When asked to wiggle toes, pt did not wiggle right side, flacid. Pt stated that her right side has been bothering her and feels numb and diminished sensation on the whole right side of her body. She was unable to state when this started. After reviewing the patient's history and ED/MD notes, I notifed the MD of her assessment. Dr Gracia came to bedside to eval and stated this is not any new symptoms and no further intervention at this time.
[2022-06-02 18:45] LABS: Osmolality Urine 206 mosm/kg (373-1093)
[2022-06-02 19:19] VITALS: BP 102/52; PULSE 80; RESP 14; TEMP 36.1; O2SAT 96
[2022-06-02 20:09] LABS: Anion Gap 15 (12-20); Blood Urea Nitrogen 51 mg/dL (9-16); Calcium 8.5 mg/dL (8.4-10.2); Carbon Dioxide 22 mmol/L (22-29); Chloride 101 mmol/L (96-108); Creatinine Clr Calc Pharmacy 14.6; Estimated Glomerular Filt Rate 15; Glucose Random 152 mg/dL (60-115); Sodium 133 mmol/L (135-145)
[2022-06-02 20:29] LABS: Glucose, Whole Blood 145 mg/dL (60-115)
--- NOTE | 2022-06-02 22:06 | PM.CNNEP ---
History of Present Illness Reason for Consult Consult date: 06/02/22 Chief Complaint Chief complaint: TISHA, Hyperkalemia History of Present Illness Narrative: 76-year-old female with multiple issues including CKD as well as cirrhosis was brought to GI clinic for evaluation of ongoing diarrhea for x 3 weeks, nausea, vomiting , reduce appetite and 20 Ib weight loss. Labs noted to be abnormal including creatinine of 4.3 which steadily up from March at around 1.8. Her potassium was 6.4. She was admitted for further management. Nephrology has been consulted to assist in her clinical care Review of Systems Review of Systems Yes all other systems are reviewed and are negative [facility] Past Medical History Medical History Chronic alcoholic liver disease Constipation by delayed colonic transit Depression with anxiety Diabetes mellitus Essential hypertension Gout Hair loss Hearing loss HLD (hyperlipidemia) HTN (hypertension) Hypovitaminosis D Lumbar degenerative disc disease Lumbar radiculopathy Moderate asthma Neuropathy Numbness Pure hypercholesterolemia T2DM (type 2 diabetes mellitus) Umbilical hernia Family History Family History Father Renal failure Mother Fatty liver Ovarian cancer Maternal Aunt Ovarian cancer Breast cancer Brother Colon cancer Surgical History Surgical History H/O cervical biopsy History of appendectomy History of colonoscopy History of total abdominal hysterectomy and bilateral salpingo-oophorectomy Social History Social History Household Members: None Housing: Correction Do you presently have visiting nurse or other home services: No Alcohol intake: unknown Patient Tobacco Use Status: Former Tobacco user Tobacco use type: Cigarette Smoked in Last 30 Days: No e-Cigarette/Vaping Use: Never Used Patient Interested in Nicotine Replacement: No Patient Given Instructions on How to Stop Smoking: No Second Hand Smoke Exposure: No Use of substances other than those prescribed or required for medical reasons: No Currently Displaying Signs/Symptoms of Drug Intoxication Withdrawal: No Any prior treatment program specific to substance use: No Have you been hit, kicked, punched, or otherwise hurt by someone within the past year? If so, by whom?: No Do you feel safe in your current relationship?: No Is there a partner from a previous relationship who is making you feel unsafe now?: No Are you made to feel afraid or neglected: No Advance Directives: Yes Advance Directives Information Provided: No Advance Directives on File: Yes Advance Directives Date on File: 12/22/20 Do you have thoughts of harming others: None Do you have a plan to hurt others: No Plan Recently lost weight without trying: Yes How much weight loss: 14-23 pounds Nutrition Risks: No Nutritional Risk Patient : No : No Poor oral hygiene: No service: No Current occupational status: retired Cognitive needs: No Hearing needs: No Vision needs: No Meds Allergies Allergy/AdvReac Type Severity Reaction Status Date / Time No Known Allergies Allergy Verified 06/01/22 12:45 Active Medications: Current Medications Acetaminophen (Acetaminophen 325 Mg Tablet) 650 mg PO Q6H PRN PRN Reason: Fever Or Pain Albuterol Sulfate (Albuterol Sulfate 90 Mcg 8 Gm Inhaler) 2 puff INHALE Q4H PRN PRN Reason: Wheezing Allopurinol (Allopurinol 300 Mg Tablet) 300 mg PO DAILY [facility] Last Admin: 06/02/22 08:56 Dose: 300 mg Atorvastatin Calcium (Atorvastatin Calcium 20 Mg Tablet) 20 mg PO BEDTIME [facility] Last Admin: 06/01/22 22:18 Dose: 20 mg Calcium Carbonate/Cholecalciferol (Calcium + Vitamin D 250 Mg Tablet) 500 mg PO BID [facility] Last Admin: 06/02/22 08:56 Dose: 500 mg Clonazepam (Clonazepam 0.5 Mg Tablet) 0.5 mg PO BEDTIME [facility] Last Admin: 06/01/22 22:18 Dose: 0.5 mg Docusate Sodium (Docusate Sodium 100 Mg Capsule) 100 mg PO BID PRN PRN Reason: Constipation Escitalopram Oxalate (Escitalopram Oxalate 5 Mg Tablet) 5 mg PO DAILY [facility] Last Admin: 06/02/22 08:57 Dose: 5 mg Ferrous Sulfate (Ferrous Sulfate 324 Mg Tablet.Dr) 324 mg PO DAILY [facility] Last Admin: 06/02/22 08:56 Dose: 324 mg Gabapentin (Gabapentin 400 Mg Capsule) 800 mg PO QID [facility] Last Admin: 06/02/22 17:20 Dose: 800 mg Heparin Sodium (Porcine) (Heparin Sodium,Porcine 5,000 Unit/Ml Vial) 5,000 unit SUBCUT Q12H [facility] Last Admin: 06/02/22 17:20 Dose: 5,000 unit Dextrose (D10) 250 mls @ 750 mls/hr IV Q15M PRN PRN Reason: per Hypoglycemia Standing Ord. Last Infusion: 06/01/22 17:08 Dose: Infused Sodium Chloride (Sodium Chloride 0.45 %) 1,000 mls @ 150 mls/hr IVCONT .Q6H40M [facility] Last Admin: 06/02/22 18:42 Dose: 150 mls/hr Insulin Glargine (Insulin Glargine,Hum.Rec.Anlog 100 Unit/Ml 10 Ml Vial) 25 unit SUBCUT BEDTIME [facility] Last Admin: 06/01/22 22:19 Dose: 25 unit Insulin Human Lispro (Insulin Lispro 100 Unit/Ml 3 Ml Vial) 0 unit SUBCUT QIDACHS [facility]; Protocol Last Admin: 06/02/22 17:01 Dose: Not Given Melatonin (Melatonin 3 Mg Tablet) 6 mg PO BEDTIME PRN PRN Reason: Insomnia Metoclopramide HCl (Metoclopramide Hcl 5 Mg Tablet) 5 mg PO TID [facility] Last Admin: 06/02/22 14:10 Dose: 5 mg Montelukast Sodium (Montelukast Sodium 10 Mg Tablet) 10 mg PO BEDTIME [facility] Last Admin: 06/01/22 22:38 Dose: 10 mg Non-Formulary Medication (Hydrocortisone-Pramoxine [Analpram-Hc]) 1 appl NE BID [facility] Ondansetron HCl (Ondansetron Hcl 4 Mg/2 Ml Vial) 4 mg IVPUSH Q8H PRN PRN Reason: Nausea and Vomiting Pharmacy Consult (Consult Rx Perform Med Rec) 1 each MISCELLANE ONCE PRN PRN Reason: Consult order Polyethylene Glycol (Polyethylene Glycol 3350 17 Gm Powd.Pack) 17 gm PO BID PRN PRN Reason: Constipation Psyllium Hydrophilic Mucilloid (Psyllium Seed 3.4 Gm Powd.Pack) 3.4 gm PO DAILY [facility] Last Admin: 06/02/22 09:02 Dose: Not Given Sodium Chloride (0.9 % Sodium Chloride Flush 3 Ml Syringe) 3 ml IVFLUSH QSHIFT [facility] Last Admin: 06/02/22 16:34 Dose: 3 ml Tramadol HCl (Tramadol Hcl 50 Mg Tablet) 50 mg PO Q8H PRN PRN Reason: MODERATE TO SEVERE PAIN Last Admin: 06/02/22 02:22 Dose: 50 mg Home Medications Medication Instructions Recorded Confirmed Last Taken Type albuterol sulfate 90 mcg/actuation 2 puff inhalation Q4H PRN Wheezing 01/31/20 06/01/22 12/19/20 History aerosol inhaler docusate sodium 100 mg capsule 100 mg PO BID PRN Constipation 01/31/20 06/01/22 12/19/20 History insulin aspart U-100 100 unit/mL See Protocol subcut TID 01/31/20 06/01/22 Unknown History (3 mL) subcutaneous pen lancets 33 gauge #100 ea 01/31/20 04/29/22 Unknown History insulin glargine 100 unit/mL (3 25 unit subcut BEDTIME 09/15/20 06/01/22 12/19/20 History mL) subcutaneous pen (Lantus Solostar U-100 Insulin) colchicine 0.6 mg tablet 0.6 mg PO DAILY 11/11/21 06/01/22 Unknown History acetaminophen 325 mg tablet 650 mg PO Q6H PRN Fever Or Pain 06/01/22 06/01/22 Unknown History allopurinol 300 mg tablet 300 mg PO DAILY 06/01/22 06/01/22 Unknown History atorvastatin 20 mg tablet 20 mg PO BEDTIME 06/01/22 06/01/22 Unknown History calcium carbonate 600 mg-vitamin 1 tab PO BID 06/01/22 06/01/22 Unknown History D3 10 mcg (400 unit) tablet (Calcium 600 + D(3)) clonazepam 0.5 mg tablet 0.5 mg PO BEDTIME 06/01/22 06/01/22 Unknown History escitalopram oxalate 5 mg tablet 5 mg PO DAILY 06/01/22 06/01/22 Unknown History (Lexapro) furosemide 40 mg tablet 40 mg PO DAILY 06/01/22 06/01/22 Unknown History gabapentin 800 mg tablet 800 mg PO Q6H 06/01/22 06/01/22 Unknown History hydrocortisone-pramoxine 2.5 %-1 % 1 appl NE BID 06/01/22 06/01/22 Unknown History rectal cream (Analpram-HC) liraglutide 0.6 mg/0.1 mL (18 mg/3 1.8 mg subcut BEDTIME 06/01/22 06/01/22 Unknown History mL) subcutaneous pen injector (Victoza 3-Aric) metoclopramide HCl 5 mg tablet 5 mg PO TID 06/01/22 06/01/22 Unknown History polyethylene glycol 3350 17 gram 17 g PO BID PRN Constipation 06/01/22 06/01/22 Unknown History oral powder packet potassium chloride 20 mEq 20 meq PO DAILY 06/01/22 06/01/22 Unknown History tablet,extended release psyllium husk 3.4 gram/5.4 gram 1 tsp PO DAILY 06/01/22 06/01/22 Unknown History oral powder (Tiffanie-Mucil) tramadol 50 mg tablet 50 mg PO Q8H PRN MODERATE TO 06/01/22 06/01/22 Unknown History SEVERE PAIN Physical Exam Vital Signs: Last Vital Signs Temp 97.0 F 06/02/22 19:19 Pulse 80 06/02/22 19:19 Resp 14 06/02/22 19:19 BP 102/52 L 06/02/22 19:19 Pulse Ox 96 06/02/22 19:19 O2 Del Method Room Air 06/02/22 19:19 O2 Flow Rate 94 06/02/22 07:18 BMI result Body Mass Index 32.7 Const General: no acute distress Orientation/consciousness: patient oriented x3 Eyes EOM: EOMs intact bilaterally Neck Neck: Yes supple Resp Auscultation: diminished lung sounds Cardio Rate: regular rate Peripheral pulses: posterior tibial pulses present GI Palpation (GI): Soft to palpation Neuro General: patient oriented x3 Results Lab Results 06/01/22 14:25 06/02/22 19:22 Lab results: Chemistry 06/01/22 06/02/22 06/02/22 14:25 05:24 19:22 Sodium 138 136 133 L Potassium 6.4 H* 5.3 H 5.0 Carbon Dioxide 24 21 L 22 BUN 68 H 57 H 51 H Creatinine 4.30 H* 3.46 H 3.00 H Calcium 10.0 D 9.4 8.5 D Hematology 06/01/22 14:25 WBC 6.2 Hgb 12.9 Plt Count 139 L Urinalysis 06/01/22 18:04 Urine Color Yellow Urine Appearance Clear Urine pH 5.0 Ur Specific [place] 1.010 Urine Protein Negative Urine Glucose (UA) Negative Urine Ketones Negative Urine Blood Negative Urine Nitrite Negative Ur Leukocyte Esterase Negative Urine Studies 06/02/22 18:00 Urine Osmolality 206 L Assessment and Plan (1) Acute kidney injury superimposed on CKD: Status: Acute Plan TISHA due to tubular injury Had altered auto regulation being on ARB' Was on K supplements- D/Brandon ARB D/Brandon. On fluids Urine output good No indication for HD C/W rest of current supp mgt Procedures Date of Service Date of Service: 06/02/22
[2022-06-02] MEDS: Atorvastatin Calcium 20 MG TABLET PO (22:33)
[2022-06-02] MEDS: Insulin Glargine,Hum.rec.anlog 100 UNIT/ML 10 ML VIAL 25 UNIT SUBCUT (22:33)
[2022-06-02] MEDS: clonazePAM 0.5 MG TABLET PO (22:34)
[2022-06-02] MEDS: Montelukast Sodium 10 MG TABLET PO (22:34)
[2022-06-03] VITALS: BP 109/50; PULSE 72; RESP 16; TEMP 36.3; O2SAT 96
[2022-06-03] MEDS: Sodium Chloride 0.45 % 1,000 ML 150 ML IVCONT ×2 (02:33→09:18)
[2022-06-03 03:37] VITALS: BP 94/44; PULSE 74; RESP 16; TEMP 36.4; O2SAT 94
[2022-06-03] MEDS: Heparin Sodium,Porcine 5,000 UNIT/ML VIAL 5000 UNIT SUBCUT ×2 (05:46→17:14)
[2022-06-03 07:02] VITALS: BP 117/56; PULSE 76; RESP 18; TEMP 36.8; O2SAT 96
[2022-06-03 07:03] LABS: Glucose, Whole Blood 80 mg/dL (60-115)
--- NOTE | 2022-06-03 07:30 | PC.NURSE ---
@ 4am vitals pts BP was 94/44. MD notified no new orders received. Will continue to monitor respirations steady.
[2022-06-03] MEDS: Calcium + Vitamin D 250 MG TABLET 500 MG PO ×2 (08:09→21:47)
[2022-06-03] MEDS: allopurinoL 300 MG TABLET PO (08:09)
[2022-06-03] MEDS: Metoclopramide HCl 5 MG TABLET PO ×3 (08:09→21:48)
[2022-06-03] MEDS: Gabapentin 400 MG CAPSULE 800 MG PO ×4 (08:09→21:47)
[2022-06-03] MEDS: Ferrous Sulfate 324 MG TABLET.DR PO (08:09)
[2022-06-03] MEDS: 0.9 % Sodium Chloride Flush 3 ML SYRINGE IVFLUSH ×3 (08:10→21:48)
[2022-06-03] MEDS: Escitalopram Oxalate 5 MG TABLET PO (08:14)
[2022-06-03] MEDS: traMADoL HCL 50 MG TABLET PO ×2 (09:17→23:52)
[2022-06-03] MEDS: Docusate Sodium 100 MG CAPSULE PO (09:17)
[2022-06-03] MEDS: Acetaminophen 325 MG TABLET 650 MG PO (09:17)
[2022-06-03 11:40] LABS: Glucose, Whole Blood 140 mg/dL (60-115)
[2022-06-03 11:47] VITALS: BP 103/51; PULSE 78; RESP 18; TEMP 36.7; O2SAT 94
[2022-06-03 12:47] LABS: Anion Gap 12 (12-20); Blood Urea Nitrogen 45 mg/dL (9-16); Calcium 8.3 mg/dL (8.4-10.2); Carbon Dioxide 22 mmol/L (22-29); Chloride 105 mmol/L (96-108); Creatinine Clr Calc Pharmacy 19.1; Estimated Glomerular Filt Rate 21; Glucose Random 157 mg/dL (60-115); Potassium 4.3 mmol/L (3.3-5.1); Sodium 135 mmol/L (135-145)
--- NOTE | 2022-06-03 14:19 | P.PNIM_ITS ---
Subjective Subjective Date of Service: 06/03/22 Interval History: f/u on tisha, hyperkalemia, diarrhea interval histrory: no new issues, overall better Physical Exam Vital Signs: Vital Signs: Last Vital Signs Temp 98.1 F 06/03/22 11:47 Pulse 78 06/03/22 11:47 Resp 18 06/03/22 11:47 BP 103/51 L 06/03/22 11:47 Pulse Ox 94 06/03/22 11:47 O2 Del Method Room Air 06/03/22 11:47 O2 Flow Rate 94 06/02/22 07:18 BMI result Body Mass Index 32.7 Const: Other: General: AO X 3, no acute distress Resp: CTA bilateral CVS: S1,S2,RRR GI: +BS, NT, no distention Skin: No rash Neuro: motor grossly intact, but generally weak- Psych: appropriate affect Objective Data Active Medications Acetaminophen (Acetaminophen 325 Mg Tablet) 650 mg PO Q6H PRN PRN Reason: Fever Or Pain Last Admin: 06/03/22 09:17 Dose: 650 mg Documented By: JOSE M Albuterol Sulfate (Albuterol Sulfate 90 Mcg 8 Gm Inhaler) 2 puff INHALE Q4H PRN PRN Reason: Wheezing Allopurinol (Allopurinol 100 Mg Tablet) 50 mg PO MoTh@0900 [facility] Atorvastatin Calcium (Atorvastatin Calcium 20 Mg Tablet) 20 mg PO BEDTIME [facility] Last Admin: 06/02/22 22:33 Dose: 20 mg Documented By: ISA Calcium Carbonate/Cholecalciferol (Calcium + Vitamin D 250 Mg Tablet) 500 mg PO BID [facility] Last Admin: 06/03/22 08:09 Dose: 500 mg Documented By: JOSE M Clonazepam (Clonazepam 0.5 Mg Tablet) 0.5 mg PO BEDTIME [facility] Last Admin: 06/02/22 22:34 Dose: 0.5 mg Documented By: ISA Docusate Sodium (Docusate Sodium 100 Mg Capsule) 100 mg PO BID PRN PRN Reason: Constipation Last Admin: 06/03/22 09:17 Dose: 100 mg Documented By: JOSE M Escitalopram Oxalate (Escitalopram Oxalate 5 Mg Tablet) 5 mg PO DAILY [facility] Last Admin: 06/03/22 08:14 Dose: 5 mg Documented By: JOSE M Ferrous Sulfate (Ferrous Sulfate 324 Mg Tablet.) 324 mg PO DAILY [facility] Last Admin: 06/03/22 08:09 Dose: 324 mg Documented By: JOSE M Gabapentin (Gabapentin 400 Mg Capsule) 800 mg PO QID [facility] Last Admin: 06/03/22 13:04 Dose: 800 mg Documented By: JOSE M Heparin Sodium (Porcine) (Heparin Sodium,Porcine 5,000 Unit/Ml Vial) 5,000 unit SUBCUT Q12H [facility] Last Admin: 06/03/22 05:46 Dose: 5,000 unit Documented By: ISA Dextrose (D10) 250 mls @ 750 mls/hr IV Q15M PRN PRN Reason: per Hypoglycemia Standing Ord. Last Infusion: 06/01/22 17:08 Dose: 0 mls/hr Documented By: SANGEETHA Sodium Chloride (Sodium Chloride 0.45 %) 1,000 mls @ 150 mls/hr IVCONT .Q6H40M [facility] Last Admin: 06/03/22 09:18 Dose: 150 mls/hr Documented By: JOSE M Insulin Glargine (Insulin Glargine,Hum.Rec.Anlog 100 Unit/Ml 10 Ml Vial) 25 unit SUBCUT BEDTIME [facility] Last Admin: 06/02/22 22:33 Dose: 25 unit Documented By: ISA Insulin Human Lispro (Insulin Lispro 100 Unit/Ml 3 Ml Vial) 0 unit SUBCUT QIDACHS [facility]; Protocol Last Admin: 06/03/22 11:44 Dose: Not Given Documented By: ADDISON Non-Admin Reason: No Insulin Coverage Melatonin (Melatonin 3 Mg Tablet) 6 mg PO BEDTIME PRN PRN Reason: Insomnia Metoclopramide HCl (Metoclopramide Hcl 5 Mg Tablet) 5 mg PO TID [facility] Last Admin: 06/03/22 08:09 Dose: 5 mg Documented By: JOSE M Montelukast Sodium (Montelukast Sodium 10 Mg Tablet) 10 mg PO BEDTIME [facility] Last Admin: 06/02/22 22:34 Dose: 10 mg Documented By: ISA Ondansetron HCl (Ondansetron Hcl 4 Mg/2 Ml Vial) 4 mg IVPUSH Q8H PRN PRN Reason: Nausea and Vomiting Pharmacy Consult (Consult Rx Perform Med Rec) 1 each MISCELLANE ONCE PRN PRN Reason: Consult order Polyethylene Glycol (Polyethylene Glycol 3350 17 Gm Powd.Pack) 17 gm PO BID PRN PRN Reason: Constipation Psyllium Hydrophilic Mucilloid (Psyllium Seed 3.4 Gm Powd.Pack) 3.4 gm PO DAILY [facility] Last Admin: 06/03/22 08:09 Dose: 3.4 gm Documented By: JOSE M Sodium Chloride (0.9 % Sodium Chloride Flush 3 Ml Syringe) 3 ml IVFLUSH QSHIFT [facility] Last Admin: 06/03/22 08:10 Dose: 3 ml Documented By: JOSE M Tramadol HCl (Tramadol Hcl 50 Mg Tablet) 50 mg PO Q8H PRN PRN Reason: MODERATE TO SEVERE PAIN Last Admin: 06/03/22 09:17 Dose: 50 mg Documented By: JOSE M Labs 06/01/22 14:25 06/03/22 12:19 Labs: Laboratory Results - last 24 hr 06/02/22 06/02/22 06/02/22 16:56 18:00 18:00 Anion Gap Estim Creat Clear Calc Estimated GFR POC Glucose 119 H Random Glucose Calcium Urine Osmolality 206 L Ur Random Sodium 21.0 06/02/22 06/02/22 06/03/22 19:22 20:24 06:45 Anion Gap 15 Estim Creat Clear Calc 14.6 Estimated GFR 15 POC Glucose 145 H 80 Random Glucose 152 H Calcium 8.5 D Urine Osmolality Ur Random Sodium 06/03/22 06/03/22 11:04 12:19 Anion Gap 12 Estim Creat Clear Calc 19.1 Estimated GFR 21 POC Glucose 140 H Random Glucose 157 H Calcium 8.3 L Urine Osmolality Ur Random Sodium Microbiology Microbiology Results: Microbiology 06/01/22 16:03 Blood Culture - Preliminary Blood - Venous No growth after 24 hours. 06/01/22 16:03 Blood Culture - Preliminary Blood - Venous No growth after 24 hours. Assessment and Plan (1) Acute kidney injury superimposed on CKD: Status: Acute Plan 77/F with CKD, Cirrhosis, HTN, HLD here with TISHA and CKD--likely multifactorial, including dehydration, Lasix, Losartan. Better. IV fluid and repeat tomorrow, overall much better, . Neoprhology con sult Hyperkalemia--Hyperkalemia d/trenal failure, K supplement? and Losartan. Stopped Losartan and K supplement. K is normal Diarrhea--not sure what the cause is, check GI panel and C dif, hydrate and stop Colchicine Acute lactic acidosis--d/t renal failure and Metformin which is bein discontinu ed Dehydration--IVF, stop HTN--stop Losartan, Norvasc if needed HLD--Lipitor weight loss d/t diarrhea Diabetes--Hold Metformin and Victoza, sliding insulin and if BS too high add Lantus Gen weakness, CT head negative, PT eval before discharge, Time Spent With Patient Time: Total time managing care of this patient today ____ minutes. Time Spent With Patient Time: Total time managing care of this patient today ____ minutes. Quality Stroke Does the patient have a stroke diagnosis?: No VTE Prior VTE?: No VTE Risk Level:: Medical - moderate - high VTE Device Contraindication: Treatment Not Indicated VTE Drug Contraindication: N/A - Med Ordered
--- NOTE | 2022-06-03 14:54 | PM.PNNEP ---
Subjective Subjective Date of Service: 06/03/22 Interval history: no new issues, overall better; D/W Med Attending Physical Exam Vital Signs: Vital Signs: Last Vital Signs Temp 98.1 F 06/03/22 11:47 Pulse 78 06/03/22 11:47 Resp 18 06/03/22 11:47 BP 103/51 L 06/03/22 11:47 Pulse Ox 94 06/03/22 11:47 O2 Del Method Room Air 06/03/22 11:47 O2 Flow Rate 94 06/02/22 07:18 BMI result Body Mass Index 32.7 Const: General: no acute distress Orientation/consciousness: patient oriented x3 Eyes: EOM: EOMs intact bilaterally Neck: Neck: Yes supple Resp: Auscultation: diminished lung sounds Cardio: Rate: regular rate GI: Palpation (GI): Soft to palpation Neuro: General: patient oriented x3 Objective Data Labs 06/01/22 14:25 06/03/22 12:19 Labs: Laboratory Results - last 24 hr 06/02/22 06/02/22 06/02/22 16:56 18:00 18:00 Sodium Potassium Chloride Carbon Dioxide Anion Gap BUN Creatinine Estim Creat Clear Calc Estimated GFR POC Glucose 119 H Random Glucose Calcium Urine Osmolality 206 L Ur Random Sodium 21.0 06/02/22 06/02/22 06/03/22 19:22 20:24 06:45 Sodium 133 L Potassium 5.0 Chloride 101 Carbon Dioxide 22 Anion Gap 15 BUN 51 H Creatinine 3.00 H Estim Creat Clear Calc 14.6 Estimated GFR 15 POC Glucose 145 H 80 Random Glucose 152 H Calcium 8.5 D Urine Osmolality Ur Random Sodium 06/03/22 06/03/22 11:04 12:19 Sodium 135 Potassium 4.3 Chloride 105 Carbon Dioxide 22 Anion Gap 12 BUN 45 H Creatinine 2.30 H Estim Creat Clear Calc 19.1 Estimated GFR 21 POC Glucose 140 H Random Glucose 157 H Calcium 8.3 L Urine Osmolality Ur Random Sodium Microbiology Microbiology Results: Microbiology 06/01/22 16:03 Blood - Venous Blood Culture - Preliminary No growth after 24 hours. 06/01/22 16:03 Blood - Venous Blood Culture - Preliminary No growth after 24 hours. Procedures Date of Service Date of Service: 06/03/22 Assessment & Plan Assessment and plan (1) Acute kidney injury superimposed on CKD: Status: Acute Assessment and Plan: TISHA due to tubular injury Had altered auto regulation being on ARB' Was on K supplements- D/Brandon ARB D/Brandon. Was on fluids- renal fn better Urine output good; No indication for HD C/W rest of current supp mgt Progress Note: Quality Stroke Does the patient have a stroke diagnosis?: No
[2022-06-03 15:52] VITALS: BP 110/56; PULSE 76; RESP 16; TEMP 36.2; O2SAT 93
[2022-06-03 16:30] LABS: Glucose, Whole Blood 201 mg/dL (60-115)
[2022-06-03] MEDS: Insulin Lispro 100 UNIT/ML 3 ML VIAL SUBCUT ×2 (16:40→21:48)
[2022-06-03 19:19] VITALS: BP 107/55; PULSE 85; RESP 16; TEMP 36.4; O2SAT 97
[2022-06-03 20:46] LABS: Glucose, Whole Blood 217 mg/dL (60-115)
[2022-06-03] MEDS: clonazePAM 0.5 MG TABLET PO (21:47)
[2022-06-03] MEDS: Atorvastatin Calcium 20 MG TABLET PO (21:47)
[2022-06-03] MEDS: Montelukast Sodium 10 MG TABLET PO (21:47)
[2022-06-03] MEDS: Insulin Glargine,Hum.rec.anlog 100 UNIT/ML 10 ML VIAL 25 UNIT SUBCUT (21:48)
[2022-06-03] MEDS: Melatonin 3 MG TABLET 6 MG PO (23:52)
[2022-06-04] VITALS: BP 106/52; PULSE 78; RESP 20; TEMP 36.6; O2SAT 95
[2022-06-04 03:41] VITALS: BP 100/50; PULSE 90; RESP 20; TEMP 36.6; O2SAT 94
[2022-06-04] MEDS: Heparin Sodium,Porcine 5,000 UNIT/ML VIAL 5000 UNIT SUBCUT (06:03)
[2022-06-04 07:18] VITALS: BP 111/59; PULSE 85; RESP 20; TEMP 36.4; O2SAT 95
[2022-06-04 07:39] LABS: Glucose, Whole Blood 145 mg/dL (60-115)
[2022-06-04 08:48] LABS: Anion Gap 12 (12-20); Blood Urea Nitrogen 41 mg/dL (9-16); Calcium 8.7 mg/dL (8.4-10.2); Carbon Dioxide 21 mmol/L (22-29); Chloride 108 mmol/L (96-108); Creatinine Clr Calc Pharmacy 19.6; Estimated Glomerular Filt Rate 21; Glucose Random 131 mg/dL (60-115); Potassium 4.6 mmol/L (3.3-5.1); Sodium 136 mmol/L (135-145)
[2022-06-04] MEDS: Gabapentin 400 MG CAPSULE 800 MG PO ×2 (09:35→12:38)
[2022-06-04] MEDS: Metoclopramide HCl 5 MG TABLET PO (09:35)
[2022-06-04] MEDS: Calcium + Vitamin D 250 MG TABLET 500 MG PO (09:35)
[2022-06-04] MEDS: Escitalopram Oxalate 5 MG TABLET PO (09:36)
--- NOTE | 2022-06-04 10:22 | MHC.CLN ---
F/U PT TRIGGERS FOR 12% SIGNIFICANT WT LOSS X 6MONTHS WITH REPORTED N/V/D X 3 WEEKS PT REMAINS OBESE FOR HT DIET RX: 1800DM, 2GM NA-APPROPRIATE NOTED PRESSURE INJURY HEALED ON COCCYX MONITOR PO INTAKE CLOSELY
--- NOTE | 2022-06-04 10:25 | HO.PM.IMPN ---
Subjective Subjective Date of Service: 06/04/22 Interval History: f/u on tisha, hyperkalemia, diarrhea interval histrory: no new issues, overall better, Creatine continues to trend in right direction Physical Exam Vital Signs: Vital Signs: Last Vital Signs Temp 97.6 F 06/04/22 07:18 Pulse 85 06/04/22 07:18 Resp 20 06/04/22 07:18 BP 111/59 L 06/04/22 07:18 Pulse Ox 95 06/04/22 07:18 O2 Del Method Room Air 06/04/22 07:18 O2 Flow Rate 94 06/02/22 07:18 BMI result Body Mass Index 32.7 Const: Other: General: AO X 3, no acute distress Resp: CTA bilateral CVS: S1,S2,RRR GI: +BS, NT, no distention Skin: No rash Neuro: motor grossly intact, but generally weak- Psych: appropriate affect Objective Data Active Medications Acetaminophen (Acetaminophen 325 Mg Tablet) 650 mg PO Q6H PRN PRN Reason: Fever Or Pain Last Admin: 06/03/22 09:17 Dose: 650 mg Documented By: JOSE M Albuterol Sulfate (Albuterol Sulfate 90 Mcg 8 Gm Inhaler) 2 puff INHALE Q4H PRN PRN Reason: Wheezing Allopurinol (Allopurinol 100 Mg Tablet) 50 mg PO MoTh@0900 [facility] Atorvastatin Calcium (Atorvastatin Calcium 20 Mg Tablet) 20 mg PO BEDTIME [facility] Last Admin: 06/03/22 21:47 Dose: 20 mg Documented By: CHAU Calcium Carbonate/Cholecalciferol (Calcium + Vitamin D 250 Mg Tablet) 500 mg PO BID [facility] Last Admin: 06/04/22 09:35 Dose: 500 mg Documented By: ADDISON Clonazepam (Clonazepam 0.5 Mg Tablet) 0.5 mg PO BEDTIME [facility] Last Admin: 06/03/22 21:47 Dose: 0.5 mg Documented By: CHAU Docusate Sodium (Docusate Sodium 100 Mg Capsule) 100 mg PO BID PRN PRN Reason: Constipation Last Admin: 06/03/22 09:17 Dose: 100 mg Documented By: JOSE M Escitalopram Oxalate (Escitalopram Oxalate 5 Mg Tablet) 5 mg PO DAILY [facility] Last Admin: 06/04/22 09:36 Dose: 5 mg Documented By: ADDISON Ferrous Sulfate (Ferrous Sulfate 324 Mg Tablet.) 324 mg PO DAILY [facility] Last Admin: 06/04/22 09:36 Dose: Not Given Documented By: ADDISON Non-Admin Reason: Patient Refused Gabapentin (Gabapentin 400 Mg Capsule) 800 mg PO QID [facility] Last Admin: 06/04/22 09:35 Dose: 800 mg Documented By: ADDISON Heparin Sodium (Porcine) (Heparin Sodium,Porcine 5,000 Unit/Ml Vial) 5,000 unit SUBCUT Q12H [facility] Last Admin: 06/04/22 06:03 Dose: 5,000 unit Documented By: CHAU Insulin Glargine (Insulin Glargine,Hum.Rec.Anlog 100 Unit/Ml 10 Ml Vial) 25 unit SUBCUT BEDTIME [facility] Last Admin: 06/03/22 21:48 Dose: 25 unit Documented By: CHAU Insulin Human Lispro (Insulin Lispro 100 Unit/Ml 3 Ml Vial) 0 unit SUBCUT QIDACHS [facility]; Protocol Last Admin: 06/04/22 08:06 Dose: Not Given Documented By: ADDISON Non-Admin Reason: No Insulin Coverage Melatonin (Melatonin 3 Mg Tablet) 6 mg PO BEDTIME PRN PRN Reason: Insomnia Last Admin: 06/03/22 23:52 Dose: 6 mg Documented By: CHAU Metoclopramide HCl (Metoclopramide Hcl 5 Mg Tablet) 5 mg PO TID [facility] Last Admin: 06/04/22 09:35 Dose: 5 mg Documented By: ADDISON Montelukast Sodium (Montelukast Sodium 10 Mg Tablet) 10 mg PO BEDTIME [facility] Last Admin: 06/03/22 21:47 Dose: 10 mg Documented By: CHAU Ondansetron HCl (Ondansetron Hcl 4 Mg/2 Ml Vial) 4 mg IVPUSH Q8H PRN PRN Reason: Nausea and Vomiting Pharmacy Consult (Consult Rx Perform Med Rec) 1 each MISCELLANE ONCE PRN PRN Reason: Consult order Polyethylene Glycol (Polyethylene Glycol 3350 17 Gm Powd.Pack) 17 gm PO BID PRN PRN Reason: Constipation Psyllium Hydrophilic Mucilloid (Psyllium Seed 3.4 Gm Powd.Pack) 3.4 gm PO DAILY [facility] Last Admin: 06/04/22 09:36 Dose: 3.4 gm Documented By: ADDISON Sodium Chloride (0.9 % Sodium Chloride Flush 3 Ml Syringe) [facility] Last Admin: 06/04/22 09:46 Dose: Not Given Documented By: ADDISON Non-Admin Reason: Previously Administered Tramadol HCl (Tramadol Hcl 50 Mg Tablet) 50 mg PO Q8H PRN PRN Reason: MODERATE TO SEVERE PAIN Last Admin: 06/03/22 23:52 Dose: 50 mg Documented By: CHAU Labs 06/01/22 14:25 06/04/22 07:52 Labs: Laboratory Results - last 24 hr 06/03/22 06/03/22 06/03/22 11:04 12:19 16:26 Anion Gap 12 Estim Creat Clear Calc 19.1 Estimated GFR 21 POC Glucose 140 H 201 H Random Glucose 157 H Calcium 8.3 L 06/03/22 06/04/22 06/04/22 20:35 07:17 07:52 Anion Gap 12 Estim Creat Clear Calc 19.6 Estimated GFR 21 POC Glucose 217 H 145 H Random Glucose 131 H Calcium 8.7 Microbiology Microbiology Results: Microbiology 06/01/22 16:03 Blood Culture - Preliminary Blood - Venous No growth after 48 hours. 06/01/22 16:03 Blood Culture - Preliminary Blood - Venous No growth after 48 hours. Assessment and Plan (1) Acute kidney injury superimposed on CKD: Status: Acute Plan 77/F with CKD, Cirrhosis, HTN, HLD here with TISHA and CKD--likely multifactorial, including dehydration, Lasix, Losartan. Better. Stopped IV fluid HypERkalemia--Hyperkalemia d/trenal failure, K supplement? and Losartan. Stopped Losartan and K supplement. K is normal Diarrhea--not sure what the cause is, check GI panel and C dif, hydrate and stop Colchicine Acute lactic acidosis--d/t renal failure and Metformin which is bein discontinued Dehydration--IVF, stop HTN--stop Losartan, Norvasc if needed HLD--Lipitor weight loss d/t diarrhea Diabetes--Hold Metformin and Victoza, sliding insulin and if BS too high add Lantus Gen weakness, CT head negative, PT eval before discharge, Gout--renally adjusted allopurinol Will discuss with renal and probably discharge Time Spent With Patient Time: Total time managing care of this patient today ____ minutes. Time Spent With Patient Time: Total time managing care of this patient today ____ minutes. Quality Stroke Does the patient have a stroke diagnosis?: No VTE Prior VTE?: No VTE Risk Level:: Medical - moderate - high VTE Device Contraindication: Treatment Not Indicated VTE Drug Contraindication: N/A - Med Ordered
[2022-06-04 10:44] VITALS: BP 111/59; PULSE 85; O2SAT 95
[2022-06-04 11:15] LABS: Glucose, Whole Blood 181 mg/dL (60-115)
[2022-06-04 11:30] VITALS: BP 100/57; PULSE 82; RESP 16; TEMP 36.3
--- NOTE | 2022-06-04 11:57 | PM.DS ---
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 She reside at [facility] and was brought to GI clinic for evaluation of ongoing diarrhea for x 3 weeks, nausea, vomitting , reduce apetite and generally unwell, and 20 Ib weight loss. Labs noted to be abnormal including creatinine of 4.3 which steadily up from march at around 1.8, additionally potassium is 6.4. She reportedly have been geting weekly IVF hydration at [facility] under the supervision of Nephrology but no improvement in renal function. As result of poor mobility, she has develloped pressure. Hospital course: She presented to the GI office with complaint of diarrhea, leathargy malaise and was fund to hve TISHA on CKD and hyperkalemia and therefore was admitted. Diarrhea, she dind't really have diarrhea in the hospital, C dif and GI panel have been negative. It is possible Colchicine may have cause or contributed to this. This has been on hold TISHA and CKD--likely multifactorial, including dehydration, Lasix, Losartan and diarrhea. Creatinine was 4.30 on 06/01 when admitted and was put on IVF and cratine has since come down to 2.24 today. Her cratinine has been 2.5 to 3.9 in April and around 1.6 in march. Losartan has been stopped, Lasix is on hold. She will follow up with Nephrology for further evaluation. She sees Dr. Morris who will follow in 1 to 2 weeks with repeat labs, until then to hold the mentioned meds. HypERkalemia--Hyperkalemia d/trenal failure, K supplement? and Losartan. we stopped Losartan and K supplement. K is normal Acute lactic acidosis--d/t renal failure and Metformin which is bein discontinued Dehydration--IVF and now stopped, encourage to drink enough water HTN--stop Losartan. Blood pressure has been on the low side so no other meds have been added as of yet HLD--Lipitor weight loss d/t diarrhea Diabetes--Stopped Metformin due to lactic acidosis, continue Victoza and Lantus, sliding scale Gen weakness, CT head negative, she has been unambulatory for more than 3 months since a last fall, PT is recommending PT at [facility] Gout--renally adjusted allopurinol from 300 mg daily to 50 mg twice a week on Tue and Time Spent with Patient Time attestation: Total time managing care of this patient today ____ minutes. Discharge coordination time: Greater than 30 minutes Quality: Safe Use of Opioids Does Pt have an Active Cancer Diagnosis on the Problem List?: No Quality: Stroke Does the patient have a stroke diagnosis?: No Physical Exam Vital Signs: Vital Signs: Last Vital Signs Temp 97.3 F 06/04/22 11:30 Pulse 82 06/04/22 11:30 Resp 16 06/04/22 11:30 BP 100/57 L 06/04/22 11:30 Pulse Ox 95 06/04/22 10:44 O2 Del Method Room Air 06/04/22 07:18 O2 Flow Rate 94 06/02/22 07:18 BMI result Body Mass Index 32.7 DS: Data Data Completed and Pending Labs on day of discharge: Laboratory Results - last 24 hr 06/03/22 06/03/22 06/03/22 12:19 16:26 20:35 Sodium 135 Potassium 4.3 Chloride 105 Carbon Dioxide 22 Anion Gap 12 BUN 45 H Creatinine 2.30 H Estim Creat Clear Calc 19.1 Estimated GFR 21 POC Glucose 201 H 217 H Random Glucose 157 H Calcium 8.3 L 06/04/22 06/04/22 06/04/22 07:17 07:52 11:10 Sodium 136 Potassium 4.6 Chloride 108 Carbon Dioxide 21 L Anion Gap 12 BUN 41 H Creatinine 2.24 H Estim Creat Clear Calc 19.6 Estimated GFR 21 POC Glucose 145 H 181 H Random Glucose 131 H Calcium 8.7 Preliminary micro results at discharge 06/01/22 16:03 Blood Culture - Preliminary Blood - Venous No growth after 48 hours. 06/01/22 16:03 Blood Culture - Preliminary Blood - Venous No growth after 48 hours. Discharge Plan Discharge Anticipated Discharge Date/Time: 06/04/22 12:05 Patient Disposition: Xfer SNF Discharge Diagnosis: TISHA, hyperkalemia, chronic weakness Referrals: Darin Trivedi [Outside] - 1 Week Rossi Montiel MD [Primary Care Provider] - 1 Week Discharge Medications: New allopurinol 100 mg Tablet 50 mg PO MoTh@0900 Qty: 10 0RF Continued (DME) lancets [FreeStyle Lancets] 28 gauge misc See Rx Instructions .ROUTE .MEDSUPPLY Qty: 100 11RF Hold Instructions: patient's request Rx Instructions: As directed ferrous sulfate 325 mg (65 mg iron) tablet,delayed release (DR/EC) 325 mg PO DAILY 90 Days Qty: 90 1RF (DME) pen needle, diabetic 32 gauge x 5/32 needle See Rx Instructions .ROUTE TID Qty: 50 11RF Rx Instructions: As directed montelukast 10 mg tablet 10 mg PO BEDTIME 90 Days Qty: 90 1RF (DME) grab bars See Rx Instructions .Route .MEDSUPPLY Qty: 3 0RF Rx Instructions: As directed (DME) blood-glucose meter [FreeStyle Olga Lite] Kit See Rx Instructions .ROUTE .MEDSUPPLY Qty: 1 0RF Rx Instructions: 3 x/day metoclopramide HCl 5 mg Tablet 5 mg PO TID hydrocortisone-pramoxine [Analpram-HC] 2.5-1 % Cream [address] BID escitalopram oxalate [Lexapro] 5 mg Tablet 5 mg PO DAILY Tiffanie-Mucil 3.4 gram/5.4 gram Powder 1 tsp PO DAILY Rx Instructions: mix into at least 4 oz water or juice before administering tramadol 50 mg tablet 50 mg PO Q8H PRN (Reason: MODERATE TO SEVERE PAIN) acetaminophen 325 mg Tablet 650 mg PO Q6H PRN (Reason: Fever Or Pain) polyethylene glycol 3350 17 gram Powder In Packet 17 g PO BID PRN (Reason: Constipation) clonazepam 0.5 mg tablet 0.5 mg PO BEDTIME gabapentin 800 mg Tablet 800 mg PO Q6H atorvastatin 20 mg tablet 20 mg PO BEDTIME calcium carbonate-vitamin D3 [Calcium 600 + D(3)] 600 mg-10 mcg (400 unit) Tablet 1 tab PO BID Victoza 3-Aric 0.6 mg/0.1 mL (18 mg/3 mL) pen injector 1.8 mg subcut BEDTIME docusate sodium 100 mg capsule 100 mg PO BID PRN (Reason: Constipation) (DME) lancets 33 gauge misc See Rx Instructions .ROUTE .MEDSUPPLY Qty: 100 Hold Instructions: patient's request Rx Instructions: As directed insulin aspart U-100 100 unit/mL (3 mL) insulin pen See Protocol subcut TID Protocol: Insulin Correction Scale Less than or equal to 110 ---- Give (units): 0 111 to 150 Give (units): 0 151 to 200 Give (units): 0 201 to 250 Give (units): 3 251 to 300 Give (units): 4 301 to 350 Give (units): 6 Greater than 350 Give (units): 9 Call MD if Blood Glucose > : 350 albuterol sulfate 90 mcg/actuation HFA aerosol inhaler 2 puff inhalation Q4H PRN (Reason: Wheezing) [place] Solostar U-100 Insulin 100 unit/mL (3 mL) insulin pen 25 unit subcut BEDTIME Changed colchicine 0.6 mg tablet 0.6 mg PO Q2D Qty: 10 0RF Rx Instructions: hold if there is diarrhea Held furosemide 40 mg Tablet 40 mg PO DAILY Hold Instructions: Resume on 06/11/22. Discontinued metformin 1,000 mg tablet 1,000 mg PO BID 90 Days Qty: 180 3RF losartan 50 mg tablet 50 mg PO DAILY 90 Days Qty: 90 3RF potassium chloride 20 mEq Tablet Extended Release 20 meq PO DAILY allopurinol 300 mg Tablet 300 mg PO DAILY Discharge Orders: Discharge Order (Routine); Ordered 06/04/22 Ordered By: Jeison Gracia Diet: Advance to usual diet Activity on Discharge: As tolerated Stand Alone Forms: Patient Portal Discharge page Care Plan Goals: full recovery Health Concerns: Chronic kidney failure, acute kidney failure, chronic weakness Plan of Treatment: Stop losartan, hold Lasix until you see Dr. Morris stop Potassium supplement allupurinol dose has been adjusted to 50 mg twice a daily get BMP level next week Stop Metformin due to lactic acidosis Assessment: As above Discharge Date/Time: 06/04/22 16:21
[2022-06-04] MEDS: Insulin Lispro 100 UNIT/ML 3 ML VIAL SUBCUT (12:38)
[2022-06-04] MEDS: traMADoL HCL 50 MG TABLET PO (12:58)
[2022-06-04 15:48] VITALS: BP 112/59; PULSE 78; RESP 18; TEMP 36.1; O2SAT 97
--- NOTE | 2022-06-04 16:00 | PM.PNNEP ---
Subjective Subjective Date of Service: 06/04/22 Interval history: Stable overnight Diarrhea better No new complaints today Fatigue when talking Physical Exam Vital Signs: Vital Signs: Last Vital Signs Temp 96.9 F 06/04/22 15:48 Pulse 78 06/04/22 15:48 Resp 18 06/04/22 15:48 BP 112/59 L 06/04/22 15:48 Pulse Ox 97 06/04/22 15:48 O2 Del Method Room Air 06/04/22 15:48 O2 Flow Rate 94 06/02/22 07:18 BMI result Body Mass Index 32.7 Const: Other: General: AO X 3, no acute distress Resp: CTA bilateral CVS: S1,S2,RRR GI: +BS, NT, no distention Skin: No rash Neuro: motor grossly intact, but generally weak- Psych: appropriate affect General: no acute distress Extrem: Other: No edema Objective Data Labs 06/01/22 14:25 06/04/22 07:52 Labs: Laboratory Results - last 24 hr 06/03/22 06/03/22 06/04/22 16:26 20:35 07:17 Sodium Potassium Chloride Carbon Dioxide Anion Gap BUN Creatinine Estim Creat Clear Calc Estimated GFR POC Glucose 201 H 217 H 145 H Random Glucose Calcium 06/04/22 06/04/22 07:52 11:10 Sodium 136 Potassium 4.6 Chloride 108 Carbon Dioxide 21 L Anion Gap 12 BUN 41 H Creatinine 2.24 H Estim Creat Clear Calc 19.6 Estimated GFR 21 POC Glucose 181 H Random Glucose 131 H Calcium 8.7 Microbiology Microbiology Results: Microbiology 06/01/22 16:03 Blood - Venous Blood Culture - Preliminary No growth after 48 hours. 06/01/22 16:03 Blood - Venous Blood Culture - Preliminary No growth after 48 hours. Procedures Date of Service Date of Service: 06/04/22 Assessment & Plan Assessment and plan (1) Acute kidney injury superimposed on CKD: Status: Acute (2) Acute hyperkalemia: Status: Acute Assessment and Plan: TISHA was multifactorial; prerenal while on an ARB in a pt with also cirrhosis and dm Creat slowly improving (3) Elevated lactic acid level: Status: Acute Assessment and Plan: Likely due to metformin This has now been discontinued (4) HTN (hypertension): Status: Acute Assessment and Plan: BP 110 systolic off of all antihypertensives Plan Ok for discharge Needs renal followup at discharge Has she been on insulin before? Does she need education Do not resume losartan or metformin Time Spent With Patient Time: Total time managing care of this patient today ____ minutes. Progress Note: Quality Stroke Does the patient have a stroke diagnosis?: No
== END 2022-06-04 16:21 | disposition skilled nursing facility (03) | DRG 683 ==
LOC: HO.ED 18:13 → HO.EDOVER 18:25 → HO.IMC 20:20
PROVIDERS: Admitting Provider Internal Medicine; Emergency Provider Emergency Medicine; PCP Internal Medicine; Visit Provider Internal Medicine
DX: N17.9 Acute kidney failure, unspecified (principal); E87.21 Acute metabolic acidosis; K52.1 Toxic gastroenteritis and colitis; I12.9 Hypertensive chronic kidney disease with stage 1 through stage 4 chronic kidney disease, or unspecified chronic kidney disease; N18.4 Chronic kidney disease, stage 4 (severe); E11.22 Type 2 diabetes mellitus with diabetic chronic kidney disease; K70.30 Alcoholic cirrhosis of liver without ascites; E87.5 Hyperkalemia; E86.0 Dehydration; E78.00 Pure hypercholesterolemia, unspecified; T50.4X5A Adverse effect of drugs affecting uric acid metabolism, initial encounter; L89.301 Pressure ulcer of unspecified buttock, stage 1; E11.40 Type 2 diabetes mellitus with diabetic neuropathy, unspecified; T38.3X5A Adverse effect of insulin and oral hypoglycemic [antidiabetic] drugs, initial encounter; Z20.822 Contact with and (suspected) exposure to COVID-19; Z87.891 Personal history of nicotine dependence; Z79.4 Long term (current) use of insulin; Z79.899 Other long term (current) drug therapy
CPT/HCPCS: 36415; 70450; 74176; 80048; 80076; 81003; 82947; 83605; 83690; 83735; 83935; 84300; 84484; 85025; 85610; 87040; 87493; 87507; 87635; 93005; 94640; 97162; 99212; 99285; J0613; J1643; J2405

== ENCOUNTER 2022-06-07 06:10 | Outpatient (REF) | payer OTHER, SELFPAY ==
[2022-06-07 05:59] LABS: MANUAL DIFF FLAG NO
[2022-06-07 06:59] LABS: Basophils Percent Auto 0.8 % (0-2); Eosinophils Absolute Auto 0.4 X10*3/uL (0.0-0.4); Eosinophils Percent Auto 9.3 % (0-4); Hematocrit 32.8 % (37.0-47.0); Hemoglobin 10.2 g/dl (12.0-16.0); Imm Gran Abs Auto 0.01 X10*3/uL (0.00-0.03); Imm Gran Pct Auto 0.3 % (0.0-0.4); Lymphocytes Absolute Auto 0.8 X10*3/uL (1.2-4.9); Lymphocytes Percent Auto 20.5 % (20-40); Mean Corpuscular HGB Conc 31.1 g/dl (31.0-35.0); Mean Corpuscular Volume 96.5 fL (80.0-98.0); Mean Platelet Volume 10.2 fL (9.4-12.3); Monocytes Absolute Auto 0.4 X10*3/uL (0.1-1.2); Monocytes Percent Auto 11.1 % (2-11); Neutrophils Absolute Auto 2.2 x10*3/uL (2.0-8.3); Platelet Count 126 X10*3/uL (160-400); Red Cell Distribution Width 15.1 % (11.0-16.0); White Blood Count 3.9 X10*3/uL (4.8-10.8)
[2022-06-07 07:41] LABS: Anion Gap 10 (12-20); Blood Urea Nitrogen 31 mg/dL (9-16); Calcium 8.7 mg/dL (8.4-10.2); Carbon Dioxide 27 mmol/L (22-29); Chloride 107 mmol/L (96-108); Estimated Glomerular Filt Rate 28; Glucose Random 80 mg/dL (60-115); Potassium 4.4 mmol/L (3.3-5.1); Sodium 140 mmol/L (135-145); Uric Acid 3.2 mg/dL (2.4-5.7)
== END 2022-06-07 06:11 | disposition home or self-care (01) ==
LOC: HO.MMNH3L 06:10
PROVIDERS: Visit Provider Family Medicine
DX: E11.42 Type 2 diabetes mellitus with diabetic polyneuropathy (principal); I10 Essential (primary) hypertension; R60.0 Localized edema
CPT/HCPCS: 36415; 80048; 84550; 85025

== ENCOUNTER 2022-09-22 06:09 | Outpatient (REF) | payer OTHER, SELFPAY ==
[2022-09-22 06:11] LABS: MANUAL DIFF FLAG NO
[2022-09-22 06:51] LABS: Basophils Percent Auto 0.6 % (0-2); Eosinophils Absolute Auto 0.3 X10*3/uL (0.0-0.4); Hematocrit 36.1 % (37.0-47.0); Hemoglobin 11.6 g/dl (12.0-16.0); Imm Gran Abs Auto 0.01 X10*3/uL (0.00-0.03); Imm Gran Pct Auto 0.2 % (0.0-0.4); Lymphocytes Absolute Auto 1.5 X10*3/uL (1.2-4.9); Mean Corpuscular HGB Conc 32.1 g/dl (31.0-35.0); Mean Corpuscular Hemoglobin 30.5 pg (27.0-33.0); Mean Platelet Volume 9.9 fL (9.4-12.3); Monocytes Absolute Auto 0.5 X10*3/uL (0.1-1.2); Monocytes Percent Auto 9.3 % (2-11); Neutrophils Absolute Auto 2.5 x10*3/uL (2.0-8.3); Neutrophils Percent Auto 51.9 % (45-73); Platelet Count 111 X10*3/uL (160-400); Red Cell Distribution Width 14.5 % (11.0-16.0); White Blood Count 4.8 X10*3/uL (4.8-10.8)
[2022-09-22 07:03] LABS: Alanine Aminotransferase 34 U/L (0-31); Albumin Level 2.9 g/dL (3.5-5.0); Alkaline Phosphatase 85 U/L (39-117); Anion Gap 15 (12-20); Aspartate Amino Transferase 23 U/L (5-31); Bilirubin Total 0.5 mg/dL (0.0-1.0); Blood Urea Nitrogen 42 mg/dL (9-16); Calcium 9.5 mg/dL (8.4-10.2); Carbon Dioxide 30 mmol/L (22-29); Chloride 101 mmol/L (96-108); Estimated Glomerular Filt Rate 39; Glucose Random 136 mg/dL (60-115); Potassium 4.1 mmol/L (3.3-5.1); Sodium 142 mmol/L (135-145); Total Protein 5.7 g/dL (6.5-8.0); Uric Acid 6.8 mg/dL (2.4-5.7)
== END 2022-09-22 06:10 | disposition home or self-care (01) ==
LOC: HO.MMNH3L 06:09
PROVIDERS: Visit Provider Family Medicine
DX: I10 Essential (primary) hypertension (principal); M10.09 Idiopathic gout, multiple sites
CPT/HCPCS: 36415; 80053; 84550; 85025

== ENCOUNTER 2022-10-01 20:50 | Outpatient (REF) | payer OTHER, SELFPAY | END 2022-10-01 20:51 | disposition home or self-care (01) | LOC: HO.MMNH3L 20:50 | PROVIDERS: Visit Provider Family Medicine | DX: R50.9 Fever, unspecified (principal) | CPT/HCPCS: 87070; 87147 ==

== ENCOUNTER 2022-12-08 00:11 | Outpatient (REF) | payer OTHER, SELFPAY ==
[2022-12-08 00:27] LABS: Appearance Urine Clear; Color Urine Yellow; Glucose Urine UA 100 mg/dL (Negative); Leukocyte Esterase Urine Trace (Negative); Nitrite Urine Negative (Negative); PH 6.5 (5.0-9.0); Specific Gravity - Urine 1.015 (1.005-1.025); UMIC TRIGGER UA YES; Urine Blood Negative (Negative); Urine Ketones Negative (Negative); Urine Protein Negative (Neg-Trace)
[2022-12-08 00:35] LABS: Bacteria Urine None Seen (None Seen); Hyaline Casts Urine 0-2 /LPF (0-2); RBC Urine 0-2 /HPF (0-2); Squamous Epithelial Cell Urine 0-2 /HPF (0-2); WBC Urine 0-5 /HPF (0-5)
[2022-12-08 01:24] LABS: Creatinine Urine 47.48 mg/dL; Microalbum/Creatinine Ratio Ur 16.8 ug/mg cr (<30); Total Protein Urine Random < 7 mg/dL (<12)
== END 2022-12-08 00:12 | disposition home or self-care (01) ==
LOC: HO.MMNH3L 00:11
PROVIDERS: Visit Provider Family Medicine
DX: Z13.89 Encounter for screening for other disorder (principal)
CPT/HCPCS: 81001; 82043; 82570; 84156

== ENCOUNTER 2022-12-08 05:42 | Outpatient (REF) | payer OTHER, SELFPAY ==
[2022-12-08 05:50] LABS: MANUAL DIFF FLAG NO
[2022-12-08 06:31] LABS: Basophils Absolute Auto 0.1 X10*3/uL (0.0-0.2); Basophils Percent Auto 1.2 % (0-2); Eosinophils Absolute Auto 0.5 X10*3/uL (0.0-0.4); Eosinophils Percent Auto 9.4 % (0-4); Hematocrit 33.1 % (37.0-47.0); Hemoglobin 10.9 g/dl (12.0-16.0); Imm Gran Abs Auto 0.01 X10*3/uL (0.00-0.03); Imm Gran Pct Auto 0.2 % (0.0-0.4); Lymphocytes Absolute Auto 1.1 X10*3/uL (1.2-4.9); Lymphocytes Percent Auto 23.4 % (20-40); Mean Corpuscular HGB Conc 32.9 g/dl (31.0-35.0); Mean Corpuscular Hemoglobin 31.4 pg (27.0-33.0); Mean Corpuscular Volume 95.4 fL (80.0-98.0); Mean Platelet Volume 9.8 fL (9.4-12.3); Monocytes Absolute Auto 0.6 X10*3/uL (0.1-1.2); Monocytes Percent Auto 11.5 % (2-11); Neutrophils Absolute Auto 2.6 x10*3/uL (2.0-8.3); Neutrophils Percent Auto 54.3 % (45-73); Platelet Count 114 X10*3/uL (160-400); Red Blood Count 3.47 X10*6/uL (4.20-5.50); Red Cell Distribution Width 13.2 % (11.0-16.0); White Blood Count 4.9 X10*3/uL (4.8-10.8)
[2022-12-08 06:41] LABS: Albumin Level 2.9 g/dL (3.5-5.0); Anion Gap 16 (12-20); Blood Urea Nitrogen 34 mg/dL (9-16); Calcium 9.2 mg/dL (8.4-10.2); Carbon Dioxide 27 mmol/L (22-29); Chloride 103 mmol/L (96-108); Estimated Glomerular Filt Rate 37; Magnesium 2.1 mg/dL (1.6-2.6); Phosphorus 3.4 mg/dL (2.7-4.5); Potassium 3.9 mmol/L (3.3-5.1); Sodium 142 mmol/L (135-145); Total Protein 5.6 g/dL (6.5-8.0)
[2022-12-08 06:57] LABS: Vitamin D 25-OH Total 32.5 ng/mL (>30)
[2022-12-10 18:32] LABS: Calcium (PTHI) 9.1 mg/dL (8.6-10.4); PTHI 16 pg/mL (16-77)
== END 2022-12-08 05:43 | disposition home or self-care (01) ==
LOC: HO.MMNH3L 05:42
PROVIDERS: Visit Provider Family Medicine
DX: I10 Essential (primary) hypertension (principal); J41.1 Mucopurulent chronic bronchitis
CPT/HCPCS: 36415; 80051; 82040; 82306; 82310; 82565; 83735; 83970; 84100; 84155; 84520; 85025

== ENCOUNTER 2023-01-24 07:16 | Outpatient (REF) | payer OTHER, SELFPAY ==
[2023-01-24 06:12] LABS: MANUAL DIFF FLAG NO
[2023-01-24 07:12] LABS: Basophils Percent Auto 0.8 % (0-2); Eosinophils Absolute Auto 0.4 X10*3/uL (0.0-0.4); Eosinophils Percent Auto 7.9 % (0-4); Hematocrit 33.8 % (37.0-47.0); Hemoglobin 11.1 g/dl (12.0-16.0); Imm Gran Abs Auto 0.02 X10*3/uL (0.00-0.03); Imm Gran Pct Auto 0.4 % (0.0-0.4); Lymphocytes Absolute Auto 1.3 X10*3/uL (1.2-4.9); Lymphocytes Percent Auto 26.4 % (20-40); Mean Corpuscular HGB Conc 32.8 g/dl (31.0-35.0); Mean Corpuscular Hemoglobin 31.1 pg (27.0-33.0); Mean Corpuscular Volume 94.7 fL (80.0-98.0); Mean Platelet Volume 9.6 fL (9.4-12.3); Monocytes Absolute Auto 0.6 X10*3/uL (0.1-1.2); Monocytes Percent Auto 11.8 % (2-11); Neutrophils Absolute Auto 2.6 x10*3/uL (2.0-8.3); Neutrophils Percent Auto 52.7 % (45-73); Platelet Count 113 X10*3/uL (160-400); Red Blood Count 3.57 X10*6/uL (4.20-5.50); Red Cell Distribution Width 13.8 % (11.0-16.0); White Blood Count 4.9 X10*3/uL (4.8-10.8)
[2023-01-24 07:28] LABS: Estimated Average Glucose 143 mg/dL; Hemoglobin A1c % 6.6 % (<6.0)
[2023-01-24 07:39] LABS: Alanine Aminotransferase 19 U/L (0-31); Albumin Level 3.1 g/dL (3.5-5.0); Alkaline Phosphatase 69 U/L (39-117); Anion Gap 15 (12-20); Aspartate Amino Transferase 20 U/L (5-31); Bilirubin Total 0.4 mg/dL (0.0-1.0); Blood Urea Nitrogen 42 mg/dL (9-16); Calcium 9.5 mg/dL (8.4-10.2); Carbon Dioxide 31 mmol/L (22-29); Chloride 102 mmol/L (96-108); Estimated Glomerular Filt Rate 35; Glucose Random 71 mg/dL (60-115); Potassium 4.1 mmol/L (3.3-5.1); Sodium 144 mmol/L (135-145)
[2023-01-24 07:49] LABS: Thyroid Stimulating Hormone 4.74 uIU/mL (0.32-4.0)
== END 2023-01-24 07:17 | disposition home or self-care (01) ==
LOC: HO.MMNH3L 07:16
PROVIDERS: Visit Provider Family Medicine
DX: E11.42 Type 2 diabetes mellitus with diabetic polyneuropathy (principal); E11.22 Type 2 diabetes mellitus with diabetic chronic kidney disease; I12.9 Hypertensive chronic kidney disease with stage 1 through stage 4 chronic kidney disease, or unspecified chronic kidney disease; N18.31 Chronic kidney disease, stage 3a; M15.0 Primary generalized (osteo)arthritis
CPT/HCPCS: 36415; 80053; 83036; 84443; 85025

== ENCOUNTER 2023-02-22 06:30 | Outpatient (REF) | payer OTHER, SELFPAY ==
[2023-02-22 06:16] LABS: MANUAL DIFF FLAG NO
[2023-02-22 06:27] LABS: Basophils Absolute Auto 0.1 X10*3/uL (0.0-0.2); Basophils Percent Auto 0.9 % (0-2); Eosinophils Absolute Auto 0.4 X10*3/uL (0.0-0.4); Eosinophils Percent Auto 6.9 % (0-4); Imm Gran Abs Auto 0.02 X10*3/uL (0.00-0.03); Imm Gran Pct Auto 0.4 % (0.0-0.4); Lymphocytes Absolute Auto 1.2 X10*3/uL (1.2-4.9); Lymphocytes Percent Auto 21.5 % (20-40); Mean Corpuscular HGB Conc 32.3 g/dl (31.0-35.0); Mean Corpuscular Hemoglobin 30.3 pg (27.0-33.0); Mean Corpuscular Volume 93.9 fL (80.0-98.0); Mean Platelet Volume 9.7 fL (9.4-12.3); Monocytes Absolute Auto 0.4 X10*3/uL (0.1-1.2); Neutrophils Absolute Auto 3.3 x10*3/uL (2.0-8.3); Neutrophils Percent Auto 62.3 % (45-73); Platelet Count 110 X10*3/uL (160-400); Red Cell Distribution Width 13.9 % (11.0-16.0); White Blood Count 5.4 X10*3/uL (4.8-10.8)
[2023-02-22 06:35] LABS: Estimated Average Glucose 143 mg/dL; Hemoglobin A1c % 6.6 % (<6.0)
[2023-02-22 07:11] LABS: Alanine Aminotransferase 32 U/L (0-31); Albumin Level 3.1 g/dL (3.5-5.0); Alkaline Phosphatase 64 U/L (39-117); Anion Gap 13 (12-20); Aspartate Amino Transferase 26 U/L (5-31); Bilirubin Total 0.4 mg/dL (0.0-1.0); Blood Urea Nitrogen 38 mg/dL (9-16); Calcium 9.1 mg/dL (8.4-10.2); Carbon Dioxide 29 mmol/L (22-29); Chloride 105 mmol/L (96-108); Estimated Glomerular Filt Rate 35; Glucose Random 214 mg/dL (60-115); Potassium 4.5 mmol/L (3.3-5.1); Sodium 142 mmol/L (135-145); Total Protein 5.9 g/dL (6.5-8.0)
[2023-02-22 07:14] LABS: Thyroid Stimulating Hormone 3.42 uIU/mL (0.32-4.0)
== END 2023-02-22 06:31 | disposition home or self-care (01) ==
LOC: HO.MMNH3L 06:30
PROVIDERS: Visit Provider Family Medicine
DX: I12.9 Hypertensive chronic kidney disease with stage 1 through stage 4 chronic kidney disease, or unspecified chronic kidney disease (principal); E11.22 Type 2 diabetes mellitus with diabetic chronic kidney disease; N18.31 Chronic kidney disease, stage 3a; M15.0 Primary generalized (osteo)arthritis; E11.42 Type 2 diabetes mellitus with diabetic polyneuropathy
CPT/HCPCS: 36415; 80053; 83036; 84443; 85025

== ENCOUNTER 2023-03-11 05:33 | Outpatient (REF) | payer OTHER, SELFPAY ==
[2023-03-11 05:37] LABS: MANUAL DIFF FLAG NO
[2023-03-11 05:59] LABS: Basophils Percent Auto 0.9 % (0-2); Eosinophils Absolute Auto 0.3 X10*3/uL (0.0-0.4); Eosinophils Percent Auto 7.1 % (0-4); Hematocrit 32.4 % (37.0-47.0); Hemoglobin 10.7 g/dl (12.0-16.0); Imm Gran Abs Auto 0.01 X10*3/uL (0.00-0.03); Imm Gran Pct Auto 0.2 % (0.0-0.4); Lymphocytes Percent Auto 21.8 % (20-40); Mean Corpuscular Hemoglobin 30.6 pg (27.0-33.0); Mean Corpuscular Volume 92.6 fL (80.0-98.0); Mean Platelet Volume 9.1 fL (9.4-12.3); Monocytes Absolute Auto 0.5 X10*3/uL (0.1-1.2); Monocytes Percent Auto 10.7 % (2-11); Neutrophils Absolute Auto 2.8 x10*3/uL (2.0-8.3); Neutrophils Percent Auto 59.3 % (45-73); Platelet Count 101 X10*3/uL (160-400); Red Cell Distribution Width 13.5 % (11.0-16.0); White Blood Count 4.7 X10*3/uL (4.8-10.8)
[2023-03-11 06:11] LABS: Appearance Urine Cloudy; Color Urine Yellow; Glucose Urine UA Negative (Negative); Leukocyte Esterase Urine Negative (Negative); Nitrite Urine Negative (Negative); Urine Blood Negative (Negative); Urine Ketones Negative (Negative); Urine Protein Negative (Neg-Trace)
[2023-03-11 06:14] LABS: Amylase 77 U/L (28-100); Anion Gap 12 (12-20); Blood Urea Nitrogen 43 mg/dL (9-16); Calcium 9.1 mg/dL (8.4-10.2); Carbon Dioxide 31 mmol/L (22-29); Chloride 101 mmol/L (96-108); Estimated Glomerular Filt Rate 32; Glucose Random 86 mg/dL (60-115); Lipase 39 U/L (8-78); Potassium 4.3 mmol/L (3.3-5.1); Sodium 140 mmol/L (135-145)
== END 2023-03-11 05:34 | disposition home or self-care (01) ==
LOC: HO.MMNH3L 05:33
PROVIDERS: Visit Provider Family Medicine
DX: I10 Essential (primary) hypertension (principal); M10.9 Gout, unspecified
CPT/HCPCS: 36415; 80048; 81003; 82150; 83690; 85025

== ENCOUNTER 2023-03-28 06:10 | Outpatient (REF) | payer MEDICARE, SELFPAY ==
[2023-03-28 06:07] LABS: MANUAL DIFF FLAG NO
[2023-03-28 06:43] LABS: Basophils Absolute Auto 0.1 X10*3/uL (0.0-0.2); Basophils Percent Auto 0.9 % (0-2); Eosinophils Absolute Auto 0.3 X10*3/uL (0.0-0.4); Hematocrit 32.8 % (37.0-47.0); Hemoglobin 10.8 g/dl (12.0-16.0); Imm Gran Abs Auto 0.01 X10*3/uL (0.00-0.03); Imm Gran Pct Auto 0.2 % (0.0-0.4); Lymphocytes Absolute Auto 1.5 X10*3/uL (1.2-4.9); Lymphocytes Percent Auto 26.5 % (20-40); Mean Corpuscular HGB Conc 32.9 g/dl (31.0-35.0); Mean Corpuscular Hemoglobin 30.6 pg (27.0-33.0); Mean Corpuscular Volume 92.9 fL (80.0-98.0); Mean Platelet Volume 9.8 fL (9.4-12.3); Monocytes Absolute Auto 0.5 X10*3/uL (0.1-1.2); Monocytes Percent Auto 8.3 % (2-11); Neutrophils Absolute Auto 3.2 x10*3/uL (2.0-8.3); Neutrophils Percent Auto 58.1 % (45-73); Platelet Count 119 X10*3/uL (160-400); Red Blood Count 3.53 X10*6/uL (4.20-5.50); Red Cell Distribution Width 13.2 % (11.0-16.0); White Blood Count 5.5 X10*3/uL (4.8-10.8)
[2023-03-28 07:08] LABS: Estimated Average Glucose 154 mg/dL; Hemoglobin A1C 151.1256 umol/L
[2023-03-28 07:13] LABS: Anion Gap 15 (12-20); Blood Urea Nitrogen 53 mg/dL (9-16); Calcium 9.3 mg/dL (8.4-10.2); Carbon Dioxide 30 mmol/L (22-29); Chloride 100 mmol/L (96-108); Estimated Glomerular Filt Rate 28; Glucose Random 122 mg/dL (60-115); Potassium 4.3 mmol/L (3.3-5.1); Sodium 141 mmol/L (135-145)
[2023-03-28 07:15] LABS: Thyroid Stimulating Hormone 2.62 uIU/mL (0.32-4.0)
== END 2023-03-28 06:11 | disposition home or self-care (01) ==
LOC: HO.MMNH3L 06:10
PROVIDERS: Visit Provider Family Medicine
DX: I10 Essential (primary) hypertension (principal); E78.5 Hyperlipidemia, unspecified; E11.42 Type 2 diabetes mellitus with diabetic polyneuropathy
CPT/HCPCS: 36415; 80048; 83036; 84443; 85025

== ENCOUNTER 2023-04-11 05:45 | Outpatient (REF) | payer MEDICARE, SELFPAY ==
[2023-04-11 05:47] LABS: MANUAL DIFF FLAG NO
[2023-04-11 06:53] LABS: Basophils Percent Auto 0.7 % (0-2); Eosinophils Absolute Auto 0.4 X10*3/uL (0.0-0.4); Eosinophils Percent Auto 7.1 % (0-4); Hematocrit 32.1 % (37.0-47.0); Hemoglobin 10.7 g/dl (12.0-16.0); Imm Gran Abs Auto 0.01 X10*3/uL (0.00-0.03); Imm Gran Pct Auto 0.2 % (0.0-0.4); Lymphocytes Absolute Auto 1.2 X10*3/uL (1.2-4.9); Lymphocytes Percent Auto 22.5 % (20-40); Mean Corpuscular HGB Conc 33.3 g/dl (31.0-35.0); Mean Corpuscular Hemoglobin 30.7 pg (27.0-33.0); Mean Platelet Volume 9.3 fL (9.4-12.3); Monocytes Absolute Auto 0.6 X10*3/uL (0.1-1.2); Monocytes Percent Auto 10.4 % (2-11); Neutrophils Absolute Auto 3.2 x10*3/uL (2.0-8.3); Neutrophils Percent Auto 59.1 % (45-73); Platelet Count 136 X10*3/uL (160-400); Red Blood Count 3.49 X10*6/uL (4.20-5.50); Red Cell Distribution Width 12.9 % (11.0-16.0); White Blood Count 5.5 X10*3/uL (4.8-10.8)
[2023-04-11 07:07] LABS: Amylase 50 U/L (28-100); Anion Gap 11 (12-20); Blood Urea Nitrogen 36 mg/dL (9-16); Calcium 8.9 mg/dL (8.4-10.2); Carbon Dioxide 32 mmol/L (22-29); Chloride 97 mmol/L (96-108); Estimated Glomerular Filt Rate 35; Glucose Random 100 mg/dL (60-115); Lipase 25 U/L (8-78); Potassium 4.2 mmol/L (3.3-5.1); Sodium 136 mmol/L (135-145)
== END 2023-04-11 05:46 | disposition home or self-care (01) ==
LOC: HO.MMNH3L 05:45
PROVIDERS: Visit Provider Family Medicine
DX: Z13.89 Encounter for screening for other disorder (principal)
CPT/HCPCS: 36415; 80048; 82150; 83690; 85025

== ENCOUNTER 2023-04-25 06:21 | Outpatient (REF) | payer MEDICARE, SELFPAY ==
[2023-04-25 05:54] LABS: MANUAL DIFF FLAG NO
[2023-04-25 06:11] LABS: Basophils Percent Auto 0.6 % (0-2); Eosinophils Absolute Auto 0.3 X10*3/uL (0.0-0.4); Imm Gran Abs Auto 0.01 X10*3/uL (0.00-0.03); Imm Gran Pct Auto 0.2 % (0.0-0.4); Lymphocytes Absolute Auto 1.1 X10*3/uL (1.2-4.9); Lymphocytes Percent Auto 24.1 % (20-40); Mean Corpuscular HGB Conc 33.3 g/dl (31.0-35.0); Mean Corpuscular Hemoglobin 30.8 pg (27.0-33.0); Mean Corpuscular Volume 92.3 fL (80.0-98.0); Mean Platelet Volume 9.4 fL (9.4-12.3); Monocytes Absolute Auto 0.4 X10*3/uL (0.1-1.2); Monocytes Percent Auto 8.8 % (2-11); Neutrophils Absolute Auto 2.8 x10*3/uL (2.0-8.3); Neutrophils Percent Auto 60.3 % (45-73); Platelet Count 111 X10*3/uL (160-400); Red Blood Count 3.25 X10*6/uL (4.20-5.50); Red Cell Distribution Width 12.7 % (11.0-16.0); White Blood Count 4.7 X10*3/uL (4.8-10.8)
[2023-04-25 06:43] LABS: Alanine Aminotransferase 15 U/L (0-31); Albumin Level 2.8 g/dL (3.5-5.0); Alkaline Phosphatase 55 U/L (39-117); Anion Gap 10 (12-20); Aspartate Amino Transferase 16 U/L (5-31); Bilirubin Total 0.3 mg/dL (0.0-1.0); Blood Urea Nitrogen 41 mg/dL (9-16); Calcium 8.6 mg/dL (8.4-10.2); Carbon Dioxide 30 mmol/L (22-29); Chloride 102 mmol/L (96-108); Estimated Glomerular Filt Rate 34; Glucose Random 107 mg/dL (60-115); Potassium 4.1 mmol/L (3.3-5.1); Sodium 138 mmol/L (135-145); Total Protein 5.5 g/dL (6.5-8.0)
[2023-04-25 07:35] LABS: Estimated Average Glucose 163 mg/dL; Hemoglobin A1c % 7.3 % (<6.0)
== END 2023-04-25 06:22 | disposition home or self-care (01) ==
LOC: HO.MMNH3L 06:21
PROVIDERS: Visit Provider Family Medicine
DX: I12.9 Hypertensive chronic kidney disease with stage 1 through stage 4 chronic kidney disease, or unspecified chronic kidney disease (principal); N18.31 Chronic kidney disease, stage 3a; M15.0 Primary generalized (osteo)arthritis
CPT/HCPCS: 36415; 80053; 83036; 85025

== ENCOUNTER 2023-05-13 05:32 | Outpatient (REF) | payer MEDICARE, SELFPAY ==
[2023-05-13 06:08] LABS: Alanine Aminotransferase 20 U/L (0-31); Alkaline Phosphatase 58 U/L (39-117); Anion Gap 13 (12-20); Aspartate Amino Transferase 19 U/L (5-31); Bilirubin Total 0.3 mg/dL (0.0-1.0); Blood Urea Nitrogen 31 mg/dL (9-16); Calcium 8.5 mg/dL (8.4-10.2); Carbon Dioxide 28 mmol/L (22-29); Chloride 102 mmol/L (96-108); Estimated Glomerular Filt Rate 38; Glucose Random 187 mg/dL (60-115); Sodium 139 mmol/L (135-145); Total Protein 5.7 g/dL (6.5-8.0)
== END 2023-05-13 05:33 | disposition home or self-care (01) ==
LOC: HO.MMNH3L 05:32
PROVIDERS: Visit Provider Family Medicine
DX: E11.42 Type 2 diabetes mellitus with diabetic polyneuropathy (principal); N18.31 Chronic kidney disease, stage 3a; E78.5 Hyperlipidemia, unspecified
CPT/HCPCS: 36415; 80053

== ENCOUNTER 2023-05-16 06:08 | Outpatient (REF) | payer MEDICARE, SELFPAY ==
[2023-05-16 06:11] LABS: MANUAL DIFF FLAG NO
[2023-05-16 07:01] LABS: Basophils Percent Auto 0.9 % (0-2); Eosinophils Absolute Auto 0.3 X10*3/uL (0.0-0.4); Hematocrit 30.2 % (37.0-47.0); Hemoglobin 9.8 g/dl (12.0-16.0); Imm Gran Abs Auto 0.01 X10*3/uL (0.00-0.03); Imm Gran Pct Auto 0.2 % (0.0-0.4); Lymphocytes Absolute Auto 1.2 X10*3/uL (1.2-4.9); Lymphocytes Percent Auto 25.9 % (20-40); Mean Corpuscular HGB Conc 32.5 g/dl (31.0-35.0); Mean Corpuscular Hemoglobin 30.3 pg (27.0-33.0); Mean Corpuscular Volume 93.5 fL (80.0-98.0); Mean Platelet Volume 9.2 fL (9.4-12.3); Monocytes Absolute Auto 0.5 X10*3/uL (0.1-1.2); Monocytes Percent Auto 10.1 % (2-11); Neutrophils Absolute Auto 2.5 x10*3/uL (2.0-8.3); Neutrophils Percent Auto 55.9 % (45-73); Platelet Count 111 X10*3/uL (160-400); Red Blood Count 3.23 X10*6/uL (4.20-5.50); Red Cell Distribution Width 12.6 % (11.0-16.0); White Blood Count 4.6 X10*3/uL (4.8-10.8)
[2023-05-16 07:11] LABS: Alanine Aminotransferase 19 U/L (0-31); Albumin Level 2.9 g/dL (3.5-5.0); Alkaline Phosphatase 59 U/L (39-117); Anion Gap 12 (12-20); Aspartate Amino Transferase 17 U/L (5-31); Bilirubin Total 0.4 mg/dL (0.0-1.0); Blood Urea Nitrogen 24 mg/dL (9-16); Calcium 8.8 mg/dL (8.4-10.2); Carbon Dioxide 27 mmol/L (22-29); Chloride 105 mmol/L (96-108); Estimated Glomerular Filt Rate 43; Glucose Random 139 mg/dL (60-115); Potassium 4.1 mmol/L (3.3-5.1); Sodium 140 mmol/L (135-145); Total Protein 5.6 g/dL (6.5-8.0)
[2023-05-16 08:04] LABS: Estimated Average Glucose 157 mg/dL; Hemoglobin A1c % 7.1 % (<6.0)
== END 2023-05-16 06:09 | disposition home or self-care (01) ==
LOC: HO.MMNH3L 06:08
PROVIDERS: Visit Provider Family Medicine
DX: M51.36 Other intervertebral disc degeneration, lumbar region (principal); J41.1 Mucopurulent chronic bronchitis; M15.0 Primary generalized (osteo)arthritis
CPT/HCPCS: 36415; 80053; 83036; 85025

== ENCOUNTER 2023-05-23 06:49 | Outpatient (REF) | payer MEDICARE, MEDICAID, SELFPAY ==
[2023-05-23 06:00] LABS: MANUAL DIFF FLAG NO
[2023-05-23 06:21] LABS: Eosinophils Absolute Auto 0.4 X10*3/uL (0.0-0.4); Eosinophils Percent Auto 8.6 % (0-4); Hematocrit 31.3 % (37.0-47.0); Hemoglobin 10.4 g/dl (12.0-16.0); Imm Gran Abs Auto 0.01 X10*3/uL (0.00-0.03); Imm Gran Pct Auto 0.2 % (0.0-0.4); Lymphocytes Percent Auto 25.7 % (20-40); Mean Corpuscular HGB Conc 33.2 g/dl (31.0-35.0); Mean Corpuscular Hemoglobin 30.4 pg (27.0-33.0); Mean Corpuscular Volume 91.5 fL (80.0-98.0); Mean Platelet Volume 9.5 fL (9.4-12.3); Monocytes Absolute Auto 0.5 X10*3/uL (0.1-1.2); Monocytes Percent Auto 11.6 % (2-11); Neutrophils Absolute Auto 2.1 x10*3/uL (2.0-8.3); Neutrophils Percent Auto 52.9 % (45-73); Platelet Count 106 X10*3/uL (160-400); Red Blood Count 3.42 X10*6/uL (4.20-5.50); Red Cell Distribution Width 12.7 % (11.0-16.0); White Blood Count 4.1 X10*3/uL (4.8-10.8)
[2023-05-23 06:44] LABS: Alanine Aminotransferase 16 U/L (0-31); Alkaline Phosphatase 59 U/L (39-117); Anion Gap 11 (12-20); Aspartate Amino Transferase 18 U/L (5-31); Bilirubin Total 0.4 mg/dL (0.0-1.0); Blood Urea Nitrogen 28 mg/dL (9-16); Calcium 8.3 mg/dL (8.4-10.2); Carbon Dioxide 28 mmol/L (22-29); Chloride 104 mmol/L (96-108); Estimated Glomerular Filt Rate 46; Glucose Random 81 mg/dL (60-115); Potassium 4.1 mmol/L (3.3-5.1); Sodium 139 mmol/L (135-145); Total Protein 5.6 g/dL (6.5-8.0)
[2023-05-23 07:43] LABS: Estimated Average Glucose 148 mg/dL; Hemoglobin A1c % 6.8 % (<6.0)
== END 2023-05-23 06:50 | disposition home or self-care (01) ==
LOC: HO.MMNH2L 06:49
PROVIDERS: Visit Provider Family Medicine
DX: I12.9 Hypertensive chronic kidney disease with stage 1 through stage 4 chronic kidney disease, or unspecified chronic kidney disease (principal); N18.31 Chronic kidney disease, stage 3a; M15.0 Primary generalized (osteo)arthritis; E11.9 Type 2 diabetes mellitus without complications; K42.0 Umbilical hernia with obstruction, without gangrene; K40.90 Unilateral inguinal hernia, without obstruction or gangrene, not specified as recurrent
CPT/HCPCS: 36415; 80053; 83036; 85025; 99202

== ENCOUNTER 2023-05-23 09:12 | Outpatient (AMB) | payer MEDICARE, MEDICAID, SELFPAY ==
--- NOTE | 2023-05-23 09:19 | A.OFFVIS_ITS ---
Intake Intake Visit Reasons: Hernia Intake Note: Patient's appointment scheduled by [facility]. Patient on stretcher. Abd CT: 06-01-22. Product Safety Specialist Required: No Accompanied by: [facility] Allergies No Known Allergies Allergy (Verified 05/23/23 09:21) HPI HPI Comments History of Present Illness Details Patient presents here from an extended care facility via ambulance/stretcher for evaluation of symptomatic umbilical and left groin hernias. She has had these indeterminate time. She thinks they are increasing in size and becoming more symptomatic. She has no other GI issues or complaints. CT scan confirms both left inguinal and umbilical hernias No prior abdominal surgeries Chart was reviewed and patient evaluated. Several comorbidities most noteworthy cirrhosis. [facility] Medical History CKD (chronic kidney disease), stage IV Chronic alcoholic liver disease Numbness HTN (hypertension) HLD (hyperlipidemia) T2DM (type 2 diabetes mellitus) Lumbar radiculopathy Hair loss Hearing loss Umbilical hernia Hypovitaminosis D Constipation by delayed colonic transit Pure hypercholesterolemia Depression with anxiety Gout Moderate asthma Essential hypertension Diabetes mellitus Lumbar degenerative disc disease Neuropathy Surgical History History of colonoscopy History of total abdominal hysterectomy and bilateral salpingo-oophorectomy H/O cervical biopsy History of appendectomy Family History Father Renal failure Mother Fatty liver Ovarian cancer Maternal Aunt Ovarian cancer Breast cancer Brother Colon cancer Social History Household Members: None Housing: Intermediate Do you presently have visiting nurse or other home services: No Alcohol intake: unknown Patient Tobacco Use Status: Former Tobacco user Tobacco use type: Cigarette e-Cigarette/Vaping Use: Never Used Second Hand Smoke Exposure: No Advance Directives Date on File: 12/22/20 service: No Current occupational status: retired Cognitive needs: No Hearing needs: No Vision needs: No Physical Exam Chest Other: Chest breath sounds bilaterally, HS 1 in 2 GI Other: Patient was evaluated in her stretcher. Corpulent abdomen. A proximally 2 cm incarcerated umbilical hernia mildly tender. Abdomen otherwise benign. Right groin negative. Left groin demonstrated left inguinal hernia. Assessment & Plan Assessment & Plan (1) Umbilical hernia, incarcerated: Code(s): K42.0 - Umbilical hernia with obstruction, without gangrene (2) Left inguinal hernia: Code(s): K40.90 - Unilateral inguinal hernia, without obstruction or gangrene, not specified as recurrent Plan Risks, benefits, alternatives of open repair of both incarcerated umbilical hernia and left inguinal hernia reviewed with the patient and included but not limited to bleeding, infection, recurrence, numbness, pain, scarring the patient was to proceed. All questions answered. Arrangements made for this. We will also obtain medical clearance. Quality Reporting (2019) Adult ([facility] 138/04/14/68) Smoking risk assessment performed?: Yes Patient Tobacco Use Status: Former Tobacco user Coding Level of Care Code New Pt Level 5 (31511) Diagnoses Umbilical hernia, incarcerated K42.0 Left inguinal hernia K40.90
== END 2023-05-23 09:38 | disposition home or self-care (01) ==
PROVIDERS: PCP Internal Medicine; Visit Provider Surgery
DX: K42.0 Umbilical hernia with obstruction, without gangrene (principal); K40.90 Unilateral inguinal hernia, without obstruction or gangrene, not specified as recurrent
CPT/HCPCS: 99204

== ENCOUNTER 2023-07-01 06:58 | Day surgery (SDC) | payer MEDICARE, MEDICAID, SELFPAY ==
--- NOTE | 2023-06-29 15:37 | MHC.SHP ---
Pre-Procedural Eval Section A - 24 Hr Update-Section A only Date of Service: 07/01/23 The patient is an INPATIENT: No Changes since office visit: No Cold of Flu in the past 2 weeks, No New Medical Problems, No Changes in Medication and No Patient answered all questions Section B - Complete if H&P > 30 days Chief Complaint: Umbilical hernia w/o obstruction,Unilateral inguin Details of Present Illness: repair with mesh Allergies: Allergies Allergy/AdvReac Type Severity Reaction Status Date / Time No Known Allergies Allergy Verified 05/23/23 09:21 Review of Systems Sugical H&P ROS: Negative: Constitution, Cardiovascular, Respiratory, Neurological, Psychiatric, Hem-Onc, Allergic/Immunologic, Gastrointestinal, Genitourinary, Musculoskeletal, Integumentary, Endocrine and Eyes/Ears/Nose/Throat Exam Surgical H&P Exam: Normal: HEENT, Normal: Heart, Normal: Lungs, Normal: Extremities, Normal: Abdomen, Normal: Skin and Normal: Neurological Plan I have reviewed the history and physical and performed a pertinent physical examination on my patient. No changes have occurred unless specified. Time Spent With Patient Time: Total time managing care of this patient today ____ minutes.
--- NOTE | 2023-06-30 14:21 | HO.ANESPROP2 ---
Documented by User: Vanessa Mckeon NP 06/30/23 14:25 HPI - Anesthesia Eval Consult details Narrative: 78yo F for OPEN Repair Incarcerated Umbilical Hernia w/mes, Left Hernia Inguinal Reducible with mesh SNF resident: requested last provider eval note, labs, ekg. Pending reciept as of 06/30/23, 1420 CKD DM Asthma Cirrhosis, ETOH Anesthesia Pre-Procedure Meds Is the patient on any of the following meds?: GLP1/DPP4 PMFSH Active Problems Active Problems: All Active Problems Left inguinal hernia (Acute) Umbilical hernia, incarcerated (Acute) Anorectal ulcer (Acute) Varicose veins of right lower extremity with inflammation (Acute) Cirrhosis (Acute) Trochanteric bursitis, right hip (Acute) Chronic alcoholic liver disease (Acute) Numbness (Acute) HTN (hypertension) (Acute) HLD (hyperlipidemia) (Acute) T2DM (type 2 diabetes mellitus) (Acute) Lumbar radiculopathy (Acute) Hair loss (Acute) Hearing loss (Acute) Umbilical hernia (Acute) Hypovitaminosis D (Acute) Constipation by delayed colonic transit (Acute) Pure hypercholesterolemia (Acute) Depression with anxiety (Acute) Gout (Acute) Moderate asthma (Acute) Essential hypertension (Acute) Diabetes mellitus (Acute) Lumbar degenerative disc disease (Acute) Neuropathy (Acute) Past Medical History Medical History Hx of flexible sigmoidoscopy CKD (chronic kidney disease), stage IV Chronic alcoholic liver disease Numbness HTN (hypertension) HLD (hyperlipidemia) T2DM (type 2 diabetes mellitus) Lumbar radiculopathy Hair loss Hearing loss Umbilical hernia Hypovitaminosis D Constipation by delayed colonic transit Pure hypercholesterolemia Depression with anxiety Gout Moderate asthma Essential hypertension Diabetes mellitus Lumbar degenerative disc disease Neuropathy Family History Family History Father Renal failure Mother Fatty liver Ovarian cancer Maternal Aunt Ovarian cancer Breast cancer Brother Colon cancer Family history of problems with anesthesia: No Surgical History Surgical History History of esophagogastroduodenoscopy (EGD) History of colonoscopy History of total abdominal hysterectomy and bilateral salpingo-oophorectomy H/O cervical biopsy History of appendectomy History of Problems with Anesthesia: No Social History Social History Household Members: None Housing: Care Home Do you presently have visiting nurse or other home services: No Alcohol intake: unknown Patient Tobacco Use Status: Former Tobacco user Tobacco use type: Cigarette e-Cigarette/Vaping Use: Never Used Second Hand Smoke Exposure: No Use of substances other than those prescribed or required for medical reasons: No Are you DNR?: No Advance Directives: No Advance Directives Information Provided: Yes Advance Directives Date on File: 12/22/20 service: No Current occupational status: retired Cognitive needs: No Hearing needs: No Vision needs: No Meds Allergies Allergy/AdvReac Type Severity Reaction Status Date / Time No Known Allergies Allergy Verified 07/01/23 08:41 Home Medications ?Medication ?Instructions ?Recorded ?Confirmed ?Last Taken ?Type albuterol sulfate 90 mcg/actuation 2 puff inhalation Q4H PRN Wheezing 01/31/20 06/01/22 12/19/20 History aerosol inhaler docusate sodium 100 mg capsule 100 mg PO BID PRN Constipation 01/31/20 06/01/22 12/19/20 History insulin aspart U-100 100 unit/mL See Protocol subcut TID 01/31/20 06/01/22 Unknown History (3 mL) subcutaneous pen lancets 33 gauge #100 ea 01/31/20 04/29/22 Unknown History insulin glargine 100 unit/mL (3 25 unit subcut BEDTIME 09/15/20 07/01/23 06/30/23 History mL) subcutaneous pen (Lantus Solostar U-100 Insulin) acetaminophen 325 mg tablet 650 mg PO Q6H PRN Fever Or Pain 06/01/22 06/01/22 Unknown History atorvastatin 20 mg tablet 20 mg PO BEDTIME 06/01/22 07/01/23 06/30/23 History calcium carbonate 600 mg-vitamin 1 tab PO BID 06/01/22 07/01/23 06/30/23 History D3 10 mcg (400 unit) tablet (Calcium 600 + D(3)) clonazepam 0.5 mg tablet 0.5 mg PO BEDTIME 06/01/22 06/01/22 Unknown History escitalopram oxalate 5 mg tablet 5 mg PO DAILY 06/01/22 07/01/23 06/30/23 History (Lexapro) furosemide 40 mg tablet 40 mg PO DAILY 06/01/22 07/01/23 06/30/23 History gabapentin 800 mg tablet 800 mg PO Q6H 06/01/22 06/01/22 Unknown History hydrocortisone-pramoxine 2.5 %-1 % 1 appl GA BID 06/01/22 06/01/22 Unknown History rectal cream (Analpram-HC) metoclopramide HCl 5 mg tablet 5 mg PO TID 06/01/22 07/01/23 06/30/23 History polyethylene glycol 3350 17 gram 17 g PO BID PRN Constipation 06/01/22 06/01/22 Unknown History oral powder packet psyllium husk 3.4 gram/5.4 gram 1 tsp PO DAILY 06/01/22 06/01/22 Unknown History oral powder (Tiffanie-Mucil) tramadol 50 mg tablet 50 mg PO Q8H PRN MODERATE TO 06/01/22 06/01/22 Unknown History SEVERE PAIN dulaglutide 0.75 mg/0.5 mL mg subcut 07/01/23 06/14/23 History subcutaneous pen injector (Trulicity) Exam Pertinent Lab Results Pertinent Lab Results: Laboratory Tests 05/23/23 05:03 WBC 4.1 L Hgb 10.4 L Hct 31.3 L Plt Count 106 L Sodium 139 Potassium 4.1 Chloride 104 Carbon Dioxide 28 BUN 28 H Creatinine 1.15 Hemoglobin A1c % 6.8 H Total Bilirubin 0.4 AST 18 ALT 16 Alkaline Phosphatase 59 Total Protein 5.6 L Albumin 3.0 L Narrative Narrative: CT abdomen pelvis wo IV con 05/2022 IMPRESSION: 1. Hepatomegaly with lobulated contour consistent with cirrhosis. There is no ascites. 2. There is portal hypertension with collateral vessels in the anterior abdominal wall. 3. Left umbilical and left inguinal hernia containing fat. 4. Simple cyst lower pole right kidney. 5. No acute intra-abdominal process seen. Assessment and Plan Assessment Anesthesia Assessment: Chart Reviewed Final Anesthetic Review Family History of Problems with Anesthesia: No History of Problems with Anesthesia: No Documented by User: Andrea Eagle MD 07/01/23 08:57 PMFSH Past Medical History Medical History Hx of flexible sigmoidoscopy CKD (chronic kidney disease), stage IV Chronic alcoholic liver disease Numbness HTN (hypertension) HLD (hyperlipidemia) T2DM (type 2 diabetes mellitus) Lumbar radiculopathy Hair loss Hearing loss Umbilical hernia Hypovitaminosis D Constipation by delayed colonic transit Pure hypercholesterolemia Depression with anxiety Gout Moderate asthma Essential hypertension Diabetes mellitus Lumbar degenerative disc disease Neuropathy Family History Family History Father Renal failure Mother Fatty liver Ovarian cancer Maternal Aunt Ovarian cancer Breast cancer Brother Colon cancer Surgical History Surgical History History of esophagogastroduodenoscopy (EGD) History of colonoscopy History of total abdominal hysterectomy and bilateral salpingo-oophorectomy H/O cervical biopsy History of appendectomy Social History Social History Household Members: None Housing: Care Home Do you presently have visiting nurse or other home services: No Alcohol intake: unknown Patient Tobacco Use Status: Former Tobacco user Tobacco use type: Cigarette e-Cigarette/Vaping Use: Never Used Second Hand Smoke Exposure: No Use of substances other than those prescribed or required for medical reasons: No Are you DNR?: No Advance Directives: No Advance Directives Information Provided: Yes Advance Directives Date on File: 12/22/20 service: No Current occupational status: retired Cognitive needs: No Hearing needs: No Vision needs: No Meds Allergies Allergy/AdvReac Type Severity Reaction Status Date / Time No Known Allergies Allergy Verified 07/01/23 08:41 Home Medications ?Medication ?Instructions ?Recorded ?Confirmed ?Last Taken ?Type albuterol sulfate 90 mcg/actuation 2 puff inhalation Q4H PRN Wheezing 01/31/20 06/01/22 12/19/20 History aerosol inhaler docusate sodium 100 mg capsule 100 mg PO BID PRN Constipation 01/31/20 06/01/22 12/19/20 History insulin aspart U-100 100 unit/mL See Protocol subcut TID 01/31/20 06/01/22 Unknown History (3 mL) subcutaneous pen lancets 33 gauge #100 ea 01/31/20 04/29/22 Unknown History insulin glargine 100 unit/mL (3 25 unit subcut BEDTIME 09/15/20 07/01/23 06/30/23 History mL) subcutaneous pen (Lantus Solostar U-100 Insulin) acetaminophen 325 mg tablet 650 mg PO Q6H PRN Fever Or Pain 06/01/22 06/01/22 Unknown History atorvastatin 20 mg tablet 20 mg PO BEDTIME 06/01/22 07/01/23 06/30/23 History calcium carbonate 600 mg-vitamin 1 tab PO BID 06/01/22 07/01/23 06/30/23 History D3 10 mcg (400 unit) tablet (Calcium 600 + D(3)) clonazepam 0.5 mg tablet 0.5 mg PO BEDTIME 06/01/22 06/01/22 Unknown History escitalopram oxalate 5 mg tablet 5 mg PO DAILY 06/01/22 07/01/23 06/30/23 History (Lexapro) furosemide 40 mg tablet 40 mg PO DAILY 06/01/22 07/01/23 06/30/23 History gabapentin 800 mg tablet 800 mg PO Q6H 06/01/22 06/01/22 Unknown History hydrocortisone-pramoxine 2.5 %-1 % 1 appl GA BID 06/01/22 06/01/22 Unknown History rectal cream (Analpram-HC) metoclopramide HCl 5 mg tablet 5 mg PO TID 06/01/22 07/01/23 06/30/23 History polyethylene glycol 3350 17 gram 17 g PO BID PRN Constipation 06/01/22 06/01/22 Unknown History oral powder packet psyllium husk 3.4 gram/5.4 gram 1 tsp PO DAILY 06/01/22 06/01/22 Unknown History oral powder (Tiffanie-Mucil) tramadol 50 mg tablet 50 mg PO Q8H PRN MODERATE TO 06/01/22 06/01/22 Unknown History SEVERE PAIN dulaglutide 0.75 mg/0.5 mL mg subcut 07/01/23 06/14/23 History subcutaneous pen injector (Trulicity) Exam Airway Mallampati Class: III TM Dist: <=3cm Neck ROM: Full Denture: Upper and Lower Heart: rrr Lungs: cta Assessment and Plan Assessment Anesthesia Assessment: Anesthesia Plan Discussed Final Anesthetic Review NPO: Yes ASA Class: III Final Preanesthetic Review: No Changes in Pt Med Stat, Meds/Allgs Chart Reviewed, Consent Obtained/Reviewed and Anes Risks/Benef Reviewed Patient Risk: Intermediate Procedure Risk: Intermediate Anesthetic Plan Anesthetic Plan: GA Disposition: Standard PACU
[2023-07-01] VITALS (7 sets, daily range): BP systolic 111–182; BP diastolic 50–67; PULSE 52–72; RESP 14–16; TEMP 36.1–36.6; O2SAT 95–100; BMI 32.7
--- NOTE | 2023-07-01 07:44 | ECG_ITS ---
Test Reason : dm ckd htn Blood Pressure : / mmHG Vent. Rate : 050 BPM Atrial Rate : 050 BPM P-R Int : 190 ms QRS Dur : 106 ms QT Int : 486 ms P-R-T Axes : 035 048 066 degrees QTc Int : 443 ms Sinus bradycardia Otherwise normal ECG When compared with ECG of 01-JUN-2022 14:37, Vent. rate has decreased BY 38 BPM Criteria for Septal infarct are no longer Present Referred By: Vanessa Mckeon Electronically Signed By:Fredy Arndt
[2023-07-01] MEDS: Lactated Ringers 1,000 ML 100 ML IVCONT (07:48)
[2023-07-01 08:59] LABS: Glucose, Whole Blood 137 mg/dL (60-115)
--- NOTE | 2023-07-01 10:25 | P.OP_ITS ---
Operative Note Operative Note Date of Service: 07/01/23 Narrative: Preoperative diagnosis: [] 1. Incarcerated left inguinal hernia 2. Incarcerated umbilical hernia Postop diagnosis: [] The same Procedure [] 1. Open inguinal herniorrhaphy with Bard mesh 2. Open umbilical herniorrhaphy with Bard mesh Surgeon: [] Fredy Cut Off Saw Operator Metal: [] Anita Type of Anesthesia: [] General Indication for surgery: [] 1. Incarcerated indirect left umbilical hernia with fatty contents and hernia sac which were reduced. 2. Incarcerated umbilical hernia proximally 2 cm in size with omental contents which were partially amputated and reduced. Findings: [] Patient brought to the operating room, placed on operative table supine position, after an adequate level of general anesthesia was induced, the patient's abdomen and left groin were prepped and draped in usual sterile fashion. Commencing with the left groin, a small left para inguinal incision was made and carried down through skin, subcutaneous tissue, Suzanne's fascia. External oblique fibers were opened their direction with care to isolate and preserve the ilioinguinal nerve throughout the procedure. Exploration of the cord demonstrated a large protruding incarcerated indirect hernia. No direct hernia was demonstrated. The indirect hernia was dissected free from the surrounding soft tissues and reduced. A Bard plug was placed in the indirect defect, and sutured inferiorly to the inguinal ligament, and superiorly to the transversalis fascia using interrupted 0 Ethibond suture. The mesh also covered inguinal floor. Wound was irrigated, secured hemostasis, and closed in the following manner; external oblique fascia was closed using running 2-0 Vicryl suture. Suzanne's fascia was reapproximated using interrupted 3-0 Vicryl sutures. Interrupted inverted deep dermal 3-0 Vicryl sutures followed by running subcuticular 4-0 Vicryl sutures were placed. Next umbilical hernia was approached using a supraumbilical curvilinear incision which was carried down through skin, subcutaneous tissue, were large hernia sac with incarcerated omental contents was encountered. This was dissected off the posterior aspect of the umbilicus and circumferentially dissected down to fascia. Sac was opened where incarcerated omental contents were amputated using clamped clamp, cut, tied with 2-0 Vicryl and sac and omentum sent to pathology. Fascia margins were circumferentially cleared. A Bard mesh was placed in this defect, and the superficial layer of the mesh was circumferentially sutured to the surrounding fascia using interrupted 0 Ethibond suture. At completion of procedure, mesh was in good position with no gaps or tension. Wound was irrigated, secured hemostasis, the closed in the following manner; interrupted inverted dermal 3-0 Vicryl sutures followed by Steri-Strips and sterile dressings were applied. Sponge, needle, and instrument counts reported correct. Patient tolerated the procedure well and emerged from anesthesia stable condition. Each wound was infiltrated 0.5% Marcaine at completion.
[2023-07-01 11:16] LABS: Glucose, Whole Blood 152 mg/dL (60-115)
== END 2023-07-01 12:00 | disposition home or self-care (01) ==
PROVIDERS: PCP Family Medicine; Visit Provider Surgery
PROC: (CPT 49507; principal; 2023-07-01 08:30)
PROC: (CPT 49507; 2023-07-01 08:30)
DX: K40.30 Unilateral inguinal hernia, with obstruction, without gangrene, not specified as recurrent (principal); K42.0 Umbilical hernia with obstruction, without gangrene; K70.9 Alcoholic liver disease, unspecified; E11.22 Type 2 diabetes mellitus with diabetic chronic kidney disease; I12.9 Hypertensive chronic kidney disease with stage 1 through stage 4 chronic kidney disease, or unspecified chronic kidney disease; N18.4 Chronic kidney disease, stage 4 (severe); E78.5 Hyperlipidemia, unspecified; J45.909 Unspecified asthma, uncomplicated; F32.A Depression, unspecified; F41.9 Anxiety disorder, unspecified; Z79.4 Long term (current) use of insulin; Z79.85 Long-term (current) use of injectable non-insulin antidiabetic drugs; Z79.899 Other long term (current) drug therapy; Z98.890 Other specified postprocedural states; Z87.891 Personal history of nicotine dependence
CPT/HCPCS: 49507; 49592; 82947; 88302; 93005; C1781; J0690; J2371; J2704; J2795; J3010

== ENCOUNTER → 2023-07-01 06:58 | Outpatient (BNV) | payer MEDICARE, MEDICAID, SELFPAY | PROVIDERS: PCP Family Medicine; Visit Provider Surgery | DX: K40.90 Unilateral inguinal hernia, without obstruction or gangrene, not specified as recurrent (principal); K42.0 Umbilical hernia with obstruction, without gangrene | CPT/HCPCS: 49507; 49592 ==

== ENCOUNTER → 2023-07-01 07:44 | Outpatient (BNV) | payer MEDICARE, MEDICAID, SELFPAY | PROVIDERS: PCP Family Medicine; Visit Provider Internal Medicine Cardiovascular Disease | DX: R00.1 Bradycardia, unspecified (principal); I12.9 Hypertensive chronic kidney disease with stage 1 through stage 4 chronic kidney disease, or unspecified chronic kidney disease; E11.22 Type 2 diabetes mellitus with diabetic chronic kidney disease; N18.9 Chronic kidney disease, unspecified | CPT/HCPCS: 93010 ==

== ENCOUNTER 2023-07-06 05:47 | Outpatient (REF) | payer MEDICARE, MEDICAID, SELFPAY ==
[2023-07-06 05:49] LABS: MANUAL DIFF FLAG NO
[2023-07-06 06:27] LABS: Basophils Percent Auto 0.6 % (0-2); Eosinophils Absolute Auto 0.4 X10*3/uL (0.0-0.4); Eosinophils Percent Auto 8.3 % (0-4); Hemoglobin 9.4 g/dl (12.0-16.0); Imm Gran Abs Auto 0.01 X10*3/uL (0.00-0.03); Imm Gran Pct Auto 0.2 % (0.0-0.4); Lymphocytes Absolute Auto 1.3 X10*3/uL (1.2-4.9); Lymphocytes Percent Auto 25.6 % (20-40); Mean Corpuscular HGB Conc 32.4 g/dl (31.0-35.0); Mean Corpuscular Hemoglobin 30.1 pg (27.0-33.0); Mean Corpuscular Volume 92.9 fL (80.0-98.0); Mean Platelet Volume 9.2 fL (9.4-12.3); Monocytes Absolute Auto 0.5 X10*3/uL (0.1-1.2); Monocytes Percent Auto 9.9 % (2-11); Neutrophils Absolute Auto 2.8 x10*3/uL (2.0-8.3); Neutrophils Percent Auto 55.4 % (45-73); Platelet Count 123 X10*3/uL (160-400); Red Blood Count 3.12 X10*6/uL (4.20-5.50); Red Cell Distribution Width 13.2 % (11.0-16.0)
[2023-07-06 06:38] LABS: Anion Gap 14 (12-20); Blood Urea Nitrogen 38 mg/dL (9-16); Calcium 8.8 mg/dL (8.4-10.2); Carbon Dioxide 27 mmol/L (22-29); Chloride 101 mmol/L (96-108); Estimated Glomerular Filt Rate 31; Glucose Random 157 mg/dL (60-115); Potassium 4.3 mmol/L (3.3-5.1); Sodium 138 mmol/L (135-145)
== END 2023-07-06 05:48 | disposition home or self-care (01) ==
LOC: HO.MMNH3L 05:47
PROVIDERS: Visit Provider Family Medicine
DX: N18.31 Chronic kidney disease, stage 3a (principal); M15.0 Primary generalized (osteo)arthritis; M51.36 Other intervertebral disc degeneration, lumbar region
CPT/HCPCS: 36415; 80048; 85025

== ENCOUNTER 2023-07-11 13:20 | Outpatient (AMB) | payer MEDICARE, MEDICAID, SELFPAY ==
--- NOTE | 2023-07-11 13:32 | MHC.OFFVIS ---
Intake Visit Reasons: S/P umbilical hernia & LIH w/mesh Intake Note: Patient here s/p 1. incarcerated LIH 2. incarcerated umbilical hernia. Reports incisions healing well. Patient c/o: soreness on Rt lower abd. Steri strips still there. Still taking rx pain meds. SX: 07-01-23. 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 Patient has minimal incisional discomfort. She is tolerating her diet. She is occasionally constipated but having relatively regular bowel habits. [facility] Medical History Hx of flexible sigmoidoscopy CKD (chronic kidney disease), stage IV Chronic alcoholic liver disease Numbness HTN (hypertension) HLD (hyperlipidemia) T2DM (type 2 diabetes mellitus) Lumbar radiculopathy Hair loss Hearing loss Umbilical hernia Hypovitaminosis D Constipation by delayed colonic transit Pure hypercholesterolemia Depression with anxiety Gout Moderate asthma Essential hypertension Diabetes mellitus Lumbar degenerative disc disease Neuropathy Surgical History Umbilical hernia, incarcerated (07/01/23) Left inguinal hernia (07/01/23) History of esophagogastroduodenoscopy (EGD) History of colonoscopy History of total abdominal hysterectomy and bilateral salpingo-oophorectomy H/O cervical biopsy History of appendectomy Family History Father Renal failure Mother Fatty liver Ovarian cancer Maternal Aunt Ovarian cancer Breast cancer Brother Colon cancer Social History Household Members: None Housing: Longterm Do you presently have visiting nurse or other home services: No Alcohol intake: unknown Patient Tobacco Use Status: Former Tobacco user Tobacco use type: Cigarette e-Cigarette/Vaping Use: Never Used Second Hand Smoke Exposure: No Advance Directives Date on File: 12/22/20 service: No Current occupational status: retired Cognitive needs: No Hearing needs: No Vision needs: No Physical Exam GI Other: Umbilical and inguinal wounds healing very well clean dry and intact Quality Reporting (2019) Adult ([facility] 138/04/14/68) Smoking risk assessment performed?: Yes Patient Tobacco Use Status: Former Tobacco user Assessment & Plan Assessment & Plan (1) Postop check: Code(s): Z09 - Encounter for follow-up examination after completed treatment for conditions other than malignant neoplasm Category: Surgical Plan Patient and her facility have been given local instructions, and the patient otherwise follow-up p.r.n.. All questions answered. Coding Level of Care Code Global (40185) Diagnoses Postop check Z09
== END 2023-07-11 13:40 | disposition home or self-care (01) ==
PROVIDERS: PCP Family Medicine; Visit Provider Surgery
DX: Z09 Encounter for follow-up examination after completed treatment for conditions other than malignant neoplasm (principal)
CPT/HCPCS: 99024

== ENCOUNTER → 2023-07-11 13:20 | Outpatient (BNVA) | payer MEDICARE, MEDICAID, SELFPAY | PROVIDERS: PCP Family Medicine; Visit Provider Surgery | DX: Z09 Encounter for follow-up examination after completed treatment for conditions other than malignant neoplasm (principal); Z87.19 Personal history of other diseases of the digestive system | CPT/HCPCS: 99212 ==

== ENCOUNTER 2023-07-14 05:47 | Outpatient (REF) | payer MEDICARE, MEDICAID, SELFPAY ==
[2023-07-14 05:50] LABS: MANUAL DIFF FLAG NO
[2023-07-14 06:32] LABS: Basophils Absolute Auto 0.1 X10*3/uL (0.0-0.2); Basophils Percent Auto 0.9 % (0-2); Eosinophils Absolute Auto 0.3 X10*3/uL (0.0-0.4); Eosinophils Percent Auto 5.9 % (0-4); Hematocrit 28.8 % (37.0-47.0); Hemoglobin 9.6 g/dl (12.0-16.0); Imm Gran Abs Auto 0.01 X10*3/uL (0.00-0.03); Imm Gran Pct Auto 0.2 % (0.0-0.4); Lymphocytes Absolute Auto 1.2 X10*3/uL (1.2-4.9); Lymphocytes Percent Auto 21.2 % (20-40); Mean Corpuscular HGB Conc 33.3 g/dl (31.0-35.0); Mean Corpuscular Hemoglobin 30.6 pg (27.0-33.0); Mean Corpuscular Volume 91.7 fL (80.0-98.0); Mean Platelet Volume 9.1 fL (9.4-12.3); Monocytes Absolute Auto 0.4 X10*3/uL (0.1-1.2); Monocytes Percent Auto 7.7 % (2-11); Neutrophils Absolute Auto 3.6 x10*3/uL (2.0-8.3); Neutrophils Percent Auto 64.1 % (45-73); Platelet Count 121 X10*3/uL (160-400); Red Blood Count 3.14 X10*6/uL (4.20-5.50); Red Cell Distribution Width 13.2 % (11.0-16.0); White Blood Count 5.6 X10*3/uL (4.8-10.8)
[2023-07-14 06:41] LABS: Anion Gap 13 (12-20); Blood Urea Nitrogen 32 mg/dL (9-16); Calcium 8.8 mg/dL (8.4-10.2); Carbon Dioxide 26 mmol/L (22-29); Chloride 103 mmol/L (96-108); Estimated Glomerular Filt Rate 43; Glucose Random 214 mg/dL (60-115); Potassium 4.4 mmol/L (3.3-5.1); Sodium 138 mmol/L (135-145)
[2023-07-14 06:52] LABS: Estimated Average Glucose 177 mg/dL; Hemoglobin A1c % 7.8 % (<6.0)
== END 2023-07-14 05:48 | disposition home or self-care (01) ==
LOC: HO.MMNH3L 05:47
PROVIDERS: Visit Provider Family Medicine
DX: I10 Essential (primary) hypertension (principal)
CPT/HCPCS: 36415; 80048; 83036; 85025

== ENCOUNTER → 2023-11-01 10:29 | Outpatient (RCR) | payer MEDICARE, SELFPAY ==
[2020-04-22 10:19] VITALS: BP 178/76; PULSE 70; RESP 12; TEMP 36.6; O2SAT 97; BMI 37.8
--- NOTE | 2020-04-22 10:42 | P.PNHO_ITS ---
Medical Summary - Medical Summary Date of Service: 04/22/20 Chief complaint: FOLLOW-UP FOR: PANCYTOPENIA. Medical Summary: DIAGNOSIS: PANCYTOPENIA. Interval History Interval history: This is a pleasant 74 Year-old lady, here for a follow-up visit. She has been feeling reasonably well. Sometimes she gets dizzy now and then. She gets pain in her neck and back at times. Sometimes she uses a hot shower to relieve the pain. She denies easy fatigability. She denies fever nor chills. No headache no dizziness. No chest pain or trouble breathing. She denies abdominal pain nausea vomiting heartburn indigestion. Bowels are working without any gross blood in it. She enjoys a good appetite. She has gained weight. She is in good spirits. Rest of the review of systems is unremarkable. She has been mostly home however she does go to the [employer] or store, once in a while. Previous history: She did develop cellulitis in her leg. She is on antibiotics. Sometimes, her legs get sore to touch. Review of Systems - Constitutional Reports system reviewed and no additional complaints, except as documented - Eyes Reports system reviewed and no additional complaints, except as documented - ENT Reports system reviewed and no additional complaints, except as documented - Cardiovascular Reports system reviewed and no additional complaints, except as documented - Respiratory Reports no additional respiratory complaints - Gastrointestinal Reports system reviewed and no additional complaints, except as documented - Genitourinary Reports no additional female genitourinary complaints - Musculoskeletal Reports system reviewed and no additional complaints, except as documented - Integumentary/Breasts Skin/Breast: Reports no additional skin complaints - Neurologic Reports system reviewed and no additional complaints, except as documented - Psychiatric Reports system reviewed and no additional complaints, except as documented - Endocrine Reports no additional endocrine complaints - Hematologic/Lymphatic Reports system reviewed and no additional complaints, except as documented - Allergic/Immunologic Reports system reviewed and no additional complaints, except as documented PMFSH Medical History: Medical History (Last Updated 03/20/20 @ 15:29 by Rossi Rashid MD) Constipation by delayed colonic transit Depression with anxiety Diabetes mellitus Essential hypertension Gout Hearing loss Hypovitaminosis D Lumbar degenerative disc disease Moderate asthma Neuropathy Pure hypercholesterolemia Umbilical hernia Functional capacity: independent ambulation Patient : No Family History: Family History (Last Updated 01/25/20 @ 11:42 by Leilani Bullock Jese) Father Renal failure Mother Fatty liver Ovarian cancer Maternal Aunt Ovarian cancer Breast cancer Brother Colon cancer Surgical History: Surgical History (Last Updated 01/25/20 @ 11:41 by NIKHIL Dominguez) H/O cervical biopsy History of appendectomy History of colonoscopy History of total abdominal hysterectomy and bilateral salpingo-oophorectomy Social History: Social History (Last Updated 04/22/20 @ 10:34 by Otilia Daley) Alcohol History: Alcohol intake: former Alcohol History Details: Alcohol intake frequency: does not drink Tobacco History: Smoking Status: Former smoker Tobacco Type: Cigarette Substance Use History: Use of substances other than those prescribed or required for medical reasons : No Nutrition Assessment: Patient : No Smoking status: Former smoker Oncology Screenings - ECOG Performance Status ECOG Performance Status: 0 Home Medications and Allergies Home Medications Medication Instructions Recorded Confirmed Type albuterol sulfate mg INHALATION 01/31/20 01/31/20 History albuterol sulfate 90 mcg/actuation 2 puff INHALATION Q4H PRN 01/31/20 04/22/20 History aerosol inhaler alcohol swabs pad TOPICAL TID 01/31/20 01/31/20 History allopurinol 300 mg tablet 300 mg PO DAILY 01/31/20 04/22/20 History atorvastatin 20 mg tablet 20 mg PO DAILY 01/31/20 04/22/20 History blood sugar diagnostic #10 ea 01/31/20 04/22/20 History calcium carbonate 600 mg (1,500 1 tab PO BID 01/31/20 04/22/20 History mg)-vitamin D3 400 unit tablet docusate sodium 100 mg capsule 100 mg PO BID PRN 01/31/20 04/22/20 History gabapentin 800 mg tablet 800 mg PO DAILY 01/31/20 04/22/20 History insulin aspart U-100 100 unit/mL 3 - 9 unit SUBCUT TID 01/31/20 04/22/20 History (3 mL) subcutaneous pen insulin glargine 100 unit/mL (3 24 unit SUBCUT BEDTIME ml 01/31/20 04/22/20 History mL) subcutaneous pen lancets 33 gauge #100 ea 01/31/20 04/22/20 History liraglutide 0.6 mg/0.1 mL (18 mg/3 0.6 mg SUBCUT 01/31/20 01/31/20 History mL) subcutaneous pen injector losartan 50 mg tablet 50 mg PO DAILY 01/31/20 04/22/20 History metformin 1,000 mg tablet 1,000 mg PO BID 01/31/20 04/22/20 History montelukast 10 mg tablet 10 mg PO BEDTIME 01/31/20 04/22/20 History pen needle, diabetic 32 gauge x #50 ea 01/31/20 04/22/20 History Allergies Allergy/AdvReac Type Severity Reaction Status Date / Time No Known Allergies Allergy Verified 04/22/20 10:54 Exam Vital signs: Vital Signs Temp 98 F 04/22/20 10:19 Pulse 70 04/22/20 10:19 Resp 12 04/22/20 10:19 BP 178/76 H 04/22/20 10:19 Pulse Ox 97 04/22/20 10:19 Intake & Output 04/21/20 04/22/20 04/22/20 18:59 06:59 18:59 Other: Weight 96.7 kg [place] Weight in Grams [id number] Weight 96.7 kg Body Mass Index 37.8 - Constitutional Present: no acute distress - Routine HEENT Exam Head: Present: normal inspection Eye: Present: normal appearance ENT: Present: mucous membranes moist - Routine Neck Exam Present: full ROM - Routine Respiratory Exam Present: CTAB - Routine Cardiovascular Exam Cardiovascular: Present: RRR, S1, S2 - Routine Abdominal Exam Present: soft, nontender - Routine Rectal Exam Patient deferred: digital exam - Routine Extremities Exam Present: nontender - Routine Back/Spine/Pelvis Exam Back/Spine: Present: full ROM - Routine Skin Exam Present: intact - Routine Neurological Exam Present: alert, oriented X3 - Routine Psychiatric Exam Present: normal affect Data - Labs CBC & Chem 7: 04/22/20 11:03 04/22/20 11:03 Progress Note: A/P (1) Pancytopenia Status: Acute Assessment and plan: This is a pleasant 74 year-old lady, who has had a history of Chronic Pancytopenia. It could be on the basis of Liver Cirrhosis and Hypersplenism. She does have a history of alcoholism. ULTRASOUND OF THE ABDOMEN FROM SEPTEMBER 2017, revealed: There is generalized increase in hepatic echotexture, consistent with fatty infiltration or hepatocellular disease. Please correlate clinically. No focal hepatic mass or intrahepatic biliary dilatation is seen. DIFFERENTIAL DIAGNOSIS: 2. Related to medications: 3. Infection related: Hepatitis bcr HIV. 4. Collagen vascular disorder: Rheumatoid arthritis versus lupus. 5. Underlying myelo infiltrative disorder: Multiple myeloma versus myelodysplastic syndrome. 6. B12 or folate deficiency. l proceeded with further evaluation. I checked, hepatitis ABC profile & HIV: These were normal. Check collagen vascular profile: ESR 29. RA <15, ROSSI:Negative. Checked SIEP: No monoclonal band. B12: 638, folate level: >20. She is clinically doing well. Her Blood counts are holding, stable, actually improved. Her white count is normal. Platelets have improved. However hemoglobin had declined. I proceeded with anemia workup. B12 folate are fine. Ferritin is low. She had a colonoscopy August of last year by Dr. Coppola, this revealed: There was postsurgical change at the anorectal verge with some erosive inflammatory changes as well as an area that could easily have previously bled. Local treatment with Calmoseptine wipes and suppositories if necessary. Consider bulking agent at least temporarily for the next 4 to 6 weeks. PLAN: She was advised to take some oral iron, with vitamin-C. I discussed iron-containing foods. I will follow her blood count over time. If the count continues to decline, will proceed with a bone marrow exam for further evaluation. She will return in 6 months for a follow-up. Thank you, CC: Rossi Rashid. Abdon. - Time Spent With Patient Total time spent is greater than 50% in coordination of care (as documented) at patient's floor/unit and/or counseling patient: 25 - 35 minutes
[2020-04-22 11:28] LABS: MANUAL DIFF FLAG NO
--- NOTE | 2020-04-22 11:28 | MHC.HEMONCMA ---
Patient present to f/u on bycytopenia. History reviewed, labs draw and 6 month follow up scheduled.
[2020-04-22 11:37] LABS: Basophils Absolute Auto 0.1 X10*3/uL (0.0-0.2); Basophils Percent Auto 0.9 % (0-2); Eosinophils Absolute Auto 0.4 X10*3/uL (0.0-0.4); Hematocrit 35.5 % (37-47); Hemoglobin 11.4 g/dl (12.0-16.0); Imm Gran Abs Auto 0.01 X10*3/uL (0.00-0.03); Imm Gran Pct Auto 0.2 % (0.0-0.4); Lymphocytes Absolute Auto 1.7 X10*3/uL (1.2-4.9); Lymphocytes Percent Auto 30.9 % (20-40); Mean Corpuscular HGB Conc 32.1 g/dl (31.0-35.0); Mean Corpuscular Hemoglobin 29.6 pg (27.0-33.0); Mean Corpuscular Volume 92.2 fL (80-98); Mean Platelet Volume 10.7 fL (9.4-12.3); Monocytes Absolute Auto 0.5 X10*3/uL (0.1-1.2); Monocytes Percent Auto 9.4 % (2-11); Neutrophils Absolute Auto 2.8 X10*3/uL (2.0-8.3); Neutrophils Percent Auto 51.6 % (45-73); Platelet Count 131 X10*3/uL (160-400); Red Blood Count 3.85 X10*6/uL (4.20-5.50); White Blood Count 5.4 X10*3/uL (4.8-10.8)
[2020-04-22 12:06] LABS: Alanine Aminotransferase 22 U/L (0-31); Alkaline Phosphatase 79 U/L (39-117); Anion Gap 13 (12-20); Aspartate Amino Transferase 23 U/L (5-31); Bilirubin Total 0.7 mg/dL (0.0-1.0); Blood Urea Nitrogen 29 mg/dL (9-16); Calcium 9.1 mg/dL (8.4-10.2); Carbon Dioxide 28 mmol/L (22-29); Chloride 102 mmol/L (96-108); Creatinine Clr Calc Pharmacy 41.7; Estimated Glomerular Filt Rate 40; Glucose Random 117 mg/dL (60-115); Potassium 4.7 mmol/L (3.3-5.1); Sodium 138 mmol/L (135-145); Total Protein 6.9 g/dL (6.5-8.0)
[2020-04-22 12:22] LABS: Ferritin 13 ng/mL (10-250)
[2020-04-22 13:10] LABS: Iron 75 mcg/dL (30-160); Percent Iron Saturation 19 % (15-50); Total Iron Binding Capacity 394 mcg/dL (228-428); Unsaturated Iron Binding 319 ug/dL
[2020-04-22 13:41] LABS: Vitamin B12 356 pg/mL (200-900)
[2020-10-30 10:36] VITALS: BP 138/64; PULSE 95; RESP 16; TEMP 36.2; O2SAT 95; BMI 33.3
[2020-10-30 10:38] LABS: MANUAL DIFF FLAG NO
[2020-10-30 10:40] LABS: Basophils Percent Auto 0.6 % (0-2); Eosinophils Absolute Auto 0.2 X10*3/uL (0.0-0.4); Eosinophils Percent Auto 3.3 % (0-4); Hematocrit 36.9 % (37-47); Hemoglobin 11.5 g/dl (12.0-16.0); Imm Gran Abs Auto 0.02 X10*3/uL (0.00-0.03); Imm Gran Pct Auto 0.3 % (0.0-0.4); Lymphocytes Absolute Auto 0.9 X10*3/uL (1.2-4.9); Lymphocytes Percent Auto 12.6 % (20-40); Mean Corpuscular HGB Conc 31.2 g/dl (31.0-35.0); Mean Corpuscular Hemoglobin 27.3 pg (27.0-33.0); Mean Corpuscular Volume 87.4 fL (80-98); Mean Platelet Volume 8.6 fL (9.4-12.3); Monocytes Absolute Auto 0.5 X10*3/uL (0.1-1.2); Monocytes Percent Auto 7.5 % (2-11); Neutrophils Absolute Auto 5.5 X10*3/uL (2.0-8.3); Neutrophils Percent Auto 75.7 % (45-73); Platelet Count 149 X10*3/uL (160-400); Red Blood Count 4.22 X10*6/uL (4.20-5.50); Red Cell Distribution Width 19.4 % (11.0-16.0); White Blood Count 7.2 X10*3/uL (4.8-10.8)
--- NOTE | 2020-10-30 10:48 | PM.HEMONCPN ---
Medical Summary - Medical Summary Date of Service: 10/30/20 Chief complaint: Follow-up for: Medical Summary: DIAGNOSIS: PANCYTOPENIA. Interval History Interval history: This is a pleasant 75 Year-old lady, here for a follow-up visit. She has not been feeling too well. She tells me that about 5 weeks ago she went to bed fine but when she woke up she had numbness in her fingers and feet. Since then she has been dropping coffee cup or other utensils and water bottles, from her hands. Recently she moved from her to bedroom apartment to 1 bedroom at [employer]. It has been rather hectic/drama. Her [employer] has been helping her unpacked. The other day she lost her balance and fell. She was on the floor for 3 hours. Since then she has a neck pain. She is going to be seen by Dr. Anderson. She gets dizzy now and then. She gets pain in her neck and back at times. She does feel rather fatigued. She denies fever nor chills. No headaches. No chest pain or trouble breathing. She denies abdominal pain nausea vomiting heartburn indigestion. Bowels are working without any gross blood in it. She enjoys a good appetite. She has gained weight. Her spirits are down. Rest of the review of systems is unremarkable. She has been mostly home however she does go to the [employer] or store, once in a while. Previous history: She did develop cellulitis in her leg. She is on antibiotics. Sometimes, her legs get sore to touch. Review of Systems - Constitutional Reports no additional constitutional complaints, Reports fatigue, Denies fever(s), Reports lack of energy - Eyes Reports no additional eye complaints - ENT Reports no additional ear, nose, mouth, and throat complaints - Cardiovascular Reports no additional cardiovascular complaints - Respiratory Reports no additional respiratory complaints - Gastrointestinal Reports no additional gastrointestinal complaints - Genitourinary Reports no additional female genitourinary complaints - Musculoskeletal Reports no additional musculoskeletal complaints Comments: Neck pain. - Integumentary/Breasts Skin/Breast: Reports no additional skin complaints - Neurologic Reports no additional neurologic complaints - Psychiatric Reports no additional psychiatric complaints - Endocrine Reports no additional endocrine complaints - Hematologic/Lymphatic Reports no additional hematologic/lymphatic complaints - Allergic/Immunologic Reports no additional allergic/immunologic complaints [facility] Medical History: Medical History (Last Reviewed 10/30/20 @ 10:37 by Otilio Gonzalez) Chronic alcoholic liver disease Constipation by delayed colonic transit Depression with anxiety Diabetes mellitus Essential hypertension Gout Hair loss Hearing loss HLD (hyperlipidemia) HTN (hypertension) Hypovitaminosis D Lumbar degenerative disc disease Lumbar radiculopathy Moderate asthma Neuropathy Numbness Pure hypercholesterolemia T2DM (type 2 diabetes mellitus) Umbilical hernia Functional capacity: uses cane/walker Patient : No Family History: Family History (Last Reviewed 10/30/20 @ 10:37 by Otilio Gonzalez) Father Renal failure Mother Fatty liver Ovarian cancer Maternal Aunt Ovarian cancer Breast cancer Brother Colon cancer Surgical History: Surgical History (Last Reviewed 10/30/20 @ 10:37 by Otilio Gonzalez) H/O cervical biopsy History of appendectomy History of colonoscopy History of total abdominal hysterectomy and bilateral salpingo-oophorectomy Social History: Social History (Last Reviewed 10/30/20 @ 10:37 by Otilio Gonzalez) Living Situation History: Housing: Apartment Alcohol History: Alcohol intake: former Alcohol History Details: Alcohol intake frequency: does not drink Tobacco History: Patient Tobacco Use Status: Former Tobacco user Tobacco use type: Cigarette e-Cigarette/Vaping Use: Never Used Second Hand Smoke Exposure: No Substance Use History: Use of substances other than those prescribed or required for medical reasons: No Nutrition Assessment: Patient : No Occupation Assessmet: service: No Current occupational status: employed Oncology Screenings - ECOG Performance Status ECOG Performance Status: 1 Home Medications and Allergies Home Medications Medication Instructions Recorded Confirmed Type albuterol sulfate 90 mcg/actuation 2 puff INHALATION Q4H PRN 01/31/20 10/30/20 History aerosol inhaler allopurinol 300 mg tablet 300 mg PO DAILY 01/31/20 10/30/20 History calcium carbonate 600 mg (1,500 1 tab PO BID 01/31/20 10/30/20 History mg)-vitamin D3 400 unit tablet docusate sodium 100 mg capsule 100 mg PO BID PRN 01/31/20 10/30/20 History insulin aspart U-100 100 unit/mL 3 - 9 unit SUBCUT TID 01/31/20 10/30/20 History (3 mL) subcutaneous pen lancets 33 gauge #100 ea 01/31/20 10/30/20 History losartan 50 mg tablet 50 mg PO DAILY 01/31/20 10/30/20 History insulin glargine 100 unit/mL (3 24 unit SUBCUT BEDTIME ml 09/15/20 10/30/20 History mL) subcutaneous pen (Lantus Solostar U-100 Insulin) Allergies Allergy/AdvReac Type Severity Reaction Status Date / Time No Known Allergies Allergy Verified 10/02/20 14:09 Exam Vital signs: Vital Signs Temp 97.1 F 10/30/20 10:36 Pulse 95 10/30/20 10:36 Resp 16 10/30/20 10:36 BP 138/64 10/30/20 10:36 Pulse Ox 95 10/30/20 10:36 Intake & Output 10/29/20 10/30/20 10/30/20 18:59 06:59 18:59 Other: Weight 85.2 kg [place] Weight in Grams 74487 Weight 85.2 kg Body Mass Index 33.3 - Constitutional Present: no acute distress - Routine HEENT Exam Head: Present: normal inspection Eye: Present: normal appearance ENT: Present: mucous membranes moist - Routine Neck Exam Present: full ROM - Routine Respiratory Exam Present: CTAB - Routine Cardiovascular Exam Cardiovascular: Present: RRR, S1, S2 - Routine Abdominal Exam Present: soft, nontender - Routine Rectal Exam Patient deferred: digital exam - Routine Extremities Exam Present: nontender - Routine Back/Spine/Pelvis Exam Back/Spine: Present: full ROM - Routine Skin Exam Present: intact - Routine Neurological Exam Present: alert, oriented X3 - Routine Psychiatric Exam Present: normal affect Data - Labs CBC & Chem 7: 10/30/20 10:36 10/30/20 10:36 Labs: 04/22/20 11:03 Complete Blood Count Auto Diff Routine Comprehensive Met. Panel Routine Ferritin Routine IRON PROFILE Routine Vitamin B12 Routine 10/30/20 10:36 Complete Blood Count Auto Diff Routine Laboratory Last Values WBC 7.2 X10*3/uL (4.8-10.8) 10/30/20 10:36 RBC 4.22 X10*6/uL (4.20-5.50) D 10/30/20 10:36 Hgb 11.5 g/dl (12.0-16.0) L D 10/30/20 10:36 Hct 36.9 % (37-47) L D 10/30/20 10:36 MCV 87.4 fL (80-98) 10/30/20 10:36 MCH 27.3 pg (27.0-33.0) 10/30/20 10:36 MCHC 31.2 g/dl (31.0-35.0) 10/30/20 10:36 RDW 19.4 % (11.0-16.0) H 10/30/20 10:36 Plt Count 149 X10*3/uL (160-400) L 10/30/20 10:36 MPV 8.6 fL (9.4-12.3) L 10/30/20 10:36 Immature Gran % (Auto) 0.3 % (0.0-0.4) 10/30/20 10:36 Neut % (Auto) 75.7 % (45-73) H 10/30/20 10:36 Lymph % (Auto) 12.6 % (20-40) L 10/30/20 10:36 [place] % (Auto) 7.5 % (2-11) 10/30/20 10:36 Eos % (Auto) 3.3 % (0-4) 10/30/20 10:36 Baso % (Auto) 0.6 % (0-2) 10/30/20 10:36 Lymph # (Auto) 0.9 X10*3/uL (1.2-4.9) L 10/30/20 10:36 [place] # (Auto) 0.5 X10*3/uL (0.1-1.2) 10/30/20 10:36 Eos # (Auto) 0.2 X10*3/uL (0.0-0.4) 10/30/20 10:36 Baso # (Auto) 0.0 X10*3/uL (0.0-0.2) 10/30/20 10:36 Abs Immat Gran (auto) 0.02 X10*3/uL (0.00-0.03) 10/30/20 10:36 Absolute Neuts (auto) 5.5 X10*3/uL (2.0-8.3) 10/30/20 10:36 Absolute Nucleated RBC 0.000 X10*3/uL (0.0-0.012) 10/30/20 10:36 Nucleated RBC % (auto) 0.0 /100WBC (0.0-0.2) 10/30/20 10:36 Sodium 138 mmol/L (135-145) 04/22/20 11:03 Potassium 4.7 mmol/L (3.3-5.1) 04/22/20 11:03 Chloride 102 mmol/L (96-108) 04/22/20 11:03 Carbon Dioxide 28 mmol/L (22-29) 04/22/20 11:03 Anion Gap 13 (12-20) 04/22/20 11:03 BUN 29 mg/dL (9-16) H 04/22/20 11:03 Creatinine 1.29 mg/dL (0.5-1.4) 04/22/20 11:03 Estim Creat Clear Calc 41.7 04/22/20 11:03 Estimated GFR 40 04/22/20 11:03 Random Glucose 117 mg/dL (60-115) H 04/22/20 11:03 Calcium 9.1 mg/dL (8.4-10.2) 04/22/20 11:03 Iron 75 mcg/dL (30-160) 04/22/20 11:03 TIBC 394 mcg/dL (228-428) 04/22/20 11:03 % Saturation 19 % (15-50) 04/22/20 11:03 Unsat Iron Binding 319 ug/dL 04/22/20 11:03 Ferritin 13 ng/mL (10-250) 04/22/20 11:03 Total Bilirubin 0.7 mg/dL (0.0-1.0) 04/22/20 11:03 AST 23 U/L (5-31) 04/22/20 11:03 ALT 22 U/L (0-31) 04/22/20 11:03 Alkaline Phosphatase 79 U/L (39-117) 04/22/20 11:03 Total Protein 6.9 g/dL (6.5-8.0) 04/22/20 11:03 Albumin 4.0 g/dL (3.5-5.0) 04/22/20 11:03 Vitamin B12 356 pg/mL (200-900) 04/22/20 11:03 Assessment and Plan Patient Active problem list reviewed?: Yes (1) Pancytopenia Status: Resolved Assessment and plan: This is a pleasant 75 year-old lady, who has had a history of Chronic Pancytopenia. It could be on the basis of Liver Cirrhosis and Hypersplenism. She does have a history of alcoholism. ULTRASOUND OF THE ABDOMEN FROM SEPTEMBER 2017, revealed: There is generalized increase in hepatic echotexture, consistent with fatty infiltration or hepatocellular disease. Please correlate clinically. No focal hepatic mass or intrahepatic biliary dilatation is seen. DIFFERENTIAL DIAGNOSIS: 2. Related to medications: 3. Infection related: Hepatitis bcr HIV. 4. Collagen vascular disorder: Rheumatoid arthritis versus lupus. 5. Underlying myelo infiltrative disorder: Multiple myeloma versus myelodysplastic syndrome. 6. B12 or folate deficiency. l proceeded with further evaluation. I checked, hepatitis ABC profile & HIV: These were normal. Check collagen vascular profile: ESR 29. RA <15, ROSSI:Negative. Checked SIEP: No monoclonal band. B12: 638, folate level: >20. She is clinically doing well. Her Blood counts are holding, stable, actually improved. Her white count is normal. Platelets almost normal. Her hemoglobin has improved. Previously, I had proceeded with anemia workup: B12 folate were fine. Ferritin was low. She had a colonoscopy August of last year by Dr. Coppola, this revealed: There was postsurgical change at the anorectal verge with some erosive inflammatory changes as well as an area that could easily have previously bled. Local treatment with Calmoseptine wipes and suppositories if necessary. Consider bulking agent at least temporarily for 4 to 6 weeks. PLAN: She was advised to continue to take oral iron, with vitamin-C. I discussed iron-containing foods. I will follow her blood count over time. If the count continues to decline, will proceed with a bone marrow exam for further evaluation. She will return in 6 months for a follow-up. She will be seeing ray Esparza for her neurological complaints. Thank you, CC: Rossi Rashid. Abdon. - Time Spent With Patient Time Spent with Patient (in minutes): 30
[2020-10-30 11:09] LABS: Alanine Aminotransferase 19 U/L (0-31); Albumin Level 4.1 g/dL (3.5-5.0); Alkaline Phosphatase 90 U/L (39-117); Anion Gap 19 (12-20); Aspartate Amino Transferase 24 U/L (5-31); Bilirubin Total 0.4 mg/dL (0.0-1.0); Blood Urea Nitrogen 33 mg/dL (9-16); Calcium 9.6 mg/dL (8.4-10.2); Carbon Dioxide 27 mmol/L (22-29); Chloride 102 mmol/L (96-108); Creatinine Clr Calc Pharmacy 31.5; Estimated Glomerular Filt Rate 32; Glucose Random 120 mg/dL (60-115); Potassium 4.7 mmol/L (3.3-5.1); Sodium 143 mmol/L (135-145)
--- NOTE | 2020-10-30 14:46 | MHC.HEMONCMA ---
Pt came in for hem follow up and states she is doing well. clinical summary was updated and labs were drawn. pt will be seen in 6 months for f/u on 04/30/2021.
--- NOTE | 2021-04-30 11:07 | HO.HEMONCSCH ---
Phone has busy tone like it's disconnected. N/S letter mailed.
== END | disposition home or self-care (01) ==
LOC: HO.ONC 04-22 10:02
PROVIDERS: PCP Internal Medicine; Visit Provider Internal Medicine Medical Oncology
DX: D61.818 Other pancytopenia (principal); Z79.899 Other long term (current) drug therapy
CPT/HCPCS: 36415; 80053; 82607; 82728; 83540; 85025; 99214

== ENCOUNTER 2023-12-05 06:49 | Outpatient (REF) | payer MEDICARE, MEDICAID, SELFPAY ==
[2023-12-05 06:04] LABS: MANUAL DIFF FLAG NO
[2023-12-05 07:19] LABS: Basophils Percent Auto 0.5 % (0-2); Eosinophils Absolute Auto 0.4 X10*3/uL (0.0-0.4); Eosinophils Percent Auto 7.3 % (0-4); Hematocrit 30.9 % (37.0-47.0); Hemoglobin 10.1 g/dl (12.0-16.0); Imm Gran Abs Auto 0.02 X10*3/uL (0.00-0.03); Imm Gran Pct Auto 0.4 % (0.0-0.4); Lymphocytes Absolute Auto 1.2 X10*3/uL (1.2-4.9); Lymphocytes Percent Auto 22.1 % (20-40); Mean Corpuscular HGB Conc 32.7 g/dl (31.0-35.0); Mean Corpuscular Hemoglobin 30.5 pg (27.0-33.0); Mean Corpuscular Volume 93.4 fL (80.0-98.0); Mean Platelet Volume 9.4 fL (9.4-12.3); Monocytes Absolute Auto 0.7 X10*3/uL (0.1-1.2); Monocytes Percent Auto 12.2 % (2-11); Neutrophils Absolute Auto 3.2 x10*3/uL (2.0-8.3); Neutrophils Percent Auto 57.5 % (45-73); Platelet Count 116 X10*3/uL (160-400); Red Blood Count 3.31 X10*6/uL (4.20-5.50); Red Cell Distribution Width 13.2 % (11.0-16.0); White Blood Count 5.5 X10*3/uL (4.8-10.8)
[2023-12-05 07:28] LABS: Anion Gap 12 (12-20); Blood Urea Nitrogen 40 mg/dL (9-16); Calcium 8.4 mg/dL (8.4-10.2); Carbon Dioxide 28 mmol/L (22-29); Chloride 105 mmol/L (96-108); Estimated Glomerular Filt Rate 32; Glucose Random 128 mg/dL (60-115); Potassium 3.9 mmol/L (3.3-5.1); Sodium 141 mmol/L (135-145)
[2023-12-05 08:16] LABS: Estimated Average Glucose 151 mg/dL; Hemoglobin A1C 129.6023 umol/L; Hemoglobin A1c % 6.9 % (<6.0)
== END 2023-12-05 06:50 | disposition home or self-care (01) ==
LOC: HO.MMNH3L 06:49
PROVIDERS: Visit Provider Family Medicine
DX: I10 Essential (primary) hypertension (principal); E11.42 Type 2 diabetes mellitus with diabetic polyneuropathy; E78.49 Other hyperlipidemia
CPT/HCPCS: 36415; 80048; 83036; 85025

== ENCOUNTER 2024-03-12 06:14 | Outpatient (REF) | payer MEDICARE, MEDICAID, SELFPAY ==
[2024-03-12 06:17] LABS: MANUAL DIFF FLAG NO
[2024-03-12 07:05] LABS: Alanine Aminotransferase 14 U/L (0-31); Albumin Level 2.9 g/dL (3.5-5.0); Alkaline Phosphatase 56 U/L (39-117); Anion Gap 13 (12-20); Aspartate Amino Transferase 20 U/L (5-31); Bilirubin Total 0.4 mg/dL (0.0-1.0); Blood Urea Nitrogen 46 mg/dL (9-16); Calcium 8.3 mg/dL (8.4-10.2); Carbon Dioxide 26 mmol/L (22-29); Chloride 105 mmol/L (96-108); Estimated Glomerular Filt Rate 32; Glucose Random 146 mg/dL (60-115); Potassium 4.5 mmol/L (3.3-5.1); Sodium 139 mmol/L (135-145); Total Protein 5.8 g/dL (6.5-8.0); Uric Acid 6.9 mg/dL (2.4-5.7)
[2024-03-12 07:06] LABS: Basophils Percent Auto 0.9 % (0-2); Eosinophils Absolute Auto 0.4 X10*3/uL (0.0-0.4); Eosinophils Percent Auto 7.9 % (0-4); Hematocrit 29.9 % (37.0-47.0); Hemoglobin 9.9 g/dl (12.0-16.0); Imm Gran Abs Auto 0.01 X10*3/uL (0.00-0.03); Imm Gran Pct Auto 0.2 % (0.0-0.4); Lymphocytes Absolute Auto 1.2 X10*3/uL (1.2-4.9); Lymphocytes Percent Auto 25.6 % (20-40); Mean Corpuscular HGB Conc 33.1 g/dl (31.0-35.0); Mean Corpuscular Hemoglobin 30.5 pg (27.0-33.0); Mean Platelet Volume 9.9 fL (9.4-12.3); Monocytes Absolute Auto 0.5 X10*3/uL (0.1-1.2); Monocytes Percent Auto 11.2 % (2-11); Neutrophils Absolute Auto 2.5 x10*3/uL (2.0-8.3); Neutrophils Percent Auto 54.2 % (45-73); Platelet Count 114 X10*3/uL (160-400); Red Blood Count 3.25 X10*6/uL (4.20-5.50); Red Cell Distribution Width 13.5 % (11.0-16.0); White Blood Count 4.6 X10*3/uL (4.8-10.8)
[2024-03-12 07:27] LABS: Estimated Average Glucose 174 mg/dL; Hemoglobin A1C 160.9852 umol/L; Hemoglobin A1c % 7.7 % (<6.0); Total Hemoglobin (HGBA1C) 2632.7511 umol/L
== END 2024-03-12 06:15 | disposition home or self-care (01) ==
LOC: HO.MMNH3L 06:14
PROVIDERS: Visit Provider Family Medicine
DX: E11.9 Type 2 diabetes mellitus without complications (principal); M10.9 Gout, unspecified
CPT/HCPCS: 36415; 80053; 83036; 84550; 85025

== ENCOUNTER 2024-03-19 06:07 | Outpatient (REF) | payer MEDICARE, MEDICAID, SELFPAY ==
--- OUTSIDE RECORDS SUMMARY | 2024-03-19 06:10 | XMS_ITS | Data Portability ---
Author Organization [facility], Main Office Address 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 Name Role Phone SARAH MELENDEZ Primary Care Provider [facility] 3RD FLOOR OTHER Assessment Encounter Date Assessment Date Assessment LastModified by Organization Details LastModified Time 10/07/2023 10/07/2023 Spent 30 reviewing records, seeing pt, consulting with staff and documenting [place] Not available 11/27/2023 16:11:49 10/12/2023 10/12/2023 Labs 515: wbc 5.0-hgb 9.4-hct 29 plt 123-Na 138-K 4.3- Bun 38-Cr 1.6 Not available 10/12/2023 12:21:44 11/28/2023 11/28/2023 Labs 5/15: wbc 5.0-hgb 9.4-hct 29 plt 123-Na 138-K 4.3- Bun 38-Cr 1.6 Not available 11/28/2023 11:58:41 Plan of Treatment Reminders Order Date Submit Date Provider Last Modified By Organization Details Last Modified Time Details Appointments None recorded. Lab None recorded. Referral None recorded. Procedures None recorded. Surgeries None recorded. Imaging None recorded. Medication Orders tramadol 50 mg tablet 2023 024 ABIGAIL [facility] , [address] [place] [address], [address], 22:51:04 Patient TargetsNo targets recorded. Patient InstructionsNo instructions recorded. Reason for Referral None Reported. Problems Name Problem SNOMED Code Status Onset Date Resolution Date Notes Provider Name and Address Organization Details Recorded Time Falls [id number] Active 2020 JAREK GRIPPIN, MULTIFOCAL LENS ASSEMBLER [address], [address], [place], [address], [facility] 1 12:59:57 Muscle weakness 79917832 Active 2020 JAREK GRIPPIN, MULTIFOCAL LENS ASSEMBLER [address], [address], [place], [address], [facility] 1 13:23:00 Hyperlipide manuelito 81468547 Active 2020 JAREK GRIPPIN, MULTIFOCAL LENS ASSEMBLER [address], [address], [place], [address], [facility] 13:27:57 Anxiety 37188460 Active 2020 JAREK GRIPPIN, MULTIFOCAL LENS ASSEMBLER [address], [address], [place], [address], [facility] 13:29:56 Osteoporosi s 97965150 Active 2020 Tami Koroma MD [address], [address], [place], [address], [facility] 1 22:38:51 Paresthesia of hand 664334379 Active 2020 Tami Koroma MD [address], [address], [place], [address], [facility] 1 22:49:02 Pain in right hip joint 9227547787674 02 Active 2021 Tami Koroma MD [address], [address], [place], [address], [facility] 2 20:36:19 Pain of right ankle joint 6369249519671 9106 Active 2021 Tami Koroma MD [address], [address], [place], [address], [facility] 2 20:36:23 SARS-CoV-2 Active 2021 JAREK CHARANJIT, MULTIFOCAL L[employer] ASSEMBLER [address], [address], [place], [address], [facility] 2 14:11:45 Chronic kidney disease stage 3A 985793468 Active 2021 Denis Andino MD [address], [address], [place], [address], [facility] 2 12:01:34 Edema of lower extremity 843508146 Active 2021 JAREK DONOHUE NP [address], [address], [place], [address], [facility] 2 13:53:14 Cellulitis of foot 290489511 Active 2021 JAREK DONOHUE NP [address], [address], [place], [place], [address], [facility] 2 14:35:54 Peripheral vascular disease 396190183 Active 2021 JAREK DONOHUE NP [address], [address], [place], [address], [facility] 2 13:11:46 Pain of left wrist 5469324330619 02 Active 2021 JAREK DONOHUE NP [address], [address], [place], [address], [facility] 2 13:23:39 Depressive disorder 36217521 Active 2022 JAREK DONOHUE NP [address], [address], [place], [address], [facility] 3 10:49:37 Pain in coccyx 85734098 Active 2022 JAREK DONOHUE NP [address], [place], [address], [facility] 3 14:00:08 Acute kidney injury 59648321 Active 2022 Lamar Pickett NP [address], [address], [place], [address], [facility] 3 11:30:14 Hyperkalemi a 20701139 Active 2022 Lamar Pickett NP [address], [place], [address], [facility] 3 11:39:22 Normal grief reaction 580249474 Active 2022 JAREK DONOHUE NP [address], [address], [place], [address], [facility] 3 13:03:50 History of hernia repair 5857943083523 9 Active 2023 SARAHI MCFARLAND [address], [address], [place], [address], [facility] 4 17:36:19 Chronic pain 29306269 Active 2018 Denis Andino MD [address], [address], [place], [address], [facility] 9 11:58:23 Chronic obstructive pulmonary disease 72329391 Active 2018 Denis Andino MD [address], [place], [address], [facility] 9 11:58:30 Asthma 898534299 Active 2018 Denis Andino MD [address], [place], [address], [facility] 9 11:58:36 Osteoarthri tis 777650420 Active 2018 Denis Andino MD [address], [place], [address], [facility] 9 11:58:52 Diabetes mellitus 90487525 Active 2018 Denis Andino MD [address], [place], [address], [facility] 9 11:59:04 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 Please review these documents and add these problems to the patient's chart manually as needed. Problem Notes None recorded. Medical Equipment None Reported. Allergies No known drug allergies Medications Name Sig Start Date Stop Date Status Note LastModified by Organization Details LastModified Time hydrocodone 5 mg-acetamino phen 325 mg tablet Take 1 tablet every 4 hours by oral route. 2023 active Not Available Not Available Not Avai lable clonazepam 0.5 mg tablet take 1/2 tab (0.25mg) po at bedtime daily 2023 active Not Available Not Available Not Avai lable tramadol 50 mg tablet 50 mg po qhs scheduled and 50 mg po BID prn 2023 active Not Available Not Available Not Avai lable clonazepam 0.25 mg disintegrati ng tablet Place 1 tablet every day by translingua l route at bedtime. 2023 active Not Available Not Available Not Avai lable Vitals Date Recorded Body height Body mass index (BMI) Body weight Heart rate Respiratory rate Body temperature Oxygen saturation Oxygen saturation in Arterial blood by Pulse oximetry Systolic blood pressure Diastolic blood pressure Provider Name and Address Organization Details Last Updated DateTime 4 157.48 cm 34.1 kg/m2 93523.9 g 78 /min 18 /min 98 [degF] 94 % 94 % 126 mm[Hg] 71 mm[Hg] Tami Koroma MD [address] , [address], [place], [address], [facility] 4 18:21:57 Date Recorded Body height Heart rate Respiratory rate Body temperature Oxygen saturation Oxygen saturation in Arterial blood by Pulse oximetry Systolic blood pressure Diastolic blood pressure Provider Name and Address Organization Details Last Updated DateTime 4 157.48 cm 74 /min 18 /min 97 [degF] 94 % 94 % 132 mm[Hg] 66 mm[Hg] SARAHI MCFARLAND [address] [facility], [address], [place], [address], [facility] 4 12:21:28 Date Recorded Body height Heart rate Respiratory rate Body temperature Oxygen saturation Oxygen saturation in Arterial blood by Pulse oximetry Systolic blood pressure Diastolic blood pressure Provider Name and Address Organization Details Last Updated DateTime 4 157.48 cm 72 /min 18 /min 97.3 [degF] 99 % 99 % 130 mm[Hg] 70 mm[Hg] SARAHI MCFARLAND [address] [facility], [address], [place], [address], [facility] 4 11:58:25 Date Recorded Body height Heart rate Respiratory rate Body temperature Systolic blood pressure Diastolic blood pressure Provider Name and Address Organization Details Last Updated DateTime 4 157.48 cm 68 /min 18 /min 97.5 [degF] 130 mm[Hg] 70 mm[Hg] SARAHI MCFARLAND [address] [facility], [address], [place], [address], [facility] 4 15:16:18 Social History Question Answer Notes LastModified by Organizat ion Details LastModified Time Tobacco Smoking Status Former Smoker smoked 2 ppd until 10 yrs ago. Tami Koroma MD [address] [facility], [address], [place], [address], [facility] 12/28/2020 21:43:37 Do You Have An Advance Directive? Yes Information not available 12/24/2020 What Is Your Level Of Alcohol Consumption? None Hx Of Heavy Use Information not available 12/28/2020 What Is Your Code Status? Full Code Information not available 12/24/2020 Where Do You Live? [facility] Information not available 09/20/2022 Legal Guardian? No Informati on not available 12/28/2020 Do You Have A Medical Power Of Pharmacy Buyer? Yes [place] Information not available 12/28/2020 What Was The Date Of Your Most Recent Tobacco Screening? 05/23/2023 Information not available 05/24/2023 Do You Have An Out Of Hospital DNR? No Information not available 09/20/2022 What Is Your Relationship Status? Information not available 05/24/2023 How Much Tobacco Do You Smoke? No Information not available 12/28/2020 Do You Use Any Illicit Or Recreational Drugs? No Information not available 09/20/2022 Has Tobacco Cessation Counseling Been Provided? No N/a As Pt. No Longer Smokes Information not available 12/28/2020 How Many Years Have You Smoked Tobacco? 25 [id number] Information not available 12/18/2019 Do You Or Have You Ever Used Any Other Forms Of Tobacco Or Nicotine? No Information not available 12/28/2020 Sex: Unknown Functional Status None recorded. Mental Status None recorded. Family History Nothing Reported Notes:father-renal failure m other- fatty liver, ovarian ca brother- colon cancer maternal aunt-ovarian ca, breast ca Medical History No medical history recorded. Gynecological HistoryNo gynecological history recorded. Obstetrics History GPAL:G 0 P 0 0 0 0 Immunizations Vaccine Type Date Status Note Provider Nam e and Address Organization Details Recorded Time COVID-19, mRNA, LNP-S, PF, 30 mcg/0.3 mL dose [address] [facility] 03/18/2021 12:20:45 COVID-19, mRNA, LNP-S, PF, 30 mcg/0.3 mL dose 1 [facility] 12:20:49 Influenza, split virus, quadrivalent, preservative 2 completed Seema batres, [facility] 12/16/2021 13:31:41 Influenza, adjuvanted, quadrivalent, PF 3 [facility] 03/10/2023 12:24:16 Past Encounters Encounter ID Performer Location Encounter Start Date Encounter Closed Date Diagnosis/Indication Diagnosis SNOMED-CT Code Diagnosis ICD10 Code Diagnosis Note [id number] Gina Kiredu [place] [address] [place] [address] 02/27/2018 08:51:51 03/24/2018 10:48:16 Chest wall pain 704854410 R07.89 ACS ruled out.monito r for sx. Chronic ob structive pulmonary disease 23544983 J44.9 stable, no sx. Continue:s pirivasing ulairalbut jone prn Physical deconditioning 7699326294 9102 R68.89 [facility]hab[facility]/OT eval Osteoarthritis 692877916 M19.90 stable, continue:n aproxen bidtylenol prn Fibromyalgia 525839356 M 79.7 stable, chroniclyr icanaproxe ngabapenti ntramadol prn History of benign neoplasm of brain 451706067 Z86.011 unknown disease or dx.will contact pcps office for further info. Essential hypertension 37779398 I10 stable continue:c ozaarlasix ASA Peripheral nerve disease 240566473 G64 stable continue:l yricagabap entintrama dol prn Generalize d anxiety disorder 10885076 F41.1 stableklon opin prn Gout 38309942 M10.9 stable, no sx. Continue:a llopurinol scheduled colchicine scheduled [id number] Denis Andino MD [address] [place] [address] 03/03/2018 11:49:38 03/24/2018 08:46:23 Atypical chest pain 475736824 R07.89 ruled out for cardiac etiology in [facility] [place] 88273238 R53.1 PT OT eval and treatmonit or fall risk Chronic pain 68917147 G8 9.29 [facility] qid lyrica 75 mg bidwill d/c lyricamoni tor for sx control Chronic ob structive pulmonary disease 17736167 J41.1 carrying dxdistant hx tobaccomon itor pulmonary status Asthma 828689707 J45.30 monitor for sx Osteoarthritis 776840993 M15.0 chronic painmonito r with lyrica d/c'ed Diabetes mellitus 154461 09 E11.9 metformin 1000 mg bidmonitor blood glucose Gout 54359576 M10.09 colchicine 0.6 mg bidmonitor for sx control Essential hypertension 02261453 I10 cozaar 50 mg qdlasix 20 mg qdstartnor vasc 5 [place] [id number] Gina Lagos [place] [address] [facility] [place], [place] [address] 03/06/2018 09:10:29 03/24/2018 09:06:35 Atypical chest pain 206929217 R07.89 ruled out for cardiac etiology in [facility] [place] 07744093 R53.1 PT OT eval and treatmonit or fall risk Chronic pain 20457483 G8 9.29 carrying dx- h/o fibromyalg ia, peripheral neuropathy and OA, continuega bapentin 800 mg qidnaproxe ntramadolk lonopin lyrica d/c'd given pt also on jg.monit or for sx control Chronic ob structive pulmonary disease 60362100 J41.1 carrying dxdistant hx tobaccomon itor pulmonary status Asthma 111051892 J45.30 monitor for sx Diabetes mellitus 699969 09 E11.9 metformin 1000 mg bidmonitor blood glucose Gout 03882753 M10.09 on chronic colchicine and allopurino l. unclear if foot pain is gout flare, will check uric acid level. Essential hypertension 90939872 I10 stable,no sx.continu e lasix, cozaar, norvasc. Pain in both feet 586185 9512 4712193 M79.671 M79.672 unclear etiology. joints not warm, swollen, red and pt already on colchicine and allopurino l as well as naproxen, tramadol and gabapentin . check uric acid level along with todays labs that are pending. add lidocaine cream for now to help with pain. [id number] Gina Lagos [place] [address] [facility], [place] [address] 03/14/2018 11:25:40 03/24/2018 09:45:28 Pain in both feet 7971634360 8286418 M79.671 M79.672 unclear etiology. joints not warm, swollen, red and pt already on colchicine and allopurino l as well as naproxen, tramadol and gabapentin . uric acid was neg. likely related to her h/o fibromyalg ia and chronic pain. Recc continue current regimen and PT/ wt bearing activity will help as well. has idocaine cream for now to help with pain. Chronic pain 55522835 G8 9.29 carrying dx- h/o fibromyalg ia, peripheral neuropathy and OA, continuega bapentin 800 mg qidnaproxe ntramadolk lonopin lyrica d/c'd given pt also on jg.monit or for sx control Atypical chest pain 1025 11269 R07.89 ruled out for cardiac etiology in [facility] [place] 57649313 R53.1 PT OT eval and treatmonit or fall risk Chronic ob structive pulmonary disease 20802515 J41.1 carrying dxdistant hx tobaccomon itor pulmonary status Asthma 177227568 J45.30 monitor for sx Diabetes mellitus 158081 09 E11.9 metformin 1000 mg bidmonitor blood glucose Essential hypertension 90469674 I10 stable,no sx.continu e lasix, cozaar, norvasc. [id number] [facility] [address] [place] [address] 03/17/2018 11:44:34 03/24/2018 10:22:41 Atypical chest pain 263082573 R07.89 ruled out for cardiac etiology in [facility] [place] 84361024 R53.1 PT OT eval and treatmonit or fall risk Essential hypertension 09615712 I10 stable,no sx.continu e lasix, cozaar, norvasc.in crease norvasc to 10mg/d and monitor. [id number] Gina [facility] [address] [place] [address] 03/23/2018 11:27:44 04/03/2018 12:13:05 Essential hypertension 33050143 I10 stable,no sx.continu e lasix, cozaar, norvasc. Atypical chest pain 1025 95533 R07.89 ruled out for cardiac etiology in hospitalno complaints recently. [place] 35054341 R53.1 completed rehab, ready for d/c home. Chronic ob structive pulmonary disease 94320402 J41.1 carrying dxdistant hx tobaccomon itor pulmonary status Diabetes mellitus 242235 09 E11.9 metformin 1000 mg bidsugars stable here.f/u with pcp after d/c. Chronic pain 75757459 G8 9.29 carrying dx- h/o fibromyalg ia, peripheral neuropathy and OA, continuega bapentin 800 mg qidnaproxe ntramadolk lonopin lyrica d/c'd given pt also on jg.monit or for sx control [id number] STEPHY TRAVIS [address] [place] [address] [place] [address] 12/23/2020 11:54:48 12/25/2020 15:23:14 Muscle weakness 60896342 M62.81 PT OT eval and treat Asthma 967404803 J45.30 singulair 10 mg dailyalbut jone mdi q4 hr prn Chronic ob structive pulmonary disease 44013697 J41.1 albuterol mdi q4hr prn Chronic pain 00936346 G8 9.29 tramadol 50 mg q6hr prngabapen tin 800 mg qid Diabetes mellitus 491554 09 E11.9 victoza 1.8 mg dailyglarg ine 24 units hsmetformi n 1000 mg bidlispro sliding scale Essential hypertension 99743395 I10 losartan 50 mg dailyspiro nlactone 25 mg dailylasix 20 mg bidmonitor bp Gout 04757649 M10.09 allopurino l 300 mg dailycolch ecine 0.6 mg daily Osteoarthritis 620371446 M15.0 CaD 600/400 dailytrama dol 50 mg q6hr prn [place] 626439647 R29.6 PT OT eval and treatfall precaution sfrequent safety checks Hyperlipidemia 64196097 E78.5 atorvastat in 20 mg daily Anxiety 93721776 F41.9 clonazapam n0.5 mg q12 hr prn [id number] MD GENARO Panda [address] [place] [address] [place] [address] 12/24/2020 19:12:07 12/30/2020 12:30:17 Muscle weakness 85328997 M62.81 Very deconditio john.Needs PT/OT as above.Cont inue fall precaution s.Monitor for safety. Asthma 814186936 J45.30 No current sxs.Contin ue singulair 10 mg qd and albuterol MDI 2 puffs q 4 hrs prn.Monito r resp. status Chronic ob structive pulmonary disease 71432974 J41.1 As above. Diabetes mellitus 850300 09 E11.42 Good control on victoza 1.8 mg qd, lantus 24U qd, metformin 1000 mg BID and SSI.Monito r accuchecks QID. Essential hypertension 97022901 I10 Borderline control on current meds. Will continue for now, but adilson need to make adjustment s.Continue losartan 50 mg qd, spironolac tone 25 mg qd and lasix 20 mg BID.Monito r BP and labs Gout 47840376 M10.09 Continue allopurino l 300 mg qd and colchicine 0.6 mg qd.Monitor sxs. Osteoarthritis 465737766 M15.0 With chronic pain.Connie nue meds and rehab as above. Falls 999962648 R29.6 as above. Hyperlipidemia 15053844 E78.49 Continue atorvastat in 20 mg qd.Monitor labs as outpt. Anxiety 83237741 F41.1 Continue clonazapam 0.5 mg q 12 hrs prnMonitor mood.Psych consult prn. Pain of ri ght ankle joint 0736364746 4061923 M25.571 As above. Pain in ri ght hip joint 1886951876 46866 M25.551 No acute injury found.Cont inue gabapentin 800 mg QID and tramadol 50 mg q 6 hrs prn.Contin ue PT/OT strengthen ing, balance, gait training, safety and function.M onitor sxs. Osteoporosis 17732595 M8 1.0 Continue Ca/D 600/400 mg qd.Monitor as outpt. Paresthesia of hand 3090 17412 R20.2 Concerning for pinched nerve in neck or brachial plexus. Could also be c/w neuropathy from EtOH abuse in the past or CVA.Will get head and neck CT to evaluate. [id number] STEPHY TRAVIS [address] [place] [address] [place] [address] 12/29/2020 11:06:01 12/31/2020 16:10:33 Chronic obstructive pulmonary disease 39634231 J41.1 albuterol mdi q4hr prn Paresthesia of hand 3090 82623 R20.2 Concerning for pinched nerve in neck or brachial plexus. Could also be c/w neuropathy from EtOH abuse in the past or CVA. ordered neckhead CT to evaluate Muscle weakness 05777963 M62.81 PT OT eval and treat [id number] CATHLEEN HONEYCUTT [address] [place] [address] 01/01/2021 09:27:04 01/02/2021 16:16:11 Paresthesia of hand 493770122 R20.2 DDx: pinched nerve, trigger point, brachial plexus injuryCoul d also be c/w neuropathy from EtOH abuse in the past or CVA. ordered neckhead CT to evaluate- pending Muscle weakness 07666017 M62.81 PT OT to [facility] work on loosening of trap muscles and ROM of UE Depressive disorder 3222 9007 F32.A situationa l, continue to monitorcon flask cleaner psych eval if continues [id number] JAREK DONOHUE NP GENARO HONEYCUTT [address] [place] [address] 01/06/2021 11:02:16 01/08/2021 15:54:44 Chronic obstructive pulmonary disease 75121064 J41.1 albuterol mdi q4hr prnmonitor resp status Muscle weakness 10144071 M62.81 PT OT eval and treat [id number] JAREK DONOHUE NP GENARO HONEYCUTT [address] [place] [address] 01/13/2021 08:26:54 01/20/2021 15:54:42 Pain in right hip joint 6746665620 11489 M25.551 No acute injury found.Cont inue gabapentin 800 mg QID and tramadol 50 mg q 6 hrs prn.Contin ue PT/OT strengthen ing, balance, gait training, safety and function.M onitor sxs. Pain of ri ght ankle joint 5156328471 6808842 M25.571 As above. Paresthesia of hand 3090 52227 R20.2 Concerning for pinched nerve in neck or brachial plexus. Could also be c/w neuropathy from EtOH abuse in the past or CVA.Will get head and neck CT to evaluate. Muscle weakness 05192553 M62.81 Very deconditio john.Needs PT/OT as above.Cont inue fall precaution s.Monitor for safety. Asthma 558834413 J45.30 No current sxs.Contin ue singulair 10 mg qd and albuterol MDI 2 puffs q 4 hrs prn.Monito r resp. status Chronic ob structive pulmonary disease 93735117 J41.1 As above. Diabetes mellitus 435540 09 E11.42 Good control on victoza 1.8 mg qd, lantus 24U qd, metformin 1000 mg BID and SSI.Monito r accuchecks QID. Essential hypertension 05629692 I10 Borderline control on current meds. Will continue for now, but adilson need to make adjustment s.Continue losartan 50 mg qd, spironolac tone 25 mg qd and lasix 20 mg BID.Monito r BP and labs Gout 39488893 M10.09 Continue allopurino l 300 mg qd and colchicine 0.6 mg qd.Monitor sxs. Osteoarthritis 829488944 M15.0 With chronic pain.Connie nue meds and rehab as above. Falls 443951709 R29.6 as above. Hyperlipidemia 06838940 E78.49 Continue atorvastat in 20 mg qd.Monitor labs as outpt. Anxiety 78921394 F41.1 Continue clonazapam 0.5 mg q 12 hrs prnMonitor mood.Psych consult prn. Osteoporosis 39169591 M8 1.0 Continue Ca/D 600/400 mg qd.Monitor as outpt. [id number] STEPHY TRAVIS [address] [place] [address] 01/20/2021 09:50:56 01/23/2021 11:16:04 Paresthesia of hand 198091699 R20.2 Concerning for pinched nerve in neck or brachial plexus. Could also be c/w neuropathy from EtOH abuse in the past or CVA.neuro consult-pr obable nerve damage with minimal possiblity of improvemen t Chronic pain 68520606 G8 9.29 tramadol 50 mg q6hr prngabapen tin 800 mg qid Osteoarthritis 913642955 M15.0 With chronic pain.Connie nue meds and rehab as above. [id number] STEPHY TRAVIS [address] [place] [address] 01/27/2021 10:46:36 01/30/2021 13:02:45 Pain in right hip joint 7579244262 97072 M25.551 No acute injury found.Cont inue gabapentin 800 mg QID and tramadol 50 mg q 6 hrs prn.Contin ue PT/OT strengthen ing, balance, gait training, safety and function.M onitor sxs. Pain of ri ght ankle joint 8264029158 1947398 M25.571 As above. Paresthesia of hand 3090 48415 R20.2 Concerning for pinched nerve in neck or brachial plexus. Could also be c/w neuropathy from EtOH abuse in the past or CVA.Will get head and neck CT to evaluate. Muscle weakness 55624208 M62.81 Very deconditio john.Needs PT/OT as above.Cont inue fall precaution s.Monitor for safety. Asthma 044762265 J45.30 No current sxs.Contin ue singulair 10 mg qd and albuterol MDI 2 puffs q 4 hrs prn.Monito r resp. status Chronic ob structive pulmonary disease 29525181 J41.1 As above. Diabetes mellitus 182331 09 E11.42 Good control on victoza 1.8 mg qd, lantus 24U qd, metformin 1000 mg BID and SSI.Monito r accuchecks QID. Essential hypertension 62544879 I10 Borderline control on current meds. Will continue for now, but adilson need to make adjustment s.Continue losartan 50 mg qd, spironolac tone 25 mg qd and lasix 20 mg BID.Monito r BP and labs Gout 15007786 M10.09 Continue allopurino l 300 mg qd and colchicine 0.6 mg qd.Monitor sxs. Osteoarthritis [id number] M15.0 With chronic pain.Connie nue meds and rehab as above. Falls 242733692 R29.6 as above. Hyperlipidemia 22159688 E78.49 Continue atorvastat in 20 mg qd.Monitor labs as outpt. Anxiety 20050105 F41.1 Continue clonazapam 0.5 mg q 12 hrs prnMonitor mood.Psych consult prn. Osteoporosis 77427929 M8 1.0 Continue Ca/D 600/400 mg qd.Monitor as outpt. [id number] MD GENARO Panda TANGELA [address] [place] [address] rd [place] [address] 02/16/2021 16:25:03 02/24/2021 11:45:46 Pain in right hip joint [id number] 03870 M25.551 Continues with pain, but improving. Continue gabapentin 800 mg QID and tramadol 50 mg q 6 hrs prn.Contin ue PT/OT strengthen ing, balance, gait training, safety and function.M onitor sxs. Pain of ri ght ankle joint [id number] 0064796 M25.571 As above. Paresthesia of hand 3090 39618 R20.2 Per neuro likely to be permanent nerve damage.Con tinue rehab and monitor for improvemen t. Muscle weakness 81918117 M62.81 Continues to be weak.Needs PT/OT as above.Cont inue fall precaution s.Monitor for safety. Asthma 846973614 J45.30 No current sxs.Contin ue singulair 10 mg qd and albuterol MDI 2 puffs q 4 hrs prn.Monito r resp. status Chronic ob structive pulmonary disease 62779881 J41.1 As above. Diabetes mellitus 464079 09 E11.42 Good control on victoza 1.8 mg qd, lantus 24U qd, metformin 1000 mg BID and SSI.Monito r accuchecks QID. Essential hypertension 73306178 I10 Control has improved since here.Connie nue losartan 50 mg qd, spironolac tone 25 mg qd and lasix 20 mg BID.Monito r BP and labs Gout 52278324 M10.09 Continue allopurino l 300 mg qd and colchicine 0.6 mg qd.Monitor sxs. Osteoarthritis 643484341 M15.0 With chronic pain.Connie nue meds and rehab as above. Falls 144672671 R29.6 as above. Hyperlipidemia 00631383 E78.49 Continue atorvastat in 20 mg qd.Monitor labs as outpt. Anxiety 09199836 F41.1 Continue clonazapam 0.5 mg q 12 hrs prnMonitor mood.Psych consult prn. Osteoporosis 26540538 M8 1.0 Continue Ca/D 600/400 mg qd.Monitor as outpt. [id number] JAREK DONOHUE NP [address] [place] [address] 03/02/2021 11:43:23 03/04/2021 13:35:52 SARS-CoV-2 484141637 U07.1 02/28 covid positiveen courage fluid intakeivf for anorexiaco nsider decadron for anorexia [id number] Denis Andino MD [address] [place] [address] 03/03/2021 13:10:53 03/05/2021 14:14:24 COVID-19 [id number] U07.1 See HPIPositiv e covid dxmonitor respirator y function, O2 sats and tempmonito r PO intake and need for IVFtreatme nt options currently limitedadv anced directives reviewed - full codecontin ue supportive care and consider treatment options as availablet o ED if decompensa ting Acute kidney injury 1466 9001 N17.8 elevated bun/cremon itor renal functionen courage POavoid nephro toxic meds as ablenephro consult prn [id number] JAREK DONOHUE NP [address] [address] 03/04/2021 08:58:02 03/06/2021 15:44:16 COVID-19 379049903 U07.1 03/01 covid positivePo sitive covid dxmonitor respirator y function, O2 sats and tempmonito r PO intake and need for IVFtreatme nt options currently limitedadv anced directives reviewed - full codecontin ue supportive care and consider treatment options as availablet o ED if decompensa ting Acute kidney injury 1466 9001 N17.8 elevated bun/cremon itor renal functionen courage POavoid nephro toxic meds as ablenephro consult prn [id number] JAREK DONOHUE NP [address] [place] [address] 03/05/2021 13:06:31 03/10/2021 17:44:44 COVID-19 653137432 U07.1 1/9 covid positivePo sitive covid dxmonitor respirator y function, O2 sats and tempmonito r PO intake and need for IVFtreatme nt options currently limitedadv anced directives reviewed - full codecontin ue supportive care and consider treatment options as availablet o ED if decompensa ting Acute kidney injury 1466 9001 N17.8 elevated bun/cremon itor renal functionen courage POavoid nephro toxic meds as ablenephro consult prn [id number] JAREK DONOHUE NP [address] [address] 03/06/2021 13:32:58 03/11/2021 09:30:32 COVID-19 060550740 U07.1 03/01 covid positivePo sitive covid dxmonitor respirator y function, O2 sats and tempmonito r PO intake and need for IVFtreatme nt options currently limitedadv anced directives reviewed - full codecontin ue supportive care and consider treatment options as availablet o ED if decompensa ting Acute kidney injury 1466 9001 N17.8 elevated bun/cremon itor renal functionen courage POavoid nephro toxic meds as ablenephro consult prn [id number] JAREK DONOHUE NP [address] [address] 03/09/2021 10:54:29 03/11/2021 10:36:27 COVID-19 890675928 U07.1 03/01 covid positivePo sitive covid dxmonitor respirator y function, O2 sats and tempmonito r PO intake and need for IVFtreatme nt options currently limitedadv anced directives reviewed - full codecontin ue supportive care and consider treatment options as availablet o ED if decompensa ting Acute kidney injury 1466 9001 N17.8 elevated bun/cremon itor renal functionen courage POavoid nephro toxic meds as ablenephro consult prn [id number] Denis Andino MD [address] [address] 03/10/2021 12:06:21 03/12/2021 16:09:17 COVID-19 240340882 U07.1 Patient covid positiveco ntinue supportive caremonito r PO intake and need for supplement al [id number] y no increase in work of breathingt o ED for acute decompensa tion Chronic renal failure 90 147926 N18.31 appears to have baseline renal failure stage 3monitor renal functionne phro consult prnavoid nephrotoxi c meds as able [id number] STEPHY TRAVIS [address] [place] [address] 03/12/2021 13:43:56 03/18/2021 13:55:07 Pain in right hip joint 7936192781 44629 M25.551 No acute injury found.jg pentin 800 mg QIDtramado l 50 mg q 6 hrs prn.Contin ue PT/OT strengthen ing, balance, gait training, safety and function.M onitor sxs. Pain of ri ght ankle joint 4744924904 6145525 M25.571 As above. Paresthesia of hand 3090 46175 R20.2 Concerning for pinched nerve in neck or brachial plexus. Could also be c/w neuropathy from EtOH abuse in the past or CVA. Muscle weakness 13752092 M62.81 Very deconditio john.Needs PT/OT as above.Cont inue fall precaution s.Monitor for safety. Asthma 416464420 J45.30 No current sxs.singul air 10 mg qdalbutero l MDI 2 puffs q 4 hrs prn.Monito r resp. status Chronic ob structive pulmonary disease 09705697 J41.1 As above. Diabetes mellitus 567235 09 E11.42 Good control on victoza 1.8 mg qd,lantus 24U qd,metform in 1000 mg BID and SSI.Monito r accuchecks QID. Essential hypertension 89413720 I10 Borderline control on current meds. Will continue for now, but adilson need to make adjustment s.losartan 50 mg qd,spirono lactone 25 mg qdlasix 40 mg dailyMonit or BP and labs Gout 73469772 M10.09 allopurino l 300 mg qdcolchici ne 0.6 mg qd.Monitor sxs. Osteoarthritis 647127705 M15.0 With chronic pain.Connie nue meds and rehab as above. Falls 985342637 R29.6 as above. Hyperlipidemia 50185937 E78.49 atorvastat in 20 mg qd.Monitor labs as outpt. Anxiety 82894366 F41.1 clonazapam 0.5 mg q 12 hrs prnMonitor mood.Psych consult prn. Osteoporosis 69679961 M8 1.0 Ca/D 600/400 mg qd.Monitor as outpt. COVID-19 923828926 U07.1 03/01 covid positive-r ecovered by date, asymptomat icPositive covid dxmonitor respirator y function, O2 sats and tempmonito r PO intake and need for IVFtreatme nt options currently limitedadv anced directives reviewed - full codecontin ue supportive care and consider treatment options as availablet o ED if decompensa ting Acute kidney injury 1466 9001 N17.8 elevated bun/cremon itor renal functionen courage POavoid nephro toxic meds as ablenephro consult prn [id number] STEPHY TRAVIS [address] [place] [address] 03/19/2021 09:03:16 03/25/2021 08:23:39 Pain in right hip joint 3118258189 21249 M25.551 No acute injury found.jg pentin 800 mg QIDtramado l 50 mg qd prn.Contin ue PT/OT strengthen ing, balance, gait training, safety and function.M onitor sxs. Pain of ri ght ankle joint [id number] 7491071 M25.571 As above. Paresthesia of hand 3090 41846 R20.2 Concerning for pinched nerve in neck or brachial plexus. Could also be c/w neuropathy from EtOH abuse in the past or CVA.Will get head and neck CT to evaluate. Muscle weakness 95087772 M62.81 Very deconditio john.Needs PT/OT as above.Cont inue fall precaution s.Monitor for safety. Asthma 521468621 J45.30 No current sxs.singul air 10 mg qdalbutero l MDI 2 puffs q 4 hrs prn.Monito r resp. status Chronic ob structive pulmonary disease 14786395 J41.1 As above. Diabetes mellitus 242046 09 E11.42 Good control on victoza 1.8 mg qd,lantus 24U qd,metform in 1000 mg BID and SSI.Monito r accuchecks QID. Essential hypertension 30570963 I10 Borderline control on current meds. Will continue for now, but adilson need to make adjustment s.losartan 50 mg qd,spirono lactone 25 mg qdlasix 40 mg daily.Kaylen tor BP and labs Gout 70383132 M10.09 allopurino l 300 mg qdcolchici ne 0.6 mg qd.Monitor sxs. Osteoarthritis 583303469 M15.0 With chronic pain.CaD 600/400 bidContinu e meds and rehab as above. Falls 217419803 R29.6 PT OT eval and treatfall precaution sfrequent safety checks Hyperlipidemia 53195576 E78.49 atorvastat in 20 mg qd.Monitor labs as outpt. Anxiety 52280914 F41.1 clonazapam 0.5 mg q 12 hrs prnMonitor mood.Psych consult prn. Osteoporosis 01875771 M8 1.0 Ca/D 600/400 mg bidMonitor as outpt. SARS-CoV-2 283240563 U07 .1 02/28 [facility]id positive-[facility] intakeivf for anorexiaco nsider decadron for anorexia [id number] MD GENARO Arriola [address] [place] [address] [place] [address] 05/20/2021 11:51:35 05/22/2021 13:20:41 Essential hypertension 06433266 I10 losartan 50 mg qdlasix 40 mg qdspironol actone 25 mg qdmonitor bp and need to titrate Chronic ki dney disease stage 3A 772887848 N18.31 patient appears with baseline renal failureon above medsmonito r renal function and nephro consult prn Falls 149573354 R29.6 goal in assisted living[facility] l[facility] with [facility] fall risktherap y reeval prn [id number] STEPHY TRAVIS [address] [place] [address] [place] [address] 06/29/2021 13:51:21 07/01/2021 14:54:55 Edema of lower extremity 434004345 R60.0 losartan 50 mg qdlasix 40 mg qd-add 20 mg at suppertime kcl 20 meq dailyspiro nolactone 25 mg qd [id number] Tami Koroma MD [address] [place] [address] 07/02/2021 19:25:14 07/14/2021 15:26:55 Edema of lower extremity 438374607 R60.0 Continue meds as above.Elev ate as much as able.Monit or. Essential hypertension 72526897 I10 Good control on losartan 50 mg qd, lasix 40 mg qd, and spironolac tone 25 mg qdContinue KCl 20 meq qd to prevent hypokalemi a.Monitor BP and labs Chronic dney disease stage 3A 666094107 N18.31 At baseline.C ontinue to avoid nephrotoxi c meds as able.Monit or labs.Renal consult prn. Falls 462277841 R29.6 Not yet at goal.Connie nues to need assist for ambulation .Continue PT/OT for strengthen ing, balance, gait training, safety and function.C ontinue fall precaution s.Monitor for safety. Neuritis o f right ulnar nerve 9032523631 1257692 G56.21 Will have OT get pt padding for right elbow.Tx as needed. [id number] STEPHY TRAVIS [address] [address] 07/06/2021 14:43:56 07/08/2021 14:31:46 Hemorrhoids 24251979 K64.9 soft not engorged, flat no bleeding Falls 867498303 R29.6 PT OT eval and treatfall precaution sfrequent safety checks [id number] JAREK DONOHUE NP [address] [address] 08/27/2021 12:05:50 09/01/2021 15:16:16 Essential hypertension 25221455 I10 Good control onlosartan 50 mg qd,lasix 40 mg qd and 20 mg afternoon, spironolac tone 25 mg qdKCl 20 meq qd to prevent hypokalemi a.Monitor BP and labs Chronic dney disease stage 3A 596431784 N18.31 At baseline.C ontinue to avoid nephrotoxi c meds as able.Monit or labs.Renal consult prn. Edema of l ower extremity 428382399 R60.0 lasix 40 mg am, 20 mg afternoonE levate as much as able.compr ession stockingsM onitor. Neuritis o f right ulnar nerve 2190931332 5052744 G56.21 Will have OT get pt padding for right elbow.Tx as needed. Anxiety 59115526 F41.1 Monitor mood.Psych consult prn. Asthma 264803736 J45.30 No current sxs.singul air 10 mg qdalbutero l MDI 2 puffs q 4 hrs prn.Monito r resp. status Chronic ob structive pulmonary disease 00935342 J41.1 As above. Chronic pain 66506193 G8 9.29 tramadol 50 mg q12hr prngabapen tin 800 mg qid Diabetes mellitus 421576 09 E11.42 Good control on victoza 1.8 mg qd,lantus 24U qd,metform in 1000 mg BID and SSI.Monito r accuchecks QID. Gout 06081309 M10.09 allopurino l 300 mg qdcolchici ne 0.6 mg qd.Monitor sxs. Hyperlipidemia 40234097 E78.49 atorvastat in 20 mg qd.Monitor labs as outpt. Osteoarthritis 025530603 M15.0 With chronic pain.CaD 600/400 bidContinu e meds and rehab as above. 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 clonazepam 0.5 mg q12h prn (14 day trial through 10/19/21)wi ll monitorHDB H prn (Patient has declined meds for depression in past.) Diabetes mellitus 713397 09 E11.42 Lantus 24U at hsinsulin aspart per sliding scalemetfo rmin 1000 mg bidVictoza 1.8 mg SC dailywill monitor Essential hypertension 71459399 I10 furosemide 40 mg daily in morning and 20 mg in afternoonl osartan 50 mg dailyspiro nolactone 25 mg dailywill monitor Gout 51899264 M10.09 allopurino l 300 mg dailycolch icine 0.6 mg dailywill monitor Hyperlipidemia 65906891 E78.49 atorvastat in 20 mg dailywill monitor Chronic ob structive pulmonary disease 24592416 J41.0 albuterol HFA: 2 puffs q4h prnmontelu kast 10 mg dailywill monitor Peripheral edema 1346295 00 R60.0 furosemide 40 mg in morning and 20 mg in afternoons pironolact one 25 mg dailywill monitor [id number] JAREK DONOHUE NP [address] [address] 11/25/2021 14:31:15 12/01/2021 16:03:01 Cellulitis of foot 435914539 L03.119 monitor for improvment keflex 500 mg bid to 7 days [id number] JAREK DONOHUE NP [address] [address] 11/30/2021 12:44:52 12/02/2021 09:37:38 SARS-CoV-2 450204787 U07.1 11/28 covid positiveen courage fluid intakeivf for anorexiaco nsider decadron for sobsend to ED for decompensa tion Cellulitis of foot 46189 6007 L03.119 monitor for improvment keflex 500 mg bid to 7 days [id number] JAREK DONOHUE NP [address] [address] 12/02/2021 13:30:19 12/04/2021 15:05:52 SARS-CoV-2 515948613 U07.1 11/28 covid positiveen courage fluid intakeivf for anorexiaco nsider decadron for sobsend to ED for decompensa tion Cellulitis of foot 85436 6007 L03.119 monitor for improvment -recovered keflex 500 mg bid to 7 daysvascul ar appt as now her feet are cool and purple [id number] JAREK DONOHUE NP [address] [address] 12/03/2021 13:12:39 12/08/2021 14:54:41 SARS-CoV-2 305468034 U07.1 11/28 covid positiveen courage fluid intakeivf for anorexiaco nsider decadron for sobsend to ED for decompensa tion Cellulitis of foot 51663 6007 L03.119 monitor for improvment -recovered cellulitis keflex 500 mg bid to 7 daysvascul ar appt as now her feet are cool and purple [id number] JAREK DONOHUE NP [address] [address] 12/04/2021 14:01:40 12/08/2021 15:20:41 Cellulitis of foot 243626176 L03.119 monitor for improvment -recovered cellulitis keflex 500 mg bid to 7 daysvascul ar appt as now her feet are still slightly dusky Edema of l ower extremity 372803048 R60.0 lasix 40 mg am, 20 mg afternoonE levate as much as able.compr ession stockingsM onitor. SARS-CoV-2 043948392 U07 .1 11/28 covid positiveen courage fluid intakeivf for anorexiaco nsider decadron for sobsend to ED for decompensa tion [id number] JAREK DONOHUE NP [address] [address] 12/07/2021 13:15:52 12/10/2021 15:09:54 SARS-CoV-2 710921405 U07.1 11/28 covid positiveen courage fluid intakeivf for anorexiaco nsider decadron for sobsend to ED for decompensa tion Edema of l ower extremity 098196117 R60.0 lasix 40 mg am, 20 mg afternoonE levate as much as able.compr ession elke onitor. [id number] JAREK DONOHUE NP [address] [address] 12/09/2021 13:10:43 12/11/2021 15:45:06 Peripheral vascular disease 032458215 I73.9 vascular appt 12/10 SARS-CoV-2 245009488 U07 .1 11/28 covid positive-a symptomati c, recovered by dateencour age fluid intakeivf for anorexiaco nsider decadron for sobsend to ED for decompensa tion [id number] JAREK DONOHUE NP [address] [address] 01/18/2022 13:22:44 01/20/2022 20:31:17 Falls 381782502 R29.6 PT OT eval and treatfall precaution sfrequent safety checks Pain of left wrist 52135 93316 92198 M25.532 tylenol prnice-kaitlin vate prnxray of left wrist [id number] Jazmin Orozco MD [address] [address] 01/29/2022 06:23:17 02/02/2022 15:38:51 Chronic obstructive pulmonary disease 31898910 J41.0 albuterol HFA: 2 puffs q4h prnmontelu kast 10 mg dailywill monitor Diabetes mellitus 696872 09 E11.42 Lantus 24U at hsinsulin aspart per sliding scalemetfo rmin 1000 mg bidVictoza 1.8 mg SC dailywill monitor Essential hypertension 01403537 I10 furosemide 40 mg daily in morning and 20 mg in afternoonl osartan 50 mg dailyspiro nolactone 25 mg dailywill monitor Gout 97065814 M10.09 allopurino l 300 mg dailycolch icine 0.6 mg dailywill monitor SARS-CoV-2 710410974 U07 .1 tested positive 11/28/21ha d asymptomat ic coursereco veredwill continue to monitor Chronic pain 15499919 G8 9.29 physiatry prngabapen tin 800 mg [id number] 650 mg q6h prntramado l [facility] Mixed anxi ety and depressive disorder 476904652 F41.8 [facility]epam [facility] monitorHDB H prn (Patient has declined meds for depression in past.) Hyperlipidemia 88594556 E78.49 atorvastat in 20 mg dailywill monitor [id number] STEPHY TRAVIS TANGELA [address] [place] [address] 03/01/2022 14:00:55 03/03/2022 09:51:32 Edema of lower extremity 509803765 R60.0 lasix 40 mg am, 40 mg afternoonE levate as much as able.compr ession stockingsM onitor. Chronic pain 36004563 G8 9.29 tramadol 50 mg q12hr prngabapen tin 800 mg qid Muscle weakness 08820456 M62.81 Very deconditio john againNeeds PT/OT as above.Cont inue fall precaution s.Monitor for safety. Anxiety 31679857 F41.1 Monitor mood.Psych consult prn. [id number] STEPHY TRAVIS [address] [address] 03/15/2022 10:51:50 03/17/2022 14:55:23 Chronic pain 47578723 G89.29 tramadol 50 mg q12hr prngabapen tin 800 mg qidxray hips and tailbone [id number] STEPHY TRAVIS TANGELA [address] [place] [address] 03/17/2022 14:08:44 03/23/2022 09:31:25 Chronic pain 77153527 G89.29 tramadol 50 mg q12hr prngabapen tin 800 mg qidxray hips and tailbone-- all negative Diabetes mellitus 847864 09 E11.42 victoza 1.8 mg qd,lantus 24U qd, increase to 25unitsmet formin 1000 mg BID and SSI.Monito r accuchecks QID. [id number] STEPHY TRAVIS TANGELA [address] [place] [address] 03/25/2022 12:12:48 03/29/2022 16:21:44 Chronic obstructive pulmonary disease 38539675 J41.0 albuterol HFA: 2 puffs q4h prnmontelu kast 10 mg dailywill monitor Diabetes mellitus 872663 09 E11.42 Lantus 25U at hsinsulin aspart per sliding scalemetfo rmin 1000 mg bidVictoza 1.8 mg SC dailywill monitor Essential hypertension 96697395 I10 furosemide 40 mg daily in morning and 20 mg in afternoonl osartan 50 mg dailyspiro nolactone 25 mg dailywill monitor Gout 50080771 M10.09 allopurino l 300 mg dailycolch icine 0.6 mg dailywill monitor SARS-CoV-2 976571002 U07 .1 tested positive 11/28/21-r ecovered by datecandy asymptomat ic coursereco veredwill continue to monitor Chronic pain 20000095 G8 9.29 physiatry prngabapen tin 800 mg p2dSFWF 650 mg q6h prntramado l 50 mg at hswill monitor Mixed anxi ety and depressive disorder 774513537 F41.8 clonazepam 0.5 mg at hswill monitorHDB H prn (Patient has declined meds for depression in past.) Hyperlipidemia 03686599 E78.49 atorvastat in 20 mg dailywill monitor [id number] STEPHY TRAVIS TANGELA [address] [place] [address] 04/12/2022 10:48:15 04/14/2022 13:56:56 Chronic pain 96102003 G89.29 physiatry prngabapen tin 800 mg [id number] 650 mg q6h prntramado l 50 mg at q8hr amd q12hr prnwill monitor Falls 820483444 R29.6 PT OT eval and treatfall precaution sfrequent safety checks Depressive disorder 4808 9007 F32.A stop zoloftstar t lexapro 5 mg daily [id number] JAREK DONOHUE NP [address] [address] 05/19/2022 13:57:34 05/21/2022 15:29:23 Edema of lower extremity 516848219 R60.0 lasix 40 mg amElevate as much as able.compr ession stockingsM onitor. Pain in coccyx 79965564 M53.3 monitor skin for potential breakdowns kin barrier [id number] Jazmin Orzoco MD [address] [address] 05/26/2022 08:55:13 06/02/2022 11:46:37 Chronic obstructive pulmonary disease 63801908 J41.0 albuterol HFA: 2 puffs q4h prnmontelu kast 10 mg dailywill monitor Chronic pain 34812600 G8 9.29 physiatry prngabapen tin 800 mg [id number] 650 mg q6h prntramado l 50 mg q8h and q12 hr prn - consider taperwill monitor Diabetes mellitus 972426 09 E11.42 Lantus 25U at hsinsulin aspart per sliding scalemetfo rmin 1000 mg bidVictoza 1.8 mg SC dailywill monitor Essential hypertension 99670124 I10 furosemide 40 mg dailylosar fuller 50 mg dailyspiro nolactone 25 mg dailywill monitor Gout 97430142 M10.09 allopurino l 300 mg dailycolch icine 0.6 mg dailywill monitor Mixed anxi ety and depressive disorder 115288996 F41.8 clonazepam 0.5 mg at hsescitalo pram 5 mg dailywill monitor Hyperlipidemia 65083330 E78.49 atorvastat in 20 mg dailywill monitor [id number] JAREK DONOHUE NP [address] [address] 05/31/2022 13:07:57 06/08/2022 12:40:34 Chronic kidney disease stage 3A 832007232 N18.31 worsening due to meds and decreased po intakeD5 1/2 NS iv 50ml/hr for 3 ltrsBMP WedContinu e to avoid nephrotoxi c meds as able.Monit or labs.Renal consult prn. Lamar Pickett NP [address] [address] 06/05/2022 10:47:36 06/08/2022 13:23:41 Chronic kidney disease stage 3A 417599115 N18.31 recent hospitaliz ation for CKD see AKIsee above AKIContinu e to avoid nephrotoxi c meds as able, see aboveMonit or labs.Renal consult 1-[address] Monreal Chronic ob structive pulmonary disease 81877484 J41.0 albuterol HFA: 2 puffs q4h prnmontelu kast 10 mg dailywill monitor Chronic pain 36218025 G8 9.29 physiatry prngabapen tin 800 mg [id number] 650 mg q6h prntramado l 50 mg q8h and q12 hr prn - consider taperwill monitor Diabetes mellitus 261039 09 E11.42 Lantus 25U at hsinsulin aspart per sliding scaledc in hospital for TISHA metformin 1000 mg bidVictoza 1.8 mg SC dailywill monitor Essential hypertension 63647354 I10 hold furosemide 40 mg daily until 06/11dc losartan 50 mg dailywill monitor bpbp low stable currently Gout 91480290 M10.09 allopurino l decreased to 50 mg daily on Tuesday and co lchicine 0.6 mg daily, hold for diarrheaur ic acid level on 06/07will monitor Mixed anxi ety and depressive disorder 055354084 F41.8 clonazepam 0.5 mg at hsescitalo pram 5 mg dailywill monitor Hyperlipidemia 07203006 E78.49 atorvastat in 20 mg dailywill monitor Acute kidney injury 1466 9001 N17.9 TISHA with hospitaliz ation multifacto rial with dehydratio n, lasix, losartan and diarrhea per nephrology losartan dc'd, lasix on hold until 06/11, metformin dc'd, allopurino l adjusted from 300 mg to 50 mg on mondays and f u with nephrology Dr. Monreal in 1-2 weekslabs on 06/07/22 ordered Hyperkalemia 28623696 E8 7.5 hyperkalem ia resolved and [facility] on [facility]07, last k 4.6 on 06/04 [id number] STEPHY TRAVIS [address] [place] [address] 06/07/2022 14:23:16 06/10/2022 15:07:24 Acute kidney injury 55527633 N17.9 TISHA with hospitaliz ation multifacto rial with dehydratio n, lasix, losartan and diarrhea per nephrology losartan dc'd, lasix on hold until 06/11, metformin dc'd, allopurino l adjusted from 300 mg to 50 mg on mondays and f u with nephrology Dr. Monreal in 1-2 weekslabs on 06/07/22 ordered Chronic ki dney disease stage 3A 956313219 N18.31 recent hospitaliz ation for CKD see AKIsee above AKIContinu e to avoid nephrotoxi c meds as able, see aboveMonit or labs.Renal consult 1-[address] Monreal Hyperkalemia 34103327 E8 7.5 hyperkalem ia resolved and k was 6.4 in [facility] supplement discontinu ed in [facility] on 06/07, last k 4.6 on 06/04 Chronic ob structive pulmonary disease 09104917 J41.0 albuterol HFA: 2 puffs q4h prnmontelu kast 10 mg dailywill monitor Chronic pain 08503627 G8 9.29 gabapentin 800 mg [id number] 650 mg q6h prntramado l 50 mg q0uplwax monitor Diabetes mellitus 722621 09 E11.42 Lantus 25U at hsinsulin aspart per sliding scaledc in hospital for TISHA metformin 1000 mg bidVictoza 1.8 mg SC dailywill monitor Essential hypertension 18870763 I10 hold furosemide 40 mg daily until 06/11dc losartan 50 mg dailywill monitor bpbp low stable currently Gout 15216357 M10.09 allopurino l decreased to 50 mg daily on Tuesday and co lchicine 0.6 mg daily, hold for diarrheaur ic acid level on 06/07will monitor Mixed anxi ety and depressive disorder 542623092 F41.8 clonazepam 0.5 mg at hsescitalo pram 5 mg dailywill monitor Hyperlipidemia 57325010 E78.49 atorvastat in 20 mg dailywill monitor [id number] JAREK DONOHUE NP [address] [address] 06/11/2022 13:52:33 06/15/2022 15:23:12 Acute kidney injury 49036372 N17.9 TISHA with hospitaliz ation multifacto rial with dehydratio n, lasix, losartan and diarrhea per nephrology losartan dc'd, lasix on hold until 06/11, metformin dc'd, allopurino l adjusted from 300 mg to 50 mg on mondays and f u with nephrology Dr. Monreal in 1-2 weekslabs on 06/07/22 ordered Edema of l ower extremity 230175902 R60.0 lasix 40 mg amElevate as much as able.compr ession stockingsM onitor. Chronic ki dney disease stage 3A 732408441 N18.31 recent hospitaliz ation for CKD see AKIsesabrina above AKIContinu e to avoid nephrotoxi c meds as able, see aboveMonit or labs.Renal consult 1-[address] Monreal [id number] JAREK DONOHUE NP [address] [address] 06/16/2022 12:53:11 06/18/2022 13:10:44 Normal grief reaction 467154973 F43.20 x- sunday 06/18she has prn clonazapam Chronic ki dney disease stage 3A 184587803 N18.31 recent hospitaliz ation for CKD see AKIsesabrina above AKIContinu e to avoid nephrotoxi c meds as able, see aboveMonit or labs.Renal consult 1-[address] Monreal [id number] JAREK DONOHUE NP [address] [address] 06/23/2022 13:18:38 06/30/2022 14:46:10 Chronic obstructive pulmonary disease 99563675 J41.0 albuterol HFA: 2 puffs q4h prnmontelu kast 10 mg dailywill monitor Depressive disorder 4969 1243 F32.A lexapro 5 mg daily-incr ease to 10 mgpsych prn Pain in ri ght hip joint [id number] 11452 M25.551 No acute injury found.jg pentin 800 mg QIDtramado l 50 mg qd.Continu e PT/OT strengthen ing, balance, gait training, safety and function.M onitor sxs.ortho consult for possible injection [id number] STEPHY TRAVIS [address] [place] [address] 07/20/2022 15:19:14 07/28/2022 16:24:47 Acute kidney injury 63058616 N17.9 TISHA with hospitaliz ation multifacto rial with dehydratio n, lasix, losartan and diarrhea per nephrology losartan dc'd, lasix 40 mg daily, metformin dc'd, allopurino l adjusted from 300 mg to 50 mg on mondays and f u with nephrology Dr. Monreal in 1-2 weekslabs monitored Chronic ki dney disease stage 3A 977823361 N18.31 recent hospitaliz ation for CKD see AKIsee above AKIContinu e to avoid nephrotoxi c meds as able, see aboveMonit or labs.Renal consult Dr. Monreal Hyperkalemia 47547795 E8 7.5 hyperkalem ia resolved and k was 6.4 in [facility] supplement discontinu ed in [facility] Chronic ob structive pulmonary disease 14625568 J41.0 albuterol HFA: 2 puffs q4h prnmontelu kast 10 mg dailywill monitor Chronic pain 10206727 G8 9.29 gabapentin 800 mg [id number] 650 mg q6h prntramado l 50 mg [id number] monitor Diabetes mellitus 618926 09 E11.42 Lantus 25U at hsinsulin aspart per sliding scaleVicto za 1.8 mg SC dailywill monitor Essential hypertension 82589046 I10 furosemide 40 mg dailywill monitor bpbp low stable currently Gout 93718640 M10.09 allopurino l decreased to 50 mg daily on Tuesday and co lchicine 0.6 mg daily, hold for diarrheaur ic acid levelwill monitor Mixed anxi ety and depressive disorder 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 Chronic ob structive pulmonary disease 81778466 J41.0 albuterol HFA: 2 puffs q4h prnmontelu kast 10 mg dailywill monitor Falls 248636501 R29.6 PT OT eval and treatfall precaution sfrequent safety checks [id number] Tami Koroma MD [facility] [address] [place] [address] 09/20/2022 19:12:55 10/05/2022 13:35:55 Anxiety 98914852 F41.1 Mood stable.Con tinue escitalopr am 10 mg qd and clonazepam 0.5 mg qhs.Monito r mood.Psych following. Chronic ob structive pulmonary disease 61329114 J41.0 No current sxs.Contin ue singulair 10 mg qd and albuterol MDI 2 puffs q 4 hrs prn.Monito r resp. status Falls 624484029 R29.6 Brody dependent. Continue fall precaution s.Monitor for safety. Ingrowing nail 574563589 L60.0 Not improving with Keflex, will change to doxy 100 mg BID x 7 d.Monitor sxs.Wound consult Chronic ki dney disease stage 3A 241878239 N18.31 Was almost back to baseline at last check in 05/2022.Con tinue to avoid nephrotoxi c meds as able.Monit or labs, will check this wk.Renal f/u as planned. Chronic pain 61370679 G8 9.29 Continue gabapentin 800 mg QID, tramadol 50 mg q 6 hrs prn and APAP 650 mg q 6 hrs prnMonitor sxs. Diabetes mellitus 830250 09 E11.42 Good control on victoza 1.8 mg qd, lantus 24U qd, and SSI. Monitor accuchecks TID. Essential hypertension 25226318 I10 Good control on furosemide 40 mg qdMonitor BP and labs. Chronic constipation 236 455988 K59.09 Will add miralax 17 gms qd and continue metamucil 1 tsp qd and miralax BID prn.Monito r bowel function [id number] STEPHY TRAVIS TANGELA [address] [place] [address] [place] [address] 11/12/2022 10:43:31 11/16/2022 19:30:19 Anxiety 08773902 F41.1 Mood stable.esc italopram 10 mg qdclonazep am 0.5 mg qhs.Monito r mood.Psych following. Chronic ob structive pulmonary disease 31463887 J41.0 No current sxs.singul air 10 mg qdalbutero l MDI 2 puffs q 4 hrs prn.Monito r resp. status Falls 766742062 R29.6 Brody dependent. Continue fall precaution s.Monitor for safety. Chronic ki dney disease stage 3A 667654815 N18.31 Was almost back to baseline at last check in 05/2022.Con tinue to avoid nephrotoxi c meds as able.Monit or labs, will check this wk.Renal f/u as planned. Chronic pain 50390413 G8 9.29 gabapentin 800 mg QID,tramad ol 50 mg at 1400 decreased from bidAPAP 650 mg q 6 hrs prnMonitor sxs. Diabetes mellitus 745710 09 E11.42 Good control on victoza 1.8 mg qd,lantus 25 Units qd, and SSI.Monito r accuchecks TID. Essential hypertension 43739791 I10 Good control on furosemide 40 mg qdMonitor BP and labs. Chronic constipation 236 553902 K59.09 Will add miralax 17 gms qd and continue metamucil 1 tsp qd and miralax BID prn.Monito r bowel function [id number] STEPHY TRAVIS [address] [place] [address] 12/31/2022 15:41:28 01/03/2023 15:15:47 Anxiety 19593152 F41.1 Mood stable.esc italopram 10 mg qdclonazep am 0.5 mg qhs.Monito r mood.Psych following. Chronic ob structive pulmonary disease 78578784 J41.0 No current sxs.singul air 10 mg qdalbutero l MDI 2 puffs q 4 hrs prn.Monito r resp. status Falls 978412722 R29.6 Brody dependent. Continue fall precaution s.Monitor for safety. Chronic ki dney disease stage 3A 823738031 N18.31 Was almost back to baseline at last check in 05/2022.Con tinue to avoid nephrotoxi c meds as able.Monit or labs, will check this wk.Renal f/u as planned. Chronic pain 22346753 G8 9.29 gabapentin 800 mg QID,tramad ol 50 mg at 1400 decreased from bidAPAP 650 mg q 6 hrs prnMonitor sxs. Diabetes mellitus 256196 09 E11.42 Good control on victoza 1.8 mg qd,lantus 25 Units qd, and SSI.Monito r accuchecks TID. Essential hypertension 19309203 I10 Good control on furosemide 40 mg qdMonitor BP and labs. Chronic constipation 236 101131 K59.09 miralax 17 gms qdmetamuci l 1 tsp qdmiralax BID prn.Monito r bowel function [id number] Tami Koroma MD [address] [address] 01/20/2023 18:42:19 02/01/2023 09:01:35 Anxiety 54990900 F41.1 Mood stable.Con tinue escitalopr am 10 mg qd and clonazepam 0.5 mg qhs.Monito r mood.Psych following. Chronic ob structive pulmonary disease 21118087 J41.0 No current sxs.Contin ue singulair 10 mg qd and albuterol MDI 2 puffs q 4 hrs prn.Monito r resp. status Falls 533676976 R29.6 Brody dependent. Continue fall precaution s.Monitor for safety. Chronic ki dney disease stage 3A 271778222 N18.31 At baseline at last check in 11/2022.Co ntinue to avoid nephrotoxi c meds as able.Renal f/u as planned.Connelly s labs ordered monthly, but not done since 12/08/22, will change to every 3 months as she has been stable. Chronic pain 11770024 G8 9.29 With continued neuropathy pain, already on max dose of gabapentin .Continue gabapentin 800 mg QID, tramadol 50 mg TID and APAP 650 mg q 6 hrs prnMonitor sxs. Diabetes mellitus 805386 09 E11.42 FIngerstic ks variable. No HgA1C in the past yr.Continu e victoza 1.8 mg qd, lantus 25U qd, and SSI.Monito r accuchecks TID, will order HgA1C for next tuesday. Essential hypertension 33074599 I10 Remains in good control on furosemide 40 mg qdMonitor BP and labs. Chronic constipation 236 668796 K59.09 Continue metamucil 1 tsp qd and miralax 17 gms BID prn.Monito r bowel function Asthenia 29317705 R53.81 Encouraged pt to get up to activities again. Reminded her that getting up helps her feel better.Mon itor [id number] SARAHI MCFARLAND [address] [place] [address] 03/10/2023 08:15:48 03/14/2023 15:52:57 Abdominal pain 88093743 R10.9 diffuse abdominal pain , reports hx of hernia( not appreciate d on exam)5/10 when lying 7/10 when sitting upwaxes and wane -non radiatinga ggravated when having a bowel moving or sitting up.will obtain abd U/S-cbc- bmp-amylas e and lipaseAfte r exam patient is noted sitting up in bed eating breakfast. Hemorrhoids 62800292 K64 .9 patient reports hx internal and externalre ports flare up, she tells me that suppositor ies does not stay in.Nursing reports that she complains but will refuse treatment. plan of care discussed with nursing. [id number] SARAHI MCFARLAND [address] [place] [address] 04/06/2023 08:03:00 04/07/2023 19:40:55 Abdominal pain 27800043 R10.9 03/31: Updated by RAHEL that pt reports abdominal pain during care conference . diffuse abdominal pain , reports hx of hernia( not appreciate d on exam): recent ultrasound see above- previous US ordered on 03/11 not completed ? unsure if ordered by nursing.re [place] [facility] [place]men t confirmati on.waxes and wane -non radiatinga ggravated when having a bowel moving or sitting up.will get updated labs for 04/11/23 Chronic pain 03104713 G8 9.29 With continued neuropathy pain, already on max dose of gabapentin .Continue gabapentin 800 mg QID, tramadol 50 mg TID and APAP 650 mg q 6 hrs prnMonitor sxs. Asthma 254667478 J45.30 singulair 10 mg qdalbutero l MDI 2 puffs q 4 hrs prn.Monito r resp. status Depressive disorder 3548 9007 F32.A lexapro 5 mg daily-incr ease to 10 mgpsych prn Diabetes mellitus 158295 09 E11.42 Fingerstic ks variable. No HgA1C in the past yr.lantus 25U qd, and SSI.Monito r accuchecks TID, will order HgA1C for next tuesday.Monty toza changed to trulicity per insurance will not cover victoza. Essential hypertension 53596288 I10 Remains in good control on furosemide 40 mg qdMonitor BP and labs. Hyperlipidemia 30427557 E78.49 atorvastat in 20 mg dailywill monitor [id number] SARAHI MCFARLAND [address] [place] [phone] 07/01/2023 12:39:23 07/05/2023 11:14:24 Abdominal pain 95618081 R10.9 03/31: Updated by RAHEL that pt reports abdominal pain during care conference . diffuse abdominal pain , reports hx of hernia( not appreciate d on exam): recent ultrasound see above- previous US ordered on 03/11 not completed ? unsure if ordered by nursing.re ferral to [place] [facility] [place] appointmen t confirmati on.waxes and wane -non radiatinga ggravated when having a bowel moving or sitting up.will get updated labs for 04/11/23 History of hernia repair 2901502154 9109 Z98.890 07/01/23:s/ p repair of incarcerat ed umbilical hernia w/o obstructio n and unilateral inguinal with mesh.post op follow up on 07/11/[address] [place] [address] [place] [facility] [place] starting 07/04/23. Do not remove or get wet dressing wet.VS qshiftNurs ing to update providers with any acute changes.LA BS ORD FOR 07/04/23 PLACED IN [facility] [id number] SARAHI MCFARLAND [address] [address] 07/04/2023 15:25:43 07/06/2023 09:53:33 History of hernia repair 6454716654 9109 Z98.890 07/01/23:s/ p repair of incarcerat ed umbilical hernia w/o obstructio n and unilateral inguinal with mesh.post op follow up on 07/11/[address] [place] [address] [place] [facility] [place] starting 07/04/23. Do not remove or get wet dressing wet.VS qshift - have been stable.Lamar sing to update providers with any acute changes.LA BS ORD FOR 07/04/23 PLACED IN [facility]- not completed reordered for 07/04 [id number] SARAHI MCFARLAND [address] [address] 07/11/2023 08:53:35 07/14/2023 13:06:16 History of hernia repair 6796658122 9109 Z98.890 07/01/23:s/ p repair of incarcerat ed umbilical hernia w/o obstructio n and unilateral inguinal with mesh.post op follow up on 07/11/[address] [place] [address] [place] [facility] [place] starting 07/04/23. Do not remove or get wet dressing wet.VS qshift - have been stable.Lamar sing to update providers with any acute changesPat ient has follow up appt today with surgery. Pain of right calf 32748 92457 587546 M79.661 reports pain with palpation and flexionuna ble to palpate pedal pulse but right foot is warm, no swelling +CMSwill get an ultrasound to rule out DVT. [id number] SARAHI MCFARLAND [address] [address] 07/13/2023 11:25:16 07/15/2023 08:46:50 History of hernia repair 9723807195 9109 Z98.890 07/01/23:s/ p repair of incarcerat ed umbilical hernia w/o obstructio n and unilateral inguinal with mesh.post op follow up on 07/11/[address] [place] [address] outside [facility] umbilical and inguinal starting 07/04/23. Do not remove or get wet dressing wet.VS qshift - have been stable.Lamar sing to update providers with any acute changes. Pain of right calf 79184 92127 292829 M79.661 reports pain with palpation and flexionuna ble to palpate pedal pulse but right foot is warm, no swelling +CMSultras ound to rule out DVT pending. Diabetes mellitus 789601 E11.42 BGLs 300-400swi ll adjust SSC and increase lantus from 25 units to 30 units at [facility] trulicity 0.75 mg weekly-con tinue FS TID and HS [id number] SARAHI MCFARLAND [address] [address] 07/21/2023 09:47:32 07/26/2023 11:58:03 History of hernia repair 9183086552 9109 Z98.890 07/01/23:s/ p repair of incarcerat ed umbilical hernia w/o obstructio n and unilateral inguinal with mesh. et.continu e to be stable post op.Nursing to update providers with any acute changes. Pain of right calf 51207 39720 122254 M79.661 ultrasound negativept encouraged OOB for postional changes and increase circulatio ncontinue tylenol 975 mg TID and prn tramadol Diabetes mellitus 154974 E11.42 BGLs have improved from 400 but continues to be high 200- 300swill adjust SSC and increase lantus from 30 units to 35 units at [facility] trulicity 0.75 mg weekly-con tinue FS TID and HS [id number] SARAHI MCFARLAND [address] [address] 07/25/2023 12:18:50 08/01/2023 14:06:31 History of hernia repair 1611908313 9109 Z98.890 07/24: continue to have some discomfort at incisional site, we discussed this is normal and can last for a few weeks or even months. There is no redness, swelling or warmth.s/p repair of incarcerat ed umbilical hernia w/o obstructio n and unilateral inguinal with mesh. et.continu e to be stable post op.Nursing to update providers with any acute changes. Diabetes mellitus 639223 09 E11.42 BGLS appeared to have improved for a few days. Morning BGL better but afternoon and evening continues to be high, nursing reports that she eats a lot of candy bought in by visitor. will educated on next visit.will adjust lispro SSC and revisit BGL later this week.connie nue trulicity 0.75 mg weekly-con tinue FS TID and HS [id number] SARAHI MCFARLAND [address] [place] [address] 08/02/2023 10:29:45 08/05/2023 08:38:11 History of hernia repair 9805463560 9109 Z98.890 s/p repair of incarcerat ed umbilical hernia w/o obstructio n and unilateral inguinal with mesh. et.continu e to be stable post op.surgica l incisions now healedNurs ing to update providers with any acute changes. Diabetes mellitus 961584 09 E11.42 blood sugars have improved but continue to have bgl in the 300s.-lant us increased to 40 units hscontinue Lispro SSCcontinu e trulicity 0.75 mg weekly-con tinue FS TID and HS Asthma 720333802 J45.30 breathing has been easy and unlabored. singulair 10 mg qdalbutero l MDI 2 puffs q 4 hrs prn.Monito r resp. status Chronic ki dney disease stage 3A 109223689 N18.31 5 last Bun 38-Cr 1.6continu e to avoid nephrotoxi ns Chronic ob structive pulmonary disease 20375269 J41.0 Continue singulair 10 mg qd and albuterol MDI 2 puffs q 4 hrs prn. Depressive disorder 4318 9007 F32.A lexapro 5 mg daily-incr ease to 10 mgpsych prn [id number] MD GENARO Panda [address] [place] [address] 10/07/2023 17:24:57 11/28/2023 13:46:23 Diabetes mellitus 52994781 E11.42 HgA1C 7.8 in 06/2023.Sug ars remain too high most of the jose, often>300C ontinue victoza 1.8 mg qd, lantus 25U qd, and SSI.Monito r accuchecks TID.Consid er increase of lantus. Asthenia 79939521 R53.81 Staff continues to encourage pt to get up to activities .Tonight I reminded her that getting up helps her feel better.Mon itor Anxiety 66486559 F41.1 Mood down tonightCon tinue escitalopr am 10 mg qd and clonazepam 0.5 mg qhs.Monito r mood.Psych following. Chronic ob structive pulmonary disease 63809190 J41.0 No current sxs.Contin ue singulair 10 mg qd and albuterol MDI 2 puffs q 4 hrs prn.Monito r resp. status Falls 748534136 R29.6 Continues to be brody dependent. Continue fall precaution s.Monitor for safety. Chronic ki dney disease stage 3A 947036180 N18.31 Last labs in 06/2023, stable.Con tinue to avoid nephrotoxi c meds as able.Renal f/u as planned.Co ntinue to monitor q 3 months. Chronic pain 99546166 G8 9.29 With continued neuropathy pain, already on max dose of gabapentin .Trouble sleeping due to pain.Will schedule tramadol 50 mg qhs and make prn dose 50 mg BID prn.Contin ue gabapentin 800 mg QID and APAP 650 mg q 6 hrs prnMonitor sxs. Essential hypertension 53938389 I10 Remains in good control on furosemide 40 mg qdMonitor BP and labs. Chronic constipation 236 735159 K59.09 Continue bowel meds as ordered.Mo nitor bowel function. [id number] SARAHI MCFARLAND [address] [place] [address] 10/12/2023 10:09:52 10/14/2023 10:23:32 Depressive disorder 42843626 F32.A reports fatigue and low energy.see n by adjunct psychology faculty member 10/09per psych recommenda tion will decrease clonazepam from 0.5 to 0.25 mg at bedtimecon tinue lexapro 10 mg daily [id number] SARAHI MCFARLAND [address] [address] 11/28/2023 08:41:33 11/29/2023 11:39:06 Diabetes mellitus 00956197 E11.42 FS wax and wane to low 300scontin ue Lispro SSCcontinu e trulicity 1.5 mg weekly-cailin tus 40 units hscontinue FS TID and HS Asthma 401154558 J45.30 breathing has been easy and unlabored. singulair 10 mg qdalbutero l MDI 2 puffs q 4 hrs prn.Monito r resp. status Chronic ki dney disease stage 3A 526768319 N18.31 continue to avoid nephrotoxi ns Chronic ob structive pulmonary disease 15748740 J41.0 Continue singulair 10 mg qd and albuterol MDI 2 puffs q 4 hrs prn. Depressive disorder 3548 9007 F32.A continue clonazepam from 0.25 mg at bedtimecon tinue lexapro 10 mg dailyMonit or mood for changes with behaviors. psych prn [id number] SARAHI MCFARLAND [address] [address] 01/12/2024 10:51:05 01/18/2024 12:03:17 Diabetes mellitus 93027819 E11.42 FS wax and wane mainly under 200s.connie nue Lispro SSCcontinu e trulicity 1.5 mg weekly-cailin tus 40 units hs - consider titratingc ontinue FS TID and HS Asthma 263165522 J45.30 breathing has been easy and unlabored. singulair 10 mg qdalbutero l MDI 2 puffs q 4 hrs prn.Monito r resp. status Chronic ki dney disease stage 3A 012175144 N18.31 continue to avoid nephrotoxi ns Chronic ob structive pulmonary disease 42316247 J41.0 Continue singulair 10 mg qd and albuterol MDI 2 puffs q 4 hrs prn. Depressive disorder 3548 9007 F32.A continue clonazepam from 0.25 mg at bedtimecon tinue lexapro 10 mg dailyMonit or mood for changes with behaviors. psych prn Anxiety 49221394 F41.1 Continue escitalopr am 10 mg qd and clonazepam 0.5 mg qhs. Chronic pain 52970438 G8 9.29 Continue gabapentin 800 mg QID, tramadol 50 mg TID and APAP 650 mg q 6 hrs prnMonitor sxs. Essential hypertension 74937489 I10 Remains in good control on furosemide 40 mg qdMonitor BP and labs. [id number] SARAHI MCFARLAND [address] [place] [address] 02/20/2024 15:10:23 02/21/2024 13:53:21 Bilateral lower leg edema 593991590 R60.0 trace amount;mos t likely dependent. patient rarely gets OOB.encour aged to elevated legs on pillowsden ies any discomfort , VSSdiscuss ed with nursing ,no need for diureticnu rsing to update provider with worsening sx. Health Concerns Section Related Observation LastModified by Organization Detai ls LastModified Time None Recorded Concern Status LastModified by Organization Details LastModified Time None Recorded Advance Directives Directive Y: Payers Encounter Date Sequence Insurance Name Policy Number Policy Manuel Covered Member ID Manuel Member ID Guarantor Name 10/07/2023 2 [place] Melissa E Colon [id number] Melissa Colon 10/07/2023 1 [place] [employer] Melissa E Colon [id number] Melissa Colon 10/12/2023 2 [place] Melissa E Colon [id number] Melissa Colon 10/12/2023 1 [place] [employer] Melissa E Colon [id number] Melissa Colon 11/28/2023 2 [place] Melissa E Colon [id number] Melissa Colon 11/28/2023 1 [place] [employer] Melissa E Colon [id number] Melissa Colon 01/12/2024 2 [place] Melissa E Colon [id number] Melissa Colon 01/12/2024 1 [place] [employer] Melissa E Colon [id number] Melissa Colon 02/20/2024 2 [place] [facility] Melissa E Colon [id number] Melissa Colon 02/20/2024 1 [place] [facility] Melissa E Colon [id number] Melissa Colon Notes Date Note Type Note Provider Name and Address Organization Details Recorded Time 10/07/2023 text/html This is a 78 yo woman, LTC resident, who I am seeing today for a routine MD rounding visit.Tonight she is in bed, says she's ok, but seems a little down. She says her neuropathy is stll bad.Nursing has no concerns.Her PMH includes HTN, AODM, asthma/COPD, hx of EtOH abuse, chronic liver disease, constipation, depression with anxiety, gout, hair loss, HLD, lumbar DDD, OA, neuropathy, and HLD. Tami Koroma MD [address] [place] [address], [address], [place], [address], [facility] 11/27/2023 16:12:00 10/12/2023 text/html Patient is a 77 yr old female with PMH includes HTN, AODM, asthma/COPD, hx of EtOH abuse, chronic liver disease, constipation, depression with anxiety, gout, hair loss, HLD, lumbar DDD, OA, neuropathy, and HLD. Seen for acute rounding visit.on exam she is stable, she often refuses OOB and prefers to stay in bed, does not participate in activities. she reports decreased energy and fatigue.she is followed by [facility] for medication management. new recommendation discussed, patient in agreeement. SARAHI MCFARLAND [address] [facility], [address], [place], [address], [facility] 10/12/2023 12:42:33 11/28/2023 text/html Patient is a 77 yr old female with PMH includes HTN, AODM, asthma/COPD, hx of EtOH abuse, chronic liver disease, constipation, depression with anxiety, gout, hair loss, HLD, lumbar DDD, OA, neuropathy, and HLD. Patient had been experiencing abdominal discomfort for months, she was found to have an anterior abdominal wall hernia by ultrasound on 04/01/23 Results:possible 5 mm defect in the anterior abdominal wall. She had an appointment with GI nehemiah 05/26/23 and was scheduled for surgery with GI for 07/01/23. Patient seen today for routine rounding visit. She is stable at her baseline, there is NAD. She is dependent on staff to assist with ADL needs. She has been getting OOB a few times a week. There is no acute nursing concerns. SARAHI MCFARLAND [address] [facility], [address], [place], [address], [facility] 11/28/2023 12:17:26 01/12/2024 text/html Patient is a 77 yr old female LTC resident due for annual exam. she has a past medical hx of HTN, AODM, asthma/COPD, hx of EtOH abuse, chronic liver disease, constipation, depression with anxiety, gout, hair loss, HLD, lumbar DDD, OA, neuropathy, and HLD. Initially admitted to 02/2018 after ACS rule out for chest pain. She is at her baseline in NAD. occasionally gets OOB for meals and recreational activities, she prefers to stay in her room most days. She is eating and drinking ok, no issues with elimination, compliant with meds. There has been no recent acute events, nursing has non acute concerns SARAHI MCFARLAND [address] [facility], [address], [place], [address], [facility] 01/17/2024 23:16:20 02/20/2024 text/html This is a 78 yr old female resident seen today for acute routine rounding vist per nursing request for bilateral lower extremity edema. Patient is seen lying in bed, she is at her baseline in NAD. BLE edema noted at usually baseline with trace edema, most likely due to dependent edema ,she refuses to get OOB on most days. She tells me that she is doing ok. There are no other acute nursing concerns. SARAHI MCFARLAND [address] [facility], [address], [place], [address], [facility] 02/20/2024 15:33:09 OBGyn Episode No OBEpisode recorded.
--- OUTSIDE RECORDS SUMMARY | 2024-03-19 06:10 | XMS_ITS | Continuity of Care Document ---
Author Organization [facility] Address [address] [place] [address] Care Team Providers Care Mailer Name Role Phone SARAH MELENDEZ Primary Care Provider GENARO HONEYCUTT 3RD FLOOR OTHER Assessment No assessment recorded. Plan of Treatment Reminders Order Date Submit Date Provider Last Modified By Organization Details Last Modified Time Details Appointments None record ed. Lab None record ed. Referral None record ed. Procedures None record ed. Surgeries None record ed. Imaging None record ed. Medication Orders None record ed. Patient TargetsNo targets recorded. Patient InstructionsNo instructions recorded. Reason for Referral None Reported. Problems Name Problem SNOMED Code Status Onset Date Resolution Date Notes Provider Name and Address Organization Details Recorded Time Falls 329033297 Active 2020 JAREK DONOHUE, PAPER SLITTER [address], [address], [place], [address], [facility] 12:59:57 Muscle weakness 07248609 Active 2020 JAREK DONOHUE, PAPER SLITTER [address], [address], [place], [address], [facility] 13:23:00 Hyperlipide manuelito 80909380 Active 2020 JAREK CHARANJIT, PAPER SLITTER [address], [address], [place], [address], [facility] 13:27:57 Anxiety 20229538 Active 2020 JAREK CHARANJIT, PAPER SLITTER [address], [address], [place], [address], [facility] 13:29:56 Osteoporosi s 38134325 Active 2020 Tami Koroma MD [address], [address], [place], [address], [facility] 1 22:38:51 Paresthesia of hand 324404096 Active 2020 Tami Koroma MD [address], [address], [place], [address], [facility] 1 22:49:02 Pain in right hip joint 4976035612263 02 Active 2021 Tami Koroma MD [address], [address], [place], [address], [facility] 2 20:36:19 Pain of right ankle joint 2233161746505 9106 Active 2021 Tami Koroma MD [address], [address], [place], [address], [facility] 2 20:36:23 SARS-CoV-2 Active 2021 JAREK DONOHUE NP [address], [address], [place], [address], [facility] 2 14:11:45 Chronic kidney disease stage 3A 046652968 Active 2021 Denis Andino MD [address], [address], [place], [address], [facility] 2 12:01:34 Edema of lower extremity 431027217 Active 2021 JAREK DONOHUE, STEPHY [address], [address], [place], [address], [facility] 2 13:53:14 Cellulitis of foot 464662715 Active 2021 JAREK DONOHUE, PAPER SLITTER [address], [address], [place], [address], [facility] 2 14:35:54 Peripheral vascular disease 948040371 Active 2021 JAREK DONOHUE, PAPER SLITTER [address], [address], [place], [address], [facility] 2 13:11:46 Pain of left wrist 1225742984672 02 Active 2021 JAREK DONOHUE NP [address], [address], [place], [address], [facility] 2 13:23:39 Depressive disorder 58483474 Active 2022 JAREK DONOHUE NP [address], [address], [place], [address], [facility] 3 10:49:37 Pain in coccyx 30399489 Active 2022 JAREK DONOHUE NP [address], [address], [place], [address], [facility] 3 14:00:08 Acute kidney injury 72712784 Active 2022 Lamar Pickett NP [address], [address], [place], [address], [facility] 3 11:30:14 Hyperkalemi a 16661875 Active 2022 Lamar Pickett NP [address], [address], [place], [address], [facility] 3 11:39:22 Normal grief reaction 389145647 Active 2022 JAREK DONOHUE NP [address], [address], [place], [address], [facility] 3 13:03:50 History of hernia repair 3510201987321 9 Active 2023 SARAHI MCFARLAND [address], [address], [place], [address], [facility] 4 17:36:19 Chronic pain 66054368 Active 2018 Denis Andino MD [address], [address], [place], [address], [facility] 9 11:58:23 Chronic obstructive pulmonary disease 57443174 Active 2018 Denis Andino MD [address], [address], [place], [address], [facility] 9 11:58:30 Asthma 004915555 Active 2018 Denis Andino MD [address] [facility], [address], [place], [address], [facility] 9 11:58:36 Osteoarthri tis 532751695 Active 2018 Denis Andino MD [address] [facility], [address], [place], [address], [facility] 9 11:58:52 Diabetes mellitus 02205530 Active 2018 Denis Andino MD [address] [facility], [address], [place], [address], [facility] 9 11:59:04 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 2018 Denis Andino MD [address] [facility], [address], [place], [address], [facility] 9 11:59:22 Essential hypertensio n 62998800 Active 2018 Denis Andino MD [address] [facility], [address], [place], [address], [facility] 9 12:02:34 Gout 58419757 Active 2018 Denis Andino MD [address] [facility], [address], [place], [address], [facility] 9 12:02:51 Notes:Some problems listed i n Documents: #[id number], #[id number], #[id number], #[id number], #[id number] could not be added to this patient's [...] Avai lable Vitals Date Recorded Body height Heart rate Respiratory rate Body temperature Systolic blood pressure Diastolic blood pressure Provider Name and Address Organization Details Last Updated DateTime 4 157.48 cm 68 /min 18 /min 97.5 [degF] 130 mm[Hg] 70 mm[Hg] SARAHI MCFARLAND [address] [facility], [address], [place], [address], [facility] 4 15:16:18 Social History Question Answer Notes LastModified by Organizat ion Details LastModified Time Tobacco Smoking Status Former Smoker smoked 2 ppd until 10 yrs ago. Tami Koroma MD [address] [facility], [address], [place], [address], [facility] 12/28/2020 21:43:37 Do You Have An Advance Directive? Yes Information not available 12/24/2020 What Is Your Level Of Alcohol Consumption? None Hx Of Heavy Use Information not available 12/28/2020 What Is Your Code Status? Full Code Information not available 12/24/2020 Where Do You Live? [facility] [place] Information not available 09/20/2022 Legal Guardian? No Informati on not available 12/28/2020 Do You Have A Medical Power Of Sheet Metal Insulator? Yes Information not available 12/28/2020 What Was The [...] Many Years Have You Smoked Tobacco? 25 [id number] Information not available 12/18/2019 Do You Or [...] mcg/0.3 mL dose 1 completed Laisha Ash [facility] 03/18/2021 12:20:45 COVID-19, mRNA, LNP-S, PF, 30 mcg/0.3 mL dose 1 completed Laisha Ash [facility] 03/18/2021 12:20:49 Influenza, split virus, quadrivalent, preservative 2 completed Seema batres, [facility] 12/16/2021 13:31:41 Influenza, adjuvanted, quadrivalent, PF 3 completed Erendira batres, [facility] 03/10/2023 12:24:16 Past Encounters Encounter ID Performer Location Encounter Start Date Encounter Closed Date Diagnosis/Indication Diagnosis SNOMED-CT Code Diagnosis ICD10 Code Diagnosis Note [id number] SARAHI MCFARLAND [address] [facility] [place] [address] 02/20/2024 15:10:23 02/21/2024 13:53:21 Bilateral lower leg edema 596843741 R60.0 trace amount;mos t likely dependent. patient rarely gets OOB.encour aged to elevated legs on pillowsden ies any discomfort , VSSdiscuss ed with nursing ,no need for diureticnu rsing to update provider with worsening sx. Health Concerns Section Related Observation LastModified by Organization Detai ls LastModified Time None Recorded Concern Status LastModified by Organization Details LastModified Time None Recorded Payers Encounter Date Sequence Insurance Name Policy Number Policy Manuel Covered Member ID Manuel Member ID Guarantor Name 02/20/2024 2 [place] Melissa E Colon [id number] Melissa Colon 02/20/2024 1 MEDICARE B-[place]: [facility] [employer] Melissa E Colon [id number] Melissa Colon Notes Date Note Type Note Provider Name and Address Organization Details Recorded Time 02/20/2024 text/html This is a 78 yr [...] other acute nursing concerns. SARAHI MCFARLAND [address] [facility], [address], [place], [address], [facility] [email or web address] 02/20/2024 15:33:09 OBGyn Episode No OBEpisode recorded.
--- OUTSIDE RECORDS SUMMARY | 2024-03-19 06:10 | XMS_ITS | Clinical Summary ---
Author Organization [facility] Address [address] [place] [address] [address] [place] [address] Phone Care Team Providers Care Director Child Abuse Therapy Name Role Phone Rossi Montiel MD Primary Care Provider [phone] Allergies Active Allergy Reactions Criticality Noted Date Comments Angiotensin 06/16/2022 Medications allopurinol (ZYLOPRIM) 100 MG tablet Take 50 tablets by mouth 1 (one) time each day Active atorvastatin (LIPITOR) 20 MG tablet Take 1 tablet by mouth 1 (one) time each day Active calcium carbonate-vitam in D 600-400 MG-UNIT per tablet Take 1 tablet by mouth in the morning and 1 tablet in the evening. Active clonazePAM (KlonoPIN) 0.5 MG tablet Take 1 tablet by mouth every night Active colchicine 0.6 MG tablet Take 1 tablet by mouth 1 (one) time each day Active docusate sodium (COLACE) 100 MG capsule Take 1 capsule by mouth 2 (two) times a day Active furosemide (LASIX) 20 MG tablet Take 40 mg by mouth 1 (one) time each day Active gabapentin (NEURONTIN) 800 MG tablet Take 1 tablet by mouth every 6 (six) hours Active insulin glargine (Lantus SoloStar) 100 UNIT/ML injection 0.75 mL Active liraglutide (Victoza) 18 MG/3ML injection Active montelukast (SINGULAIR) 10 MG tablet Take 1 tablet by mouth at bed time Active traMADol (ULTRAM) 50 MG tablet Take 1 tablet by mouth 3 (three) times a day Active metoclopramide (REGLAN) 5 MG tablet Take 5 mg by mouth in the morning and 5 mg in the evening and 5 mg before bedtime. Active escitalopram (LEXAPRO) 5 MG tablet Take 10 mg by mouth 1 (one) time each day Active acetaminophen (TYLENOL) 325 MG tablet Take 650 mg by mouth every 6 (six) hours if needed for mild pain Active ferrous sulfate 325 (65 Fe) MG tablet Take 325 mg by mouth 1 (one) time each day with breakfast Active magnesium hydroxide (MILK OF MAGNESIA) 400 MG/5ML suspension Take by mouth 1 (one) time each day if needed for constipation Active Albuterol Sulfate 108 (90 Base) MCG/ACT aerosol powder Inhale Activ e insulin aspart protamine-insul in aspart (NovoLOG 70/30) (70-30) 100 UNIT/ML injection Inject under the skin Active Active Problems Problem Noted Date Diagnosed Date Stage 3a chronic kidney disease 10/06/2022 Acute nontraumatic kidney injury 06/16/2022 Stage 3b chronic kidney disease 06/16/2022 Benign essential hypertension 07/23/2020 Hyperkalemia 07/23/2020 Proteinuria 07/23/2020 Renal disorder due to type 2 diabetes mellitus 0 07/23/2020 Immunizations Name Administration Dates Next Due Influenza Vaccine, Quadrivalent, Adjuvanted 08/2022 Influenza, Quadrivalent, With Preservative 12/09 Pfizer SARS-COV-2 05/21/2020,04/21/2020 Family History Medical History Relation Comments Kidney disease Father Cancer Mother Diabetes Mother Heart disease Mother Hypertension Mother Stroke Mother Cancer Sibling Relation Status Comments Father Mother Sibling Social History Tobacco Use Types Packs/Day Years Used Date Smoking Tobacco: Former Smokeless Tobacco: Never Tobacco Cessation:Counseling Given: Not Answered Alcohol Use Standard Drinks/Week Comments No 0 (1 standard drink = 0.6 oz pur e alcohol) Comments Unknown Sex and Gender Information Value Date Recorded Sex Assigned at Not on file Legal Sex Female 5:08 PM EST Gender Identity Not on file Sexual Orientation Not on file Last Filed Vital Signs Vital Sign Reading Time Taken Comments Blood Pressure 122/67 08/16/2023 2:46 PM EDT Pulse 74 08/16/2023 2:46 PM EDT Temperature - - Respiratory Rate - - Oxygen Saturation 97% 12/07/2022 9:14 AM EDT Inhaled Oxygen Concentration - - Weight 83.5 kg (184 lb) 08/16/2023 2:46 PM EDT Height 160 cm (5' 3 ) 07/04/2019 12:00 PM EDT Body Mass Index 32.59 07/04/2019 12:00 PM EDT Plan of Treatment Upcoming Encounters Date Type Department Care Team (Late st Contact Info) Description 06/21/2024 3:00 PM EDT Office Visit [facility] [address] [place] [address] Rhett Dai MD [address] [facility] [address] [place] [address] Health Maintenance Due Date Last Done Comments Pneumococcal Vaccine: 65+ Years (1 of 2 - PCV) 1951 Diabetes: Hemoglobin A1C 03/24/2020 Diabetes: Ophthalmology Exam 03/24/2020 Diabetes: Pedal Pulse Checked 03/24/2020 Diabetes: Sensory Foot Exam 03/24/2020 Diabetes: Visual Foot Exam 03/24/2020 Influenza Vaccine (#1) 2023 3, 12/09/2021 Hepatitis B Vaccine Aged Out No longe r eligible based on patient's age to complete this topic Insurance [place] Care Teams Director Child Abuse Therapy Relationship Specialty Start Date End Date Rossi Montiel MD [address] [place], [place] PCP - General 03/03/20
[2024-03-19 07:15] LABS: Uric Acid 7.4 mg/dL (2.4-5.7)
== END 2024-03-19 06:08 | disposition home or self-care (01) ==
LOC: HO.MMNH3L 06:07
PROVIDERS: Visit Provider Family Medicine
DX: M10.9 Gout, unspecified (principal)
CPT/HCPCS: 36415; 84550

== ENCOUNTER 2024-04-13 05:38 | Outpatient (REF) | payer MEDICARE, MEDICAID, SELFPAY ==
[2024-04-13 06:23] LABS: Appearance Urine Clear; Color Urine Yellow; Glucose Urine UA 500 mg/dL (Negative); Leukocyte Esterase Urine Negative (Negative); Nitrite Urine Positive (Negative); UMIC TRIGGER UA YES; Urine Blood Small (1+) (Negative); Urine Ketones Negative (Negative); Urine Protein 300 (3+) mg/dL (Neg-Trace)
[2024-04-13 06:28] LABS: Alanine Aminotransferase 15 U/L (0-31); Albumin Level 2.8 g/dL (3.5-5.0); Alkaline Phosphatase 54 U/L (39-117); Anion Gap 9 (12-20); Aspartate Amino Transferase 25 U/L (5-31); Bilirubin Total 0.4 mg/dL (0.0-1.0); Blood Urea Nitrogen 38 mg/dL (9-16); Calcium 8.9 mg/dL (8.4-10.2); Carbon Dioxide 28 mmol/L (22-29); Chloride 112 mmol/L (96-108); Estimated Glomerular Filt Rate 27; Glucose Random 72 mg/dL (60-115); Potassium 4.4 mmol/L (3.3-5.1); Sodium 145 mmol/L (135-145); Total Protein 5.8 g/dL (6.5-8.0); Uric Acid 7.2 mg/dL (2.4-5.7)
[2024-04-13 06:34] LABS: Bacteria Urine None Seen (None Seen); Other Crystals Urine Present; RBC Urine 0-2 /HPF (0-2); Squamous Epithelial Cell Urine 0-2 /HPF (0-2)
[2024-04-13 06:43] LABS: Influenza A PCR NEGATIVE (Negative); Influenza B PCR NEGATIVE (Negative); Resp Syncy Virus RNA Qual PCR NEGATIVE (Negative); SARS COV2 PCR INHOUSE NEGATIVE (Negative)
== END 2024-04-13 05:39 | disposition home or self-care (01) ==
LOC: HO.MMNH3L 05:38
PROVIDERS: Visit Provider Family Medicine
DX: E11.42 Type 2 diabetes mellitus with diabetic polyneuropathy (principal)
CPT/HCPCS: 0241U; 36415; 80053; 81001; 84550; 87086; 87088; 87186

== ENCOUNTER 2024-04-23 06:11 | Outpatient (REF) | payer MEDICARE, MEDICAID, SELFPAY ==
[2024-04-23 06:15] LABS: MANUAL DIFF FLAG NO
[2024-04-23 06:44] LABS: Basophils Percent Auto 0.7 % (0-2); Eosinophils Absolute Auto 0.4 X10*3/uL (0.0-0.4); Eosinophils Percent Auto 7.3 % (0-4); Hemoglobin 10.4 g/dl (12.0-16.0); Imm Gran Abs Auto 0.01 X10*3/uL (0.00-0.03); Imm Gran Pct Auto 0.2 % (0.0-0.4); Lymphocytes Absolute Auto 1.3 X10*3/uL (1.2-4.9); Lymphocytes Percent Auto 23.6 % (20-40); Mean Corpuscular HGB Conc 32.5 g/dl (31.0-35.0); Mean Corpuscular Hemoglobin 30.2 pg (27.0-33.0); Mean Platelet Volume 8.9 fL (9.4-12.3); Monocytes Absolute Auto 0.6 X10*3/uL (0.1-1.2); Monocytes Percent Auto 10.7 % (2-11); Neutrophils Absolute Auto 3.1 x10*3/uL (2.0-8.3); Neutrophils Percent Auto 57.5 % (45-73); Platelet Count 105 X10*3/uL (160-400); Red Blood Count 3.44 X10*6/uL (4.20-5.50); Red Cell Distribution Width 13.2 % (11.0-16.0); White Blood Count 5.4 X10*3/uL (4.8-10.8)
[2024-04-23 07:02] LABS: Anion Gap 11 (12-20); Blood Urea Nitrogen 33 mg/dL (9-16); Calcium 8.7 mg/dL (8.4-10.2); Carbon Dioxide 26 mmol/L (22-29); Chloride 111 mmol/L (96-108); Estimated Glomerular Filt Rate 26; Glucose Random 96 mg/dL (60-115); Potassium 4.6 mmol/L (3.3-5.1); Sodium 143 mmol/L (135-145); Uric Acid 5.2 mg/dL (2.4-5.7)
[2024-04-24 07:23] LABS: Estimated Average Glucose 169 mg/dL; Hemoglobin A1C 161.6207 umol/L; Hemoglobin A1c % 7.5 % (<6.0); Total Hemoglobin (HGBA1C) 2764.9241 umol/L
== END 2024-04-23 06:12 | disposition home or self-care (01) ==
LOC: HO.MMNH3L 06:11
PROVIDERS: Visit Provider Family Medicine
DX: M10.9 Gout, unspecified (principal); N39.0 Urinary tract infection, site not specified; Z13.1 Encounter for screening for diabetes mellitus
CPT/HCPCS: 36415; 80048; 83036; 84550; 85025

== ENCOUNTER 2024-05-24 05:37 | Outpatient (REF) | payer MEDICARE, MEDICAID, SELFPAY ==
[2024-05-24 05:40] LABS: MANUAL DIFF FLAG NO
[2024-05-24 06:10] LABS: Basophils Percent Auto 0.7 % (0-2); Eosinophils Absolute Auto 0.4 X10*3/uL (0.0-0.4); Eosinophils Percent Auto 7.4 % (0-4); Hematocrit 31.6 % (37.0-47.0); Hemoglobin 10.3 g/dl (12.0-16.0); Imm Gran Abs Auto 0.02 X10*3/uL (0.00-0.03); Imm Gran Pct Auto 0.3 % (0.0-0.4); Lymphocytes Absolute Auto 1.3 X10*3/uL (1.2-4.9); Lymphocytes Percent Auto 21.6 % (20-40); Mean Corpuscular HGB Conc 32.6 g/dl (31.0-35.0); Mean Corpuscular Hemoglobin 30.6 pg (27.0-33.0); Mean Corpuscular Volume 93.8 fL (80.0-98.0); Mean Platelet Volume 9.2 fL (9.4-12.3); Monocytes Absolute Auto 0.5 X10*3/uL (0.1-1.2); Monocytes Percent Auto 8.4 % (2-11); Neutrophils Absolute Auto 3.6 x10*3/uL (2.0-8.3); Neutrophils Percent Auto 61.6 % (45-73); Platelet Count 117 X10*3/uL (160-400); Red Blood Count 3.37 X10*6/uL (4.20-5.50); Red Cell Distribution Width 13.7 % (11.0-16.0); White Blood Count 5.8 X10*3/uL (4.8-10.8)
[2024-05-24 06:11] LABS: Anion Gap 9 (12-20); Blood Urea Nitrogen 43 mg/dL (9-16); Calcium 8.5 mg/dL (8.4-10.2); Carbon Dioxide 25 mmol/L (22-29); Chloride 113 mmol/L (96-108); Estimated Glomerular Filt Rate 28; Glucose Random 70 mg/dL (60-115); Potassium 4.4 mmol/L (3.3-5.1); Sodium 143 mmol/L (135-145)
== END 2024-05-24 05:38 | disposition home or self-care (01) ==
LOC: HO.MMNH3L 05:37
PROVIDERS: Visit Provider Family Medicine
DX: I10 Essential (primary) hypertension (principal)
CPT/HCPCS: 36415; 80048; 85025

== ENCOUNTER 2024-06-04 05:46 | Outpatient (REF) | payer MEDICARE, MEDICAID, SELFPAY ==
[2024-06-04 05:37] LABS: MANUAL DIFF FLAG NO
--- OUTSIDE RECORDS SUMMARY | 2024-06-04 06:02 | XMS_ITS | Data Portability ---
Author Organization [facility], Main Office Address [address] [place] [address] Care Team Providers Care Assigner Name Role Phone SARAH MELENDEZ Primary Care Provider [facility] 3RD FLOOR OTHER [phone] Assessment No assessment recorded. Plan of Treatment [...] and Address Organization Details Recorded Time Falls [id number] Active 2020 JAREK DONOHUE, PRODUCTION ADMINISTRATOR [address] [facility] [address], [address], [place], [address], [facility] [place] 12:59:57 Muscle weakness 24298846 Active 2020 JAREK DONOHUE, PRODUCTION ADMINISTRATOR [address] [facility] [address], [address], [place], [address], [facility] 13:23:00 Hyperlipide manuelito 49678337 Active 2020 JAREK CHARANJIT, PRODUCTION ADMINISTRATOR [address] [facility] [address], [address], [place], [address], [facility] [place] 13:27:57 Anxiety 66153191 Active 2020 JAREK GRIPESTEBAN, PRODUCTION ADMINISTRATOR [address], [address], [place], [address], [facility] [place] 13:29:56 Osteoporosi s 81348629 Active 2020 Tami Koroma MD [address], [address], [place], [address], [place] [facility] 1 22:38:51 Paresthesia of hand 928005412 Active 2020 Tami Koroma MD [address], [address], [place], [address], [facility] 1 22:49:02 Pain in right hip joint 9892314350781 02 Active 2021 Tami Koroma MD [address], [address], [place], [address], [facility] 2 20:36:19 Pain of right ankle joint 1637858812545 9106 Active 2021 Tami Koroma MD [address], [address], [place], [address], [facility] 2 20:36:23 SARS-CoV-2 Active 2021 JAREK DONOHUE, PRODUCTION ADMINISTRATOR [address], [place], [address], [facility] 2 14:11:45 Chronic kidney disease stage 3A 680022320 Active 2021 Denis Andino MD [address], [address], [place], [address], [facility] 2 12:01:34 Edema of lower extremity 854828598 Active 2021 JAREK DONOHUE, PRODUCTION ADMINISTRATOR [address], [address], [place], [address], [facility] 2 13:53:14 Cellulitis of foot 908003435 Active 2021 JAREK CHARANJIT, PRODUCTION ADMINISTRATOR [address], [place], [address], [facility] 2 14:35:54 Peripheral vascular disease 719617182 Active 2021 JAREK CHARANJIT, PRODUCTION ADMINISTRATOR [address], [place], [address], [facility] 2 13:11:46 Pain of left wrist 6721914194264 02 Active 2021 JAREK GRIPPIN, PRODUCTION ADMINISTRATOR [address], [place], [address], [facility] 2 13:23:39 Depressive disorder 26436704 Active 2022 JAREK DONOHUE NP [address], [address], [place], [address], [facility] 3 10:49:37 Pain in coccyx 61180993 Active 2022 JAREK DONOHUE NP [address], [address], [place], [address], [facility] 3 14:00:08 Acute kidney injury 47546764 Active 2022 Lamar Pickett NP [address], [address], [place], [address], [facility] 3 11:30:14 Hyperkalemi a 87227132 Active 2022 Lamar Pickett NP [address] [facility] [address] [facility] [facility], [address], [place], [address], [facility] 3 11:39:22 Normal grief reaction 495959756 Active 2022 JAREK DONOHUE NP [address], [address], [place], [address], [facility] 3 13:03:50 History of hernia repair 1344017704430 9 Active 2023 SARAHI MCFARLAND [address], [place], [address], [facility] 4 17:36:19 Chronic pain 94907171 Active 2018 Denis Andino MD [address], [place], [address], [facility] 9 11:58:23 Chronic obstructive pulmonary disease 43894432 Active 2018 Denis Andino MD [address], [place], [address], [facility] 9 11:58:30 Asthma 405623057 Active 2018 Denis Andino MD [address] [facility] [address], [address], [place], [address], [facility] 9 11:58:36 Osteoarthri tis 191941369 Active 2018 Denis Andino MD [address], [address], [place], [address], [facility] 9 11:58:52 Diabetes mellitus 83647307 Active 2018 Denis Andino MD 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 [facility], [address], [place], [address], [facility] 9 11:59:22 Essential hypertensio n 40351470 Active 2018 Denis Andino MD [address], [address], [place], [address], [facility] 9 12:02:34 Gout 67286165 Active 2018 Denis Andino MD [address] [facility] [address], [address], [place], [address], [facility] 9 12:02:51 Notes:Some problems listed i n Documents: #[id number], #[id number], #[id number], #[id number], #[id number], #[id number] could not be added to this patient's [...] 130 mm[Hg] 70 mm[Hg] SARAHI MCFARLAND [address] [facility] [address], [place], [address], [facility] 4 15:16:18 Date Recorded Body height Heart rate Body temperature Respiratory rate Systolic blood pressure Diastolic blood pressure Provider Name and Address Organization Details Last Updated DateTime 5 157.48 cm 76 /min 98 [degF] 18 /min 120 mm[Hg] 70 mm[Hg] SARAHI MCFARLAND [address] [facility] [address], [place], [address], [facility] 5 22:33:58 Date Recorded Body height Heart rate Respiratory rate Body temperature Oxygen saturation Oxygen saturation in Arterial blood by Pulse oximetry Systolic blood pressure Diastolic blood pressure Provider Name and Address Organization Details Last Updated DateTime 5 157.48 cm 72 /min 18 /min 97.8 [degF] 97 % 97 % 136 mm[Hg] 72 mm[Hg] CUONG JONES CNP [address] [facility] [address], [place], [address], [facility] 5 13:37:46 Social History Question Answer Notes LastModified by Organizat ion Details LastModified Time Tobacco Smoking Status Former Smoker smoked 2 ppd until 10 yrs ago. Tami Koroma MD [address] [facility] [facility], [facility] [address], [place], [address], [facility] 12/28/2020 21:43:37 Do You Have An Advance Directive? Yes Information not available 12/24/2020 What Is Your Level Of Alcohol Consumption? None Hx Of Heavy Use Information not available 12/28/2020 What Is Your Code Status? Full Code Information not available 12/24/2020 Where Do You Live? [facility] Information not available 09/20/2022 Legal Guardian? No Informati on not available 12/28/2020 Do You Have A Medical Power Of Medical Record Technician? Yes Information not available 12/28/2020 What Was [...] Many Years Have You Smoked Tobacco? 25 [id number] Information not available 12/18/2019 Do You Or [...] mcg/0.3 mL dose 1 completed Laisha Ash [facility] 03/18/2021 12:20:45 COVID-19, mRNA, LNP-S, PF, 30 mcg/0.3 mL dose 1 completed Laisha Ash [facility], [facility] 03/18/2021 12:20:49 Influenza, split virus, quadrivalent, preservative 2 completed Seema Finnegan [facility], [facility] 12/16/2021 13:31:41 Influenza, adjuvanted, quadrivalent, PF 3 completed Erendira Pathak [facility], [facility] 03/10/2023 12:24:16 Past Encounters Encounter ID Performer Location Encounter Start Date Encounter Closed Date Diagnosis/Indication Diagnosis SNOMED-CT Code Diagnosis ICD10 Code Diagnosis Note [id number] Gina Wiggins [place] [address] [facility] [place] [address] 02/27/2018 08:51:51 03/24/2018 10:48:16 Chest wall pain 168148212 R07.89 ACS ruled out.monito r for sx. Chronic ob structive pulmonary disease 48523404 J44.9 stable, no sx. Continue:s pirivasing ulairalbut jone prn Physical deconditioning 9695348202 9102 R68.89 admit [facility]hab[facility]/OT eval Osteoarthritis 696579191 M19.90 stable, continue:n aproxen bidtylenol prn Fibromyalgia 047358907 M 79.7 stable, chroniclyr icanaproxe ngabapenti ntramadol prn History of benign neoplasm of brain 410309297 Z86.011 unknown disease or dx.will contact pcps office for further info. Essential hypertension 71325691 I10 stable continue:c ozaarlasix ASA Peripheral nerve disease 097028552 G64 stable continue:l yricagabap entintrama dol prn Generalize d anxiety disorder 51308286 F41.1 stableklon opin prn Gout 79077099 M10.9 stable, no sx. Continue:a llopurinol scheduled colchicine scheduled [id number] Denis Andino MD [place] [address] [facility] [place] [address] 03/03/2018 11:49:38 03/24/2018 08:46:23 Atypical chest pain 361897021 R07.89 ruled out for cardiac etiology in [facility] [place] 15654346 R53.1 PT OT eval and treatmonit or fall risk Chronic pain 57105169 G8 9.29 carrying d[facility]ent from [facility] ongabapent in 800 mg qid lyrica 75 mg bidwill d/c lyricamoni tor for sx control Chronic ob structive pulmonary disease 00896296 J41.1 carrying dxdistant hx tobaccomon itor pulmonary status Asthma 857833910 J45.30 monitor for sx Osteoarthritis 551882393 M15.0 chronic painmonito r with lyrica d/c'ed Diabetes mellitus 067849 09 E11.9 metformin 1000 mg bidmonitor blood glucose Gout 02474451 M10.09 colchicine 0.6 mg bidmonitor for sx control Essential hypertension 95464251 I10 cozaar 50 mg qdlasix 20 mg qdstartnor vasc 5 [place] [id number] [address] W[address]ins [address] [place], [place] [address] 03/06/2018 09:10:29 03/24/2018 09:06:35 Atypical chest pain 682530440 R07.89 ruled out for cardiac etiology in [facility] [place] 72379371 R53.1 PT OT eval and treatmonit or fall risk Chronic pain 17403365 G8 9.29 carrying dx- h/o fibromyalg ia, peripheral neuropathy and OA, continuega bapentin 800 mg qidnaproxe ntramadolk lonopin lyrica d/c'd given pt also on jg.monit or for sx control Chronic ob structive pulmonary disease 72202658 J41.1 carrying dxdistant hx tobaccomon itor pulmonary status Asthma 359932981 J45.30 monitor for sx Diabetes mellitus 589547 09 E11.9 metformin 1000 mg bidmonitor blood glucose Gout 59890917 M10.09 on chronic colchicine and allopurino l. unclear if foot pain is gout flare, will check uric acid level. Essential hypertension 25214253 I10 stable,no sx.continu e lasix, cozaar, norvasc. Pain in both feet 384184 7283 1656791 M79.671 M79.672 unclear etiology. joints not warm, swollen, red and pt already on colchicine and allopurino l as well as naproxen, tramadol and gabapentin . check uric acid level along with todays labs that are pending. add lidocaine cream for now to help with pain. [id number] Gina [place] [address] [place] [facility] [address] 03/14/2018 11:25:40 03/24/2018 09:45:28 Pain in both feet 8470101037 1816180 M79.671 M79.672 unclear etiology. joints not warm, swollen, red and pt already on colchicine and allopurino l as well as naproxen, tramadol and gabapentin . uric acid was neg. likely related to her h/o fibromyalg ia and chronic pain. Recc continue current regimen and PT/ wt bearing activity will help as well. has idocaine cream for now to help with pain. Chronic pain 47469586 G8 9.29 carrying dx- h/o fibromyalg ia, peripheral neuropathy and OA, continuega bapentin 800 mg qidnaproxe ntramadolk lonopin lyrica d/c'd given pt also on jg.monit or for sx control Atypical chest pain 1025 16834 R07.89 ruled out for cardiac etiology in [facility] [place] 81421423 R53.1 PT OT eval and treatmonit or fall risk Chronic ob structive pulmonary disease 18102412 J41.1 carrying dxdistant hx tobaccomon itor pulmonary status Asthma 052106298 J45.30 monitor for sx Diabetes mellitus 053391 09 E11.9 metformin 1000 mg bidmonitor blood glucose Essential hypertension 49273363 I10 stable,no sx.continu e lasix, cozaar, norvasc. [id number] Gina Lagos [address] [place] [address] 03/17/2018 11:44:34 03/24/2018 10:22:41 Atypical chest pain 663087419 R07.89 ruled out for cardiac etiology in [facility] [place] 43235869 R53.1 PT OT eval and treatmonit or fall risk Essential hypertension 72183809 I10 stable,no sx.continu e lasix, cozaar, norvasc.in crease norvasc to 10mg/d and monitor. [id number] Gina Lagos [address] [place] [address] 03/23/2018 11:27:44 04/03/2018 12:13:05 Essential hypertension 34502695 I10 stable,no sx.continu e lasix, cozaar, norvasc. Atypical chest pain 1025 99948 R07.89 ruled out for cardiac etiology in hospitalno complaints recently. [place] 93104465 R53.1 completed rehab, ready for d/c home. Chronic ob structive pulmonary disease 49918297 J41.1 carrying dxdistant hx tobaccomon itor pulmonary status Diabetes mellitus 226894 09 E11.9 metformin 1000 mg bidsugars stable here.f/u with pcp after d/c. Chronic pain 69881160 G8 9.29 carrying dx- h/o fibromyalg ia, peripheral neuropathy and OA, continuega bapentin 800 mg qidnaproxe ntramadolk lonopin lyrica d/c'd given pt also on jg.monit or for sx control [id number] STEPHY TRAVIS [address] [facility] [place] [address] 12/23/2020 11:54:48 12/25/2020 15:23:14 Muscle weakness 44786383 M62.81 PT OT eval and treat Asthma 662605770 J45.30 singulair 10 mg dailyalbut jone mdi q4 hr prn Chronic ob structive pulmonary disease 96209425 J41.1 albuterol mdi q4hr prn Chronic pain 75437743 G8 9.29 tramadol 50 mg q6hr prngabapen tin 800 mg qid Diabetes mellitus 476830 09 E11.9 victoza 1.8 mg dailyglarg ine 24 units hsmetformi n 1000 mg bidlispro sliding scale Essential hypertension 23797993 I10 losartan 50 mg dailyspiro nlactone 25 mg dailylasix 20 mg bidmonitor bp Gout 97964562 M10.09 allopurino l 300 mg dailycolch ecine 0.6 mg daily Osteoarthritis 705650468 M15.0 CaD 600/400 dailytrama dol 50 mg q6hr prn Falls 093353675 R29.6 PT OT eval and treatfall precaution sfrequent safety checks Hyperlipidemia 19103572 E78.5 atorvastat in 20 mg daily Anxiety 86882655 F41.9 clonazapam n0.5 mg q12 hr prn [id number] Tami [facility] [address] [place] [address] rd [place] [address] 12/24/2020 19:12:07 12/30/2020 12:30:17 Muscle weakness 40256374 M62.81 Very deconditio john.Needs PT/OT as above.Cont inue fall precaution s.Monitor for safety. Asthma 662336045 J45.30 No current sxs.Contin ue singulair 10 mg qd and albuterol MDI 2 puffs q 4 hrs prn.Monito r resp. status Chronic ob structive pulmonary disease 46083839 J41.1 As above. Diabetes mellitus 543961 09 E11.42 Good control on victoza 1.8 mg qd, lantus 24U qd, metformin 1000 mg BID and SSI.Monito r accuchecks QID. Essential hypertension 07795518 I10 Borderline control on current meds. Will continue for now, but adilson need to make adjustment s.Continue losartan 50 mg qd, spironolac tone 25 mg qd and lasix 20 mg BID.Monito r BP and labs Gout 99650382 M10.09 Continue allopurino l 300 mg qd and colchicine 0.6 mg qd.Monitor sxs. Osteoarthritis 641185034 M15.0 With chronic pain.Connie nue meds and rehab as above. Falls 392024325 R29.6 as above. Hyperlipidemia 26092713 E78.49 Continue atorvastat in 20 mg qd.Monitor labs as outpt. Anxiety 36230865 F41.1 Continue clonazapam 0.5 mg q 12 hrs prnMonitor mood.Psych consult prn. Pain of ri ght ankle joint 4491575387 9625810 M25.571 As above. Pain in ri ght hip joint 1638039787 95846 M25.551 No acute injury found.Cont inue gabapentin 800 mg QID and tramadol 50 mg q 6 hrs prn.Contin ue PT/OT strengthen ing, balance, gait training, safety and function.M onitor sxs. Osteoporosis 67102149 M8 1.0 Continue Ca/D 600/400 mg qd.Monitor as outpt. Paresthesia of hand 3090 21328 R20.2 Concerning for pinched nerve in neck or brachial plexus. Could also be c/w neuropathy from EtOH abuse in the past or CVA.Will get head and neck CT to evaluate. [id number] JAREK DONOHUE NP GENARO Swann [facility] [place] [address] 12/29/2020 11:06:01 12/31/2020 16:10:33 Chronic obstructive pulmonary disease 86909220 J41.1 albuterol mdi q4hr prn Paresthesia of hand 3090 41785 R20.2 Concerning for pinched nerve in neck or brachial plexus. Could also be c/w neuropathy from EtOH abuse in the past or CVA.MD ordered neckhead CT to evaluate Muscle weakness 94214571 M62.81 PT OT eval and treat [id number] CATHLEEN HONEYCUTT [address] [place] [address] [place] [address] 01/01/2021 09:27:04 01/02/2021 16:16:11 Paresthesia of hand 386328996 R20.2 DDx: pinched nerve, trigger point, brachial plexus injuryCoul d also be c/w neuropathy from EtOH abuse in the past or CVA. ordered neckhead CT to evaluate- pending Muscle weakness 84970545 M62.81 PT OT to [facility] work on loosening of trap muscles and ROM of UE Depressive disorder 9558 9007 F32.A situationa l, continue to monitorcon science analyst psych eval if continues [id number] JAREK DONHOUE NP GENARO HONEYCUTT [address] [place] [address] [place] [address] 01/06/2021 11:02:16 01/08/2021 15:54:44 Chronic obstructive pulmonary disease 32855286 J41.1 albuterol mdi q4hr prnmonitor resp status Muscle weakness 94273026 M62.81 PT OT eval and treat [id number] JAREK DONOHUE NP GENARO HONEYCUTT [address] [place] [address] [place] [address] 01/13/2021 08:26:54 01/20/2021 15:54:42 Pain in right hip joint 6723233355 66829 M25.551 No acute injury found.Cont inue gabapentin 800 mg QID and tramadol 50 mg q 6 hrs prn.Contin ue PT/OT strengthen ing, balance, gait training, safety and function.M onitor sxs. Pain of ri ght ankle joint 3853369412 8159331 M25.571 As above. Paresthesia of hand 3090 37069 R20.2 Concerning for pinched nerve in neck or brachial plexus. Could also be c/w neuropathy from EtOH abuse in the past or CVA.Will get head and neck CT to evaluate. Muscle weakness 26177891 M62.81 Very deconditio john.Needs PT/OT as above.Cont inue fall precaution s.Monitor for safety. Asthma 440623659 J45.30 No current sxs.Contin ue singulair 10 mg qd and albuterol MDI 2 puffs q 4 hrs prn.Monito r resp. status Chronic ob structive pulmonary disease 02436277 J41.1 As above. Diabetes mellitus 283114 09 E11.42 Good control on victoza 1.8 mg qd, lantus 24U qd, metformin 1000 mg BID and SSI.Monito r accuchecks QID. Essential hypertension 15145197 I10 Borderline control on current meds. Will continue for now, but adilson need to make adjustment s.Continue losartan 50 mg qd, spironolac tone 25 mg qd and lasix 20 mg BID.Monito r BP and labs Gout 77045339 M10.09 Continue allopurino l 300 mg qd and colchicine 0.6 mg qd.Monitor sxs. Osteoarthritis 615370166 M15.0 With chronic pain.Connie nue meds and rehab as above. Falls 362400116 R29.6 as above. Hyperlipidemia 33062245 E78.49 Continue atorvastat in 20 mg qd.Monitor labs as outpt. Anxiety 14564853 F41.1 Continue clonazapam 0.5 mg q 12 hrs prnMonitor mood.Psych consult prn. Osteoporosis 23051780 M8 1.0 Continue Ca/D 600/400 mg qd.Monitor as outpt. [id number] STEPHY TRAVIS [address] [place] [address] [place] [address] 01/20/2021 09:50:56 01/23/2021 11:16:04 Paresthesia of hand 140765233 R20.2 Concerning for pinched nerve in neck or brachial plexus. Could also be c/w neuropathy from EtOH abuse in the past or CVA.neuro consult-pr obable nerve damage with minimal possiblity of improvemen t Chronic pain 72522117 G8 9.29 tramadol 50 mg q6hr prngabapen tin 800 mg qid Osteoarthritis 188730689 M15.0 With chronic pain.Connie nue meds and rehab as above. [id number] STEPHY TRAVIS [address] [facility] [address] [place] [address] 01/27/2021 10:46:36 01/30/2021 13:02:45 Pain in right hip joint 5367861104 91461 M25.551 No acute injury found.Cont inue gabapentin 800 mg QID and tramadol 50 mg q 6 hrs prn.Contin ue PT/OT strengthen ing, balance, gait training, safety and function.M onitor sxs. Pain of ri ght ankle joint 2641546567 5104952 M25.571 As above. Paresthesia of hand 3090 89752 R20.2 Concerning for pinched nerve in neck or brachial plexus. Could also be c/w neuropathy from EtOH abuse in the past or CVA.Will get head and neck CT to evaluate. Muscle weakness 72115885 M62.81 Very deconditio john.Needs PT/OT as above.Cont inue fall precaution s.Monitor for safety. Asthma 444497757 J45.30 No current sxs.Contin ue singulair 10 mg qd and albuterol MDI 2 puffs q 4 hrs prn.Monito r resp. status Chronic ob structive pulmonary disease 60119689 J41.1 As above. Diabetes mellitus 985363 09 E11.42 Good control on victoza 1.8 mg qd, lantus 24U qd, metformin 1000 mg BID and SSI.Monito r accuchecks QID. Essential hypertension 43705596 I10 Borderline control on current meds. Will continue for now, but adilson need to make adjustment s.Continue losartan 50 mg qd, spironolac tone 25 mg qd and lasix 20 mg BID.Monito r BP and labs Gout 60684575 M10.09 Continue allopurino l 300 mg qd and colchicine 0.6 mg qd.Monitor sxs. Osteoarthritis 919069154 M15.0 With chronic pain.Connie nue meds and rehab as above. Falls 203306464 R29.6 as above. Hyperlipidemia 56344245 E78.49 Continue atorvastat in 20 mg qd.Monitor labs as outpt. Anxiety 38132081 F41.1 Continue clonazapam 0.5 mg q 12 hrs prnMonitor mood.Psych consult prn. Osteoporosis 96440726 M8 1.0 Continue Ca/D 600/400 mg qd.Monitor as outpt. [id number] MD GENARO Panda TANGELA [address] [place] [address] rd [place], [place] [address] 02/16/2021 16:25:03 02/24/2021 11:45:46 Pain in right hip joint 6245750847 79013 M25.551 Continues with pain, but improving. Continue gabapentin 800 mg QID and tramadol 50 mg q 6 hrs prn.Contin ue PT/OT strengthen ing, balance, gait training, safety and function.M onitor sxs. Pain of ri ght ankle joint 6650937663 2018895 M25.571 As above. Paresthesia of hand 3090 66750 R20.2 Per neuro likely to be permanent nerve damage.Con tinue rehab and monitor for improvemen t. Muscle weakness 40408696 M62.81 Continues to be weak.Needs PT/OT as above.Cont inue fall precaution s.Monitor for safety. Asthma 727669384 J45.30 No current sxs.Contin ue singulair 10 mg qd and albuterol MDI 2 puffs q 4 hrs prn.Monito r resp. status Chronic ob structive pulmonary disease 02492982 J41.1 As above. Diabetes mellitus 099006 09 E11.42 Good control on victoza 1.8 mg qd, lantus 24U qd, metformin 1000 mg BID and SSI.Monito r accuchecks QID. Essential hypertension 04496469 I10 Control has improved since here.Connie nue losartan 50 mg qd, spironolac tone 25 mg qd and lasix 20 mg BID.Monito r BP and labs Gout 68855831 M10.09 Continue allopurino l 300 mg qd and colchicine 0.6 mg qd.Monitor sxs. Osteoarthritis 983781297 M15.0 With chronic pain.Connie nue meds and rehab as above. Falls 565044124 R29.6 as above. Hyperlipidemia 01091220 E78.49 Continue atorvastat in 20 mg qd.Monitor labs as outpt. Anxiety 56363129 F41.1 Continue clonazapam 0.5 mg q 12 hrs prnMonitor mood.Psych consult prn. Osteoporosis 15171939 M8 1.0 Continue Ca/D 600/400 mg qd.Monitor as outpt. [id number] JAREK DONOHUE NP [address] [address] 03/02/2021 11:43:23 03/04/2021 13:35:52 SARS-CoV-2 982367062 U07.1 02/28 covid positiveen courage fluid intakeivf for anorexiaco nsider decadron for anorexia [id number] Denis Andino MD [address] [address] 03/03/2021 13:10:53 03/05/2021 14:14:24 COVID-19 565491995 U07.1 See HPIPositiv e covid dxmonitor respirator [...] nephro toxic meds as ablenephro consult prn [id number] JAREK DONOHUE NP [address] [address] 03/04/2021 08:58:02 03/06/2021 15:44:16 COVID-19 921747980 U07.1 03/01 covid positivePo sitive covid dxmonitor [...] nephro toxic meds as ablenephro consult prn [id number] JAREK DONOHUE NP [address] [address] 03/05/2021 13:06:31 03/10/2021 17:44:44 COVID-19 311762418 U07.1 03/01 covid positivePo sitive covid dxmonitor [...] nephro toxic meds as ablenephro consult prn [id number] JAREK DONOHUE NP [address] [address] 03/06/2021 13:32:58 03/11/2021 09:30:32 COVID-19 [id number] U07.1 03/01 covid positivePo sitive covid dxmonitor [...] nephro toxic meds as ablenephro consult prn [id number] JAREK DONOHUE NP [address] [address] 03/09/2021 10:54:29 03/11/2021 10:36:27 COVID-19 [id number] U07.1 03/01 covid positivePo sitive covid dxmonitor [...] nephro toxic meds as ablenephro consult prn [id number] Denis Andino MD [address] [place] [address] 03/10/2021 12:06:21 03/12/2021 16:09:17 COVID-19 [id number] U07.1 Patient covid positiveco ntinue supportive caremonito r PO intake and need for supplement al D7sezqzdik y no increase in work of breathingt o ED for acute decompensa tion Chronic renal failure 90 615018 N18.31 appears to have baseline renal failure stage 3monitor renal functionne phro consult prnavoid nephrotoxi c meds as able [id number] JAREK DONOHUE NP [address] [place] [address] 03/12/2021 13:43:56 03/18/2021 13:55:07 Pain in right hip joint [id number] 34890 M25.551 No acute injury found.jg pentin 800 mg QIDtramado l 50 mg q 6 hrs prn.Contin ue PT/OT strengthen ing, balance, gait training, safety and function.M onitor sxs. Pain of ri ght ankle joint [id number] 4469247 M25.571 As above. Paresthesia of hand 3090 85061 R20.2 Concerning for pinched nerve in neck or brachial plexus. Could also be c/w neuropathy from EtOH abuse in the past or CVA. Muscle weakness 50201115 M62.81 Very deconditio john.Needs PT/OT as above.Cont inue fall precaution s.Monitor for safety. Asthma 233367334 J45.30 No current sxs.singul air 10 mg qdalbutero l MDI 2 puffs q 4 hrs prn.Monito r resp. status Chronic ob structive pulmonary disease 45253252 J41.1 As above. Diabetes mellitus 551993 09 E11.42 Good control on victoza 1.8 mg qd,lantus 24U qd,metform in 1000 mg BID and SSI.Monito r accuchecks QID. Essential hypertension 90404225 I10 Borderline control on current meds. Will continue for now, but adilson need to make adjustment s.losartan 50 mg qd,spirono lactone 25 mg qdlasix 40 mg dailyMonit or BP and labs Gout 88196094 M10.09 allopurino l 300 mg qdcolchici ne 0.6 mg qd.Monitor sxs. Osteoarthritis 603841013 M15.0 With chronic pain.Connie nue meds and rehab as above. Falls 006804403 R29.6 as above. Hyperlipidemia 38152569 E78.49 atorvastat in 20 mg qd.Monitor labs as outpt. Anxiety 32173177 F41.1 clonazapam 0.5 mg q 12 hrs prnMonitor mood.Psych consult prn. Osteoporosis 29662186 M8 1.0 Ca/D 600/400 mg qd.Monitor as outpt. COVID-19 123795527 U07.1 03/01 covid positive-r ecovered by date, [...] nephro toxic meds as ablenephro consult prn [id number] STEPHY TRAVIS TANGELA [address] [place] [address] [place] [address] 03/19/2021 09:03:16 03/25/2021 08:23:39 Pain in right hip joint 8062246192 41564 M25.551 No acute injury found.jg pentin 800 mg QIDtramado l 50 mg qd prn.Contin ue PT/OT strengthen ing, balance, gait training, safety and function.M onitor sxs. Pain of ri ght ankle joint [id number] 9256998 M25.571 As above. Paresthesia of hand 3090 55447 R20.2 Concerning for pinched nerve in neck or brachial plexus. Could also be c/w neuropathy from EtOH abuse in the past or CVA.Will get head and neck CT to evaluate. Muscle weakness 69718294 M62.81 Very deconditio jonh.Needs PT/OT as above.Cont inue fall precaution s.Monitor for safety. Asthma 734881008 J45.30 No current sxs.singul air 10 mg qdalbutero l MDI 2 puffs q 4 hrs prn.Monito r resp. status Chronic ob structive pulmonary disease 86035730 J41.1 As above. Diabetes mellitus 884828 09 E11.42 Good control on victoza 1.8 mg qd,lantus 24U qd,metform in 1000 mg BID and SSI.Monito r accuchecks QID. Essential hypertension 75343485 I10 Borderline control on current meds. Will continue for now, but adilson need to make adjustment s.losartan 50 mg qd,spirono lactone 25 mg qdlasix 40 mg daily.Kaylen tor BP and labs Gout 34415661 M10.09 allopurino l 300 mg qdcolchici ne 0.6 mg qd.Monitor sxs. Osteoarthritis 958977973 M15.0 With chronic pain.CaD 600/400 bidContinu e meds and rehab as above. Falls 426242048 R29.6 PT OT eval and treatfall precaution sfrequent safety checks Hyperlipidemia 59002914 E78.49 atorvastat in 20 mg qd.Monitor labs as outpt. Anxiety 32362640 F41.1 clonazapam 0.5 mg q 12 hrs prnMonitor mood.Psych consult prn. Osteoporosis 91878843 M8 1.0 Ca/D 600/400 mg bidMonitor as outpt. SARS-CoV-2 572563462 U07 .1 02/28 covid positive-r ecovered by dateencour age fluid intakeivf for anorexiaco nsider decadron for anorexia [id number] MD GENARO Arriola [address] [place] [address] [place] [address] 05/20/2021 11:51:35 05/22/2021 13:20:41 Essential hypertension 16798551 I10 losartan 50 mg qdlasix 40 mg qdspironol actone 25 mg qdmonitor bp and need to titrate Chronic ki dney disease stage 3A 342441101 N18.31 patient appears with baseline renal failureon above medsmonito r renal function and nephro consult prn Falls 428344552 R29.6 goal in assisted living[facility] with walker [facility] at [facility] fall risktherap y reeval prn [id number] JAREK DONOHUE NP [facility] TANGELA [address] [place] [address] [place] [address] 06/29/2021 13:51:21 07/01/2021 14:54:55 Edema of lower extremity 052150714 R60.0 losartan 50 mg qdlasix 40 mg qd-add 20 mg at suppertime kcl 20 meq dailyspiro nolactone 25 mg qd [id number] Tami Koroma MD [address] [place] [address] 07/02/2021 19:25:14 07/14/2021 15:26:55 Edema of lower extremity 469772024 R60.0 Continue meds as above.Elev ate as much as able.Monit or. Essential hypertension 69455099 I10 Good control on losartan 50 mg qd, lasix 40 mg qd, and spironolac tone 25 mg qdContinue KCl 20 meq qd to prevent hypokalemi a.Monitor BP and labs Chronic ki dney disease stage 3A 935705674 N18.31 At baseline.C ontinue to avoid nephrotoxi c meds as able.Monit or labs.Renal consult prn. Falls 081200800 R29.6 Not yet at goal.Connie nues to need assist for ambulation .Continue PT/OT for strengthen ing, balance, gait training, safety and function.C ontinue fall precaution s.Monitor for safety. Neuritis o f right ulnar nerve 9016393283 6220400 G56.21 Will have OT get pt padding for right elbow.Tx as needed. [id number] JAREK DONOHUE NP [address] [place] [address] 07/06/2021 14:43:56 07/08/2021 14:31:46 Hemorrhoids 40396309 K64.9 soft not engorged, flat no bleeding Falls 419427274 R29.6 PT OT eval and treatfall precaution sfrequent safety checks [id number] STEPHY TRAVIS TANGELA [address] [place] [address] rd [place] [address] 5 08/27/2021 12:05:50 09/01/2021 15:16:16 Essential hypertension 90589623 I10 Good control onlosartan 50 mg qd,lasix 40 mg qd and 20 mg afternoon, spironolac tone 25 mg qdKCl 20 meq qd to prevent hypokalemi a.Monitor BP and labs Chronic ki dney disease stage 3A 447903954 N18.31 At baseline.C ontinue to avoid nephrotoxi c meds as able.Monit or labs.Renal consult prn. Edema of l ower extremity 526086041 R60.0 lasix 40 mg am, 20 mg afternoonE levate as much as able.compr ession stockingsM onitor. Neuritis o f right ulnar nerve 4898343937 3195357 G56.21 Will have OT get pt padding for right elbow.Tx as needed. Anxiety 17816774 F41.1 Monitor mood.Psych consult prn. Asthma 263678539 J45.30 No current sxs.singul air 10 mg qdalbutero l MDI 2 puffs q 4 hrs prn.Monito r resp. status Chronic ob structive pulmonary disease 05482842 J41.1 As above. Chronic pain 06920593 G8 9.29 tramadol 50 mg q12hr prngabapen tin 800 mg qid Diabetes mellitus 790920 09 E11.42 Good control on victoza 1.8 mg qd,lantus 24U qd,metform in 1000 mg BID and SSI.Monito r accuchecks QID. Gout 78645044 M10.09 allopurino l 300 mg qdcolchici ne 0.6 mg qd.Monitor sxs. Hyperlipidemia 66761235 E78.49 atorvastat in 20 mg qd.Monitor labs as outpt. Osteoarthritis 218346946 M15.0 With chronic pain.CaD 600/400 bidContinu e meds and rehab as above. 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 F41.8 clonazepam 0.5 mg q12h prn (14 day trial through 10/19/21)wi ll monitorHDB H prn (Patient has declined meds for depression in past.) Diabetes mellitus 227875 09 E11.42 Lantus 24U at hsinsulin aspart per sliding scalemetfo rmin 1000 mg bidVictoza 1.8 mg SC dailywill monitor Essential hypertension 27915546 I10 furosemide 40 mg daily in morning and 20 mg in afternoonl osartan 50 mg dailyspiro nolactone 25 mg dailywill monitor Gout 15483145 M10.09 allopurino l 300 mg dailycolch icine 0.6 mg dailywill monitor Hyperlipidemia 94183686 E78.49 atorvastat in 20 mg dailywill monitor Chronic ob structive pulmonary disease 81671046 J41.0 albuterol HFA: 2 puffs q4h prnmontelu kast 10 mg dailywill monitor Peripheral edema 0103729 00 R60.0 furosemide 40 mg in morning and 20 mg in afternoons pironolact one 25 mg dailywill monitor [id number] [facility] [address] [place] [address] 11/25/2021 14:31:15 12/01/2021 16:03:01 Cellulitis of foot 422416689 L03.119 monitor for improvment keflex 500 mg bid to 7 days [id number] STEPHY TRAVIS TANGELA [address] [place] [address] 11/30/2021 12:44:52 12/02/2021 09:37:38 SARS-CoV-2 728878423 U07.1 11/28 covid positiveen courage fluid intakeivf for anorexiaco nsider decadron for sobsend to ED for decompensa tion Cellulitis of foot 11674 6007 L03.119 monitor for improvment keflex 500 mg bid to 7 days [id number] JAREK DONOHUE NP [address] [address] 12/02/2021 13:30:19 12/04/2021 15:05:52 SARS-CoV-2 287829030 U07.1 11/28 covid positiveen courage fluid intakeivf for anorexiaco nsider decadron for sobsend to ED for decompensa tion Cellulitis of foot 65179 6007 L03.119 monitor for improvment -recovered keflex 500 mg bid to 7 daysvascul ar appt as now her feet are cool and purple [id number] JAREK DONOHUE NP [address] [address] 12/03/2021 13:12:39 12/08/2021 14:54:41 SARS-CoV-2 867519763 U07.1 11/28 covid positiveen courage fluid intakeivf for anorexiaco nsider decadron for sobsend to ED for decompensa tion Cellulitis of foot 10477 6007 L03.119 monitor for improvment -recovered cellulitis keflex 500 mg bid to 7 daysvascul ar appt as now her feet are cool and purple [id number] JAREK DONOHUE NP [address] [address] 12/04/2021 14:01:40 12/08/2021 15:20:41 Cellulitis of foot 717147462 L03.119 monitor for improvment -recovered cellulitis keflex 500 mg bid to 7 daysvascul ar appt as now her feet are still slightly dusky Edema of l ower extremity 021354437 R60.0 lasix 40 mg am, 20 mg afternoonE levate as much as able.compr ession stockingsM onitor. SARS-CoV-2 806842725 U07 .1 11/28 covid positiveen courage fluid intakeivf for anorexiaco nsider decadron for sobsend to ED for decompensa tion [id number] JAREK DONOHUE NP [address] [address] 12/07/2021 13:15:52 12/10/2021 15:09:54 SARS-CoV-2 218176799 U07.1 11/28 covid positiveen courage fluid intakeivf for anorexiaco nsider decadron for sobsend to ED for decompensa tion Edema of l ower extremity 230524705 R60.0 lasix 40 mg am, 20 mg afternoonE levate as much as able.compr ession stockings onitor. [id number] JAREK DONOHUE NP [address] [address] 12/09/2021 13:10:43 12/11/2021 15:45:06 Peripheral vascular disease 470160061 I73.9 vascular appt 12/10 SARS-CoV-2 564560345 U07 .1 11/28 covid positive-a symptomati c, recovered by dateencour age fluid intakeivf for anorexiaco nsider decadron for sobsend to ED for decompensa tion [id number] JAREK DONOHUE NP [address] [address] 01/18/2022 13:22:44 01/20/2022 20:31:17 Falls 190994591 R29.6 PT OT eval and treatfall precaution sfrequent safety checks Pain of left wrist 90996 26973 40669 M25.532 tylenol prnice-kaitlin vate prnxray of left wrist [id number] Jazmin Orozco MD [address] [address] 01/29/2022 06:23:17 02/02/2022 15:38:51 Chronic obstructive pulmonary disease 44376548 J41.0 albuterol HFA: 2 puffs q4h prnmontelu kast 10 mg dailywill monitor Diabetes mellitus 515053 09 E11.42 Lantus 24U at hsinsulin aspart per sliding scalemetfo rmin 1000 mg bidVictoza 1.8 mg SC dailywill monitor Essential hypertension 32307134 I10 furosemide 40 mg daily in morning and 20 mg in afternoonl osartan 50 mg dailyspiro nolactone 25 mg dailywill monitor Gout 92942166 M10.09 allopurino l 300 mg dailycolch icine 0.6 mg dailywill monitor SARS-CoV-2 280541884 U07 .1 tested positive 11/28/21ha d asymptomat ic coursereco veredwill continue to monitor Chronic pain 00258126 G8 9.29 physiatry prngabapen tin 800 mg m7iYICE 650 mg q6h prntramado l 50 mg at hswill monitor Mixed anxi ety and depressive disorder 337474326 F41.8 clonazepam 0.5 mg at hswill monitorHDB H prn (Patient has declined meds for depression in past.) Hyperlipidemia 99874190 E78.49 atorvastat in 20 mg dailywill monitor [id number] STEPHY TRAVIS [address] [place] [address] 03/01/2022 14:00:55 03/03/2022 09:51:32 Edema of lower extremity 615087277 R60.0 lasix 40 mg am, 40 mg afternoonE levate as much as able.compr ession stockingsM onitor. Chronic pain 43250237 G8 9.29 tramadol 50 mg q12hr prngabapen tin 800 mg qid Muscle weakness 73462900 M62.81 Very deconditio john againNeeds PT/OT as above.Cont inue fall precaution s.Monitor for safety. Anxiety 03490888 F41.1 Monitor mood.Psych consult prn. [id number] STEPHY TRAVIS [address] [place] [address] 5 03/15/2022 10:51:50 03/17/2022 14:55:23 Chronic pain 59765633 G89.29 tramadol 50 mg q12hr prngabapen tin 800 mg qidxray hips and tailbone [id number] STEPHY TRAVIS TANGELA [address] [place] [address] 03/17/2022 14:08:44 03/23/2022 09:31:25 Chronic pain 40529370 G89.29 tramadol 50 mg q12hr prngabapen tin 800 mg qidxray hips and tailbone-- all negative Diabetes mellitus 937370 09 E11.42 victoza 1.8 mg qd,lantus 24U qd, increase to 25unitsmet formin 1000 mg BID and SSI.Monito r theresa QID. [id number] JAREK DONOHUE NP [address] [address] 03/25/2022 12:12:48 03/29/2022 16:21:44 Chronic obstructive pulmonary disease 22822701 J41.0 albuterol HFA: 2 puffs q4h prnmontelu kast 10 mg dailywill monitor Diabetes mellitus 468129 09 E11.42 Lantus 25U at hsinsulin aspart per sliding scalemetfo rmin 1000 mg bidVictoza 1.8 mg SC dailywill monitor Essential hypertension 95343757 I10 furosemide 40 mg daily in morning and 20 mg in afternoonl osartan 50 mg dailyspiro nolactone 25 mg dailywill monitor Gout 34315079 M10.09 allopurino l 300 mg dailycolch icine 0.6 mg dailywill monitor SARS-CoV-2 023636091 U07 .1 tested positive 11/28/21-r ecovered by [facility] ic coursereco veredwill continue to monitor Chronic pain 86634921 G8 9.29 physiatry prngabapen tin 800 mg b8cLYNI 650 mg q6h prntramado l 50 mg at hswill monitor Mixed anxi ety and depressive disorder 983064560 F41.8 clonazepam 0.5 mg at hswill monitorHDB H prn (Patient has declined meds for depression in past.) Hyperlipidemia 36585872 E78.49 atorvastat in 20 mg dailywill monitor [id number] JAREK DONOHUE NP [address] [address] 04/12/2022 10:48:15 04/14/2022 13:56:56 Chronic pain 34346482 G89.29 physiatry prngabapen tin 800 mg [id number] 650 mg q6h prntramado l 50 mg at q8hr amd q12hr prnwill monitor Falls 865362456 R29.6 PT OT eval and treatfall precaution sfrequent safety checks Depressive disorder 7308 9007 F32.A stop zoloftstar t lexapro 5 mg daily [id number] JAREK DONOHUE NP [address] [address] 05/19/2022 13:57:34 05/21/2022 15:29:23 Edema of lower extremity 646251521 R60.0 lasix 40 mg amElevate as much as able.compr ession stockingsM onitor. Pain in coccyx 13749622 M53.3 monitor skin for potential breakdowns kin barrier [id number] Jazmin Orozco MD [address] [address] 05/26/2022 08:55:13 06/02/2022 11:46:37 Chronic obstructive pulmonary disease 35623808 J41.0 albuterol HFA: 2 puffs q4h prnmontelu kast 10 mg dailywill monitor Chronic pain 69764880 G8 9.29 physiatry prngabapen tin 800 mg [id number] 650 mg q6h prntramado l 50 mg q8h and q12 hr prn - consider taperwill monitor Diabetes mellitus 656557 09 E11.42 Lantus 25U at hsinsulin aspart per sliding scalemetfo rmin 1000 mg bidVictoza 1.8 mg SC dailywill monitor Essential hypertension 53908968 I10 furosemide 40 mg dailylosar fuller 50 mg dailyspiro nolactone 25 mg dailywill monitor Gout 59272743 M10.09 allopurino l 300 mg dailycolch icine 0.6 mg dailywill monitor Mixed anxi ety and depressive disorder 936726948 F41.8 clonazepam 0.5 mg at hsescitalo pram 5 mg dailywill monitor Hyperlipidemia 12284220 E78.49 atorvastat in 20 mg dailywill monitor [id number] JAREK DONOHUE NP [address] [address] 05/31/2022 13:07:57 06/08/2022 12:40:34 Chronic kidney disease stage 3A 087858227 N18.31 worsening due to meds and decreased po intakeD5 1/2 NS iv 50ml/hr for 3 ltrsBMP WedContinu e to avoid nephrotoxi c meds as able.Monit or labs.Renal consult prn. [id number] STEPHY Kirkland [address] [place] [address] [place] [address] 06/05/2022 10:47:36 06/08/2022 13:23:41 Chronic kidney disease stage 3A 010582739 N18.31 recent hospitaliz ation for CKD see AKIsee above AKIContinu e to avoid nephrotoxi c meds as able, see aboveMonit or labs.Renal consult 1-[address] Monreal Chronic ob structive pulmonary disease 80129992 J41.0 albuterol HFA: 2 puffs q4h prnmontelu kast 10 mg dailywill monitor Chronic pain 96122350 G8 9.29 physiatry prngabapen tin 800 mg b2lXUAB 650 mg q6h prntramado l 50 mg q8h and q12 hr prn - consider taperwill monitor Diabetes mellitus 332681 09 E11.42 Lantus 25U at hsinsulin aspart per sliding scaledc in hospital for TISHA metformin 1000 mg bidVictoza 1.8 mg SC dailywill monitor Essential hypertension 43870841 I10 hold furosemide 40 mg daily until 06/11dc losartan 50 mg dailywill monitor bpbp low stable currently Gout 55372062 M10.09 allopurino l decreased to 50 mg daily on Tuesday and co lchicine 0.6 mg daily, hold for diarrheaur ic acid level on 06/07will monitor Mixed anxi ety and depressive disorder 921102045 F41.8 clonazepam 0.5 mg at hsescitalo pram 5 mg dailywill monitor Hyperlipidemia 02565326 E78.49 atorvastat in 20 mg dailywill monitor Acute kidney injury 1466 9001 N17.9 TISHA with hospitaliz ation multifacto rial with dehydratio n, lasix, losartan and diarrhea per nephrology losartan dc'd, lasix on hold until 06/11, metformin dc'd, allopurino l adjusted from 300 mg to 50 mg on mondays and u with nephrology Dr. Monreal in 1-2 weekslabs on 06/07/22 ordered Hyperkalemia 30320428 E8 7.5 hyperkalem ia resolved and k was 6.4 in [facility] supplement discontinu ed in [facility] on 06/07, last k 4.6 on 06/04 [id number] JAREK DONOHUE NP [address] [place] [address] 06/07/2022 14:23:16 06/10/2022 15:07:24 Acute kidney injury 52832482 N17.9 TISHA with hospitaliz ation multifacto rial with dehydratio n, lasix, losartan and diarrhea per nephrology losartan dc'd, lasix on hold until 06/11, metformin dc'd, allopurino l adjusted from 300 mg to 50 mg on mondays and f u with nephrology Dr. Monreal in 1-2 weekslabs on 06/07/22 ordered Chronic ki dney disease stage 3A 984570245 N18.31 recent hospitaliz ation for CKD see AKIsee above AKIContinu e to avoid nephrotoxi c meds as able, see aboveMonit or labs.Renal consult 1-[address] Monreal Hyperkalemia 14117961 E8 7.5 hyperkalem ia resolved and k was 6.4 in [facility] supplement discontinu ed in [facility] on 06/07, last k 4.6 on 06/04 Chronic ob structive pulmonary disease 11871819 J41.0 albuterol HFA: 2 puffs q4h prnmontelu kast 10 mg dailywill monitor Chronic pain 19868078 G8 9.29 gabapentin 800 mg o6bNANV 650 mg q6h prntramado l 50 mg b7yszces monitor Diabetes mellitus 509455 09 E11.42 Lantus 25U at hsinsulin aspart per sliding scaledc in hospital for TISHA metformin 1000 mg bidVictoza 1.8 mg SC dailywill monitor Essential hypertension 56728533 I10 hold furosemide 40 mg daily until 06/11dc losartan 50 mg dailywill monitor bpbp low stable currently Gout 48763635 M10.09 allopurino l decreased to 50 mg daily on Tuesday and co lchicine 0.6 mg daily, hold for diarrheaur ic acid level on 06/07will monitor Mixed anxi ety and depressive disorder 236768633 F41.8 clonazepam 0.5 mg at hsescitalo pram 5 mg dailywill monitor Hyperlipidemia 67015014 E78.49 atorvastat in 20 mg dailywill monitor [id number] JAREK DONOHUE NP [address] [address] 06/11/2022 13:52:33 06/15/2022 15:23:12 Acute kidney injury 81118732 N17.9 TISHA with hospitaliz ation multifacto rial with dehydratio n, lasix, losartan and diarrhea per nephrology losartan dc'd, lasix on hold until 06/11, metformin dc'd, allopurino l adjusted from 300 mg to 50 mg on mondays and f u with nephrology Dr. Monreal in 1-2 weekslabs on 06/07/22 ordered Edema of l ower extremity 258421605 R60.0 lasix 40 mg amElevate as much as able.compr ession stockingsM onitor. Chronic ki dney disease stage 3A 897313367 N18.31 recent hospitaliz ation for CKD see AKIsee above AKIContinu e to avoid nephrotoxi c meds as able, see aboveMonit or labs.Renal consult 1-[address] Monreal [id number] JAREK DONOHUE NP [address] [address] 06/16/2022 12:53:11 06/18/2022 13:10:44 Normal grief reaction 923866693 F43.20 x- sunday 06/18she has prn clonazapam Chronic ki dney disease stage 3A 777202338 N18.31 recent hospitaliz ation for CKD see AKIsee above AKIContinu e to avoid nephrotoxi c meds as able, see aboveMonit or labs.Renal consult 1-[address] Monreal [id number] JAREK DONOHUE NP GENARO HONEYCUTT [address] [place] [address] [place] [address] 06/23/2022 13:18:38 06/30/2022 14:46:10 Chronic obstructive pulmonary disease 41583003 J41.0 albuterol HFA: 2 puffs q4h prnmontelu kast 10 mg dailywill monitor Depressive disorder 3548 9007 F32.A lexapro 5 mg daily-incr ease to 10 mgpsych prn Pain in ri ght hip joint 8963448383 30649 M25.551 No acute injury found.jg pentin 800 mg QIDtramado l 50 mg qd.Continu e PT/OT strengthen ing, balance, gait training, safety and function.M onitor sxs.ortho consult for possible injection [id number] JAREK DONOHUE NP GENARO HONYECUTT [address] [place] [address] [place] [address] 07/20/2022 15:19:14 07/28/2022 16:24:47 Acute kidney injury 99055642 N17.9 TISHA with hospitaliz ation multifacto rial with dehydratio n, lasix, losartan and diarrhea per nephrology losartan dc'd, lasix 40 mg daily, metformin dc'd, allopurino l adjusted from 300 mg to 50 mg on mondays and f u with nephrology Dr. Monreal in 1-2 weekslabs monitored Chronic ki dney disease stage 3A 083898538 N18.31 recent hospitaliz ation for CKD see AKIsee above AKIContinu e to avoid nephrotoxi c meds as able, see aboveMonit or labs.Renal consult Dr. Monreal Hyperkalemia 12546995 E8 7.5 hyperkalem ia resolved and k was 6.4 in [facility] supplement discontinu ed in [facility] nitor labs Chronic ob structive pulmonary disease 01956844 J41.0 albuterol HFA: 2 puffs q4h prnmontelu kast 10 mg dailywill monitor Chronic pain 00968028 G8 9.29 gabapentin 800 mg q0oTJFT 650 mg q6h prntramado l 50 mg u3sekzgg monitor Diabetes mellitus 196726 09 E11.42 Lantus 25U at hsinsulin aspart per sliding scaleVicto za 1.8 mg SC dailywill monitor Essential hypertension 43361088 I10 furosemide 40 mg dailywill monitor bpbp low stable currently Gout 75716305 M10.09 allopurino l decreased to 50 mg daily on Tuesday and co lchicine 0.6 mg daily, hold for diarrheaur ic acid levelwill monitor Mixed anxi ety and depressive disorder 422924008 F41.8 clonazepam 0.5 mg at hsescitalo pram 10 mg dailywill monitor Hyperlipidemia 68536778 E78.49 atorvastat in 20 mg dailywill monitor [id number] JAREK DONOHUE NP [address] [address] 08/16/2022 12:38:40 08/19/2022 14:16:04 Anxiety 41447005 F41.1 lexparo 10 mg dailyclona zepam 0.5 mg hsMonitor mood.Psych consult prn. Chronic ob structive pulmonary disease 17963965 J41.0 albuterol HFA: 2 puffs q4h prnmontelu kast 10 mg dailywill monitor Falls 112924292 R29.6 PT OT eval and treatfall precaution sfrequent safety checks [id number] Tami Koroma MD [address] [address] 09/20/2022 19:12:55 10/05/2022 13:35:55 Anxiety 16395074 F41.1 Mood stable.Con tinue escitalopr am 10 mg qd and clonazepam 0.5 mg qhs.Monito r mood.Psych following. Chronic ob structive pulmonary disease 48904135 J41.0 No current sxs.Contin ue singulair 10 mg qd and albuterol MDI 2 puffs q 4 hrs prn.Monito r resp. status Falls 184783710 R29.6 Brody dependent. Continue fall precaution s.Monitor for safety. Ingrowing nail 001133664 L60.0 Not improving with Keflex, will change to doxy 100 mg BID x 7 d.Monitor sxs.Wound consult Chronic ki dney disease stage 3A 959447863 N18.31 Was almost back to baseline at last check in 05/2022.Con tinue to avoid nephrotoxi c meds as able.Monit or labs, will check this wk.Renal f/u as planned. Chronic pain 40946232 G8 9.29 Continue gabapentin 800 mg QID, tramadol 50 mg q 6 hrs prn and APAP 650 mg q 6 hrs prnMonitor sxs. Diabetes mellitus 566512 09 E11.42 Good control on victoza 1.8 mg qd, lantus 24U qd, and SSI. Monitor accuchecks TID. Essential hypertension 24204185 I10 Good control on furosemide 40 mg qdMonitor BP and labs. Chronic constipation 236 412165 K59.09 Will add miralax 17 gms qd and continue metamucil 1 tsp qd and miralax BID prn.Monito r bowel function [id number] STEPHY TRAVIS [address] [place] [address] rd [place] [address] 11/12/2022 10:43:31 11/16/2022 19:30:19 Anxiety 22779586 F41.1 Mood stable.esc italopram 10 mg qdclonazep am 0.5 mg qhs.Monito r mood.Psych following. Chronic ob structive pulmonary disease 72857583 J41.0 No current sxs.singul air 10 mg qdalbutero l MDI 2 puffs q 4 hrs prn.Monito r resp. status Falls 027052614 R29.6 Brody dependent. Continue fall precaution s.Monitor for safety. Chronic ki dney disease stage 3A 081339060 N18.31 Was almost back to baseline at last check in 05/2022.Con tinue to avoid nephrotoxi c meds as able.Monit or labs, will check this wk.Renal f/u as planned. Chronic pain 48044838 G8 9.29 gabapentin 800 mg QID,tramad ol 50 mg at 1400 decreased from bidAPAP 650 mg q 6 hrs prnMonitor sxs. Diabetes mellitus 035899 09 E11.42 Good control on victoza 1.8 mg qd,lantus 25 Units qd, and SSI.Monito r accuchecks TID. Essential hypertension 83572189 I10 Good control on furosemide 40 mg qdMonitor BP and labs. Chronic constipation 236 597892 K59.09 Will add miralax 17 gms qd and continue metamucil 1 tsp qd and miralax BID prn.Monito r bowel function [id number] STEPHY TRAVIS TANGELA [address] [place] [address] [place] [address] 12/31/2022 15:41:28 01/03/2023 15:15:47 Anxiety 70090660 F41.1 Mood stable.esc italopram 10 mg qdclonazep am 0.5 mg qhs.Monito r mood.Psych following. Chronic ob structive pulmonary disease 48081647 J41.0 No current sxs.singul air 10 mg qdalbutero l MDI 2 puffs q 4 hrs prn.Monito r resp. status Falls 233429139 R29.6 Brody dependent. Continue fall precaution s.Monitor for safety. Chronic ki dney disease stage 3A 618949364 N18.31 Was almost back to baseline at last check in 05/2022.Con tinue to avoid nephrotoxi c meds as able.Monit or labs, will check this wk.Renal f/u as planned. Chronic pain 86240076 G8 9.29 gabapentin 800 mg QID,tramad ol 50 mg at 1400 decreased from bidAPAP 650 mg q 6 hrs prnMonitor sxs. Diabetes mellitus 689994 09 E11.42 Good control on victoza 1.8 mg qd,lantus 25 Units qd, and SSI.Monito r accuchecks TID. Essential hypertension 38349700 I10 Good control on furosemide 40 mg qdMonitor BP and labs. Chronic constipation 236 731306 K59.09 miralax 17 gms qdmetamuci l 1 tsp qdmiralax BID prn.Monito r bowel function [id number] MD GENARO Panda [address] [place] [address] [place] [address] 01/20/2023 18:42:19 02/01/2023 09:01:35 Anxiety 12479166 F41.1 Mood stable.Con tinue escitalopr am 10 mg qd and clonazepam 0.5 mg qhs.Monito r mood.Psych following. Chronic ob structive pulmonary disease 12438227 J41.0 No current sxs.Contin ue singulair 10 mg qd and albuterol MDI 2 puffs q 4 hrs prn.Monito r resp. status Falls 820933688 R29.6 Brody dependent. Continue fall precaution s.Monitor for safety. Chronic ki dney disease stage 3A 504245206 N18.31 At baseline at last check in 11/2022.Co ntinue to avoid nephrotoxi c meds as able.Renal f/u as planned.Connelly s labs ordered monthly, but not done since 12/08/22, will change to every 3 months as she has been stable. Chronic pain 11267892 G8 9.29 With continued neuropathy pain, already on max dose of gabapentin .Continue gabapentin 800 mg QID, tramadol 50 mg TID and APAP 650 mg q 6 hrs prnMonitor sxs. Diabetes mellitus 105948 09 E11.42 FIngerstic ks variable. No HgA1C in the past yr.Continu e victoza 1.8 mg qd, lantus 25U qd, and SSI.Monito r accuchecks TID, will order HgA1C for next tuesday. Essential hypertension 46028265 I10 Remains in good control on furosemide 40 mg qdMonitor BP and labs. Chronic constipation 236 308495 K59.09 Continue metamucil 1 tsp qd and miralax 17 gms BID prn.Monito r bowel function Asthenia 48986991 R53.81 Encouraged pt to get up to activities again. Reminded her that getting up helps her feel better.Mon itor [id number] ERIKA OLSON, SARAHI HONEYCUTT [address] [place] [address] [place] [address] 03/10/2023 08:15:48 03/14/2023 15:52:57 Abdominal pain 99952347 R10.9 diffuse abdominal pain , reports hx of hernia( not appreciate d on exam)5/10 when lying 7/10 when sitting upwaxes and wane -non radiatinga ggravated when having a bowel moving or sitting up.will obtain abd U/S-cbc- bmp-amylas e and lipaseAfte r exam patient is noted sitting up in bed eating breakfast. Hemorrhoids 71041270 K64 .9 patient reports hx internal and externalre ports flare up, she tells me that suppositor ies does not stay in.Nursing reports that she complains but will refuse treatment. plan of care discussed with nursing. [id number] SARAHI MCFARLAND [address] [place] [address] [place] [address] 04/06/2023 08:03:00 04/07/2023 19:40:55 Abdominal pain 68999353 R10.9 03/31: Updated by SW that pt reports abdominal pain during care conference . diffuse abdominal pain , reports hx of hernia( not appreciate d on exam): recent ultrasound see above- previous US ordered on 03/11 not completed ? unsure if ordered by nursing.re ferral to GI at [facility] [place] awaiting appointmen t confirmati on.waxes and wane -non radiatinga ggravated when having a bowel moving or sitting up.will get updated labs for 04/11/23 Chronic pain 45372049 G8 9.29 With continued neuropathy pain, already on max dose of gabapentin .Continue gabapentin 800 mg QID, tramadol 50 mg TID and APAP 650 mg q 6 hrs prnMonitor sxs. Asthma 371914245 J45.30 singulair 10 mg qdalbutero l MDI 2 puffs q 4 hrs prn.Monito r resp. status Depressive disorder 3548 9007 F32.A lexapro 5 mg daily-incr ease to 10 mgpsych prn Diabetes mellitus 985866 09 E11.42 Fingerstic ks variable. No HgA1C in the past yr.lantus 25U qd, and SSI.Monito r accuchecks TID, will order HgA1C for next tuesday.Monty toza changed to trulicity per insurance will not cover victoza. Essential hypertension 80788521 I10 Remains in good control on furosemide 40 mg qdMonitor BP and labs. Hyperlipidemia 84502423 E78.49 atorvastat in 20 mg dailywill monitor [id number] SARAHI MCFARLAND TANGELA [address] [place] [address] [place] [address] 07/01/2023 12:39:23 07/05/2023 11:14:24 Abdominal pain 30347055 R10.9 03/31: Updated by SW that pt reports abdominal pain during care conference . diffuse abdominal pain , reports hx of hernia( not appreciate d on exam): recent ultrasound see above- previous US ordered on 03/11 not completed ? unsure if ordered by nursing.re ferral to GI at [facility] [place] awaiting appointmen t confirmati on.waxes and wane -non radiatinga ggravated when having a bowel moving or sitting up.will get updated labs for 04/11/23 History of hernia repair 0755700091 9109 Z98.890 07/01/23:s/ p repair of incarcerat ed umbilical hernia w/o obstructio n and unilateral inguinal with mesh.post op follow up on 07/11/[address] [place] [address] outside [facility] [facility] starting 07/04/23. Do not remove or get wet dressing wet.VS qshiftNurs ing to update providers with any acute changes.LA BS ORD FOR 07/04/23 PLACED IN [place] [id number] SARAHI MCFARLAND [address] [address] 07/04/2023 15:25:43 07/06/2023 09:53:33 History of hernia repair 2554477376 9109 Z98.890 07/01/23:s/ p repair of incarcerat ed umbilical hernia w/o obstructio n and unilateral inguinal with mesh.post op follow up on 07/11/[address] [place] [address] outside [facility] starting 07/04/23. Do not remove or get wet dressing wet.VS qshift - have been stable.Lamar sing to update providers with any acute changes.LA BS ORD FOR 07/04/23 PLACED IN [place]- not completed reordered for 07/04 [id number] SARAHI MCFARLAND [address] [address] 07/11/2023 08:53:35 07/14/2023 13:06:16 History of hernia repair 1535753587 9109 Z98.890 07/01/23:s/ p repair of incarcerat ed umbilical hernia w/o obstructio n and unilateral inguinal with mesh.post op follow up on 07/11/[address] [place] [address] outside [facility] starting 07/04/23. Do not remove or get wet dressing wet.VS qshift - have been stable.Lamar sing to update providers with any acute changesPat ient has follow up appt today with surgery. Pain of right calf 79910 92995 743864 M79.661 reports pain with palpation and flexionuna ble to palpate pedal pulse but right foot is warm, no swelling +CMSwill get an ultrasound to rule out DVT. [id number] SARAHI MCFARLAND [address] [address] 07/13/2023 11:25:16 07/15/2023 08:46:50 History of hernia repair 1682367109 9109 Z98.890 07/01/23:s/ p repair of incarcerat ed umbilical hernia w/o obstructio n and unilateral inguinal with mesh.post op follow up on 07/11/[address] [place] [address] outside [facility] starting 07/04/23. Do not remove or get wet dressing wet.VS qshift - have been stable.Lamar sing to update providers with any acute changes. Pain of right calf 67786 94558 696952 M79.661 reports pain with palpation and flexionuna ble to palpate pedal pulse but right foot is warm, no swelling +CMSultras ound to rule out DVT pending. Diabetes mellitus 899434 09 E11.42 BGLs 300-400swi ll adjust SSC and increase l[facility] 25 [facility] [place] 0.75 mg weekly-con tinue FS TID and HS [id number] SARAHI MCFARLAND [address] [address] 07/21/2023 09:47:32 07/26/2023 11:58:03 History of hernia repair 2042639904 9109 Z98.890 07/01/23:s/ p repair of incarcerat ed umbilical hernia w/o obstructio n and unilateral inguinal with mesh. et.continu e to be stable post op.Nursing to update providers with any acute changes. Pain of right calf 24517 61583 374295 M79.661 ultrasound negativept encouraged OOB for postional changes and increase circulatio ncontinue tylenol 975 mg TID and prn tramadol Diabetes mellitus 112896 09 E11.42 BGLs have improved from 400 but continues to be high 200- 300swill adjust SSC and increase lantus from 30 units to 35 units at hscontinue trulicity 0.75 mg weekly-con tinue FS TID and HS [id number] SARAHI MCFARLAND [address] [address] 07/25/2023 12:18:50 08/01/2023 14:06:31 History of hernia repair 0590470950 9109 Z98.890 07/24: continue to have some discomfort at incisional site, we discussed this is normal and can last for a few weeks or even months. There is no redness, swelling or warmth.s/p repair of incarcerat ed umbilical hernia w/o obstructio n and unilateral inguinal with mesh. et.continu e to be stable post op.Nursing to update providers with any acute changes. Diabetes mellitus 207750 09 E11.42 BGLS appeared to have improved for a few days. Morning BGL better but afternoon and evening continues to be high, nursing reports that she eats a lot of candy bought in by visitor. will educated on next visit.will adjust lispro SSC and revisit BGL later this week.connie nue trulicity 0.75 mg weekly-con tinue FS TID and HS [id number] SARAHI MCFARLAND [address] [address] 08/02/2023 10:29:45 08/05/2023 08:38:11 History of hernia repair 8086272513 9109 Z98.890 s/p repair of incarcerat ed umbilical hernia w/o obstructio n and unilateral inguinal with mesh. et.continu e to be stable post op.surgica l incisions now healedNurs ing to update providers with any acute changes. Diabetes mellitus 380941 09 E11.42 blood sugars have improved but continue to have bgl in the 300s.-lant us increased to 40 units hscontinue Lispro SSCcontinu e trulicity 0.75 mg weekly-con tinue FS TID and HS Asthma 282889023 J45.30 breathing has been easy and unlabored. singulair 10 mg qdalbutero l MDI 2 puffs q 4 hrs prn.Monito r resp. status Chronic ki dney disease stage 3A 432513539 N18.31 07/05 last Bun 38-Cr 1.6continu e to avoid nephrotoxi ns Chronic ob structive pulmonary disease 40892694 J41.0 Continue singulair 10 mg qd and albuterol MDI 2 puffs q 4 hrs prn. Depressive disorder 9058 9007 F32.A lexapro 5 mg daily-incr ease to 10 mgpsych prn [id number] Tami Koroma MD [address] [place] [address] 10/07/2023 17:24:57 11/28/2023 13:46:23 Diabetes mellitus 78921902 E11.42 HgA1C 7.8 in 06/2023.Sug ars remain too high most of the jose, often>300C ontinue victoza 1.8 mg qd, lantus 25U qd, and SSI.Monito r accuchecks TID.Consid er increase of lantus. Asthenia 34780404 R53.81 Staff continues to encourage pt to get up to activities .Tonight I reminded her that getting up helps her feel better.Mon itor Anxiety 19773030 F41.1 Mood down tonightCon tinue escitalopr am 10 mg qd and clonazepam 0.5 mg qhs.Monito r mood.Psych following. Chronic ob structive pulmonary disease 76290092 J41.0 No current sxs.Contin ue singulair 10 mg qd and albuterol MDI 2 puffs q 4 hrs prn.Monito r resp. status Falls 957096892 R29.6 Continues to be brody dependent. Continue fall precaution s.Monitor for safety. Chronic ki dney disease stage 3A 472128455 N18.31 Last labs in 06/2023, stable.Con tinue to avoid nephrotoxi c meds as able.Renal f/u as planned.Co ntinue to monitor q 3 months. Chronic pain 51382711 G8 9.29 With continued neuropathy pain, already on max dose of gabapentin .Trouble sleeping due to pain.Will schedule tramadol 50 mg qhs and make prn dose 50 mg BID prn.Contin ue gabapentin 800 mg QID and APAP 650 mg q 6 hrs prnMonitor sxs. Essential hypertension 75427865 I10 Remains in good control on furosemide 40 mg qdMonitor BP and labs. Chronic constipation 236 658945 K59.09 Continue bowel meds as ordered.Mo nitor bowel function. [id number] SARAHI MCFARLAND [facility] [address] [place] [address] 10/12/2023 10:09:52 10/14/2023 10:23:32 Depressive disorder 99936981 F32.A reports fatigue and low energy.see n by psychiatric cns 10/09per psych recommenda tion will decrease clonazepam from 0.5 to 0.25 mg at bedtimecon tinue lexapro 10 mg daily [id number] SARAHI MCFARLAND [address] [place] [address] 11/28/2023 08:41:33 11/29/2023 11:39:06 Diabetes mellitus 86396531 E11.42 FS wax and wane to low 300scontin ue Lispro SSCcontinu e trulicity 1.5 mg weekly-cailin tus 40 units hscontinue FS TID and HS Asthma 265637186 J45.30 breathing has been easy and unlabored. singulair 10 mg qdalbutero l MDI 2 puffs q 4 hrs prn.Monito r resp. status Chronic ki dney disease stage 3A 160248189 N18.31 continue to avoid nephrotoxi ns Chronic ob structive pulmonary disease 18055393 J41.0 Continue singulair 10 mg qd and albuterol MDI 2 puffs q 4 hrs prn. Depressive disorder 3548 9007 F32.A continue clonazepam from 0.25 mg at bedtimecon tinue lexapro 10 mg dailyMonit or mood for changes with behaviors. psych prn [id number] SARAHI MCFARLAND [facility] TANGEL[place] [address] [place] [address] [place] [address] 01/12/2024 10:51:05 01/18/2024 12:03:17 Diabetes mellitus 53972027 E11.42 FS wax and wane mainly under 200s.connie nue Lispro SSCcontinu e trulicity 1.5 mg weekly-cailin tus 40 units hs - consider titratingc ontinue FS TID and HS Asthma 040894091 J45.30 breathing has been easy and unlabored. singulair 10 mg qdalbutero l MDI 2 puffs q 4 hrs prn.Monito r resp. status Chronic ki dney disease stage 3A 444395202 N18.31 continue to avoid nephrotoxi ns Chronic ob structive pulmonary disease 66135489 J41.0 Continue singulair 10 mg qd and albuterol MDI 2 puffs q 4 hrs prn. Depressive disorder 1528 9007 F32.A continue clonazepam from 0.25 mg at bedtimecon tinue lexapro 10 mg dailyMonit or mood for changes with behaviors. psych prn Anxiety 04508337 F41.1 Continue escitalopr am 10 mg qd and clonazepam 0.5 mg qhs. Chronic pain 75366468 G8 9.29 Continue gabapentin 800 mg QID, tramadol 50 mg TID and APAP 650 mg q 6 hrs prnMonitor sxs. Essential hypertension 44596198 I10 Remains in good control on furosemide 40 mg qdMonitor BP and labs. [id number] SARAHI MCFARLAND [address] [place] [address] 02/20/2024 15:10:23 02/21/2024 13:53:21 Bilateral lower leg edema 890875367 R60.0 trace amount;mos t likely dependent. patient rarely gets OOB.encour aged to elevated legs on pillowsden ies any discomfort , VSSdiscuss ed with nursing ,no need for diureticnu rsing to update provider with worsening sx. [id number] SARAHI MCFARLAND [address] [place] [address] 04/12/2024 13:49:48 04/13/2024 15:17:56 Abdominal pain 87576735 R10.9 discomfort associated with diarrheare ports burning with voidwill get UA with c/s.send stool r/o cdiffcheck labs CBC, BMP Itching of skin 43188934 0 L29.9 reports all over itchinessp er nursing no rash notedwill add hydroxyzin e 25 mg q6 prntriamci nolone 0.1 % cream BID to extremitie sstart claritin 10 mg dailycheck uric acid level for elevation due to hx of ckd to r/o cause of itching. [id number] [facility]LAND [facility] [address] [place] [address] [place] [address] 04/15/2024 09:05:37 04/26/2024 13:43:37 Urinary tract infectious disease 53771199 N39.0 UA + for nitrates, WBC and bloodstart ed on bactrim DS with probioticm onitor for retention or worsening sx. Chronic ki dney disease stage 3A 145875043 N18.31 Cr 1.7on gabapentin 800 mg QID decreased to 600 mg TIDlasix decreased from 40 mg daily to 20 mg QODcontinu e to avoid nephrotoxi nsextra fluids encouraged /elevate legs Gout 66810999 M10.09 uric acid level 7.4colchic ine 0.6 mg daily d/c'd changed to PRN for flare upsallopur inol 50 mg daily changed to 100mg QODrecheck uric acid level in 1 week [id number] CUONG JONES, LAURIE [address] [place] [address] 05/23/2024 13:10:15 05/25/2024 08:27:44 Nausea 837199989 R11.0 Pt has hx of hernia, repaired per patient.Po ssible recurrent hiatal hernia.Ginger st xray ordered with CBC, BMP.PRN zofran, and continue monitor. [place]ise 149985015 R53.81 VSS, afebrile at this time.Upper abdominal discomfort with nausea but no vomiting.W ill check labs and Xray to r/o acute respirator y problem or recurrent hernia. Diabetes mellitus 395913 09 E11.42 FS stable, mainly under 200s.connie nue Lispro SSCcontinu e trulicity 1.5 mg weekly-cailin tus 40 units hs - consider titratingc ontinue FS TID and HS Asthma 029825240 J45.30 Stable.unl abored.Con tinuesingu lair 10 mg qdalbutero l MDI 2 puffs q 4 hrs prn.Monito r resp. status Chronic ob structive pulmonary disease 91460963 J41.0 Stable.Con tinue singulair 10 mg qd and albuterol MDI 2 puffs q 4 hrs prn. Essential hypertension 77271724 I10 Remains in good control on furosemide 40 mg qdContinue monitor BP and labs. Health Concerns Section Related Observation LastModified by Organization Detai ls LastModified Time None Recorded Concern Status LastModified by Organization Details LastModified Time None Recorded Advance Directives Directive Y: Payers Encounter Date Sequence Insurance Name Policy Number Policy Manuel Covered Member ID Manuel Member ID Guarantor Name 01/12/2024 2 [place] Melissa E Colon [id number] Melissa Colon 01/12/2024 1 [place] [employer] Melissa E Colon [id number] Melissa Colon 02/20/2024 2 [place] Melissa E Colon [id number] Melissa Colon 02/20/2024 1 [place] [employer] Melissa E Colon [id number] Melissa Colon 04/12/2024 2 [place] Melissa E Colon [id number] Melissa Colon 04/12/2024 1 [place] [employer] Melissa E Colon [id number] Melissa Colon 04/15/2024 2 [place] Melissa E Colon [id number] Melissa Colon 04/15/2024 1 [place] [employer] Melissa E Colon [id number] Melissa Colon 05/23/2024 2 [place] Melissa E Colon [id number] Melissa Colon 05/23/2024 1 [place] [employer] Melissa E Colon [id number] Melissa Colon Notes Date Note Type Note Provider Name and Address Organization Details Recorded Time 01/12/2024 text/html Patient is a 77 yr [...] has non acute concerns SARAHI MCFARLAND [address] [facility], [address], [place], [address], [employer] 01/17/2024 23:16:20 02/20/2024 text/html This is a [...] other acute nursing concerns. SARAHI MCFARLAND [address] [facility], [address], [place], [address], [employer] 02/20/2024 15:33:09 04/12/2024 text/html Melissa is a 78 yr old patient seen for acute rounding visit via telehealth. She tells me that she has not been feeling well for the past 2 days, she reports a decrease appetite,endorse abdominal discomfort with diarrhea and burning with urination, she does not have any nausea or vomiting. She reports all over body itching as well. per nursing she ate breakfast today but refused lunch. SARAHI MCFARLAND [address] 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 Patient recent labs and UA results reviewed with plans or care discussed. UA noted +, stool negative for infection. SARAHI MCFARLAND [address] [facility], [address], [place], [address], [employer] 04/25/2024 23:11:49 05/23/2024 text/html Melissa is a 78 yr old patient seen for acute rounding visit per nursing request. Pt reports she feels sick and nauseous. Pt complains of upper abdominal discomfort but not pain. Pt wants to vomit but can't. Pt also states that having difficulty deep breath. Pt states that she had hernia repair in the past, and feels it came back.Pt can eat, but she feels the foods sitting in the middle of chest . Denies sob or constipation.She also recently treated UTI with bactrim in March. Pt denies burning sensation with urination, urgency or pelvic pressure. Upon assessment today, she was sitting up in her bed, VSS, NAD, but seems tired.Abdomen distended as her baseline, has positive BS, and no prominent bulging on ther upper abdomen. Jayson abdominal pain with palpation. CUONG JONES, DELIVERY TECHNICIAN [address] [facility], [address], [place], [address], [place] [facility] [employer] [facility] 05/23/2024 13:56:14 OBGyn Episode No OBEpisode recorded.
--- OUTSIDE RECORDS SUMMARY | 2024-06-04 06:02 | XMS_ITS | Clinical Summary ---
Author Organization [facility] Address [address] [place] [address] [address] [place] [id number] Phone Care Team Providers Care Document Review Attorney Name Role Phone Rossi Montiel MD Primary Care Provider [phone] Allergies Active Allergy Reactions Criticality Noted Date [...] type 2 diabetes mellitus 0 07/23/2020 Immunizations Immunization Administration Dates Next Due Influenza Vaccine, Quadrivalent, [...] Visit [facility] [address] [place] [id number] Rhett Dai MD [id number] [facility] [address] [place] [address] Health Maintenance Due Date Last Done Comments Pneumococcal Vaccine: 50+ Years (1 of 2 - PCV) 05/08/1964 Diabetes: Hemoglobin A1C 03/24/2020 Diabetes: Ophthalmology Exam 03/24/2020 Diabetes: Pedal Pulse Checked 03/24/2020 Diabetes: Sensory Foot Exam 03/24/2020 Diabetes: Visual Foot Exam 03/24/2020 Influenza Vaccine (Season Ended) 2024 09/27/2022, 12/09/2021 Hepatitis B Vaccine Aged Out No longe r eligible based on patient's age to complete this topic Insurance Medicare Medicaid [place] Medicare [place] Care Teams Document Review Attorney Relationship Specialty Start Date End Date Rossi Montiel MD [address] [place], [place] PCP - General 03/03/20
[2024-06-04 06:13] LABS: Basophils Percent Auto 0.9 % (0-2); Eosinophils Absolute Auto 0.4 X10*3/uL (0.0-0.4); Eosinophils Percent Auto 9.5 % (0-4); Hematocrit 30.4 % (37.0-47.0); Hemoglobin 9.7 g/dl (12.0-16.0); Imm Gran Abs Auto 0.01 X10*3/uL (0.00-0.03); Imm Gran Pct Auto 0.2 % (0.0-0.4); Lymphocytes Absolute Auto 1.2 X10*3/uL (1.2-4.9); Lymphocytes Percent Auto 25.9 % (20-40); Mean Corpuscular HGB Conc 31.9 g/dl (31.0-35.0); Mean Corpuscular Hemoglobin 30.4 pg (27.0-33.0); Mean Corpuscular Volume 95.3 fL (80.0-98.0); Mean Platelet Volume 9.5 fL (9.4-12.3); Monocytes Absolute Auto 0.4 X10*3/uL (0.1-1.2); Monocytes Percent Auto 9.7 % (2-11); Neutrophils Absolute Auto 2.4 x10*3/uL (2.0-8.3); Neutrophils Percent Auto 53.8 % (45-73); Platelet Count 103 X10*3/uL (160-400); Red Blood Count 3.19 X10*6/uL (4.20-5.50); Red Cell Distribution Width 14.1 % (11.0-16.0); White Blood Count 4.4 X10*3/uL (4.8-10.8)
[2024-06-04 06:39] LABS: Anion Gap 9 (12-20); Blood Urea Nitrogen 34 mg/dL (9-16); Calcium 8.2 mg/dL (8.4-10.2); Carbon Dioxide 23 mmol/L (22-29); Chloride 114 mmol/L (96-108); Estimated Glomerular Filt Rate 28; Glucose Random 151 mg/dL (60-115); Potassium 4.3 mmol/L (3.3-5.1); Sodium 142 mmol/L (135-145)
[2024-06-04 06:43] LABS: Estimated Average Glucose 143 mg/dL; Hemoglobin A1C 122.0604 umol/L; Hemoglobin A1c % 6.6 % (<6.0); Total Hemoglobin (HGBA1C) 2511.2704 umol/L
== END 2024-06-04 05:47 | disposition home or self-care (01) ==
LOC: HO.MMNH3L 05:46
PROVIDERS: Visit Provider Student in an Organized Health Care Education/Training Program
DX: I10 Essential (primary) hypertension (principal); E11.42 Type 2 diabetes mellitus with diabetic polyneuropathy
CPT/HCPCS: 36415; 80048; 83036; 85025

== ENCOUNTER 2024-08-10 08:19 | Outpatient (REF) | payer MEDICARE, MEDICAID, SELFPAY ==
--- NOTE | ~2024-08-10 | US_ITS ---
EXAMINATION: US ABDOMEN COMPLETE CLINICAL INFORMATION: CKD. COMPARISON: December 18, 2021. Correlated to CT dated June 01, 2022.. TECHNIQUE: Real-time ultrasound of the abdomen using grayscale technique. FINDINGS: PANCREAS: 1 cm anechoic lesion without flow on color Doppler interrogation in the anterior body. ABDOMINAL AORTA: The mid, and distal segments are normal in caliber. INFERIOR VENA CAVA: Visualized portions are normal. LIVER: Liver measures 16 cm. Nodular surface. Coarse echotexture. No gross solid or cystic lesion detected by technologist. No intrahepatic biliary ductal dilatation. GALLBLADDER: Biliary sludge and probable tiny layering gallstones. No pericholecystic fluid collection or gallbladder wall thickening. COMMON BILE DUCT: 4 mm. RIGHT KIDNEY: 11 cm. Renal cortical thinning. Normal echotexture. No hydronephrosis. There is a well-defined, 4.6 cm exophytic anechoic lesion in the lateral midportion without color Doppler interrogation or nodular component.. LEFT KIDNEY: 9 cm. Renal cortical thinning. Normal echotexture. No hydronephrosis. No gross solid or cystic lesion detected. . SPLEEN: 13 cm. No gross lesion identified.. FREE FLUID: Small to moderate volume. US/US abdomen complete IMPRESSION: Hepatocellular disease/cirrhosis with small to moderate volume of ascites. Portal hypertension cannot be excluded. Biliary sludge and likely small cholelithiasis. 4.6 cm simple cyst, right kidney. No hydronephrosis. Electronically signed by: Geovanni Clement MD 08/10/2024 09:18 AM EDT
--- OUTSIDE RECORDS SUMMARY | 2024-08-10 08:25 | XMS_ITS | Data Portability ---
Author Organization [facility] [employer] [facility], Main Office Address [address] [facility] [facility] [address], [address] [place] [address] Care Team Providers Care Seafood Specialist Name Role Phone SARAH MELENDEZ [facility] OTHER Assessment Encounter Date Assessment Date Assessment LastModified by Organization Details LastModified Time 06/06/2024 06/06/2024 Labs 03/12/24 Wbc 4.6, Hgb 9.9, Plt 114. Na 139, K 4.5, Bun 46, Cr 1.54 06/04/24 Wbc 4.4, Hgb 9.7, Hct 30.4, Plt 103. Na 142, K 4.3, Bun 34, Cr 1.73, A1C 6.6 [email or web address] Not available 06/06/2024 11:50:54 Plan of Treatment Reminders Order Date Submit [...] and Address Organization Details Recorded Time Falls [id number] Active 2020 JAREK CHARANJIT, SCIENCE FACULTY MEMBER [address] [facility], [address], [place], [address], [facility] 12:59:57 Muscle weakness 69373810 Active 2020 JAREK CHARANJIT, SCIENCE FACULTY MEMBER [address] [facility], [address], [place], [address], [facility] 13:23:00 Hyperlipide manuelito 65307235 Active 2020 JAREK DONOHUE, SCIENCE FACULTY MEMBER [address], [address], [place], [address], [facility] 1 13:27:57 Anxiety 66796164 Active 2020 JAREK DONOHUE NP [address] [facility], [address], [place], [address], [facility] 1 13:29:56 Osteoporosi s 01336017 Active 2020 Tami Koroma MD [address], [address], [place], [address], [facility] 1 22:38:51 Paresthesia of hand 399961656 Active 2020 Tami Koroma MD [address] [facility], [address], [place], [address], [facility] 1 22:49:02 Pain of right hip joint 1670439446250 02 Active 2021 Tami Koroma MD [address] [facility], [address], [place], [address], [facility] 2 20:36:19 Pain of right ankle joint 3767653200556 9106 Active 2021 Tami Koroma MD [address] [facility], [address], [place], [address], [facility] 2 20:36:23 SARS-CoV-2 Active 2021 JAREK DONOHUE NP [address] [facility], [address], [place], [address], [facility] 2 14:11:45 Chronic kidney disease stage 3A 211738167 Active 2021 Denis Andino MD [address], [address], [place], [address], [facility] 2 12:01:34 Edema of lower extremity 446897984 Active 2021 JAREK DONOHUE NP [address], [address], [place], [address], [facility] 2 13:53:14 Cellulitis of foot 348131308 Active 2021 JAREK DONOHUE NP [address], [address], [place], [address], [facility] 2 14:35:54 Peripheral vascular disease 345710516 Active 2021 JAREK DONOHUE NP [address], [address], [place], [address], [facility] 2 13:11:46 Pain of left wrist 0425747765797 02 Active 2021 JAREK DONOHUE NP [address], [address], [place], [address], [facility] 2 13:23:39 Depressive disorder 69653641 Active 2022 JAREK DONOHUE NP [address], [address], [place], [address], [facility] 3 10:49:37 Pain in coccyx 33014723 Active 2022 JAREK DONOHUE NP [address], [address], [place], [address], [facility] 3 14:00:08 Acute kidney injury 37529285 Active 2022 Lamar Pickett NP [address], [address], [place], [address], [facility] 3 11:30:14 Hyperkalemi a 66617742 Active 2022 Lamar Pickett NP [address], [address], [place], [address], [facility] 3 11:39:22 Normal grief reaction 632937212 Active 2022 JAREK DONOHUE NP [address], [address], [place], [address], [facility] 3 13:03:50 History of hernia repair 1466727968407 9 Active 2023 SARAHI MCFARLAND [address], [address], [place], [address], [facility] 4 17:36:19 Chronic pain 34151074 Active 2018 Denis Andino MD [address], [address], [place], [address], [facility] 9 11:58:23 Chronic obstructive pulmonary disease 60585248 Active 2018 Denis Andino MD [address], [address], [place], [address], [facility] 9 11:58:30 Asthma 640017889 Active 2018 Denis Andino MD [address], [address], [place], [address], [facility] 9 11:58:36 Osteoarthri tis 643837965 Active 2018 Denis Andino MD [address] [facility], [address], [place], [address], [facility] 9 11:58:52 Diabetes mellitus 96840460 Active 2018 Denis Andino MD [address] [facility], [address], [place], [address], [facility] 9 11:59:04 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 Denis Andino MD [address] [facility], [address], [place], [address], [facility] 9 11:59:22 Essential hypertensio n 81705254 Active 2018 Denis Andino MD [address] [facility], [address], [place], [address], [facility] 9 12:02:34 Gout 15637923 Active 2018 Denis Andino MD [address] [facility], [address], [place], [address], [facility] 9 12:02:51 Notes:Some problems listed i n Documents: #[id number], #[id number], #[id number], #[id number], #[id number], #[id number], #[id number] could not be added to this patient's [...] Vitals Date Recorded Body height Heart rate Body temperature Respiratory rate Systolic blood pressure Diastolic blood pressure Provider Name and Address Organization Details Last Updated DateTime 5 157.48 cm 76 /min 98 [degF] 18 /min 120 mm[Hg] 70 mm[Hg] SARAHI MCFARLAND [address], [place], [address] , [facility] 5 22:33:58 Date Recorded Body height Heart rate Respiratory rate Body temperature Oxygen saturation Oxygen saturation in Arterial blood by Pulse oximetry Systolic blood pressure Diastolic blood pressure Provider Name and Address Organization Details Last Updated DateTime 5 157.48 cm 72 /min 18 /min 97.8 [degF] 97 % 97 % 136 mm[Hg] 72 mm[Hg] CUONG JONES CNP [address] , [address], [place], [address], [facility] 5 13:37:46 Date Recorded Body height Heart rate Respiratory rate Body temperature Systolic blood pressure Diastolic blood pressure Provider Name and Address Organization Details Last Updated DateTime 4 157.48 cm 68 /min 18 /min 97.5 [degF] 130 mm[Hg] 70 mm[Hg] SARAHI MCFARLAND [address] , [address], [place], [address], [facility] 4 15:16:18 Social History Question Answer Notes LastModified by [employer] Details LastModified Time Tobacco Smoking Status Former Smoker smoked 2 ppd until 10 yrs ago. Tami Koroma MD [address] [facility], [address], [place], [address], [facility] 12/28/2020 21:43:37 Do You Have An Advance Directive? Yes Information not available 12/24/2020 What Is Your Code Status? Full Code Information not available 12/24/2020 Where Do You Live? [facility] Information not available 09/20/2022 Legal Guardian? No Informati on not available 12/28/2020 Do You Have A Medical Power Of Application Technical Designer? Yes Information not available 12/28/2020 What Was The Date Of Your Most Recent Tobacco Screening? 05/23/2023 Information not available 05/24/2023 Do You Have An Out Of Hospital DNR? No Information not available 09/20/2022 What Is Your Relationship Status? Information not available 05/24/2023 How Much Tobacco Do You Smoke? No Information not available 12/28/2020 Has Tobacco Cessation Counseling Been Provided? No N/a As Pt. No Longer Smokes Information not available 12/28/2020 How Many Years Have You Smoked Tobacco? 25 [id number] Information not available 12/18/2019 Sex: Unknown Functional Status Question Answer Note LastModified by Organizat ion Details LastModified Time Do you use any illicit or recreational drugs? No Information not available 09/20/2022 Do you or have you ever used any other forms of tobacco or nicotine? No Information not available 12/28/2020 What is your level of alcohol consumption? None hx of heavy use Information not available 12/28/2020 Mental Status None recorded. Family History Nothing Reported Notes:father-renal failure m other- fatty liver, ovarian ca brother- colon cancer maternal aunt-ovarian ca, breast ca Medical History No medical history recorded. Gynecological HistoryNo gynecological history recorded. Obstetrics History GPAL:G 0 P 0 0 0 0 Immunizations Vaccine Type Date Status Note Provider Arian e and Address Organization Details Recorded Time COVID-19, mRNA, LNP-S, PF, 30 mcg/0.3 mL dose 1 completed Laisha Ash [facility] 03/18/2021 12:20:45 COVID-19, mRNA, LNP-S, PF, 30 mcg/0.3 mL dose 1 completed Laisha Ash null, [facility] 03/18/2021 12:20:49 Influenza, split virus, quadrivalent, preservative 2 completed Seema null, [facility] 12/16/2021 13:31:41 Influenza, adjuvanted, quadrivalent, PF 3 completed Erendira Pathak null, [facility] 03/10/2023 12:24:16 Past Encounters Encounter ID Performer Location Encounter Start Date Encounter Closed Date Diagnosis/Indication Diagnosis SNOMED-CT Code Diagnosis ICD10 Code Diagnosis Note [id number] WILFREDO WATTERS [facility] [address] [place] [address] 02/27/2018 08:51:51 03/24/2018 10:48:16 Chest wall pain 659349661 R07.89 ACS ruled out.monito r for sx. Chronic ob structive pulmonary disease 23274140 J44.9 stable, no sx. Continue:s pirivasing ulairalbut jone prn Physical deconditioning 4383581688 9102 R68.89 admit to [facility] rehab[facility]/OT eval Osteoarthritis 350630709 M19.90 stable, continue:n aproxen bidtylenol prn Fibromyalgia 128553686 M 79.7 stable, chroniclyr icanaproxe ngabapenti ntramadol prn History of benign neoplasm of brain 940988863 Z86.011 unknown disease or dx.will contact pcps office for further info. Essential hypertension 04328526 I10 stable continue:c ozaarlasix ASA Peripheral nerve disease 535934821 G64 stable continue:l yricagabap entintrama dol prn Generalize d anxiety disorder 79683946 F41.1 stableklon opin prn Gout 27965688 M10.9 stable, no sx. Continue:a llopurinol scheduled colchicine scheduled [id number] Denis Andino MD [facility] [address] [place] [address] 03/03/2018 11:49:38 03/24/2018 08:46:23 Atypical chest pain 132314163 R07.89 ruled out for cardiac etiology in [facility] [place] 13802617 R53.1 PT OT eval and treatmonit or fall risk Chronic pain 40750176 G8 9.29 carrying dxsent from [facility] ongabapent in 800 mg qid lyrica 75 mg bidwill d/c lyricamoni tor for sx control Chronic ob structive pulmonary disease 65676849 J41.1 carrying dxdistant hx tobaccomon itor pulmonary status Asthma 176768144 J45.30 monitor for sx Osteoarthritis 134034481 M15.0 chronic painmonito r with lyrica d/c'ed Diabetes mellitus 859615 09 E11.9 metformin 1000 mg bidmonitor blood glucose Gout 40689236 M10.09 colchicine 0.6 mg bidmonitor for sx control Essential hypertension 59651529 I10 cozaar 50 mg qdlasix 20 mg qdstartnor vasc 5 [place] [id number] WILFREDO WATTERS [employer] [address] [place] [address] 03/06/2018 09:10:29 03/24/2018 09:06:35 Atypical chest pain 713251129 R07.89 ruled out for cardiac etiology in [facility] [place] 17055216 R53.1 PT OT eval and treatmonit or fall risk Chronic pain 88118642 G8 9.29 carrying dx- h/o fibromyalg ia, peripheral neuropathy and OA, continuega bapentin 800 mg qidnaproxe ntramadolk lonopin lyrica d/c'd given pt also on jg.monit or for sx control Chronic ob structive pulmonary disease 56501410 J41.1 carrying dxdistant hx tobaccomon itor pulmonary status Asthma 814247836 J45.30 monitor for sx Diabetes mellitus 250628 09 E11.9 metformin 1000 mg bidmonitor blood glucose Gout 50151155 M10.09 on chronic colchicine and allopurino l. unclear if foot pain is gout flare, will check uric acid level. Essential hypertension 37291444 I10 stable,no sx.continu e lasix, cozaar, norvasc. Pain in both feet 537633 8009 2719660 M79.671 M79.672 unclear etiology. joints not warm, swollen, red and pt already on colchicine and allopurino l as well as naproxen, tramadol and gabapentin . check uric acid level along with todays labs that are pending. add lidocaine cream for now to help with pain. [id number] WILFREDO WATTERS [employer] [address] [place] [address] 03/14/2018 11:25:40 03/24/2018 09:45:28 Pain in both feet 1539779678 2495964 M79.671 M79.672 unclear etiology. joints not warm, swollen, red and pt already on colchicine and allopurino l as well as naproxen, tramadol and gabapentin . uric acid was neg. likely related to her h/o fibromyalg ia and chronic pain. Recc continue current regimen and PT/ wt bearing activity will help as well. has idocaine cream for now to help with pain. Chronic pain 25522383 G8 9.29 carrying dx- h/o fibromyalg ia, peripheral neuropathy and OA, continuega bapentin 800 mg qidnaproxe ntramadolk lonopin lyrica d/c'd given pt also on jg.monit or for sx control Atypical chest pain 1025 05067 R07.89 ruled out for cardiac etiology in [facility] at facility [place] 09521321 R53.1 PT OT eval and treatmonit or fall risk Chronic ob structive pulmonary disease 24434552 J41.1 carrying dxdistant hx tobaccomon itor pulmonary status Asthma 183057620 J45.30 monitor for sx Diabetes mellitus 382460 09 E11.9 metformin 1000 mg bidmonitor blood glucose Essential hypertension 18558284 I10 stable,no sx.continu e lasix, cozaar, norvasc. [id number] WILFREDO WATTERS [employer] [address] [facility] [address] 03/17/2018 11:44:34 03/24/2018 10:22:41 Atypical chest pain 171127831 R07.89 ruled out for cardiac etiology in [facility] at facility [place] 55430843 R53.1 PT OT eval and treatmonit or fall risk Essential hypertension 30795849 I10 stable,no sx.continu e lasix, cozaar, norvasc.in crease norvasc to 10mg/d and monitor. [id number] WILFREDO WATTERS [employer] [address] [facility] [place] [address] 03/23/2018 11:27:44 04/03/2018 12:13:05 Essential hypertension 31814569 I10 stable,no sx.continu e lasix, cozaar, norvasc. Atypical chest pain 1025 12201 R07.89 ruled out for cardiac etiology in hospitalno complaints recently. [place] 14683841 R53.1 completed rehab, ready for d/c home. Chronic ob structive pulmonary disease 65549740 J41.1 carrying dxdistant hx tobaccomon itor pulmonary status Diabetes mellitus 784129 09 E11.9 metformin 1000 mg bidsugars stable here.f/u with pcp after d/c. Chronic pain 09970632 G8 9.29 carrying dx- h/o fibromyalg ia, peripheral neuropathy and OA, continuega bapentin 800 mg qidnaproxe ntramadolk lonopin lyrica d/c'd given pt also on jg.monit or for sx control [id number] STEPHY TRAVIS ATNGELA [address] [place] [address] [place] [address] 12/23/2020 11:54:48 12/25/2020 15:23:14 Muscle weakness 20030827 M62.81 PT OT eval and treat Asthma 230490773 J45.30 singulair 10 mg dailyalbut jone mdi q4 hr prn Chronic ob structive pulmonary disease 71373925 J41.1 albuterol mdi q4hr prn Chronic pain 45153056 G8 9.29 tramadol 50 mg q6hr prngabapen tin 800 mg qid Diabetes mellitus 801122 09 E11.9 victoza 1.8 mg dailyglarg ine 24 units hsmetformi n 1000 mg bidlispro sliding scale Essential hypertension 17774325 I10 losartan 50 mg dailyspiro nlactone 25 mg dailylasix 20 mg bidmonitor bp Gout 67289101 M10.09 allopurino l 300 mg dailycolch ecine 0.6 mg daily Osteoarthritis 360032712 M15.0 CaD 600/400 dailytrama dol 50 mg q6hr prn Falls 854490149 R29.6 PT OT eval and treatfall precaution sfrequent safety checks Hyperlipidemia 85187118 E78.5 atorvastat in 20 mg daily Anxiety 38352253 F41.9 clonazapam n0.5 mg q12 hr prn [id number] Tami Koroma MD [address] [place] [address] 12/24/2020 19:12:07 12/30/2020 12:30:17 Muscle weakness 34406354 M62.81 Very deconditio john.Needs PT/OT as above.Cont inue fall precaution s.Monitor for safety. Asthma 286071187 J45.30 No current sxs.Contin ue singulair 10 mg qd and albuterol MDI 2 puffs q 4 hrs prn.Monito r resp. status Chronic ob structive pulmonary disease 84858387 J41.1 As above. Diabetes mellitus 754836 09 E11.42 Good control on victoza 1.8 mg qd, lantus 24U qd, metformin 1000 mg BID and SSI.Monito r accuchecks QID. Essential hypertension 15238725 I10 Borderline control on current meds. Will continue for now, but adilson need to make adjustment s.Continue losartan 50 mg qd, spironolac tone 25 mg qd and lasix 20 mg BID.Monito r BP and labs Gout 06192879 M10.09 Continue allopurino l 300 mg qd and colchicine 0.6 mg qd.Monitor sxs. Osteoarthritis 408203635 M15.0 With chronic pain.Connie nue meds and rehab as above. Falls 094567369 R29.6 as above. Hyperlipidemia 31834737 E78.49 Continue atorvastat in 20 mg qd.Monitor labs as outpt. Anxiety 63407366 F41.1 Continue clonazapam 0.5 mg q 12 hrs prnMonitor mood.Psych consult prn. Pain of ri ght ankle joint 3195270308 1076053 M25.571 As above. Pain of ri ght hip joint 0234459201 43981 M25.551 No acute injury found.Cont inue gabapentin 800 mg QID and tramadol 50 mg q 6 hrs prn.Contin ue PT/OT strengthen ing, balance, gait training, safety and function.M onitor sxs. Osteoporosis 86015913 M8 1.0 Continue Ca/D 600/400 mg qd.Monitor as outpt. Paresthesia of hand 3090 71316 R20.2 Concerning for pinched nerve in neck or brachial plexus. Could also be c/w neuropathy from EtOH abuse in the past or CVA.Will get head and neck CT to evaluate. [id number] STEPHY TRAVIS [address] [place] [address] 12/29/2020 11:06:01 12/31/2020 16:10:33 Chronic obstructive pulmonary disease 42147074 J41.1 albuterol mdi q4hr prn Paresthesia of hand 3090 23943 R20.2 Concerning for pinched nerve in neck or brachial plexus. Could also be c/w neuropathy from EtOH abuse in the past or CVA. ordered neckhead CT to evaluate Muscle weakness 14412098 M62.81 PT OT eval and treat [id number] CATHLEEN MICHEL GENARO TANGELA [address] [place] [address] 01/01/2021 09:27:04 01/02/2021 16:16:11 Paresthesia of hand 555206661 R20.2 DDx: pinched nerve, trigger point, brachial plexus injuryCoul d also be c/w neuropathy from EtOH abuse in the past or CVA. 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 if continues [id number] STEPHY TRAVIS [address] [place] [address] 01/06/2021 11:02:16 01/08/2021 15:54:44 Chronic obstructive pulmonary disease 93503717 J41.1 albuterol mdi q4hr prnmonitor resp status Muscle weakness 96415676 M62.81 PT OT eval and treat [id number] STEPHY TRAVIS [address] [place] [address] 01/13/2021 08:26:54 01/20/2021 15:54:42 Pain of right hip joint 3917538439 54763 M25.551 No acute injury found.Cont inue gabapentin 800 mg QID and tramadol 50 mg q 6 hrs prn.Contin ue PT/OT strengthen ing, balance, gait training, safety and function.M onitor sxs. Pain of ri ght ankle joint 5223140408 0382427 M25.571 As above. Paresthesia of hand 3090 71635 R20.2 Concerning for pinched nerve in neck or brachial plexus. Could also be c/w neuropathy from EtOH abuse in the past or CVA.Will get head and neck CT to evaluate. Muscle weakness 81570797 M62.81 Very deconditio john.Needs PT/OT as above.Cont inue fall precaution s.Monitor for safety. Asthma 031581927 J45.30 No current sxs.Contin ue singulair 10 mg qd and albuterol MDI 2 puffs q 4 hrs prn.Monito r resp. status Chronic ob structive pulmonary disease 14204145 J41.1 As above. Diabetes mellitus 903309 09 E11.42 Good control on victoza 1.8 mg qd, lantus 24U qd, metformin 1000 mg BID and SSI.Monito r accuchecks QID. Essential hypertension 97162547 I10 Borderline control on current meds. Will continue for now, but adilson need to make adjustment s.Continue losartan 50 mg qd, spironolac tone 25 mg qd and lasix 20 mg BID.Monito r BP and labs Gout 54990727 M10.09 Continue allopurino l 300 mg qd and colchicine 0.6 mg qd.Monitor sxs. Osteoarthritis 304937272 M15.0 With chronic pain.Connie nue meds and rehab as above. Falls 610332747 R29.6 as above. Hyperlipidemia 83862463 E78.49 Continue atorvastat in 20 mg qd.Monitor labs as outpt. Anxiety 94044285 F41.1 Continue clonazapam 0.5 mg q 12 hrs prnMonitor mood.Psych consult prn. Osteoporosis 48090017 M8 1.0 Continue Ca/D 600/400 mg qd.Monitor as outpt. [id number] JAREK CHARANJIT, SCIENCE FACULTY MEMBER [address] [address] 01/20/2021 09:50:56 01/23/2021 11:16:04 Paresthesia of hand 218358214 R20.2 Concerning for pinched nerve in neck or brachial plexus. Could also be c/w neuropathy from EtOH abuse in the past or CVA.neuro consult-pr obable nerve damage with minimal possiblity of improvemen t Chronic pain 63350898 G8 9.29 tramadol 50 mg q6hr prngabapen tin 800 mg qid Osteoarthritis 434208966 M15.0 With chronic pain.Connie nue meds and rehab as above. [id number] JAREK BOLANOSESTEBAN, SCIENCE FACULTY MEMBER [address] [address] 01/27/2021 10:46:36 01/30/2021 13:02:45 Pain of right hip joint 0647799927 71026 M25.551 No acute injury found.Cont inue gabapentin 800 mg QID and tramadol 50 mg q 6 hrs prn.Contin ue PT/OT strengthen ing, balance, gait training, safety and function.M onitor sxs. Pain of ri ght ankle joint 1617016388 8810429 M25.571 As above. Paresthesia of hand 3090 67985 R20.2 Concerning for pinched nerve in neck or brachial plexus. Could also be c/w neuropathy from EtOH abuse in the past or CVA.Will get head and neck CT to evaluate. Muscle weakness 69702845 M62.81 Very deconditio john.Needs PT/OT as above.Cont inue fall precaution s.Monitor for safety. Asthma 778742493 J45.30 No current sxs.Contin ue singulair 10 mg qd and albuterol MDI 2 puffs q 4 hrs prn.Monito r resp. status Chronic ob structive pulmonary disease 47452190 J41.1 As above. Diabetes mellitus 617431 09 E11.42 Good control on victoza 1.8 mg qd, lantus 24U qd, metformin 1000 mg BID and SSI.Monito r accuchecks QID. Essential hypertension 35526718 I10 Borderline control on current meds. Will continue for now, but adilson need to make adjustment s.Continue losartan 50 mg qd, spironolac tone 25 mg qd and lasix 20 mg BID.Monito r BP and labs Gout 83332911 M10.09 Continue allopurino l 300 mg qd and colchicine 0.6 mg qd.Monitor sxs. Osteoarthritis 750535198 M15.0 With chronic pain.Connie nue meds and rehab as above. Falls 685761339 R29.6 as above. Hyperlipidemia 67884248 E78.49 Continue atorvastat in 20 mg qd.Monitor labs as outpt. Anxiety 03493784 F41.1 Continue clonazapam 0.5 mg q 12 hrs prnMonitor mood.Psych consult prn. Osteoporosis 83170810 M8 1.0 Continue Ca/D 600/400 mg qd.Monitor as outpt. [id number] Tami Koroma MD [address] [address] 02/16/2021 16:25:03 02/24/2021 11:45:46 Pain of right hip joint 1450554043 09989 M25.551 Continues with pain, but improving. Continue gabapentin 800 mg QID and tramadol 50 mg q 6 hrs prn.Contin ue PT/OT strengthen ing, balance, gait training, safety and function.M onitor sxs. Pain of ri ght ankle joint 6913097136 8215988 M25.571 As above. Paresthesia of hand 3090 38724 R20.2 Per neuro likely to be permanent nerve damage.Con tinue rehab and monitor for improvemen t. Muscle weakness 22632084 M62.81 Continues to be weak.Needs PT/OT as above.Cont inue fall precaution s.Monitor for safety. Asthma 354161505 J45.30 No current sxs.Contin ue singulair 10 mg qd and albuterol MDI 2 puffs q 4 hrs prn.Monito r resp. status Chronic ob structive pulmonary disease 87540028 J41.1 As above. Diabetes mellitus 279706 09 E11.42 Good control on victoza 1.8 mg qd, lantus 24U qd, metformin 1000 mg BID and SSI.Monito r accuchecks QID. Essential hypertension 07307103 I10 Control has improved since here.Connie nue losartan 50 mg qd, spironolac tone 25 mg qd and lasix 20 mg BID.Monito r BP and labs Gout 60679983 M10.09 Continue allopurino l 300 mg qd and colchicine 0.6 mg qd.Monitor sxs. Osteoarthritis 902951914 M15.0 With chronic pain.Connie nue meds and rehab as above. Falls 503730317 R29.6 as above. Hyperlipidemia 75888434 E78.49 Continue atorvastat in 20 mg qd.Monitor labs as outpt. Anxiety 75606218 F41.1 Continue clonazapam 0.5 mg q 12 hrs prnMonitor mood.Psych consult prn. Osteoporosis 23875978 M8 1.0 Continue Ca/D 600/400 mg qd.Monitor as outpt. [id number] JAREK DONOHUE NP [address] [address] 03/02/2021 11:43:23 03/04/2021 13:35:52 SARS-CoV-2 844834409 U07.1 02/28 covid positiveen courage fluid intakeivf for anorexiaco nsider decadron for anorexia [id number] Denis Andino MD [address] [address] 03/03/2021 13:10:53 03/05/2021 14:14:24 COVID-19 926552726 U07.1 See HPIPositiv e covid dxmonitor respirator [...] nephro toxic meds as ablenephro consult prn [id number] JAREK DONOHUE NP [address] [address] 03/04/2021 08:58:02 03/06/2021 15:44:16 COVID-19 780617243 U07.1 03/01 covid positivePo sitive covid dxmonitor [...] nephro toxic meds as ablenephro consult prn [id number] JAREK DONOHUE NP [address] [address] 03/05/2021 13:06:31 03/10/2021 17:44:44 COVID-19 558911484 U07.1 03/01 covid positivePo sitive covid dxmonitor [...] nephro toxic meds as ablenephro consult prn [id number] JAREK DONOHUE NP [address] [address] 03/06/2021 13:32:58 03/11/2021 09:30:32 COVID-19 263386216 U07.1 03/01 covid positivePo sitive covid dxmonitor [...] nephro toxic meds as ablenephro consult prn [id number] JAREK DONOHUE NP [address] [address] 03/09/2021 10:54:29 03/11/2021 10:36:27 COVID-19 067576356 U07.1 03/01 covid positivePo sitive covid dxmonitor [...] nephro toxic meds as ablenephro consult prn [id number] Denis Andino MD [address] [address] 5 03/10/2021 12:06:21 03/12/2021 16:09:17 COVID-19 917418244 U07.1 Patient covid positiveco ntinue supportive caremonito r PO intake and need for supplement al O9shhlusrd y no increase in work of breathingt o ED for acute decompensa tion Chronic renal failure 90 654395 N18.31 appears to have baseline renal failure stage 3monitor renal functionne phro consult prnavoid nephrotoxi c meds as able [id number] JAREK DONOHUE NP [address] [address] 03/12/2021 13:43:56 03/18/2021 13:55:07 Pain of right hip joint 2765437189 24858 M25.551 No acute injury found.jg pentin 800 mg QIDtramado l 50 mg q 6 hrs prn.Contin ue PT/OT strengthen ing, balance, gait training, safety and function.M onitor sxs. Pain of ri ght ankle joint [id number] 1265598 M25.571 As above. Paresthesia of hand 3090 86295 R20.2 Concerning for pinched nerve in neck or brachial plexus. Could also be c/w neuropathy from EtOH abuse in the past or CVA. Muscle weakness 07603542 M62.81 Very deconditio john.Needs PT/OT as above.Cont inue fall precaution s.Monitor for safety. Asthma 468981822 J45.30 No current sxs.singul air 10 mg qdalbutero l MDI 2 puffs q 4 hrs prn.Monito r resp. status Chronic ob structive pulmonary disease 02905882 J41.1 As above. Diabetes mellitus 399110 09 E11.42 Good control on victoza 1.8 mg qd,lantus 24U qd,metform in 1000 mg BID and SSI.Monito r accuchecks QID. Essential hypertension 66145827 I10 Borderline control on current meds. Will continue for now, but adilson need to make adjustment s.losartan 50 mg qd,spirono lactone 25 mg qdlasix 40 mg dailyMonit or BP and labs Gout 83972101 M10.09 allopurino l 300 mg qdcolchici ne 0.6 mg qd.Monitor sxs. Osteoarthritis 194167191 M15.0 With chronic pain.Connie nue meds and rehab as above. Falls 818764876 R29.6 as above. Hyperlipidemia 63651194 E78.49 atorvastat in 20 mg qd.Monitor labs as outpt. Anxiety 86773613 F41.1 clonazapam 0.5 mg q 12 hrs prnMonitor mood.Psych consult prn. Osteoporosis 75158306 M8 1.0 Ca/D 600/400 mg qd.Monitor as outpt. COVID-19 316455959 U07.1 03/01 covid positive-r ecovered by date, [...] nephro toxic meds as ablenephro consult prn [id number] JAREK DONOHUE, STEPHY HONEYCUTT [address] [place] [address] rd [place] [address] 03/19/2021 09:03:16 03/25/2021 08:23:39 Pain of right hip joint 8192880718 25747 M25.551 No acute injury found.jg pentin 800 mg QIDtramado l 50 mg qd prn.Contin ue PT/OT strengthen ing, balance, gait training, safety and function.M onitor sxs. Pain of ri ght ankle joint 8514154088 7016786 M25.571 As above. Paresthesia of hand 3090 53963 R20.2 Concerning for pinched nerve in neck or brachial plexus. Could also be c/w neuropathy from EtOH abuse in the past or CVA.Will get head and neck CT to evaluate. Muscle weakness 45374617 M62.81 Very deconditio john.Needs PT/OT as above.Cont inue fall precaution s.Monitor for safety. Asthma 267901664 J45.30 No current sxs.singul air 10 mg qdalbutero l MDI 2 puffs q 4 hrs prn.Monito r resp. status Chronic ob structive pulmonary disease 92839047 J41.1 As above. Diabetes mellitus 702440 09 E11.42 Good control on victoza 1.8 mg qd,lantus 24U qd,metform in 1000 mg BID and SSI.Monito r accuchecks QID. Essential hypertension 59275527 I10 Borderline control on current meds. Will continue for now, but adilson need to make adjustment s.losartan 50 mg qd,spirono lactone 25 mg qdlasix 40 mg daily.Kaylen tor BP and labs Gout 51554920 M10.09 allopurino l 300 mg qdcolchici ne 0.6 mg qd.Monitor sxs. Osteoarthritis 896379911 M15.0 With chronic pain.CaD 600/400 bidContinu e meds and rehab as above. Falls 785908394 R29.6 PT OT eval and treatfall precaution sfrequent safety checks Hyperlipidemia 51535651 E78.49 atorvastat in 20 mg qd.Monitor labs as outpt. Anxiety 67645291 F41.1 clonazapam 0.5 mg q 12 hrs prnMonitor mood.Psych consult prn. Osteoporosis 48402737 M8 1.0 Ca/D 600/400 mg bidMonitor as outpt. SARS-CoV-2 038557154 U07 .1 02/28 covid positive-r ecovered by dateencour age fluid intakeivf for anorexiaco nsider decadron for anorexia [id number] Denis Andino MD [address] [address] 05/20/2021 11:51:35 05/22/2021 13:20:41 Essential hypertension 80133702 I10 losartan 50 mg qdlasix 40 mg qdspironol actone 25 mg qdmonitor bp and need to titrate Chronic ki dney disease stage 3A 896201686 N18.31 patient appears with baseline renal failureon above medsmonito r renal function and nephro consult prn Falls 222992231 R29.6 goal in assisted [facility] fall risktherap y reeval prn [id number] JAREK DONOHUE NP [address] [address] 06/29/2021 13:51:21 07/01/2021 14:54:55 Edema of lower extremity 268739146 R60.0 losartan 50 mg qdlasix 40 mg qd-add 20 mg at suppertime kcl 20 meq dailyspiro nolactone 25 mg qd [id number] Tami Koroma MD [address] [address] 07/02/2021 19:25:14 07/14/2021 15:26:55 Edema of lower extremity 188774535 R60.0 Continue meds as above.Elev ate as much as able.Monit or. Essential hypertension 82289154 I10 Good control on losartan 50 mg qd, lasix 40 mg qd, and spironolac tone 25 mg qdContinue KCl 20 meq qd to prevent hypokalemi a.Monitor BP and labs Chronic ki dney disease stage 3A 444639987 N18.31 At baseline.C ontinue to avoid nephrotoxi c meds as able.Monit or labs.Renal consult prn. Falls 132514748 R29.6 Not yet at goal.Connie nues to need assist for ambulation .Continue PT/OT for strengthen ing, balance, gait training, safety and function.C ontinue fall precaution s.Monitor for safety. Neuritis o f right ulnar nerve 8714749155 2130839 G56.21 Will have OT get pt padding for right elbow.Tx as needed. [id number] JAREK DONOHUE, [place] [address] 07/06/2021 14:43:56 07/08/2021 14:31:46 Hemorrhoids 57550644 K64.9 soft not engorged, flat no bleeding Falls 163548193 R29.6 PT OT eval and treatfall precaution sfrequent safety checks [id number] JAREK DONOHUE STEPHY [facility] [address] [place] [address] [place] [address] 08/27/2021 12:05:50 09/01/2021 15:16:16 Essential hypertension 63637559 I10 Good control onlosartan 50 mg qd,lasix 40 mg qd and 20 mg afternoon, spironolac tone 25 mg qdKCl 20 meq qd to prevent hypokalemi a.Monitor BP and labs Chronic ki dney disease stage 3A 030419914 N18.31 At baseline.C ontinue to avoid nephrotoxi c meds as able.Monit or labs.Renal consult prn. Edema of l ower extremity 586978459 R60.0 lasix 40 mg am, 20 mg afternoonE levate as much as able.compr ession stockingsM onitor. Neuritis o f right ulnar nerve 2054691570 7298957 G56.21 Will have OT get pt padding for right elbow.Tx as needed. Anxiety 05263642 F41.1 Monitor mood.Psych consult prn. Asthma 507906348 J45.30 No current sxs.singul air 10 mg qdalbutero l MDI 2 puffs q 4 hrs prn.Monito r resp. status Chronic ob structive pulmonary disease 23239999 J41.1 As above. Chronic pain 82067826 G8 9.29 tramadol 50 mg q12hr prngabapen tin 800 mg qid Diabetes mellitus 619895 09 E11.42 Good control on victoza 1.8 mg qd,lantus 24U qd,metform in 1000 mg BID and SSI.Monito r accuchecks QID. Gout 58014757 M10.09 allopurino l 300 mg qdcolchici ne 0.6 mg qd.Monitor sxs. Hyperlipidemia 89301818 E78.49 atorvastat in 20 mg qd.Monitor labs as outpt. Osteoarthritis 095792678 M15.0 With chronic pain.CaD 600/400 bidContinu e meds and rehab as above. SARS-CoV-2 198157610 U07 .1 02/28 covid positive-r ecovered by dateencour age fluid intakeivf for anorexiaco nsider decadron for anorexia [id number] Jazmin Orozco MD [address] [place] [address] 10/13/2021 07:44:45 10/15/2021 12:38:49 Asthenia 73083136 R53.1 PT/OT/EMBEDDED LINUX ENGINEER prnphysiat ry prnwill monitor and support as needed Chronic pain 74470129 G8 9.29 physiatry prngabapen tin 800 mg [id number] 650 mg q6h prntramado l 50 mg q12h prnwill monitor Mixed anxi ety and depressive disorder 199595468 F41.8 clonazepam 0.5 mg q12h prn (14 day trial through 10/19/21)wi ll monitorHDB H prn (Patient has declined meds for depression in past.) Diabetes mellitus 416886 09 E11.42 Lantus 24U at hsinsulin aspart per sliding scalemetfo rmin 1000 mg bidVictoza 1.8 mg SC dailywill monitor Essential hypertension 28969834 I10 furosemide 40 mg daily in morning and 20 mg in afternoonl osartan 50 mg dailyspiro nolactone 25 mg dailywill monitor Gout 17536238 M10.09 allopurino l 300 mg dailycolch icine 0.6 mg dailywill monitor Hyperlipidemia 66114593 E78.49 atorvastat in 20 mg dailywill monitor Chronic ob structive pulmonary disease 29599876 J41.0 albuterol HFA: 2 puffs q4h prnmontelu kast 10 mg dailywill monitor Peripheral edema 6147836 00 R60.0 furosemide 40 mg in morning and 20 mg in afternoons pironolact one 25 mg dailywill monitor [id number] JAREKJese DONOHUE NP [address] [address] 11/25/2021 14:31:15 12/01/2021 16:03:01 Cellulitis of foot 355989497 L03.119 monitor for improvment keflex 500 mg bid to 7 days [id number] JAREK DONOHUE NP [address] [address] 11/30/2021 12:44:52 12/02/2021 09:37:38 SARS-CoV-2 760813345 U07.1 11/28 covid positiveen courage fluid intakeivf for anorexiaco nsider decadron for sobsend to ED for decompensa tion Cellulitis of foot 56601 6007 L03.119 monitor for improvment keflex 500 mg bid to 7 days [id number] JAREK DONOHUE NP [address] [address] 12/02/2021 13:30:19 12/04/2021 15:05:52 SARS-CoV-2 094087918 U07.1 11/28 covid positiveen courage fluid intakeivf for anorexiaco nsider decadron for sobsend to ED for decompensa tion Cellulitis of foot 69421 6007 L03.119 monitor for improvment -recovered keflex 500 mg bid to 7 daysvascul ar appt as now her feet are cool and purple [id number] JAREK DONOHUE NP [address] [address] 12/03/2021 13:12:39 12/08/2021 14:54:41 SARS-CoV-2 500340559 U07.1 11/28 covid positiveen courage fluid intakeivf for anorexiaco nsider decadron for sobsend to ED for decompensa tion Cellulitis of foot 33553 6007 L03.119 monitor for improvment -recovered cellulitis keflex 500 mg bid to 7 daysvascul ar appt as now her feet are cool and purple [id number] JAREK DONOHUE [place] [address] 12/04/2021 14:01:40 12/08/2021 15:20:41 Cellulitis of foot 531577723 L03.119 monitor for improvment -recovered cellulitis keflex 500 mg bid to 7 daysvascul ar appt as now her feet are still slightly dusky Edema of l ower extremity 948840006 R60.0 lasix 40 mg am, 20 mg afternoonE levate as much as able.compr ession stockingsM onitor. SARS-CoV-2 115065508 U07 .1 11/28 covid positiveen courage fluid intakeivf for anorexiaco nsider decadron for sobsend to ED for decompensa tion [id number] JAREK DONOHUE NP GENARO HONEYCUTT [address] [place] [address] 12/07/2021 13:15:52 12/10/2021 15:09:54 SARS-CoV-2 104991242 U07.1 11/28 covid positiveen courage fluid intakeivf for anorexiaco nsider decadron for sobsend to ED for decompensa tion Edema of l ower extremity 446363747 R60.0 lasix 40 mg am, 20 mg afternoonE levate as much as able.compr ession stockingsM onitor. [id number] JAREK DONOHUE NP [facility] [address] [place] [address] 5 12/09/2021 13:10:43 12/11/2021 15:45:06 Peripheral vascular disease 854852256 I73.9 vascular appt 12/10 SARS-CoV-2 115184732 U07 .1 11/28 covid positive-a symptomati c, recovered by dateencour age fluid intakeivf for anorexiaco nsider decadron for sobsend to ED for decompensa tion [id number] JAREK DONOHUE NP [facility] [address] [place] [address] 5 01/18/2022 13:22:44 01/20/2022 20:31:17 Falls 486618127 R29.6 PT OT eval and treatfall precaution sfrequent safety checks Pain of left wrist 43560 39295 90567 M25.532 tylenol prnice-kaitlin vate prnxray of left wrist [id number] Jazmin Orozco MD [address] [place] [address] 01/29/2022 06:23:17 02/02/2022 15:38:51 Chronic obstructive pulmonary disease 85357812 J41.0 albuterol HFA: 2 puffs q4h prnmontelu kast 10 mg dailywill monitor Diabetes mellitus 421829 09 E11.42 Lantus 24U at hsinsulin aspart per sliding scalemetfo rmin 1000 mg bidVictoza 1.8 mg SC dailywill monitor Essential hypertension 10568443 I10 furosemide 40 mg daily in morning and 20 mg in afternoonl osartan 50 mg dailyspiro nolactone 25 mg dailywill monitor Gout 58636335 M10.09 allopurino l 300 mg dailycolch icine 0.6 mg dailywill monitor SARS-CoV-2 106924221 U07 .1 tested positive 11/28/21ha d asymptomat ic coursereco veredwill continue to monitor Chronic pain 44613348 G8 9.29 physiatry prngabapen tin 800 mg f4eHALA 650 mg q6h prntramado l 50 mg at hswill monitor Mixed anxi ety and depressive disorder 215866092 F41.8 clonazepam 0.5 mg at hswill monitorHDB H prn (Patient has declined meds for depression in past.) Hyperlipidemia 23002270 E78.49 atorvastat in 20 mg dailywill monitor [id number] JAREK DONOHUE NP [address] [place] [address] 03/01/2022 14:00:55 03/03/2022 09:51:32 Edema of lower extremity 483157382 R60.0 lasix 40 mg am, 40 mg afternoonE levate as much as able.compr ession stockingsM onitor. Chronic pain 24823923 G8 9.29 tramadol 50 mg q12hr prngabapen tin 800 mg qid Muscle weakness 37062108 M62.81 Very deconditio john againNeeds PT/OT as above.Cont inue fall precaution s.Monitor for safety. Anxiety 44204036 F41.1 Monitor mood.Psych consult prn. [id number] JAREKJese DONOHUE NP [address] [address] 03/15/2022 10:51:50 03/17/2022 14:55:23 Chronic pain 27713153 G89.29 tramadol 50 mg q12hr prngabapen tin 800 mg qidxray hips and tailbone [id number] JAREKJese DONOHUE NP [address] [address] 03/17/2022 14:08:44 03/23/2022 09:31:25 Chronic pain 80578330 G89.29 tramadol 50 mg q12hr prngabapen tin 800 mg qidxray hips and tailbone-- all negative Diabetes mellitus 981196 09 E11.42 victoza 1.8 mg qd,lantus 24U qd, increase to 25unitsmet formin 1000 mg BID and SSI.Monito r accuchecks QID. [id number] JAREK STEPHY DONOHUE [address] [address] 03/25/2022 12:12:48 03/29/2022 16:21:44 Chronic obstructive pulmonary disease 26295151 J41.0 albuterol HFA: 2 puffs q4h prnmontelu kast 10 mg dailywill monitor Diabetes mellitus 264007 09 E11.42 Lantus 25U at hsinsulin aspart per sliding scalemetfo rmin 1000 mg bidVictoza 1.8 mg SC dailywill monitor Essential hypertension 32393240 I10 furosemide 40 mg daily in morning and 20 mg in afternoonl osartan 50 mg dailyspiro nolactone 25 mg dailywill monitor Gout 51298938 M10.09 allopurino l 300 mg dailycolch icine 0.6 mg dailywill monitor SARS-CoV-2 922486552 U07 .1 tested positive 11/28/21-r ecovered by [facility] coursereco krunal continue to monitor Chronic pain 20369999 G8 9.29 physiatry prngabapen tin 800 mg [id number] 650 mg q6h prntramado l 50 mg at hswill monitor Mixed anxi ety and depressive disorder 013928979 F41.8 clonazepam 0.5 mg at hswill monitorHDB H prn (Patient has declined meds for depression in past.) Hyperlipidemia 79757003 E78.49 atorvastat in 20 mg dailywill monitor [id number] JAREK DONOHUE NP [address] [address] 04/12/2022 10:48:15 04/14/2022 13:56:56 Chronic pain 22267842 G89.29 physiatry prngabapen tin 800 mg [id number] 650 mg q6h prntramado l 50 mg at q8hr amd q12hr prnwill monitor Falls 726805312 R29.6 PT OT eval and treatfall precaution sfrequent safety checks Depressive disorder 3548 9007 F32.A stop zoloftstar t lexapro 5 mg daily [id number] JAREK DONOHUE NP [address] [address] 05/19/2022 13:57:34 05/21/2022 15:29:23 Edema of lower extremity 921605404 R60.0 lasix 40 mg amElevate as much as able.compr ession stockingsM onitor. Pain in coccyx 89540441 M53.3 monitor skin for potential breakdowns kin barrier [id number] Jazmin Orozco MD [address] [address] 05/26/2022 08:55:13 06/02/2022 11:46:37 Chronic obstructive pulmonary disease 67021265 J41.0 albuterol HFA: 2 puffs q4h prnmontelu kast 10 mg dailywill monitor Chronic pain 63599967 G8 9.29 physiatry prngabapen tin 800 mg [id number] 650 mg q6h prntramado l 50 mg q8h and q12 hr prn - consider taperwill monitor Diabetes mellitus 010433 09 E11.42 Lantus 25U at hsinsulin aspart per sliding scalemetfo rmin 1000 mg bidVictoza 1.8 mg SC dailywill monitor Essential hypertension 97527725 I10 furosemide 40 mg dailylosar fuller 50 mg dailyspiro nolactone 25 mg dailywill monitor Gout 78305863 M10.09 allopurino l 300 mg dailycolch icine 0.6 mg dailywill monitor Mixed anxi ety and depressive disorder 107383901 F41.8 clonazepam 0.5 mg at hsescitalo pram 5 mg dailywill monitor Hyperlipidemia 74399433 E78.49 atorvastat in 20 mg dailywill monitor [id number] [facility] [address] [place] [address] 05/31/2022 13:07:57 06/08/2022 12:40:34 Chronic kidney disease stage 3A 436420449 N18.31 worsening due to meds and decreased po intakeD5 1/2 NS iv 50ml/hr for 3 ltrsBMP WedContinu e to avoid nephrotoxi c meds as able.Monit or labs.Renal consult prn. STEPHY Kirkland [address] [place] [address] 06/05/2022 10:47:36 06/08/2022 13:23:41 Chronic kidney disease stage 3A 195485414 N18.31 recent hospitaliz ation for CKD see AKIsee above AKIContinu e to avoid nephrotoxi c meds as able, see aboveMonit or labs.Renal consult 1-[address] Monreal Chronic ob structive pulmonary disease 11545055 J41.0 albuterol HFA: 2 puffs q4h prnmontelu kast 10 mg dailywill monitor Chronic pain 21750656 G8 9.29 physiatry prngabapen tin 800 mg [id number] 650 mg q6h prntramado l 50 mg q8h and q12 hr prn - consider taperwill monitor Diabetes mellitus 287850 09 E11.42 Lantus 25U at hsinsulin aspart per sliding scaledc in hospital for TISHA metformin 1000 mg bidVictoza 1.8 mg SC dailywill monitor Essential hypertension 35654727 I10 hold furosemide 40 mg daily until 06/11dc losartan 50 mg dailywill monitor bpbp low stable currently Gout 62532032 M10.09 allopurino l decreased to 50 mg daily on Tuesday and co lchicine 0.6 mg daily, hold for diarrheaur ic acid level on 06/07will monitor Mixed anxi ety and depressive disorder 083945260 F41.8 clonazepam 0.5 mg at hsescitalo pram 5 mg dailywill monitor Hyperlipidemia 21585747 E78.49 atorvastat in 20 mg dailywill monitor Acute kidney injury 1466 9001 N17.9 TISHA with hospitaliz ation multifacto rial with dehydratio n, lasix, losartan and diarrhea per nephrology losartan dc'd, lasix on hold until 06/11, metformin dc'd, allopurino l adjusted from 300 mg to 50 mg on mondays and f u with nephrology Dr. Monreal in 1-2 weekslabs on 06/07/22 ordered Hyperkalemia 87528222 E8 7.5 hyperkalem ia resolved and k was 6.4 in [facility] supplement discontinu ed in [facility] on 06/07, last k 4.6 on 06/04346 JAREK DONOHUE NP [address] [place] [address] 06/07/2022 14:23:16 06/10/2022 15:07:24 Acute kidney injury 36074916 N17.9 TISHA with hospitaliz ation multifacto rial with dehydratio n, lasix, losartan and diarrhea per nephrology losartan dc'd, lasix on hold until 06/11, metformin dc'd, allopurino l adjusted from 300 mg to 50 mg on mondays and f u with nephrology Dr. Monreal in 1-2 weekslabs on 06/07/22 ordered Chronic ki dney disease stage 3A 669785642 N18.31 recent hospitaliz ation for CKD see AKIsee above AKIContinu e to avoid nephrotoxi c meds as able, see aboveMonit or labs.Renal consult 1-[address] Monreal Hyperkalemia 86102103 E8 7.5 hyperkalem ia resolved and k was 6.4 in hospitalpo tassium supplement discontinu ed in hospitalme nitor bmp on 06/07, last k 4.6 on 06/04 Chronic ob structive pulmonary disease 98455460 J41.0 albuterol HFA: 2 puffs q4h prnmontelu kast 10 mg dailywill monitor Chronic pain 71035034 G8 9.29 gabapentin 800 mg [id number] 650 mg q6h prntramado l 50 mg [id number] monitor Diabetes mellitus 326064 09 E11.42 Lantus 25U at hsinsulin aspart per sliding scaledc in hospital for TISHA metformin 1000 mg bidVictoza 1.8 mg SC dailywill monitor Essential hypertension 78029150 I10 hold furosemide 40 mg daily until 06/11dc losartan 50 mg dailywill monitor bpbp low stable currently Gout 78885434 M10.09 allopurino l decreased to 50 mg daily on Tuesday and co lchicine 0.6 mg daily, hold for diarrheaur ic acid level on 06/07will monitor Mixed anxi ety and depressive disorder 068266905 F41.8 clonazepam 0.5 mg at hsescitalo pram 5 mg dailywill monitor Hyperlipidemia 20881346 E78.49 atorvastat in 20 mg dailywill monitor [id number] JAREK DONOHUE NP [address] [place] [address] 06/11/2022 13:52:33 06/15/2022 15:23:12 Acute kidney injury 07058834 N17.9 TISHA with hospitaliz ation multifacto rial with dehydratio n, lasix, losartan and diarrhea per nephrology losartan dc'd, lasix on hold until 06/11, metformin dc'd, allopurino l adjusted from 300 mg to 50 mg on mondays and f u with nephrology Dr. Monreal in 1-2 weekslabs on 06/07/22 ordered Edema of l ower extremity 509954774 R60.0 lasix 40 mg amElevate as much as able.compr ession stockingsM onitor. Chronic ki dney disease stage 3A 108778364 N18.31 recent hospitaliz ation for CKD see AKIsee above AKIContinu e to avoid nephrotoxi c meds as able, see aboveMonit or labs.Renal consult 1-[address] Monreal [id number] JAREK DONOHUE NP [facility] [address] [place] [address] 06/16/2022 12:53:11 06/18/2022 13:10:44 Normal grief reaction 918469537 F43.20 x- sunday 06/18she has prn clonazapam Chronic ki dney disease stage 3A 459840933 N18.31 recent hospitaliz ation for CKD see AKIsee above AKIContinu e to avoid nephrotoxi c meds as able, see aboveMonit or labs.Renal consult 1-[address] Monreal [id number] [facility] [address] [place] [address] 06/23/2022 13:18:38 06/30/2022 14:46:10 Chronic obstructive pulmonary disease 85449892 J41.0 albuterol HFA: 2 puffs q4h prnmontelu kast 10 mg dailywill monitor Depressive disorder 3548 9007 F32.A lexapro 5 mg daily-incr ease to 10 mgpsych prn Pain of ri ght hip joint 9179860906 79923 M25.551 No acute injury found.jg pentin 800 mg QIDtramado l 50 mg qd.Continu e PT/OT strengthen ing, balance, gait training, safety and function.M onitor sxs.ortho consult for possible injection [id number] JAREK DONOHUE NP [address] [address] 07/20/2022 15:19:14 07/28/2022 16:24:47 Acute kidney injury 82760145 N17.9 TISHA with hospitaliz ation multifacto rial with dehydratio n, lasix, losartan and diarrhea per nephrology losartan dc'd, lasix 40 mg daily, metformin dc'd, allopurino l adjusted from 300 mg to 50 mg on mondays and f u with nephrology Dr. Monreal in 1-2 weekslabs monitored Chronic ki dney disease stage 3A [id number] N18.31 recent hospitaliz ation for CKD see AKIsee above AKIContinu e to avoid nephrotoxi c meds as able, see aboveMonit or labs.Renal consult Dr. Monreal Hyperkalemia 81068013 E8 7.5 hyperkalem ia resolved and k was 6.4 in [facility] supplement discontinu ed in [facility] labs Chronic ob structive pulmonary disease 13574187 J41.0 albuterol HFA: 2 puffs q4h prnmontelu kast 10 mg dailywill monitor Chronic pain 34284880 G8 9.29 gabapentin 800 mg b5pIXND 650 mg q6h prntramado l 50 mg [id number] monitor Diabetes mellitus 506184 09 E11.42 Lantus 25U at hsinsulin aspart per sliding scaleVicto za 1.8 mg SC dailywill monitor Essential hypertension 94972344 I10 furosemide 40 mg dailywill monitor bpbp low stable currently Gout 63402678 M10.09 allopurino l decreased to 50 mg daily on Tuesday and co lchicine 0.6 mg daily, hold for diarrheaur ic acid levelwill monitor Mixed anxi ety and depressive disorder 457654761 F41.8 clonazepam 0.5 mg at hsescitalo pram 10 mg dailywill monitor Hyperlipidemia 11665627 E78.49 atorvastat in 20 mg dailywill monitor [id number] STEPHY RTAVIS [address] [place] [address]178 5 08/16/2022 12:38:40 08/19/2022 14:16:04 Anxiety 00993828 F41.1 lexparo 10 mg dailyclona zepam 0.5 mg hsMonitor mood.Psych consult prn. Chronic ob structive pulmonary disease 08290897 J41.0 albuterol HFA: 2 puffs q4h prnmontelu kast 10 mg dailywill monitor Falls 581389473 R29.6 PT OT eval and treatfall precaution sfrequent safety checks [id number] MD GENARO Panda [address] [place] [address] [phone] 5 09/20/2022 19:12:55 10/05/2022 13:35:55 Anxiety 91045638 F41.1 Mood stable.Con tinue escitalopr am 10 mg qd and clonazepam 0.5 mg qhs.Monito r mood.Psych following. Chronic ob structive pulmonary disease 42564027 J41.0 No current sxs.Contin ue singulair 10 mg qd and albuterol MDI 2 puffs q 4 hrs prn.Monito r resp. status Falls 011347593 R29.6 Brody dependent. Continue fall precaution s.Monitor for safety. Ingrowing nail 534573690 L60.0 Not improving with Keflex, will change to doxy 100 mg BID x 7 d.Monitor sxs.Wound consult Chronic jonathan dney disease stage 3A 571619438 N18.31 Was almost back to baseline at last check in 05/2022.Con tinue to avoid nephrotoxi c meds as able.Monit or labs, will check this wk.Renal f/u as planned. Chronic pain 92423056 G8 9.29 Continue gabapentin 800 mg QID, tramadol 50 mg q 6 hrs prn and APAP 650 mg q 6 hrs prnMonitor sxs. Diabetes mellitus 927103 09 E11.42 Good control on victoza 1.8 mg qd, lantus 24U qd, and SSI. Monitor accuchecks TID. Essential hypertension 02908826 I10 Good control on furosemide 40 mg qdMonitor BP and labs. Chronic constipation 236 580258 K59.09 Will add miralax 17 gms qd and continue metamucil 1 tsp qd and miralax BID prn.Monito r bowel function [id number] STEPHY TRAVIS [address] [place] [address] L[place] MOISE [phone] 5 11/12/2022 10:43:31 11/16/2022 19:30:19 Anxiety 56367655 F41.1 Mood stable.esc italopram 10 mg qdclonazep am 0.5 mg qhs.Monito r mood.Psych following. Chronic ob structive pulmonary disease 11178504 J41.0 No current sxs.singul air 10 mg qdalbutero l MDI 2 puffs q 4 hrs prn.Monito r resp. status Falls 294507597 R29.6 Brody dependent. Continue fall precaution s.Monitor for safety. Chronic ki dney disease stage 3A 678549711 N18.31 Was almost back to baseline at last check in 05/2022.Con tinue to avoid nephrotoxi c meds as able.Monit or labs, will check this wk.Renal f/u as planned. Chronic pain 05025520 G8 9.29 gabapentin 800 mg QID,tramad ol 50 mg at 1400 decreased from bidAPAP 650 mg q 6 hrs prnMonitor sxs. Diabetes mellitus 980130 09 E11.42 Good control on victoza 1.8 mg qd,lantus 25 Units qd, and SSI.Monito r accuchecks TID. Essential hypertension 08618226 I10 Good control on furosemide 40 mg qdMonitor BP and labs. Chronic constipation 236 479495 K59.09 Will add miralax 17 gms qd and continue metamucil 1 tsp qd and miralax BID prn.Monito r bowel function [id number] STEPHY TRAVIS TANGELA [address] [place] [address] rd [place] LIO [address] 5 12/31/2022 15:41:28 01/03/2023 15:15:47 Anxiety 80928531 F41.1 Mood stable.esc italopram 10 mg qdclonazep am 0.5 mg qhs.Monito r mood.Psych following. Chronic ob structive pulmonary disease 52046049 J41.0 No current sxs.singul air 10 mg qdalbutero l MDI 2 puffs q 4 hrs prn.Monito r resp. status Falls 462080803 R29.6 Brody dependent. Continue fall precaution s.Monitor for safety. Chronic ki dney disease stage 3A 850944001 N18.31 Was almost back to baseline at last check in 05/2022.Con tinue to avoid nephrotoxi c meds as able.Monit or labs, will check this wk.Renal f/u as planned. Chronic pain 95550511 G8 9.29 gabapentin 800 mg QID,tramad ol 50 mg at 1400 decreased from bidAPAP 650 mg q 6 hrs prnMonitor sxs. Diabetes mellitus 029241 09 E11.42 Good control on victoza 1.8 mg qd,lantus 25 Units qd, and SSI.Monito r accuchecks TID. Essential hypertension 46953486 I10 Good control on furosemide 40 mg qdMonitor BP and labs. Chronic constipation 236 424145 K59.09 miralax 17 gms qdmetamuci l 1 tsp qdmiralax BID prn.Monito r bowel function [id number] MD GENARO Panda TANGELA [address] [place] [address] L[place] MOISE [address]636 5 01/20/2023 18:42:19 02/01/2023 09:01:35 Anxiety 60484488 F41.1 Mood stable.Con tinue escitalopr am 10 mg qd and clonazepam 0.5 mg qhs.Monito r mood.Psych following. Chronic ob structive pulmonary disease 38468757 J41.0 No current sxs.Contin ue singulair 10 mg qd and albuterol MDI 2 puffs q 4 hrs prn.Monito r resp. status Falls 783755517 R29.6 Brody dependent. Continue fall precaution s.Monitor for safety. Chronic ki dney disease stage 3A 856509302 N18.31 At baseline at last check in 11/2022.Co ntinue to avoid nephrotoxi c meds as able.Renal f/u as planned.Connelly s labs ordered monthly, but not done since 12/08/22, will change to every 3 months as she has been stable. Chronic pain 32927668 G8 9.29 With continued neuropathy pain, already on max dose of gabapentin .Continue gabapentin 800 mg QID, tramadol 50 mg TID and APAP 650 mg q 6 hrs prnMonitor sxs. Diabetes mellitus 966054 09 E11.42 FIngerstic ks variable. No HgA1C in the past yr.Continu e victoza 1.8 mg qd, lantus 25U qd, and SSI.Monito r accuchecks TID, will order HgA1C for next tuesday. Essential hypertension 54356989 I10 Remains in good control on furosemide 40 mg qdMonitor BP and labs. Chronic constipation 236 864818 K59.09 Continue metamucil 1 tsp qd and miralax 17 gms BID prn.Monito r bowel function Asthenia 90118624 R53.81 Encouraged pt to get up to activities again. Reminded her that getting up helps her feel better.Mon itor [id number] SARAHI MCFARLAND TANGELA [address] [place] [address] L[place] MOISE 46[address]548 5 03/10/2023 08:15:48 03/14/2023 15:52:57 Abdominal pain 27962012 R10.9 diffuse abdominal pain , reports hx of hernia( not appreciate d on exam)5/10 when lying 7/10 when sitting upwaxes and wane -non radiatinga ggravated when having a bowel moving or sitting up.will obtain abd U/S-cbc- bmp-amylas e and lipaseAfte r exam patient is noted sitting up in bed eating breakfast. Hemorrhoids 86973418 K64 .9 patient reports hx internal and externalre ports flare up, she tells me that suppositor ies does not stay in.Nursing reports that she complains but will refuse treatment. plan of care discussed with nursing. [id number] SARAHI MCFARLAND [address] [place] [address] rd [place] 88[address]-874 5 04/06/2023 08:03:00 04/07/2023 19:40:55 Abdominal pain 03693330 R10.9 03/31: Updated by SW that pt reports abdominal pain during care conference . diffuse abdominal pain , reports hx of hernia( not appreciate d on exam): recent ultrasound see above- previous US ordered on 03/11 not completed ? unsure if ordered by nursing.re ferral to GI at [facility] awaiting appointmen t confirmati on.waxes and wane -non radiatinga ggravated when having a bowel moving or sitting up.will get updated labs for 04/11/23 Chronic pain 46456988 G8 9.29 With continued neuropathy pain, already on max dose of gabapentin .Continue gabapentin 800 mg QID, tramadol 50 mg TID and APAP 650 mg q 6 hrs prnMonitor sxs. Asthma 630483448 J45.30 singulair 10 mg qdalbutero l MDI 2 puffs q 4 hrs prn.Monito r resp. status Depressive disorder 3548 9007 F32.A lexapro 5 mg daily-incr ease to 10 mgpsych prn Diabetes mellitus 644441 09 E11.42 Fingerstic ks variable. No HgA1C in the past yr.lantus 25U qd, and SSI.Monito r accuchecks TID, will order HgA1C for next tuesday.Monty toza changed to trulicity per insurance will not cover victoza. Essential hypertension 42488074 I10 Remains in good control on furosemide 40 mg qdMonitor BP and labs. Hyperlipidemia 03346305 E78.49 atorvastat in 20 mg dailywill monitor [id number] SARAHI MCFARLAND [address] [address] 5 07/01/2023 12:39:23 07/05/2023 11:14:24 Abdominal pain 10312445 R10.9 03/31: Updated by SW that pt reports abdominal pain during care conference . diffuse abdominal pain , reports hx of hernia( not appreciate d on exam): recent ultrasound see above- previous US ordered on 03/11 not completed ? unsure if ordered by nursing.re ferral to GI at [facility] awaiting appointmen t confirmati on.waxes and wane -non radiatinga ggravated when having a bowel moving or sitting up.will get updated labs for 04/11/23 History of hernia repair 7023290630 9109 Z98.890 07/01/23:s/ p repair of incarcerat ed umbilical hernia w/o obstructio n and unilateral inguinal with mesh.post op follow up on 07/11/[address] [place] [address] outside [facility] umbilical and inguinal starting 07/04/23. Do not remove or get wet dressing wet.VS qshiftNurs ing to update providers with any acute changes.[place] BS ORD FOR 07/04/23 PLACED IN [facility] [id number] SARAHI MCFARLAND [address] [address] 5 07/04/2023 15:25:43 07/06/2023 09:53:33 History of hernia repair 5057764110 9109 Z98.890 07/01/23:s/ p repair of incarcerat ed umbilical hernia w/o obstructio n and unilateral inguinal with mesh.post op follow up on 07/11/[address] [place] [address] outside [facility] umbilical and inguinal starting 07/04/23. Do not remove or get wet dressing wet.VS qshift - have been stable.Lamar sing to update providers with any acute changes.LA BS ORD FOR 07/04/23 PLACED IN [facility]- not completed reordered for 07/04 [id number] SARAHI MCFARLAND [address] [address] 5 07/11/2023 08:53:35 07/14/2023 13:06:16 History of hernia repair 0430885840 9109 Z98.890 07/01/23:s/ p repair of incarcerat ed umbilical hernia w/o obstructio n and unilateral inguinal with mesh.post op follow up on 07/11/[address] [place] [address] outside [facility] umbilical and inguinal starting 07/04/23. Do not remove or get wet dressing wet.VS qshift - have been stable.Lamar sing to update providers with any acute changesPat ient has follow up appt today with surgery. Pain of right calf 69067 22149 837777 M79.661 reports pain with palpation and flexionuna ble to palpate pedal pulse but right foot is warm, no swelling +CMSwill get an ultrasound to rule out DVT. [id number] SARAHI MCFARLAND [address] [address]575 5 07/13/2023 11:25:16 07/15/2023 08:46:50 History of hernia repair 4419877686 9109 Z98.890 07/01/23:s/ p repair of incarcerat ed umbilical hernia w/o obstructio n and unilateral inguinal with mesh.post op follow up on 07/11/[address] [place] [address] outside [facility] umbilical and inguinal starting 07/04/23. Do not remove or get wet dressing wet.VS qshift - have been stable.Lamar sing to update providers with any acute changes. Pain of right calf 31673 89972 566355 M79.661 reports pain with palpation and flexionuna ble to palpate pedal pulse but right foot is warm, no swelling +CMSultras ound to rule out DVT pending. Diabetes mellitus 197146 09 E11.42 BGLs 300-400swi ll adjust SSC and increase lantus from 25 units to 30 units at [facility] trulicity 0.75 mg weekly-con tinue FS TID and HS [id number] SARAHI MCFARLAND [address] [address] 5 07/21/2023 09:47:32 07/26/2023 11:58:03 History of hernia repair 8119311200 9109 Z98.890 07/01/23:s/ p repair of incarcerat ed umbilical hernia w/o obstructio n and unilateral inguinal with mesh. et.continu e to be stable post op.Nursing to update providers with any acute changes. Pain of right calf 45038 97774 606066 M79.661 ultrasound negativept encouraged OOB for postional changes and increase circulatio ncontinue tylenol 975 mg TID and prn tramadol Diabetes mellitus 652625 E11.42 BGLs have improved from 400 but continues to be high 200- 300swill adjust SSC and [facility] 30 [facility]ulicity 0.75 mg weekly-con tinue FS TID and HS [id number] SARAHI MCFARLAND [address] [address] 5 07/25/2023 12:18:50 08/01/2023 14:06:31 History of hernia repair 4901031923 9109 Z98.890 07/24: continue to have some discomfort at incisional site, we discussed this is normal and can last for a few weeks or even months. There is no redness, swelling or warmth.s/p repair of incarcerat ed umbilical hernia w/o obstructio n and unilateral inguinal with mesh. et.continu e to be stable post op.Nursing to update providers with any acute changes. Diabetes mellitus 539846 E11.42 BGLS appeared to have improved for a few days. Morning BGL better but afternoon and evening continues to be high, nursing reports that she eats a lot of candy bought in by visitor. will educated on next visit.will adjust lispro SSC and revisit BGL later this week.connie nue trulicity 0.75 mg weekly-con tinue FS TID and HS [id number] SARAHI MCFARLAND [address] [address] 5 08/02/2023 10:29:45 08/05/2023 08:38:11 History of hernia repair 3077441864 9109 Z98.890 s/p repair of incarcerat ed umbilical hernia w/o obstructio n and unilateral inguinal with mesh. et.continu e to be stable post op.surgica l incisions now healedNurs ing to update providers with any acute changes. Diabetes mellitus 992760 09 E11.42 blood sugars have improved but continue to have bgl in the 300s.-lant us increased to 40 units hscontinue Lispro SSCcontinu e trulicity 0.75 mg weekly-con tinue FS TID and HS Asthma 713955565 J45.30 breathing has been easy and unlabored. singulair 10 mg qdalbutero l MDI 2 puffs q 4 hrs prn.Monito r resp. status Chronic ki dney disease stage 3A 485700329 N18.31 07/05 last Bun 38-Cr 1.6continu e to avoid nephrotoxi ns Chronic ob structive pulmonary disease 34652024 J41.0 Continue singulair 10 mg qd and albuterol MDI 2 puffs q 4 hrs prn. Depressive disorder 3548 9007 F32.A lexapro 5 mg daily-incr ease to 10 mgpsych prn [id number] Tami Koroma MD [address] [place] [address] 10/07/2023 17:24:57 11/28/2023 13:46:23 Diabetes mellitus 18209424 E11.42 HgA1C 7.8 in 06/2023.Sug ars remain too high most of the jose, often>300C ontinue victoza 1.8 mg qd, lantus 25U qd, and SSI.Monito r accuchecks TID.Consid er increase of lantus. Asthenia 74828907 R53.81 Staff continues to encourage pt to get up to activities .Tonight I reminded her that getting up helps her feel better.Mon itor Anxiety 26848793 F41.1 Mood down tonightCon tinue escitalopr am 10 mg qd and clonazepam 0.5 mg qhs.Monito r mood.Psych following. Chronic ob structive pulmonary disease 23179602 J41.0 No current sxs.Contin ue singulair 10 mg qd and albuterol MDI 2 puffs q 4 hrs prn.Monito r resp. status Falls 575958379 R29.6 Continues to be brody dependent. Continue fall precaution s.Monitor for safety. Chronic ki dney disease stage 3A 650807399 N18.31 Last labs in 06/2023, stable.Con tinue to avoid nephrotoxi c meds as able.Renal f/u as planned.Co ntinue to monitor q 3 months. Chronic pain 74765026 G8 9.29 With continued neuropathy pain, already on max dose of gabapentin .Trouble sleeping due to pain.Will schedule tramadol 50 mg qhs and make prn dose 50 mg BID prn.Contin ue gabapentin 800 mg QID and APAP 650 mg q 6 hrs prnMonitor sxs. Essential hypertension 95230704 I10 Remains in good control on furosemide 40 mg qdMonitor BP and labs. Chronic constipation 236 018376 K59.09 Continue bowel meds as ordered.Mo nitor bowel function. [id number] SARAHI MCFARLAND [address] [place] [address] [phone] 5 10/12/2023 10:09:52 10/14/2023 10:23:32 Depressive disorder 74416950 F32.A reports fatigue and low energy.see n by outpatient psychiatrist 10/09per psych recommenda tion will decrease clonazepam from 0.5 to 0.25 mg at bedtimecon tinue lexapro 10 mg daily [id number] SARAHI MCFARLAND [address] [place] [address]24[address]-343 5 11/28/2023 08:41:33 11/29/2023 11:39:06 Diabetes mellitus 86068490 E11.42 FS wax and wane to low 300scontin ue Lispro SSCcontinu e trulicity 1.5 mg weekly-cailin tus 40 units hscontinue FS TID and HS Asthma 432181965 J45.30 breathing has been easy and unlabored. singulair 10 mg qdalbutero l MDI 2 puffs q 4 hrs prn.Monito r resp. status Chronic ki dney disease stage 3A 930906889 N18.31 continue to avoid nephrotoxi ns Chronic ob structive pulmonary disease 60060222 J41.0 Continue singulair 10 mg qd and albuterol MDI 2 puffs q 4 hrs prn. Depressive disorder 3548 9007 F32.A continue clonazepam from 0.25 mg at bedtimecon tinue lexapro 10 mg dailyMonit or mood for changes with behaviors. psych prn [id number] SARAHI MCFARLAND [facility] TANGELA [address] [place] [address] [place] [address] 5 01/12/2024 10:51:05 01/18/2024 12:03:17 Diabetes mellitus 58635672 E11.42 FS wax and wane mainly under 200s.connie nue Lispro SSCcontinu e trulicity 1.5 mg weekly-cailin tus 40 units hs - consider titratingc ontinue FS TID and HS Asthma 662094294 J45.30 breathing has been easy and unlabored. singulair 10 mg qdalbutero l MDI 2 puffs q 4 hrs prn.Monito r resp. status Chronic ki dney disease stage 3A 020835326 N18.31 continue to avoid nephrotoxi ns Chronic ob structive pulmonary disease 00014400 J41.0 Continue singulair 10 mg qd and albuterol MDI 2 puffs q 4 hrs prn. Depressive disorder 3548 9007 F32.A continue clonazepam from 0.25 mg at bedtimecon tinue lexapro 10 mg dailyMonit or mood for changes with behaviors. psych prn Anxiety 28476529 F41.1 Continue escitalopr am 10 mg qd and clonazepam 0.5 mg qhs. Chronic pain 82677124 G8 9.29 Continue gabapentin 800 mg QID, tramadol 50 mg TID and APAP 650 mg q 6 hrs prnMonitor sxs. Essential hypertension 05012678 I10 Remains in good control on furosemide 40 mg qdMonitor BP and labs. [id number] SARAHI MCFARLAND GENARO TANGELA [address] [place] [address] [place] [address] 02/20/2024 15:10:23 02/21/2024 13:53:21 Bilateral lower leg edema 452366272 R60.0 trace amount;mos t likely dependent. patient rarely gets OOB.encour aged to elevated legs on pillowsden ies any discomfort , VSSdiscuss ed with nursing ,no need for diureticnu rsing to update provider with worsening sx. [id number] ERIKA OLSON, PROPERTY ASSESSMENT MONITOR [address] [place] [address] 04/12/2024 13:49:48 04/13/2024 15:17:56 Abdominal pain 66197661 R10.9 discomfort associated with diarrheare ports burning with voidwill get UA with c/s.send stool r/o cdiffcheck labs CBC, BMP Itching of skin 13519683 0 L29.9 reports all over itchinessp er nursing no rash notedwill add hydroxyzin e 25 mg q6 prntriamci nolone 0.1 % cream BID to extremitie sstart claritin 10 mg dailycheck uric acid level for elevation due to hx of ckd to r/o cause of itching. [id number] SARAHI MCFARLAND [address] [place] [address] 04/15/2024 09:05:37 04/26/2024 13:43:37 Urinary tract infectious disease 43371684 N39.0 UA + for nitrates, WBC and bloodstart ed on bactrim DS with probioticm onitor for retention or worsening sx. Chronic ki dney disease stage 3A 454697189 N18.31 Cr 1.7on gabapentin 800 mg QID decreased to 600 mg TIDlasix decreased from 40 mg daily to 20 mg QODcontinu e to avoid nephrotoxi nsextra fluids encouraged /elevate legs Gout 56800103 M10.09 uric acid level 7.4colchic ine 0.6 mg daily d/c'd changed to PRN for flare upsallopur inol 50 mg daily changed to 100mg QODrecheck uric acid level in 1 week [id number] CUONG JONES, LAURIE [address] [place] [address] 05/23/2024 13:10:15 05/25/2024 08:27:44 Nausea 556344241 R11.0 Pt has hx of hernia, repaired per patient.Po ssible recurrent hiatal hernia.Ginger st xray ordered with CBC, BMP.PRN zofran, and continue monitor. Malaise 976008263 R53.81 VSS, afebrile at this time.Upper abdominal discomfort with nausea but no vomiting.W ill check labs and Xray to r/o acute respirator y problem or recurrent hernia. Diabetes mellitus 029966 E11.42 FS stable, mainly under 200s.connie nue Lispro SSCcontinu e trulicity 1.5 mg weekly-cailin tus 40 units hs - consider titratingc ontinue FS TID and HS Asthma 149495435 J45.30 Stable.unl abored.Con tinuesingu lair 10 mg qdalbutero l MDI 2 puffs q 4 hrs prn.Monito r resp. status Chronic ob structive pulmonary disease 38953514 J41.0 Stable.Con tinue singulair 10 mg qd and albuterol MDI 2 puffs q 4 hrs prn. Essential hypertension 98589477 I10 Remains in good control on furosemide 40 mg qdContinue monitor BP and labs. [id number] CUONG JONES, [employer] [address] [place] [address] 06/06/2024 10:33:51 06/12/2024 16:12:17 Nausea 223011200 R11.0 resolved. Diabetes mellitus 196279 E11.42 FS stable, mainly under 200s.A1c on 06/04 was 6.6continu e Lispro SSCcontinu e trulicity 1.5 mg weekly-cailin tus 40 units hs - consider titratingc ontinue FS TID and HS Asthma 690817879 J45.30 Stable.unl abored.Con tinuesingu lair 10 mg qdalbutero l MDI 2 puffs q 4 hrs prn.Monito r resp. status Chronic ob structive pulmonary disease 66423060 J41.0 Stable.Con tinue singulair 10 mg qd and albuterol MDI 2 puffs q 4 hrs prn. Essential hypertension 74175134 I10 Remains in good control on furosemide 40 mg qdContinue monitor BP and labs. Chronic ki dney disease stage 3A 986151412 N18.31 continue to avoid nephrotoxi ns Depressive disorder 8382 0661 F32.A continue clonazepam from 0.25 mg at bedtimecon tinue lexapro 10 mg dailyMonit or mood for changes with behaviors. psych prn Anxiety 41089470 F41.1 Continue escitalopr am 10 mg qd and clonazepam 0.5 mg qhs. Chronic pain 35327098 G8 9.29 Continue gabapentin 800 mg QID, tramadol 50 mg TID and APAP 650 mg q 6 hrs prnMonitor sxs. Health Concerns Section Related Observation LastModified by Organization Detai ls LastModified Time None Recorded Concern Status LastModified by Organization Details LastModified Time None Recorded Advance Directives Directive Y: Payers Insurance Date Sequence Insurance Name Policy Number Policy Manuel Covered Member ID Manuel Member ID Guarantor Name 04/12/2024 1 [facility] - DOS PRIOR TO 2022 - DUAL ELIGIBLE (MEDICARE REPLACEMENT/ADV ANTAGE - HMO) Melissa Colon [id number] Melissa Colon 05/23/2024 2 [place] [facility] Melissa E Colon [id number] Melissa Colon 04/12/2024 1 [facility] - DOS ON OR AFTER 2022 - ONE CARE (MEDICARE REPLACEMENT/ADV ANTAGE - HMO) Melissa E Colon [id number] Melissa Colon 05/23/2024 1 [place] B[place] [employer] Melissa E Colon [id number] Melissa Colon Notes Date Note Type Note [...] other acute nursing concerns. SARAHI MCFARLAND [address] [facility], [address], [place], [address], [facility] Nintu Oy 02/20/2024 15:33:09 04/12/2024 text/html Melissa is a [...] today but refused lunch. 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 Patient recent labs and UA results reviewed with plans or care discussed. UA noted +, stool negative for infection. ERIKA OLSON, PROPERTY ASSESSMENT MONITOR [address] [facility], [address], [place], [place], [id number], [facility] Nintu Oy 04/25/2024 23:11:49 05/23/2024 text/html Melissa is a [...] Jayson abdominal pain with palpation. CUONG JONES, PAINTER BOTTOM [address] [facility], [address], [place], [address], [facility] Nintu Oy 05/23/2024 13:56:14 06/06/2024 text/html Melissa is a 79 yr old patient seen for routine rounding visit per nursing request. This is 79 y/o LCT resident seen for routine rounding visit.She is stable at her baseline, continues refusing getting out of bed frequently, not participating in activities. She had a chest xray done for nausea, coughing and possible recurrent hernia. X ray result was No active disease is seen in the chest.Discussed the case with nursing, patient's nausea and coughing has resolved. Her appetite is stable, no concerns eliminating.On exam today, patient was lying in her bed, resting, VSS, NAD. Pt states she feels ok, no acute concerns today. Denies n/v/d. Jayson abdominal pain or discomfort. CUONG JONES, PAINTER BOTTOM [address] [facility], [address], [place], [address], [facility] Nintu Oy 06/12/2024 14:05:08 OBGyn Episode No OBEpisode recorded.
== END 2024-08-10 08:20 | disposition home or self-care (01) ==
LOC: HO.US 08:19
PROVIDERS: PCP Family Medicine; Visit Provider Internal Medicine Nephrology
DX: R80.1 Persistent proteinuria, unspecified (principal); I12.9 Hypertensive chronic kidney disease with stage 1 through stage 4 chronic kidney disease, or unspecified chronic kidney disease; N18.32 Chronic kidney disease, stage 3b
CPT/HCPCS: 76700

== ENCOUNTER → 2024-08-10 08:23 | Outpatient (BNV) | payer MEDICARE, MEDICAID, SELFPAY | PROVIDERS: PCP Family Medicine; Visit Provider Radiology Diagnostic Radiology | DX: K76.9 Liver disease, unspecified (principal) | CPT/HCPCS: 76700 ==

== ENCOUNTER 2024-08-17 05:21 | Outpatient (REF) | payer MEDICARE, MEDICAID, SELFPAY ==
[2024-08-17 06:06] LABS: Alanine Aminotransferase 18 U/L (0-31); Albumin Level 2.4 g/dL (3.5-5.0); Alkaline Phosphatase 74 U/L (39-117); Anion Gap 10 (12-20); Aspartate Amino Transferase 29 U/L (5-31); Bilirubin Direct 0.1 mg/dL (0.0-0.5); Bilirubin Total 0.3 mg/dL (0.0-1.0); Blood Urea Nitrogen 36 mg/dL (9-16); Calcium 8.1 mg/dL (8.4-10.2); Carbon Dioxide 27 mmol/L (22-29); Chloride 109 mmol/L (96-108); Estimated Glomerular Filt Rate 25; Glucose Random 178 mg/dL (60-115); Sodium 141 mmol/L (135-145); Total Protein 5.5 g/dL (6.5-8.0)
== END 2024-08-17 05:22 | disposition home or self-care (01) ==
LOC: HO.MMNH3L 05:21
PROVIDERS: Visit Provider Family Medicine
DX: G89.29 Other chronic pain (principal)
CPT/HCPCS: 36415; 80053; 82248

== ENCOUNTER 2024-08-31 22:51 | Emergency (ER) | payer MEDICARE, MEDICAID, SELFPAY ==
--- NOTE | 2024-08-31 | ECG_ITS ---
Test Reason : chest pain Blood Pressure : */* mmHG Vent. Rate : 69 BPM Atrial Rate : 69 BPM P-R Int : 152 ms QRS Dur : 90 ms QT Int : 412 ms P-R-T Axes : -4 32 80 degrees QTcB Int : 441 ms Normal sinus rhythm Anterior infarct , age undetermined Abnormal ECG When compared with ECG of 01-Jul-2023 07:59, Anterior infarct is now Present Referred By: Bethany Waddell Electronically Signed By: Freyd Arndt
--- NOTE | ~2024-08-31 | XR_ITS ---
CLINICAL HISTORY: cough, cp 1 view chest x-ray. Comparison: None Findings: This examination is mildly limited by suboptimal patient positioning. The patient's face obscures the bilateral lung apices. There is cxui-px-xopoiksu elevation of the right hemidiaphragm. No consolidation, pneumothorax, or significant pleural effusion. Small linear opacity identified over the right perihilar region. Heart size normal. Impression: 1. Mildly limited examination related to suboptimal patient positioning. There is wwpn-qs-rutthhoz elevation of the right hemidiaphragm with a small linear focus of subsegmental atelectasis versus scarring over the lower right perihilar region.. Otherwise, no acute cardiopulmonary process identified. No focal pulmonary consolidation. This document has been electronically signed by: Alex Bell MD on 09/01/2024 00:13:36
[2024-08-31 23:03] VITALS: BP 185/83; PULSE 75; O2SAT 95
[2024-08-31 23:08] VITALS: BP 164/69; PULSE 71; RESP 16; TEMP 37.2; O2SAT 96; BMI 34.7
[2024-08-31 23:11] VITALS: BP 164/69; PULSE 71; RESP 16; TEMP 37.2; O2SAT 96
--- NOTE | 2024-08-31 23:20 | ED.CHESTPAIN ---
HPI - Chest Pain General Chief Complaint: Chest Pain Stated Complaint: chest pressure, sob x30 mins Time Seen by Provider: 08/31/24 23:07 Source: patient and EMS Mode of arrival: EMS Limitations: no limitations History of Present Illness ED Provider: Dr. Bethany Waddell HPI narrative: patient comes to the emergency room via ambulance complaining of chest pain that started 2 hours prior to arrival. According to the patient, she was watching TV. Patient is nonambulatory at baseline. Patient also reports shortness of breath. Patient states that she still has some discomfort. EMS gave the patient 1 dose of 324 mg p.o. aspirin and sublingual nitroglycerin 0.4 mg. Patient reports that she has been having some cough for a few days, no fever to her knowledge. No abdominal pain, no hematuria or dysuria or flank pain. according to EMS, they initial blood pressure prior to getting aspirin and nitroglycerin, was 200 systolic Related Data Home Medications ?Medication ?Instructions ?Recorded ?Confirmed albuterol sulfate 90 mcg/actuation 2 puff inhalation Q4H PRN Wheezing 01/31/20 07/11/23 aerosol inhaler docusate sodium 100 mg capsule 100 mg PO BID PRN Constipation 01/31/20 07/11/23 insulin aspart U-100 100 unit/mL See Protocol subcut TID 01/31/20 07/11/23 (3 mL) subcutaneous pen lancets 33 gauge #100 ea 01/31/20 07/11/23 insulin glargine 100 unit/mL (3 25 unit subcut BEDTIME 09/15/20 07/11/23 mL) subcutaneous pen (Lantus Solostar U-100 Insulin) acetaminophen 325 mg tablet 650 mg PO Q6H PRN Fever Or Pain 06/01/22 07/11/23 atorvastatin 20 mg tablet 20 mg PO BEDTIME 06/01/22 07/11/23 calcium 600 mg (as 1 tab PO BID 06/01/22 07/11/23 carbonate)-vitamin D3 10 mcg (400 unit) tablet (Calcium 600 + D(3)) clonazepam 0.5 mg tablet 0.5 mg PO BEDTIME 06/01/22 07/11/23 escitalopram oxalate 5 mg tablet 5 mg PO DAILY 06/01/22 07/11/23 (Lexapro) furosemide 40 mg tablet 40 mg PO DAILY 06/01/22 07/11/23 Held on 06/04/22. Instructions: Resume on 06/11/22. gabapentin 800 mg tablet 800 mg PO Q6H 06/01/22 07/11/23 hydrocortisone-pramoxine 2.5 %-1 % 1 appl CO BID 06/01/22 07/11/23 rectal cream (Analpram-HC) metoclopramide HCl 5 mg tablet 5 mg PO TID 06/01/22 07/11/23 polyethylene glycol 3350 17 gram 17 g PO BID PRN Constipation 06/01/22 07/11/23 oral powder packet psyllium husk 3.4 gram/5.4 gram 1 tsp PO DAILY 06/01/22 07/11/23 oral powder (Tiffanie-Mucil) tramadol 50 mg tablet 50 mg PO Q8H PRN MODERATE TO 06/01/22 07/11/23 SEVERE PAIN dulaglutide 0.75 mg/0.5 mL mg subcut 07/01/23 07/11/23 subcutaneous pen injector (Trulicity) Previous Rx's ?Medication ?Instructions ?Recorded lancets 28 gauge (FreeStyle #100 ea 01/22/20 Lancets) ferrous sulfate 325 mg (65 mg 325 mg PO DAILY 90 days #90 tabs 09/03/20 iron) tablet,delayed release pen needle, diabetic 32 gauge x #50 ea 09/25/20 montelukast 10 mg tablet 10 mg PO BEDTIME 90 days #90 tabs 10/18/20 grab bars #3 ea 10/28/20 blood-glucose meter (FreeStyle #1 ea 12/15/20 Dutton Lite kit) allopurinol 100 mg tablet 50 mg (1/2 x 100 mg) PO MoTh@0900 06/04/22 #10 tabs colchicine 0.6 mg tablet 0.6 mg PO Q2D #10 tabs 06/04/22 hydrocodone 5 mg-acetaminophen 325 1 tab PO Q4-6H PRN pain #30 tabs 07/01/23 mg tablet chlorthalidone 25 mg tablet 25 mg PO DAILY #30 tabs 09/01/24 Allergies Allergy/AdvReac Type Severity Reaction Status Date / Time No Known Allergies Allergy Verified 08/31/24 23:09 Review of Systems Review of Systems: Constitutional : No Weight loss, No Fever, No Chills, No Night Sweats, No Fatigue, No Malaise ENT/Mouth : No Hearing loss, No Ear Pain, No Nasal Congestion, No Sinus Pain, No Hoarseness, No sore throat, No Rhinorrhea, No Swallowing Difficulty Eyes: No Eye Pain, No Swelling, No Redness, No Foreign Body, No Discharge, No Vision Changes Cardiovascular : Complaining of chest pain, shortness of breath, denies orthopnea, complaining of worsening lower extremity edema Respiratory : No Cough, No Sputum, No Wheezing, No Smoke Exposure, No Dyspnea Gastrointestinal : No Nausea, No Vomiting, No Diarrhea, No Constipation, No abdominal Pain, No Hematochezia, No Melena Genitourinary : no irregular bleeding, No Dysuria, No Urinary Frequency, No Hematuria, No Urinary Incontinence, No Urgency, No Flank Pain, No Urinary Flow Changes, No Hesitancy Musculoskeletal : No joint pain, No Myalgias, No Joint Swelling Skin : No Skin Lesions, No rash Neuro : No Weakness, No Numbness, No Paresthesias, No Loss of Consciousness, No Dizziness, No Headache Psych : No Anxiety/Panic, No Depression, No SI/HI/AH/VH, No Social Issues, Heme/Lymph: No Bruising, No Bleeding,No Lymphadenopathy Endocrine : No Polyuria, No Polydipsia, No Temperature Intolerance [facility] Past Medical History Medical History Hx of flexible sigmoidoscopy CKD (chronic kidney disease), stage IV Chronic alcoholic liver disease Numbness HTN (hypertension) HLD (hyperlipidemia) T2DM (type 2 diabetes mellitus) Lumbar radiculopathy Hair loss Hearing loss Umbilical hernia Hypovitaminosis D Constipation by delayed colonic transit Pure hypercholesterolemia Depression with anxiety Gout Moderate asthma Essential hypertension Diabetes mellitus Lumbar degenerative disc disease Neuropathy Surgical History Umbilical hernia, incarcerated (07/01/23) Left inguinal hernia (07/01/23) History of esophagogastroduodenoscopy (EGD) History of colonoscopy History of total abdominal hysterectomy and bilateral salpingo-oophorectomy H/O cervical biopsy History of appendectomy Family History Family History Father Renal failure Mother Fatty liver Ovarian cancer Maternal Aunt Ovarian cancer Breast cancer Brother Colon cancer Social History Social History Household Members: None Housing: Alf Do you presently have visiting nurse or other home services: No Alcohol intake: unknown Patient Tobacco Use Status: Former Tobacco user Tobacco use type: Cigarette Smoked in Last 30 Days: No e-Cigarette/Vaping Use: Never Used Second Hand Smoke Exposure: No Use of substances other than those prescribed or required for medical reasons: No Advance Directives: Yes Advance Directives on File: Yes Advance Directives Date on File: 12/22/20 service: No Current occupational status: retired Cognitive needs: No Hearing needs: No Vision needs: No Physical Exam Vital Signs: Vital Signs: Last Vital Signs Temp 97.9 F 09/01/24 00:23 Pulse 66 09/01/24 02:00 Resp 12 09/01/24 02:00 BP 124/39 L 09/01/24 02:00 Pulse Ox 95 09/01/24 02:00 O2 Del Method Room Air 09/01/24 02:00 BMI result Body Mass Index 34.7 Const: Other: Appearance: Alert. Oriented X3. No acute distress. Eyes: Pupils equal, round and reactive to light. ENT: Pharynx normal. Neck: Normal inspection. Neck supple. No lymph nodes noted. No crepitus CVS: Normal heart rate and rhythm. Pulses normal. Normal S1 and S2 Respiratory: No respiratory distress. Breath sounds normal. No Wheezing. No rales Abdomen: Soft and nontender. No rigidity. No distention. Skin: Skin warm and dry. Normal skin color. Normal skin turgor. Extremities: +3 pitting edema bilaterally Neuro: Oriented X 3. No motor deficit. No sensory deficit. Moving all extremities. No slurred speech. CN 2 through 12 grossly intact Psych: calm, cooperative, normal affect Course Course Course Narrative: patient complaining of chest pain and shortness of breath that started while watching TV. According to EMS, patient's initial blood pressure was in the 200s, patient was given a dose of full aspirin and sublingual nitroglycerin, on arrival patient's blood pressure 164/69, patient states that she is feeling a bit better all of patient's labs and imaging pending. Medical Decision Making Medical Decision Making [facility] Narrative: my interpretation of EKG: Normal sinus rhythm, heart rate 69, no ST segment depression or elevation, no T-wave inversions, QTC 441 my interpretation of labs: No significant abnormality in patient's hematology. Chemistry does not show any significant acute abnormalities, she just creatinine 2.15 above baseline of 1.8. Patient's troponin was slightly elevated, 18.3, no significant increased, now 19.6. Patient feels better, no chest pain or shortness of breath. It was noted by EMS that the patient's initial blood pressure was in the 200s. Patient received as mentioned above aspirin and sublingual nitroglycerin. Current blood pressure 124/39. I discussed with the patient that we will switch her medications from Lasix to Bumex since her creatinine has been increasing gradually. Patient is still on Lasix. Patient instructed to discontinue taking Lasix. Differential Diagnosis Differential Diagnoses: The differential diagnosis associated with the presentation includes ( Hypertensive urgency, hypertensive emergency, anxiety, musculoskeletal chest pain, viral URI) Admission/Observation Consideration of admission/observation: Escalation of care including admission/observation considered ( given patient's symptoms, elevated blood pressure, observation/ admission was considered) Lab Data MDM Lab Attestation statement: I reviewed the patient's lab results. 08/31/24 23:21 08/31/24 23:21 Labs: Lab Results 08/31/24 09/01/24 Range/Units 23:21 01:03 WBC 6.3 (4.8-10.8) X10*3/uL RBC 3.12 L (4.20-5.50) X10*6/uL Hgb 9.5 L (12.0-16.0) g/dl Hct 28.7 L (37.0-47.0) % MCV 92.0 (80.0-98.0) fL MCH 30.4 (27.0-33.0) pg MCHC 33.1 (31.0-35.0) g/dl RDW 14.0 (11.0-16.0) % Plt Count 136 L D (160-400) X10*3/uL MPV 8.6 L (9.4-12.3) fL Immature Gran % (Auto) 0.2 (0.0-0.4) % Neut % (Auto) 65.4 (45-73) % Lymph % (Auto) 18.0 L (20-40) % [place] % (Auto) 7.5 (2-11) % Eos % (Auto) 8.1 H (0-4) % Baso % (Auto) 0.8 (0-2) % Lymph # (Auto) 1.1 L (1.2-4.9) X10*3/uL [place] # (Auto) 0.5 (0.1-1.2) X10*3/uL Eos # (Auto) 0.5 H (0.0-0.4) X10*3/uL Baso # (Auto) 0.1 (0.0-0.2) X10*3/uL Abs Immat Gran (auto) 0.01 (0.00-0.03) X10*3/uL Absolute Neuts (auto) 4.1 (2.0-8.3) x10*3/uL Absolute Nucleated RBC 0.000 (0.0-0.012) X10*3/uL Nucleated RBC % (auto) 0.0 (0.0-0.2) /100WBC Sodium 142 (135-145) mmol/L Potassium 4.9 (3.3-5.1) mmol/L Chloride 112 H (96-108) mmol/L Carbon Dioxide 22 (22-29) mmol/L Anion Gap 13 (12-20) BUN 40 H (9-16) mg/dL Creatinine 2.15 H (0.5-1.4) mg/dL Estim Creat Clear Calc 21.2 Estimated GFR 22 Random Glucose 145 H (60-115) mg/dL Calcium 8.1 L (8.4-10.2) mg/dL Magnesium 2.0 (1.6-2.6) mg/dL Troponin I High Sens 18.3 H D 19.6 H (<3.5-17.0) ng/L B-Natriuretic Peptide 75 (<100) pg/mL Independent Interpretation I performed an independent interpretation of an: EKG and Plain X-Ray Radiology Impression Discussion of test interpretation with radiology: I have reviewed the radiologist's reading. Radiologist Impression: This examination is mildly limited by suboptimal patient positioning. The patient's face obscures the bilateral lung apices. There is nlph-bo-[id number] elevation of the right hemidiaphragm. No consolidation, pneumothorax, or significant pleural effusion. Small linear opacity identified over the right perihilar region. Heart size normal. Impression: 1. Mildly limited examination related to suboptimal patient positioning. There is cpom-ea-[id number] elevation of the right hemidiaphragm with a small linear focus of subsegmental atelectasis versus scarring over the lower right perihilar region.. Otherwise, no acute cardiopulmonary process identified. No focal pulmonary consolidation. Critical Care Time Critical Care Time Critical Care Time: Yes Total Critical Care Time: 60 Attestation: I have personally provided critical care time. Time includes review of lab data, radiology results, discussion with consultants, and monitoring for potential decompensation. Intervention performed as documented. Discharge Plan Discharge Clinical Impression: Hypertensive urgency Patient Disposition: Home, Self-Care Instructions: Chest Pain (ED), Hypertension (ED) Additional Instructions: please discontinue taking Lasix and replace it with chlorthalidone which will help you as a diuretic and to control your blood pressure. Please follow-up with your primary care physician tomorrow. If you have any worsening or new symptoms, please return to the emergency room or call 911 Prescriptions: New chlorthalidone 25 mg tablet 25 mg PO DAILY Qty: 30 0RF No Action (DME) lancets [FreeStyle Lancets] 28 gauge misc See Rx Instructions .ROUTE .MEDSUPPLY Qty: 100 11RF Rx Instructions: As directed ferrous sulfate 325 mg (65 mg iron) tablet,delayed release (DR/EC) 325 mg PO DAILY 90 Days Qty: 90 1RF (DME) pen needle, diabetic 32 gauge x 5/32 needle See Rx Instructions .ROUTE TID Qty: 50 11RF Rx Instructions: As directed montelukast 10 mg tablet 10 mg PO BEDTIME 90 Days Qty: 90 1RF (DME) grab bars See Rx Instructions .Route .MEDSUPPLY Qty: 3 0RF Rx Instructions: As directed (DME) blood-glucose meter [FreeStyle Dutton Lite] Kit See Rx Instructions .ROUTE .MEDSUPPLY Qty: 1 0RF Rx Instructions: 3 x/day furosemide 40 mg Tablet 40 mg PO DAILY metoclopramide HCl 5 mg Tablet 5 mg PO TID hydrocortisone-pramoxine [Analpram-HC] 2.5-1 % Cream 1 appl CO BID escitalopram oxalate [Lexapro] 5 mg Tablet 5 mg PO DAILY Tiffanie-Mucil 3.4 gram/5.4 gram Powder 1 tsp PO DAILY Rx Instructions: mix into at least 4 oz water or juice before administering tramadol 50 mg tablet 50 mg PO Q8H PRN (Reason: MODERATE TO SEVERE PAIN) acetaminophen 325 mg Tablet 650 mg PO Q6H PRN (Reason: Fever Or Pain) polyethylene glycol 3350 17 gram Powder In Packet 17 g PO BID PRN (Reason: Constipation) clonazepam 0.5 mg tablet 0.5 mg PO BEDTIME gabapentin 800 mg Tablet 800 mg PO Q6H atorvastatin 20 mg tablet 20 mg PO BEDTIME calcium carbonate-vitamin D3 [Calcium 600 + D(3)] 600 mg-10 mcg (400 unit) Tablet 1 tab PO BID allopurinol 100 mg Tablet 50 mg PO MoTh@0900 Qty: 10 0RF colchicine 0.6 mg tablet 0.6 mg PO Q2D Qty: 10 0RF Rx Instructions: hold if there is diarrhea Trulicity 0.75 mg/0.5 mL pen injector subcut hydrocodone-acetaminophen 5-325 mg tablet 1 tab PO Q4-6H PRN (Reason: pain) Qty: 30 0RF Rx Instructions: Partial Fill upon patient request. docusate sodium 100 mg capsule 100 mg PO BID PRN (Reason: Constipation) (DME) lancets 33 gauge misc See Rx Instructions .ROUTE .MEDSUPPLY Qty: 100 Rx Instructions: As directed insulin aspart U-100 100 unit/mL (3 mL) insulin pen See Protocol subcut TID Protocol: Insulin Correction Scale Less than or equal to 110 ---- Give (units): 0 111 to 150 Give (units): 0 151 to 200 Give (units): 0 201 to 250 Give (units): 3 251 to 300 Give (units): 4 301 to 350 Give (units): 6 Greater than 350 Give (units): 9 Call MD if Blood Glucose > : 350 albuterol sulfate 90 mcg/actuation HFA aerosol inhaler 2 puff inhalation Q4H PRN (Reason: Wheezing) Lantus Solostar U-100 Insulin 100 unit/mL (3 mL) insulin pen 25 unit subcut BEDTIME Rx Instructions: 1/2 dose given Print Language: [place]
[2024-08-31 23:25] LABS: MANUAL DIFF FLAG NO
[2024-08-31 23:27] LABS: Hematocrit 28.7 % (37.0-47.0); Hemoglobin 9.5 g/dl (12.0-16.0); Imm Gran Abs Auto 0.01 X10*3/uL (0.00-0.03); Imm Gran Pct Auto 0.2 % (0.0-0.4); Lymphocytes Absolute Auto 1.1 X10*3/uL (1.2-4.9); Mean Corpuscular HGB Conc 33.1 g/dl (31.0-35.0); Mean Corpuscular Hemoglobin 30.4 pg (27.0-33.0); Mean Corpuscular Volume 92.0 fL (80.0-98.0); NRBC Abs Auto 0.000 X10*3/uL (0.0-0.012); NRBC Pct Auto 0.0 /100WBC (0.0-0.2); Platelet Count 136 X10*3/uL (160-400); Red Blood Count 3.12 X10*6/uL (4.20-5.50); White Blood Count 6.3 X10*3/uL (4.8-10.8)
[2024-08-31 23:46] LABS: Anion Gap 13 (12-20); Blood Urea Nitrogen 40 mg/dL (9-16); Calcium 8.1 mg/dL (8.4-10.2); Carbon Dioxide 22 mmol/L (22-29); Chloride 112 mmol/L (96-108); Creatinine Clr Calc Pharmacy 21.2; Estimated Glomerular Filt Rate 22; Magnesium 2.0 mg/dL (1.6-2.6); Potassium 4.9 mmol/L (3.3-5.1); Sodium 142 mmol/L (135-145)
[2024-08-31 23:53] LABS: Troponin-I High Sensitivity 18.3 ng/L (<3.5-17.0)
[2024-09-01 00:04] LABS: B Type Natriuretic Peptide 75 pg/mL (<100)
[2024-09-01 00:23] VITALS: BP 149/51; PULSE 65; RESP 11; TEMP 36.6; O2SAT 94
[2024-09-01 01:28] LABS: Troponin-I High Sensitivity 19.6 ng/L (<3.5-17.0)
[2024-09-01 02:00] VITALS: BP 124/39; PULSE 66; RESP 12; O2SAT 95
[2024-09-01 03:11] VITALS: BP 124/59; PULSE 57; RESP 12; TEMP 36.8; O2SAT 96
[2024-09-01 05:20] VITALS: BP 164/78; PULSE 63; RESP 16; TEMP 36.6; O2SAT 96
[2024-09-01 05:33] VITALS: BP 164/78; PULSE 63; RESP 16; TEMP 36.6; O2SAT 96
--- NOTE | 2024-09-01 05:46 | PC.NURSE ---
report called to Santosh Trivedi spoke with Leo
== END 2024-09-01 05:46 | disposition home or self-care (01) ==
PROVIDERS: Emergency Provider Emergency Medicine
DX: I16.0 Hypertensive urgency (principal); R06.02 Shortness of breath; E11.22 Type 2 diabetes mellitus with diabetic chronic kidney disease; I12.9 Hypertensive chronic kidney disease with stage 1 through stage 4 chronic kidney disease, or unspecified chronic kidney disease; N18.4 Chronic kidney disease, stage 4 (severe); E78.00 Pure hypercholesterolemia, unspecified; Z87.891 Personal history of nicotine dependence; Z79.02 Long term (current) use of antithrombotics/antiplatelets; Z79.85 Long-term (current) use of injectable non-insulin antidiabetic drugs; Z79.4 Long term (current) use of insulin; Z79.899 Other long term (current) drug therapy
CPT/HCPCS: 36415; 71045; 80048; 83735; 83880; 84484; 85025; 93005; 99284; 99291

== ENCOUNTER → 2024-08-31 23:07 | Outpatient (BNV) | payer MEDICARE, MEDICAID, SELFPAY | PROVIDERS: Emergency Provider Emergency Medicine; Visit Provider Internal Medicine Cardiovascular Disease | DX: R94.31 Abnormal electrocardiogram [ECG] [EKG] (principal); R07.89 Other chest pain | CPT/HCPCS: 93010 ==

== ENCOUNTER → 2024-08-31 23:20 | Outpatient (BNV) | payer MEDICARE, MEDICAID, SELFPAY | PROVIDERS: Emergency Provider Emergency Medicine; Visit Provider Radiology Diagnostic Radiology | DX: R05.9 Cough, unspecified (principal) | CPT/HCPCS: 71045 ==

== ENCOUNTER 2024-09-04 07:56 | Outpatient (REF) | payer MEDICARE, MEDICAID, SELFPAY ==
--- OUTSIDE RECORDS SUMMARY | 2024-09-04 07:59 | XMS_ITS | Clinical Summary ---
Author Organization [address] [place] [address] Address [address] [place] [address] Phone Care Team Providers Care Pipeline Dispatcher Name Role Phone Denis Andino MD Primary Care Provider [phone] Encounters Date Type Department Care Team Description 08/15/[address] [address] Betsey Guillen MD Appointment from Last 3 Months Social History Tobacco Use Types Packs/Day Years Used Date Smoking Tobacco: Never Assessed Comments Unknown Sex and Gender Information Value Date Recorded Sex Assigned at Not on file Legal Sex Female 1:56 PM EST Gender Identity Not on file Sexual Orientation Not on file Plan of Treatment Upcoming Encounters Date Type Department Care Team ([facility] Contact Info) Description 11/05/2024 1:20 PM EDT Consult Gastroenterology [address] [address] Laya Ramírez NP [address] [address] Health Maintenance Due Date Last Done Comments DTaP,Tdap,and Td Vaccines (1 - Tdap) 05/08/1964 Pneumococcal Vaccine: 50+ Ye ars (1 of 1 - PCV) 1994 Zoster Vaccines (1 of 2) 1994 RSV Immunization Adult Patie nts (1 - 1-dose 75+ series) 05/08/2019 COVID-19 Vaccine (2023-2 5 season) 2023 Depression Screening 08/16/2024 Falls Risk Assessment 08/16/2024 Medicare Annual Wellness Visit 08/16/2024 Osteoporosis Screening (Bone Density Screening) 08/16/2024 Social Influencers of Health Screening 08/16/2024 Influenza Vaccine (#1) 2024 HIB Vaccines Aged Out No longer eligi ble based on patient's age to complete this topic HPV Vaccines Aged Out No longer eligi ble based on patient's age to complete this topic Hepatitis A Vaccines Aged Out No long er eligible based on patient's age to complete this topic Hepatitis B Vaccines Aged Out No long er eligible based on patient's age to complete this topic IPV Vaccines Aged Out No longer eligi ble based on patient's age to complete this topic MMR Vaccines Aged Out No longer eligi ble based on patient's age to complete this topic Meningococcal ACWY Vaccine Aged Out N o longer eligible based on patient's age to complete this topic Meningococcal B Vaccine Aged Out No l onger eligible based on patient's age to complete this topic RSV Immunization Patients Un minerva 20 months Aged Out No longer eligible b ased on patient's age to complete this topic Varicella Vaccines Aged Out No longer eligible based on patient's age to complete this topic Insurance MEDICARE MEDICAID - [place] Care Teams Pipeline Dispatcher Relationship Specialty Start Date End Date Denis Andino MD [address] [place] [phone] PCP - General Family Medicine 08/15/24
--- OUTSIDE RECORDS SUMMARY | 2024-09-04 07:59 | XMS_ITS | Patient Health Record ---
Author Organization [facility] Address [address] [place] [address] Care Team Providers Care Refrigeration Specialist Name Role Phone Blake Hinojosa Unavailable [phone] Reason For Referral No Information Plan Of Treatment No Information
[2024-09-04 08:00] LABS: MANUAL DIFF FLAG NO
--- OUTSIDE RECORDS SUMMARY | 2024-09-04 08:00 | XMS_ITS | Clinical Summary ---
Author Organization [facility] Address [address] [place] [address] [address] [place] [id number] Phone Care Team Providers Care Technical Illustrations Map Inker Name Role Phone Rossi Montiel MD Primary Care Provider [phone] Allergies Active Allergy Reactions Criticality Noted Date [...] to type 2 diabetes mellitus 0 07/23/2020 Encounters Date Type Department Care Team Description 06/28/2024 Orders Only [facility] [address] [place] [address] Rhett Dai MD Stage 3b chronic kidney disease (HCC); Persistent proteinuria; Benign essential hypertension 06/21/2024 3:00 PM EDT Office Visit [facility] [address] [place] [address] Rhett Dai MD Stage 3b chronic kidney disease (HCC) (Primary Dx); Persistent proteinuria; Benign essential hypertension from Last 3 Months Immunizations Immunization Administration Dates Next Due Influenza Vaccine, Quadrivalent, Adjuvanted 08/2022 Influenza, Quadrivalent, With Preservative 12/09 [facility] SARS-COV-2 05/21/2020,04/21/2020 Family History Medical History Relation [...] Sign Reading Time Taken Comments Blood Pressure 160/100 06/21/2024 2:57 PM EDT Pulse 63 06/21/2024 2:57 PM EDT Temperature - - Respiratory Rate - - Oxygen Saturation 98% 06/21/2024 2:57 PM EDT Inhaled Oxygen Concentration - - Weight 83.5 kg (184 lb) 08/16/2023 2:46 PM EDT Height 160 cm (5' 3 ) 07/04/2019 12:00 PM EDT Body Mass Index 32.59 07/04/2019 12:00 PM EDT Plan of Treatment Upcoming Encounters Date Type Department Care Team (Late st Contact Info) Description 12/31/2024 3:00 PM EST Office Visit [facility] [address] [place] [id number] Rhett Dai MD [phone] [facility] [address] [place] [address] Health Maintenance Due Date Last Done Comments Pneumococcal Vaccine: 50+ Years (1 of 2 - PCV) 05/08/1964 Diabetes: Hemoglobin A1C 03/24/2020 Diabetes: Ophthalmology Exam 03/24/2020 Diabetes: Pedal Pulse Checked 03/24/2020 Diabetes: Sensory Foot Exam 03/24/2020 Diabetes: Visual Foot Exam 03/24/2020 Influenza Vaccine (#1) 2024 3, 12/09/2021 Hepatitis B Vaccine Aged Out No longe r eligible based on patient's age to complete this topic Insurance Medicare Medicaid [place] Medicare Medicaid [place] Care Teams Technical Illustrations Map Inker Relationship Specialty Start Date End Date Rossi Montiel MD [address] [place], [place] PCP - General 03/03/20
--- OUTSIDE RECORDS SUMMARY | 2024-09-04 08:00 | XMS_ITS | Data Portability ---
Author Organization [facility], Main Office Address [address] [place] [address] Care Team Providers Care Voice Over Announcer Name Role Phone SARAH MELENDEZ [facility] OTHER Assessment Encounter Date [...] and Address Organization Details Recorded Time Falls [id number] Active 2020 JAREK CHARANJIT, MANAGER ORGANIZATIONAL [address], [place], [address], [facility] 12:59:57 Muscle weakness 99996648 Active 2020 JAREK CHARANJIT, MANAGER ORGANIZATIONAL [address], [address], [place], [address], [facility] 13:23:00 Hyperlipide manuelito 77659460 Active 2020 JAREK DONOHUE, MANAGER ORGANIZATIONAL [address], [address], [place], [address], [facility] 1 13:27:57 Anxiety 80039086 Active 2020 JAREK DONOHUE NP [address], [address], [place], [address], [facility] 1 13:29:56 Osteoporosi s 13422634 Active 2020 Tami Koroma MD [address], [address], [place], [address], [facility] 1 22:38:51 Paresthesia of hand 731609723 Active 2020 Tami Koroma MD [address], [address], [place], [address], [facility] 1 22:49:02 Pain of right hip joint 9379153220587 02 Active 2021 Tami Koroma MD [address], [address], [place], [address], [facility] 2 20:36:19 Pain of right ankle joint 4233195665826 9106 Active 2021 Tami Koroma MD [address], [address], [place], [address], [facility] 2 20:36:23 SARS-CoV-2 Active 2021 JAREK DONOHUE NP [address], [address], [place], [address], [facility] 2 14:11:45 Chronic kidney disease stage 3A 298124616 Active 2021 Denis Andino MD [address], [address], [place], [address], [facility] 2 12:01:34 Edema of lower extremity 197485228 Active 2021 JAREK DONOHUE NP [address], [address], [place], [address], [facility] 2 13:53:14 Cellulitis of foot 088608946 Active 2021 JAREK DONOHUE NP [address], [address], [place], [address], [facility] 2 14:35:54 Peripheral vascular disease 977573778 Active 2021 JAREK DONOHUE NP [address], [address], [place], [address], [facility] 2 13:11:46 Pain of left wrist 0768483676951 02 Active 2021 JAREK DONOHUE NP [address], [address], [place], [address], [facility] 2 13:23:39 Depressive disorder 43660636 Active 2022 JAREK DONOHUE NP [address], [address], [place], [address], [facility] 3 10:49:37 Pain in coccyx 74709329 Active 2022 JAREK DONOHUE NP [address], [address], [place], [address], [facility] 3 14:00:08 Acute kidney injury 91904333 Active 2022 Lamar Pickett NP [address], [address], [place], [address], [facility] 3 11:30:14 Hyperkalemi a 65782975 Active 2022 Lamar Pickett NP [address], [address], [place], [address], [facility] 3 11:39:22 Normal grief reaction 109018798 Active 2022 JAREK DONOHUE NP [address], [address], [place], [address], [facility] 3 13:03:50 History of hernia repair 6384009402887 9 Active 2023 SARAHI MCFARLAND [address], [address], [place], [address], [facility] 4 17:36:19 Chronic pain 23983660 Active 2018 Denis Andino MD [address], [place], [address], [facility] 9 11:58:23 Chronic obstructive pulmonary disease 49486830 Active 2018 Denis Andino MD [address], [address], [place], [address], [facility] 9 11:58:30 Asthma 435581803 Active 2018 Denis Andino MD [address], [address], [place], [address], [facility] 9 11:58:36 Osteoarthri tis 087645146 Active 2018 Denis Andino MD [address], [address], [place], [address], [facility] 9 11:58:52 Diabetes mellitus 57262883 Active 2018 Denis Andino MD [address], [address], [place], [address], [facility] 9 11:59:04 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 2018 Denis Andino MD [address], [address], [place], [address], [facility] 9 11:59:22 Essential hypertensio n 39855954 Active 2018 Denis Andino MD [address], [address], [place], [address], [facility] 9 12:02:34 Gout 50897139 Active 2018 Denis Andino MD [address], [address], [place], [address], [facility] 9 12:02:51 Notes:Some problems listed i n Documents: #[id number], #[id number], #[id number], #[id number], #[id number], #[id number], #[id number] could not be added to this patient's [...] Heart rate Body temperature Respiratory rate Systolic And Diastolic Provider Name and Address Organization Details Last Updated DateTime 5 157.48 cm 76 /min 98 [degF] 18 /min 120/70 mm[Hg] SARAHI MCFARLAND [address], [place], [address], [facility] 5 22:33:58 Date Recorded Body height Heart rate Respiratory rate Body temperature Oxygen saturation Oxygen saturation in Arterial blood by Pulse oximetry Systolic And Diastolic Provider Name and Address Organization Details Last Updated DateTime 5 157.48 cm 72 /min 18 /min 97.8 [degF] 97 % 97 % 136/72 mm[Hg] CUONG JONES CNP [address], [address], [place], [address], [facility] 5 13:37:46 Social History Question Answer Notes LastModified by Organizat ion Details LastModified Time Tobacco Smoking Status Former Smoker smoked 2 ppd until 10 yrs ago. Tami Koroma MD [address], [facility] [address], [place], [address], [facility] 12/28/2020 21:43:37 Do You Have An Advance Directive? Yes Information not available 12/24/2020 What Is Your Code Status? Full Code Information not available 12/24/2020 Where Do You Live? [facility] [place] Information not available 09/20/2022 Legal Guardian? No Informati on not available 12/28/2020 Do You Have A Medical Power Of Supervisor [employer]? Yes Information not available 12/28/2020 What Was [...] Many Years Have You Smoked Tobacco? 25 [id number] Information not available 12/18/2019 Sex: Unknown Functional Status Question Answer Note LastModified by Medicine in Practice ion Details LastModified Time Do you use [...] 30 mcg/0.3 mL dose 1 completed Laisha batres [facility] 03/18/2021 12:20:45 COVID-19, mRNA, LNP-S, PF, 30 mcg/0.3 mL dose 1 completed [place] [facility] 03/18/2021 12:20:49 Influenza, split virus, quadrivalent, preservative 2 completed Seema batres, [facility] 12/16/2021 13:31:41 Influenza, adjuvanted, quadrivalent, PF 3 completed Erendira batres, [facility] 03/10/2023 12:24:16 Past Encounters Encounter ID Performer Location Encounter Start Date Encounter Closed Date Diagnosis/Indication Diagnosis SNOMED-CT Code Diagnosis ICD10 Code Diagnosis Note [id number] WILFREDO WATTERS [address] [place] [address] 02/27/2018 08:51:51 03/24/2018 10:48:16 Chest wall pain 020074282 R07.89 ACS ruled out.monito r for sx. Chronic ob structive pulmonary disease 23095214 J44.9 stable, no sx. Continue:s pirivasing ulairalbut jone prn Physical deconditioning 7958049564 9102 R68.89 admit to [facility] for rehab[facility]/OT eval Osteoarthritis 646663985 M19.90 stable, continue:n aproxen bidtylenol prn Fibromyalgia 013048923 M 79.7 stable, chroniclyr icanaproxe ngabapenti ntramadol prn History of benign neoplasm of brain 866840312 Z86.011 unknown disease or dx.will contact pcps office for further info. Essential hypertension 95447733 I10 stable continue:c ozaarlasix ASA Peripheral nerve disease 494764733 G64 stable continue:l yricagabap entintrama dol prn Generalize d anxiety disorder 86915216 F41.1 stableklon opin prn Gout 63551378 M10.9 stable, no sx. Continue:a llopurinol scheduled colchicine scheduled [id number] Denis Andino MD [address] [place] [address] 03/03/2018 11:49:38 03/24/2018 08:46:23 Atypical chest pain 518515732 R07.89 ruled out for cardiac etiology in hospital[facility]itor at facility [place] 67719103 R53.1 PT OT eval and treatmonit or fall risk Chronic pain 42985595 G8 9.29 carrying dxsent from hospital ongabapent in 800 mg qid lyrica 75 mg bidwill d/c lyricamoni tor for sx control Chronic ob structive pulmonary disease 54094389 J41.1 carrying dxdistant hx tobaccomon itor pulmonary status Asthma 114686005 J45.30 monitor for sx Osteoarthritis 439686251 M15.0 chronic painmonito r with lyrica d/c'ed Diabetes mellitus 228990 09 E11.9 metformin 1000 mg bidmonitor blood glucose Gout 75156585 M10.09 colchicine 0.6 mg bidmonitor for sx control Essential hypertension 83321257 I10 cozaar 50 mg qdlasix 20 mg qdstartnor vasc 5 [place] [id number] WILFREDO WATTERS [address] [place] [address] 03/06/2018 09:10:29 03/24/2018 09:06:35 Atypical chest pain 994073272 R07.89 ruled out for cardiac etiology in [facility] at facility [place] 37352722 R53.1 PT OT eval and treatmonit or fall risk Chronic pain 34659847 G8 9.29 carrying dx- h/o fibromyalg ia, peripheral neuropathy and OA, continuega bapentin 800 mg qidnaproxe ntramadolk lonopin lyrica d/c'd given pt also on jg.monit or for sx control Chronic ob structive pulmonary disease 74525758 J41.1 carrying dxdistant hx tobaccomon itor pulmonary status Asthma 701421014 J45.30 monitor for sx Diabetes mellitus 259350 09 E11.9 metformin 1000 mg bidmonitor blood glucose Gout 16394017 M10.09 on chronic colchicine and allopurino l. unclear if foot pain is gout flare, will check uric acid level. Essential hypertension 68044868 I10 stable,no sx.continu e lasix, cozaar, norvasc. Pain in both feet 206251 1460 3151386 M79.671 M79.672 unclear etiology. joints not warm, swollen, red and pt already on colchicine and allopurino l as well as naproxen, tramadol and gabapentin . check uric acid level along with todays labs that are pending. add lidocaine cream for now to help with pain. [id number] WILFREDO WATTERS [address] [place] [address] 03/14/2018 11:25:40 03/24/2018 09:45:28 Pain in both feet 2332180933 2089624 M79.671 M79.672 unclear etiology. joints not warm, swollen, red and pt already on colchicine and allopurino l as well as naproxen, tramadol and gabapentin . uric acid was neg. likely related to her h/o fibromyalg ia and chronic pain. Recc continue current regimen and PT/ wt bearing activity will help as well. has idocaine cream for now to help with pain. Chronic pain 27785688 G8 9.29 carrying dx- h/o fibromyalg ia, peripheral neuropathy and OA, continuega bapentin 800 mg qidnaproxe ntramadolk lonopin lyrica d/c'd given pt also on jg.monit or for sx control Atypical chest pain 1025 99120 R07.89 ruled out for cardiac etiology in [facility] at facility [place] 06936770 R53.1 PT OT eval and treatmonit or fall risk Chronic ob structive pulmonary disease 76828333 J41.1 carrying dxdistant hx tobaccomon itor pulmonary status Asthma 495693511 J45.30 monitor for sx Diabetes mellitus 539999 09 E11.9 metformin 1000 mg bidmonitor blood glucose Essential hypertension 24916924 I10 stable,no sx.continu e lasix, cozaar, norvasc. [id number] WILFREDO WATTERS [address] [place] [address] 03/17/2018 11:44:34 03/24/2018 10:22:41 Atypical chest pain 845524304 R07.89 ruled out for cardiac etiology in [facility] at facility [place] 81832007 R53.1 PT OT eval and treatmonit or fall risk Essential hypertension 05068785 I10 stable,no sx.continu e lasix, cozaar, norvasc.in crease norvasc to 10mg/d and monitor. [id number] WILFREDO WATTERS [place] [address] [place] [facility], [place] [address] 03/23/2018 11:27:44 04/03/2018 12:13:05 Essential hypertension 13932655 I10 stable,no sx.continu e cj, mata, norvasc. Atypical chest pain 1025 44213 R07.89 ruled out for cardiac etiology in hospitalno complaints recently. [place] 89345823 R53.1 completed rehab, ready for d/c home. Chronic ob structive pulmonary disease 81201512 J41.1 carrying dxdistant hx tobaccomon itor pulmonary status Diabetes mellitus 492315 09 E11.9 metformin 1000 mg bidsugars stable here.f/u with pcp after d/c. Chronic pain 13795495 G8 9.29 carrying dx- h/o fibromyalg ia, peripheral neuropathy and OA, continuega bapentin 800 mg qidnaproxe ntramadolk lonopin lyrica d/c'd given pt also on jg.monit or for sx control [id number] STEPHY TRAVIS [address] [place], [place] [address] 12/23/2020 11:54:48 12/25/2020 15:23:14 Muscle weakness 66424960 M62.81 PT OT eval and treat Asthma 952796297 J45.30 singulair 10 mg dailyalbut jone mdi q4 hr prn Chronic ob structive pulmonary disease 63496065 J41.1 albuterol mdi q4hr prn Chronic pain 04502793 G8 9.29 tramadol 50 mg q6hr prngabapen tin 800 mg qid Diabetes mellitus 857517 09 E11.9 victoza 1.8 mg dailyglarg ine 24 units hsmetformi n 1000 mg bidlispro sliding scale Essential hypertension 75805316 I10 losartan 50 mg dailyspiro nlactone 25 mg dailylasix 20 mg bidmonitor bp Gout 32433899 M10.09 allopurino l 300 mg dailycolch ecine 0.6 mg daily Osteoarthritis 699670151 M15.0 CaD 600/400 dailytrama dol 50 mg q6hr prn Falls 601180594 R29.6 PT OT eval and treatfall precaution sfrequent safety checks Hyperlipidemia 05967484 E78.5 atorvastat in 20 mg daily Anxiety 03708819 F41.9 clonazapam n0.5 mg q12 hr prn [id number] MD GENARO Panda [address] [place] [address] [place] [address] 12/24/2020 19:12:07 12/30/2020 12:30:17 Muscle weakness 57710739 M62.81 Very deconditio john.Needs PT/OT as above.Cont inue fall precaution s.Monitor for safety. Asthma 123399452 J45.30 No current sxs.Contin ue singulair 10 mg qd and albuterol MDI 2 puffs q 4 hrs prn.Monito r resp. status Chronic ob structive pulmonary disease 42168625 J41.1 As above. Diabetes mellitus 467267 09 E11.42 Good control on victoza 1.8 mg qd, lantus 24U qd, metformin 1000 mg BID and SSI.Monito r accuchecks QID. Essential hypertension 83926407 I10 Borderline control on current meds. Will continue for now, but adilson need to make adjustment s.Continue losartan 50 mg qd, spironolac tone 25 mg qd and lasix 20 mg BID.Monito r BP and labs Gout 51771282 M10.09 Continue allopurino l 300 mg qd and colchicine 0.6 mg qd.Monitor sxs. Osteoarthritis 817408653 M15.0 With chronic pain.Connie nue meds and rehab as above. Falls 388798924 R29.6 as above. Hyperlipidemia 18954942 E78.49 Continue atorvastat in 20 mg qd.Monitor labs as outpt. Anxiety 91770938 F41.1 Continue clonazapam 0.5 mg q 12 hrs prnMonitor mood.Psych consult prn. Pain of ri ght ankle joint 5438255006 1428021 M25.571 As above. Pain of ri ght hip joint 9336012086 30154 M25.551 No acute injury found.Cont inue gabapentin 800 mg QID and tramadol 50 mg q 6 hrs prn.Contin ue PT/OT strengthen ing, balance, gait training, safety and function.M onitor sxs. Osteoporosis 07513784 M8 1.0 Continue Ca/D 600/400 mg qd.Monitor as outpt. Paresthesia of hand 3090 50620 R20.2 Concerning for pinched nerve in neck or brachial plexus. Could also be c/w neuropathy from EtOH abuse in the past or CVA.Will get head and neck CT to evaluate. [id number] JAREK DONOHUE NP GENARO [place] [address] 12/29/2020 11:06:01 12/31/2020 16:10:33 Chronic obstructive pulmonary disease 71069253 J41.1 albuterol mdi q4hr prn Paresthesia of hand 3090 67453 R20.2 Concerning for pinched nerve in neck or brachial plexus. Could also be c/w neuropathy from EtOH abuse in the past or CVA. ordered neckhead CT to evaluate Muscle weakness 65859375 M62.81 PT OT eval and treat [id number] CATHLEEN Swann [facility] [place] [address] 01/01/2021 09:27:04 01/02/2021 16:16:11 Paresthesia of hand 141549918 R20.2 DDx: pinched nerve, trigger point, brachial plexus injuryCoul d also be c/w neuropathy from EtOH abuse in the past or CVA. 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 if continues [id number] JAREK DONOHUE NP GENARO [place] [address] 01/06/2021 11:02:16 01/08/2021 15:54:44 Chronic obstructive pulmonary disease 40650415 J41.1 albuterol mdi q4hr prnmonitor resp status Muscle weakness 56076808 M62.81 PT OT eval and treat [id number] JAREK DONOHUE NP [address]AR[place] [address] 01/13/2021 08:26:54 01/20/2021 15:54:42 Pain of right hip joint 8433549505 38506 M25.551 No acute injury found.Cont inue gabapentin 800 mg QID and tramadol 50 mg q 6 hrs prn.Contin ue PT/OT strengthen ing, balance, gait training, safety and function.M onitor sxs. Pain of ri ght ankle joint 8919811052 7497991 M25.571 As above. Paresthesia of hand 3090 59002 R20.2 Concerning for pinched nerve in neck or brachial plexus. Could also be c/w neuropathy from EtOH abuse in the past or CVA.Will get head and neck CT to evaluate. Muscle weakness 85299606 M62.81 Very deconditio john.Needs PT/OT as above.Cont inue fall precaution s.Monitor for safety. Asthma 751030018 J45.30 No current sxs.Contin ue singulair 10 mg qd and albuterol MDI 2 puffs q 4 hrs prn.Monito r resp. status Chronic ob structive pulmonary disease 24600745 J41.1 As above. Diabetes mellitus 863457 09 E11.42 Good control on victoza 1.8 mg qd, lantus 24U qd, metformin 1000 mg BID and SSI.Monito r accuchecks QID. Essential hypertension 25254344 I10 Borderline control on current meds. Will continue for now, but adilson need to make adjustment s.Continue losartan 50 mg qd, spironolac tone 25 mg qd and lasix 20 mg BID.Monito r BP and labs Gout 54543568 M10.09 Continue allopurino l 300 mg qd and colchicine 0.6 mg qd.Monitor sxs. Osteoarthritis 352065159 M15.0 With chronic pain.Connie nue meds and rehab as above. Falls 886901247 R29.6 as above. Hyperlipidemia 23731231 E78.49 Continue atorvastat in 20 mg qd.Monitor labs as outpt. Anxiety 23706107 F41.1 Continue clonazapam 0.5 mg q 12 hrs prnMonitor mood.Psych consult prn. Osteoporosis 35392964 M8 1.0 Continue Ca/D 600/400 mg qd.Monitor as outpt. [id number] STEPHY TRAVIS [address] [place] [address] [place] [address] 01/20/2021 09:50:56 01/23/2021 11:16:04 Paresthesia of hand 956415920 R20.2 Concerning for pinched nerve in neck or brachial plexus. Could also be c/w neuropathy from EtOH abuse in the past or CVA.neuro consult-pr obable nerve damage with minimal possiblity of improvemen t Chronic pain 29029725 G8 9.29 tramadol 50 mg q6hr prngabapen tin 800 mg qid Osteoarthritis 436759752 M15.0 With chronic pain.Connie nue meds and rehab as above. [id number] JAREK DONOHUE, MANAGER ORGANIZATIONAL GENARO TANGELA [address] [place] [address] 01/27/2021 10:46:36 01/30/2021 13:02:45 Pain of right hip joint 4348451266 76988 M25.551 No acute injury found.Cont inue gabapentin 800 mg QID and tramadol 50 mg q 6 hrs prn.Contin ue PT/OT strengthen ing, balance, gait training, safety and function.M onitor sxs. Pain of ri ght ankle joint 2109256264 2204304 M25.571 As above. Paresthesia of hand 3090 31603 R20.2 Concerning for pinched nerve in neck or brachial plexus. Could also be c/w neuropathy from EtOH abuse in the past or CVA.Will get head and neck CT to evaluate. Muscle weakness 88519957 M62.81 Very deconditio john.Needs PT/OT as above.Cont inue fall precaution s.Monitor for safety. Asthma 727094088 J45.30 No current sxs.Contin ue singulair 10 mg qd and albuterol MDI 2 puffs q 4 hrs prn.Monito r resp. status Chronic ob structive pulmonary disease 47152959 J41.1 As above. Diabetes mellitus 269291 09 E11.42 Good control on victoza 1.8 mg qd, lantus 24U qd, metformin 1000 mg BID and SSI.Monito r accuchecks QID. Essential hypertension 21541499 I10 Borderline control on current meds. Will continue for now, but adilson need to make adjustment s.Continue losartan 50 mg qd, spironolac tone 25 mg qd and lasix 20 mg BID.Monito r BP and labs Gout 64003288 M10.09 Continue allopurino l 300 mg qd and colchicine 0.6 mg qd.Monitor sxs. Osteoarthritis 206199228 M15.0 With chronic pain.Connie nue meds and rehab as above. Falls 343928583 R29.6 as above. Hyperlipidemia 68059354 E78.49 Continue atorvastat in 20 mg qd.Monitor labs as outpt. Anxiety 21827256 F41.1 Continue clonazapam 0.5 mg q 12 hrs prnMonitor mood.Psych consult prn. Osteoporosis 75136851 M8 1.0 Continue Ca/D 600/400 mg qd.Monitor as outpt. [id number] Tami Koroma MD [address] [place] [address] 02/16/2021 16:25:03 02/24/2021 11:45:46 Pain of right hip joint 7039948323 42432 M25.551 Continues with pain, but improving. Continue gabapentin 800 mg QID and tramadol 50 mg q 6 hrs prn.Contin ue PT/OT strengthen ing, balance, gait training, safety and function.M onitor sxs. Pain of ri ght ankle joint 2061563684 4223589 M25.571 As above. Paresthesia of hand 3090 44533 R20.2 Per neuro likely to be permanent nerve damage.Con tinue rehab and monitor for improvemen t. Muscle weakness 80634053 M62.81 Continues to be weak.Needs PT/OT as above.Cont inue fall precaution s.Monitor for safety. Asthma 953126853 J45.30 No current sxs.Contin ue singulair 10 mg qd and albuterol MDI 2 puffs q 4 hrs prn.Monito r resp. status Chronic ob structive pulmonary disease 23259903 J41.1 As above. Diabetes mellitus 021840 09 E11.42 Good control on victoza 1.8 mg qd, lantus 24U qd, metformin 1000 mg BID and SSI.Monito r accuchecks QID. Essential hypertension 61680175 I10 Control has improved since here.Connie nue losartan 50 mg qd, spironolac tone 25 mg qd and lasix 20 mg BID.Monito r BP and labs Gout 82181503 M10.09 Continue allopurino l 300 mg qd and colchicine 0.6 mg qd.Monitor sxs. Osteoarthritis 611797135 M15.0 With chronic pain.Connie nue meds and rehab as above. Falls 491839011 R29.6 as above. Hyperlipidemia 23975297 E78.49 Continue atorvastat in 20 mg qd.Monitor labs as outpt. Anxiety 18157802 F41.1 Continue clonazapam 0.5 mg q 12 hrs prnMonitor mood.Psych consult prn. Osteoporosis 54700463 M8 1.0 Continue Ca/D 600/400 mg qd.Monitor as outpt. [id number] JAREK DONOHUE NP [address] [address] 03/02/2021 11:43:23 03/04/2021 13:35:52 SARS-CoV-2 263660730 U07.1 02/28 covid positiveen courage fluid intakeivf for anorexiaco nsider decadron for anorexia [id number] Denis Andino MD [address] [address] 03/03/2021 13:10:53 03/05/2021 14:14:24 COVID-19 788913428 U07.1 See HPIPositiv e covid dxmonitor respirator [...] nephro toxic meds as ablenephro consult prn [id number] JAREK DONOHUE NP [address] [address] 03/04/2021 08:58:02 03/06/2021 15:44:16 COVID-19 013439820 U07.1 03/01 covid positivePo sitive covid dxmonitor [...] nephro toxic meds as ablenephro consult prn [id number] JAREK DONOHUE NP [address] [address] 03/05/2021 13:06:31 03/10/2021 17:44:44 COVID-19 999727297 U07.1 03/01 covid positivePo sitive covid dxmonitor [...] nephro toxic meds as ablenephro consult prn [id number] JAREK DONOHUE NP [address] [address] 03/06/2021 13:32:58 03/11/2021 09:30:32 COVID-19 060002697 U07.1 03/01 covid positivePo sitive covid dxmonitor [...] nephro toxic meds as ablenephro consult prn [id number] JAREK DONOHUE NP [address] [address] 03/09/2021 10:54:29 03/11/2021 10:36:27 COVID-19 148988262 U07.1 03/01 covid positivePo sitive covid dxmonitor [...] nephro toxic meds as ablenephro consult prn [id number] Denis Andino MD [address] [place] [address] 03/10/2021 12:06:21 03/12/2021 16:09:17 COVID-19 458796471 U07.1 Patient covid positiveco ntinue supportive caremonito r PO intake and need for supplement al J1tjatazli y no increase in work of breathingt o ED for acute decompensa tion Chronic renal failure 90 131354 N18.31 appears to have baseline renal failure stage 3monitor renal functionne phro consult prnavoid nephrotoxi c meds as able [id number] JAREK DONOHUE NP [address] [place] [address] 03/12/2021 13:43:56 03/18/2021 13:55:07 Pain of right hip joint [id number] 17975 M25.551 No acute injury found.jg pentin 800 mg QIDtramado l 50 mg q 6 hrs prn.Contin ue PT/OT strengthen ing, balance, gait training, safety and function.M onitor sxs. Pain of ri ght ankle joint [id number] 1656480 M25.571 As above. Paresthesia of hand 3090 67273 R20.2 Concerning for pinched nerve in neck or brachial plexus. Could also be c/w neuropathy from EtOH abuse in the past or CVA. Muscle weakness 80637025 M62.81 Very deconditio john.Needs PT/OT as above.Cont inue fall precaution s.Monitor for safety. Asthma 733257073 J45.30 No current sxs.singul air 10 mg qdalbutero l MDI 2 puffs q 4 hrs prn.Monito r resp. status Chronic ob structive pulmonary disease 11452337 J41.1 As above. Diabetes mellitus 437640 09 E11.42 Good control on victoza 1.8 mg qd,lantus 24U qd,metform in 1000 mg BID and SSI.Monito r accuchecks QID. Essential hypertension 17501237 I10 Borderline control on current meds. Will continue for now, but adilson need to make adjustment s.losartan 50 mg qd,spirono lactone 25 mg qdlasix 40 mg dailyMonit or BP and labs Gout 96129013 M10.09 allopurino l 300 mg qdcolchici ne 0.6 mg qd.Monitor sxs. Osteoarthritis 261915053 M15.0 With chronic pain.Connie nue meds and rehab as above. Falls 961460950 R29.6 as above. Hyperlipidemia 34171330 E78.49 atorvastat in 20 mg qd.Monitor labs as outpt. Anxiety 39887760 F41.1 clonazapam 0.5 mg q 12 hrs prnMonitor mood.Psych consult prn. Osteoporosis 50063934 M8 1.0 Ca/D 600/400 mg qd.Monitor as outpt. COVID-19 719924727 U07.1 03/01 covid positive-r ecovered by date, [...] nephro toxic meds as ablenephro consult prn [id number] STEPHY TRAVIS TANGELA [address] [place] [address] rd [place] [address] 03/19/2021 09:03:16 03/25/2021 08:23:39 Pain of right hip joint 2539637149 37597 M25.551 No acute injury found.jg pentin 800 mg QIDtramado l 50 mg qd prn.Contin ue PT/OT strengthen ing, balance, gait training, safety and function.M onitor sxs. Pain of ri ght ankle joint [id number] 0614199 M25.571 As above. Paresthesia of hand 3090 63761 R20.2 Concerning for pinched nerve in neck or brachial plexus. Could also be c/w neuropathy from EtOH abuse in the past or CVA.Will get head and neck CT to evaluate. Muscle weakness 56128262 M62.81 Very deconditio john.Needs PT/OT as above.Cont inue fall precaution s.Monitor for safety. Asthma 200297219 J45.30 No current sxs.singul air 10 mg qdalbutero l MDI 2 puffs q 4 hrs prn.Monito r resp. status Chronic ob structive pulmonary disease 89546457 J41.1 As above. Diabetes mellitus 648683 09 E11.42 Good control on victoza 1.8 mg qd,lantus 24U qd,metform in 1000 mg BID and SSI.Monito r accuchecks QID. Essential hypertension 11327387 I10 Borderline control on current meds. Will continue for now, but adilson need to make adjustment s.losartan 50 mg qd,spirono lactone 25 mg qdlasix 40 mg daily.Kaylen tor BP and labs Gout 65239879 M10.09 allopurino l 300 mg qdcolchici ne 0.6 mg qd.Monitor sxs. Osteoarthritis 589878518 M15.0 With chronic pain.CaD 600/400 bidContinu e meds and rehab as above. Falls 486075502 R29.6 PT OT eval and treatfall precaution sfrequent safety checks Hyperlipidemia 61122492 E78.49 atorvastat in 20 mg qd.Monitor labs as outpt. Anxiety 22220519 F41.1 clonazapam 0.5 mg q 12 hrs prnMonitor mood.Psych consult prn. Osteoporosis 22845749 M8 1.0 Ca/D 600/400 mg bidMonitor as outpt. SARS-CoV-2 454003686 U07 .1 02/28 covid positive-r ecovered by dateencour age fluid intakeivf for anorexiaco nsider decadron for anorexia [id number] Denis Andino MD [address] [place] [address] 05/20/2021 11:51:35 05/22/2021 13:20:41 Essential hypertension 29601287 I10 losartan 50 mg qdlasix 40 mg qdspironol actone 25 mg qdmonitor bp and need to titrate Chronic ki dney disease stage 3A 532755320 N18.31 patient appears with baseline renal failureon above medsmonito r renal function and nephro consult prn Falls 100018074 R29.6 goal in assisted living[facility] l[facility] with walker with assist at [facility] fall risktherap y reeval prn [id number] [facility] [address] [place] [address] 06/29/2021 13:51:21 07/01/2021 14:54:55 Edema of lower extremity 610611164 R60.0 losartan 50 mg qdlasix 40 mg qd-add 20 mg at suppertime kcl 20 meq dailyspiro nolactone 25 mg qd [id number] Tami Koroma MD [address] [address] 5 07/02/2021 19:25:14 07/14/2021 15:26:55 Edema of lower extremity 697471875 R60.0 Continue meds as above.Elev ate as much as able.Monit or. Essential hypertension 84272952 I10 Good control on losartan 50 mg qd, lasix 40 mg qd, and spironolac tone 25 mg qdContinue KCl 20 meq qd to prevent hypokalemi a.Monitor BP and labs Chronic ki dney disease stage 3A 329303398 N18.31 At baseline.C ontinue to avoid nephrotoxi c meds as able.Monit or labs.Renal consult prn. Falls 636422213 R29.6 Not yet at goal.Connie nues to need assist for ambulation .Continue PT/OT for strengthen ing, balance, gait training, safety and function.C ontinue fall precaution s.Monitor for safety. Neuritis o f right ulnar nerve 5370282210 8359578 G56.21 Will have OT get pt padding for right elbow.Tx as needed. [id number] STEPHY TRAVIS TANGELA [address] [place] [phone] 07/06/2021 14:43:56 07/08/2021 14:31:46 Hemorrhoids 92114112 K64.9 soft not engorged, flat no bleeding Falls 167778124 R29.6 PT OT eval and treatfall precaution sfrequent safety checks [id number] STEPHY TRAVIS [address] [facility] [address] [place] [address] 08/27/2021 12:05:50 09/01/2021 15:16:16 Essential hypertension 11698613 I10 Good control onlosartan 50 mg qd,lasix 40 mg qd and 20 mg afternoon, spironolac tone 25 mg qdKCl 20 meq qd to prevent hypokalemi a.Monitor BP and labs Chronic ki dney disease stage 3A 037769414 N18.31 At baseline.C ontinue to avoid nephrotoxi c meds as able.Monit or labs.Renal consult prn. Edema of l ower extremity 471346967 R60.0 lasix 40 mg am, 20 mg afternoonE levate as much as able.compr ession stockingsM onitor. Neuritis o f right ulnar nerve 7560922831 5208667 G56.21 Will have OT get pt padding for right elbow.Tx as needed. Anxiety 85397591 F41.1 Monitor mood.Psych consult prn. Asthma 155267401 J45.30 No current sxs.singul air 10 mg qdalbutero l MDI 2 puffs q 4 hrs prn.Monito r resp. status Chronic ob structive pulmonary disease 07683582 J41.1 As above. Chronic pain 65875646 G8 9.29 tramadol 50 mg q12hr prngabapen tin 800 mg qid Diabetes mellitus 411415 09 E11.42 Good control on victoza 1.8 mg qd,lantus 24U qd,metform in 1000 mg BID and SSI.Monito r accuchecks QID. Gout 93928989 M10.09 allopurino l 300 mg qdcolchici ne 0.6 mg qd.Monitor sxs. Hyperlipidemia 10418514 E78.49 atorvastat in 20 mg qd.Monitor labs as outpt. Osteoarthritis 145520894 M15.0 With chronic pain.CaD 600/400 bidContinu e meds and rehab as above. SARS-CoV-2 254695790 U07 .1 02/28 covid positive-r ecovered by dateencour age fluid intakeivf for anorexiaco nsider decadron for anorexia [id number] MD GENARO Joyce [address] [place] [address] [place] [address] 10/13/2021 07:44:45 10/15/2021 12:38:49 Asthenia 80803371 R53.1 PT/OT/CLINICAL APPEALS AUDITOR prnphysiat ry prnwill monitor and support as needed Chronic pain 63756485 G8 9.29 physiatry prngabapen tin 800 mg [id number] 650 mg q6h prntramado l 50 mg q12h prnwill monitor Mixed anxi ety and depressive disorder 859814270 F41.8 clonazepam 0.5 mg q12h prn (14 day trial through 10/19/21)wi ll monitorHDB H prn (Patient has declined meds for depression in past.) Diabetes mellitus 940399 09 E11.42 Lantus 24U at hsinsulin aspart per sliding scalemetfo rmin 1000 mg bidVictoza 1.8 mg SC dailywill monitor Essential hypertension 47086530 I10 furosemide 40 mg daily in morning and 20 mg in afternoonl osartan 50 mg dailyspiro nolactone 25 mg dailywill monitor Gout 08355229 M10.09 allopurino l 300 mg dailycolch icine 0.6 mg dailywill monitor Hyperlipidemia 02149318 E78.49 atorvastat in 20 mg dailywill monitor Chronic ob structive pulmonary disease 29069047 J41.0 albuterol HFA: 2 puffs q4h prnmontelu kast 10 mg dailywill monitor Peripheral edema 2580127 00 R60.0 furosemide 40 mg in morning and 20 mg in afternoons pironolact one 25 mg dailywill monitor [id number] STEPHY TRAVIS [address] [place] [address] [place] [address] 11/25/2021 14:31:15 12/01/2021 16:03:01 Cellulitis of foot 963153137 L03.119 monitor for improvment keflex 500 mg bid to 7 days [id number] JAREK DONOHUE, STEPHY [facility] TANGEL[facility] [address] [place] [phone] 5 11/30/2021 12:44:52 12/02/2021 09:37:38 SARS-CoV-2 198715081 U07.1 11/28 covid positiveen courage fluid intakeivf for anorexiaco nsider decadron for sobsend to ED for decompensa tion Cellulitis of foot 15720 6007 L03.119 monitor for improvment keflex 500 mg bid to 7 days [id number] JAREK DONOHUE, STEPHY [address] [address] 12/02/2021 13:30:19 12/04/2021 15:05:52 SARS-CoV-2 992437159 U07.1 11/28 covid positiveen courage fluid intakeivf for anorexiaco nsider decadron for sobsend to ED for decompensa tion Cellulitis of foot 41892 6007 L03.119 monitor for improvment -recovered keflex 500 mg bid to 7 daysvascul ar appt as now her feet are cool and purple [id number] JAREK DONOHUE NP [address] [address] 12/03/2021 13:12:39 12/08/2021 14:54:41 SARS-CoV-2 795284960 U07.1 11/28 covid positiveen courage fluid intakeivf for anorexiaco nsider decadron for sobsend to ED for decompensa tion Cellulitis of foot 07593 6007 L03.119 monitor for improvment -recovered cellulitis keflex 500 mg bid to 7 daysvascul ar appt as now her feet are cool and purple [id number] JAREK DONOHUE, STEPHY [address] [address] 12/04/2021 14:01:40 12/08/2021 15:20:41 Cellulitis of foot 529700525 L03.119 monitor for improvment -recovered cellulitis keflex 500 mg bid to 7 daysvascul ar appt as now her feet are still slightly dusky Edema of l ower extremity 822565201 R60.0 lasix 40 mg am, 20 mg afternoonE levate as much as able.compr ession stockingsM onitor. SARS-CoV-2 010684443 U07 .1 11/28 covid positiveen courage fluid intakeivf for anorexiaco nsider decadron for sobsend to ED for decompensa tion [id number] JAREK DONOHUE NP [address] [address] 5 12/07/2021 13:15:52 12/10/2021 15:09:54 SARS-CoV-2 489779001 U07.1 11/28 covid positiveen courage fluid intakeivf for anorexiaco nsider decadron for sobsend to ED for decompensa tion Edema of l ower extremity 412256577 R60.0 lasix 40 mg am, 20 mg afternoonE levate as much as able.compr ession stockingsM onitor. [id number] JAREK DONOHUE NP [address] [address] 12/09/2021 13:10:43 12/11/2021 15:45:06 Peripheral vascular disease 559626113 I73.9 vascular appt 12/10 SARS-CoV-2 892948065 U07 .1 11/28 covid positive-a symptomati c, recovered by dateencour age fluid intakeivf for anorexiaco nsider decadron for sobsend to ED for decompensa tion [id number] JAREK DONOHUE NP [address] [address] 01/18/2022 13:22:44 01/20/2022 20:31:17 Falls 999655452 R29.6 PT OT eval and treatfall precaution sfrequent safety checks Pain of left wrist 78384 19373 28176 M25.532 tylenol prnice-kaitlin vate prnxray of left wrist [id number] Jazmin Orozco MD [address] [address] 5 01/29/2022 06:23:17 02/02/2022 15:38:51 Chronic obstructive pulmonary disease 52921786 J41.0 albuterol HFA: 2 puffs q4h prnmontelu kast 10 mg dailywill monitor Diabetes mellitus 466939 09 E11.42 Lantus 24U at hsinsulin aspart per sliding scalemetfo rmin 1000 mg bidVictoza 1.8 mg SC dailywill monitor Essential hypertension 81912253 I10 furosemide 40 mg daily in morning and 20 mg in afternoonl osartan 50 mg dailyspiro nolactone 25 mg dailywill monitor Gout 90774556 M10.09 allopurino l 300 mg dailycolch icine 0.6 mg dailywill monitor SARS-CoV-2 512517612 U07 .1 tested positive 11/28/21ha d asymptomat ic coursereco veredwill continue to monitor Chronic pain 39277415 G8 9.29 physiatry prngabapen tin 800 mg t9vIMMB 650 mg q6h prntramado l 50 mg at hswill monitor Mixed anxi ety and depressive disorder 321763861 F41.8 clonazepam 0.5 mg at hswill monitorHDB H prn (Patient has declined meds for depression in past.) Hyperlipidemia 89525260 E78.49 atorvastat in 20 mg dailywill monitor [id number] STEPHY TRAVIS [address] [address] 03/01/2022 14:00:55 03/03/2022 09:51:32 Edema of lower extremity 733528106 R60.0 lasix 40 mg am, 40 mg afternoonE levate as much as able.compr ession stockingsM onitor. Chronic pain 98597048 G8 9.29 tramadol 50 mg q12hr prngabapen tin 800 mg qid Muscle weakness 27217993 M62.81 Very deconditio john againNeeds PT/OT as above.Cont inue fall precaution s.Monitor for safety. Anxiety 08475319 F41.1 Monitor mood.Psych consult prn. [id number] JAREK DONOHUE NP [address] [address] 03/15/2022 10:51:50 03/17/2022 14:55:23 Chronic pain 41247680 G89.29 tramadol 50 mg q12hr prngabapen tin 800 mg qidxray hips and tailbone [id number] JAREK DONOHUE NP [address] [address] 03/17/2022 14:08:44 03/23/2022 09:31:25 Chronic pain 17509921 G89.29 tramadol 50 mg q12hr prngabapen tin 800 mg qidxray hips and tailbone-- all negative Diabetes mellitus 390396 09 E11.42 victoza 1.8 mg qd,lantus 24U qd, increase to 25unitsmet formin 1000 mg BID and SSI.Monito r accuchecks QID. [id number] JAREK DONOHUE NP [address] [address] 03/25/2022 12:12:48 03/29/2022 16:21:44 Chronic obstructive pulmonary disease 06996641 J41.0 albuterol HFA: 2 puffs q4h prnmontelu kast 10 mg dailywill monitor Diabetes mellitus 783720 09 E11.42 Lantus 25U at hsinsulin aspart per sliding scalemetfo rmin 1000 mg bidVictoza 1.8 mg SC dailywill monitor Essential hypertension 67760392 I10 furosemide 40 mg daily in morning and 20 mg in afternoonl osartan 50 mg dailyspiro nolactone 25 mg dailywill monitor Gout 71673023 M10.09 allopurino l 300 mg dailycolch icine 0.6 mg dailywill monitor SARS-CoV-2 848912416 U07 .1 tested positive 11/28/21-r ecovered by datecandy hardy coursereco krunal continue to monitor Chronic pain 47789159 G8 9.29 physiatry prngabapen tin 800 mg i8aFLAT 650 mg q6h prntramado l 50 mg at hswill monitor Mixed anxi ety and depressive disorder 315066468 F41.8 clonazepam 0.5 mg at hswill monitorHDB H prn (Patient has declined meds for depression in past.) Hyperlipidemia 42471471 E78.49 atorvastat in 20 mg dailywill monitor [id number] JAREK DONOHUE NP [address] [address] 04/12/2022 10:48:15 04/14/2022 13:56:56 Chronic pain 23284011 G89.29 physiatry prngabapen tin 800 mg i6zAXAY 650 mg q6h prntramado l 50 mg at q8hr amd q12hr prnwill monitor Falls 531922105 R29.6 PT OT eval and treatfall precaution sfrequent safety checks Depressive disorder 3548 9007 F32.A stop zoloftstar t lexapro 5 mg daily [id number] JAREK DONOHUE NP [facility] [address] [place] [address] 05/19/2022 13:57:34 05/21/2022 15:29:23 Edema of lower extremity 503496405 R60.0 lasix 40 mg amElevate as much as able.compr ession stockingsM onitor. Pain in coccyx 41356888 M53.3 monitor skin for potential breakdowns kin barrier [id number] Jazmin Orozco MD [address] [place] [address] 05/26/2022 08:55:13 06/02/2022 11:46:37 Chronic obstructive pulmonary disease 04305163 J41.0 albuterol HFA: 2 puffs q4h prnmontelu kast 10 mg dailywill monitor Chronic pain 91932618 G8 9.29 physiatry prngabapen tin 800 mg v8lDEDV 650 mg q6h prntramado l 50 mg q8h and q12 hr prn - consider taperwill monitor Diabetes mellitus 948440 09 E11.42 Lantus 25U at hsinsulin aspart per sliding scalemetfo rmin 1000 mg bidVictoza 1.8 mg SC dailywill monitor Essential hypertension 47790419 I10 furosemide 40 mg dailylosar fuller 50 mg dailyspiro nolactone 25 mg dailywill monitor Gout 67015638 M10.09 allopurino l 300 mg dailycolch icine 0.6 mg dailywill monitor Mixed anxi ety and depressive disorder 701915228 F41.8 clonazepam 0.5 mg at hsescitalo pram 5 mg dailywill monitor Hyperlipidemia 26963319 E78.49 atorvastat in 20 mg dailywill monitor [id number] JAREK DONOHUE NP [facility] [address] [place] [address] [place] [address] 05/31/2022 13:07:57 06/08/2022 12:40:34 Chronic kidney disease stage 3A 050213291 N18.31 worsening due to meds and decreased po intakeD5 1/2 NS iv 50ml/hr for 3 ltrsBMP WedContinu e to avoid nephrotoxi c meds as able.Monit or labs.Renal consult prn. Lamar Pickett NP GENARO TANGELA [address] [place] [address] 06/05/2022 10:47:36 06/08/2022 13:23:41 Chronic kidney disease stage 3A 328325887 N18.31 recent hospitaliz ation for CKD see AKIsee above AKIContinu e to avoid nephrotoxi c meds as able, see aboveMonit or labs.Renal consult 1-[address] Monreal Chronic ob structive pulmonary disease 59159234 J41.0 albuterol HFA: 2 puffs q4h prnmontelu kast 10 mg dailywill monitor Chronic pain 70940983 G8 9.29 physiatry prngabapen tin 800 mg q6iDDLC 650 mg q6h prntramado l 50 mg q8h and q12 hr prn - consider taperwill monitor Diabetes mellitus 783622 09 E11.42 Lantus 25U at hsinsulin aspart per sliding scaledc in hospital for TISHA metformin 1000 mg bidVictoza 1.8 mg SC dailywill monitor Essential hypertension 96234247 I10 hold furosemide 40 mg daily until 06/11dc losartan 50 mg dailywill monitor bpbp low stable currently Gout 07635155 M10.09 allopurino l decreased to 50 mg daily on Tuesday and co lchicine 0.6 mg daily, hold for diarrheaur ic acid level on 06/07will monitor Mixed anxi ety and depressive disorder 690217910 F41.8 clonazepam 0.5 mg at hsescitalo pram 5 mg dailywill monitor Hyperlipidemia 60034384 E78.49 atorvastat in 20 mg dailywill monitor Acute kidney injury 1466 9001 N17.9 TISHA with hospitaliz ation multifacto rial with dehydratio n, lasix, losartan and diarrhea per nephrology losartan dc'd, lasix on hold until 06/11, metformin dc'd, allopurino l adjusted from 300 mg to 50 mg on mondays and f u with nephrology Dr. Monreal in 1-2 weekslabs on 06/07/22 ordered Hyperkalemia 75524104 E8 7.5 hyperkalem ia resolved and k was 6.4 in [facility] supplement discontinu ed in [facility] on 06/07, last k 4.6 on 06/04346 JAREK DONOHUE NP [address] [place] [address] 06/07/2022 14:23:16 06/10/2022 15:07:24 Acute kidney injury 29278176 N17.9 TISHA with hospitaliz ation multifacto rial with dehydratio n, lasix, losartan and diarrhea per nephrology losartan dc'd, lasix on hold until 06/11, metformin dc'd, allopurino l adjusted from 300 mg to 50 mg on mondays and f u with nephrology Dr. Monreal in 1-2 weekslabs on 06/07/22 ordered Chronic ki dney disease stage 3A 475874181 N18.31 recent hospitaliz ation for CKD see AKIsee above AKIContinu e to avoid nephrotoxi c meds as able, see aboveMonit or labs.Renal consult 1-[address] Monreal Hyperkalemia 81246373 E8 7.5 hyperkalem ia resolved and k was 6.4 in [facility] supplement discontinu ed in [facility] on 06/07, last k 4.6 on 06/04 Chronic ob structive pulmonary disease 37808698 J41.0 albuterol HFA: 2 puffs q4h prnmontelu kast 10 mg dailywill monitor Chronic pain 34848501 G8 9.29 gabapentin 800 mg m4sOTSB 650 mg q6h prntramado l 50 mg x5urigbb monitor Diabetes mellitus 638282 09 E11.42 Lantus 25U at hsinsulin aspart per sliding scaledc in hospital for TISHA metformin 1000 mg bidVictoza 1.8 mg SC dailywill monitor Essential hypertension 77648958 I10 hold furosemide 40 mg daily until 06/11dc losartan 50 mg dailywill monitor bpbp low stable currently Gout 97637672 M10.09 allopurino l decreased to 50 mg daily on Tuesday and co lchicine 0.6 mg daily, hold for diarrheaur ic acid level on 06/07will monitor Mixed anxi ety and depressive disorder 331188756 F41.8 clonazepam 0.5 mg at hsescitalo pram 5 mg dailywill monitor Hyperlipidemia 27964245 E78.49 atorvastat in 20 mg dailywill monitor [id number] STEPHY TRAVIS [address] [place] [address] 5 06/11/2022 13:52:33 06/15/2022 15:23:12 Acute kidney injury 56455350 N17.9 TISHA with hospitaliz ation multifacto rial with dehydratio n, lasix, losartan and diarrhea per nephrology losartan dc'd, lasix on hold until 06/11, metformin dc'd, allopurino l adjusted from 300 mg to 50 mg on mondays and f u with nephrology Dr. Monreal in 1-2 weekslabs on 06/07/22 ordered Edema of l ower extremity 181845701 R60.0 lasix 40 mg amElevate as much as able.compr ession stockingsM onitor. Chronic ki dney disease stage 3A 645250666 N18.31 recent hospitaliz ation for CKD see AKIsee above AKIContinu e to avoid nephrotoxi c meds as able, see aboveMonit or labs.Renal consult 1-[address] Monreal [id number] STEPHY TRAVIS [address] [place] [address] 5 06/16/2022 12:53:11 06/18/2022 13:10:44 Normal grief reaction 137973455 F43.20 x- sunday 06/18she has prn clonazapam Chronic ki dney disease stage 3A 971309388 N18.31 recent hospitaliz ation for CKD see AKIsee above AKIContinu e to avoid nephrotoxi c meds as able, see aboveMonit or labs.Renal consult 1-[address] Monreal [id number] JAREK DONOHUE NP [facility] [address] [place] [address] 5 06/23/2022 13:18:38 06/30/2022 14:46:10 Chronic obstructive pulmonary disease 70945694 J41.0 albuterol HFA: 2 puffs q4h prnmontelu kast 10 mg dailywill monitor Depressive disorder 3548 9007 F32.A lexapro 5 mg daily-incr ease to 10 mgpsych prn Pain of ri ght hip joint 0143414949 26133 M25.551 No acute injury found.jg pentin 800 mg QIDtramado l 50 mg qd.Continu e PT/OT strengthen ing, balance, gait training, safety and function.M onitor sxs.ortho consult for possible injection [id number] JAREK DONOHUE NP [address] [address] 07/20/2022 15:19:14 07/28/2022 16:24:47 Acute kidney injury 79735119 N17.9 TISHA with hospitaliz ation multifacto rial with dehydratio n, lasix, losartan and diarrhea per nephrology losartan dc'd, lasix 40 mg daily, metformin dc'd, allopurino l adjusted from 300 mg to 50 mg on mondays and f u with nephrology Dr. Monreal in 1-2 weekslabs monitored Chronic ki dney disease stage 3A 164335232 N18.31 recent hospitaliz ation for CKD see AKIsee above AKIContinu e to avoid nephrotoxi c meds as able, see aboveMonit or labs.Renal consult Dr. Monreal Hyperkalemia 77066086 E8 7.5 hyperkalem ia resolved and k was 6.4 in [facility] supplement discontinu ed in [facility]itor labs Chronic ob structive pulmonary disease 85778038 J41.0 albuterol HFA: 2 puffs q4h prnmontelu kast 10 mg dailywill monitor Chronic pain 17385782 G8 9.29 gabapentin 800 mg [id number] 650 mg q6h prntramado l 50 mg q8ckxkrb monitor Diabetes mellitus 181847 09 E11.42 Lantus 25U at hsinsulin aspart per sliding scaleVicto za 1.8 mg SC dailywill monitor Essential hypertension 18479128 I10 furosemide 40 mg dailywill monitor bpbp low stable currently Gout 98334275 M10.09 allopurino l decreased to 50 mg daily on Tuesday and co lchicine 0.6 mg daily, hold for diarrheaur ic acid levelwill monitor Mixed anxi ety and depressive disorder 946550280 F41.8 clonazepam 0.5 mg at hsescitalo pram 10 mg dailywill monitor Hyperlipidemia 19353881 E78.49 atorvastat in 20 mg dailywill monitor [id number] JAREK DONOHUE NP [address] [address] 08/16/2022 12:38:40 08/19/2022 14:16:04 Anxiety 75999392 F41.1 lexparo 10 mg dailyclona zepam 0.5 mg hsMonitor mood.Psych consult prn. Chronic ob structive pulmonary disease 63576124 J41.0 albuterol HFA: 2 puffs q4h prnmontelu kast 10 mg dailywill monitor Falls 089443010 R29.6 PT OT eval and treatfall precaution sfrequent safety checks [id number] Tami Koroma MD [address] [address] 09/20/2022 19:12:55 10/05/2022 13:35:55 Anxiety 28512489 F41.1 Mood stable.Con tinue escitalopr am 10 mg qd and clonazepam 0.5 mg qhs.Monito r mood.Psych following. Chronic ob structive pulmonary disease 87567040 J41.0 No current sxs.Contin ue singulair 10 mg qd and albuterol MDI 2 puffs q 4 hrs prn.Monito r resp. status Falls [id number] R29.6 Brody dependent. Continue fall precaution s.Monitor for safety. Ingrowing nail 711552218 L60.0 Not improving with Keflex, will change to doxy 100 mg BID x 7 d.Monitor sxs.Wound consult Chronic jonathan dney disease stage 3A 089264081 N18.31 Was almost back to baseline at last check in 05/2022.Con tinue to avoid nephrotoxi c meds as able.Monit or labs, will check this wk.Renal f/u as planned. Chronic pain 59304313 G8 9.29 Continue gabapentin 800 mg QID, tramadol 50 mg q 6 hrs prn and APAP 650 mg q 6 hrs prnMonitor sxs. Diabetes mellitus 866032 09 E11.42 Good control on victoza 1.8 mg qd, lantus 24U qd, and SSI. Monitor accuchecks TID. Essential hypertension 16154103 I10 Good control on furosemide 40 mg qdMonitor BP and labs. Chronic constipation 236 348409 K59.09 Will add miralax 17 gms qd and continue metamucil 1 tsp qd and miralax BID prn.Monito r bowel function [id number] STEPHY TRAVIS TANGELA [address] [place] [address] rd [place] [address] 11/12/2022 10:43:31 11/16/2022 19:30:19 Anxiety 67177749 F41.1 Mood stable.esc italopram 10 mg qdclonazep am 0.5 mg qhs.Monito r mood.Psych following. Chronic ob structive pulmonary disease 07448357 J41.0 No current sxs.singul air 10 mg qdalbutero l MDI 2 puffs q 4 hrs prn.Monito r resp. status Falls 211260325 R29.6 Brody dependent. Continue fall precaution s.Monitor for safety. Chronic jonathan dney disease stage 3A 749864566 N18.31 Was almost back to baseline at last check in 05/2022.Con tinue to avoid nephrotoxi c meds as able.Monit or labs, will check this wk.Renal f/u as planned. Chronic pain 12871109 G8 9.29 gabapentin 800 mg QID,tramad ol 50 mg at 1400 decreased from bidAPAP 650 mg q 6 hrs prnMonitor sxs. Diabetes mellitus 291253 09 E11.42 Good control on victoza 1.8 mg qd,lantus 25 Units qd, and SSI.Monito r accuchecks TID. Essential hypertension 66616617 I10 Good control on furosemide 40 mg qdMonitor BP and labs. Chronic constipation 236 478758 K59.09 Will add miralax 17 gms qd and continue metamucil 1 tsp qd and miralax BID prn.Monito r bowel function [id number] STEPHY TRAVIS TANGELA [address] [place] [address] 12/31/2022 15:41:28 01/03/2023 15:15:47 Anxiety 27587070 F41.1 Mood stable.esc italopram 10 mg qdclonazep am 0.5 mg qhs.Monito r mood.Psych following. Chronic ob structive pulmonary disease 19965829 J41.0 No current sxs.singul air 10 mg qdalbutero l MDI 2 puffs q 4 hrs prn.Monito r resp. status Falls 350265431 R29.6 Brody dependent. Continue fall precaution s.Monitor for safety. Chronic ki dney disease stage 3A 710512612 N18.31 Was almost back to baseline at last check in 05/2022.Con tinue to avoid nephrotoxi c meds as able.Monit or labs, will check this wk.Renal f/u as planned. Chronic pain 44605378 G8 9.29 gabapentin 800 mg QID,tramad ol 50 mg at 1400 decreased from bidAPAP 650 mg q 6 hrs prnMonitor sxs. Diabetes mellitus 253204 09 E11.42 Good control on victoza 1.8 mg qd,lantus 25 Units qd, and SSI.Monito r accuchecks TID. Essential hypertension 02016034 I10 Good control on furosemide 40 mg qdMonitor BP and labs. Chronic constipation 236 153118 K59.09 miralax 17 gms qdmetamuci l 1 tsp qdmiralax BID prn.Monito r bowel function [id number] MD GENARO Panda [address] [facility] [place] [address] 01/20/2023 18:42:19 02/01/2023 09:01:35 Anxiety 22398403 F41.1 Mood stable.Con tinue escitalopr am 10 mg qd and clonazepam 0.5 mg qhs.Monito r mood.Psych following. Chronic ob structive pulmonary disease 72363140 J41.0 No current sxs.Contin ue singulair 10 mg qd and albuterol MDI 2 puffs q 4 hrs prn.Monito r resp. status Falls 458331886 R29.6 Brody dependent. Continue fall precaution s.Monitor for safety. Chronic ki dney disease stage 3A 248211456 N18.31 At baseline at last check in 11/2022.Co ntinue to avoid nephrotoxi c meds as able.Renal f/u as planned.Connelly s labs ordered monthly, but not done since 12/08/22, will change to every 3 months as she has been stable. Chronic pain 22733297 G8 9.29 With continued neuropathy pain, already on max dose of gabapentin .Continue gabapentin 800 mg QID, tramadol 50 mg TID and APAP 650 mg q 6 hrs prnMonitor sxs. Diabetes mellitus 063588 09 E11.42 FIngerstic ks variable. No HgA1C in the past yr.Continu e victoza 1.8 mg qd, lantus 25U qd, and SSI.Monito r accuchecks TID, will order HgA1C for next tuesday. Essential hypertension 21982611 I10 Remains in good control on furosemide 40 mg qdMonitor BP and labs. Chronic constipation 236 487559 K59.09 Continue metamucil 1 tsp qd and miralax 17 gms BID prn.Monito r bowel function Asthenia 53859583 R53.81 Encouraged pt to get up to activities again. Reminded her that getting up helps her feel better.[facility] itor [id number] SARAHI MCFARLAND [address] [place] [address] 03/10/2023 08:15:48 03/14/2023 15:52:57 Abdominal pain 22856573 R10.9 diffuse abdominal pain , reports hx of hernia( not appreciate d on exam)5/10 when lying 7/10 when sitting upwaxes and wane -non radiatinga ggravated when having a bowel moving or sitting up.will obtain abd U/S-cbc- bmp-amylas e and lipaseAfte r exam patient is noted sitting up in bed eating breakfast. Hemorrhoids 55297765 K64 .9 patient reports hx internal and externalre ports flare up, she tells me that suppositor ies does not stay in.Nursing reports that she complains but will refuse treatment. plan of care discussed with nursing. [id number] SARAHI MCFARLAND [address] [place] [address] [place] [address] 04/06/2023 08:03:00 04/07/2023 19:40:55 Abdominal pain 40758464 R10.9 03/31: Updated by SW that pt reports abdominal pain during care conference . diffuse abdominal pain , reports hx of hernia( not appreciate d on exam): recent ultrasound see above- previous US ordered on 03/11 not completed ? unsure if ordered by nursing.re ferral to GI at [facility] awaiting appointmen t confirmati on.waxes and wane -non radiatinga ggravated when having a bowel moving or sitting up.will get updated labs for 04/11/23 Chronic pain 28324456 G8 9.29 With continued neuropathy pain, already on max dose of gabapentin .Continue gabapentin 800 mg QID, tramadol 50 mg TID and APAP 650 mg q 6 hrs prnMonitor sxs. Asthma 810845495 J45.30 singulair 10 mg qdalbutero l MDI 2 puffs q 4 hrs prn.Monito r resp. status Depressive disorder 3548 9007 F32.A lexapro 5 mg daily-incr ease to 10 mgpsych prn Diabetes mellitus 858362 09 E11.42 Fingerstic ks variable. No HgA1C in the past yr.lantus 25U qd, and SSI.Monito r accuchecks TID, will order HgA1C for next tuesday.Monty toza changed to trulicity per insurance will not cover victoza. Essential hypertension 54835603 I10 Remains in good control on furosemide 40 mg qdMonitor BP and labs. Hyperlipidemia 71083432 E78.49 atorvastat in 20 mg dailywill monitor [id number] SARAHI MCFARLAND [address] [place] [address] [place] [address] 07/01/2023 12:39:23 07/05/2023 11:14:24 Abdominal pain 66360677 R10.9 2/8: Updated by SW that pt reports abdominal pain during care conference . diffuse abdominal pain , reports hx of hernia( not appreciate d on exam): recent ultrasound see above- previous US ordered on 03/11 not completed ? unsure if ordered by nursing.re ferral to GI at [facility] awaiting appointmen t confirmati on.waxes and wane -non radiatinga ggravated when having a bowel moving or sitting up.will get updated labs for 04/11/23 History of hernia repair 4382618289 9109 Z98.890 07/01/23:s/ p repair of incarcerat ed umbilical hernia w/o obstructio n and unilateral inguinal with mesh.post op follow up on 07/11/[address] [place] [address] outside [facility] [place] inguinal starting 07/04/23. Do not remove or get wet dressing wet.VS qshiftNurs ing to update providers with any acute changes.LA BS ORD FOR 07/04/23 PLACED IN [facility] [id number] SARAHI MCFARLAND [address] [address] 07/04/2023 15:25:43 07/06/2023 09:53:33 History of hernia repair 8171858800 9109 Z98.890 07/01/23:s/ p repair of incarcerat ed umbilical hernia w/o obstructio n and unilateral inguinal with mesh.post op follow up on 07/11/[address] [place] [address] outside [facility] [place] inguinal starting 07/04/23. Do not remove or get wet dressing wet.VS qshift - have been stable.Lamar sing to update providers with any acute changes.LA BS ORD FOR 07/04/23 PLACED IN [facility]- not completed reordered for 07/04 [id number] SARAHI MCFARLAND [address] [address] 07/11/2023 08:53:35 07/14/2023 13:06:16 History of hernia repair 1381996108 9109 Z98.890 07/01/23:s/ p repair of incarcerat ed umbilical hernia w/o obstructio n and unilateral inguinal with mesh.post op follow up on 07/11/[address] [place] [address] outside [facility] [place]inal starting 07/04/23. Do not remove or get wet dressing wet.VS qshift - have been stable.Lamar sing to update providers with any acute changesPat ient has follow up appt today with surgery. Pain of right calf 53646 41100 701967 M79.661 reports pain with palpation and flexionuna ble to palpate pedal pulse but right foot is warm, no swelling +CMSwill get an ultrasound to rule out DVT. [id number] SARAHI MCFARLAND [address] [address] 07/13/2023 11:25:16 07/15/2023 08:46:50 History of hernia repair 2746671826 9109 Z98.890 07/01/23:s/ p repair of incarcerat ed umbilical hernia w/o obstructio n and unilateral inguinal with mesh.post op follow up on 07/11/[address] [place] [address] outside [facility] [place] starting 07/04/23. Do not remove or get wet dressing wet.VS qshift - have been stable.Lamar sing to update providers with any acute changes. Pain of right calf 86337 15200 120855 M79.661 reports pain with palpation and flexionuna ble to palpate pedal pulse but right foot is warm, no swelling +CMSultras ound to rule out DVT pending. Diabetes mellitus 633360 09 E11.42 BGLs 300-400swi ll adjust SSC and increase lantus from 25 units to 30 [facility].75 mg weekly-con tinue FS TID and HS [id number] SARAHI MCFARLAND [address] [address] 07/21/2023 09:47:32 07/26/2023 11:58:03 History of hernia repair 9071119739 9109 Z98.890 07/01/23:s/ p repair of incarcerat ed umbilical hernia w/o obstructio n and unilateral inguinal with mesh. et.continu e to be stable post op.Nursing to update providers with any acute changes. Pain of right calf 16280 34685 034322 M79.661 ultrasound negativept encouraged OOB for postional changes and increase circulatio ncontinue tylenol 975 mg TID and prn tramadol Diabetes mellitus 867081 E11.42 BGLs have improved from 400 but continues to be high 200- 300swill adjust SSC and increase lantus from 30 units to 35 units at hscontinue trulicity 0.75 mg weekly-con tinue FS TID and HS [id number] ERIKA OLSON [address] [address] 07/25/2023 12:18:50 08/01/2023 14:06:31 History of hernia repair 5638717717 9109 Z98.890 07/24: continue to have some discomfort at incisional site, we discussed this is normal and can last for a few weeks or even months. There is no redness, swelling or warmth.s/p repair of incarcerat ed umbilical hernia w/o obstructio n and unilateral inguinal with mesh. et.continu e to be stable post op.Nursing to update providers with any acute changes. Diabetes mellitus E11.42 BGLS appeared to have improved for a few days. Morning BGL better but afternoon and evening continues to be high, nursing reports that she eats a lot of candy bought in by visitor. will educated on next visit.will adjust lispro SSC and revisit BGL later this week.connie nue trulicity 0.75 mg weekly-con tinue FS TID and HS [id number] ERIKA OLSON [address] [address] 08/02/2023 10:29:45 08/05/2023 08:38:11 History of hernia repair 1377377849 9109 Z98.890 s/p repair of incarcerat ed umbilical hernia w/o obstructio n and unilateral inguinal with mesh. et.continu e to be stable post op.surgica l incisions now healedNurs ing to update providers with any acute changes. Diabetes mellitus 7268802109 10 E11.42 blood sugars have improved but continue to have bgl in the 300s.-lant us increased to 40 units hscontinue Lispro SSCcontinu e trulicity 0.75 mg weekly-con tinue FS TID and HS Asthma 791594979 J45.30 breathing has been easy and unlabored. singulair 10 mg qdalbutero l MDI 2 puffs q 4 hrs prn.Monito r resp. status Chronic ki dney disease stage 3A 817526840 N18.31 5 last Bun 38-Cr 1.6continu e to avoid nephrotoxi ns Chronic ob structive pulmonary disease 93520422 J41.0 Continue singulair 10 mg qd and albuterol MDI 2 puffs q 4 hrs prn. Depressive disorder 8748 9007 F32.A lexapro 5 mg daily-incr ease to 10 mgpsych prn [id number] Tami Koroma MD [facility] [address] [place], [place] [address] 10/07/2023 17:24:57 11/28/2023 13:46:23 Diabetes mellitus 34934490 E11.42 HgA1C 7.8 in 06/2023.Sug ars remain too high most of the jose, often>300C ontinue victoza 1.8 mg qd, lantus 25U qd, and SSI.Monito r accuchecks TID.Consid er increase of lantus. Asthenia 09316027 R53.81 Staff continues to encourage pt to get up to activities .Tonight I reminded her that getting up helps her feel better.Mon itor Anxiety 04263497 F41.1 Mood down tonightCon tinue escitalopr am 10 mg qd and clonazepam 0.5 mg qhs.Monito r mood.Psych following. Chronic ob structive pulmonary disease 81484285 J41.0 No current sxs.Contin ue singulair 10 mg qd and albuterol MDI 2 puffs q 4 hrs prn.Monito r resp. status Falls 339381062 R29.6 Continues to be brody dependent. Continue fall precaution s.Monitor for safety. Chronic ki dney disease stage 3A 807115254 N18.31 Last labs in 06/2023, stable.Con tinue to avoid nephrotoxi c meds as able.Renal f/u as planned.Co ntinue to monitor q 3 months. Chronic pain 97759513 G8 9.29 With continued neuropathy pain, already on max dose of gabapentin .Trouble sleeping due to pain.Will schedule tramadol 50 mg qhs and make prn dose 50 mg BID prn.Contin ue gabapentin 800 mg QID and APAP 650 mg q 6 hrs prnMonitor sxs. Essential hypertension 50779066 I10 Remains in good control on furosemide 40 mg qdMonitor BP and labs. Chronic constipation 236 908764 K59.09 Continue bowel meds as ordered.Mo nitor bowel function. [id number] SARAHI MCFARLAND [address] [address] 10/12/2023 10:09:52 10/14/2023 10:23:32 Depressive disorder 18469929 F32.A reports fatigue and low energy.see n by licensed clinical psychologist 10/09per psych recommenda tion will decrease clonazepam from 0.5 to 0.25 mg at bedtimecon tinue lexapro 10 mg daily [id number] SARAHI MCFARLAND [address] [address] 11/28/2023 08:41:33 11/29/2023 11:39:06 Diabetes mellitus 06790800 E11.42 FS wax and wane to low 300scontin ue Lispro SSCcontinu e trulicity 1.5 mg weekly-cailin tus 40 units hscontinue FS TID and HS Asthma 705330000 J45.30 breathing has been easy and unlabored. singulair 10 mg qdalbutero l MDI 2 puffs q 4 hrs prn.Monito r resp. status Chronic ki dney disease stage 3A 755539253 N18.31 continue to avoid nephrotoxi ns Chronic ob structive pulmonary disease 34232524 J41.0 Continue singulair 10 mg qd and albuterol MDI 2 puffs q 4 hrs prn. Depressive disorder 3548 9007 F32.A continue clonazepam from 0.25 mg at bedtimecon tinue lexapro 10 mg dailyMonit or mood for changes with behaviors. psych prn [id number] SARAHI MCFARLAND [address] [address] 01/12/2024 10:51:05 01/18/2024 12:03:17 Diabetes mellitus 81464889 E11.42 FS wax and wane mainly under 200s.connie nue Lispro SSCcontinu e trulicity 1.5 mg weekly-cailin tus 40 units hs - consider titratingc ontinue FS TID and HS Asthma 528278300 J45.30 breathing has been easy and unlabored. singulair 10 mg qdalbutero l MDI 2 puffs q 4 hrs prn.Monito r resp. status Chronic ki dney disease stage 3A 860783172 N18.31 continue to avoid nephrotoxi ns Chronic ob structive pulmonary disease 32972147 J41.0 Continue singulair 10 mg qd and albuterol MDI 2 puffs q 4 hrs prn. Depressive disorder 3548 9007 F32.A continue clonazepam from 0.25 mg at bedtimecon tinue lexapro 10 mg dailyMonit or mood for changes with behaviors. psych prn Anxiety 14931014 F41.1 Continue escitalopr am 10 mg qd and clonazepam 0.5 mg qhs. Chronic pain 99723704 G8 9.29 Continue gabapentin 800 mg QID, tramadol 50 mg TID and APAP 650 mg q 6 hrs prnMonitor sxs. Essential hypertension 52570800 I10 Remains in good control on furosemide 40 mg qdMonitor BP and labs. [id number] SARAHI MCFARLAND [address] [place] [address] 02/20/2024 15:10:23 02/21/2024 13:53:21 Bilateral lower leg edema 540932903 R60.0 trace amount;mos t likely dependent. patient rarely gets OOB.encour aged to elevated legs on pillowsden ies any discomfort , VSSdiscuss ed with nursing ,no need for diureticnu rsing to update provider with worsening sx. [id number] SARAHI MCFARLAND [address] [place] [address] 04/12/2024 13:49:48 04/13/2024 15:17:56 Abdominal pain 74685847 R10.9 discomfort associated with diarrheare ports burning with voidwill get UA with c/s.send stool r/o cdiffcheck labs CBC, BMP Itching of skin 05331819 0 L29.9 reports all over itchinessp er nursing no rash notedwill add hydroxyzin e 25 mg q6 prntriamci nolone 0.1 % cream BID to extremitie sstart claritin 10 mg dailycheck uric acid level for elevation due to hx of ckd to r/o cause of itching. [id number] SARAHI MCFARLAND [address] [place] [address] 04/15/2024 09:05:37 04/26/2024 13:43:37 Urinary tract infectious disease 20677199 N39.0 UA + for nitrates, WBC and bloodstart ed on bactrim DS with probioticm onitor for retention or worsening sx. Chronic ki dney disease stage 3A 113146291 N18.31 Cr 1.7on gabapentin 800 mg QID decreased to 600 mg TIDlasix decreased from 40 mg daily to 20 mg QODcontinu e to avoid nephrotoxi nsextra fluids encouraged /elevate legs Gout 03892480 M10.09 uric acid level 7.4colchic ine 0.6 mg daily d/c'd changed to PRN for flare upsallopur inol 50 mg daily changed to 100mg QODrecheck uric acid level in 1 week [id number] CUONG JONES, LAURIE [address] [place] [address] 05/23/2024 13:10:15 05/25/2024 08:27:44 Nausea 285539738 R11.0 Pt has hx of hernia, repaired per patient.Po ssible recurrent hiatal hernia.Ginger st xray ordered with CBC, BMP.PRN zofran, and continue monitor. Malaise 716996714 R53.81 VSS, afebrile at this time.Upper abdominal discomfort with nausea but no vomiting.W ill check labs and Xray to r/o acute respirator y problem or recurrent hernia. Diabetes mellitus 997009 09 E11.42 FS stable, mainly under 200s.connie nue Lispro SSCcontinu e trulicity 1.5 mg weekly-cailin tus 40 units hs - consider titratingc ontinue FS TID and HS Asthma 221526544 J45.30 Stable.unl abored.Con tinuesingu lair 10 mg qdalbutero l MDI 2 puffs q 4 hrs prn.Monito r resp. status Chronic ob structive pulmonary disease 91933365 J41.0 Stable.Con tinue singulair 10 mg qd and albuterol MDI 2 puffs q 4 hrs prn. Essential hypertension 07455650 I10 Remains in good control on furosemide 40 mg qdContinue monitor BP and labs. [id number] CUONG JONSE CNP GENARO HONEYCUTT [address] [facility] [place] [address] 06/06/2024 10:33:51 06/12/2024 16:12:17 Nausea 998579771 R11.0 resolved. Diabetes mellitus 301092 09 E11.42 FS stable, mainly under 200s.A1c on 06/04 was 6.6continu e Lispro SSCcontinu e trulicity 1.5 mg weekly-cailin tus 40 units hs - consider titratingc ontinue FS TID and HS Asthma 752822979 J45.30 Stable.unl abored.Con tinuesingu lair 10 mg qdalbutero l MDI 2 puffs q 4 hrs prn.Monito r resp. status Chronic ob structive pulmonary disease 33855354 J41.0 Stable.Con tinue singulair 10 mg qd and albuterol MDI 2 puffs q 4 hrs prn. Essential hypertension 35866902 I10 Remains in good control on furosemide 40 mg qdContinue monitor BP and labs. Chronic ki dney disease stage 3A 085771213 N18.31 continue to avoid nephrotoxi ns Depressive disorder 1264 9007 F32.A continue clonazepam from 0.25 mg at bedtimecon tinue lexapro 10 mg dailyMonit or mood for changes with behaviors. psych prn Anxiety 51445728 F41.1 Continue escitalopr am 10 mg qd and clonazepam 0.5 mg qhs. Chronic pain 72138985 G8 9.29 Continue gabapentin 800 mg QID, tramadol 50 mg TID and APAP 650 mg q 6 hrs prnMonitor sxs. [id number] MD GENARO Arriola [address] [place] [address] [place] [address] 08/16/2024 09:37:58 08/20/2024 12:47:49 Cirrhosis of liver 68160176 K74.69 cirrosis with ascites noted on ULhx of etoh states in past would drink 1 bottle of kahlua per week cmp ordred to assess LFTsrefer to GI in place Acute back pain with sciatica 411753963 M54.41 right sided back painoften refuses OOBmild discomfort with flexion RLEx ray LS spine then therapy to eval Health Concerns Section Related Observation LastModified by Organization Detai ls LastModified Time None Recorded Concern Status LastModified by Organization Details LastModified Time None Recorded Advance Directives Directive Y: Payers Insurance Date Sequence Insurance Name Policy Number Policy Manuel Covered Member ID Manuel Member ID Guarantor Name 04/12/2024 1 [facility] - DOS PRIOR TO 2022 - DUAL ELIGIBLE (MEDICARE REPLACEMENT/ADV ANTAGE - HMO) Melissa Colon [id number] Melissa Colon 08/16/2024 2 [place] [facility] Melissa E Colon [id number] Melissa Colon 04/12/2024 1 [facility] - DOS ON OR AFTER 2022 - ONE CARE (MEDICARE REPLACEMENT/ADV ANTAGE - HMO) Melissa E Colon [id number] Melissa Colon 08/16/2024 1 [place] [employer] Melissa E Colon [id number] Melissa Colon Notes Date Note Type Note Provider Name and Address Organization Details Recorded Time 04/12/2024 text/html Melissa is a 78 yr [...] today but refused lunch. 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 Patient recent labs and UA results reviewed with plans or care discussed. UA noted +, stool negative for infection. SARAHI MCFARLAND [address], [address], [place], [address], [employer] 04/25/2024 23:11:49 05/23/2024 text/html Melissa is a [...] abdomen. Jayson abdominal pain with palpation. CUONG JONES CNP [address] [facility], [address], [place], [address], [facility] [employer] 05/23/2024 13:56:14 06/06/2024 text/html Melissa is a [...] n/v/d. Jayson abdominal pain or discomfort. CUONG JONES CNP [address] [facility], [address], [place], [address], [facility] [employer] 06/12/2024 14:05:08 08/16/2024 text/html Patient is an 79 yo female LTC resident seen for routine rounding. Patient with hx of cholelithiasis with episodic discomfort. UL ordered positive for hepatocellular disease, cirrhosis with moderate ascites, noted incidental 4.6 cm right kidney simple cyst. Today patient c/o low back pain radiating to right foot worse with movement, nursing stating patient refusing OOB Denis Andino MD [address] [place] [address], [address], [place], [address], [facility] 08/16/2024 09:54:00 OBGyn Episode No OBEpisode recorded.
[2024-09-04 08:10] LABS: Hematocrit 26.9 % (37.0-47.0); Hemoglobin 8.6 g/dl (12.0-16.0); Imm Gran Abs Auto 0.01 X10*3/uL (0.00-0.03); Imm Gran Pct Auto 0.2 % (0.0-0.4); Lymphocytes Absolute Auto 1.2 X10*3/uL (1.2-4.9); Mean Corpuscular HGB Conc 32.0 g/dl (31.0-35.0); Mean Corpuscular Hemoglobin 29.9 pg (27.0-33.0); Mean Corpuscular Volume 93.4 fL (80.0-98.0); NRBC Abs Auto 0.000 X10*3/uL (0.0-0.012); NRBC Pct Auto 0.0 /100WBC (0.0-0.2); Platelet Count 116 X10*3/uL (160-400); Red Blood Count 2.88 X10*6/uL (4.20-5.50); White Blood Count 4.7 X10*3/uL (4.8-10.8)
[2024-09-04 08:19] LABS: Hemoglobin A1C 106.8351 umol/L; Total Hemoglobin (HGBA1C) 2353.4521 umol/L
[2024-09-04 08:25] LABS: Alanine Aminotransferase 12 U/L (0-31); Albumin Level 2.4 g/dL (3.5-5.0); Alkaline Phosphatase 69 U/L (39-117); Anion Gap 11 (12-20); Aspartate Amino Transferase 26 U/L (5-31); Blood Urea Nitrogen 44 mg/dL (9-16); Calcium 7.8 mg/dL (8.4-10.2); Carbon Dioxide 24 mmol/L (22-29); Chloride 115 mmol/L (96-108); Estimated Glomerular Filt Rate 24; Potassium 4.4 mmol/L (3.3-5.1); Sodium 146 mmol/L (135-145); Total Protein 5.6 g/dL (6.5-8.0)
== END 2024-09-04 07:57 | disposition home or self-care (01) ==
LOC: HO.MMNH3L 07:56
PROVIDERS: Visit Provider Internal Medicine
DX: E11.42 Type 2 diabetes mellitus with diabetic polyneuropathy (principal); K70.9 Alcoholic liver disease, unspecified; N18.31 Chronic kidney disease, stage 3a
CPT/HCPCS: 36415; 80053; 83036; 85025

== ENCOUNTER 2024-09-24 06:15 | Outpatient (REF) | payer MEDICARE, MEDICAID, SELFPAY ==
[2024-09-24 06:19] LABS: MANUAL DIFF FLAG NO
[2024-09-24 07:06] LABS: Hematocrit 26.7 % (37.0-47.0); Hemoglobin 8.5 g/dl (12.0-16.0); Imm Gran Abs Auto 0.02 X10*3/uL (0.00-0.03); Imm Gran Pct Auto 0.4 % (0.0-0.4); Lymphocytes Absolute Auto 1.3 X10*3/uL (1.2-4.9); Mean Corpuscular HGB Conc 31.8 g/dl (31.0-35.0); Mean Corpuscular Hemoglobin 30.1 pg (27.0-33.0); Mean Corpuscular Volume 94.7 fL (80.0-98.0); NRBC Abs Auto 0.000 X10*3/uL (0.0-0.012); NRBC Pct Auto 0.0 /100WBC (0.0-0.2); Platelet Count 110 X10*3/uL (160-400); Red Blood Count 2.82 X10*6/uL (4.20-5.50); White Blood Count 5.4 X10*3/uL (4.8-10.8)
[2024-09-24 07:22] LABS: Alanine Aminotransferase 16 U/L (0-31); Albumin Level 2.4 g/dL (3.5-5.0); Alkaline Phosphatase 75 U/L (39-117); Anion Gap 12 (12-20); Aspartate Amino Transferase 26 U/L (5-31); Blood Urea Nitrogen 45 mg/dL (9-16); Calcium 7.9 mg/dL (8.4-10.2); Carbon Dioxide 24 mmol/L (22-29); Chloride 111 mmol/L (96-108); Estimated Glomerular Filt Rate 23; Potassium 4.3 mmol/L (3.3-5.1); Sodium 143 mmol/L (135-145); Total Protein 5.6 g/dL (6.5-8.0)
[2024-09-24 07:24] LABS: Hemoglobin A1C 100.2346 umol/L; Total Hemoglobin (HGBA1C) 2321.9897 umol/L
== END 2024-09-24 06:16 | disposition home or self-care (01) ==
LOC: HO.MMNH3L 06:15
PROVIDERS: Visit Provider Student in an Organized Health Care Education/Training Program
DX: E11.9 Type 2 diabetes mellitus without complications (principal)
CPT/HCPCS: 36415; 80053; 83036; 85025

== ENCOUNTER 2024-11-15 05:35 | Outpatient (REF) | payer MEDICARE, MEDICAID, SELFPAY ==
[2024-11-15 05:37] LABS: MANUAL DIFF FLAG NO
--- OUTSIDE RECORDS SUMMARY | 2024-11-15 05:38 | XMS_ITS | Patient Health Record ---
Author Organization [facility] Address [address] [place] [address] Care Team Providers Care Sales Representative Name Role Phone Blake Hinojosa Unavailable [phone] Reason For Referral No Information Plan Of Treatment No Information
--- OUTSIDE RECORDS SUMMARY | 2024-11-15 05:38 | XMS_ITS | Clinical Summary ---
Author Organization 175 [facility] Address 175 [place] [address] Phone Care Team Providers Care Senior Producer Name Role Phone Denis Andino MD Primary Care Provider [phone] Medications albuterol HFA (PROAIR HFA ; PROVENTIL HFA ; VENTOLIN HFA) 90 mcg/actuation inhaler Inhale 2 puffs by mouth every 6 (six) hours if needed. 09/28/2024 Active allopurinoL (ZYLOPRIM) 100 mg tablet Take 1 tablet (100 mg total) by mouth. 07/25/2024 Active atorvastatin (LIPITOR) 20 mg tablet Take 1 tablet (20 mg total) by mouth at bedtime. 10/01/2024 Active chlorthalidone (HYGROTON) 25 mg tablet Take 1 tablet (25 mg total) by mouth 1 (one) time each day. 10/03/2024 Active clonazePAM (KlonoPIN) 0.5 mg tablet 10/03/2024 Active Trulicity 1.5 mg/0.5 mL pen injector injection 10/24/2024 Active colchicine (COLCRYS) 0.6 mg tablet 04/25/2024 Active traMADoL (ULTRAM) 50 mg tablet 10/17/2024 Active triamcinolone (KENALOG) 0.1 % cream 10/05/2024 Active Encounters Date Type Department Care Team Description 11/05/2024 1:20 PM EDT Consult Gastroenterology [facility] [address] [place] [address] Laya Ramírez, STEPHY Generalized abdominal pain (Primary Dx) 08/15/2024 Telephone Gastroenterology - [place] 175 [facility] 175 [facility] [address] [place] [address] Betsey Guillen MD from Last 3 Months Social History Tobacco Use Types Packs/Day Years Used Date Smoking Tobacco: Never Assessed Comments Unknown Sex and Gender Information Value Date Recorded Sex Assigned at Not on file Legal Sex Female 1:56 PM EST Gender Identity Not on file Sexual Orientation Not on file Last Filed Vital Signs Vital Sign Reading Time Taken Comments Blood Pressure 138/76 11/05/2024 1:41 PM EDT Pulse 65 11/05/2024 1:41 PM EDT Temperature - - Respiratory Rate - - Oxygen Saturation 96% 11/05/2024 1:41 PM EDT Inhaled Oxygen Concentration - - Weight 84.8 kg (187 lb) 11/05/2024 1:41 PM EDT Height 160 cm (5' 3 ) 11/05/2024 1:41 PM EDT Body Mass Index 33.13 11/05/2024 1:41 PM EDT Plan of Treatment Upcoming Encounters Date Type Department Care Team (Late st Contact Info) Description 12/07/2024 8:30 AM EDT Appointment [facility] CT Scan [address] [place] [phone] Health Maintenance Due Date Last Done Comments Diabetes: Annual GFR (Glomerular Filtration Rate) 1944 Diabetes: Annual Foot Exam 1954 Diabetes: Annual Retina Eye Exam 1954 DTaP,Tdap,and Td Vaccines (1 - Tdap) 05/08/1963 Zoster Vaccines (1 of 2) 1994 Pneumococcal Vaccine: 50+ Years (2 of 2 - PCV) 01/04/2015 01/04/2014, 11/09/2005 RSV Immunization Adult Patients (1 - 1-dose 75+ series) 05/08/2019 Depression Screening 02/22/2024 Cholesterol Screening (Lipid Panel) 08/16/2024 Falls Risk Assessment 08/16/2024 Medicare Annual Wellness Visit 08/16/2024 Osteoporosis Screening (Bone Density Screening) 08/16/2024 Social Influencers of Health Screening 08/16/2024 COVID-19 Vaccine ( season) 2024 04/03/2021, 05/21/2020, 04/23/2020, Additional history exists Influenza Vaccine (#1) 2024 09/27/2022, 2021 Diabetes: Annual Urine Albumin-Creatinine Ratio (uACR) 11/05/2024 Diabetes: Blood Sugar Control Test (HGBA1C) 11/05/2024 Hypertension/CHF/CAD Annual BMP Blood Test 11/05/2024 HIB Vaccines Aged Out No longer eligi [...] to complete this topic RSV Immunization Patients Under 20 months Aged Out No longer eligible based on patient's age to complete this topic Varicella Vaccines Aged Out No longer eligible based on patient's age to complete this topic Insurance MEDICARE MEDICAID - [place] Care Teams Senior Producer Relationship Specialty Start Date End Date Denis Andino MD [address] [phone] PCP - General Family Medicine 08/15/24
[2024-11-15 05:48] LABS: Ammonia 79 umol/L (13-55)
[2024-11-15 06:07] LABS: Hematocrit 28.8 % (37.0-47.0); Hemoglobin 9.0 g/dl (12.0-16.0); Imm Gran Abs Auto 0.01 X10*3/uL (0.00-0.03); Imm Gran Pct Auto 0.2 % (0.0-0.4); Lymphocytes Absolute Auto 1.3 X10*3/uL (1.2-4.9); Mean Corpuscular HGB Conc 31.3 g/dl (31.0-35.0); Mean Corpuscular Hemoglobin 29.9 pg (27.0-33.0); Mean Corpuscular Volume 95.7 fL (80.0-98.0); NRBC Abs Auto 0.000 X10*3/uL (0.0-0.012); NRBC Pct Auto 0.0 /100WBC (0.0-0.2); Platelet Count 109 X10*3/uL (160-400); Red Blood Count 3.01 X10*6/uL (4.20-5.50); White Blood Count 4.6 X10*3/uL (4.8-10.8)
[2024-11-15 06:26] LABS: Alanine Aminotransferase 9 U/L (0-31); Albumin Level 2.4 g/dL (3.5-5.0); Alkaline Phosphatase 66 U/L (39-117); Anion Gap 12 (12-20); Aspartate Amino Transferase 18 U/L (5-31); Blood Urea Nitrogen 52 mg/dL (9-16); Calcium 7.9 mg/dL (8.4-10.2); Carbon Dioxide 25 mmol/L (22-29); Chloride 111 mmol/L (96-108); Estimated Glomerular Filt Rate 20; Lipase 17 U/L (8-78); Potassium 4.6 mmol/L (3.3-5.1); Sodium 143 mmol/L (135-145); Total Protein 5.1 g/dL (6.5-8.0)
== END 2024-11-15 05:36 | disposition home or self-care (01) ==
LOC: HO.MMNH3L 05:35
PROVIDERS: Visit Provider Physician Assistant Medical
DX: R11.15 Cyclical vomiting syndrome unrelated to migraine (principal)
CPT/HCPCS: 36415; 80053; 82140; 83690; 85025

== ENCOUNTER 2024-11-19 08:02 | Outpatient (REF) | payer MEDICARE, MEDICAID, SELFPAY ==
--- OUTSIDE RECORDS SUMMARY | 2024-11-20 08:11 | XMS_ITS | Patient Health Record ---
Author Organization [facility] Address [address] [place] [address] Care Team Providers Care Soils Analyst Name Role Phone Blake Hinojosa Unavailable [phone] Reason For Referral No Information Plan Of Treatment No Information
--- OUTSIDE RECORDS SUMMARY | 2024-11-20 08:11 | XMS_ITS | Clinical Summary ---
Author Organization 175 [facility] Address [address] [place] [address] Phone Care Team Providers Care Director Supplier Quality Name Role Phone Denis Andino MD Primary Care Provider [phone] Medications albuterol HFA (PROAIR HFA ; PROVENTIL [...] Encounters Date Type Department Care Team Description 11/15/2024 Telephone Gastroenterology [facility] [address] [place] [address] Laya Ramírez NP 11/05/2024 1:20 PM EDT Consult Gastroenterology - [place] 175 [facility] 175 [facility] [address] [place] [address] Laya Ramírez NP Generalized abdominal pain (Primary Dx) from Last 3 Months Social History Tobacco [...] Info) Description 12/07/2024 8:30 AM EDT Appointment [facility] CT Scan [address] [place] [address] Health Maintenance Due Date Last Done Comments [...] Insurance MEDICARE [place] - [place] Care Teams Director Supplier Quality Relationship Specialty Start Date End Date Denis Andino MD [address] [phone] PCP - General Family Medicine 08/15/24
--- OUTSIDE RECORDS SUMMARY | 2024-11-20 08:11 | XMS_ITS | Clinical Summary ---
Author Organization [facility] Address [address] [place] [address] [address] [place] [address] Phone Care Team Providers Care Lunchroom Attendant Name Role Phone Rossi Montiel MD Primary Care Provider [phone] Allergies Active Allergy Reactions Criticality Noted Date [...] Visit [facility] [address] [place] [address] Rhett Dai MD [address] [facility] [address] [place] [address] Health Maintenance Due Date Last [...] Medicaid [place] Medicare Medicaid [place] Care Teams Lunchroom Attendant Relationship Specialty Start Date End Date Rossi Montiel MD [address] [place], [place] PCP - General 03/03/20
--- OUTSIDE RECORDS SUMMARY | 2024-11-20 08:11 | XMS_ITS | Encounter Summary ---
Author Organization [facility] Address [address] [place] [address] Care Team Providers Care Control And Recovery Special Tactics Name Role Phone Denis Andino MD Primary Care Provider [phone] Reason for Visit * Reason Onset Date Comments provider call back 11/15/2024 Encounter Details Date Type Department Care Team (Late st Contact Info) Description 11/15/2024 Telephone Gastroenterology - [place] [address] [place] [id number] Laya Ramírez NP 175 [facility] 200 [place], [place] [phone] Social History Tobacco Use Types Packs/Day Years Used Date Smoking Tobacco: Never Assessed Comments Unknown Sex and Gender Information Value Date Recorded Sex Assigned at Not on file Legal Sex Female 1:56 PM EST Gender Identity Not on file Sexual Orientation Not on file documented as of this encounter Progress Notes * Carla Kennedy MA - 11/16/2024 3:47 PM EDT Spoke with Nile (RN at [facility] as Lizeth was not in today) and relayed message from Laya. Nile said she would relay message to the provider there. * Laya Ramírez NP - 11/16/2024 5:42 AM EDT Patient is a very poor historian . When I saw her, she was accompanied by two butcher head. She was unable to provide HPI. All she could state was my belly hurts . I recommend present to the ER for further evaluation at [facility] and follow-up afterwards. Also, it is important that she is accompanied by a caregiver or healthcare proxy who can provide health information for better/optimal care. Thank you. * Pauline Cannon - 11/15/2024 2:19 PM EDT Lizeth calling from [facility], . states patient has hyper ammonia levels & would like this settled within 7 days. Wondering if patient should be seen SHASTA or if there is some tests that can be ordered ? Please advise. documented in this encounter Plan of Treatment Upcoming Encounters Date Type Department Care Team (Late st Contact Info) Description 12/07/2024 8:30 AM EDT Appointment [facility] CT Scan [address] [place] [phone] documented as of this encounter Visit Diagnoses Not on filedocumented in this encounter Care Teams Control And Recovery Special Tactics Relationship Specialty Start Date End Date Denis Andino MD [address] [place] [address] [address] [place] [address] PCP - General Family Medicine 08/15/24 documented as of this encounter
[2024-11-20 08:13] LABS: Appearance Urine Cloudy; Glucose Urine UA 250 mg/dL (Negative); PH 5.5 (5.0-9.0); Specific Gravity - Urine 1.020 (1.005-1.025); UMIC TRIGGER UA YES
== END 2024-11-19 08:03 | disposition home or self-care (01) ==
LOC: HO.MMNH3L 08:02
PROVIDERS: Visit Provider Physician Assistant Medical
DX: N18.31 Chronic kidney disease, stage 3a (principal)
CPT/HCPCS: 81001; 87086; 87088; 87186

== ENCOUNTER 2024-11-23 05:32 | Outpatient (REF) | payer MEDICARE, MEDICAID, SELFPAY ==
--- OUTSIDE RECORDS SUMMARY | 2024-11-23 05:43 | XMS_ITS | Clinical Summary ---
Author Organization [facility] Address [address] [place] [address] [address] [place] [address] Phone Care Team Providers Care Customer Loyalty Representative Name Role Phone Rossi Montiel MD Primary Care Provider [phone] Allergies Active Allergy Reactions Criticality Noted Date [...] Visit [facility] [address] [place] [address] Rhett Dai MD [address] [facility] [address] [place] [address] Health Maintenance Due Date Last [...] Medicaid [place] Medicare Medicaid [place] Care Teams Customer Loyalty Representative Relationship Specialty Start Date End Date Rossi Montiel MD [address] [address] [place], [place] PCP - General 03/03/20
--- OUTSIDE RECORDS SUMMARY | 2024-11-23 05:43 | XMS_ITS | Patient Health Record ---
Author Organization [facility] Address [address] [place] [address] Care Team Providers Care Envelope Maker Name Role Phone Blake Hinojosa Unavailable [phone] Reason For Referral No Information Plan Of Treatment No Information
--- OUTSIDE RECORDS SUMMARY | 2024-11-23 05:43 | XMS_ITS | Clinical Summary ---
Author Organization 175 [facility] Address [address] [place] [address] Phone Care Team Providers Care Weed Inspector Name Role Phone Denis Andino MD Primary Care Provider [phone] Medications albuterol HFA (PROAIR HFA ; PROVENTIL [...] Department Care Team Description 11/15/2024 Telephone Gastroenterology [facility] [address] [place] [address] Laya Ramírez NP 11/05/2024 1:20 PM EDT Consult Gastroenterology - [place] 175 [facility] 175 [facility] [address] [place] [address] Laya Ramírez NP Generalized abdominal [...] Info) Description 12/07/2024 8:30 AM EDT Appointment [facility] CT Scan [address] [place] [address] Health Maintenance Due Date Last [...] Insurance MEDICARE [place] - [place] Care Teams Weed Inspector Relationship Specialty Start Date End Date Denis Andino MD [address] [phone] PCP - General Family Medicine 08/15/24
[2024-11-23 05:53] LABS: Ammonia 108 umol/L (13-55)
[2024-11-23 05:59] LABS: Anion Gap 10 (12-20); Blood Urea Nitrogen 44 mg/dL (9-16); Calcium 7.8 mg/dL (8.4-10.2); Carbon Dioxide 25 mmol/L (22-29); Chloride 112 mmol/L (96-108); Estimated Glomerular Filt Rate 22; Potassium 4.4 mmol/L (3.3-5.1); Sodium 143 mmol/L (135-145)
== END 2024-11-23 05:33 | disposition home or self-care (01) ==
LOC: HO.MMNH3L 05:32
PROVIDERS: Visit Provider Student in an Organized Health Care Education/Training Program
DX: N18.31 Chronic kidney disease, stage 3a (principal); K70.9 Alcoholic liver disease, unspecified; R60.0 Localized edema
CPT/HCPCS: 36415; 80048; 82140

== ENCOUNTER 2024-11-26 06:38 | Outpatient (REF) | payer MEDICARE, MEDICAID, SELFPAY ==
[2024-11-26 06:31] LABS: MANUAL DIFF FLAG NO
[2024-11-26 06:41] LABS: Hematocrit 27.0 % (37.0-47.0); Hemoglobin 8.5 g/dl (12.0-16.0); Imm Gran Abs Auto 0.01 X10*3/uL (0.00-0.03); Imm Gran Pct Auto 0.2 % (0.0-0.4); Lymphocytes Absolute Auto 1.1 X10*3/uL (1.2-4.9); Mean Corpuscular HGB Conc 31.5 g/dl (31.0-35.0); Mean Corpuscular Hemoglobin 29.8 pg (27.0-33.0); Mean Corpuscular Volume 94.7 fL (80.0-98.0); NRBC Abs Auto 0.000 X10*3/uL (0.0-0.012); NRBC Pct Auto 0.0 /100WBC (0.0-0.2); Platelet Count 123 X10*3/uL (160-400); Red Blood Count 2.85 X10*6/uL (4.20-5.50); White Blood Count 4.1 X10*3/uL (4.8-10.8)
--- OUTSIDE RECORDS SUMMARY | 2024-11-26 06:44 | XMS_ITS | Clinical Summary ---
Author Organization [facility] Address [address] [place] [address] [address] [place] [phone] Phone Care Team Providers Care Senior Research Consultant Name Role Phone Rossi Montiel MD Primary Care Provider [phone] Allergies Active Allergy Reactions Criticality Noted Date [...] Visit [facility] [address] [place] [address] Rhett Dai MD [address] [facility] [address] [place] [address] Health Maintenance Due Date Last [...] Medicaid [place] Medicare Medicaid [place] Care Teams Senior Research Consultant Relationship Specialty Start Date End Date Rossi Montiel MD [address] [place], [place] PCP - General 03/03/20
--- OUTSIDE RECORDS SUMMARY | 2024-11-26 06:44 | XMS_ITS | Clinical Summary ---
Author Organization 175 [facility] Address 175 [place] [address] Phone Care Team Providers Care Staffing Mgr Name Role Phone Denis Andino MD Primary Care Provider [phone] Medications albuterol HFA (PROAIR HFA ; PROVENTIL [...] Department Care Team Description 11/15/2024 Telephone Gastroenterology [facility] [address] [place] [address] Laya Ramírez NP 11/05/2024 1:20 PM EDT Consult Gastroenterology - [place] 175 [facility] 175 [facility] [address] [place] [address] Laya Ramírez NP Generalized abdominal [...] Info) Description 12/07/2024 8:30 AM EDT Appointment [facility] CT Scan [address] [place] [address] Health Maintenance Due Date Last [...] Insurance MEDICARE [place] - [place] Care Teams Staffing Mgr Relationship Specialty Start Date End Date Denis Andino MD [address] [phone] PCP - General Family Medicine 08/15/24
--- OUTSIDE RECORDS SUMMARY | 2024-11-26 06:44 | XMS_ITS | Patient Health Record ---
Author Organization [facility] Address [address] [place] [address] Care Team Providers Care Audit Lead Name Role Phone Blake Hinojosa Unavailable [phone] Reason For Referral No Information Plan Of Treatment No Information
[2024-11-26 07:37] LABS: Anion Gap 10 (12-20); Blood Urea Nitrogen 48 mg/dL (9-16); Calcium 8.0 mg/dL (8.4-10.2); Carbon Dioxide 26 mmol/L (22-29); Chloride 114 mmol/L (96-108); Estimated Glomerular Filt Rate 21; Potassium 4.6 mmol/L (3.3-5.1); Sodium 145 mmol/L (135-145)
[2024-11-26 07:40] LABS: Thyroid Stimulating Hormone 3.13 uIU/mL (0.32-4.0)
== END 2024-11-26 06:39 | disposition home or self-care (01) ==
LOC: HO.MMNH3L 06:38
PROVIDERS: Visit Provider Student in an Organized Health Care Education/Training Program
DX: I10 Essential (primary) hypertension (principal); E11.42 Type 2 diabetes mellitus with diabetic polyneuropathy; E78.49 Other hyperlipidemia
CPT/HCPCS: 36415; 80048; 83036; 84443; 85025

== ENCOUNTER 2024-12-13 06:00 | Outpatient (REF) | payer MEDICARE, MEDICAID, SELFPAY ==
[2024-12-13 06:14] LABS: Imm Gran Abs Auto 0.01 X10*3/uL (0.00-0.03); Imm Gran Pct Auto 0.3 % (0.0-0.4); Lymphocytes Absolute Auto 1.2 X10*3/uL (1.2-4.9); Mean Corpuscular HGB Conc 31.2 g/dl (31.0-35.0); Mean Corpuscular Hemoglobin 30.0 pg (27.0-33.0); Mean Corpuscular Volume 96.2 fL (80.0-98.0); NRBC Abs Auto 0.000 X10*3/uL (0.0-0.012); NRBC Pct Auto 0.0 /100WBC (0.0-0.2); Red Blood Count 2.10 X10*6/uL (4.20-5.50); White Blood Count 3.9 X10*3/uL (4.8-10.8)
[2024-12-13 06:35] LABS: Anion Gap 12 (12-20); Blood Urea Nitrogen 68 mg/dL (9-16); Calcium 8.0 mg/dL (8.4-10.2); Carbon Dioxide 25 mmol/L (22-29); Chloride 114 mmol/L (96-108); Estimated Glomerular Filt Rate 17; Potassium 4.9 mmol/L (3.3-5.1); Sodium 146 mmol/L (135-145)
[2024-12-13 07:05] LABS: Platelet Count 71 X10*3/uL (160-400)
[2024-12-13 07:08] LABS: Hematocrit 20.2 % (37.0-47.0); Hemoglobin 6.3 g/dl (12.0-16.0); MANUAL DIFF FLAG SCAN
== END 2024-12-13 06:01 | disposition home or self-care (01) ==
LOC: HO.MMNH3L 06:00
PROVIDERS: Visit Provider Physician Assistant Medical
DX: Z13.89 Encounter for screening for other disorder (principal)
CPT/HCPCS: 36415; 80048; 85025

== ENCOUNTER 2025-01-24 06:53 | Outpatient (REF) | payer MEDICARE, MEDICAID, SELFPAY ==
[2025-01-24 06:56] LABS: MANUAL DIFF FLAG NO
--- OUTSIDE RECORDS SUMMARY | 2025-01-24 06:56 | XMS_ITS | Clinical Summary ---
Author Organization 175 [facility] Address [address] [place] [address] Phone Care Team Providers Care Gluing Machine Offbearer Name Role Phone Denis Andino MD Primary Care Provider [phone] Medications albuterol HFA (PROAIR HFA ; PROVENTIL [...] Department Care Team Description 11/15/2024 Telephone Gastroenterology [facility] [address] [place] [address] Laya Ramírez NP 11/05/2024 1:20 PM EDT Consult Gastroenterology - [place] [address] [place] [address] Laya Ramírez NP Generalized abdominal [...] 11/05/2024 1:41 PM EDT Plan of Treatment Health Maintenance Due Date Last Done Comments Diabetes: Annual GFR (Glomerular Filtration Rate) 1944 Diabetes: Annual Foot Exam 1954 Diabetes: Annual Retina Eye Exam 1954 DTaP,Tdap,and Td Vaccines (1 - Tdap) 05/08/1963 Hepatitis A Vaccines (1 of 2 - Risk 2-dose series) 05/08/1963 Zoster Vaccines (1 of 2) 1994 Hepatitis B Vaccines (1 of 3 - Risk 3-dose series) 2004 Pneumococcal Vaccine: 50+ Years (2 of 2 - PCV) 01/04/2015 01/04/2014, 11/09/2005 RSV Immunization Adult Patients (1 - 1-dose 75+ series) 05/08/2019 Depression Screening 02/22/2024 Cholesterol Screening (Lipid Panel) 08/16/2024 Falls Risk Assessment 08/16/2024 Medicare Annual Wellness Visit 08/16/2024 Osteoporosis Screening (Bone Density Screening) 08/16/2024 Social Influencers of Health Screening 08/16/2024 COVID-19 Vaccine ( season) 2024 02/02/2024, 04/07/2023, 12/03/2021, Additional history exists Diabetes: Annual Urine Albumin-Creatinine Ratio (uACR) 11/05/2024 Diabetes: Blood Sugar Control Test (HGBA1C) 11/05/2024 Hypertension/CHF/CAD Annual BMP Blood Test 11/05/2024 Influenza Vaccine Completed 11/26/2024, , 09/27/2022, Additional history exists HIB Vaccines Aged Out No longer eligi [...] complete this topic Insurance MEDICARE MEDICAID - [place] Care Teams Gluing Machine Offbearer Relationship Specialty Start Date End Date Denis Andino MD [address] [place] [phone] PCP - General Family Medicine 08/15/24
--- OUTSIDE RECORDS SUMMARY | 2025-01-24 06:56 | XMS_ITS | Clinical Summary ---
Author Organization [facility] Address [address] [place] [address] Phone Care Team Providers Care Neurology Manager Name Role Phone Denis Andino MD Primary Care Provider [phone] Allergies Active Allergy Reactions Criticality Noted Date [...] Adjuvanted 08/2022 Influenza, Quadrivalent, With Preservative 12/09 [employer] SARS-COV-2 05/21/2020,04/21/2020 Family History Medical History Relation [...] Care Team (Late st Contact Info) Description 03/04/2025 4:00 PM EST Office Visit [facility] [address] [place] [address] Rhett Dai MD [address] [facility] [address] [place] [address] Health Maintenance Due Date Last Done Comments Hepatitis B Vaccine (1 of 3 - Risk 3-dose series) 2004 Pneumococcal Vaccine: 50+ Ye ars (3 of 3 - PCV) 01/04/2015 01/04/2014, 11/09/2005 Diabetes: Hemoglobin A1C 03/24/2020 Diabetes: Ophthalmology Exam 03/24/2020 Diabetes: Pedal Pulse Checked 03/24/2020 Diabetes: Sensory Foot Exam 03/24/2020 Diabetes: Visual Foot Exam 03/24/2020 Influenza Vaccine (#1) 2024 09/27/2022, 2021 Pneumococcal Vaccine: Peds ( 0 to 5 Years) and At-Risk Patients (6 to 49 Years) Discontinued 01/04/2014, 11/09/2005 Insurance Medicare Medicaid [place] Medicare Medicaid [place] Medicare Medicaid [place] Care Teams Neurology Manager Relationship Specialty Start Date End Date Denis Andino MD [address] [place] [phone] PCP - General Family Medicine 12/03/24
--- OUTSIDE RECORDS SUMMARY | 2025-01-24 06:56 | XMS_ITS | Patient Health Record ---
Author Organization [facility] Address [address] [place] [address] Care Team Providers Care Print Inspector Name Role Phone Blake Hinojosa Unavailable [phone] Reason For Referral No Information Plan Of Treatment No Information
[2025-01-24 07:49] LABS: Imm Gran Abs Auto 0.01 X10*3/uL (0.00-0.03); Imm Gran Pct Auto 0.3 % (0.0-0.4); Lymphocytes Absolute Auto 0.9 X10*3/uL (1.2-4.9); Mean Corpuscular HGB Conc 29.2 g/dl (31.0-35.0); Mean Corpuscular Hemoglobin 28.1 pg (27.0-33.0); Mean Corpuscular Volume 96.1 fL (80.0-98.0); NRBC Abs Auto 0.000 X10*3/uL (0.0-0.012); NRBC Pct Auto 0.0 /100WBC (0.0-0.2); Platelet Count 108 X10*3/uL (160-400); Red Blood Count 1.78 X10*6/uL (4.20-5.50); White Blood Count 3.6 X10*3/uL (4.8-10.8)
[2025-01-24 07:54] LABS: Hematocrit 17.1 % (37.0-47.0); Hemoglobin 5.0 g/dl (12.0-16.0)
[2025-01-24 07:57] LABS: Anion Gap 13 (12-20); Blood Urea Nitrogen 56 mg/dL (9-16); Calcium 7.8 mg/dL (8.4-10.2); Carbon Dioxide 25 mmol/L (22-29); Chloride 110 mmol/L (96-108); Estimated Glomerular Filt Rate 19; Potassium 4.2 mmol/L (3.3-5.1); Sodium 144 mmol/L (135-145)
== END 2025-01-24 06:54 | disposition home or self-care (01) ==
LOC: HO.MMNH3L 06:53
PROVIDERS: Visit Provider Physician Assistant Medical
DX: E11.22 Type 2 diabetes mellitus with diabetic chronic kidney disease (principal); N18.9 Chronic kidney disease, unspecified; K74.60 Unspecified cirrhosis of liver
CPT/HCPCS: 36415; 80048; 85025

== ENCOUNTER 2025-01-28 07:27 | Outpatient (REF) | payer MEDICARE, MEDICAID, SELFPAY ==
--- OUTSIDE RECORDS SUMMARY | 2025-01-28 07:31 | XMS_ITS | Clinical Summary ---
Author Organization 175 [facility] Address [address] [place] [address] Phone Care Team Providers Care Safety Director Name Role Phone Denis Andino MD Primary Care Provider [phone] Medications albuterol HFA (PROAIR HFA ; PROVENTIL [...] Department Care Team Description 11/15/2024 Telephone Gastroenterology [facility] [address] [place] [address] Laya Ramírez NP 11/05/2024 1:20 PM EDT Consult Gastroenterology - [place] [address] [place] [address] Laya Ramírez NP Generalized abdominal [...] complete this topic Insurance MEDICARE MEDICAID - [place] Care Teams Safety Director Relationship Specialty Start Date End Date Denis Andino MD [address] [place] [phone] PCP - General Family Medicine 08/15/24
--- OUTSIDE RECORDS SUMMARY | 2025-01-28 07:31 | XMS_ITS | Patient Health Record ---
Author Organization [facility] Address [address] [place] [address] Care Team Providers Care Stone Trimmer Name Role Phone Blake Hinojosa Unavailable [phone] Reason For Referral No Information Plan Of Treatment No Information
--- OUTSIDE RECORDS SUMMARY | 2025-01-28 07:31 | XMS_ITS | Clinical Summary ---
Author Organization [facility] Address [address] [place] [address] Phone Care Team Providers Care Charrer Name Role Phone Denis Andino MD Primary Care Provider [phone] Allergies Active Allergy Reactions Criticality Noted Date [...] Adjuvanted 08/2022 Influenza, Quadrivalent, With Preservative 12/09 [employer] SARS-COV-2 05/21/2020,04/21/2020 Family History Medical History Relation [...] Visit [facility] [address] [place] [address] Rhett Dai MD [address] [facility] [address] [place] [address] Health Maintenance Due Date Last [...] Medicaid [place] Medicare Medicaid [place] Care Teams Charrer Relationship Specialty Start Date End Date Denis Andino MD [address] [place] [phone] PCP - General Family Medicine 12/03/24
[2025-01-28 08:41] LABS: INTERNATIONAL NORM RATIO 1.0 (0.9-1.1); Prothrombin Time 12.1 SEC (11.2-13.5)
[2025-01-28 08:51] LABS: Alanine Aminotransferase 10 U/L (0-31); Albumin Level 2.7 g/dL (3.5-5.0); Alkaline Phosphatase 81 U/L (39-117); Anion Gap 14 (12-20); Aspartate Amino Transferase 20 U/L (5-31); Blood Urea Nitrogen 57 mg/dL (9-16); Calcium 8.1 mg/dL (8.4-10.2); Carbon Dioxide 28 mmol/L (22-29); Chloride 107 mmol/L (96-108); Potassium 4.5 mmol/L (3.3-5.1); Sodium 144 mmol/L (135-145); Total Protein 5.8 g/dL (6.5-8.0)
== END 2025-01-28 07:28 | disposition home or self-care (01) ==
LOC: HO.MMNH3L 07:27
PROVIDERS: Visit Provider Physician Assistant Medical
DX: Z13.89 Encounter for screening for other disorder (principal)
CPT/HCPCS: 36415; 80069; 80076; 82247; 82248; 84075; 84155; 84450; 84460; 85610